=== PATIENT | female | born 1990 | race Caucasian/White ===

== ENCOUNTER 2018-05-12 14:13 | Emergency (ER) | payer SELFPAY ==
--- NOTE | 2018-05-12 17:12 | RAD REPORT ---
EXAM DESCRIPTION: RAD - Hip Right 2 View - 05/12/2018 5:04 pm CLINICAL HISTORY: Right hip pain FINDINGS: No fracture or dislocation is seen. No bone or joint abnormality is seen
[2018-05-12] MEDS ORDERED: HYDROCODONE/APAP 10/325 TAB ONE (17:50)
--- NOTE | 2018-05-12 17:57 | EDPHYS ---
Physician Documentation [facility] Name: Genesis Hu Age: 27 yrs Sex: Female : 1990 Arrival Date: 05/12/2018 Time: 14:17 Bed 9 Private MD: ED Physician Alverto Ferrer HPI: 05/12 16:45 This 27 yrs old Female presents to ER via Ambulatory with complaints of Hip kav Pain. 16:49 The patient or guardian reports decreased range of motion, pain. that occurred at an kav unknown site, sustained from unknown reason, There is no obvious deformity, The patient is able to self ambulate. The patient is able to bear their full body weight. There is no radiation of the patient's discomfort. The complaints affect the abdomen and right hip. Onset: The symptoms/episode began/occurred acutely, just prior to arrival. Modifying factors: The symptoms are alleviated by OTC meds, the symptoms are aggravated by external rotation. Associated signs and symptoms: Pertinent positives: weakness, of the right hip, Pertinent negatives: fever. Severity of symptoms: At their worst the symptoms were severe, a " 10" out of "10". The patient has experienced a previous episode, approximately 2 years ago. The patient has not recently seen a physician. 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 - Social history:: Smoking status: Patient/guardian denies using tobacco. - Ebola Screening: : Patient denies travel to an Ebola-affected area in the 21 days before illness onset. - Family history:: not pertinent. - Hospitalizations: : No recent hospitalization is reported. ROS: 16:54 Constitutional: Negative for fever, chills, and weight loss, Eyes: Negative for injury, kav pain, redness, and discharge, ENT: Negative for injury, pain, and discharge, Neck: Negative for injury, pain, and swelling, Cardiovascular: Negative for chest pain, palpitations, and edema, Respiratory: Negative for shortness of breath, cough, wheezing, and pleuritic chest pain, Abdomen/GI: Negative for abdominal pain, nausea, vomiting, diarrhea, and constipation, Back: Negative for injury and pain, : Negative for injury, bleeding, discharge, and swelling, Skin: Negative for injury, rash, and discoloration, Neuro: Negative for headache, weakness, numbness, tingling, and seizure, Psych: Negative for depression, anxiety, suicide ideation, homicidal ideation, and hallucinations, Allergy/Immunology: Negative for hives, rash, and allergies, Endocrine: Negative for neck swelling, polydipsia, polyuria, polyphagia, and marked weight changes, Hematologic/Lymphatic: Negative for swollen nodes, abnormal bleeding, and unusual bruising. 16:54 MS/extremity: Positive for pain, of the right hip. Exam: 16:54 Constitutional: This is a well developed, well nourished patient who is awake, alert, kav and in no acute distress. Head/Face: Normocephalic, atraumatic. Eyes: Pupils equal round and reactive to light, extra-ocular motions intact. Lids and lashes normal. Conjunctiva and sclera are non-icteric and not injected. Cornea within normal limits. Periorbital areas with no swelling, redness, or edema. ENT: Nares patent. No nasal discharge, no septal abnormalities noted. Tympanic membranes are normal and external auditory canals are clear. Oropharynx with no redness, swelling, or masses, exudates, or evidence of obstruction, uvula midline. Mucous membranes moist. Neck: Trachea midline, no thyromegaly or masses palpated, and no cervical lymphadenopathy. Supple, full range of motion without nuchal rigidity, or vertebral point tenderness. No Meningismus. Chest/axilla: Normal chest wall appearance and motion. Nontender with no deformity. No lesions are appreciated. Cardiovascular: Regular rate and rhythm with a normal S1 and S2. No gallops, murmurs, or rubs. Normal PMI, no JVD. No pulse deficits. Respiratory: Lungs have equal breath sounds bilaterally, clear to auscultation and percussion. No rales, rhonchi or wheezes noted. No increased work of breathing, no retractions or nasal flaring. Abdomen/GI: Soft, non-tender, with normal bowel sounds. No distension or tympany. No guarding or rebound. No evidence of tenderness throughout. Back: No spinal tenderness. No costovertebral tenderness. Full range of motion. Skin: Warm, dry with normal turgor. Normal color with no rashes, no lesions, and no evidence of cellulitis. Neuro: Awake and alert, GCS 15, oriented to person, place, time, and situation. Cranial nerves II-XII grossly intact. Motor strength 5/5 in all extremities. Sensory grossly intact. Cerebellar exam normal. Normal gait. Psych: Awake, alert, with orientation to person, place and time. Behavior, mood, and affect are within normal limits. 16:54 Musculoskeletal/extremity: Extremities: noted in the right hip: pain, ROM: limited passive range of motion, in the right hip, Circulation is intact in all extremities. Pulses: noted to be 2+ in the right femoral artery, right popliteal artery, right posterior tibial artery and right dorsalis pedis artery, Sensation intact. Joints: the right hip displays pain at rest, painful range of motion, Weight bearing: able to fully bear weight, without difficulty. Vital Signs: 15:10 BP 117 / 84; Pulse 101; Resp 18; Temp 98.2; Pulse Ox 99% on R/A; Weight 72.57 kg (R); aj1 Height 5 ft. 6 in. (167.64 cm) (R); Pain 10/10; 15:10 Body Mass Index 25.82 (72.57 kg, 167.64 cm) [facility] MDM: 16:45 Medical screening is not applicable. [facility] 17:18 Data reviewed: vital signs, nurses notes, radiologic studies, plain films. [facility] 05/12 17:52 Order name: Urine Dipstick--Ancillary (enter results) 05/12 17:52 Order name: Urine --Ancillary (enter results) 05/12 15:12 Order name: Hip Right 2 View XRAY; Complete Time: 17:17 [facility] Administered Medications: 17:50 Drug: [place] 10 mg-325 mg 1 tabs Route: PO; iw Disposition: 05/13 14:14 Co-signature as Attending Physician, Alverto Ferrer MD I agree with the assessment and kdr plan of care. Disposition: 05/12/18 17:21 Discharged to Home. Impression: Pain in right hip. - Condition is Stable. - Discharge Instructions: Musculoskeletal Pain, Hip Pain. - Prescriptions for Tylenol- Codeine #3 300-30 mg Oral Tablet - take 1 tablet by ORAL route every 6 hours As needed; 10 tablet. - Work release form, Medication Reconciliation Form, Thank You Letter, Prescription Opioid Use form. - Follow up: Gagan Blancas MD; When: 5 - 6 days; Reason: Recheck today's complaints, Continuance of care, Re-evaluation by your physician. - Problem is chronic. - Symptoms have improved. Signatures: Dispatcher [employer] EDJuliana Morejon, RN RN aj1 Alverto Ferrer MD MD kdr Vern, Katherine, RAILROAD CAR PAINTER RAILROAD CAR PAINTER Veronica Banks RN RN iw Corrections: (The following items were deleted from the chart) 05/12 17:57 17:21 05/12/2018 17:21 Discharged to Home. Impression: Pain in right hip. Condition is iw Stable. Forms are Medication Reconciliation Form, Thank You Letter, Antibiotic Education, Prescription Opioid Use. Follow up: Gagan Blancas; When: 5 - 6 days; Reason: Recheck today's complaints, Continuance of care, Re-evaluation by your physician. Problem is chronic. Symptoms have improved. kav
--- NOTE | 2018-05-12 17:57 | ER ---
Nurse's Notes [facility] Name: Genesis Hu Age: 27 yrs Sex: Female : 1990 Arrival Date: 05/12/2018 Time: 14:17 Bed 9 Private MD: Diagnosis: Pain in right hip Presentation: 05/12 15:06 Presenting complaint: Patient states: States that she is double jointed in her hips and aj1 very little cartilage in her hip joints. Last night she was laying down and suddenly she heard her hip pop, and she screamed out in pain. Reports pain to the right hip that radiates down her right leg. Reports numbness in right foot. Transition of care: patient was not received from another setting of care. Onset of symptoms was May 11, 2018. Risk Assessment: Do you want to hurt yourself or someone else? Patient reports no desire to harm self or others. Initial Sepsis Screen: Does the patient meet any 2 criteria? HR > 90 bpm. No. Patient's initial sepsis screen is negative. Does the patient have a suspected source of infection? No. Patient's initial sepsis screen is negative. Care prior to arrival: None. 15:06 Method Of Arrival: Ambulatory aj1 15:06 Acuity: KRISTIN 4 aj1 Triage Assessment: 15:10 General: Appears in no apparent distress. uncomfortable, Behavior is calm, cooperative, aj1 appropriate for age. Pain: Complains of pain in right hip Pain radiates to right leg Pain currently is 10 out of 10 on a pain scale. Neuro: Level of Consciousness is awake, alert, obeys commands. Cardiovascular: Patient's skin is warm and dry. Respiratory: Airway is patent Respiratory effort is even, unlabored, Respiratory pattern is regular, symmetrical. Musculoskeletal: Range of motion: limited in right hip. HOSPICE MUSIC THERAPY: 15:10 LMP 05/07/2018 aj1 Historical: - Allergies: 15:10 Latex, Natural Rubber; aj1 15:10 Bleach (Sodium Hypochlorite); aj1 - Home Meds: 15:10 None [Active]; aj1 - PMHx: 15:10 PCOS; aj1 - PSHx: 15:10 ; aj1 - Immunization history:: Flu vaccine is not up to date. - Social history:: Smoking status: Patient/guardian denies using tobacco. - Ebola Screening: : Patient denies travel to an Ebola-affected area in the 21 days before illness onset. - Family history:: not pertinent. - Hospitalizations: : No recent hospitalization is reported. Screenin:56 Abuse screen: Denies threats or abuse. Denies injuries from another. Nutritional iw screening: No deficits noted. Tuberculosis screening: No symptoms or risk factors identified. Fall Risk None identified. Assessment: 17:10 General: Appears in no apparent distress. Behavior is calm, cooperative. Pain: iw Complains of pain in right leg and pelvis and right hip. Neuro: Level of Consciousness is awake, alert, obeys commands, Oriented to person, place, time, situation, Moves all extremities. Cardiovascular: Patient's skin is warm and dry. Respiratory: Respiratory effort is even, unlabored. Derm: Skin is pink, warm \T\ dry. normal. Musculoskeletal: Range of motion: limited in right hip Reports pain in right hip. Vital Signs: 15:10 BP 117 / 84; Pulse 101; Resp 18; Temp 98.2; Pulse Ox 99% on R/A; Weight 72.57 kg (R); aj1 Height 5 ft. 6 in. (167.64 cm) (R); Pain 10/10; 15:10 Body Mass Index 25.82 (72.57 kg, 167.64 cm) aj1 ED Course: 14:17 Patient arrived in ED. mr 15:09 Triage completed. aj1 15:10 Arm band placed on Patient placed in an internal wait recliner, Patient notified of aj1 wait time. 15:38 Jerrica Hi FNP is PHCP. kav 16:15 Veronica Mcdermott, RN is Primary Nurse. iw 16:53 Patient moved to radiology via wheelchair. tm4 16:58 X-ray completed. Patient tolerated procedure well. tm4 16:59 Patient moved back from radiology. tm4 17:00 Hip Right 2 View XRAY In Process Unspecified. EDMS 17:20 Gagan Blancas MD is Referral Physician. kav 17:23 Jerrica Hi FNP is PHCP. kav 17:24 Alverto Ferrer MD is Attending Physician. kav 17:57 Patient has correct armband on for positive identification. iw 17:57 No provider procedures requiring assistance completed. Patient did not have IV access iw during this emergency room visit. Administered Medications: 17:50 Drug: [place] 10 mg-325 mg 1 tabs Route: PO; iw Outcome: 17:21 Discharge ordered by . river 17:56 Discharged to home via wheelchair, with family. iw 17:56 Condition: good 17:56 Discharge instructions given to patient, family, Instructed on discharge instructions, follow up and referral plans. medication usage, Demonstrated understanding of instructions, follow-up care, medications, Prescriptions given X 1. 17:57 Patient left the ED. iw Signatures: Dispatcher [employer] EDMS Juliana Cazares, IRENE RN aj1 Jerrica Hi, RUG UNDERLAY MACHINE OPERATOR RUG UNDERLAY MACHINE OPERATOR Sandra Cespedes mr Rosie Maloney tm4 Veronica Mcdermott, IRENE RN iw
[2018-05-12 18:00] VITALS: BP 117/84; TEMP 98.2; O2SAT 99
[2018-05-12 18:33] LABS: Urine Blood 2+ (NEG); Urine Glucose NEGATIVE (NEG); Urine Protein TRACE (NEG); Urine Specific Gravity >1.030 (1.005-1.030); Urine pH 5.5 (5.0-7.0)
== END 2018-05-12 17:57 | disposition home or self-care (01) ==
LOC: ER 14:13
DX: M25.551 Pain in right hip (principal); Z91.040 Latex allergy status; Z91.048 Other nonmedicinal substance allergy status
CPT/HCPCS: 81003; 81025; 99283

== ENCOUNTER 2018-06-24 16:22 | Emergency (ER) | payer SELFPAY ==
[2018-06-24 17:13] LABS: Urine Blood 3+ (NEG); Urine Glucose NEGATIVE (NEG); Urine Protein 2+ (NEG); Urine Specific Gravity 1.015 (1.005-1.030); Urine pH 6.5 (5.0-7.0)
[2018-06-24 17:15] LABS: Absolute Lymphocytes (CBC) 2.1 K/uL (0.7-4.9); Absolute Monocytes 0.5 K/uL (0.1-1.3); Absolute Neutrophil 5.2 K/uL (1.8-8.0); Basophils % 0.6 % (0-1.3); Eosinophils % 3.1 % (0-4.4); Lymphocytes % 25.6 % (15.3-44.8); MCH 29.1 pg (27.0-35.0); MCV 86.6 fL (80-100); Monocytes % 5.7 % (3.3-12.3)
[2018-06-24 17:28] LABS: Potassium 3.8 mmol/L (3.5-5.1)
--- NOTE | 2018-06-24 18:11 | RAD REPORT ---
EXAM DESCRIPTION: US - Transvaginal Study Probe - 06/24/2018 5:28 pm CLINICAL HISTORY: Vaginal bleeding;Abd pain Pelvic pain. COMPARISON: TRANSVAGINAL STUDY PROBE dated 04/21/2011 FINDINGS: The uterus is normal in size, shape and echotexture. The uterus measures 8.9 x 5.6 x 5.3 c m. The endometrial stripe measures 19 mm. Both ovaries are normal in size, shape and echotexture. The right ovary measures 4.4 x 3.4 x 3.3 cm. The left ovary measures 2.7 x 1.8 x 1.7 cm. No ovarian or parovarian lesions. No adnexal masses. Normal Doppler blood flow was demonstrated to both ovaries. No significant pelvic ascites. IMPRESSION: Unremarkable study.
--- NOTE | 2018-06-24 18:16 | ER ---
Nurse's Notes [facility] Name: Genesis Hu Age: 27 yrs Sex: Female : 1990 Arrival Date: 06/24/2018 Time: 16:25 Bed 25 Private MD: None, None Diagnosis: Abnormal uterine and vaginal bleeding, unspecified Presentation: 06/24 16:30 Presenting complaint: Patient states: vaginal bleeding with large clots that started sv yesterday. Pt reports using 2 super pad every hour. Pt reports dizziness. Transition of care: patient was not received from another setting of care. Onset of symptoms was June 23, 2018. Care prior to arrival: None. 16:30 Method Of Arrival: Ambulatory sv 16:30 Acuity: KRISTIN 3 sv 18:31 Risk Assessment: Do you want to hurt yourself or someone else? Patient reports no mg2 desire to harm self or others. Initial Sepsis Screen: Does the patient meet any 2 criteria? No. Patient's initial sepsis screen is negative. Does the patient have a suspected source of infection? No. Patient's initial sepsis screen is negative. 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 - Social history:: Smoking status: Patient/guardian denies using tobacco. - Ebola Screening: : No symptoms or risks identified at this time. Screenin:30 Abuse screen: Denies threats or abuse. Denies injuries from another. Nutritional mg2 screening: No deficits noted. Tuberculosis screening: No symptoms or risk factors identified. Fall Risk None identified. Assessment: 17:30 Musculoskeletal: Circulation, motion, and sensation intact. mg2 18:29 General: Appears in no apparent distress. comfortable, Behavior is calm, cooperative. mg2 Pain: Denies pain. Neuro: Level of Consciousness is awake, alert, obeys commands, Oriented to person, place, time, situation. Cardiovascular: No deficits noted. Respiratory: No deficits noted. GI: No deficits noted. : Urine is blood tinged, Reports vaginal bleeding that is with clots. EENT: No signs and/or symptoms were reported regarding the EENT system. Derm: Skin is intact, Skin is pink, warm \T\ dry. normal. Vital Signs: 16:31 BP 134 / 75; Pulse 77; Resp 18; Temp 98.6; Pulse Ox 98% ; Weight 72.57 kg; Height 5 ft. sv 6 in. (167.64 cm); Pain 3/10; 18:00 BP 127 / 82 RA Supine (auto/reg); Pulse 75 MON; Resp 18 S; Pulse Ox 100% on R/A; Pain jp3 5/10; 18:08 BP 130 / 81 RA Sitting (auto/reg); Pulse 66 MON; Resp 18 S; Pulse Ox 100% on R/A; Pain jp3 5/10; 18:12 BP 135 / 73 RA Standing (auto/reg); Pulse 85 MON; Resp 18 S; Pulse Ox 100% on R/A; Pain jp3 5/10; 16:31 Body Mass Index 25.82 (72.57 kg, 167.64 cm) sv ED Course: 16:25 Patient arrived in ED. sb2 16:25 None, None is Private Physician. sb2 16:31 Triage completed. sv 16:32 Arm band placed on right wrist. sv 16:38 Charity Bates [facility]C [facility]. kb 16:38 Guillermo Roca MD is Attending Physician. kb 16:50 Initial lab(s) drawn, by me, sent to lab. Urine collected: clean catch specimen, clear, jp3 blood tinged. 16:54 Radiology exam delayed due to ultrasound delay due to blood being drawn. cy 16:55 Inserted saline lock: 22 gauge in left antecubital area, using aseptic technique. Blood jp3 collected. 17:11 Placed in gown. Bed in low position. Call light in reach. Side rails up X 1. Warm jp3 blanket given. Pillow given. Pulse ox on. NIBP on. 17:12 Basic Metabolic Panel Sent. jp3 17:12 CBC with Diff Sent. jp3 17:28 US Transvaginal Study (Probe) In Process Unspecified. EDMS 18:21 Shiva Alva, RN is Primary Nurse. mg2 18:23 IV discontinued, intact, bleeding controlled, No redness/swelling at site. Pressure jp3 dressing applied. 18:31 No provider procedures requiring assistance completed. mg2 18:31 IV discontinued. mg2 Administered Medications: No medications were administered Outcome: 18:15 Discharge ordered by . jose 18:31 Discharged to home ambulatory, with family. mg2 18:31 Condition: good 18:31 Discharge instructions given to patient, family, Instructed on discharge instructions, follow up and referral plans. Demonstrated understanding of instructions, follow-up care. 18:32 Patient left the ED. mg2 Signatures: Dispatcher [employer] EDMS Charity Bates, SHAJI-C SENIOR INFORMATION SECURITY CONSULTANT-Elyssa Vaughn, RN RN sv Carolin Bruno Sheri sb2 Shiva Alva, IRENE RN mg2 Alfredito Fernández jp3
--- NOTE | 2018-06-24 18:16 | EDPHYS ---
Physician Documentation [facility] Name: Genesis Hu Age: 27 yrs Sex: Female : 1990 Arrival Date: 06/24/2018 Time: 16:25 Bed 25 Private MD: None, None ED Physician Guillermo Roca HPI: 06/24 16:43 This 27 yrs old Female presents to ER via Ambulatory with complaints of kb Vaginal Bleeding. 16:43 The patient presents with vaginal bleeding that is moderate, heavy, with clots. Onset: kb The symptoms/episode began/occurred at 12:00. Modifying factors: The symptoms are alleviated by nothing, the symptoms are aggravated by nothing. Associated signs and symptoms: Pertinent positives: vaginal bleeding, Pertinent negatives: constipation, cramping, diarrhea, dyspareunia, dysuria, fever, hematuria, nausea, urinary frequency, vaginal discharge, vomiting. Severity of symptoms: At their worst the symptoms were moderate, in the emergency department the symptoms are unchanged. The patient is sexually active. The patient's method of control includes tubal ligation. The patient has not experienced similar symptoms in the past. The patient has not recently seen a physician. 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 - Social history:: Smoking status: Patient/guardian denies using tobacco. - Ebola Screening: : No symptoms or risks identified at this time. ROS: 16:47 Constitutional: Negative for fever, chills, and weight loss, Cardiovascular: Negative kb for chest pain, palpitations, and edema, Respiratory: Negative for shortness of breath, cough, wheezing, and pleuritic chest pain, Back: Negative for injury and pain, MS/Extremity: Negative for injury and deformity, Skin: Negative for injury, rash, and discoloration, Neuro: Negative for headache, weakness, numbness, tingling, and seizure. 16:47 Abdomen/GI: Positive for abdominal pain. 16:47 : Positive for vaginal bleeding. Exam: 16:47 Constitutional: This is a well developed, well nourished patient who is awake, alert, kb and in no acute distress. Head/Face: Normocephalic, atraumatic. Neck: Trachea midline, no thyromegaly or masses palpated, and no cervical lymphadenopathy. Supple, full range of motion without nuchal rigidity, or vertebral point tenderness. No Meningismus. Chest/axilla: Normal chest wall appearance and motion. Nontender with no deformity. No lesions are appreciated. Cardiovascular: Regular rate and rhythm with a normal S1 and S2. No gallops, murmurs, or rubs. Normal PMI, no JVD. No pulse deficits. Respiratory: Lungs have equal breath sounds bilaterally, clear to auscultation and percussion. No rales, rhonchi or wheezes noted. No increased work of breathing, no retractions or nasal flaring. Skin: Warm, dry with normal turgor. Normal color with no rashes, no lesions, and no evidence of cellulitis. MS/ Extremity: Pulses equal, no cyanosis. Neurovascular intact. Full, normal range of motion. Neuro: Awake and alert, GCS 15, oriented to person, place, time, and situation. Cranial nerves II-XII grossly intact. Motor strength 5/5 in all extremities. Sensory grossly intact. Cerebellar exam normal. Normal gait. 16:47 Abdomen/GI: Inspection: abdomen appears normal, Bowel sounds: normal, Palpation: mild abdominal tenderness, in the suprapubic area, right lower quadrant and left lower quadrant. Vital Signs: 16:31 BP 134 / 75; Pulse 77; Resp 18; Temp 98.6; Pulse Ox 98% ; Weight 72.57 kg; Height 5 ft. sv 6 in. (167.64 cm); Pain 3/10; 18:00 BP 127 / 82 RA Supine (auto/reg); Pulse 75 MON; Resp 18 S; Pulse Ox 100% on R/A; Pain jp3 5/10; 18:08 BP 130 / 81 RA Sitting (auto/reg); Pulse 66 MON; Resp 18 S; Pulse Ox 100% on R/A; Pain jp3 5/10; 18:12 BP 135 / 73 RA Standing (auto/reg); Pulse 85 MON; Resp 18 S; Pulse Ox 100% on R/A; Pain jp3 5/10; 16:31 Body Mass Index 25.82 (72.57 kg, 167.64 cm) sv MDM: 16:38 Patient medically screened. kb 16:46 Data reviewed: vital signs, nurses notes. Data interpreted: Pulse oximetry: on room air kb is 98 %. Interpretation: normal. 18:00 Counseling: I had a detailed discussion with the patient and/or guardian regarding: the kb historical points, exam findings, and any diagnostic results supporting the discharge/admit diagnosis, lab results, radiology results, the need for outpatient follow up, an OB/Gyne specialist, to return to the emergency department if symptoms worsen or persist or if there are any questions or concerns that arise at home. 06/24 16:42 Order name: CBC with Diff; Complete Time: 17:28 kb 06/24 16:42 Order name: Basic Metabolic Panel; Complete Time: 17:28 kb 06/24 16:42 Order name: Urine Dipstick-Ancillary (obtain specimen); Complete Time: 17:12 kb 06/24 16:42 Order name: US Transvaginal Study (Probe); Complete Time: 18:11 kb 06/24 17:11 Order name: Urine Dipstick--Ancillary (enter results); Complete Time: 17:15 mb4 06/24 17:11 Order name: Urine --Ancillary (enter results); Complete Time: 17:15 mb4 06/24 16:42 Order name: Urine Test (obtain specimen); Complete Time: 17:12 kb 06/24 17:46 Order name: Orthostatics; Complete Time: 18:16 kb Administered Medications: No medications were administered Disposition: 06/25 08:28 Co-signature as Attending Physician, Guillermo Roca MD I agree with the assessment and wa plan of care. Disposition: 06/24/18 18:15 Discharged to Home. Impression: Abnormal uterine and vaginal bleeding, unspecified. - Condition is Stable. - Discharge Instructions: Abnormal Uterine Bleeding, [id number]. - Medication Reconciliation Form, Thank You Letter, Antibiotic Education, Prescription Opioid Use, Work release form form. - Follow up: Emergency Department; When: As needed; Reason: Worsening of condition. Follow up: Private Physician; When: 2 - 3 days; Reason: Recheck today's complaints, Continuance of care, Re-evaluation by your physician. Signatures: Dispatcher [employer] EDMS Charity Bates, LEGAL COUNSEL-C LEGAL COUNSEL-Ckb Elyssa Wright, RN RN sv Guillermo Roca MD MD wa Gardose, Michele, RN RN mg2 Corrections: (The following items were deleted from the chart) 06/24 18:32 18:15 06/24/2018 18:15 Discharged to Home. Impression: Abnormal uterine and vaginal mg2 bleeding, unspecified. Condition is Stable. Discharge Instructions: Abnormal Uterine Bleeding, [id number]. Forms are Medication Reconciliation Form, Thank You Letter, Antibiotic Education, Prescription Opioid Use. Follow up: Emergency Department; When: As needed; Reason: Worsening of condition. Follow up: Private Physician; When: 2 - 3 days; Reason: Recheck today's complaints, Continuance of care, Re-evaluation by your physician. kb
[2018-06-24 18:44] VITALS: TEMP 98.6
[2018-06-24 18:45] VITALS: O2SAT 100
[2018-06-24 18:47] VITALS: BP 135/73
== END 2018-06-24 18:32 | disposition home or self-care (01) ==
LOC: ER 16:22
DX: N93.9 Abnormal uterine and vaginal bleeding, unspecified (principal); Z91.040 Latex allergy status; Z91.048 Other nonmedicinal substance allergy status
CPT/HCPCS: 36415; 76830; 80048; 81003; 81025; 85025; 99284

== ENCOUNTER 2021-02-13 21:25 | Emergency (ER) | payer SELFPAY ==
--- OUTSIDE RECORDS SUMMARY | 2021-02-13 21:29 | XMS REPORT | Continuity of Care Document ---
:1990 Author Organization [facility] t Address [address] [place] [address] Care Team Providers Name Role Phone Nat Sweeney Attending Clinician Gaby Brower MD Attending Clinician Fuad BEAN Attending Clinician Doctor Unassigned, Name Attending Clinician Unavailable Daniela Valle MD Attending Clinician Problems This patient has no known problems. Allergies, Adverse Reactions, Alerts This patient has no known allergies or adverse reactions. Medications This patient has no known medications. Procedures This patient has no known procedures. Encounters Start End Encounter Admission Attending Care Care Encounter Source Date/Time Date/Time Type Type Clinicians Facility Department ID 2020-11-25 2020-11-25 Emergency Kyra Kraft [facility] [id number] 15:24:00 20:37:00 Nat Lyons [id number] [place] [id number] [place] [id number] 2020-10-31 2020-10-31 Emergency Farhat Brower [facility] [id number] 09:18:00 12:22:00 [address] [place] [id number] [place] [id number] [place] [id number] 2020-09-11 2020-09-11 Emergency Kyra Kraft [facility] [id number] 14:32:00 16:08:00 Nat Serena [id number] [place] [id number] [place] [id number] 2020-02-03 2020-02-03 [id number] 17:08:08 18:20:00 Anjali Serena [id number] [place] [id number] [place] [id number] 2020-02-03 2020-02-03 Orders Doctor DAVID [id number] 00:00:00 00:00:00 Only Unassigned, ANGIE [id number] [facility] [id number] 2020-01-10 2020-01-11 Emergency [facility] [id number] 23:46:02 01:01:00 [place] [id number] [place] [id number] [place] [id number] 2019-12-18 2019-12-18 Emergency Kyra Kraft [facility] [id number] 17:24:37 18:57:00 Nat Serena [id number] [place] [id number] [place] [id number] 2019-12-18 2019-12-18 Orders Doctor DAVID [id number] 00:00:00 00:00:00 Only Unassigned, ANGIE [id number] [facility] [id number] 2019-06-29 2019-06-29 Emergency [facility] [id number] 02:13:29 04:06:00 Jose David Lyons [id number] [place] [id number] [place] [address] [id number] [id number] Results This patient has no known results.
[2021-02-14] MEDS ORDERED: HYDROCODONE/APAP 5/325 MG TAB ONE (00:37)
--- NOTE | 2021-02-14 01:08 | EDPHYS ---
Physician Documentation [facility] Name: Genesis Hu Age: 30 yrs Sex: Female : 1990 Arrival Date: 02/13/2021 Time: 21:27 Bed 2 Private MD: ED Physician Timmy Barrera HPI: 02/13 23:19 This 30 yrs old Female presents to ER via Wheelchair with complaints of Fall rn Injury, Leg Swelling. 23:19 Details of fall: The patient fell from an upright position. Onset: The symptoms/episode rn began/occurred 3 day(s) ago. Associated injuries: The patient sustained right ankle and foot. Severity of symptoms: At their worst the symptoms were moderate, in the emergency department the symptoms have improved. The patient has not experienced similar symptoms in the past. The patient has not recently seen a physician. Report lightheaded, fell on step, 3 days ago, reports hurts to walk and move on right ankle and foot.. Historical: - Allergies: 21:30 Bleach (Sodium Hypochlorite); ll1 21:30 Latex, Natural Rubber; ll1 - PMHx: 21:30 Anemia; PCOS; ll1 - PSHx: 21:30 ; ll1 - Immunization history:: Flu vaccine is not up to date. - Social history:: Smoking status: Patient reports the use of cigarette tobacco products, smokes one-half pack cigarettes per day. - Family history:: not pertinent. - Hospitalizations: : No recent hospitalization is reported. ROS: 23:19 Constitutional: Negative for fever, chills, and weight loss, MS/Extremity: + right rn ankle and foot injury and pain Skin: Negative for injury, rash, and discoloration. Exam: 23:19 Constitutional: This is a well developed, well nourished patient who is awake, alert, rn and in no acute distress. Skin: Warm, dry with normal turgor. Normal color with no rashes, no lesions, and no evidence of cellulitis. MS/ Extremity: Pulses equal, no cyanosis. Neurovascular intact. No focal bony tenderness, no ecchymosis, minimal swelling Vital Signs: 21:30 BP 141 / 81; Pulse 86; Resp 17; Temp 97.7; Pulse Ox 100% ; Weight 86.18 kg; Height 5 ll1 ft. 6 in. (167.64 cm); Pain 10; 02/14 01:22 BP 120 / 75; Pulse 80; Resp 18; Temp 98; Pulse Ox 100% on R/A; mg2 02/13 21:30 Body Mass Index 30.67 (86.18 kg, 167.64 cm) ll1 MDM: 02/13 23:07 Patient medically screened. rn 02/14 01:07 Differential diagnosis: contusion, fracture, sprain, strain. Data reviewed: vital rn signs, nurses notes, radiologic studies, plain films, and as a result, I will discharge patient. Counseling: I had a detailed discussion with the patient and/or guardian regarding: the historical points, exam findings, and any diagnostic results supporting the discharge/admit diagnosis, radiology results, the need for outpatient follow up, to return to the emergency department if symptoms worsen or persist or if there are any questions or concerns that arise at home. Medical screen evaluation completed. [facility] emergency medical condition absent. Response to treatment: the patient's symptoms have mildly improved after treatment, and as a result, I will discharge patient. Special discussion: I discussed with the patient/guardian in detail that at this point there is no indication for admission to the hospital. It is understood, however, that if the symptoms persist or worsen the patient needs to return immediately for re-evaluation. 02/13 23:16 Order name: DENNISE Ankle RIGHT 3 view rn 02/13 23:16 Order name: DENNISE Foot RIGHT 3 View rn Administered Medications: 00:21 Drug: [place] (HYDROcodone-acetaminophen) 5 mg-325 mg 1 tabs Route: PO; jb4 Disposition: 02/14/21 01:08 Discharged to Home. Impression: Sprain of unspecified ligament of right ankle. - Condition is Stable. - Discharge Instructions: Ankle Sprain. - Medication Reconciliation Form, Thank You Letter, Antibiotic Education, Prescription Opioid Use form. - Follow up: Eulogio Jasso MD; When: As needed; Reason: Recheck today's complaints, Re-evaluation by your physician. - Problem is new. - Symptoms have improved. Signatures: Dispatcher [employer] EDMS Timmy Barrera MD MD rn Bryson, James, RN RN jb4 Shiva Alva RN RN mg2 Juan, Lynsay, RN RN ll1 Corrections: (The following items were deleted from the chart) 01:23 01:08 02/14/2021 01:08 Discharged to Home. Impression: Sprain of unspecified ligament mg2 of right ankle. Condition is Stable. Forms are Medication Reconciliation Form, Thank You Letter, Antibiotic Education, Prescription Opioid Use. Follow up: Eulogio Jasso; When: As needed; Reason: Recheck today's complaints, Re-evaluation by your physician. Problem is new. Symptoms have improved. rn
--- NOTE | 2021-02-14 01:08 | ER ---
Nurse's Notes [facility] Name: Genesis Hu Age: 30 yrs Sex: Female : 1990 Arrival Date: 02/13/2021 Time: 21:27 Bed 2 Private MD: Diagnosis: Sprain of unspecified ligament of right ankle Presentation: 02/13 21:30 Chief complaint: Patient states: Was moving Wednesday. States she got dizzy and passed out ll1 on the steps. R ankle and R foot pain and swelling since. About 10 weeks . G6, P4. Coronavirus screen: Client denies travel out of the [place] in the last 14 days. At this time, the client does not indicate any symptoms associated with coronavirus-19. Ebola Screen: Patient denies travel to an Ebola-affected area in the 21 days before illness onset. Initial Sepsis Screen: Does the patient meet any 2 criteria? No. Patient's initial sepsis screen is negative. Does the patient have a suspected source of infection? No. Patient's initial sepsis screen is negative. Risk Assessment: Do you want to hurt yourself or someone else? Patient reports no desire to harm self or others. Onset of symptoms was February 10, 2021. 21:30 Method Of Arrival: Wheelchair ll1 21:30 Acuity: KRISTIN 4 ll1 Historical: - Allergies: 21:30 Bleach (Sodium Hypochlorite); ll1 21:30 Latex, Natural Rubber; ll1 - PMHx: 21:30 Anemia; PCOS; ll1 - PSHx: 21:30 ; ll1 - Immunization history:: Flu vaccine is not up to date. - Social history:: Smoking status: Patient reports the use of cigarette tobacco products, smokes one-half pack cigarettes per day. - Family history:: not pertinent. - Hospitalizations: : No recent hospitalization is reported. Screenin:32 Abuse screen: Denies threats or abuse. Nutritional screening: No deficits noted. jb4 Tuberculosis screening: No symptoms or risk factors identified. Fall Risk Gait- Impaired (20 pts.). Assessment: 23:27 General: Appears in no apparent distress. uncomfortable, Behavior is calm, cooperative. jb4 Pain: Complains of pain in right foot,right ankle Pain does not radiate. Pain currently is 8 out of 10 on a pain scale. Quality of pain is described as throbbing, Pain began 4 days ago. Neuro: Level of Consciousness is awake, alert, obeys commands, Oriented to person, place, time, situation. Cardiovascular: Patient's skin is warm and dry. Respiratory: Airway is patent Respiratory effort is even, unlabored, Respiratory pattern is regular, symmetrical. GI: No signs and/or symptoms were reported involving the gastrointestinal system. : No signs and/or symptoms were reported regarding the genitourinary system. EENT: No signs and/or symptoms were reported regarding the EENT system. Derm: Skin is intact, Skin is pink, warm \T\ dry. Musculoskeletal: Circulation, motion, and sensation intact. Range of motion: limited in right ankle. 02/14 00:33 Reassessment: Patient appears in no apparent distress at this time. Patient and/or jb4 family updated on plan of care and expected duration. Pain level reassessed. Patient is alert, oriented x 3, equal unlabored respirations, skin warm/dry/pink. Vital Signs: 02/13 21:30 BP 141 / 81; Pulse 86; Resp 17; Temp 97.7; Pulse Ox 100% ; Weight 86.18 kg; Height 5 ll1 ft. 6 in. (167.64 cm); Pain 08/10; 02/14 01:22 BP 120 / 75; Pulse 80; Resp 18; Temp 98; Pulse Ox 100% on R/A; mg2 02/13 21:30 Body Mass Index 30.67 (86.18 kg, 167.64 cm) ll1 ED Course: 02/13 21:27 Patient arrived in ED. cl3 21:30 Arm band placed on. ll1 21:37 Triage completed. ll1 23:07 Timmy Barrera MD is Attending Physician. rn 23:08 Peter Charles, IRENE is Primary Nurse. jb4 23:32 Patient has correct armband on for positive identification. Bed in low position. Call jb4 light in reach. Side rails up X 1. Pulse ox on. NIBP on. 02/14 01:07 Eulogio Jasso MD is Referral Physician. rn 01:23 No provider procedures requiring assistance completed. Patient did not have IV access mg2 during this emergency room visit. 10:14 XRAY Ankle RIGHT 3 view In Process Unspecified. EDMS 10:14 XRAY Foot RIGHT 3 View In Process Unspecified. EDMS Administered Medications: 00:21 Drug: [place] (HYDROcodone-acetaminophen) 5 mg-325 mg 1 tabs Route: PO; jb4 Outcome: 01:08 Discharge ordered by . rn 01:23 Discharged to home via wheelchair. mg2 01:23 Condition: stable 01:23 Discharge instructions given to patient, Instructed on discharge instructions, follow up and referral plans. medication usage, Demonstrated understanding of instructions, follow-up care. 01:23 Patient left the ED. mg2 Signatures: Dispatcher [employer] EDMS Timmy Barrera MD MD rn Bryson, James RN RN jb4 Shiva Alva RN RN mg2 Derrick Martinez3 Marvin Martinez RN RN ll1
[2021-02-14 01:31] VITALS: O2SAT 100
[2021-02-14 01:33] VITALS: BP 120/75; TEMP 98
--- NOTE | 2021-02-14 11:12 | RAD REPORT ---
EXAM DESCRIPTION: Foot Right 3 View 02/14/2021 12:49 AM CDT CLINICAL HISTORY: 30 years, Female, PAIN COMPARISON: None. FINDINGS: 3 X-ray views of the Right foot (frontal lateral and oblique) were performed. No areas of acute bony injuries were demonstrated. No gross soft tissue abnormality is identified. There are no gross intraosseous lesions. No periosteal reaction were seen. There is hallux valg us deformity of approximately 29 degrees. Minimal early spur formation posterior aspect of the calcaneus. IMPRESSION: No acute osseous abnormality. Hallux valgus deformity. Electronically signed by: Clint Child MD 02/14/2021 12:50 AM CDT Due to temporary technical issues with the PACS/Fluency reporting system, reports are being signed by the in house radiologist without review as a courtesy to ensure prompt reporting. The interpreting r adiologist is fully responsible for the content of the report.
--- NOTE | 2021-02-14 11:16 | RAD REPORT ---
EXAM DESCRIPTION: XR Ankle Right 3 View CLINICAL HISTORY: 30 years Female PAIN TECHNIQUE: Three views of the right ankle are provided. COMPARISON: No prior exams provided for comparison. FINDINGS: There is no acute right ankle fracture or dislocation. The ankle mortise and talar dome ar e preserved. Visualized mid foot and hindfoot joint spaces are normal in appearance. There are no agg ressive osseous lesions. Small plantar calcaneal enthesophyte. IMPRESSION: No acute findings in the right ankle. Electronically signed by: Annabel Lugo MD 02/14/2021 12:51 AM CDT Due to temporary technical issues with the PACS/Fluency reporting system, reports are being signed by the in house radiologist without review as a courtesy to ensure prompt reporting. The interpreting r adiologist is fully responsible for the content of the report.
== END 2021-02-14 01:23 | disposition home or self-care (01) ==
LOC: ER 21:25
DX: S93.401A Sprain of unspecified ligament of right ankle, initial encounter (principal); W19.XXXA Unspecified fall, initial encounter; Y93.9 Activity, unspecified; Y92.9 Unspecified place or not applicable; F17.210 Nicotine dependence, cigarettes, uncomplicated; Z91.040 Latex allergy status; Z91.048 Other nonmedicinal substance allergy status
CPT/HCPCS: 99283

== ENCOUNTER 2021-03-17 10:49 | Emergency (ER) | payer SELFPAY ==
--- OUTSIDE RECORDS SUMMARY | 2021-03-17 10:51 | XMS REPORT | Continuity of Care Document ---
:1990 Author Organization [facility] t Address [address] [place] [address] Care Team Providers Name Role Phone Nat [...] Department ID 2020-11-25 2020-11-25 Emergency Kyra Kraft [facility] [id number] 15:24:00 20:37:00 Nat Lyons [id number] [place] [id number] [place] [id number] 2020-10-31 2020-10-31 Emergency Farhat Brower [facility] [id number] 09:18:00 12:22:00 [address] [place] [id number] [place] [id number] [place] [id number] 2020-09-11 2020-09-11 Emergency Kyra Kraft [facility] [id number] 14:32:00 16:08:00 Nat Serena [id number] [place] [id number] [place] [id number] 2020-02-03 2020-02-03 [facility] [id number] 17:08:08 18:20:00 Anjali Serena [id number] [place] [id number] [place] [id number] 2020-02-03 2020-02-03 Orders Doctor DAVID [id number] 00:00:00 00:00:00 Only Unassigned, ANGIE [id number] [facility] [id number] [id number] 2020-01-10 2020-01-11 Emergency [facility] [id number] 23:46:02 01:01:00 Serena [id number] [place] [id number] [place] [id number] 2019-12-18 2019-12-18 Emergency Kyra Kraft [facility] [id number] 17:24:37 18:57:00 Nat Serena [id number] [place] [id number] [place] [id number] 2019-12-18 2019-12-18 Orders Doctor DAVID [id number] 00:00:00 00:00:00 Only Unassigned, ANGIE [id number] [place] [facility] [id number] [id number] 2019-06-29 2019-06-29 Emergency [facility] [id number] 02:13:29 04:06:00 Jose David Lyons [id number] [place] [id number] [place] [id number] Results This patient has no known results.
[2021-03-17 13:51] LABS: SARS-COV-2 RT PCR NEGATIVE (NEGATIVE)
--- NOTE | 2021-03-17 13:55 | ER ---
Nurse's Notes [facility] Name: Genesis Hu Age: 30 yrs Sex: Female : 1990 Arrival Date: 03/17/2021 Time: 10:53 Bed IW2 Private MD: Diagnosis: Acute pharyngitis Presentation: 03/17 11:32 Chief complaint: Patient states: Work at [employer], had my Covid testing done ca1 yesterday, it was Negative. We get tested 1s a week. I woke up this morning with my throat hurting, having flu-like symptoms. 11 weeks. Coronavirus screen: Client denies travel out of the [place] in the last 14 days. At this time, the client does not indicate any symptoms associated with coronavirus-19. Ebola Screen: Patient negative for fever greater than or equal to 101.5 degrees Fahrenheit, and additional compatible Ebola Virus Disease symptoms Patient denies exposure to infectious person. Patient denies travel to an Ebola-affected area in the 21 days before illness onset. No symptoms or risks identified at this time. Initial Sepsis Screen: Does the patient meet any 2 criteria? No. Patient's initial sepsis screen is negative. Does the patient have a suspected source of infection? No. Patient's initial sepsis screen is negative. Risk Assessment: Do you want to hurt yourself or someone else? Patient reports no desire to harm self or others. Onset of symptoms was March 17, 2021. 11:32 Method Of Arrival: Ambulatory ca1 11:32 Acuity: KRISTIN 4 ca1 COTTON STOMPER: 11:34 [facility] 12/2020 ca1 Historical: - Allergies: 11:34 Bleach (Sodium Hypochlorite); ca1 11:34 Latex, Natural Rubber; ca1 11:34 PENICILLINS; ca1 11:34 Amoxicillin; ca1 - PMHx: 11:34 Anemia; PCOS; ca1 - PSHx: 11:34 ; ca1 - Immunization history:: Client reports having NOT received the Covid vaccine. Flu vaccine is not up to date. - Social history:: Smoking status: Patient denies any tobacco usage or history of. Screenin:19 Abuse screen: Denies threats or abuse. Denies injuries from another. Nutritional tr6 screening: No deficits noted. Tuberculosis screening: No symptoms or risk factors identified. Fall Risk None identified. Assessment: 12:18 General: Appears in no apparent distress. Behavior is calm, cooperative, appropriate tr6 for age. Pain: Complains of pain in pt c/o sore throat and cp. Neuro: No deficits noted. Cardiovascular: No deficits noted. Respiratory: Airway is patent Respiratory effort is even, unlabored, relaxed, Breath sounds are clear. GI: No deficits noted. : No deficits noted. Parent/caregiver report the patient having +. EENT: Throat is reddened. Derm: No deficits noted. Musculoskeletal: No deficits noted. Vital Signs: 11:32 BP 119 / 79; Pulse 52; Resp 16 S; Temp 97.3(TE); Pulse Ox 99% on R/A; Weight 86.18 kg ca1 (R); Height 5 ft. 6 in. (167.64 cm) (R); 14:09 BP 128 / 73; Pulse 64; Resp 20; Pulse Ox 99% on R/A; kg 11:32 Body Mass Index 30.67 (86.18 kg, 167.64 cm) ca1 ED Course: 10:53 Patient arrived in ED. mr 10:56 Charity Bates FNP-C [facility]. kb 10:56 Jessica Martines MD is Attending Physician. kb 11:33 Triage completed. ca1 11:34 Arm band placed on right wrist. ca1 12:15 Maddison Martinez, IRENE is Primary Nurse. tr6 12:19 Patient has correct armband on for positive identification. Bed in low position. Call tr6 light in reach. Side rails up X 1. 13:02 Awaiting lab results. sv 14:09 No provider procedures requiring assistance completed. Patient did not have IV access sv during this emergency room visit. 14:09 No provider procedures requiring assistance completed. kg Administered Medications: No medications were administered Outcome: 13:54 Discharge ordered by . kb 14:09 Discharged to home ambulatory. sv 14:09 Condition: stable 14:09 Discharge instructions given to patient, Instructed on discharge instructions, follow up and referral plans. Demonstrated understanding of instructions, follow-up care. 14:09 Patient left the ED. sv Signatures: Charity Bates FNP-C FNP-Ckb Verde, Stephanie, RN RN sv Rivera, Mary mr Nicky Umanzor RN RN ca1 Maddison Martinez RN RN tr6 [place] kg Corrections: (The following items were deleted from the chart) 11:35 11:32 Chief complaint: Patient states: Work at [employer], had my Covid testing done ca1 yesterday, it was Negative. We get tested 1s a week. I woke up this morning with my throat hurting. ca1 11:37 11:32 Chief complaint: Patient states: Work at [employer], had my Covid testing done ca1 yesterday, it was Negative. We get tested 1s a week. I woke up this morning with my throat hurting. 11 weeks. ca1
--- NOTE | 2021-03-17 13:55 | EDPHYS ---
Physician Documentation [facility] Name: Genesis Hu Age: 30 yrs Sex: Female : 1990 Arrival Date: 03/17/2021 Time: 10:53 Bed IW2 Private MD: ED Physician Jessica Martines HPI: 03/17 18:46 This 30 yrs old Female presents to ER via Ambulatory with complaints of Sore kb Throat. 18:46 The patient presents with sore throat. The patient describes throat pain as constant. kb Onset: The symptoms/episode began/occurred this morning. Severity of symptoms: At their worst the symptoms were moderate, in the emergency department the symptoms are unchanged. Modifying factors: The symptoms are alleviated by nothing, the symptoms are aggravated by swallowing, Patient's oral intake status: good. Associated signs and symptoms: Pertinent positives: chills, flu-like symptoms, Sore throat. The patient has not experienced similar symptoms in the past. The patient has not recently seen a physician. 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 Flu vaccine is not up to date. - Social history:: Smoking status: Patient denies any tobacco usage or history of. ROS: 18:45 Abdomen/GI: Negative for abdominal pain, nausea, vomiting, diarrhea, and constipation. kb 18:45 Constitutional: Positive for body aches, chills, malaise. 18:45 ENT: Positive for sore throat. 18:45 All other systems are negative. Exam: 18:44 Constitutional: This is a well developed, well nourished patient who is awake, alert, kb and in no acute distress. Cardiovascular: Regular rate and rhythm with a normal S1 and S2. No gallops, murmurs, or rubs. No pulse deficits. Respiratory: Respirations even and unlabored. No increased work of breathing, no retractions or nasal flaring. Abdomen/GI: Soft, non-tender. No distention Skin: Warm, dry with normal turgor. Normal color. MS/ Extremity: Pulses equal, no cyanosis. Neurovascular intact. Full, normal range of motion. Neuro: Awake and alert, GCS 15, oriented to person, place, time, and situation. Moves all extremities. Normal gait. Psych: Awake, alert, with orientation to person, place and time. Behavior, mood, and affect are within normal limits. 18:44 ENT: TM's: are normal, Nose: is normal, Mouth: is normal, Posterior pharynx: erythema, that is mild. Vital Signs: 11:32 BP 119 / 79; Pulse 52; Resp 16 S; Temp 97.3(TE); Pulse Ox 99% on R/A; Weight 86.18 kg ca1 (R); Height 5 ft. 6 in. (167.64 cm) (R); 14:09 BP 128 / 73; Pulse 64; Resp 20; Pulse Ox 99% on R/A; kg 11:32 Body Mass Index 30.67 (86.18 kg, 167.64 cm) ca1 MDM: 12:17 Patient medically screened. kb 13:54 Data reviewed: vital signs, nurses notes. Data interpreted: Pulse oximetry: on room air kb is 99 %. Interpretation: normal. Counseling: I had a detailed discussion with the patient and/or guardian regarding: the historical points, exam findings, and any diagnostic results supporting the discharge/admit diagnosis, lab results, the need for outpatient follow up, a family practitioner, to return to the emergency department if symptoms worsen or persist or if there are any questions or concerns that arise at home. 03/17 11:36 Order name: Strep; Complete Time: 13:24 ca1 03/17 13:17 Order name: Throat Culture EDMS 03/17 13:51 Order name: COVID-19/FLU A+B; Complete Time: 13:53 EDMS Administered Medications: No medications were administered Disposition: 18:24 Co-signature as Attending Physician, Jessica Martines MD. ma2 Disposition: 03/17/21 13:54 Discharged to Home. Impression: Acute pharyngitis. - Condition is Stable. - Discharge Instructions: Pharyngitis, [id number]. - Medication Reconciliation Form, Thank You Letter, Antibiotic Education, Prescription Opioid Use form. - Follow up: Emergency Department; When: As needed; Reason: Worsening of condition. Follow up: Private Physician; When: 2 - 3 days; Reason: Recheck today's complaints, Continuance of care, Re-evaluation by your physician. Signatures: Dispatcher [employer] EDKY Charity Bates, WOODWORKING MACHINE SETTER-Daniela LAMBERTP-Elyssa Vaughn RN RN Jessica Arzola MD MD ma2 Nicky Umanzor RN RN ca1 Corrections: (The following items were deleted from the chart) 13:12 11:37 Influenza Screen (A \T\ B)+BA.LAB.BRZ ordered. EDKY EDKY 13:12 11:37 CORONAVIRUS+MR.LAB.BRZ ordered. [facility] EDKY 14:09 13:54 03/17/2021 13:54 Discharged to Home. Impression: Acute pharyngitis. Condition is sv Stable. Forms are Medication Reconciliation Form, Thank You Letter, Antibiotic Education, Prescription Opioid Use. Follow up: Emergency Department; When: As needed; Reason: Worsening of condition. Follow up: Private Physician; When: 2 - 3 days; Reason: Recheck today's complaints, Continuance of care, Re-evaluation by your physician. kb
[2021-03-17 14:14] VITALS: TEMP 97.3; O2SAT 99
[2021-03-17 14:16] VITALS: BP 128/73
== END 2021-03-17 14:09 | disposition home or self-care (01) ==
LOC: ER 10:49
DX: J02.9 Acute pharyngitis, unspecified (principal); Z20.822 Contact with and (suspected) exposure to COVID-19; E28.2 Polycystic ovarian syndrome
CPT/HCPCS: 0240U; 87070; 87081; 99281

== ENCOUNTER 2021-03-22 20:23 | Emergency (ER) | payer SELFPAY ==
--- OUTSIDE RECORDS SUMMARY | 2021-03-22 20:26 | XMS REPORT | Continuity of Care Document ---
:1990 Author Organization [facility] t Address [address] [place] [address] Care Team Providers Name Role Phone Nat [...] Department ID 2020-11-25 2020-11-25 Emergency Kyra Kraft [facility] [id number] 15:24:00 20:37:00 Nat Lyons [id number] [place] [id number] [place] [id number] [id number] 2020-10-31 2020-10-31 Emergency Farhat Brower [facility] [id number] 09:18:00 12:22:[address] [id number] [place] [id number] [place] [id number] 2020-09-11 2020-09-11 Emergency Kyra Kraft [facility] [id number] 14:32:00 16:08:00 Nat Serena [id number] [place] [id number] [place] [id number] [id number] 2020-02-03 2020-02-03 [facility] [id number] 17:08:08 18:20:00 Anjali Serena [id number] [place] [id number] [place] [id number] [id number] 2020-02-03 2020-02-03 Orders Doctor DAVID [id number] 00:00:00 00:00:00 Only Unassigned, ANGIE [id number] [facility] [id number] 2020-01-10 2020-01-11 Emergency [facility] [id number] 23:46:02 01:01:[address] [place] [id number] [place] [id number] [place] [id number] 2019-12-18 2019-12-18 Emergency Kyra Kraft [facility] [id number] 17:24:37 18:57:00 Nat Serena [id number] [place] [id number] [place] [id number] [id number] 2019-12-18 2019-12-18 Orders Doctor DAVID [id number] 00:00:00 00:00:00 Only Unassigned, ANGIE [id number] [facility] [id number] 2019-06-29 2019-06-29 Emergency [facility] [id number] 02:13:29 04:06:00 Jose David Lyons [id number] [place] [id number] [place] [address] [phone] [id number] Results This patient has no known results.
--- NOTE | 2021-03-22 21:53 | ER ---
Nurse's Notes [facility] Name: Genesis Hu Age: 30 yrs Sex: Female : 1990 Arrival Date: 03/22/2021 Time: 20:26 Bed 24 Private MD: Diagnosis: Contusion of right ankle Presentation: 03/22 20:44 Chief complaint: Patient states: About a month ago I was here for Right ankle and was vg1 dx with a severe sprain and torn ligament; Pt stated Today a heavy metal door at work slammed into Right ankle. Swelling noted to Right ankle. Coronavirus screen: Client denies travel out of the [place] in the last 14 days. Ebola Screen: Patient negative for fever greater than or equal to 101.5 degrees Fahrenheit, and additional compatible Ebola Virus Disease symptoms. Initial Sepsis Screen: Does the patient meet any 2 criteria? No. Patient's initial sepsis screen is negative. Does the patient have a suspected source of infection? No. Patient's initial sepsis screen is negative. Risk Assessment: Do you want to hurt yourself or someone else? Patient reports no desire to harm self or others. Onset of symptoms was March 22, 2021. 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 - Social history:: Smoking status: Patient denies any tobacco usage or history of. Screenin:54 Abuse screen: Denies threats or abuse. Nutritional screening: No deficits noted. bb Tuberculosis screening: No symptoms or risk factors identified. Fall Risk None identified. Assessment: 21:54 General: Appears in no apparent distress. uncomfortable, Behavior is calm, cooperative. bb Pain: Complains of pain in lateral aspect of right ankle. Neuro: Level of Consciousness is awake, alert, obeys commands, Oriented to person, place, time, situation. Cardiovascular: Capillary refill < 3 seconds Patient's skin is warm and dry. Respiratory: Respiratory effort is even, unlabored, Respiratory pattern is regular. GI: No signs and/or symptoms were reported involving the gastrointestinal system. Derm: Skin is pink, warm \T\ dry. Musculoskeletal: Swelling present in right ankle Reports pain in right ankle. 22:30 Reassessment: Patient and/or family updated on plan of care and expected duration. Pain bb level reassessed. Patient is alert, oriented x 3, equal unlabored respirations, skin warm/dry/pink. walking boot to right ankle in place pt verbalized understanding of and agrees to plan of care discharge instructions given pt assisted to exit via wheelchair accompanied by family. Vital Signs: 20:44 BP 132 / 98; Pulse 75; Resp 16; Temp 98.2; Pulse Ox 99% ; Weight 86.18 kg; Height 5 ft. vg1 6 in. (167.64 cm); Pain 10/10; 22:32 BP 123 / 89; Pulse 64; Resp 16 S; Pulse Ox 98% on R/A; Pain 8/10; bb 20:44 Body Mass Index 30.67 (86.18 kg, 167.64 cm) vg1 ED Course: 20:26 Patient arrived in ED. am4 20:50 Triage completed. vg1 20:51 Arm band placed on. vg1 21:45 XRAY Ankle RIGHT 3 view In Process Unspecified. EDMS 21:46 Eddie Alonzo PA is PHCP. cp 21:46 Jesus Mcdermott MD is Attending Physician. cp 21:54 Hailey Gamboa, IRENE is Primary Nurse. bb 21:54 Patient has correct armband on for positive identification. Bed in low position. Call bb light in reach. Adult w/ patient. 21:54 No provider procedures requiring assistance completed. Patient did not have IV access bb during this emergency room visit. Administered Medications: 22:11 Drug: Ibuprofen 800 mg Route: PO; bb 22:32 Follow up: Response: No adverse reaction bb 22:11 Drug: Tylenol #3 (300 mg-30 mg) 2 tabs {Note: RASS 0.} Route: PO; bb 22:33 Follow up: Response: No adverse reaction; RASS: Alert and Calm (0) bb Outcome: 21:53 Discharge ordered by . cp 22:33 Discharged to home via wheelchair, with family. adolfo 22:33 Condition: stable 22:33 Discharge instructions given to patient, Instructed on discharge instructions, follow up and referral plans. medication usage, Demonstrated understanding of instructions, follow-up care, medications, Prescriptions given X 2. 22:33 Patient left the ED. adolfo Signatures: Dispatcher [employer] EDHailey Lane RN RN Eddie Xie PA PA cp Garcia, Victoria RN RN vg1 Sheyla Orantes am
--- NOTE | 2021-03-22 21:53 | EDPHYS ---
Physician Documentation [facility] Name: Genesis Hu Age: 30 yrs Sex: Female : 1990 Arrival Date: 03/22/2021 Time: 20:26 Bed 24 Private MD: ED Physician Jesus Mcdermott HPI: 03/22 21:50 This 30 yrs old Female presents to ER via Ambulatory with complaints of Ankle cp Injury. 21:50 The patient presents with a contusion, an injury. The complaints affect the right cp ankle. Onset: The symptoms/episode began/occurred today. Context: resulted from being struck by heavy door, direct blow The patient is unable to bear weight. must have assistance. Associated signs and symptoms: Pertinent negatives: numbness. Modifying factors: the symptoms are aggravated by movement. 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 - Social history:: Smoking status: Patient denies any tobacco usage or history of. ROS: 21:50 Constitutional: Negative for fever. cp 21:50 Cardiovascular: Negative for chest pain. 21:50 Respiratory: Negative for cough, shortness of breath, wheezing. 21:50 Abdomen/GI: Negative for abdominal pain, nausea, vomiting, and diarrhea. 21:50 MS/extremity: Positive for abrasion, pain, of the right ankle, injury, Negative for deformity, paresthesias. 21:50 Skin: Negative for rash. 21:50 Neuro: Negative for numbness, tingling. 21:50 All other systems are negative. Exam: 21:52 Constitutional: The patient appears in no acute distress, alert, awake, well developed, cp well nourished, uncomfortable. 21:52 Head/Face: Normocephalic, atraumatic. cp 21:52 Cardiovascular: Rate: normal. 21:52 Respiratory: the patient does not display signs of respiratory distress, Respirations: normal, no use of accessory muscles, no retractions, labored breathing, is not present. 21:52 Musculoskeletal/extremity: Extremities: grossly normal except: noted in the lateral right ankle and dorsum of right foot: abrasion, pain, tenderness, There is no evidence of decreased ROM, deformity, Pulses: noted to be 2+ in the right dorsalis pedis artery, Sensation intact. Achilles tendon palpated and intact. Vital Signs: 20:44 BP 132 / 98; Pulse 75; Resp 16; Temp 98.2; Pulse Ox 99% ; Weight 86.18 kg; Height 5 ft. vg1 6 in. (167.64 cm); Pain 10/10; 22:32 BP 123 / 89; Pulse 64; Resp 16 S; Pulse Ox 98% on R/A; Pain 8/10; bb 20:44 Body Mass Index 30.67 (86.18 kg, 167.64 cm) vg1 MDM: 21:46 Patient medically screened. cp 21:53 Differential diagnosis: fracture, contusion, laceration. cp 21:53 Data reviewed: vital signs, nurses notes, radiologic studies, plain films. Test cp interpretation: by ED physician or midlevel provider: xrays of right ankle negative for fracture. Counseling: I had a detailed discussion with the patient and/or guardian regarding: the historical points, exam findings, and any diagnostic results supporting the discharge/admit diagnosis, radiology results, to return to the emergency department if symptoms worsen or persist or if there are any questions or concerns that arise at home. 03/22 20:54 Order name: XRAY Ankle RIGHT 3 view 03/22 21:52 Order name: Walking boot; Complete Time: 22:12 cp Administered Medications: 22:11 Drug: Ibuprofen 800 mg Route: PO; bb 22:32 Follow up: Response: No adverse reaction bb 22:11 Drug: Tylenol #3 (300 mg-30 mg) 2 tabs {Note: RASS 0.} Route: PO; bb 22:33 Follow up: Response: No adverse reaction; RASS: Alert and Calm (0) bb Disposition: 22:00 Chart complete. 03/23 07:21 Co-signature as Attending Physician, Jesus Mcdermott MD. [email or web address] Disposition: 03/22/21 21:53 Discharged to Home. Impression: Contusion of right ankle. - Condition is Stable. - Discharge Instructions: Ankle Pain. - Prescriptions for Naprosyn 500 mg Oral Tablet - take 1 tablet by ORAL route 2 times per day take with food; 20 tablet. Tramadol 50 mg Oral Tablet - take 1 tablet by ORAL route every 8 hours as needed; 15 tablet. - Work release form, Medication Reconciliation Form, Thank You Letter, Antibiotic Education, Prescription Opioid Use form. - Follow up: Private Physician; When: 1 week; Reason: Recheck today's complaints. - Problem is new. - Symptoms have improved. Signatures: Dispatcher [employer] EDMS Hailey Gamboa RN RN bb Eddie Alonzo PA PA Rosalind Quinn RN RN vg1 Jesus Mcdermott MD MD [email or web address] Corrections: (The following items were deleted from the chart) 03/22 22:33 21:53 03/22/2021 21:53 Discharged to Home. Impression: Contusion of right ankle. bb Condition is Stable. Forms are Medication Reconciliation Form, Thank You Letter, Antibiotic Education, Prescription Opioid Use. Follow up: Private Physician; When: 1 week; Reason: Recheck today's complaints. Problem is new. Symptoms have improved. cp 03/23 00:50 03/22 19:50 MS/extremity: Positive for abrasion, pain, of the right ankle, injury, cp Negative for deformity, paresthesias, cp 03/23 00:50 03/22 19:50 Constitutional: Negative for fever, cp cp 03/23 00:50 03/22 19:50 Cardiovascular: Negative for chest pain, cp cp 03/23 00:50 03/22 19:50 Respiratory: Negative for cough, shortness of breath, wheezing, cp cp 03/23 00:50 03/22 19:50 Abdomen/GI: Negative for abdominal pain, nausea, vomiting, and diarrhea, cp cp 03/23 00:50 03/22 19:50 Skin: Negative for rash, cp cp 03/23 00:50 03/22 19:50 Neuro: Negative for numbness, tingling, cp cp 03/23 00:50 03/22 19:50 All other systems are negative, cp cp
--- NOTE | 2021-03-22 21:57 | RAD REPORT ---
EXAM DESCRIPTION: RAD - Ankle Right 3 View - 03/22/2021 9:45 pm CLINICAL HISTORY: Pain;Swelling COMPARISON: <Comparisons> FINDINGS: No evidence of acute fracture or dislocation. Small calcaneal spur.
[2021-03-22] MEDS ORDERED: IBUPROFEN 400 MG TAB ONE (22:23)
[2021-03-22] MEDS ORDERED: CODEINE 30MG/APAP 300MG TAB ONE (22:23)
[2021-03-22 22:39] VITALS: TEMP 98.2
[2021-03-22 22:40] VITALS: BP 123/89; O2SAT 98
== END 2021-03-22 22:33 | disposition home or self-care (01) ==
LOC: ER 20:23
DX: S90.01XA Contusion of right ankle, initial encounter (principal); W22.8XXA Striking against or struck by other objects, initial encounter
CPT/HCPCS: 99283

== ENCOUNTER 2021-06-11 10:05 | Emergency (ER) | payer SELFPAY ==
--- OUTSIDE RECORDS SUMMARY | 2021-06-11 10:07 | XMS REPORT | Continuity of Care Document ---
:1990 Author Organization [facility] t Address [address] [place] [address] Care Team Providers Name Role Phone Nat Sweeney Attending Clinician Gaby Borwer MD Attending Clinician Fuad BEAN Attending Clinician [...] Department ID 2020-11-25 2020-11-25 Emergency Kyra Kraft [facility] [id number] [id number] 15:24:00 20:37:00 aNt [place]ons [id number] [place] [id number] [place] [id number] [id number] 2020-10-31 2020-10-31 Emergency Farhat Brower [facility] [id number] 09:18:00 12:22:00 [place] [id number] [place] [id number] [place] [id number] [id number] 2020-09-11 2020-09-11 Emergency Kyra Kraft [facility] [id number] 14:32:00 16:08:00 Nat Serena [id number] [place] [id number] [place] [id number] 2020-02-03 2020-02-03 [facility] [id number] 17:08:08 18:20:00 Anjali Serena [id number] [place] [id number] [place] [id number] [id number] 2020-02-03 2020-02-03 Orders Doctor DAVID [id number] [id number] 00:00:00 00:00:00 Only Unassigned, ANGIE [id number] [place] [facility] [id number] [id number] 2020-01-10 2020-01-11 Emergency [facility] [id number] 23:46:02 01:01:00 [place]rena [id number] [place] [id number] [place] [id number] [id number] 2019-12-18 2019-12-18 Emergency Kyra Kraft [facility] 1.2.840.114 [id number] 17:24:37 18:57:00 Nat Serena [id number] [place] [id number] [place] [id number] 2019-12-18 2019-12-18 Orders Doctor DAVID [id number] [id number] 00:00:00 00:00:00 Only Unassigned, ANGIE 350.1.13.10 [place] [facility] [id number] [id number] 2019-06-29 2019-06-29 Emergency [facility] [id number] 02:13:29 04:06:00 Jose David Lyons [id number] [place] [id number] [place] [id number] [id number] Results This patient has no known results.
--- NOTE | 2021-06-11 11:44 | EDPHYS ---
Physician Documentation [facility] Name: Genesis Hu Age: 30 yrs Sex: Female : 1990 Arrival Date: 06/11/2021 Time: 10:09 Bed Waiting Private MD: ED Physician Alvetro Ferrer HPI: 06/11 11:50 This 30 yrs old Female presents to ER via Ambulatory with complaints of kb Swollen Lymph Nodes, fatigue. 11:50 The patient presents with sore throat. The patient describes throat pain as constant. kb Onset: The symptoms/episode began/occurred 4 day(s) ago. Severity of symptoms: At their worst the symptoms were moderate, in the emergency department the symptoms are unchanged. Modifying factors: The symptoms are alleviated by nothing, the symptoms are aggravated by swallowing. Associated signs and symptoms: Pertinent positives: fever, flu-like symptoms, malaise, Sore throat. The patient has not experienced similar symptoms in the past. The patient has not recently seen a physician. 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 - Social history:: Smoking status: Patient denies any tobacco usage or history of. ROS: 11:48 Constitutional: Positive for fatigue, fever, malaise. kb 11:48 ENT: Positive for sore throat. 11:48 All other systems are negative. 11:50 Respiratory: Negative for shortness of breath, cough, wheezing, and pleuritic chest kb pain. Exam: 11:48 Constitutional: This is a well developed, well nourished patient who is awake, alert, kb and in no acute distress. Head/Face: Normocephalic, atraumatic. Respiratory: Respirations even and unlabored. No increased work of breathing, no retractions or nasal flaring. Skin: Warm, dry with normal turgor. Normal color. MS/ Extremity: Pulses equal, no cyanosis. Neurovascular intact. Full, normal range of motion. Neuro: Awake and alert, GCS 15, oriented to person, place, time, and situation. Moves all extremities. Normal gait. Psych: Awake, alert, with orientation to person, place and time. Behavior, mood, and affect are within normal limits. 11:48 ENT: Posterior pharynx: Airway: normal, no evidence of obstruction, Tonsils: bilaterally enlarged, with erythema, with exudate, Uvula: normal, midline, swelling, that is moderate, erythema, that is moderate, exudate, that is moderate. Vital Signs: 11:41 BP 134 / 81; Pulse 102; Resp 15; Temp 98.5; Pulse Ox 100% ; jl7 MDM: 11:41 Patient medically screened. kb 11:47 Data reviewed: vital signs, nurses notes. Data interpreted: Pulse oximetry: on room air kb is 100 %. Interpretation: normal. Counseling: I had a detailed discussion with the patient and/or guardian regarding: the historical points, exam findings, and any diagnostic results supporting the discharge/admit diagnosis, the need for outpatient follow up, a family practitioner, to return to the emergency department if symptoms worsen or persist or if there are any questions or concerns that arise at home. 06/11 11:43 Order name: Strep jl7 Administered Medications: 11:53 Drug: GI Cocktail with - (Phenobarbital-Belladonna 10 ml, Maalox Suspension 30 jl7 ml, Lidocaine Liquid 2 % 20 ml) Route: PO; 11:53 Drug: Decadron (dexamethasone) 10 mg Route: IM; Site: right deltoid; jl7 Disposition: 06/12 07:17 Co-signature as Attending Physician, Alverto Ferrer MD I agree with the assessment and kdr plan of care. Disposition Summary: 06/11/21 11:44 Discharge Ordered Location: Home kb Condition: Stable kb Diagnosis - Acute tonsillitis, unspecified kb Followup: kb - With: Emergency Department - When: As needed - Reason: Worsening of condition Followup: kb - With: Private Physician - When: 2 - 3 days - Reason: Recheck today's complaints, Continuance of care, Re-evaluation by your physician Discharge Instructions: - Discharge Summary Sheet kb - Tonsillitis, [id number] kb - Strep Throat, Adult, [id number] kb Forms: - Medication Reconciliation Form kb - Thank You Letter kb - Antibiotic Education kb - Prescription Opioid Use kb Prescriptions: - Zithromax 500 mg Oral Tablet - take 1 tablet by ORAL route once daily for 5 days; 5 tablet; Refills: 0, kb Product Selection Permitted Signatures: Dispatcher [employer] Charity Frazier, SNACK BAR ATTENDANT-C SNACK BAR ATTENDANT-Alverto Raygoza MD MD kdr Leal, Jahala RN RN jl7
--- NOTE | 2021-06-11 11:44 | ER ---
Nurse's Notes [facility] Name: Genesis Hu Age: 30 yrs Sex: Female : 1990 Arrival Date: 06/11/2021 Time: 10:09 Bed Waiting Private MD: Diagnosis: Acute tonsillitis, unspecified Presentation: 06/11 11:39 Chief complaint: Patient states: Sore throat and white patches on tonsils x 4 days. jl7 Coronavirus screen: Client denies travel out of the [place] in the last 14 days. sore throat, Client presents with at least one sign or symptom that may indicate coronavirus-19. Standard/surgical mask placed on the client. Provider contacted for isolation considerations. Ebola Screen: No symptoms or risks identified at this time. Initial Sepsis Screen: Does the patient meet any 2 criteria? No. Patient's initial sepsis screen is negative. Does the patient have a suspected source of infection? No. Patient's initial sepsis screen is negative. Risk Assessment: Do you want to hurt yourself or someone else? Patient reports no desire to harm self or others. Onset of symptoms was June 08, 2021. 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 - Social history:: Smoking status: Patient denies any tobacco usage or history of. Vital Signs: 11:41 BP 134 / 81; Pulse 102; Resp 15; Temp 98.5; Pulse Ox 100% ; jl7 ED Course: 10:09 Patient arrived in ED. ds1 11:41 Charity Bates [facility]-C [facility]. kb 11:41 Alverto Ferrer MD is Attending Physician. kb 11:41 Triage completed. jl7 11:41 Arm band placed on right wrist. jl7 Administered Medications: 11:53 Drug: GI Cocktail with - (Phenobarbital-Belladonna 10 ml, Maalox Suspension 30 jl7 ml, Lidocaine Liquid 2 % 20 ml) Route: PO; 11:53 Drug: Decadron (dexamethasone) 10 mg Route: IM; Site: right deltoid; jl7 Outcome: 11:44 Discharge ordered by . jose 12:22 Patient left the ED. kb Signatures: Charity Bates FNP-C FNP-Ckb Sanford, Demi ds1 Hilario Umanzor RN RN jl7 Corrections: (The following items were deleted from the chart) 11:54 11:53 Decadron (dexamethasone) 10 mg IM in affected area jl7 jl7
[2021-06-11] MEDS ORDERED: LIDOCAINE VISCOUS 2% SOLN 15 ML UDC ONE (12:07)
[2021-06-11] MEDS ORDERED: MAGNES/ALUMIN/SIMET 30ML UCUP ONE (12:07)
[2021-06-11] MEDS ORDERED: dexAMETHasone 10 MG/ML VIAL ONE (12:08)
[2021-06-11] MEDS ORDERED: dexAMETHasone 4 MG/ML VIAL ONE (12:08)
[2021-06-11 12:37] VITALS: BP 134/81; TEMP 98.5; O2SAT 100
== END 2021-06-11 12:22 | disposition home or self-care (01) ==
LOC: ER 10:05
DX: J03.90 Acute tonsillitis, unspecified (principal); Z88.0 Allergy status to penicillin; Z88.1 Allergy status to other antibiotic agents; Z91.040 Latex allergy status; Z91.048 Other nonmedicinal substance allergy status
CPT/HCPCS: 87070; 87081; 96372; 99282; J1100

== ENCOUNTER 2021-08-23 11:54 | Emergency (ER) | payer SELFPAY ==
[2021-08-23] MEDS ORDERED: IBUPROFEN 400 MG TAB ONE (12:54)
[2021-08-23] MEDS ORDERED: ACETAMINOPHEN 500 MG TAB ONE (12:54)
--- NOTE | 2021-08-23 14:07 | RAD REPORT ---
EXAM DESCRIPTION: US - Extremity Venous Uni Ltd - 08/23/2021 1:53 pm CLINICAL HISTORY: Right knee pain COMPARISON: None. TECHNIQUE: Real-time sonographic evaluation of the right lower extremity deep venous system was perf ormed. FINDINGS: Normal compressibility, flow augmentation, phasic flow and spontaneous flow is identified in the right lower extremity deep venous system. No intraluminal filling defects seen. IMPRESSION: No DVT in the right lower extremity.
--- NOTE | 2021-08-23 14:09 | RAD REPORT ---
EXAM DESCRIPTION: RAD - Knee Right 3 View - 08/23/2021 1:21 pm CLINICAL HISTORY: PAIN COMPARISON: No comparisons FINDINGS: No acute fracture. No malalignment. No significant focal degenerative changes. IMPRESSION: No acute osseous abnormality involving the right knee.
--- NOTE | 2021-08-23 14:19 | ER ---
Nurse's Notes [facility] Name: Genesis Hu Age: 31 yrs Sex: Female : 1990 Arrival Date: 08/23/2021 Time: 11:56 Bed 23 Private MD: Diagnosis: Pain in right knee Presentation: 08/23 12:08 Chief complaint: Patient states: right knee pain x 4 days ago. Pt denies known injury. aa5 Coronavirus screen: At this time, the client does not indicate any symptoms associated with coronavirus-19. Ebola Screen: No symptoms or risks identified at this time. Initial Sepsis Screen: Does the patient meet any 2 criteria? HR > 90 bpm. Does the patient have a suspected source of infection? No. Patient's initial sepsis screen is negative. Risk Assessment: Do you want to hurt yourself or someone else? Patient reports no desire to harm self or others. Onset of symptoms was August 2021. 12:08 Method Of Arrival: Wheelchair aa5 12:08 Acuity: KRISTIN 4 aa5 Historical: - Allergies: 12:09 Amoxicillin; aa5 12:09 Bleach (Sodium Hypochlorite); aa5 12:09 Latex, Natural Rubber; aa5 12:09 PENICILLINS; aa5 - PMHx: 12:09 PCOS; aa5 - Immunization history:: Client reports having NOT received the Covid vaccine. - Social history:: Smoking status: Patient denies any tobacco usage or history of. Screenin:18 Abuse screen: Denies threats or abuse. Denies injuries from another. Nutritional jt3 screening: No deficits noted. Tuberculosis screening: No symptoms or risk factors identified. Fall Risk Gait- Impaired (20 pts.). Assessment: 12:18 General: Appears in no apparent distress. Pain: Complains of pain in right leg. jt3 Musculoskeletal: Reports numbness in right leg Pt. reports right knee pain that started 4 days ago. Endorses tingling in bottom of right foot. Denies trauma. Vital Signs: 12:08 BP 128 / 78; Pulse 96; Resp 18 S; Temp 98.0(TE); Pulse Ox 99% on R/A; Weight 81.65 kg aa5 (R); Height 5 ft. 6 in. (167.64 cm) (R); 12:08 Body Mass Index 29.05 (81.65 kg, 167.64 cm) aa5 ED Course: 11:56 Patient arrived in ED. as 12:08 Arm band placed on. aa5 12:09 Triage completed. aa5 12:10 Eddie Alonzo PA is PHCP. cp 12:10 Jessica Martines MD is Attending Physician. cp 12:11 Guero Suggs, RN is Primary Nurse. jt3 12:18 Patient has correct armband on for positive identification. Placed in gown. Bed in low jt3 position. Call light in reach. Side rails up X2. 12:18 No provider procedures requiring assistance completed. jt3 13:21 XRAY Knee RIGHT 3 view In Process Unspecified. EDMS 13:53 US Extremity Venous Unilateral Ltd In Process Unspecified. EDMS Administered Medications: 12:31 Drug: Ibuprofen 800 mg Route: PO; jt3 12:31 Drug: Tylenol 1000 mg Route: PO; jt3 Outcome: 14:18 Discharge ordered by MD. cp 14:34 Discharged to home ch5 14:34 Condition: good 14:34 Discharge instructions given to patient, Prescriptions given X 1. 14:34 Patient left the ED. 5 Signatures: Dispatcher [employer] EDSudha Gomes Audri, RN RN aa5 Eddie Alonoz PA PA Lew Ardon, IRENE RN 5 Guero Suggs, RN RN jt3
--- NOTE | 2021-08-23 14:20 | EDPHYS ---
Physician Documentation [facility] Name: Genesis Hu Age: 31 yrs Sex: Female : 1990 Arrival Date: 08/23/2021 Time: 11:56 Bed 23 Private MD: ED Physician Jessica Martines HPI: 08/23 12:30 This 31 yrs old Female presents to ER via Wheelchair with complaints of Knee cp Pain - swelling, Foot Pain. 12:30 The patient presents with pain, that is acute. cp 12:30 The complaints affect the right knee. Context: resulted from an unknown cause, the cp patient can fully bear weight, the patient is able to ambulate, with moderate difficulty, Problem is a result from a previous injury: No. Onset: The symptoms/episode began/occurred 4 day(s) ago. Modifying factors: the symptoms are aggravated by weight bearing, bending knee. Associated signs and symptoms: Pertinent positives: calf tenderness, Pertinent negatives fever, numbness, rash, warmth. Treatment prior to arrival includes: no previous treatment. Historical: - Allergies: 12:09 Amoxicillin; aa5 12:09 Bleach (Sodium Hypochlorite); aa5 12:09 Latex, Natural Rubber; aa5 12:09 PENICILLINS; aa5 - PMHx: 12:09 PCOS; aa5 - Immunization history:: Client reports having NOT received the Covid vaccine. - Social history:: Smoking status: Patient denies any tobacco usage or history of. ROS: 12:35 MS/extremity: Positive for decreased range of motion, pain, swelling, tenderness, of cp the right knee, Negative for injury or acute deformity, paresthesias. 12:35 Eyes: Negative for injury, pain, redness, and discharge. cp 12:35 Constitutional: Negative for body aches, chills, fever. 12:35 Cardiovascular: Negative for chest pain. 12:35 Respiratory: Negative for shortness of breath, wheezing. 12:35 Abdomen/GI: Negative for abdominal pain. 12:35 Skin: Negative for rash. 12:35 All other systems are negative. Exam: 12:40 Constitutional: The patient appears in no acute distress, alert, awake, well developed, cp well nourished, uncomfortable. 12:40 Head/Face: Normocephalic, atraumatic. cp 12:40 Chest/axilla: Inspection: normal. 12:40 Cardiovascular: Rate: normal. 12:40 Respiratory: the patient does not display signs of respiratory distress, Respirations: normal, no use of accessory muscles, no retractions. 12:40 Abdomen/GI: Exam negative for discomfort, distension, guarding, Inspection: abdomen appears normal. 12:40 Back: pain, is absent, ROM is normal. 12:40 Musculoskeletal/extremity: Extremities: grossly normal except: noted in the right knee: pain, swelling, tenderness, ROM: limited passive range of motion due to pain, in the right knee, overlying skin warm, dry, intact w/o signs of infection. Vital Signs: 12:08 BP 128 / 78; Pulse 96; Resp 18 S; Temp 98.0(TE); Pulse Ox 99% on R/A; Weight 81.65 kg aa5 (R); Height 5 ft. 6 in. (167.64 cm) (R); 12:08 Body Mass Index 29.05 (81.65 kg, 167.64 cm) aa5 MDM: 12:14 Patient medically screened. cp 13:00 Differential diagnosis: closed fracture, tendonitis, septic joint, cellulitis. cp 14:15 Data reviewed: vital signs, nurses notes, radiologic studies, plain films, ultrasound, cp and as a result, I will discharge patient. 14:15 Test interpretation: by ED physician or midlevel provider: plain radiologic studies. cp Counseling: I had a detailed discussion with the patient and/or guardian regarding: the historical points, exam findings, and any diagnostic results supporting the discharge/admit diagnosis, radiology results, to return to the emergency department if symptoms worsen or persist or if there are any questions or concerns that arise at home. 14:17 Response to treatment: the patient's symptoms have markedly improved after treatment, cp and as a result, I will discharge patient. 08/23 12:26 Order name: US Extremity Venous Unilateral Ltd; Complete Time: 14:10 cp 08/23 14:10 Interpretation: Report reviewed. cp 08/23 12:26 Order name: XRAY Knee RIGHT 3 view; Complete Time: 14:10 cp 08/23 14:11 Interpretation: Report reviewed. cp 08/23 14:09 Order name: Suman wrap-joint; Complete Time: 14:34 cp Administered Medications: 12:31 Drug: Ibuprofen 800 mg Route: PO; jt3 12:31 Drug: Tylenol 1000 mg Route: PO; jt3 Disposition Summary: 08/23/21 14:18 Discharge Ordered Location: Home cp Problem: new cp Symptoms: have improved cp Condition: Stable cp Diagnosis - Pain in right knee cp Followup: cp - With: Private Physician - When: 5 - 6 days - Reason: Recheck today's complaints Discharge Instructions: - Discharge Summary Sheet cp - Elastic Bandage and RICE Therapy cp - Acute Knee Pain, Adult cp Forms: - Medication Reconciliation Form cp - Thank You Letter cp - Antibiotic Education cp - Prescription Opioid Use cp - Work release form eb Prescriptions: - Naprosyn 500 mg Oral Tablet - take 1 tablet by ORAL route 2 times per day take with food; 20 tablet; Refills: cp 0, Product Selection Permitted Addendum: 09/01/2021 22:53 Co-signature as Attending Physician, Jessica Martines MD. m a2 Signatures: Dispatcher [employer] Karlee Loya RN RN aa5 Eddie Alonzo PA PA cp Jessica Martines MD MD ma2 Guero Suggs RN RN jt3 Corrections: (The following items were deleted from the chart) 08/23 14:34 14:09 Crutches ordered. cp ch5 08/24 07:41 08/23 12:40 Musculoskeletal/extremity: Extremities: grossly normal except: noted in the cp right knee: pain, swelling, tenderness, ROM: limited passive range of motion due to pain, in the right knee, cp
[2021-08-23 14:43] VITALS: BP 128/78; TEMP 98; O2SAT 99
== END 2021-08-23 14:34 | disposition home or self-care (01) ==
LOC: ER 11:54
DX: M25.561 Pain in right knee (principal); Z88.1 Allergy status to other antibiotic agents; Z88.0 Allergy status to penicillin; Z91.040 Latex allergy status
CPT/HCPCS: 93971; 99283

== ENCOUNTER 2021-09-08 17:24 | Emergency (ER) | payer SELFPAY ==
[2021-09-08] MEDS ORDERED: NA CHLORIDE 0.9% 1,000 ML ONE (17:35)
[2021-09-08] MEDS ORDERED: PANTOPRAZOLE 40 MG INJ ONE (17:35)
[2021-09-08 18:07] LABS: Absolute Lymphocytes (CBC) 2.2 K/uL (0.7-4.9); Basophils % 0.4 % (0-1.3); Lymphocytes % 24.7 % (15.3-44.8); MPV 7.8 fL (7.6-11.3); RBC Red Blood Cell Count 4.75 M/uL (3.86-4.86)
[2021-09-08 18:14] LABS: ALT/SGPT 34 U/L (12-78); AST/SGOT 18 U/L (15-37); Albumin 3.8 g/dL (3.4-5.0); Alkaline Phosphatase 53 U/L (45-117); BUN Blood Urea Nitrogen 18 mg/dL (7-18); Bicarbonate 27 mmol/L (21-32); Bilirubin Direct < 0.1 mg/dL (0-0.2); Bilirubin Total 0.2 mg/dL (0.2-1.0); Glucose Level 89 mg/dL (74-106); Lipase 70 U/L (73-393); Potassium 4.1 mmol/L (3.5-5.1); Protein, Total 7.8 g/dL (6.4-8.2); Sodium Level 139 mmol/L (136-145)
[2021-09-08] MEDS ORDERED: KETOROLAC 30 MG/ML INJ ONE (18:19)
[2021-09-08] MEDS ORDERED: LIDOCAINE VISCOUS 2% SOLN 15 ML UDC ONE (18:58)
[2021-09-08] MEDS ORDERED: MAGNES/ALUMIN/SIMET 30ML UCUP ONE (18:58)
[2021-09-08] MEDS ORDERED: ONDANSETRON 4 MG/2 ML VIAL ONE (19:18)
--- NOTE | 2021-09-08 20:24 | RAD REPORT ---
EXAM DESCRIPTION: CTAbdomen Pelvis W Contrast - 09/08/2021 8:01 pm CLINICAL HISTORY: Abdominal pain. ABD PAIN COMPARISON: No comparisons TECHNIQUE: Biphasic CT imaging of the abdomen and pelvis was performed with 100 ml non-ionic IV cont rast. All CT scans are performed using dose optimization technique as appropriate and may include automated exposure control or mA/KV adjustment according to patient size. FINDINGS: The lung bases are clear.Small hiatal hernia. The liver, spleen, pancreas, adrenal glands and kidneys are within normal limits. Punctate left nephr olithiasis without hydronephrosis. No bowel obstruction, free air, free fluid or abscess. The appendix is normal. No evidence of signi ficant lymphadenopathy. No suspicious bony findings. IMPRESSION: No acute intra-abdominal or pelvic finding. Small hiatal hernia. Punctate left nephrolithiasis without hydronephrosis.
--- NOTE | 2021-09-08 20:27 | EDPHYS ---
Physician Documentation [facility] Name: Genesis Hu Age: 31 yrs Sex: Female : 1990 Arrival Date: 09/08/2021 Time: 17:25 Bed 23 Private MD: ED Physician James Naqvi HPI: 09/08 19:47 This 31 yrs old Female presents to ER via Ambulatory with complaints of kb indigestion. 19:47 The patient presents with abdominal pain in the epigastric area. Onset: The kb symptoms/episode began/occurred 1 month(s) ago. The symptoms do not radiate. Associated signs and symptoms: Pertinent positives: nausea and vomiting. The symptoms are described as burning, constant. Modifying factors: The symptoms are alleviated by nothing, the symptoms are aggravated by drinking, food. Severity of pain: At its worst the pain was moderate in the emergency department the pain is unchanged. The patient has not experienced similar symptoms in the past. The patient has not recently seen a physician. Pt states she has had a burning pain in upper abd for a month. States the pain radiates up her throat after eating or drinking. . 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 - Social history:: Smoking status: Patient denies any tobacco usage or history of. ROS: 19:15 Constitutional: Negative for fever, chills, and weight loss. kb 19:15 Abdomen/GI: Positive for abdominal pain, nausea and vomiting, Negative for diarrhea, constipation. 19:15 All other systems are negative. Exam: 19:15 Constitutional: This is a well developed, well nourished patient who is awake, alert, kb and in no acute distress. Head/Face: Normocephalic, atraumatic. ENT: Moist Mucous membranes Cardiovascular: Regular rate and rhythm with a normal S1 and S2. No gallops, murmurs, or rubs. No pulse deficits. Respiratory: Respirations even and unlabored. No increased work of breathing, no retractions or nasal flaring. Abdomen/GI: Soft, non-tender. No distention Skin: Warm, dry with normal turgor. Normal color. MS/ Extremity: Pulses equal, no cyanosis. Neurovascular intact. Full, normal range of motion. Neuro: Awake and alert, GCS 15, oriented to person, place, time, and situation. Moves all extremities. Normal gait. Psych: Awake, alert, with orientation to person, place and time. Behavior, mood, and affect are within normal limits. Vital Signs: 17:28 BP 146 / 80; Pulse 89; Resp 17; Temp 97.8(TE); Pulse Ox 99% on R/A; tw2 17:44 BP 122 / 80; Pulse 78; Resp 18; Pulse Ox 100% on R/A; ld1 18:29 BP 117 / 76; Pulse 72; Resp 18; Pulse Ox 100% on R/A; Pain 6/10; ld1 19:38 BP 122 / 74; Pulse 69; Resp 18; Pulse Ox 100% on R/A; ld1 MDM: 17:29 Patient medically screened. kb 19:15 Data reviewed: vital signs, nurses notes. Data interpreted: Pulse oximetry: on room air kb is 100 %. Interpretation: normal. 20:26 Counseling: I had a detailed discussion with the patient and/or guardian regarding: the kb historical points, exam findings, and any diagnostic results supporting the discharge/admit diagnosis, lab results, radiology results, the need for outpatient follow up, a binding dyer, to return to the emergency department if symptoms worsen or persist or if there are any questions or concerns that arise at home. 09/08 17:33 Order name: Basic Metabolic Panel; Complete Time: 18:19 kb 09/08 17:33 Order name: CBC with Diff; Complete Time: 18:19 kb 09/08 17:33 Order name: Hepatic Function; Complete Time: 18:19 kb 09/08 17:33 Order name: Lipase; Complete Time: 18:19 kb 09/08 17:33 Order name: CT Abd/Pelvis - IV Contrast Only; Complete Time: 20:25 kb 09/08 17:33 Order name: IV Saline Lock; Complete Time: 17:44 kb 09/08 17:33 Order name: Labs collected and sent; Complete Time: 17:44 kb Administered Medications: 17:44 Drug: NS 0.9% 1000 ml Route: IV; Rate: 1000 ml; Site: right antecubital; ld1 18:30 Follow up: Response: No adverse reaction; IV Status: Completed infusion; IV Intake: ld1 1000ml 17:44 Drug: ProTONIX (pantoprazole) 40 mg Route: IVP; Site: right antecubital; ld1 18:30 Follow up: Response: No adverse reaction ld1 18:21 Drug: Ketorolac 15 mg Route: IVP; Site: right antecubital; ld1 18:30 Follow up: Response: No adverse reaction ld1 19:13 Drug: GI Cocktail without - (Maalox Suspension 30 ml, Lidocaine Liquid 2 % 15 ld1 ml) Route: PO; 19:20 Follow up: Response: No adverse reaction ld1 19:20 Drug: Zofran (Ondansetron) 4 mg Route: IVP; Site: right antecubital; ld1 19:20 Follow up: Response: No adverse reaction ld1 Disposition: 09/09 09:10 Co-signature as Attending Physician, James Naqvi MD I agree with the assessment and sp3 plan of care. Disposition Summary: 09/08/21 20:26 Discharge Ordered Location: Home kb Condition: Stable kb Diagnosis - Upper abdominal pain, unspecified kb Followup: kb - With: Emergency Department - When: As needed - Reason: Worsening of condition Followup: kb - With: Private Physician - When: 2 - 3 days - Reason: Recheck today's complaints, Continuance of care, Re-evaluation by your physician Discharge Instructions: - Discharge Summary Sheet kb - Gastroesophageal Reflux Disease, Adult kb Forms: - Medication Reconciliation Form kb - Thank You Letter kb - Antibiotic Education kb - Prescription Opioid Use kb Prescriptions: - Protonix 40 mg Oral Tablet - take 1 tablet by ORAL route once daily; 30 tablet; Refills: 0, Product kb Selection Permitted - Zofran 4 mg Oral Tablet - take 1 tablet by ORAL route every 6 hours As needed; 20 tablet; Refills: 0, kb Product Selection Permitted Signatures: Dispatcher [employer] Charity Frazier, SHAJI-C SHAJI-Harleen Garvin RN RN tw2 Tony Alcaraz mw2 Alia Chang RN RN ld1 James Naqvi MD MD sp3
--- NOTE | 2021-09-08 20:27 | ER ---
Nurse's Notes [facility] Name: Genesis Hu Age: 31 yrs Sex: Female : 1990 Arrival Date: 09/08/2021 Time: 17:25 Bed 23 Private MD: Diagnosis: Upper abdominal pain, unspecified Presentation: 09/08 17:28 Chief complaint: Patient states: i throw up nothing but stomach acid. 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 it hurts when i take a deep breath. i feel a burning in my stomach first and then it travels up and it gets hard to breathe. i havent been able to eat. it has been going on a month. Chief complaint:. Coronavirus screen: At this time, the client does not indicate any symptoms associated with coronavirus-19. Ebola Screen: Patient denies travel to an Ebola-affected area in the 21 days before illness onset. Initial Sepsis Screen: Does the patient meet any 2 criteria? No. Patient's initial sepsis screen is negative. Does the patient have a suspected source of infection? No. Patient's initial sepsis screen is negative. Risk Assessment: Do you want to hurt yourself or someone else? Patient reports no desire to harm self or others. Note provider in triage room performing assessment at this time. Onset of symptoms was September 08, 2021. 17:28 Method Of Arrival: Ambulatory tw2 17:28 Acuity: KRISTIN 3 tw2 Triage Assessment: 17:31 General: Appears in no apparent distress. Behavior is calm, cooperative, appropriate tw2 for age. Pain:. GI: Reports epigastric pain, indigestion. 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 - Social history:: Smoking status: Patient denies any tobacco usage or history of. Screenin:44 Abuse screen: Denies threats or abuse. Denies injuries from another. Nutritional ld1 screening: No deficits noted. Tuberculosis screening: No symptoms or risk factors identified. Fall Risk None identified. Assessment: 17:44 General: Appears in no apparent distress. comfortable. Pain: Denies pain. Neuro: Level ld1 of Consciousness is awake, alert, obeys commands, Oriented to person, place, time, situation, Appropriate for age. Cardiovascular: Capillary refill < 3 seconds Patient's skin is warm and dry. Respiratory: Airway is patent Respiratory effort is even, unlabored, Respiratory pattern is regular, symmetrical. GI: Abdomen is round non-distended, Reports nausea, vomiting. : No signs and/or symptoms were reported regarding the genitourinary system. EENT: No signs and/or symptoms were reported regarding the EENT system. Derm: No signs and/or symptoms reported regarding the dermatologic system. Musculoskeletal: No signs and/or symptoms reported regarding the musculoskeletal system. 18:29 Reassessment: Pt c/o lower stomach being sore, notified ERP. See MAR for orders. ld1 19:38 Reassessment: Patient appears in no apparent distress at this time. No changes from ld1 previously documented assessment. Patient and/or family updated on plan of care and expected duration. Pain level reassessed. Patient is alert, oriented x 3, equal unlabored respirations, skin warm/dry/pink. Vital Signs: 17:28 BP 146 / 80; Pulse 89; Resp 17; Temp 97.8(TE); Pulse Ox 99% on R/A; tw2 17:44 BP 122 / 80; Pulse 78; Resp 18; Pulse Ox 100% on R/A; ld1 18:29 BP 117 / 76; Pulse 72; Resp 18; Pulse Ox 100% on R/A; Pain 6/10; ld1 19:38 BP 122 / 74; Pulse 69; Resp 18; Pulse Ox 100% on R/A; ld1 ED Course: 17:25 Patient arrived in ED. as 17:29 [facility] kb 17:29 James Naqvi MD is Attending Physician. kb 17:31 Triage completed. tw2 17:31 Arm band placed on. tw2 17:33 Alia Chang, RN is Primary Nurse. ld1 17:44 Patient has correct armband on for positive identification. Bed in low position. Call ld1 light in reach. Side rails up X2. Pulse ox on. NIBP on. Door closed. Noise minimized. Warm blanket given. 17:44 No provider procedures requiring assistance completed. Inserted saline lock: 20 gauge ld1 in right antecubital area, using aseptic technique. Blood collected. 20:01 CT Abd/Pelvis - IV Contrast Only In Process Unspecified. EDMS 20:35 IV discontinued, intact, bleeding controlled, No redness/swelling at site. ld1 Administered Medications: 17:44 Drug: NS 0.9% 1000 ml Route: IV; Rate: 1000 ml; Site: right antecubital; ld1 18:30 Follow up: Response: No adverse reaction; IV Status: Completed infusion; IV Intake: ld1 1000ml 17:44 Drug: ProTONIX (pantoprazole) 40 mg Route: IVP; Site: right antecubital; ld1 18:30 Follow up: Response: No adverse reaction ld1 18:21 Drug: Ketorolac 15 mg Route: IVP; Site: right antecubital; ld1 18:30 Follow up: Response: No adverse reaction ld1 19:13 Drug: GI Cocktail without - (Maalox Suspension 30 ml, Lidocaine Liquid 2 % 15 ld1 ml) Route: PO; 19:20 Follow up: Response: No adverse reaction ld1 19:20 Drug: Zofran (Ondansetron) 4 mg Route: IVP; Site: right antecubital; ld1 19:20 Follow up: Response: No adverse reaction ld1 Intake: 18:30 IV: 1000ml; Total: 1000ml. ld1 Outcome: 20:26 Discharge ordered by MD. garcia 20:35 Discharged to home ambulatory. ld1 20:35 Condition: stable 20:35 Discharge instructions given to patient, Instructed on discharge instructions, follow up and referral plans. medication usage, Demonstrated understanding of instructions, follow-up care, medications, Prescriptions given X 2. 20:36 Patient left the ED. ld1 Signatures: Dispatcher [employer] EDMS Charity Bates, TRISTIN GIRARD-Sudha Lu Tara RN RN tw2 Alia Chang RN RN ld1
[2021-09-08 21:26] VITALS: TEMP 97.8
[2021-09-08 21:33] VITALS: O2SAT 100
[2021-09-08 21:39] VITALS: BP 122/74
--- OUTSIDE RECORDS SUMMARY | 2021-09-13 16:41 | XMS REPORT | Continuity of Care Document ---
:1990 Author Organization [facility] t Address [facility] [place] [address] Care Team Providers Name Role Phone Pooja Sweeney Attending Clinician Gaby Brower MD Attending Clinician Gaby BROWER Attending Clinician Unavailable POOJA MEDEIROS Attending Clinician Unavailable Fuad BEAN Attending Clinician FUAD Attending Clinician Unavailable Doctor Unassigned, Name Attending Clinician Unavailable Daniela Valle MD Attending Clinician Problems This patient has no known problems. Allergies, Adverse Reactions, Alerts Allergy Allergy Status Severity Reaction(s) Onset Inactive Treating Comm ents Source Name Type Date Date Clinician AMOXICIL DRUG Active Anaphylaxis Uni vers LAUREN INGREDI 3-11 ity of 00:00: [address] PENICILL DRUG Active Anaphylaxis 2015-11 Uni vers IN INGREDI 2-14 ity of 00:00: [address] BEE DRUG Active Unknown-Cmnt Univ ers POLLEN INGREDI 1-31 ity of 00:00: [address] Medications This patient has no known medications. Procedures This patient has no known procedures. Encounters Start End Encounter Admission Attending Care Care Encounter Source Date/Time Date/Time Type Type Clinicians Facility Department ID 2020-11-25 2020-11-25 Emergency Kyra Medeiros [facility] [id number] 15:24:00 20:37:00 Pooja Lyons [id number] [place] [id number] [place] [id number] 2020-11-25 2020-11-25 Emergency X [facility] ERT [id number] Univers 15:14:00 15:14:00 ity [facility] 2020-10-31 2020-10-31 Emergency Jack Brower [facility] [id number] 09:18:00 12:22:00 Gaby Lyons [id number] [place] [id number] [place] [id number] 2020-10-31 2020-10-31 Emergency X JACK BROWER [facility] ERT [id number] Univers 09:18:00 09:18:00 [facility] 2020-09-11 2020-09-11 Emergency Kyra Medeiros [facility] [id number] 14:32:00 16:08:00 Poojawill Lyons [id number] [place] [id number] [place] [id number] 2020-09-11 2020-09-11 Emergency X Kyra MEDEIROS [facility] ERT [id number] Univers 14:32:00 14:32:00 [facility] 2020-02-03 2020-02-03 Emergency Fuad [facility] [id number] 17:08:08 18:20:00 Anjali Serena [id number] [place] [id number] [place] [id number] 2020-02-03 2020-02-03 Emergency X FUAD [facility] ERT [id number] Univers 17:00:00 17:00:00 ANJALI [facility] 2020-02-03 2020-02-03 Orders Doctor DAVID [id number] 00:00:00 00:00:00 Only Unassigned, ANGIE [id number] [place] [id number] 2020-01-10 2020-01-11 Emergency [facility] [id number] 23:46:02 01:01:00 Serena [id number] [place] [id number] [place] [id number] 2020-01-10 2020-01-10 Emergency X [facility] ERT [id number] Univers 23:02:00 23:02:00 ity [facility] 2019-12-18 2019-12-18 Emergency X Kyra MEDEIROS [facility] ERT [id number] Univers 17:24:37 18:57:00 ity [facility] 2019-12-18 2019-12-18 Emergency Kyra Medeiros [facility] [id number] 17:24:37 18:57:00 Pooja Lyons [id number] [place] [id number] [place] [id number] 2019-12-18 2019-12-18 Orders Doctor DAVID [id number] 00:00:00 00:00:00 Only Unassigned, ANGIE [id number] Briar [place] [id number] 2019-06-29 2019-06-29 Emergency [facility] [id number] 02:13:29 04:06:00 Jose David [place] [id number] [place] [id number] [place] [id number] Results This patient has no known results.
== END 2021-09-08 20:36 | disposition home or self-care (01) ==
LOC: ER 17:24
DX: R10.13 Epigastric pain (principal); Z88.1 Allergy status to other antibiotic agents; Z91.040 Latex allergy status; Z91.048 Other nonmedicinal substance allergy status
CPT/HCPCS: 36415; 74177; 80048; 80076; 83690; 85025; 96361; 96374; 96375; 99284; C9113; J2405; J7030; Q9967

== ENCOUNTER 2021-10-27 14:36 | Emergency (ER) | payer SELFPAY ==
--- OUTSIDE RECORDS SUMMARY | 2021-10-27 14:38 | XMS REPORT | Continuity of Care Document ---
:1990 Author Organization [facility] t Address Formerly [facility], [facility] [address] [place] [address] Care Team Providers Name Role Phone PCP, DOES NOT HAVE A Primary Care Physician Unavailable Milton WINSTON Attending Clinician Unavailable Milton Winston DO Attending Clinician Attending Clinician Unavailable Singer ROJAS Attending Clinician Pooja Sweeney Attending Clinician Gaby Brower MD Attending Clinician Gaby BROWER Attending Clinician Unavailable POOJA MEDEIROS Attending Clinician Unavailable Fuad BEAN Attending Clinician FUAD Attending Clinician Unavailable Doctor Unassigned, Name Attending Clinician Unavailable Daniela Valle MD Attending Clinician Payers Payer Name Policy Type Policy Number Effective Date Expiration Date S hanane MEDICAID PENDING PENDING 2021 00:00:00 Problems Condition Condition Condition Status Onset Resolution Last Treating Co mments Source Name Details Category Date Date Treatment Clinician Date Abdominal Abdominal Disease Active Overview: Univers pain pain 9-27 Formattin ity of 00:00: g of this [place] note Medical might be Branch different from the original. 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 1 hr- 47 Immune to Immune to Disease Active Uni vers varicella varicella 07-05 ity of 00:00: [place] 00 Medical Branch High-risk High-risk Disease Active Overview: Univers 06-30 Formattin i ty of 00:00: g of this [place] note Medical might be Branch different from the original. Medical records received. [facility]. DOS- 0. CC: 30 weeks w/ twins, vomiting black liquid. No evidence of hepatitis , pancreati tis, or liver dysfuncti on. Physiolog ic anemia. No UTI or ketonuria . 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 Medical records- 0- IUP at 33 weeks. Dichorion ic, diamnioti c twin gestation . presentat ion Vertex and transvers e. PTL. Primary low transvers e via Pfannenst iel incision. Right dermoid cystectom y. Bipolar Bipolar Disease Active Univers disorder disorder 06-30 ity of 00:00: [place] 00 Medical Branch Family Family Disease Active Overview: Univer s history of history of 06-30 Formattin ity of congenital congenital 00:00: g of this [place] anomalies anomalies 00 note Medi denzel might be Branch different from the original. Detailed US and Genetics. Mother born with spinal bifida ocarta and hole in the heart and born with heart murmur History of History of Disease Active Overview : Univers 06-30 Formattin ity o f labor labor 00:00: g of this [place] note Medical might be Branch different from the original. Delivered at 28 week via for PTL -Twins. Send to [facility] at 16 weeks Pain Pain Disease Active Univers pelvic pelvic 8-30 ity of 00:00: [place] 00 Medical Branch Rubella Rubella Disease Active Univers immune immune 830 ity of 00:00: [place] 00 Medical Branch Allergies, Adverse Reactions, Alerts Allergy Allergy Status Severity Reaction(s) Onset Inactive Treating Comm ents Source Name Type Date Date Clinician AMOXICIL DRUG Active Anaphylaxis Uni vers DAVY INGREDI 3-11 ity of 00:00: [place] 00 Medical Branch Amoxicil Propensi Active Anaphylaxis 2017 U nivers davy ty to 3-11 ity of adverse 00:00: [place] reaction 00 Medical s Branch PENICILL DRUG Active Anaphylaxis 2015-11 Uni vers IN INGREDI 2-14 ity of 00:00: [place] 00 Medical Branch Penicill Propensi Active Anaphylaxis 2015-11 U nivers in ty to 2-14 ity of adverse 00:00: [place] reaction 00 Medical s Branch BEE DRUG Active Unknown-Cmnt Univ ers POLLEN INGREDI 12-01 ity of 00:00: [place] 00 Medical Branch Bee Propensi Active Unknown - Unive rs Pollen ty to See comments 12-01 ity of adverse 00:00: [place] reaction 00 Medical s Branch Social History Social Habit Start Date Stop Date Quantity Comments Source Exposure to Not sure [facility] SARS-CoV-2 [facility] (event) Branch Alcohol intake 2021-10-13 2021-10-13 Current University of 00:00:00 00:00:00 non-drinker of [facility] alcohol [place] (finding) Tobacco use and 2013-06-30 2013-06-30 Never used Universit y of exposure 00:00:00 00:00:00 [facility] Sex Ass[birth year] Universit y of 00:00:00 00:00:00 [facility] Smoking Status Start Date Stop Date Source Never smoker [facility] Branch Medications Ordered Filled Start Stop Current Ordering Indication Dosage Frequency Signature Comments Components Source Medication Medication Date Date Medication? Clinician (SIG) Name Name pantoprazol 2020-11 Yes [id number] 40mg Take 1 Univers e 2-13 tablet by ity of (PROTONIX) 00:00: mouth [place] 40 mg EC 00 daily. Medical tablet Branch sucralfate 2020-11- Yes [id number] 1g Take 1 Univers 1 gram 2-13 01-13 tablet by ity of tablet 00:00: 05:59 mouth [place] 00 :00 before Medical meals and Branch at bedtime for 30 days. dicyclomine 2020-11 Yes 10mg 10 mg, Univ ers (BENTYL) 1-23 Oral, QID, ity o f capsule 10 18:00: First dose [place] mg 00 on [facility] 09/23/21 Branch at 1200, Until Discontinu ed, Routine sucralfate 2020-11 Yes 1g 1 g, Oral, U nivers (CARAFATE) 11-23 AC+HS, ity of tablet 1 g 17:30: First dose [place] 00 on [facility] 09/23/21 Branch at 1130, Until Discontinu ed, Routine pantoprazol 2020-11 40mg 40 mg, Uni vers e 11-23 Slow IV ity of (PROTONIX) 15:45: 15:00 Push, [place] injection 00 :00 ONCE, 1 Medical 40 mg dose, On Branch [facility] 09/23/21 at 0945 dicyclomine 2020-11 Yes [id number] 10mg Take 1 Univers (BENTYL) 10 -23 capsule by it y of mg capsule 00:00: mouth [place] 00 every 8 Medical (eight) Branch hours as needed for Abdominal pain. ondansetron 2020-11 Yes [id number] 4mg Take 1 Univers 4 mg 1-23 tablet by ity of disintegrat 00:00: mouth [place] ing tablet 00 every 8 Medica l (eight) Branch hours as needed for Nausea and Vomiting (N/V). sucralfate 2020-11 Yes [id number] 1g Take 1 U nivers 1 gram -23 tablet by ity of tablet 00:00: mouth [place] 00 before Medical meals and Branch at bedtime. dicyclomine 2020-11 Yes [id number] 10mg Take 1 Univers (BENTYL) 10 1-23 capsule by it y of mg capsule 00:00: mouth [place] 00 every 8 Medical (eight) Branch hours as needed for Abdominal pain. ondansetron 2020-11 Yes [id number] 4mg Take 1 Univers 4 mg 1-23 tablet by ity of disintegrat 00:00: mouth [place] ing tablet 00 every 8 Medica l (eight) Branch hours as needed for Nausea and Vomiting (N/V). pantoprazol 2020-11 Yes [id number] 40mg Take 1 Univers e 1-23 tablet by ity of (PROTONIX) 00:00: mouth [place] 40 mg EC 00 daily. Medical tablet Branch sucralfate 2020-11- No [id number] 1g Take 1 Univers 1 gram - 12-13 tablet by ity of tablet 00:00: 00:00 mouth [place] 00 :00 before Medical meals and Branch at bedtime. pantoprazol 2020-11- No [id number] 40mg Take 1 Univers e 1-23 12-13 tablet by ity of (PROTONIX) 00:00: 00:00 mouth [place] 40 mg EC 00 :00 daily. Medical tablet Branch ciprofloxac Yes [id number] 500mg Take 1 Univers in HCl 500 1-25 tablet by ity of mg tablet 00:00: mouth 2 [place] 00 (two) Medical times Branch daily. ciprofloxac 2020- No [id number] 500mg Take 1 Univers in HCl 500 1-25 12-13 tablet by ity of mg tablet 00:00: 00:00 mouth 2 [place] 00 :00 (two) Medical times Branch daily. ondansetron 2020- No [id number] 4mg Take 1 Univers (ZOFRAN 1-25 -23 tablet by ity of ODT) 4 mg 00:00: 00:00 mouth [place] disintegrat 00 :00 every 8 Medic al ing tablet (eight) Branch hours as needed for Nausea and Vomiting (N/V). cyclobenzap 2019-11 Yes [id number] 10mg Take 1 Univers rine 10 mg 1-11 tablet by ity of tablet 00:00: mouth 3 [place] 00 (three) Medical times Branch daily. ibuprofen 2019-11 Yes [id number] 600mg Take 1 Univers 600 mg 1-11 tablet by ity of tablet 00:00: mouth [place] 00 every 6 Medical (six) Branch hours as needed for Pain (scale 4-6). cyclobenzap 2019-11 Yes [id number] 10mg Take 1 Univers rine 10 mg 1-11 tablet by ity of tablet 00:00: mouth 3 [place] 00 (three) Medical times Branch daily. ibuprofen 2019-11- No [id number] 600mg Take 1 Univers 600 mg 1-11 12-13 tablet by ity of tablet 00:00: 00:00 mouth [place] 00 :00 every 6 Medical (six) Branch hours as needed for Pain (scale 4-6). ferrous 2020-0 Yes 1{tbl} Take 1 Univer s sulfate/vit 4-04 tablet by ity of C/folic ac 17:08: mouth [place] (FERROUS 08 daily. Medical SULFATE-C-F Branch OLIC ACID ORAL) ferrous 2020-0 Yes 1{tbl} Take 1 Univer s sulfate/vit 4-04 tablet by ity of C/folic ac 17:08: mouth [place] (FERROUS 08 daily. Medical SULFATE-C-F Branch OLIC ACID ORAL) bromphenira 2020-0 Yes [id number] 5mL Take 5 mL Univers mine-pseudo 4-04 by mouth 4 it y of ephedrine-D 00:00: (four) [place] M (BROMFED 00 times Medical DM) 2-30-10 daily as Bran ch mg/5 mL needed for syrup Congestion /Allergies or Cough. methylPREDN 2020-0 Yes [id number] Take by Univers ISolone 4 4-04 mouth ity of mg tablets 00:00: SEE-INSTRU [place] 00 CTIONS. Medical follow Branch package directions levoFLOXaci 2020-0 Yes [id number] 500mg Take 1 Univers n 4-04 tablet by ity of (LEVAQUIN) 00:00: mouth [place] 500 mg 00 every 24 Medical tablet (twenty-fo Branch ur) hours. bromphenira 2020-0 Yes [id number] 5mL Take 5 mL Univers mine-pseudo 4-04 by mouth 4 it y of ephedrine-D 00:00: (four[place] M (BROMFED 00 times Medical DM) 2-30-10 daily as Bran ch mg/5 mL needed for syrup Congestion /Allergies or Cough. methylPREDN 2020-0 1- No [id number] Take by Univers ISolone 4 4-04 12-13 mouth ity of mg tablets 00:00: 00:00 SEE-INSTRU [place] 00 :00 CTIONS. Medical follow Branch package directions levoFLOXaci 2020-0 2021- No [id number] 500mg Take 1 Univers n 4-04 12-13 tablet by ity of (LEVAQUIN) 00:00: 00:00 mouth [place] 500 mg 00 :00 every 24 Medical tablet (twenty-fo Branch ur) hours. Immunizations Ordered Filled Immunization Date Status Comments Sourc e Immunization Name Name Td 2016-04-30 Completed University of 00:00:00 [facility] Branch Td 2016-04-30 Completed University of 00:00:00 [facility] Branch Rubella 2010-04-22 Completed University of 00:00:00 [facility] Branch Rubella 2010-04-22 Completed University of 00:00:00 [facility] Branch Td 2006-06-30 Completed University of 00:00:00 [facility] Td 2006-06-30 Completed University of 00:00:00 [facility] Vital Signs Vital Name Observation Time Observation Value Comments Source Systolic blood 2021-10-13 13:42:00 123 mm[Hg] Univer sity of pressure [facility] Diastolic blood 2021-10-13 13:42:00 78 mm[Hg] Unive rsity of [facility] Heart rate 2021-10-13 13:42:00 86 /min Universi ty [facility] Body temperature 2021-10-13 13:42:00 36.78 [place] [facility] Respiratory rate 2021-10-13 13:42:00 18 /min [facility] Body weight 2021-10-13 13:42:00 86.183 kg Univers ty [facility] BMI 2021-10-13 13:42:00 29.76 kg/m2 [facility] Oxygen saturation in 2021-10-13 13:42:00 98 /min University of Arterial blood by [facility] Pulse oximetry Branch Systolic blood 2021-09-23 16:00:00 128 mm[Hg] Univer sity of pressure [facility] Branch Diastolic blood 2021-09-23 16:00:00 79 mm[Hg] Unive rsity of pressure [facility] Heart rate 2021-09-23 16:00:00 79 /min Universi ty [facility] Body temperature 2021-09-23 16:00:00 36.72 [place] [facility] Oxygen saturation in 2021-09-23 16:00:00 100 /min University of Arterial blood by [facility] Pulse oximetry Branch Respiratory rate 2021-09-23 14:25:00 18 /min Univ ersity [facility] Body height 2021-09-23 14:25:00 170.2 cm [facility] Areai ty [facility] Body weight 2021-09-23 14:25:00 86.183 kg Universi ty [facility] BMI 2021-09-23 14:25:00 29.76 kg/m2 [facility] Procedures Procedure Date / Time Performed Performing Clinician Sour e ASSIGNMENT OF BENEFITS 2021-10-13 13:51:35 Doctor Unassigned, No [facility] CONSENT/REFUSAL FOR 2021-10-13 13:36:21 Doctor Unassigned, No [facility] TREATMENT COMP. METABOLIC PANEL 2021-09-23 15:35:00 [facility] ([id number] LIPASE 2021-09-23 14:59:00 [facility] CBC WITH DIFF 2021-09-23 14:59:00 Mata, [facility] CONSENT/REFUSAL FOR 2021-09-23 14:17:56 Doctor Unassigned, No Un [facility] DIAGNOSIS AND [facility] TREATMENT Encounters Start End Encounter Admission Attending Care Care Encounter Source Date/Time Date/Time Type Type Clinicians Facility Department ID 2021-10-13 2021-10-13 Emergency Boby WINSTON [facility] ERT [id number] Univers 07:44:00 07:58:00 LATHA busby [facility] 2021-10-13 2021-10-13 Sabrina Winston [facility] [id number] Univers 07:44:00 07:58:00 Latha OWENS [id number] qi [facility] [id number] [facility] [id number] [facility] 084 Branch 2021-09-23 2021-09-23 Emergency X SINGER [facility] ERT [id number] Univers 08:30:00 10:37:00 SRIDHAR busby [facility] 2021-09-23 2021-09-23 Sabrina Mata [facility] [id number] Univers 08:30:00 10:37:00 Sridhar OWENS [id number] i ty of [place] 4.2.7.2.686 [facility] [id number] [address] 2020-11-25 2020-11-25 Emergency Kyra Medeiros [facility] [id number] 15:24:00 20:37:00 Pooja Owens [id number] [place] [id number] [place] [id number] 2020-11-25 2020-11-25 Emergency X [facility] ERT [id number] Univers 15:14:00 15:14:00 ity [facility] 2020-10-31 2020-10-31 Emergency Jack Brower [facility] [id number] 09:18:00 12:22:00 Gaby Serena [id number] [place] [id number] [place] [id number] [facility] 2020-10-31 2020-10-31 Emergency X JACK BROWER [facility] ERT [id number] Univers 09:18:00 [facility]18[facility] 2020-[facility]11 2020-09-11 Emergency Kyra Medeiros [facility] [id number] 14:32:00 16:08:00 Pooja Owens [id number] [place] 4.2.7.2.686 [place] [id number] [facility] 2020-09-11 2020-09-11 Emergency X Kyra MEDEIROS [facility] ERT [id number] Univers 14:32:00 14:32:[facility] 2020-02-03 2020-02-03 Emergency Fuad [facility] [id number] 17:08:08 18:20:00 Anjali Serena [id number] [place] 4.2.7.2.686 [place] [id number] 2020-02-03 2020-02-03 Emergency X FUAD [facility] ERT [id number] Univers 17:00:00 17:00:00 ANJALI [facility] 2020-02-03 2020-02-03 Orders Doctor HERNANDEZ [id number] 00:00:00 00:00:00 Only Unassigned, ANGIE [id number] [address]686 [id number] 2020-01-10 2020-01-11 Emergency [facility] [id number] 23:46:02 01:01:00 Serena 350.1.13.10 [place] [id number] [place] [id number] 2020-01-10 2020-01-10 Emergency X [facility] ERT [id number] Univers 23:02:00 23:02:00 ity of [facility] 2019-12-18 2019-12-18 Emergency X Kyra MEDEIROS [facility] ERT [id number] Univers 17:24:37 18:57:00 ity [facility] 2019-12-18 2019-12-18 Emergency Kyra Medeiros [facility] [id number] 17:24:37 18:57:00 Pooja Owens [id number] [place] 4.2.7.2.686 [place] [id number] 2019-12-18 2019-12-18 Orders Doctor DAVID [id number] 00:00:00 00:00:00 Only Unassigned, ANGIE [id number] [address]686 [id number] 2019-06-29 2019-06-29 Emergency [facility] [id number] 02:13:29 04:06:00 Jose David Owens [id number] [place] [id number] [place] [id number] 084 Results Test Description Test Time Test Comments Results Result Comments Source COMP. METABOLIC PANEL (99047) 2021-09-23 16:10:10 Test Item Value Reference Range Interpretation Comme nts NA (test code = 3132895365) 135 mmol/L 135-145 K (test code = 2043535998) 4.5 mmol/L 3.5-5.0 CL (test code = 8064942482) 101 mmol/L 98-108 CO2 TOTAL (test code = 28 mmol/L - 3584362881) AGAP (test code = 9643539921) 2-16 BUN (test code = 5800689247) 19 mg/dL 7-23 GLUCOSE (test code = 4427504165) 94 mg/dL 70-110 CREATININE (test code = 0.83 mg/dL 0.50-1.04 5903145796) TOTAL BILI (test code = 0.5 mg/dL 0.1-1.2 6200931251) CALCIUM (test code = 8829282592) 9.9 mg/dL 8.6-10.6 T PROTEIN (test code = 7.6 g/dL 6.3-8.2 6821476531) ALBUMIN (test code = 9884999803) 4.5 g/dL 3.5-5.0 ALK PHOS (test code = 9516617156) 52 U/L 34-122 ALTv (test code = 1742-6) 15 U/L 5-35 AST(SGOT) (test code = 21 U/L 13-40 1778252566) eGFR (test code = 4124605126) mL/min/1.73m2 JASMYN (test code = JASMYN) Association of Glomerular Filtration Rate (GFR) and Staging of Kidney Disease* + +--------- + ----+| GFR (mL/min/1.73 m2) ?| With Kidney Damage ?| ?Without Kidney Damage+ +--- + +| ?>90 ?| ?Stage one ?| ? Normal ?+ +-------- + -----+| ?60-89 ?| ?Stage two ?| ? Decreased GFR ? + +--------- + ----+| ?30-59 ?| ?Stage three ?| ? Stage three ? + +--------- + ----+| ?15-29 ?| ?Stage four ? | ? Stage four ?+ +-------- + -----+| ?<15 (or dialysis) ? ?| ?Stage five ? | ? Stage five ?+ +-------- + -----+ *Each stage assumes the associated GFR level has been in effect for at least three months. ?Stages 1 to 5, with or without kidney disease, indicate chronic kidney disease. Notes: Determination of stages one and two (with eGFR >59mL/min/1.73 m2) requires estimation of kidney damage for at least three months as defined by structural or functional abnormalities of the kidney, manifested by either:Pathological abnormalities or Markers of kidney damage (including abnormalities in the composition of the blood or urine or abnormalities in imaging tests). [facility]52[facility]35 Test Item Value Reference Range Interpretation Comments LIPASE (test code = 6515733598) 72 U/L 0-220 Lab Interpretation (test code = Normal 73075-1) [facility] [id number] 15:37:27 Test Item Value Reference Range Interpretation Comments WBC (test code = See_Comment [Automated 4490-2) message] The sy stem which generated this result transmitted reference range : 4.30 - 11.10 10*3/?L. The reference range was not used to interpret this result as normal/abnormal . RBC (test code = See_Comment [Automated 789-8) message] The sy stem which generated this result transmitted reference range : 3.93 - 5.25 10*6/?L. The reference range was not used to interpret this result as normal/abnormal . HGB (test code = 13.2 g/dL 11.6-15.0 718-7) HCT (test code = 42.5 % 35.7-45.2 4544-3) MCV (test code = 85.3 fL 80.6-95.5 787-2) MCH (test code = 26.5 pg 25.9-32.8 785-6) MCHC (test code = 31.1 g/dL 31.6-35.1 L 786-4) RDW-SD (test code = 43.4 fL 39.0-49.9 64338-1) RDW-CV (test code = 14.0 % 12.0-15.5 788-0) PLT (test code = See_Comment H [Automated 777-3) message] The sy stem which generated this result transmitted reference range : 166 - 358 10*3/ ?L. The reference r juliano was not used to interpret this result as normal/abnormal . MPV (test code = 10.4 fL 9.5-12.9 63817-4) NRBC/100 WBC (test See_Comment [Automat ed code = 1929837744) message] The system which generated this result transmitted reference range : 0.0 - 10.0 /100 WBCs. The refer ence range was not u sed to interpret th is result as normal/abnormal . NRBC x10^3 (test code <0.01 See_Comment [Auto mated = 9008413277) message] The s ystem which generated this result transmitted reference range : 10*3/?L. The reference range was not used to interpret this result as normal/abnormal . GRAN MAT (NEUT) % 60.5 % (test code = 770-8) IMM GRAN % (test code 0.30 % = 7283205123) LYMPH % (test code = 28.4 % 736-9) MONO % (test code = 6.4 % 5905-5) EOS % (test code = 3.6 % 713-8) BASO % (test code = 0.8 % 706-2) GRAN MAT x10^3(ANC) 3.71 10*3/uL 1.88-7.09 (test code = 2658504175) IMM GRAN x10^3 (test <0.03 0.00-0.06 code = 7528188325) LYMPH x10^3 (test code 1.74 10*3/uL 1.32-3.29 = 731-0) MONO x10^3 (test code 0.39 10*3/uL 0.33-0.92 = 742-7) EOS x10^3 (test code = 0.22 10*3/uL 0.03-0.39 711-2) BASO x10^3 (test code 0.05 10*3/uL 0.01-0.07 = 704-7) Lab Interpretation Abnormal (test code = 88905-6) [facility]"
[2021-10-27 16:38] LABS: SARS-COV-2 RT PCR NEGATIVE (NEGATIVE)
--- NOTE | 2021-10-27 19:00 | EDPHYS ---
Physician Documentation [facility] Name: Genesis Hu Age: 31 yrs Sex: Female : 1990 Arrival Date: 10/27/2021 Time: 14:38 Bed DIS1 Private MD: ÁNGEL Physician Eddie Danielle HPI: 10/27 18:51 This 31 yrs old Female presents to ER via Ambulatory with complaints of sarah Wheezing-Cough. 18:51 The patient has shortness of breath with light activity. Onset: The symptoms/episode sarah began/occurred 2 day(s) ago. Duration: The symptoms are continuous, and are steadily getting worse. The patient's shortness of breath has no apparent modifying factors. The patient or guardian reports airway noise, cough, difficulty breathing, flu symptoms, arthralgias, low-grade fever. Modifying factors: The symptoms are alleviated by nothing. the symptoms are aggravated by nothing. Associated signs and symptoms: The patient has no apparent associated signs or symptoms. Severity of symptoms: At their worst the symptoms were moderate. 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 - Social history:: Smoking status: Patient denies any tobacco usage or history of. - Family history:: not pertinent. ROS: 18:51 Constitutional: Negative for fever, chills, and weight loss, Eyes: Negative for injury, sarah pain, redness, and discharge, ENT: Negative for injury, pain, and discharge, Neck: Negative for injury, pain, and swelling, Cardiovascular: Negative for chest pain, palpitations, and edema, Abdomen/GI: Negative for abdominal pain, nausea, vomiting, diarrhea, and constipation, Back: Negative for injury and pain, : Negative for injury, bleeding, discharge, and swelling, MS/Extremity: Negative for injury and deformity, Skin: Negative for injury, rash, and discoloration, Neuro: Negative for headache, weakness, numbness, tingling, and seizure, Psych: Negative for depression, anxiety, suicide ideation, homicidal ideation, and hallucinations, Allergy/Immunology: Negative for hives, rash, and allergies, Endocrine: Negative for neck swelling, polydipsia, polyuria, polyphagia, and marked weight changes, Hematologic/Lymphatic: Negative for swollen nodes, abnormal bleeding, and unusual bruising. 18:51 Respiratory: Positive for cough, with clear sputum. Exam: 18:51 Constitutional: This is a well developed, well nourished patient who is awake, alert, sarah and in no acute distress. Head/Face: Normocephalic, atraumatic. Eyes: Pupils equal round and reactive to light, extra-ocular motions intact. Lids and lashes normal. Conjunctiva and sclera are non-icteric and not injected. Cornea within normal limits. Periorbital areas with no swelling, redness, or edema. ENT: Nares patent. No nasal discharge, no septal abnormalities noted. Tympanic membranes are normal and external auditory canals are clear. Oropharynx with no redness, swelling, or masses, exudates, or evidence of obstruction, uvula midline. Mucous membranes moist. Neck: Trachea midline, no thyromegaly or masses palpated, and no cervical lymphadenopathy. Supple, full range of motion without nuchal rigidity, or vertebral point tenderness. No Meningismus. Chest/axilla: Normal chest wall appearance and motion. Nontender with no deformity. No lesions are appreciated. Cardiovascular: Regular rate and rhythm with a normal S1 and S2. No gallops, murmurs, or rubs. Normal PMI, no JVD. No pulse deficits. Respiratory: Lungs have equal breath sounds bilaterally, clear to auscultation and percussion. No rales, rhonchi or wheezes noted. No increased work of breathing, no retractions or nasal flaring. Abdomen/GI: Soft, non-tender, with normal bowel sounds. No distension or tympany. No guarding or rebound. No evidence of tenderness throughout. Back: No spinal tenderness. No costovertebral tenderness. Full range of motion. Skin: Warm, dry with normal turgor. Normal color with no rashes, no lesions, and no evidence of cellulitis. MS/ Extremity: Pulses equal, no cyanosis. Neurovascular intact. Full, normal range of motion. Neuro: Awake and alert, GCS 15, oriented to person, place, time, and situation. Cranial nerves II-XII grossly intact. Motor strength 5/5 in all extremities. Sensory grossly intact. Cerebellar exam normal. Normal gait. 18:51 Musculoskeletal/extremity: DVT Exam: No signs of deep vein thrombosis. no pain, no swelling, no tenderness, negative Homans' sign noted on exam, no appreciated bluish discoloration, no erythema, no increased warmth. Vital Signs: 15:04 BP 149 / 83; Pulse 112; Resp 18; Temp 98.6(O); Pulse Ox 100% on R/A; Weight 83.91 kg; ap3 Height 5 ft. 5 in. (165.10 cm); 15:04 Body Mass Index 30.79 (83.91 kg, 165.10 cm) ap3 MDM: 18:35 Patient medically screened. [facility] 18:56 Differential diagnosis: Anemia bronchitis, flu, URI. Antibiotic administration: The [facility] patient is discharged and will get outpatient antibiotics, Zithromax. The patient's Wells Deep Vein Thrombosis Score was calculated as follows: Total Score: 0-2 Pts- Low Risk. Differential Diagnosis: Bronchitis Influenza Upper Respiratory Infection Sinusitis Pharyngitis Asthma Exacerbation Viral Syndrome Pneumonia. The patient's pulmonary embolism risk score was calculated as follows: Total Score: 0-2 points. This patient was found to be at low risk for a pulmonary embolism by using the Well's assessment criteria. Immunization status:. Data reviewed: vital signs, nurses notes, lab test result(s), Flu:. Data interpreted: lunchroom monitor: rate is 112 beats/min, rhythm is regular, Pulse oximetry: on room air is 100 %. Counseling: I had a detailed discussion with the patient and/or guardian regarding: the historical points, exam findings, and any diagnostic results supporting the discharge/admit diagnosis, lab results, radiology results, the need for outpatient follow up, for definitive care, a family practitioner. 10/27 15:43 Order name: COVID-19/FLU A+B (Document "Date of Onset" if Symptomatic); Complete Time: ll1 16:39 Administered Medications: 19:17 Drug: predniSONE 60 mg Route: PO; jh5 19:17 Drug: Albuterol HFA Inhaler 4 puffs Route: Inhalation; 5 19:18 Drug: Zithromax (azithromycin) 500 mg Route: PO; [facility] Disposition Summary: 10/27/21 18:59 Discharge Ordered Location: Home [facility] Problem: new sarah Symptoms: have improved sarah Condition: Stable sarah Diagnosis - Bronchitis, not specified as acute or chronic sarah - Acute upper respiratory infection, unspecified sarah - Cough sarah Followup: sarah - With: Private Physician - When: 2 - 3 days - Reason: Recheck today's complaints, Continuance of care, Re-evaluation by your physician Followup: sarah - With: Rodríguez Naqvi, - When: 2 - 3 days - Reason: Recheck today's complaints, Continuance of care, Re-evaluation by your physician Discharge Instructions: - Discharge Summary Sheet sarah - Acute Bronchitis, Adult sarah - Upper Respiratory Infection, Adult sarah - Viral Respiratory Infection sarah - Cool Mist Vaporizer sarah - Acute Bronchitis, Adult, [id number]-[id number] sarah - Upper Respiratory Infection, Adult, Sltp-ll-Ales sarah - Cough, Adult, Kwet-oy-Mmij sarah - Cough, Adult [facility] Forms: - Medication Reconciliation Form [facility] - Thank You Letter [facility] - Antibiotic Education [facility] - Prescription Opioid Use [facility] Prescriptions: - albuterol sulfate 90 mcg/actuation Inhalation HFA aerosol inhaler - inhale 2 puff by INHALATION route every 4-6 hours; 1 Pump; Refills: 0, Product sarah Selection Permitted - Zithromax Z-Frederick 250 mg Oral Tablet - take 1 tablet by ORAL route as directed for 5 days Day 1 - take two (2) tablets [facility] one time. Day 2, 3, 4 , 5 take one (1) tablet once daily.; 6 tablet; Refills: 0, Product Selection Permitted - Medrol (Frederick) 4 mg Oral Tablets, Dose Pack - take 1 tablet by ORAL route as directed - follow package instructions; 1 sarah packet; Refills: 0, Product Selection Permitted Signatures: Dispatcher [employer] Charity Frazier, TRISTIN GIRARD-Eddie Larios MD MD cha Prokisch, Amanda RN RN ap3 Valentina Lomax RN RN jh5
--- NOTE | 2021-10-27 19:00 | ER ---
Nurse's Notes [facility] Name: Genesis Hu Age: 31 yrs Sex: Female : 1990 Arrival Date: 10/27/2021 Time: 14:38 Bed DIS1 Private MD: Diagnosis: Bronchitis, not specified as acute or chronic;Acute upper respiratory infection, unspecified;Cough Presentation: 10/27 15:04 Chief complaint: Patient states: she has had a cough, congestion, and body aches since ap3 10/26/2021. Coronavirus screen: chills, congestion, cough unrelated to allergies, fatigue, fever, headache, runny nose, Client presents with at least one sign or symptom that may indicate coronavirus-19. Standard/surgical mask placed on the client. Provider contacted for isolation considerations. Ebola Screen: No symptoms or risks identified at this time. Initial Sepsis Screen: Does the patient meet any 2 criteria? No. Patient's initial sepsis screen is negative. Does the patient have a suspected source of infection? No. Patient's initial sepsis screen is negative. Risk Assessment: Do you want to hurt yourself or someone else? Patient reports no desire to harm self or others. Onset of symptoms was October 26, 2021. 15:04 Method Of Arrival: Ambulatory ap3 15:04 Acuity: KRISTIN 4 ap3 Triage Assessment: 15:07 General: Appears in no apparent distress. Behavior is calm, cooperative. Pain: ap3 Complains of pain in generalzied aches and pains. Neuro: Level of Consciousness is awake, alert, obeys commands, Oriented to person, place, time, situation, Appropriate for age. Cardiovascular: Patient's skin is warm and dry. Respiratory: Airway is patent Parent/caregiver reports the patient having shortness of breath cough that is. 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 - Social history:: Smoking status: Patient denies any tobacco usage or history of. - Family history:: not pertinent. Screenin:07 Abuse screen: Denies threats or abuse. Nutritional screening: No deficits noted. ap3 Tuberculosis screening: No symptoms or risk factors identified. Vital Signs: 15:04 BP 149 / 83; Pulse 112; Resp 18; Temp 98.6(O); Pulse Ox 100% on R/A; Weight 83.91 kg; ap3 Height 5 ft. 5 in. (165.10 cm); 15:04 Body Mass Index 30.79 (83.91 kg, 165.10 cm) ap3 ED Course: 14:38 Patient arrived in ED. ds1 15:06 Triage completed. ap3 15:08 Arm band placed on right wrist. ap3 18:35 Eddie Danielle MD is Attending Physician. [facility] 18:58 Rodríguez Naqvi DO is Referral Physician. [facility] 19:17 Valentina Lomax, IRENE is Primary Nurse. [facility] Administered Medications: 19:17 Drug: predniSONE 60 mg Route: PO; [facility] 19:17 Drug: Albuterol HFA Inhaler 4 puffs Route: Inhalation; [facility] 19:18 Drug: Zithromax (azithromycin) 500 mg Route: PO; [facility] Outcome: 18:59 Discharge ordered by . [facility] 19:18 Patient left the ED. [facility] Signatures: Eddie Danielle MD MD cha Sanford, Demi ds1 Jill Aguila RN RN 3 Valentina Lomax, IRENE BONILLA [facility]
[2021-10-27] MEDS ORDERED: ALBUTEROL INHALER 60 PUFF/8 GM IH ONE (19:13)
[2021-10-27] MEDS ORDERED: AZITHROMYCIN 250 MG TAB ONE (19:13)
[2021-10-27] MEDS ORDERED: predniSONE 20 MG TAB ONE (19:13)
[2021-10-27 19:27] VITALS: BP 149/83; TEMP 98.6; O2SAT 100
== END 2021-10-27 19:18 | disposition home or self-care (01) ==
LOC: ER 14:36
DX: J40 Bronchitis, not specified as acute or chronic (principal); J06.9 Acute upper respiratory infection, unspecified; Z20.822 Contact with and (suspected) exposure to COVID-19; Z88.0 Allergy status to penicillin; Z88.1 Allergy status to other antibiotic agents; Z91.040 Latex allergy status; Z91.048 Other nonmedicinal substance allergy status
CPT/HCPCS: 0240U; 99284; J7512

== ENCOUNTER 2021-11-19 09:44 | Emergency (ER) | payer SELFPAY ==
--- OUTSIDE RECORDS SUMMARY | 2021-11-19 09:47 | XMS REPORT | Continuity of Care Document ---
:1990 Author Organization [facility] t Address [facility] access hospital [address] [place] [address] Care Team Providers Name Role Phone PCP, [...] Formattin ity of 00:00: g of this [place] note Medical might be Branch different from the original. 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 Medical records received. [facility]. DOS- 0. CC: 30 weeks w/ twins, vomiting black liquid. No evidence of hepatitis , pancreati tis, or liver dysfuncti on. Physiolog ic anemia. No UTI or ketonuria . 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 Detailed US and Genetics. Mother born with spinal bifida ocarta and hole in the heart and born with heart murmur History of History of Disease Active Overview : Univers 06-30 Formattin ity o f labor labor 00:00: g of this [place] note Medical might be Branch different from the original. Delivered at 28 week via for PTL -Twins. Send to [facility] at 16 weeks Pain Pain Disease [...] Quantity Comments Source Exposure to Not sure [facility] SARS-CoV-2 [facility] (event) Branch Alcohol intake 2021-10-13 2021-10-13 Current University of 00:00:00 00:00:00 non-drinker of [facility] alcohol [place] (finding) Tobacco use and 2013-06-30 2013-06-30 Never used Universit y of exposure 00:00:00 00:00:00 [facility] Sex Ass[birth year] At [birth year] Universit y of 00:00:00 00:00:00 [facility] Smoking Status Start Date Stop Date Source Never smoker [facility] Branch Medications Ordered Filled Start Stop Current Ordering Indication Dosage Frequency Signature Comments Components Source Medication Medication Date Date Medication? Clinician (SIG) Name Name pantoprazol 2020-11 Yes [id number] 40mg Take 1 Univers e 2-13 tablet by ity of (PROTONIX) 00:00: mouth [place] 40 mg EC 00 daily. Medical tablet Branch sucralfate 2020-11- Yes [id number] 1g Take 1 Univers 1 gram 2-13 01-13 tablet by ity of tablet 00:00: 05:59 mouth [place] 00 :00 before Medical meals and Branch at bedtime for 30 days. dicyclomine 2020-11 Yes 10mg 10 mg, Univ ers (BENTYL) 1-23 Oral, QID, ity o f capsule 10 18:00: First dose [place] 00 on [facility] 09/23/21 Branch at 1200, Until Discontinu ed, Routine sucralfate 2020-11 Yes 1g 1 g, Oral, U nivers (CARAFATE) 11-23 AC+HS, ity of tablet 1 g 17:30: First dose [place] 00 on [facility] 09/23/21 Branch at 1130, Until Discontinu ed, Routine pantoprazol 2020-11 40mg 40 mg, Uni vers e 11-23 Slow IV ity of (PROTONIX) 15:45: 15:00 Push, [place] injection 00 :00 ONCE, 1 Medical 40 mg dose, On Branch [facility] 09/23/21 at 0945 dicyclomine 2020-11 Yes [id number] 10mg Take 1 Univers (BENTYL) 10 -23 capsule by it y of mg capsule 00:00: mouth [place] 00 every 8 Medical (eight) Branch hours as needed for Abdominal pain. ondansetron 2020-11 Yes [id number] 4mg Take 1 Univers 4 mg 1-23 tablet by ity of disintegrat 00:00: mouth [place] ing tablet 00 every 8 Medica l (eight) Branch hours as needed for Nausea and Vomiting (N/V). sucralfate 2020-11 Yes [id number] 1g Take 1 U nivers 1 gram -23 tablet by ity of tablet 00:00: mouth [place] 00 before Medical meals and Branch at bedtime. dicyclomine 2020-11 Yes [id number] 10mg Take 1 Univers (BENTYL) 10 1-23 capsule by it y of mg capsule 00:00: mouth [place] 00 every 8 Medical (eight) Branch hours as needed for Abdominal pain. ondansetron 2020-11 Yes [id number] 4mg Take 1 Univers 4 mg 1-23 tablet by ity of disintegrat 00:00: mouth [place] ing tablet 00 every 8 Medica l (eight) Branch hours as needed for Nausea and Vomiting (N/V). pantoprazol 2020-11 Yes [id number] 40mg Take 1 Univers e 1-23 tablet by ity of (PROTONIX) 00:00: mouth [place] 40 mg EC 00 daily. Medical tablet Branch sucralfate 2020-11- No [id number] 1g Take 1 Univers 1 gram - 12-13 tablet by ity of tablet 00:00: 00:00 mouth [place] 00 :00 before Medical meals and Branch at bedtime. pantoprazol 2020-11- No [id number] 40mg Take 1 Univers e 1-23 12-13 tablet by ity of (PROTONIX) 00:00: 00:00 mouth [place] 40 mg EC 00 :00 daily. Medical tablet Branch ciprofloxac Yes [id number] 500mg Take 1 Univers in HCl 500 1-25 tablet by ity of mg tablet 00:00: mouth 2 [place] 00 (two) Medical times Branch daily. ciprofloxac 2020- No [id number] 500mg Take 1 Univers in HCl 500 1-25 12-13 tablet by ity of mg tablet 00:00: 00:00 [place] :[place] (two) Medical times Branch daily. ondansetron 2020- No [id number] 4mg Take 1 Univers (ZOFRAN 1-25 -23 tablet by ity of ODT) 4 mg 00:00: 00:00 mouth [place] disintegrat 00 :00 every 8 Medic al ing tablet (eight) Branch hours as needed for Nausea and Vomiting (N/V). cyclobenzap 2019-11 Yes [id number] 10mg Take 1 Univers rine 10 mg 1-11 tablet by ity of tablet 00:00: mouth 3 [place] 00 (three) Medical times Branch daily. ibuprofen 2019-11 Yes [id number] 600mg Take 1 Univers 600 mg 1-11 tablet by ity of tablet 00:00: mouth [place] 00 every 6 Medical (six) Branch hours as needed for Pain (scale 4-6). cyclobenzap 2019-11 Yes [id number] 10mg Take 1 Univers rine 10 mg 1-11 tablet by ity of tablet 00:00: mouth 3 [place] 00 (three) Medical times Branch daily. ibuprofen 2019-11- No [id number] 600mg Take 1 Univers 600 mg 1-11 [...] Branch OLIC ACID ORAL) bromphenira 2020-0 Yes [id number] 5mL Take 5 mL Univers mine-pseudo 4-04 by mouth 4 it y of ephedrine-D 00:00: (four[place] (BROMFED 00 times Medical DM) 2-30-10 daily as Bran ch mg/5 mL needed for syrup Congestion /Allergies or Cough. methylPREDN 2020-0 Yes [id number] Take by Univers ISolone 4 4-04 mouth ity of mg tablets 00:00: SEE-INSTRU [place] 00 CTIONS. Medical follow Branch package directions levoFLOXaci 2020-0 Yes [id number] 500mg Take 1 Univers n 4-04 tablet by ity of (LEVAQUIN) 00:00: mouth [place] 500 mg 00 every 24 Medical tablet (twenty-fo Branch ur) hours. bromphenira 2020-0 Yes [id number] 5mL Take 5 mL Univers mine-pseudo 4-04 by mouth 4 it y of ephedrine-D 00:00: (four[place] (BROMFED 00 times Medical DM) 2-30-10 daily as Bran ch mg/5 mL needed for syrup Congestion /Allergies or Cough. methylPREDN 2020-0 1- No [id number] Take by Univers ISolone 4 4-04 12-13 mouth ity of mg tablets 00:00: 00:00 SEE-INSTRU [place] 00 :00 CTIONS. Medical follow Branch package directions levoFLOXaci 2020-0 2021- No [id number] 500mg Take 1 Univers n 4-04 12-13 tablet by ity of (LEVAQUIN) 00:00: 00:00 mouth [place] 500 mg 00 :00 every 24 Medical tablet (twenty-fo Branch ur) hours. Immunizations Ordered Filled Immunization Date Status Comments Sourc e Immunization Name Name Td 2016-04-30 Completed University of 00:00:00 [facility] Branch Td 2016-04-30 Completed University of 00:00:00 [facility] Branch Rubella 2010-04-22 Completed University of 00:00:00 [facility] Branch Rubella 2010-04-22 Completed University of 00:00:00 [facility] Branch Td 2006-06-30 Completed University of 00:00:00 [facility] Td 2006-06-30 Completed University of 00:00:00 [facility] Vital Signs Vital Name Observation Time Observation Value Comments Source Systolic blood 2021-10-13 13:42:00 123 mm[Hg] Univer sity of pressure [facility] Diastolic blood 2021-10-13 13:42:00 78 mm[Hg] Unive rsity of [facility] Heart rate 2021-10-13 13:42:00 86 /min Universi ty [facility] Body temperature 2021-10-13 13:42:00 36.78 [place] [facility] Respiratory rate 2021-10-13 13:42:00 18 /min [facility] Body weight 2021-10-13 13:42:00 86.183 kg Univers ty [facility] BMI 2021-10-13 13:42:00 29.76 kg/m2 [facility] Oxygen saturation in 2021-10-13 13:42:00 98 /min University of Arterial blood by [facility] Pulse oximetry Branch Systolic blood 2021-09-23 16:00:00 128 mm[Hg] Univer sity of pressure [facility] Branch Diastolic blood 2021-09-23 16:00:00 79 mm[Hg] Unive rsity of pressure [facility] Heart rate 2021-09-23 16:00:00 79 /min Universi ty [facility] Body temperature 2021-09-23 16:00:00 36.72 [place] [facility] Oxygen saturation in 2021-09-23 16:00:00 100 /min University of Arterial blood by [facility] Pulse oximetry Branch Respiratory rate 2021-09-23 14:25:00 18 /min Univ ersity [facility] Body height 2021-09-23 14:25:00 170.2 cm [facility] Fallsi ty [facility] Body weight 2021-09-23 14:25:00 86.183 kg Universi ty [facility] BMI 2021-09-23 14:25:00 29.76 kg/m2 [facility] Procedures Procedure Date / Time Performed Performing Clinician Sour e ASSIGNMENT OF BENEFITS 2021-10-13 13:51:35 Doctor Unassigned, No [facility] CONSENT/REFUSAL FOR 2021-10-13 13:36:21 [facility], [facility] TREATMENT COMP. METABOLIC PANEL 2021-09-23 15:35:00 [facility] ([id number] LIPASE 2021-09-23 14:59:00 [facility] CBC WITH DIFF 2021-09-23 14:59:00 Mata, [facility] CONSENT/REFUSAL FOR 2021-09-23 14:17:56 Doctor Unassigned, No [facility] DIAGNOS[facility] AND [facility] TREATMENT Encounters Start End Encounter Admission Attending Care Care Encounter Source Date/Time Date/Time Type Type Clinicians Facility Department ID 2021-10-13 2021-10-13 Emergency Boby WINSTON [facility] ERT [id number] Univers 07:44:00 07:58:00 LATHA busby [facility] 2021-10-13 2021-10-13 Sabrina Winston [facility] [id number] Univers 07:44:00 07:58:00 Latha OWENS [id number] qi [facility] 4.2.7.2.686 [facility] [phone] [facility] 084 Branch 2021-09-23 2021-09-23 Emergency X SINGER [facility] ERT [id number] Univers 08:30:00 10:37:00 SRIDHAR busby [facility] 2021-09-23 2021-09-23 Sabrina Mata [facility] [id number] Univers 08:30:00 10:37:00 Sridhar OWENS [id number] i ty of [place] 4.2.7.2.686 [facility] [id number] [address] 2020-11-25 2020-11-25 Emergency Kyra Medeiros [facility] [id number] 15:24:00 20:37:00 Pooja Owens [id number] [place] 4.2.7.2.686 [place] [id number] 2020-11-25 2020-11-25 Emergency X [facility] ERT [id number] Univers 15:14:00 15:14:00 ity [facility] 2020-10-31 2020-10-31 Emergency Jack Brower [facility] [id number] 09:18:00 12:22:00 Gaby Serena [id number] [place] 4.2.7.2.686 [place] [id number] [facility] 2020-10-31 2020-10-31 Emergency X JACK BROWER [facility] ERT [id number] Univers 09:18:00 09:18[facility] 2020-09-11 2020-09-11 Emergency Kyra Medeiros [facility] [id number] 14:32:00 16:08:00 Pooja Owens [id number] [place] 4.2.7.2.686 [place] [id number] [facility] 2020-09-11 2020-09-11 Emergency X Kyra MEDEIROS [facility] ERT [id number] Univers 14:32:00 14:32:00 [facility] 2020-02-03 2020-02-03 Emergency Fuad [facility] [id number] 17:08:08 18:20:00 Anjali Serena [id number] [place] 4.2.7.2.686 [place] [id number] 2020-02-03 2020-02-03 Emergency X FUAD [facility] ERT [id number] Univers 17:00:00 17:00:00 ANJALI [facility] 2020-02-03 2020-02-03 Orders Doctor HERNANDEZ [id number] 00:00:00 00:00:00 Only Unassigned, ANGIE 350.1.13.10 [place] [address]686 [id number] 009 2020-01-10 2020-01-11 Emergency [facility] [id number] 23:46:02 01:01:00 Serena 350.1.13.10 [place] [id number] [place] [id number] 2020-01-10 2020-01-10 Emergency X [facility] ERT [id number] Univers 23:02:00 23:02:00 ity of [facility] 2019-12-18 2019-12-18 Emergency X Kyra MEDEIROS [facility] ERT [id number] Univers 17:24:37 18:57:00 ity [facility] 2019-12-18 2019-12-18 Emergency Kyra Medeiros [facility] [id number] 17:24:37 18:57:00 Pooja Owens [id number] [place] 4.2.7.2.686 [place] [id number] 084 2019-12-18 2019-12-18 Orders Doctor DAVID [id number] 00:00:00 00:00:00 Only Unassigned, ANGIE 350.1.13.10 [place] [address]686 [id number] 2019-06-29 2019-06-29 Emergency [facility] [id number] 02:13:29 04:06:00 Jose David Owens [id number] [place] [id number] [place] [id number] [id number] Results Test Description Test Time Test Comments Results Result Comments Source COMP. METABOLIC PANEL (31462) 2021-09-23 16:10:10 Test Item Value Reference Range Interpretation Comme nts NA (test code = 2726199100) 135 mmol/L 135-145 K (test code = 6581039772) 4.5 mmol/L 3.5-5.0 CL (test code = 6360024460) 101 mmol/L 98-108 CO2 TOTAL (test code = 28 mmol/L - 7762879359) AGAP (test code = 7578304245) 2-16 BUN (test code = 6423613435) 19 mg/dL 7-23 GLUCOSE (test code = 5687688629) 94 mg/dL 70-110 CREATININE (test code = 0.83 mg/dL 0.50-1.04 6958044411) TOTAL BILI (test code = 0.5 mg/dL 0.1-1.1 1698850217) CALCIUM (test code = 1096149142) 9.9 mg/dL 8.6-10.6 T PROTEIN (test code = 7.6 g/dL 6.3-8.2 7761095751) ALBUMIN (test code = 4934519941) 4.5 g/dL 3.5-5.0 ALK PHOS (test code = 4131702556) 52 U/L 34-122 ALTv (test code = 1742-6) 15 U/L 5-35 AST(SGOT) (test code = 21 U/L 13-40 1644166298) eGFR (test code = 3198244409) mL/min/1.73m2 JASMYN (test code = JASMYN) Association [...] or urine or abnormalities in imaging tests). [facility] 15:52:35 Test Item Value Reference Range Interpretation Comments LIPASE (test code = 7931440398) 72 U/L 0-220 Lab Interpretation (test code = Normal 99653-3) [facility] RUAW9831-10-34 15:37:27 Test Item Value Reference Range Interpretation Comments WBC (test code = See_Comment [Automated 7090-2) message] The sy stem which generated this [...] RDW-SD (test code = 43.4 fL 39.0-49.9 64252-3) RDW-CV (test code = 14.0 % 12.0-15.5 788-0) PLT (test code = See_Comment H [Automated 777-3) message] The sy stem which generated this result transmitted reference range : 166 - 358 10*3/ ?L. The reference r juliano was not used to interpret this result as normal/abnormal . MPV (test code = 10.4 fL 9.5-12.9 23631-5) NRBC/100 WBC (test See_Comment [Automat ed code = 5156604427) message] The system which generated this result transmitted reference range : 0.0 - 10.0 /100 WBCs. The refer ence range was not u sed to interpret th is result as normal/abnormal . NRBC x10^3 (test code <0.01 See_Comment [Auto mated = 5837326764) message] The s ystem which generated this result transmitted reference range : 10*3/?L. The reference range was not used to interpret this result as normal/abnormal . GRAN MAT (NEUT) % 60.5 % (test code = 770-8) IMM GRAN % (test code 0.30 % = 0142653509) LYMPH % (test code = 28.4 % 736-9) MONO % (test code = 6.4 % 5905-5) EOS % (test code = 3.6 % 713-8) BASO % (test code = 0.8 % 706-2) GRAN MAT x10^3(ANC) 3.71 10*3/uL 1.88-7.09 (test code = 5282063644) IMM GRAN x10^3 (test <0.03 0.00-0.06 code = 2644526868) LYMPH x10^3 (test code 1.74 10*3/uL 1.32-3.29 = 731-0) MONO x10^3 (test code 0.39 10*3/uL 0.33-0.92 = 742-7) EOS x10^3 (test code = 0.22 10*3/uL 0.03-0.39 711-2) BASO x10^3 (test code 0.05 10*3/uL 0.01-0.07 = 704-7) Lab Interpretation Abnormal (test code = 97190-2) [facility]"
[2021-11-19 10:34] LABS: Urine Blood Negative (Negative); Urine Glucose Negative (Negative); Urine Protein Negative (Negative); Urine Specific Gravity 1.015 (1.005-1.030)
[2021-11-19] MEDS ORDERED: PANTOPRAZOLE 40 MG INJ ONE (10:37)
[2021-11-19] MEDS ORDERED: MORPHINE 4 MG/ML SYR ONE (10:37)
[2021-11-19] MEDS ORDERED: ONDANSETRON 4 MG/2 ML VIAL ONE (10:37)
[2021-11-19 10:45] LABS: Absolute Lymphocytes (CBC) 1.9 K/uL (0.7-4.9); Lymphocytes % 30.2 % (15.3-44.8); MPV 7.9 fL (7.6-11.3); RBC Red Blood Cell Count 4.89 M/uL (3.86-4.86)
[2021-11-19 10:53] LABS: Urine Specific Gravity/Preg 1.015 (1.005-1.030)
[2021-11-19 11:05] LABS: ALT/SGPT 24 U/L (12-78); AST/SGOT 13 U/L (15-37); Albumin 3.8 g/dL (3.4-5.0); Alkaline Phosphatase 52 U/L (45-117); BUN Blood Urea Nitrogen 11 mg/dL (7-18); Bicarbonate 26 mmol/L (21-32); Bilirubin Direct < 0.1 mg/dL (0-0.2); Bilirubin Total 0.4 mg/dL (0.2-1.0); Glucose Level 90 mg/dL (74-106); Lipase 58 U/L (73-393); Magnesium 2.1 mg/dL (1.8-2.4); Potassium 3.7 mmol/L (3.5-5.1); Protein, Total 7.9 g/dL (6.4-8.2); Sodium Level 135 mmol/L (136-145)
--- NOTE | 2021-11-19 11:35 | RAD REPORT ---
EXAM DESCRIPTION: RAD - Chest Single View - 11/19/2021 11:25 am CLINICAL HISTORY: vomiting COMPARISON: ABDOMEN ACUTE SERIES dated 07/22/2011; CHEST SINGLE VIEW dated 11/11/2009 FINDINGS: Lines: None. Lungs: No evidence of edema or pneumonia. Pleural: No significant pleural effusions or pneumothorax. Cardiac: The heart size is within normal limits. Bones: No acute fractures. Other: IMPRESSION: No acute cardiopulmonary disease.
--- NOTE | 2021-11-19 11:52 | RAD REPORT ---
EXAM DESCRIPTION: US - Abdomen Exam Limited - 11/19/2021 11:45 am CLINICAL HISTORY: ABD PAIN COMPARISON: Abdomen Pelvis W Contrast dated 09/08/2021 FINDINGS: The gallbladder demonstrates no gallstones. Small volume of sludge noted. No pericholecyst ic fluid or gallbladder wall thickening. The common bile duct is normal measuring 2 mm. The liver demonstrates no findings of intrahepatic biliary dilatation. IMPRESSION: Negative for cholelithiasis, acute cholecystitis, or biliary ductal dilatation.
[2021-11-19 11:55] LABS: Urine Bacteria >50 /HPF (<20); Urine RBC NONE SEEN /HPF (NONE SEEN)
[2021-11-19] MEDS ORDERED: MAGNES/ALUMIN/SIMET 30ML UCUP ONE (12:28)
[2021-11-19] MEDS ORDERED: NA CHLORIDE 0.9% 1,000 ML ONE (12:29)
[2021-11-19] MEDS ORDERED: SMZ./TMP. 800/160 MG TABLET ONE (12:29)
[2021-11-19] MEDS ORDERED: LIDOCAINE VISCOUS 2% SOLN 15 ML UDC ONE (12:29)
--- NOTE | 2021-11-19 13:05 | EDPHYS ---
Physician Documentation [facility] Name: Genesis Hu Age: 31 yrs Sex: Female : 1990 Arrival Date: 11/19/2021 Time: 09:46 Bed 27 Private MD: ED Physician Alverto Ferrer HPI: 11/19 10:22 This 31 yrs old Female presents to ER via Ambulatory with complaints of Abdominal Pain, cp Nausea. 10:22 The patient presents with abdominal pain in the upper abdomen, mid abdomen. Onset: The cp symptoms/episode began/occurred 4 day(s) ago. The symptoms do not radiate. Associated signs and symptoms: Pertinent positives: nausea and vomiting, vomiting blood, Pertinent negatives: blood in stools, chest pain, constipation, diarrhea. The symptoms are described as burning. 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 - Social history:: Smoking status: unknown. ROS: 10:26 Eyes: Negative for injury, pain, redness, and discharge. cp 10:26 Constitutional: Negative for body aches, chills, fever, weight loss. 10:26 ENT: Positive for sore throat, Negative for drainage from ear(s), ear pain, difficulty swallowing, difficulty handling secretions. 10:26 Cardiovascular: Negative for chest pain, palpitations. 10:26 Respiratory: Negative for cough, shortness of breath, wheezing. 10:26 Abdomen/GI: Negative for diarrhea, constipation, black/tarry stool, rectal bleeding. 10:26 Back: Negative for radiated pain. 10:26 : Negative for urinary symptoms. 10:26 Neuro: Negative for altered mental status, dizziness, headache, weakness. 10:26 All other systems are negative. Exam: 10:28 Head/Face: Normocephalic, atraumatic. cp 10:28 Constitutional: The patient appears in no acute distress, alert, awake, non-toxic, well developed, well nourished, uncomfortable. 10:28 Eyes: Periorbital structures: appear normal, Conjunctiva: normal, no exudate, no injection, Sclera: no appreciated abnormality, Lids and lashes: appear normal, bilaterally. 10:28 ENT: External ear(s): are unremarkable, Nose: is normal, Mouth: Lips: moist, Oral mucosa: moist, Posterior pharynx: Airway: no evidence of obstruction, patent. 10:28 Chest/axilla: Inspection: normal. 10:28 Cardiovascular: Rate: normal. 10:28 Respiratory: the patient does not display signs of respiratory distress, Respirations: normal, no use of accessory muscles, no retractions. 10:28 Abdomen/GI: Inspection: abdomen appears normal, Bowel sounds: active, all quadrants, Palpation: soft, in all quadrants, mild abdominal tenderness, in the left upper quadrant and mid abdomen bilaterally, rebound tenderness, is not appreciated, voluntary guarding, is not appreciated, involuntary guarding, is not appreciated. 10:28 Back: pain, that is mild, of the lumbar area, ROM is normal. 10:28 Neuro: Orientation: to person, place \T\ time. Mentation: is normal, Motor: moves all fours, strength is normal, Gait: is steady. Vital Signs: 09:56 BP 124 / 96; Pulse 92; Resp 18 S; Temp 98.3(TE); Pulse Ox 98% on R/A; Weight 81.65 kg jd3 (R); Height 5 ft. 6 in. (167.64 cm) (R); Pain 6/10; 11:20 BP 136 / 103; Pulse 94; Resp 18; Pulse Ox 98% on R/A; mk 12:20 BP 125 / 84; Pulse 71; Resp 16; Pulse Ox 99% on R/A; mk 13:17 BP 131 / 79; Pulse 80; Resp 16; Pulse Ox 98% on R/A; ab2 09:56 Body Mass Index 29.05 (81.65 kg, 167.64 cm) jd3 MDM: 10:13 Patient medically screened. cp 12:25 Data reviewed: vital signs, nurses notes, lab test result(s), radiologic studies, cp ultrasound. 11/19 10:22 Order name: Basic Metabolic Panel; Complete Time: 11:07 cp 11/19 11:07 Interpretation: Normal except: NA 135; GFR 69. cp 11/19 10:22 Order name: CBC with Diff; Complete Time: 11:07 cp 11/19 11:07 Interpretation: Normal except: RBC 4.89; MCV 77.7; MCH 25.2; RDW 15.3. cp 11/19 10:22 Order name: Hepatic Function; Complete Time: 11:07 cp 11/19 11:11 Interpretation: Normal except: AST 13; GLOB 4.1; A/G 0.9. cp 11/19 10:22 Order name: Lipase; Complete Time: 11:07 cp 11/19 11:12 Interpretation: LIP 58; Reviewed. 11/19 10:22 Order name: Magnesium; Complete Time: 11:07 cp 11/19 10:34 Order name: Urine Dipstick-Ancillary; Complete Time: 11:07 EDMS 11/19 11:07 Interpretation: Normal except: U NIT Positive; UESTR 1+. 11/19 10:22 Order name: XRAY Chest (1 view); Complete Time: 12:18 cp 11/19 10:34 Order name: Urine --Ancillary (enter results); Complete Time: 11:07 bd 11/19 11:13 Order name: Urine Microscopic Only; Complete Time: 12:18 cp 11/19 12:18 Interpretation: Normal except: UWBC 10-20; UBACT >50. cp 11/19 11:13 Order name: Urine Culture 11/19 11:14 Order name: US Abdomen Limited: gallbladder; Complete Time: 12:18 cp 11/19 10:22 Order name: IV Saline Lock; Complete Time: 10:34 cp 11/19 10:22 Order name: Labs collected and sent; Complete Time: 10:34 cp 11/19 10:22 Order name: Urine Dipstick-Ancillary (obtain specimen); Complete Time: 10:34 cp 11/19 10:22 Order name: Urine Test (obtain specimen); Complete Time: 10:34 cp Administered Medications: 10:42 Drug: ProTONIX (pantoprazole) 40 mg Route: IVP; Site: right antecubital; mk 12:33 Follow up: Response: No adverse reaction mk 10:42 Drug: Zofran (Ondansetron) 4 mg Route: IVP; Site: right antecubital; mk 12:32 Follow up: Response: No adverse reaction mk 10:42 Drug: morphine 4 mg Route: IVP; Site: right antecubital; mk 12:32 Follow up: Response: No adverse reaction mk 12:32 Drug: Bactrim (trimethoprim-sulfamethoxazole) (160 mg-800 mg (DS) 1 tablet Route: PO; mk 12:32 Drug: NS 0.9% 1000 ml Route: IV; Rate: 1 bolus; Site: right antecubital; 12:32 Drug: GI Cocktail without - (Maalox Suspension 30 ml, Lidocaine Liquid 2 % 15 mk ml) Route: PO; Disposition: 17:28 Co-signature as Attending Physician, Alverto Ferrer MD I agree with the assessment and kdr plan of care. Disposition Summary: 11/19/21 13:04 Discharge Ordered Location: Home cp Problem: new cp Symptoms: have improved cp Condition: Stable cp Diagnosis - Upper abdominal pain, unspecified cp Followup: cp - With: Private Physician - When: 2 - 3 days - Reason: Worsening of condition Discharge Instructions: - Discharge Summary Sheet cp - Abdominal Pain, Adult cp - Upper Endoscopy, Adult cp Forms: - Medication Reconciliation Form cp - Thank You Letter cp - Antibiotic Education cp - Prescription Opioid Use cp Prescriptions: - Protonix 40 mg Oral Tablet - take 1 tablet by ORAL route once daily; 30 tablet; Refills: 0, Product cp Selection Permitted - Zofran 4 mg Oral Tablet - take 1 tablet by ORAL route every 12 hours As needed; 20 tablet; Refills: 0, cp Product Selection Permitted Signatures: Dispatcher [employer] Alverto Albert MD MD kdr Page, Corey, PA PA cp Ken Miranda RN RN Dafne Tee RN RN mk
--- NOTE | 2021-11-19 13:05 | ER ---
Nurse's Notes [facility] Name: Genesis Hu Age: 31 yrs Sex: Female : 1990 Arrival Date: 11/19/2021 Time: 09:46 Bed 27 Private MD: Diagnosis: Upper abdominal pain, unspecified Presentation: 11/19 09:53 Chief complaint: Patient states: "I have been throwing up stomach acid for 4 days now jd3 and now I am throwing up blood this morning. my doctor was told I have a sever amount of acid and esophagus stuff and I can't see a GI doctor until my insurance is working.". Coronavirus screen: At this time, the client does not indicate any symptoms associated with coronavirus-19. Ebola Screen: Patient negative for fever greater than or equal to 101.5 degrees Fahrenheit, and additional compatible Ebola Virus Disease symptoms. Initial Sepsis Screen: Does the patient meet any 2 criteria? No. Patient's initial sepsis screen is negative. Does the patient have a suspected source of infection? No. Patient's initial sepsis screen is negative. Risk Assessment: Do you want to hurt yourself or someone else? Patient reports no desire to harm self or others. Onset of symptoms was November 19, 2021. 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 - Social history:: Smoking status: unknown. Screenin:09 Abuse screen: Denies threats or abuse. Denies injuries from another. Nutritional mk screening: No deficits noted. Tuberculosis screening: No symptoms or risk factors identified. Fall Risk None identified. Assessment: 10:06 General: Appears in no apparent distress. comfortable, Behavior is calm, cooperative, mk appropriate for age. Pain: Complains of pain in abdomen Pain currently is 7 out of 10 on a pain scale. Neuro: Level of Consciousness is awake, alert, obeys commands, Oriented to person, place, time, situation, Appropriate for age [employer] are equal bilaterally Moves all extremities. Gait is steady, Speech is normal. Cardiovascular: No deficits noted. Denies chest pain, shortness of breath, Heart tones S1 S2 present Patient's skin is warm and dry. Chest pain is denied. Respiratory: Airway is patent Breath sounds are clear bilaterally. Denies cough, shortness of breath. GI: Abdomen is round non-distended, Bowel sounds present X 4 quads. Abdomen is tender to palpation X 4 quads. Reports intolerance of fluids, intolerance of food, nausea, vomiting. : No deficits noted. No signs and/or symptoms were reported regarding the genitourinary system. EENT: No deficits noted. No signs and/or symptoms were reported regarding the EENT system. Derm: No deficits noted. No signs and/or symptoms reported regarding the dermatologic system. Musculoskeletal: No deficits noted. No signs and/or symptoms reported regarding the musculoskeletal system. Vital Signs: 09:56 BP 124 / 96; Pulse 92; Resp 18 S; Temp 98.3(TE); Pulse Ox 98% on R/A; Weight 81.65 kg jd3 (R); Height 5 ft. 6 in. (167.64 cm) (R); Pain 6/10; 11:20 BP 136 / 103; Pulse 94; Resp 18; Pulse Ox 98% on R/A; mk 12:20 BP 125 / 84; Pulse 71; Resp 16; Pulse Ox 99% on R/A; mk 13:17 BP 131 / 79; Pulse 80; Resp 16; Pulse Ox 98% on R/A; ab2 09:56 Body Mass Index 29.05 (81.65 kg, 167.64 cm) jd3 ED Course: 09:46 Patient arrived in ED. ds1 09:55 Triage completed. jd3 09:57 Arm band placed on. jd3 09:58 Dafne Suarez, IRENE is Primary Nurse. mk 10:04 Eddie Alonzo PA is PHCP. cp 10:04 Alverto Ferrer MD is Attending Physician. cp 10:09 Patient has correct armband on for positive identification. Bed in low position. Side mk rails up X2. 10:09 No provider procedures requiring assistance completed. mk 11:20 Urine Culture Sent. mk 11:20 Urine Microscopic Only Sent. mk 11:26 XRAY Chest (1 view) In Process Unspecified. EDMS 11:47 US Abdomen Limited: gallbladder In Process Unspecified. EDMS 13:15 IV discontinued, intact, bleeding controlled, No redness/swelling at site. Pressure mk dressing applied. Administered Medications: 10:42 Drug: ProTONIX (pantoprazole) 40 mg Route: IVP; Site: right antecubital; mk 12:33 Follow up: Response: No adverse reaction mk 10:42 Drug: Zofran (Ondansetron) 4 mg Route: IVP; Site: right antecubital; mk 12:32 Follow up: Response: No adverse reaction mk 10:42 Drug: morphine 4 mg Route: IVP; Site: right antecubital; mk 12:32 Follow up: Response: No adverse reaction mk 12:32 Drug: Bactrim (trimethoprim-sulfamethoxazole) (160 mg-800 mg (DS) 1 tablet Route: PO; mk 12:32 Drug: NS 0.9% 1000 ml Route: IV; Rate: 1 bolus; Site: right antecubital; mk 12:32 Drug: GI Cocktail without - (Maalox Suspension 30 ml, Lidocaine Liquid 2 % 15 mk ml) Route: PO; Outcome: 13:04 Discharge ordered by . gregorio 13:17 Discharged to home ambulatory. ab2 13:17 Condition: good 13:17 Discharge instructions given to patient, Instructed on discharge instructions, follow up and referral plans. Demonstrated understanding of instructions, follow-up care, medications, Prescriptions given X 2. 13:19 Patient left the ED. ab2 Signatures: Dispatcher [employer] [facility] Rolanda Mcmanus ds1 Eddie Alonzo PA PA cp Davies, Jonathon, RN RN Dafne Tee RN RN Vitaly Asencio ab2
[2021-11-19 13:26] VITALS: TEMP 98.3
[2021-11-19 13:30] VITALS: BP 131/79; O2SAT 98
== END 2021-11-19 13:19 | disposition home or self-care (01) ==
LOC: ER 09:44
DX: R10.10 Upper abdominal pain, unspecified (principal); R11.2 Nausea with vomiting, unspecified; Z88.0 Allergy status to penicillin; Z88.1 Allergy status to other antibiotic agents; Z88.8 Allergy status to other drugs, medicaments and biological substances; Z91.040 Latex allergy status; Z91.048 Other nonmedicinal substance allergy status
CPT/HCPCS: 36415; 71045; 76705; 80048; 80076; 81003; 81015; 81025; 83690; 83735; 85025; 87086; 87088; 96374; 96375; 99284; C9113; J2405; J7030

== ENCOUNTER 2022-01-17 12:52 | Emergency (ER) | payer OTHER, SELFPAY ==
--- OUTSIDE RECORDS SUMMARY | 2022-01-17 12:56 | XMS REPORT | Continuity of Care Document ---
:1990 Author Organization [facility] t Address Formerly [facility] [address] [place] [address] Care Team Providers Name Role Phone PCP, DOES NOT HAVE A Primary Care Physician Unavailable Marcial AARON Attending Clinician Unavailable Blas SOTO S Attending Clinician Attending Clinician Unavailable Singer ROJAS Attending Clinician Milton WINSTON Attending Clinician Unavailable Milton Winston DO Attending Clinician Pooja Sweeney Attending Clinician Gaby Brower MD Attending Clinician Gaby BROWER Attending Clinician Unavailable POOJA MEDEIROS Attending Clinician Unavailable Fuad BEAN Attending Clinician FUAD Attending Clinician Unavailable Doctor Unassigned, Name Attending Clinician Unavailable Daniela Valle MD Attending Clinician Payers Payer Name Policy Type Policy Number Effective Date Expiration Date S [facility] [place] PENDING PENDING 2021 00:00:00 Problems Condition Condition Condition Status Onset Resolution Last Treating Co mments Source Name Details Category Date Date Treatment Clinician Date Abdominal Abdominal Disease Active Overview: Univers pain pain 07-28 Formattin ity of 00:00: g of this [place] note Medical might be Branch different from the original. ICD10 Diagnosis Term Machine Taper Utility Abnormal Abnormal Disease Active Overview: Un se glucose glucose 07-06 Formattin ity o f tolerance tolerance 00:00: g of this [place] test test note Medical might be Branch different from the original. 1 hr- 47 Immune to Immune to Disease Active Uni vers varicella varicella 07-05 ity of 00:00: [place] [facility] High-risk High-risk Disease Active Overview: Univers 06-30 Formattin i ty of 00:00: g of this [place] note Medical might be Branch different from the original. Medical records received. [facility]. DOS- 0. CC: 30 weeks w/ twins, vomiting black liquid. No evidence of hepatitis , pancreati tis, or liver dysfuncti on. Physiolog ic anemia. No UTI or ketonuria . ICD10 Diagnosis Term Machine Taper Utility History of History of Disease Active Overview : Univers 06-30 Formattin i ty of 00:00: g of this [place] note Medical might be Branch different from the original. Medical records- 0- IUP at 33 weeks. Dichorion ic, diamnioti c twin gestation . presentat ion Vertex and transvers e. PTL. Primary low transvers e via Pfannenst iel incision. Right dermoid cystectom y. Bipolar Bipolar Disease Active Univers disorder disorder 06-30 ity of 00:00: 00 Medical Branch Family Family Disease Active Overview: Univer s history of history of 06-30 Formattin ity of congenital congenital 00:00: g of this [place] anomalies anomalies 00 note Medi denzel might be Branch different from the original. Detailed US and Genetics. Mother born with spinal bifida ocarta and hole in the heart and born with heart murmur History of History of Disease Active Overview : Univers 06-30 Formattin ity o f labor labor 00:00: g of this [place] 00 note Medical might be Branch different from the original. Delivered at 28 week via for PTL -Twins. Send to [facility] at 16 weeks Pain Pain Disease Active Univers pelvic pelvic 8-30 ity of 00:00: [place] 00 Medical Branch Rubella Rubella Disease Active Univers immune immune 8-30 ity of 00:00: [place] 00 Medical Branch Allergies, Adverse Reactions, Alerts Allergy Allergy Status Severity Reaction(s) Onset Inactive Treating Comm ents Source Name Type Date Date Clinician AMOXICIL DRUG Active Anaphylaxis Uni vers DAVY INGREDI 3-11 ity of 00:00: [place] 00 Medical Branch Amoxicil Propensi Active Anaphylaxis U nivers davy ty to 3-11 ity of adverse 00:00: [place] reaction Medical s Branch PENICILL DRUG Active Anaphylaxis 2015-11 Uni vers IN INGREDI 2-14 ity of 00:00: [place] 00 Medical Branch Penicill Propensi Active Anaphylaxis 2015-11 U nivers in ty to 2-14 ity of adverse 00:00: [place] reaction 00 Medical s Branch BEE DRUG Active Unknown-Cmnt Univ ers POLLEN INGREDI - ity of 00:00: [place] 00 Medical Branch Bee Propensi Active Unknown - Unive rs Pollen ty to See comments 12-01 ity of adverse 00:00: [place] reaction 00 [facility] [place] Social History Social Habit Start Date Stop Date Quantity Comments Source Exposure to Not sure [facility] SARS-CoV-2 [place] Medical (event) Branch Alcohol intake 2021-10-13 2021-10-13 Current [facility] 00:00:00 00:00:00 non-drinker of [facility] alcohol Branch (finding) Tobacco use and 2013-06-30 2013-06-30 Never used Universit y of exposure 00:00:00 00:00:00 [facility] Sex Ass[birth year] At [birth year] Universit y of 00:00:00 00:00:00 [facility] Smoking Status Start Date Stop Date Source Never smoker [facility] Branch Medications Ordered Filled Start Stop Current Ordering Indication Dosage Frequency Signature Comments Components Source Medication Medication Date Date Medication? Clinician (SIG) Name Name rodrigo Yes [id number] 500mg Take 1 Univers dominique 500 mg 2-23 tablet by ity of tablet 00:00: mouth [place] 00 every 12 Medical (twelve) Branch hours. pantoprazol Yes [id number] 40mg Take 1 Univers e 40 mg EC 2-23 tablet by ity of tablet 00:00: mouth [place] 00 daily. Medical Branch sucralfate 2021- Yes [id number] 1g Take 1 Univers 1 gram 2-23 03-26 tablet by ity of tablet 00:00: 04:59 mouth [place] 00 :00 before Medical meals and Branch at bedtime for 30 days. metroNIDAZO 2021- Yes [id number] 500mg Take 1 Univers LE 500 mg 2-23 03-10 tablet by ity of tablet 00:00: 05:59 mouth [place] 00 :00 every 8 Medical (eight) Branch hours for 14 days. sucralfate 2021- No [id number] 1g Take 1 Univers 1 gram 2-23 - tablet by ity of tablet 00:00: 00:00 mouth [place] 00 :00 before Medical meals and Branch at bedtime. maalox:diph 2021- No 15mL 15 mL, Uni vers enhydrAMINE 2-07 02-07 Oral, ity of :lidocaine 21:30: 20:30 ONCE, 1 Jerrell as 2 % viscous 00 :00 dose, On Medi denzel 1:1:1 12/08/21 Branch (FIRST-MOUT at 1530, [facility]) Routine oral suspension 15 mL sucralfate Yes [id number] 1g Take 1 U nivers 1 gram 2-07 tablet by ity of tablet 00:00: mouth [place] 00 before Medical meals and Branch at bedtime. dicyclomine Yes [id number] 10mg Take 1 Univers (BENTYL) 10 2-07 capsule by it y of mg capsule 00:00: mouth [place] 00 every 8 Medical (eight) Branch hours as needed for Abdominal pain. ondansetron Yes [id number] 4mg Take 1 Univers 4 mg 2-07 tablet by ity of disintegrat 00:00: mouth [place] ing tablet 00 every 8 Medica l (eight) Branch hours as needed for Nausea and Vomiting (N/V). dicyclomine Yes [id number] 10mg Take 1 Univers (BENTYL) 10 2-07 capsule by it y of mg capsule 00:00: mouth [place] 00 every 8 Medical (eight) Branch hours as needed for Abdominal pain. ondansetron Yes [id number] 4mg Take 1 Univers 4 mg 2-07 tablet by ity of disintegrat 00:00: mouth [place] ing tablet 00 every 8 Medica l (eight) Branch hours as needed for Nausea and Vomiting (N/V). omeprazole 2021- Yes [id number] 20mg Take 1 Univers 20 mg 2-07 03-10 capsule by ity of capsule 00:00: 05:59 mouth [place] 00 :00 daily for Medical 30 days. Branch omeprazole 2021- Yes [id number] 20mg Take 1 Univers 20 mg 2-07 03-10 capsule by ity of capsule 00:00: 05:59 mouth [place] 00 :00 daily for Medical 30 days. Branch sucralfate 2021- No [id number] 1g Take 1 Univers 1 gram 2-07 -23 tablet by ity of tablet 00:00: 00:00 mouth [place] 00 :00 before Medical meals and Branch at bedtime. bismuth-met 2021- Yes [id number] 3{capsu Take 3 Univers ronidazole- 2-07 -22 le} capsules ity of tetracyclin 00:00: 05:59 by mouth [place] e 00 :00 before Medical 140-125-125 meals and Bra nch mg per at bedtime capsule for 14 days. pantoprazol 2020-11 Yes [id number] 40mg Take 1 Univers e 2-13 tablet by ity of (PROTONIX) 00:00: mouth [place] 40 mg EC 00 daily. Medical tablet Branch pantoprazol 2020-11 Yes [id number] 40mg Take 1 Univers e 2-13 tablet by ity of (PROTONIX) 00:00: mouth [place] 40 mg EC 00 daily. Medical tablet Branch pantoprazol 2020-11- No [id number] 40mg Take 1 Univers e 2-13 02-23 tablet by ity of (PROTONIX) 00:00: 00:00 mouth [place] 40 mg EC 00 :00 daily. Medical tablet Branch sucralfate 2020-11- No [id number] 1g Take 1 Univers 1 gram 2-13 01-13 tablet by ity of tablet 00:00: 05:59 mouth [place] 00 :00 before Medical meals and Branch at bedtime for 30 days. dicyclomine 2020-11 Yes 10mg 10 mg, Univ ers (BENTYL) - Oral, QID, ity o f capsule 10 18:00: First dose [place] mg 00 on [facility] 09/23/21 Branch at 1200, Until Discontinu ed, Routine sucralfate 2020-11 Yes 1g 1 g, Oral, U nivers (CARAFATE) 11-23 AC+HS, ity of tablet 1 g 17:30: First dose [place] 00 on [facility] 09/23/21 Branch at 1130, Until Discontinu ed, Routine pantoprazol 2020-11 40mg 40 mg, Uni vers e 11-23 Slow IV ity of (PROTONIX) 15:45: 15:00 Push, [place] injection 00 :00 ONCE, 1 Medical 40 mg dose, On Branch [facility] 09/23/21 at 0945 dicyclomine 2020-11 Yes [id number] 10mg Take 1 Univers (BENTYL) 10 -23 capsule by it y of mg capsule 00:00: mouth [place] 00 every 8 Medical (eight) Branch hours as needed for Abdominal pain. ondansetron 2020-11 Yes [id number] 4mg Take 1 Univers 4 mg 1-23 tablet by ity of disintegrat 00:00: mouth [place] ing tablet 00 every 8 Medica l (eight) Branch hours as needed for Nausea and Vomiting (N/V). sucralfate 2020-11 Yes [id number] 1g Take 1 U nivers 1 gram 1-23 tablet by ity of tablet 00:00: mouth [place] 00 before Medical meals and Branch at bedtime. dicyclomine 2020-11 Yes [id number] 10mg Take 1 Univers (BENTYL) 10 1-23 capsule by it y of mg capsule 00:00: mouth [place] 00 every 8 Medical (eight) Branch hours as needed for Abdominal pain. ondansetron 2020-11 Yes [id number] 4mg Take 1 Univers 4 mg 1-23 tablet by ity of disintegrat 00:00: mouth [place] ing tablet 00 every 8 Medica l (eight) Branch hours as needed for Nausea and Vomiting (N/V). pantoprazol 2020-11 Yes [id number] 40mg Take 1 Univers e -23 tablet by ity of (PROTONIX) 00:00: mouth [place] 40 mg EC 00 daily. Medical tablet Branch dicyclomine 2020-11- No [id number] 10mg Take 1 Univers (BENTYL) 10 11-23- capsule by i ty of mg capsule 00:00: 00:00 mouth [place] 00 :00 every 8 Medical (eight) Branch hours as needed for Abdominal pain. ondansetron 2020-11- No [id number] 4mg Take 1 Univers 4 mg 11-23- tablet by ity of disintegrat 00:00: 00:00 [place] ing tablet 00 :00 every 8 Medica l (eight) Branch hours as needed for Nausea and Vomiting (N/V). sucralfate 2020-11- No [id number] 1g Take 1 Univers 1 gram 11-23 12-13 tablet by ity of tablet 00:00: 00:00 mouth [place] 00 :00 before Medical meals and Branch at bedtime. pantoprazol 2020-11- No [id number] 40mg Take 1 Univers e - 12-13 tablet by ity of (PROTONIX) 00:00: 00:00 mouth [place] 40 mg EC 00 :00 daily. Medical tablet Branch ciprofloxac Yes [id number] 500mg Take 1 Univers in HCl 500 1-25 tablet by ity of mg tablet 00:00: mouth 2 [place] 00 (two) Medical times Branch daily. ciprofloxac 2020- No [id number] 500mg Take 1 Univers in HCl 500 1-25 12-13 tablet by ity of mg tablet 00:00: 00:00 mouth 2 [place] 00 :00 (two) Medical times Branch daily. ondansetron 2020- No [id number] 4mg Take 1 Univers (ZOFRAN 1-25 -23 tablet by ity of ODT) 4 mg 00:00: 00:00 mouth [place] disintegrat 00 :00 every 8 Medic al ing tablet (eight) Branch hours as needed for Nausea and Vomiting (N/V). cyclobenzap 2019-11 Yes [id number] 10mg Take 1 Univers rine 10 mg 1-11 tablet by ity of tablet 00:00: mouth 3 [place] 00 (three) Medical times Branch daily. cyclobenzap 2020- Yes [id number] 10mg Take 1 Univers rine 10 mg 1-11 tablet by ity of tablet 00:00: mouth 3 [place] 00 (three) Medical times Branch daily. cyclobenzap 2019- Yes [id number] 10mg Take 1 Univers rine 10 mg 1-11 tablet by ity of tablet 00:00: mouth 3 [place] 00 (three) Medical times Branch daily. ibuprofen 2019- Yes [id number] 600mg Take 1 Univers 600 mg 1-11 tablet by ity of tablet 00:00: mouth [place] 00 every 6 Medical (six) Branch hours as needed for Pain (scale 4-6). cyclobenzap 2019- Yes [id number] 10mg Take 1 Univers rine 10 mg 1-11 tablet by ity of tablet 00:00: mouth 3 [place] 00 (three) Medical times Branch daily. ibuprofen 2019-11- No [id number] 600mg Take 1 Univers 600 mg 1-11 [...] Branch OLIC ACID ORAL) bromphenira 2020-0 Yes [id number] 5mL Take 5 mL Univers mine-pseudo 4-04 by mouth 4 it y of ephedrine-D 00:00: (four) Jerrella s M (BROMFED 00 times Medical DM) 2-30-10 daily as Bran ch mg/5 mL needed for syrup Congestion /Allergies or Cough. bromphenira 2020-0 Yes [id number] 5mL Take 5 mL Univers mine-pseudo 4-04 by mouth 4 it y of ephedrine-D 00:00: (four) Jerrella s M (BROMFED 00 times Medical DM) 2-30-10 daily as Bran ch mg/5 mL needed for syrup Congestion /Allergies or Cough. bromphenira 2020-0 Yes [id number] 5mL Take 5 mL Univers mine-pseudo 4-04 by mouth 4 it y of ephedrine-D 00:00: (four) Jer[place] s M (BROMFED 00 times Medical DM) 2-30-10 daily as Bran ch mg/5 mL needed for syrup Congestion /Allergies or Cough. methylPREDN 2020-0 Yes [id number] Take by Univers ISolone 4 4-04 mouth ity of mg tablets 00:00: SEE-INSTRU [place] 00 CTIONS. Medical follow Branch package directions levoFLOXaci 2020-0 Yes [id number] 500mg Take 1 Univers n 4-04 tablet by ity of (LEVAQUIN) 00:00: mouth [place] 500 mg 00 every 24 Medical tablet (twenty-fo Branch ur) hours. bromphenira 2020-0 Yes [id number] 5mL Take 5 mL Univers mine-pseudo 4-04 by mouth 4 it y of ephedrine-D 00:00: (four) Jer[place] s M (BROMFED 00 times Medical DM) 2-30-10 daily as Bran ch mg/5 mL needed for syrup Congestion /Allergies or Cough. methylPREDN 2020-0 1- No [id number] Take by Univers ISolone 4 4-04 12-13 mouth ity of mg tablets 00:00: 00:00 SEE-INSTRU [place] 00 :00 CTIONS. Medical follow Branch package directions levoFLOXaci 2020-0 2021- No [id number] 500mg Take 1 Univers n 4-04 12-13 tablet by ity of (LEVAQUIN) 00:00: 00:00 mouth [place] 500 mg 00 :00 every 24 Medical tablet (twenty-fo Branch ur) hours. Immunizations Ordered Filled Immunization Date Status Comments Sourc e Immunization Name Name Td 2016-04-30 Completed University of 00:00:00 [place] [facility] Td 2016-04-30 Completed University of 00:00:00 [place] [facility] Td 2016-04-30 Completed University of 00:00:00 [place] [facility] Td 2016-04-30 Completed University of 00:00:00 [place] [facility] Rubella 2010-04-22 Completed University of 00:00:00 [place] [facility] Rubella 2010-04-22 Completed University of 00:00:00 [place] [facility] Rubella 2010-04-22 Completed University of 00:00:00 [place] [facility] Rubella 2010-04-22 Completed University of 00:00:00 [place] [facility] Td 2006-06-30 Completed University of 00:00:00 [place] [facility] Td 2006-06-30 Completed University of 00:00:00 [place] [facility] Td 2006-06-30 Completed University of 00:00:00 [place] [facility] Td 2006-06-30 Completed University of 00:00:00 [facility] Vital Signs Vital Name Observation Time Observation Value Comments Source Systolic blood 2021-12-24 17:26:00 147 mm[Hg] Univer sity of pressure [facility] Diastolic blood 2021-12-24 17:26:00 80 mm[Hg] Unive rsity of [facility] Heart rate 2021-12-24 17:26:00 71 /min [facility] Body temperature 2021-12-24 17:26:00 36.17 [facility] Respiratory rate 2021-12-24 17:26:00 18 /min [facility] Body weight 2021-12-24 17:26:00 86.183 kg [facility] BMI 2021-12-24 17:26:00 29.76 kg/m2 [facility] Oxygen saturation in 2021-12-24 17:26:00 99 /min [facility] Arterial blood by [facility] Pulse oximetry Branch Systolic blood 2021-12-08 18:45:00 131 mm[Hg] Univer sity of pressure [facility] Diastolic blood 2021-12-08 18:45:00 91 mm[Hg] Unive rsity of pressure [facility] Heart rate 2021-12-08 18:45:00 86 /min [facility] Body temperature 2021-12-08 18:45:00 36.72 [place] Univ ersity of [place] [facility] Respiratory rate 2021-12-08 18:45:00 18 /min Univ ersity of [place] [facility] Body weight 2021-12-08 18:45:00 86.183 kg Universi ty of [place] [facility] BMI 2021-12-08 18:45:00 29.76 kg/m2 Universi ty of [place] [facility] Oxygen saturation in 2021-12-08 18:45:00 98 /min University of Arterial blood by [place] [facility] Pulse oximetry Branch Systolic blood 2021-10-13 13:42:00 123 mm[Hg] Univer sity of pressure [place] [facility] Diastolic blood 2021-10-13 13:42:00 78 mm[Hg] Unive rsity of pressure [place] [facility] Heart rate 2021-10-13 13:42:00 86 /min Universi ty of [place] [facility] Body temperature 2021-10-13 13:42:00 36.78 [place] Univ ersity of [place] [facility] Respiratory rate 2021-10-13 13:42:00 18 /min Univ ersity of [place] [facility] Body weight 2021-10-13 13:42:00 86.183 kg Universi ty of [place] [facility] BMI 2021-10-13 13:42:00 29.76 kg/m2 Universi ty of [place] [facility] Oxygen saturation in 2021-10-13 13:42:00 98 /min University of Arterial blood by [place] [facility] Pulse oximetry Branch Systolic blood 2021-09-23 16:00:00 128 mm[Hg] Univer sity of pressure [place] [facility] Diastolic blood 2021-09-23 16:00:00 79 mm[Hg] Unive rsity of pressure [place] [facility] Heart rate 2021-09-23 16:00:00 79 /min Universi ty of [place] [facility] Body temperature 2021-09-23 16:00:00 36.72 [place] Univ ersity of [place] [facility] Oxygen saturation in 2021-09-23 16:00:00 100 /min University of Arterial blood by [place] Medi denzel Pulse oximetry Branch Respiratory rate 2021-09-23 14:25:00 18 /min Univ ersity of [place] [facility] Body height 2021-09-23 14:25:00 170.2 cm Universi ty of [place] [facility] Body weight 2021-09-23 14:25:00 86.183 kg [facility] BMI 2021-09-23 14:25:00 29.76 kg/m2 [facility] Procedures Procedure Date / Time Performed Performing Clinician Sour e CONSENT/REFUSAL FOR 2021-12-24 17:15:06 Doctor Unassigned, No Un [facility] [place] DIAGNOSIS AND Name Medical Branch TREATMENT NOTICE OF PRIVACY 2021-12-08 18:35:32 Doctor Unassigned, No [facility] PRACTICES Name Medical Branch CONSENT/REFUSAL FOR 2021-12-08 18:35:08 [facility]igned, No [facility] AND Name Medical Branch TREATMENT ASSIGNMENT OF BENEFITS 2021-10-13 13:51:35 Doctor Unassigned, No [facility] Branch CONSENT/REFUSAL FOR 2021-10-13 13:36:21 Doctor Unassigned, No [facility] AND Name Medical Branch TREATMENT COMP. METABOLIC PANEL 2021-09-23 15:35:00 Sridhar Mata [facility] ([id number] Medical Branch LIPASE 2021-09-23 14:59:00 [facility] CBC WITH DIFF 2021-09-23 14:59:00 [facility] CONSENT/REFUSAL FOR 2021-09-23 14:17:56 Doctor Unassigned, No Un iversity [facility] DIAGNOSIS AND Name Medical Branch TREATMENT Encounters Start End Encounter Admission Attending Care Care Encounter Source Date/Time Date/Time Type Type Clinicians Facility Department ID 2021-12-24 2021-12-24 Emergency X LINSEY AARON ERT [id number] Univers 11:28:00 13:33:00 JAYY busby of [facility] 2021-12-24 2021-12-24 Emergency LINSEY Aaron [id number] Univers 11:28:00 13:33:00 Jayy OWENS [id number] i ty [facility] [id number] [facility] [id number] [place] [id number] Branch 2021-12-08 2021-12-08 Emergency X LINSEY MATA ERT [id number] Univers 12:45:00 14:51:00 SRIDHAR busby [facility] 2021-12-08 2021-12-08 Emergency Singer [facility] [id number] Univers 12:45:00 14:51:00 Sridhar OWENS [id number] i ty of [place] [id number] [facility] [id number] [address] 2021-10-13 2021-10-13 Emergency X CATRACHITO [facility] ERT [id number] Univers 07:44:00 07:58:00 LATHA busby [facility] 2021-10-13 2021-10-13 [facility] [id number] Univers 07:44:00 07:58:00 Latha Rose ROMAN [id number] ity [facility] [id number] [facility] [id number] [address] 2021-09-23 2021-09-23 Emergency X SINGER [facility] ERT [id number] Univers 08:30:00 10:37:00 SRIDHAR busby [facility] 2021-09-23 2021-09-23 Emergency [facility] [id number] Univers 08:30:00 10:37:00 Sridhar ROMAN [id number] i ty of [place] [id number] [facility] [id number] [address] 2020-11-25 2020-11-25 Emergency Kyra Medeiros [facility] [id number] 15:24:00 20:37:00 Pooja Owens [id number] [place] [id number] [place] [address] [id number] [facility] 2020-11-25 2020-11-25 Emergency X [facility] ERT [id number] Univers 15:14:00 15:14:00 itkamari [facility] 2020-10-31 2020-10-31 Emergency Jack Brower [facility] [id number] 09:18:00 12:22:00 Gaby Owens [id number] [place] 4.2.7.2.686 [place] [id number] 2020-10-31 2020-10-31 Emergency X JACK BROWER [facility] ERT [id number] Univers 09:18:00 09:18:00 ity [facility] 2020-09-11 2020-09-11 Emergency Kyra Medeiros [facility] [id number] 14:32:00 16:08:00 Pooja Owens [id number] [place] 4.2.7.2.686 [facility] [id number] 2020-09-11 2020-09-11 Emergency X Kyra MEDEIROS [facility] ERT [id number] Univers 14:32:00 14:32:00 ity [facility] 2020-02-03 2020-02-03 [facility] [id number] 17:08:08 18:20:00 Anjali Roman [id number] [place] 4.2.7.2.686 [facility] [id number] 2020-02-03 2020-02-03 [facility] [id number] Univers 17:00:00 17:00:00 ANJALI ity [facility] 2020-02-03 2020-02-03 Orders Doctor DAVID [id number] 00:00:00 00:00:00 Only Unassigned, ANGIE [id number] [facility] .2.7.2.686 [id number] 2020-01-10 2020-01-11 Emergency [facility] [id number] 23:46:02 01:01:00 Roman [id number] [place] 4.2.7.2.686 [facility] [id number] 2020-01-10 2020-01-10 Emergency X [facility] ERT [id number] Univers 23:02:00 23:02:00 ity [facility] 2019-12-18 2019-12-18 Emergency X Kyra MEDEIROS [facility] ERT [id number] Univers 17:24:37 18:57:00 ity of [facility] 2019-12-18 2019-12-18 Emergency Kyra Medeiros [facility] [id number] 17:24:37 18:57:00 Pooja Owens [id number] [place] 4.2.7.2.686 [place] [id number] [id number] 2019-12-18 2019-12-18 Orders Doctor DAVID [id number] 00:00:00 00:00:00 Only Unassigned, ANGIE [id number] [place] [facility] 4.2.7.2.686 [id number] 2019-06-29 2019-06-29 Emergency Tori, [facility] [id number] 02:13:29 04:06:00 Jose David Owens [id number] [place] 4.2.7.2.686 [place] [id number] Results Test Description Test Time Test Comments Results Result Comments Source COMP. METABOLIC PANEL (40730) 2021-09-23 16:10:10 Test Item Value Reference Range Interpretation Comme nts NA (test code = 7618549420) 135 mmol/L 135-145 K (test code = 7312461982) 4.5 mmol/L 3.5-5.0 CL (test code = 6699909278) 101 mmol/L 98-108 CO2 TOTAL (test code = 28 mmol/L 23-31 [id number]) AGAP (test code = 7708299629) 2-16 BUN (test code = 1796224068) 19 mg/dL 7-23 GLUCOSE (test code = 4134395120) 94 mg/dL 70-110 CREATININE (test code = 0.83 mg/dL 0.50-1.04 9599306180) TOTAL BILI (test code = 0.5 mg/dL 0.1-1.2 5155940369) CALCIUM (test code = 9228557983) 9.9 mg/dL 8.6-10.6 T PROTEIN (test code = 7.6 g/dL 6.3-8.2 3179524332) ALBUMIN (test code = 0872767213) 4.5 g/dL 3.5-5.0 ALK PHOS (test code = 9881222287) 52 U/L 34-122 ALTv (test code = 1742-6) 15 U/L 5-35 AST(SGOT) (test code = 21 U/L 13-40 7166401378) eGFR (test code = 0780579166) mL/min/1.73m2 JASMYN (test code = JASMYN) Association [...] or urine or abnormalities in imaging tests). [facility] Test Item Value Reference Range Interpretation Comments LIPASE (test code = 7319647722) 72 U/L 0-220 Lab Interpretation (test code = Normal 85803-4) [id number] 15:37:27 Test Item Value Reference Range Interpretation Comments WBC (test code = See_Comment [Automated 5090-2) message] The sy stem which generated this [...] RDW-SD (test code = 43.4 fL 39.0-49.9 07779-5) RDW-CV (test code = 14.0 % 12.0-15.5 788-0) PLT (test code = See_Comment H [Automated 777-3) message] The sy stem which generated this result transmitted reference range : 166 - 358 10*3/ ?L. The reference r juliano was not used to interpret this result as normal/abnormal . MPV (test code = 10.4 fL 9.5-12.9 56161-6) NRBC/100 WBC (test See_Comment [Automat ed code = 9928868152) message] The system which generated this result transmitted reference range : 0.0 - 10.0 /100 WBCs. The refer ence range was not u sed to interpret th is result as normal/abnormal . NRBC x10^3 (test code <0.01 See_Comment [Auto mated = 6370208137) message] The s ystem which generated this result transmitted reference range : 10*3/?L. The reference range was not used to interpret this result as normal/abnormal . GRAN MAT (NEUT) % 60.5 % (test code = 770-8) IMM GRAN % (test code 0.30 % = 4075299781) LYMPH % (test code = 28.4 % 736-9) MONO % (test code = 6.4 % 5905-5) EOS % (test code = 3.6 % 713-8) BASO % (test code = 0.8 % 706-2) GRAN MAT x10^3(ANC) 3.71 10*3/uL 1.88-7.09 (test code = 2083519485) IMM GRAN x10^3 (test <0.03 0.00-0.06 code = 7971607820) LYMPH x10^3 (test code 1.74 10*3/uL 1.32-3.29 = 731-0) MONO x10^3 (test code 0.39 10*3/uL 0.33-0.92 = 742-7) EOS x10^3 (test code = 0.22 10*3/uL 0.03-0.39 711-2) BASO x10^3 (test code 0.05 10*3/uL 0.01-0.07 = 704-7) Lab Interpretation Abnormal (test code = 68804-9) [facility]"
--- NOTE | 2022-01-17 14:08 | RAD REPORT ---
EXAM DESCRIPTION: RAD - Chest Single View - 01/17/2022 1:44 pm CLINICAL HISTORY: COUGH COMPARISON: Chest Single View dated 11/19/2021; ABDOMEN ACUTE SERIES dated 07/22/2011; CHEST SINGLE EW dated 11/11/2009 FINDINGS: Lines: None. Lungs: No evidence of edema or pneumonia. Pleural: No significant pleural effusions or pneumothorax. Cardiac: The heart size is within normal limits. Bones: No acute fractures. Other: IMPRESSION: No acute cardiopulmonary disease.
[2022-01-17 15:18] LABS: SARS-COV-2 RT PCR NEGATIVE (NEGATIVE)
--- NOTE | 2022-01-17 15:20 | ER ---
Nurse's Notes [facility] Name: Genesis Hu Age: 31 yrs Sex: Female : 1990 Arrival Date: 01/17/2022 Time: 13:04 Bed 10 Private MD: Diagnosis: Acute upper respiratory infection, unspecified Presentation: 01/17 13:11 Chief complaint: Patient states: cough, shortness of breath, pain with deep inhalation, vg1 and sore throat x 2 days. Denies NVD. Coronavirus screen: Vaccine status: Patient reports being unvaccinated. Client denies travel out of the [place] in the last 14 days. cough unrelated to allergies, headache, shortness of breath, Client presents with at least one sign or symptom that may indicate coronavirus-19. Standard/surgical mask placed on the client. Ebola Screen: Patient negative for fever greater than or equal to 101.5 degrees Fahrenheit, and additional compatible Ebola Virus Disease symptoms. Initial Sepsis Screen: Does the patient meet any 2 criteria? HR > 90 bpm. Does the patient have a suspected source of infection? No. Patient's initial sepsis screen is negative. Risk Assessment: Do you want to hurt yourself or someone else? Patient reports no desire to harm self or others. Onset of symptoms was January 15, 2022. 13:11 Method Of Arrival: Ambulatory vg1 13:11 Acuity: KRISTIN 4 vg1 Triage Assessment: 13:13 General: Appears in no apparent distress. comfortable, Behavior is calm, cooperative. vg1 Pain: Complains of pain in throat. Respiratory: Reports cough that is dry, Onset: The symptoms/episode began/occurred x 2 days ago, the patient has mild shortness of breath. 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 - Social history:: Smoking status: Patient denies any tobacco usage or history of. Screenin:41 Abuse screen: Denies threats or abuse. Nutritional screening: No deficits noted. ss7 Tuberculosis screening: No symptoms or risk factors identified. Fall Risk None identified. Assessment: 14:40 General: Appears in no apparent distress. comfortable, Behavior is calm, cooperative, ss7 appropriate for age. Cardiovascular: Heart tones S1 S2. Cardiovascular: Rhythm is regular. Respiratory: Reports cough that is dry, Airway is patent Respiratory effort is even, unlabored, Breath sounds are clear. GI: No deficits noted. : No deficits noted. EENT: No deficits noted. Vital Signs: 13:11 BP 131 / 75; Pulse 101; Resp 18; Temp 98.8; Pulse Ox 99% ; Weight 83.91 kg; Height 5 vg1 ft. 5 in. (165.10 cm); Pain 4/10; 14:41 BP 121 / 79; Pulse 86; Resp 18; Pulse Ox 99% ; ss7 13:11 Body Mass Index 30.79 (83.91 kg, 165.10 cm) vg1 ED Course: 13:04 Patient arrived in ED. ja2 13:05 Charity Bates FNP-C is [facility]. kb 13:05 Jessica Martines MD is Attending Physician. kb 13:13 Triage completed. vg1 13:13 Arm band placed on. vg1 13:17 Fabiola Gonzáles, RN is Primary Nurse. ss7 13:22 COVID-19/FLU A+B (Document "Date of Onset" if Symptomatic) Sent. ss7 13:44 Chest Single View XRAY In Process Unspecified. EDMS 14:41 Patient has correct armband on for positive identification. Bed in low position. Call ss7 light in reach. Warm blanket given. 14:41 No provider procedures requiring assistance completed. Patient did not have IV access ss7 during this emergency room visit. Administered Medications: No medications were administered Outcome: 15:20 Discharge ordered by . kb 15:22 Discharged to home ambulatory. ss7 15:22 Condition: good 15:22 Discharge instructions given to patient, Instructed on discharge instructions, follow up and referral plans. Demonstrated understanding of instructions, follow-up care. 15:29 Patient left the ED. ss7 Signatures: Dispatcher [employer] EDMS Charity Bates, EDI COORDINATOR-C SHAJI-Rosalind Villar, RN RN vg1 Valentina Rodriguez Shana, RN RN ss7
--- NOTE | 2022-01-17 15:20 | EDPHYS ---
Physician Documentation [facility] Name: Genesis Hu Age: 31 yrs Sex: Female : 1990 Arrival Date: 01/17/2022 Time: 13:04 Bed 10 Private MD: ED Physician Jessica Martines HPI: 01/17 13:42 This 31 yrs old Female presents to ER via Ambulatory with complaints of Cough, kb Shortness Of Breath. 13:42 The patient or guardian reports cough, that is intermittent, described as mild, kb difficulty breathing. The patient has not experienced similar symptoms in the past. 13:43 Onset: The symptoms/episode began/occurred 2 day(s) ago. Severity of symptoms: At their kb worst the symptoms were mild, moderate, in the emergency department the symptoms are unchanged. Modifying factors: The symptoms are alleviated by nothing, the symptoms are aggravated by nothing. Associated signs and symptoms: The patient has no apparent associated signs or symptoms. The patient has not recently seen a physician. cough and shortness of breath for 2 dAYS. 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 - Social history:: Smoking status: Patient denies any tobacco usage or history of. ROS: 13:42 Constitutional: Negative for fever, chills, and weight loss. kb 13:42 Respiratory: Positive for cough, shortness of breath, Negative for dyspnea on exertion, hemoptysis, orthopnea, pleurisy, sputum production, wheezing. 13:42 All other systems are negative. Exam: 13:42 Constitutional: This is a well developed, well nourished patient who is awake, alert, kb and in no acute distress. Head/Face: Normocephalic, atraumatic. ENT: Moist Mucous membranes Cardiovascular: Regular rate and rhythm with a normal S1 and S2. No gallops, murmurs, or rubs. No pulse deficits. Respiratory: Respirations even and unlabored. No increased work of breathing. Talking in full sentences Skin: Warm, dry with normal turgor. Normal color. MS/ Extremity: Pulses equal, no cyanosis. Neurovascular intact. Full, normal range of motion. Neuro: Awake and alert, GCS 15, oriented to person, place, time, and situation. Moves all extremities. Normal gait. Psych: Awake, alert, with orientation to person, place and time. Behavior, mood, and affect are within normal limits. Vital Signs: 13:11 BP 131 / 75; Pulse 101; Resp 18; Temp 98.8; Pulse Ox 99% ; Weight 83.91 kg; Height 5 vg1 ft. 5 in. (165.10 cm); Pain 4/10; 14:41 BP 121 / 79; Pulse 86; Resp 18; Pulse Ox 99% ; ss7 13:11 Body Mass Index 30.79 (83.91 kg, 165.10 cm) vg1 MDM: 13:19 Patient medically screened. kb 13:42 Data reviewed: vital signs, nurses notes. Data interpreted: Pulse oximetry: on room air kb is 99 %. Interpretation: normal. 15:19 Counseling: I had a detailed discussion with the patient and/or guardian regarding: the kb historical points, exam findings, and any diagnostic results supporting the discharge/admit diagnosis, lab results, radiology results, the need for outpatient follow up, a family practitioner, to return to the emergency department if symptoms worsen or persist or if there are any questions or concerns that arise at home. 01/17 13:06 Order name: COVID-19/FLU A+B (Document "Date of Onset" if Symptomatic); Complete Time: kb 15:19 01/17 13:06 Order name: Chest Single View XRAY; Complete Time: 14:13 kb Administered Medications: No medications were administered Disposition Summary: 01/17/22 15:20 Discharge Ordered Location: Home kb Condition: Stable kb Diagnosis - Acute upper respiratory infection, unspecified kb Followup: kb - With: Emergency Department - When: As needed - Reason: Worsening of condition Followup: kb - With: Private Physician - When: 2 - 3 days - Reason: Recheck today's complaints, Continuance of care, Re-evaluation by your physician Discharge Instructions: - Discharge Summary Sheet kb - Upper Respiratory Infection, Adult, [id number] kb - Viral Respiratory Infection, [id number] kb Forms: - Medication Reconciliation Form kb - Thank You Letter kb - Antibiotic Education kb - Prescription Opioid Use kb Signatures: Dispatcher [employer] Charity Frazier, SHAJI-C Rosalind Claros, RN RN vg1
[2022-01-17 15:41] VITALS: TEMP 98.8; O2SAT 99
[2022-01-17 15:43] VITALS: BP 121/79
== END 2022-01-17 15:29 | disposition home or self-care (01) ==
LOC: ER 12:52
DX: J06.9 Acute upper respiratory infection, unspecified (principal); Z20.822 Contact with and (suspected) exposure to COVID-19; Z88.0 Allergy status to penicillin; Z88.1 Allergy status to other antibiotic agents; Z91.040 Latex allergy status; Z91.048 Other nonmedicinal substance allergy status
CPT/HCPCS: 0240U; 71045; 99283

== ENCOUNTER 2022-02-19 16:39 | Emergency (ER) | payer OTHER, SELFPAY ==
--- OUTSIDE RECORDS SUMMARY | 2022-02-19 16:43 | XMS REPORT | Continuity of Care Document ---
:1990 Author Organization [facility] t Address [address] [place] [address] Care Team Providers Name Role Phone PCP, [...] Policy Number Effective Date Expiration Date S [facility] MEDICAID PENDING PENDING 2021 00:00:00 Problems Condition Condition Condition Status Onset Resolution Last Treating Co mments Source Name Details Category Date Date Treatment Clinician Date Abdominal Abdominal Disease Active Overview: Univers pain pain 07-28 Formattin ity of 00:00: g of this [place] note Medical might be Branch different from the original. 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 1 hr- 47 Immune to Immune to Disease Active Uni vers varicella varicella 07-05 ity of 00:00: [place] 00 Medical Branch High-risk High-risk Disease Active Overview: Univers 06-30 Formattin i ty of 00:00: g of this [place] note Medical might be Branch different from the original. Medical records received. [facility]. DOS- 0. CC: 30 weeks w/ twins, vomiting black liquid. No evidence of hepatitis , pancreati tis, or liver dysfuncti on. Physiolog ic anemia. No UTI or ketonuria . 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 Medical records- 0- IUP at 33 weeks. Dichorion ic, diamnioti c twin gestation . presentat ion Vertex and transvers e. PTL. Primary low transvers e via Pfannenst iel incision. Right dermoid cystectom y. Bipolar Bipolar Disease Active Univers disorder disorder 06-30 ity of 00:00: [place] 00 Medical Branch Family Family Disease Active Overview: Univer s history of history of 06-30 Formattin ity of congenital congenital 00:00: g of this [place] anomalies anomalies 00 note Medi denzel might be Branch different from the original. Detailed US and Genetics. Mother born with spinal bifida ocarta and hole in the heart and born with heart murmur History of History of Disease Active Overview : Univers 06-30 Formattin ity o f labor labor 00:00: g of this [place] 00 note Medical might be Branch different from the original. Delivered at 28 week via for PTL -Twins. Send to [facility] at 16 weeks Pain Pain Disease Active Univers pelvic pelvic 8-30 ity of 00:00: [place] 00 Medical Branch Rubella Rubella Disease Active Univers immune immune 06-30 ity of 00:00: [place] 00 Medical [...] 2-14 ity of adverse 00:00: [place] reaction Medical s Branch BEE DRUG Active Unknown-Cmnt Univ ers POLLEN INGREDI 1-31 ity of 00:00: [place] 00 Medical Branch Bee Propensi Active Unknown - Unive rs Pollen ty to See comments 1-31 ity of adverse 00:00: [place] reaction Medical s Branch Social History Social Habit Start Date Stop Date Quantity Comments Source Exposure to Not sure [facility] SARS-CoV-2 [place] Medical (event) Branch Alcohol intake 2021-10-13 2021-10-13 Current [facility] 00:00:00 00:00:00 non-drinker of [facility] alcohol Branch (finding) Tobacco use and 2013-06-30 2013-06-30 Never used Universit y of exposure 00:00:00 00:00:00 [facility] Sex Ass[birth year] At [birth year] Universit y of 00:00:00 00:00:00 [facility] Smoking Status Start Date Stop Date Source Never smoker [facility] Branch Medications Ordered Filled Start Stop Current Ordering Indication Dosage Frequency Signature Comments Components Source Medication Medication Date Date Medication? Clinician (SIG) Name Name clarithromkamari Yes [id number] 500mg Take 1 Univers dominique 500 mg 2-23 tablet by ity of tablet 00:00: mouth [place] 00 every 12 Medical (twelve) Branch hours. pantoprazol Yes [id number] 40mg Take 1 Univers e 40 mg EC 2-23 tablet by ity of tablet 00:00: mouth [place] 00 daily. Medical Branch sucralfate 2021- Yes [id number] 1g Take 1 Univers 1 gram 2-21 01-26 tablet by ity of tablet 00:00: 04:59 mouth [place] 00 :00 before Medical meals and Branch at bedtime for 30 days. metroNIDAZO 2021- Yes [id number] 500mg Take 1 Univers LE 500 mg 2-23 03-10 tablet by ity of tablet 00:00: 05:59 mouth [place] 00 :00 every 8 Medical (eight) Branch hours for 14 days. sucralfate 2021- No [id number] 1g Take 1 Univers 1 gram 2-23 - tablet by ity of tablet 00:00: 00:00 mouth [place] 00 :00 before Medical meals and Branch at bedtime. maalox:diph 2021- No 15mL 15 mL, Uni vers enhydrAMINE 2-07 02-07 Oral, ity of :lidocaine 21:30: 20:30 ONCE, 1 [place] as 2 % viscous 00 :00 dose, On Medi denzel 1:1:1 12/08/21 Branch ([facility] at 1530, [facility]) Routine oral suspension 15 mL sucralfate Yes [id number] 1g Take 1 U nivers 1 gram 2-07 tablet by ity of tablet 00:00: mouth [place] 00 before Medical meals and Branch at bedtime. dicyclomine Yes [id number] 10mg Take 1 Univers (BENTYL) 10 2-07 capsule by it y of mg capsule 00:00: mouth [place] 00 every 8 Medical (eight) Branch hours as needed for Abdominal pain. ondansetron Yes [id number] 4mg Take 1 Univers 4 mg 2-07 tablet by ity of disintegrat 00:00: mouth [place] ing tablet 00 every 8 Medica l (eight) Branch hours as needed for Nausea and Vomiting (N/V). dicyclomine Yes [id number] 10mg Take 1 Univers (BENTYL) 10 2-07 capsule by it y of mg capsule 00:00: mouth [place] 00 every 8 Medical (eight) Branch hours as needed for Abdominal pain. ondansetron Yes [id number] 4mg Take 1 Univers 4 mg 2-07 tablet by ity of disintegrat 00:00: mouth [place] ing tablet 00 every 8 Medica l (eight) Branch hours as needed for Nausea and Vomiting (N/V). omeprazole 2021- Yes [id number] 20mg Take 1 Univers 20 mg 2-07 03-10 capsule by ity of capsule 00:00: 05:59 mouth [place] 00 :00 daily for Medical 30 days. Branch omeprazole 2021- Yes [id number] 20mg Take 1 Univers 20 mg 2-07 03-10 capsule by ity of capsule 00:00: 05:59 mouth [place] 00 :00 daily for Medical 30 days. Branch sucralfate 2021- No [id number] 1g Take 1 Univers 1 gram 2-07 -23 tablet by ity of tablet 00:00: 00:00 mouth [place] 00 :00 before Medical meals and Branch at bedtime. bismuth-met 2021- Yes [id number] 3{capsu Take 3 Univers ronidazole- 2-07 -22 le} capsules ity of tetracyclin 00:00: 05:59 by mouth [place] e 00 :00 before Medical 140-125-125 meals and Bra nch mg per at bedtime capsule for 14 days. pantoprazol 2020-11 Yes [id number] 40mg Take 1 Univers e 2-13 tablet by ity of (PROTONIX) 00:00: mouth [place] 40 mg EC 00 daily. Medical tablet Branch pantoprazol 2020-11 Yes [id number] 40mg Take 1 Univers e 2-13 tablet by ity of (PROTONIX) 00:00: mouth [place] 40 mg EC 00 daily. Medical tablet Branch pantoprazol 2020-11- No [id number] 40mg Take 1 Univers e 2-13 02-23 tablet by ity of (PROTONIX) 00:00: 00:00 mouth [place] 40 mg EC 00 :00 daily. Medical tablet Branch sucralfate 2020-11- No [id number] 1g Take 1 Univers 1 gram 2-13 01-13 tablet by ity of tablet 00:00: 05:59 mouth [place] 00 :00 before Medical meals and Branch at bedtime for 30 days. dicyclomine 2020-11 Yes 10mg 10 mg, Univ ers (BENTYL) 1-23 Oral, QID, ity o f capsule 10 18:00: First dose [place] mg 00 on [facility] 09/23/21 Branch at 1200, Until Discontinu ed, Routine sucralfate 2020-11 Yes 1g 1 g, Oral, U nivers (CARAFATE) 11-23 AC+HS, ity of tablet 1 g 17:30: First dose [place] 00 on [facility] 09/23/21 Branch at 1130, Until Discontinu ed, Routine pantoprazol 2020-11 40mg 40 mg, Uni vers e 11-23 Slow IV ity of (PROTONIX) 15:45: 15:00 Push, [place] injection 00 :00 ONCE, 1 Medical 40 mg dose, On Branch [facility] 09/23/21 at 0945 dicyclomine 2020-11 Yes [id number] 10mg Take 1 Univers (BENTYL) 10 1-23 capsule by it y of mg capsule 00:00: mouth [place] 00 every 8 Medical (eight) Branch hours as needed for Abdominal pain. ondansetron 2020-11 Yes [id number] 4mg Take 1 Univers 4 mg 1-23 tablet by ity of disintegrat 00:00: mouth [place] ing tablet 00 every 8 Medica l (eight) Branch hours as needed for Nausea and Vomiting (N/V). sucralfate 2020-11 Yes [id number] 1g Take 1 U nivers 1 gram 1-23 tablet by ity of tablet 00:00: mouth [place] 00 before Medical meals and Branch at bedtime. dicyclomine 2020-11 Yes [id number] 10mg Take 1 Univers (BENTYL) 10 1-23 capsule by it y of mg capsule 00:00: mouth [place] 00 every 8 Medical (eight) Branch hours as needed for Abdominal pain. ondansetron 2020-11 Yes [id number] 4mg Take 1 Univers 4 mg 1-23 tablet by ity of disintegrat 00:00: mouth [place] ing tablet 00 every 8 Medica l (eight) Branch hours as needed for Nausea and Vomiting (N/V). pantoprazol 2020-11 Yes [id number] 40mg Take 1 Univers e -23 tablet by ity of (PROTONIX) 00:00: mouth [place] 40 mg EC 00 daily. Medical tablet Branch dicyclomine 2020-11- No [id number] 10mg Take 1 Univers (BENTYL) 10 11-23- capsule by i ty of mg capsule 00:00: 00:00 mouth [place] 00 :00 every 8 Medical (eight) Branch hours as needed for Abdominal pain. ondansetron 2020-11- No [id number] 4mg Take 1 Univers 4 mg 11-23 tablet by ity of disintegrat 00:00: 00:00 [place] ing tablet 00 :00 every 8 Medica l (eight) Branch hours as needed for Nausea and Vomiting (N/V). sucralfate 2020-11- No [id number] 1g Take 1 Univers 1 gram 11-23 12-13 tablet by ity of tablet 00:00: 00:00 mouth [place] 00 :00 before Medical meals and Branch at bedtime. pantoprazol 2020-11- No [id number] 40mg Take 1 Univers e 11-23 12-13 tablet by ity of (PROTONIX) 00:00: 00:00 mouth [place] 40 mg EC 00 :00 daily. Medical tablet Branch ciprofloxac Yes [id number] 500mg Take 1 Univers in HCl 500 1-25 tablet by ity of mg tablet 00:00: mouth 2 [place] 00 (two) Medical times Branch daily. ciprofloxac 2020- No [id number] 500mg Take 1 Univers in HCl 500 1-25 12-13 tablet by ity of mg tablet 00:00: 00:00 mouth 2 [place] 00 :00 (two) Medical times Branch daily. ondansetron 2020- No [id number] 4mg Take 1 Univers (ZOFRAN 11-25-23 tablet by ity of ODT) 4 mg 00:00: 00:00 mouth [place] disintegrat 00 :00 every 8 Medic al ing tablet (eight) Branch hours as needed for Nausea and Vomiting (N/V). cyclobenzap 2019-11 Yes [id number] 10mg Take 1 Univers rine 10 mg 1-11 tablet by ity of tablet 00:00: mouth 3 [place] 00 (three) Medical times Branch daily. cyclobenzap 2020- Yes [id number] 10mg Take 1 Univers rine 10 mg 1-11 tablet by ity of tablet 00:00: mouth 3 [place] 00 (three) Medical times Branch daily. cyclobenzap 2020- Yes [id number] 10mg Take 1 Univers rine 10 mg 1-11 tablet by ity of tablet 00:00: mouth 3 [place] 00 (three) Medical times Branch daily. ibuprofen 2019- Yes [id number] 600mg Take 1 Univers 600 mg 1-11 tablet by ity of tablet 00:00: mouth [place] 00 every 6 Medical (six) Branch hours as needed for Pain (scale 4-6). cyclobenzap 2019- Yes [id number] 10mg Take 1 Univers rine 10 mg 1-11 tablet by ity of tablet 00:00: mouth 3 [place] 00 (three) Medical times Branch daily. ibuprofen 2019-11- No [id number] 600mg Take 1 Univers 600 mg 1-11 [...] Branch OLIC ACID ORAL) bromphenira 2020-0 Yes [id number] 5mL Take 5 mL Univers mine-pseudo 4-04 by mouth 4 it y of ephedrine-D 00:00: (four) [place] (BROMFED 00 times Medical DM) 2-30-10 daily as Bran ch mg/5 mL needed for syrup Congestion /Allergies or Cough. bromphenira 2020-0 Yes [id number] 5mL Take 5 mL Univers mine-pseudo 4-04 by mouth 4 it y of ephedrine-D 00:00: (four) [place] (BROMFED 00 times Medical DM) 2-30-10 daily as Bran ch mg/5 mL needed for syrup Congestion /Allergies or Cough. bromphenira 2020-0 Yes [id number] 5mL Take 5 mL Univers mine-pseudo 4-04 by mouth 4 it y of ephedrine-D 00:00: (four) [place] (BROMFED 00 times Medical DM) 2-30-10 daily as Bran ch mg/5 mL needed for syrup Congestion /Allergies or Cough. methylPREDN 2020-0 Yes [id number] Take by Univers ISolone 4 4-04 mouth ity of mg tablets 00:00: SEE-INSTRU [place] 00 CTIONS. Medical follow Branch package directions levoFLOXaci 2020-0 Yes [id number] 500mg Take 1 Univers n 4-04 tablet by ity of (LEVAQUIN) 00:00: mouth [place] 500 mg 00 every 24 Medical tablet ([facility]- Branch ur) hours. bromphenira 2020-0 Yes [id number] 5mL Take 5 mL Univers mine-pseudo 4-04 by mouth 4 it y of ephedrine-D 00:00: (four) [place] M (BROMFED 00 times Medical DM) 2-30-10 daily as Bran ch mg/5 mL needed for syrup Congestion /Allergies or Cough. methylPREDN 2020-0 1- No [id number] Take by Univers ISolone 4 4-04 12-13 mouth ity of mg tablets 00:00: 00:00 SEE-INSTRU [place] 00 :00 CTIONS. Medical follow Branch package directions levoFLOXaci 2020-0 2021- No [id number] 500mg Take 1 Univers n 4-04 12-13 tablet by ity of (LEVAQUIN) 00:00: 00:00 mouth [place] 500 mg 00 :00 every 24 Medical tablet (twenty-fo Branch ur) hours. Immunizations Ordered Filled Immunization Date Status Comments [facility] e Immunization Name Name Td 2016-04-30 Completed University of 00:00:00 [place] [facility] Td 2016-04-30 Completed University of 00:00:00 [place] [facility] Td 2016-04-30 Completed University of 00:00:00 [place] [facility] Td 2016-04-30 Completed University of 00:00:00 [place] [facility] Rubella 2010-04-22 Completed University of 00:00:00 [place] [facility] Rubella 2010-04-22 Completed University of 00:00:00 [place] [facility] Rubella 2010-04-22 Completed University of 00:00:00 [place] [facility] Rubella 2010-04-22 Completed University of 00:00:00 [place] [facility] Td 2006-06-30 Completed University of 00:00:00 [place] [facility] Td 2006-06-30 Completed University of 00:00:00 [place] [facility] Td 2006-06-30 Completed University of 00:00:00 [place] [facility] Td 2006-06-30 Completed University of 00:00:00 [facility] Vital Signs Vital Name Observation Time Observation Value Comments Source Systolic blood 2021-12-24 17:26:00 147 mm[Hg] Univer sity of pressure [facility] Diastolic blood 2021-12-24 17:26:00 80 mm[Hg] Unive rsity of [facility] Heart rate 2021-12-24 17:26:00 71 /min [facility] Body temperature 2021-12-24 17:26:00 36.17 [place] [facility] Respiratory rate 2021-12-24 17:26:00 18 /min [facility] Body weight 2021-12-24 17:26:00 86.183 kg [facility] BMI 2021-12-24 17:26:00 29.76 kg/m2 [facility] Oxygen saturation in 2021-12-24 17:26:00 99 /min University Arterial blood by [facility] Pulse oximetry Branch Systolic blood 2021-12-08 18:45:00 131 mm[Hg] Univer sity of pressure [facility] Diastolic blood 2021-12-08 18:45:00 91 mm[Hg] Unive rsity of pressure [facility] Heart rate 2021-12-08 18:45:00 86 /min [facility] Body temperature 2021-12-08 18:45:00 36.72 [place] [facility] ers[facility] [place] [facility] Respiratory rate 2021-12-08 18:45:00 18 /min Univ ersity [facility] [place] [facility] Body weight 2021-12-08 18:45:00 86.183 kg Universi ty of [place] [facility] BMI 2021-12-08 18:45:00 29.76 kg/m2 Universi ty of [place] [facility] Oxygen saturation in 2021-12-08 18:45:00 98 /min University of Arterial blood by [place] Medi denzel Pulse oximetry Branch Systolic blood 2021-10-13 13:42:00 123 mm[Hg] Univer sity of pressure [place] [facility] Diastolic blood 2021-10-13 13:42:00 78 mm[Hg] Unive rsity of pressure [place] [facility] Heart rate 2021-10-13 13:42:00 86 /min Universi ty of [place] [facility] Body temperature 2021-10-13 13:42:00 36.78 [place] Univ ersity of [place] [facility] Respiratory rate 2021-10-13 13:42:00 18 /min Univ ersity of [place] [facility] Body weight 2021-10-13 13:42:00 86.183 kg Universi ty of [place] [facility] BMI 2021-10-13 13:42:00 29.76 kg/m2 Universi ty of [place] [facility] Oxygen saturation in 2021-10-13 13:42:00 98 /min University of Arterial blood by [place] Medi denzel Pulse oximetry Branch Systolic blood 2021-09-23 16:00:00 128 mm[Hg] Univer sity of pressure [place] [facility] Diastolic blood 2021-09-23 16:00:00 79 mm[Hg] Unive rsity of pressure [place] [facility] Heart rate 2021-09-23 16:00:00 79 /min Universi ty of [place] [facility] Body temperature 2021-09-23 16:00:00 36.72 [place] Univ ersity of [place] [facility] Oxygen saturation in 2021-09-23 16:00:00 100 /min University of Arterial blood by [place] Medi denzel Pulse oximetry Branch Respiratory rate 2021-09-23 14:25:00 18 /min Univ ersity of [place] [facility] Body height 2021-09-23 14:25:00 170.2 cm Universi ty of [place] [facility] Body weight 2021-09-23 14:25:00 86.183 kg Universi ty [facility] BMI 2021-09-23 14:25:00 29.76 kg/m2 [facility] Procedures Procedure Date / Time Performed Performing Clinician [facility] e CONSENT/REFUSAL FOR 2021-12-24 17:15:06 Doctor Unassigned, No Un iversity of [place] DIAGNOSIS AND Name Medical Branch TREATMENT NOTICE OF PRIVACY 2021-12-08 18:35:32 [facility] Branch CONSENT/REFUSAL FOR 2021-12-08 18:35:08 Doctor Unassigned, No Un iversity [facility] DIAGNOSIS AND [facility] Medical Branch TREATMENT ASSIGNMENT OF BENEFITS 2021-10-13 13:51:35 Doctor Unassigned, No [facility] Branch CONSENT/REFUSAL FOR 2021-10-13 13:36:21 Doctor Unassigned, No Un iversity [facility] DIAGNOSIS AND Name Medical Branch TREATMENT COMP. METABOLIC PANEL 2021-09-23 15:35:00 MataSridhar trinh [facility] ([id number]) Medical Branch LIPASE 2021-09-23 14:59:00 [facility] CBC WITH DIFF 2021-09-23 14:59:00 [facility] CONSENT/REFUSAL FOR 2021-09-23 14:17:56 Doctor Unassigned, No Un iversity of [place] DIAGNOSIS AND [facility] Medical Branch TREATMENT Encounters Start End Encounter Admission Attending Care Care Encounter Source Date/Time Date/Time Type Type Clinicians Facility Department ID 2021-12-24 2021-12-24 Emergency X LINSEY AARON ERT [id number] Univers 11:28:00 13:33:00 JAYY busby [facility] 2021-12-24 2021-12-24 Emergency LINSEY Aaron [id number] Univers 11:28:00 13:33:00 Jayy OWENS [id number] i ty [facility] [id number] [facility] [id number] [place] [id number] Branch 2021-12-08 2021-12-08 Emergency X LINSEY MATA ERT [id number] Univers 12:45:00 14:51:00 SRIDHAR busby [facility] 2021-12-08 2021-12-08 Emergency [facility] [id number] Univers 12:45:00 14:51:00 Sridhar DENTONMIKKI [id number] i ty of [place] [id number] [facility] [id number] [address] 2021-10-13 2021-10-13 Emergency X CATRACHITO [facility] ERT [id number] Univers 07:44:00 07:58:00 LATHA busby [facility] 2021-10-13 2021-10-13 Emergency [facility] [id number] Univers 07:44:00 07:58:00 Latha J ROMAN [id number] ity [facility] [id number] [facility] [id number] [address] 2021-09-23 2021-09-23 Emergency X [facility] ERT [id number] Univers 08:30:00 10:37:00 SRIDHAR busby [facility] 2021-09-23 2021-09-23 Emergency [facility] [id number] Univers 08:30:00 10:37:00 Sridhar OWNES [id number] i ty of [place] [id number] [facility] [id number] [address] 2020-11-25 2020-11-25 Emergency Kyra Medeiros [facility] [id number] 15:24:00 20:37:00 Pooja Owens [id number] [place] [id number] [place] [address] [id number] [facility] 2020-11-25 2020-11-25 Emergency X [facility] ERT [id number] Univers 15:14:00 15:14:00 itkamari [facility] 2020-10-31 2020-10-31 Emergency Jack Brower [facility] [id number] 09:18:00 12:22:00 Gaby Owens [id number] [place] 4.2.7.2.686 [place] [id number] 2020-10-31 2020-10-31 Emergency X JACK BROWER [facility] ERT [id number] Univers 09:18:00 09:18:00 ity of [facility] 2020-09-11 2020-09-11 Emergency Kyra Medeiros [facility] [id number] 14:32:00 16:08:00 Pooja Roman [id number] [place] 4.2.7.2.686 [place] [id number] [id number] 2020-09-11 2020-09-11 Emergency X Kyra MEDEIROS [facility] ERT [id number] Univers 14:32:00 14:32:00 ity of [facility] 2020-02-03 2020-02-03 Emergency [facility] [id number] 17:08:08 18:20:00 Anjali Owens [id number] [place] 4.2.7.2.686 [place] [id number] 084 2020-02-03 2020-02-03 Emergency [facility]RT [id number] Univers 17:00:00 17:00:00 ANJALI ity of [facility] 2020-02-03 2020-02-03 Orders Doctor DAVID [id number] 00:00:00 00:00:00 Only Unassigned, ANGIE [id number] [facility] .2.7.2.686 [id number] 2020-01-10 2020-01-11 Emergency [facility] [id number] 23:46:02 01:01:00 Tebbetts [id number] [place] 4.2.7.2.686 [place] [id number] 084 2020-01-10 2020-01-10 Emergency X [facility] ERT [id number] Univers 23:02:00 23:02:00 ity of [facility] 2019-12-18 2019-12-18 Emergency X Kyra MEDEIROS [facility] ERT [id number] Univers 17:24:37 18:57:00 ity of [facility] 2019-12-18 2019-12-18 Emergency Kyra Medeiros [facility] [id number] 17:24:37 18:57:00 Pooja Owens [id number] [place] 4.2.7.2.686 [place] [id number] 084 2019-12-18 2019-12-18 Orders Doctor DAVID [id number] 00:00:00 00:00:00 Only Unassigned, ANGIE [id number] [place] [facility] 4.2.7.2.686 [id number] 2019-06-29 2019-06-29 Emergency Tori, [facility] [id number] 02:13:29 04:06:00 Jose David Owens [id number] [place] [id number] [place] [id number] Results Test Description Test Time Test Comments Results Result Comments Source COMP. METABOLIC PANEL (05658) 2021-09-23 16:10:10 Test Item Value Reference Range Interpretation Comme nts NA (test code = 2439860512) 135 mmol/L 135-145 K (test code = 0772226364) 4.5 mmol/L 3.5-5.0 CL (test code = 6218641777) 101 mmol/L 98-108 CO2 TOTAL (test code = 28 mmol/L 23-31 0709904023) AGAP (test code = 4524266902) 2-16 BUN (test code = 6160732426) 19 mg/dL 7-23 GLUCOSE (test code = 1423003800) 94 mg/dL 70-110 CREATININE (test code = 0.83 mg/dL 0.50-1.04 4751756371) TOTAL BILI (test code = 0.5 mg/dL 0.1-1.5 0772267345) CALCIUM (test code = 2046199332) 9.9 mg/dL 8.6-10.6 T PROTEIN (test code = 7.6 g/dL 6.3-8.2 0993002208) ALBUMIN (test code = 9300345031) 4.5 g/dL 3.5-5.0 ALK PHOS (test code = 5715161964) 52 U/L 34-122 ALTv (test code = 1742-6) 15 U/L 5-35 AST(SGOT) (test code = 21 U/L 13-40 6265375633) eGFR (test code = 0636583034) mL/min/1.73m2 JASMYN (test code = JASMYN) Association [...] or urine or abnormalities in imaging tests). [facility]35 Test Item Value Reference Range Interpretation Comments LIPASE (test code = 3145275701) 72 U/L 0-220 Lab Interpretation (test code = Normal 77240-7) [facility] [id number] 15:37:27 Test Item Value Reference Range Interpretation Comments WBC (test code = See_Comment [Automated 5590-2) message] The sy stem which generated this [...] RDW-SD (test code = 43.4 fL 39.0-49.9 27527-9) RDW-CV (test code = 14.0 % 12.0-15.5 788-0) PLT (test code = See_Comment H [Automated 777-3) message] The sy stem which generated this result transmitted reference range : 166 - 358 10*3/ ?L. The reference r juliano was not used to interpret this result as normal/abnormal . MPV (test code = 10.4 fL 9.5-12.9 13766-1) NRBC/100 WBC (test See_Comment [Automat ed code = 0404250441) message] The system which generated this result transmitted reference range : 0.0 - 10.0 /100 WBCs. The refer ence range was not u sed to interpret th is result as normal/abnormal . NRBC x10^3 (test code <0.01 See_Comment [Auto mated = [id number]) message] The s ystem which generated this result transmitted reference range : 10*3/?L. The reference range was not used to interpret this result as normal/abnormal . GRAN MAT (NEUT) % 60.5 % (test code = 770-8) IMM GRAN % (test code 0.30 % = 1194128797) LYMPH % (test code = 28.4 % 736-9) MONO % (test code = 6.4 % 5905-5) EOS % (test code = 3.6 % 713-8) BASO % (test code = 0.8 % 706-2) GRAN MAT x10^3(ANC) 3.71 10*3/uL 1.88-7.09 (test code = 3938807179) IMM GRAN x10^3 (test <0.03 0.00-0.06 code = 8021453841) LYMPH x10^3 (test code 1.74 10*3/uL 1.32-3.29 = 731-0) MONO x10^3 (test code 0.39 10*3/uL 0.33-0.92 = 742-7) EOS x10^3 (test code = 0.22 10*3/uL 0.03-0.39 711-2) BASO x10^3 (test code 0.05 10*3/uL 0.01-0.07 = 704-7) Lab Interpretation Abnormal (test code = 21119-2) [facility]"
[2022-02-19] MEDS ORDERED: MORPHINE 4 MG/ML SYR ONE (17:20)
[2022-02-19] MEDS ORDERED: ONDANSETRON 4 MG/2 ML VIAL ONE (17:20)
[2022-02-19] MEDS ORDERED: FAMOTIDINE 20 MG/2 ML VIAL IV ONE (17:20)
[2022-02-19 17:42] LABS: Urine Blood 3+ (Negative); Urine Glucose Negative (Negative); Urine Protein 2+ (Negative); Urine Specific Gravity >=1.030 (1.005-1.030); Urine pH 6.5 (5.0-7.0)
[2022-02-19 17:53] LABS: Absolute Lymphocytes (CBC) 2.3 K/uL (0.7-4.9); Hematocrit 36.9 % (36.0-45.0); Lymphocytes % 25.3 % (15.3-44.8); MPV 8.2 fL (7.6-11.3); RBC Red Blood Cell Count 4.81 M/uL (3.86-4.86)
[2022-02-19 18:04] LABS: Albumin 4.2 g/dL (3.4-5.0); Bilirubin Total 0.4 mg/dL (0.2-1.0); Protein, Total 8.1 g/dL (6.4-8.2)
[2022-02-19 18:45] LABS: Urine Bacteria <20 /HPF (<20); Urine Mucus 1+ /HPF (NONE SEEN); Urine RBC TNTC /HPF (NONE SEEN)
[2022-02-19] MEDS ORDERED: MORPHINE 2 MG/ML SYR ONE (18:52)
[2022-02-19] MEDS ORDERED: NA CHLORIDE 0.9% 500 ML ONE (18:52)
--- NOTE | 2022-02-19 19:27 | RAD REPORT ---
EXAM DESCRIPTION: CT - Abdomen Pelvis W Contrast - 02/19/2022 7:18 pm CLINICAL HISTORY: Abdominal pain COMPARISON: 2020 TECHNIQUE: Computed axial tomography of the abdomen pelvis was obtained. 100 cc Isovue-300 was admin istered intravenously. Oral contrast was not requested which limits evaluation of bowel. All CT scans are performed using dose optimization technique as appropriate and may include automated exposure control or mA/KV adjustment according to patient size. FINDINGS: The liver, spleen, pancreas, adrenal and kidneys appear unremarkable. There is no evidence of diverticulitis. Normal appendix. No adnexal mass. Small hiatal hernia IMPRESSION: No acute abnormality is displayed.
--- NOTE | 2022-02-19 19:46 | ER ---
Nurse's Notes [facility] Name: Genesis Hu Age: 31 yrs Sex: Female : 1990 Arrival Date: 02/19/2022 Time: 16:40 Bed 13 Private MD: Diagnosis: Abdominal pain, Generalized Presentation: 02/19 16:43 Chief complaint: Patient states: I am having severe abdominal pain and im also having ab2 vaginal bleeding and my period isn't for 3 weeks. Coronavirus screen: Vaccine status: Patient reports being unvaccinated. Client denies travel out of the [place] in the last 14 days. At this time, the client does not indicate any symptoms associated with coronavirus-19. Ebola Screen: Patient negative for fever greater than or equal to 101.5 degrees Fahrenheit, and additional compatible Ebola Virus Disease symptoms Patient denies exposure to infectious person. Patient denies travel to an Ebola-affected area in the 21 days before illness onset. No symptoms or risks identified at this time. Initial Sepsis Screen: Does the patient meet any 2 criteria? No. Patient's initial sepsis screen is negative. Does the patient have a suspected source of infection? No. Patient's initial sepsis screen is negative. Risk Assessment: Do you want to hurt yourself or someone else? Patient reports no desire to harm self or others. Onset of symptoms is unknown. 16:43 Method Of Arrival: Ambulatory ab2 16:43 Acuity: KRISTIN 3 ab2 Triage Assessment: 16:45 General: Appears in no apparent distress. uncomfortable, Behavior is calm, cooperative, ab2 appropriate for age. Pain: Complains of pain in abdomen. Neuro: Level of Consciousness is awake, alert, obeys commands, Oriented to person, place, time, situation, Appropriate for age. Respiratory: Airway is patent Respiratory effort is even, unlabored, Respiratory pattern is regular, symmetrical. GI: Reports lower abdominal pain, upper abdominal pain, nausea. : Reports vaginal bleeding that is. 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 - Social history:: Smoking status: Patient denies any tobacco usage or history of. Screenin:42 Abuse screen: Denies threats or abuse. Denies injuries from another. Nutritional jg9 screening: No deficits noted. Tuberculosis screening: No symptoms or risk factors identified. Fall Risk Fall in past 12 months (25 points). Assessment: 17:44 GI: Bowel sounds present X 4 quads. Abd is soft X 4 quads Abdomen is tender to jg9 palpation in epigastric area, umbilical area and suprapubic area. 18:33 Reassessment: Patient reports that she is still having pain-provider notified Patient jg9 states symptoms have not improved. 19:33 Reassessment: Patient appears in no apparent distress at this time. No changes from alix previously documented assessment. The pt was taken to CT, along with her young daughter at bedside, and has returned. They are watching TV in the stretcher and in NAD. Vital Signs: 16:43 BP 134 / 97; Pulse 99; Resp 18; Temp 98.1; Pulse Ox 100% on R/A; Weight 99.79 kg; ab2 Height 5 ft. 6 in. (167.64 cm); Pain 10/10; 17:30 BP 138 / 88; Pulse 80; Resp 16; Pulse Ox 97% on R/A; Pain 10/10; jg9 18:30 BP 127 / 75; Pulse 84; Resp 14 S; Pulse Ox 95% on R/A; Pain 5/10; jg9 18:45 BP 128 / 79; Pulse 90; Resp 16; Pulse Ox 95% on R/A; Pain 8/10; jg9 19:34 BP 125 / 90; Pulse 74; Resp 18; Pulse Ox 100% on R/A; Pain 7/10; alix 20:12 BP 130 / 87; Pulse 73; Resp 18; Temp 98.5; Pulse Ox 100% on R/A; Pain 3/10; alix 16:43 Body Mass Index 35.51 (99.79 kg, 167.64 cm) ab2 ED Course: 16:40 Patient arrived in ED. am2 16:42 Fidencio Collado [facility]C [facility] la1 16:42 Jessica Martines MD is Attending Physician. la1 16:45 Triage completed. ab2 16:46 Arm band placed on right wrist. ab2 17:14 Xin Henderson, RN is Primary Nurse. jg9 17:30 Inserted saline lock: 22 gauge in right antecubital area, using aseptic technique. jg9 Blood collected. 17:44 Patient has correct armband on for positive identification. Bed in low position. Call jg9 light in reach. Side rails up X 1. 18:34 Resting quietly. interacting with young child. jg9 19:20 CT Abd/Pelvis - IV Contrast Only In Process Unspecified. EDMS 19:30 Primary Nurse role handed off by Xin Henderson, RN alix 19:30 Hailey Dennis, RN is Primary Nurse. alix 19:35 No provider procedures requiring assistance completed. alix 19:43 Urine Culture Sent. alix 19:45 Jameson Vivar MD is Referral Physician. la1 20:14 intact, bleeding controlled, No redness/swelling at site. Pressure dressing applied. alix Administered Medications: 17:30 Drug: Zofran (Ondansetron) 4 mg Route: IVP; Site: right antecubital; jg9 17:43 Follow up: Response: No adverse reaction jg9 17:31 Drug: Pepcid (famotidine) 20 mg Route: IVP; Site: right antecubital; jg9 17:44 Follow up: Response: No adverse reaction jg9 17:33 Drug: morphine 4 mg Route: IVP; Site: right antecubital; jg9 17:43 Follow up: Response: No adverse reaction; Pain is decreased jg9 18:51 Drug: NS 0.9% 500 ml Route: IV; Rate: bolus; Site: right antecubital; jg9 20:12 Follow up: Response: No adverse reaction; IV Status: Completed infusion; IV Intake: alix 500ml 18:51 Drug: morphine 2 mg {Note: RASS-0.} Route: IVP; Site: right antecubital; jg9 20:12 Follow up: Response: No adverse reaction alix 20:02 Drug: GI Cocktail without - (Maalox Suspension 30 ml, Lidocaine Liquid 2 % 15 alix ml) Route: PO; 20:11 Follow up: Response: No adverse reaction alix Point of Care Testing: Urine : 17:42 hCG Reading: Negative; Control Reading: Positive; jg9 Intake: 20:12 IV: 500ml; Total: 500ml. alix Outcome: 19:35 Condition: stable alix 19:46 Discharge ordered by MD. jordan 20:13 Discharged to home ambulatory. alix 20:13 Discharge instructions given to patient, Instructed on discharge instructions, medication usage, Demonstrated understanding of instructions, follow-up care, medications, Prescriptions given X 2. 20:14 Patient left the ED. alix Signatures: Dispatcher [employer] EDMS Fidencio Collado, NETWORK PROGRAM MANAGER-C NETWORK PROGRAM MANAGER-Cla1 Jill Lombardi Jennifer, RN RN jg9 Hailey Dennis RN RN bo Bleininger, Alexis ab2
--- NOTE | 2022-02-19 19:46 | EDPHYS ---
Physician Documentation [facility] Name: Genesis Hu Age: 31 yrs Sex: Female : 1990 Arrival Date: 02/19/2022 Time: 16:40 Bed 13 Private MD: ED Physician Jessica Martines HPI: 02/19 17:18 This 31 yrs old Female presents to ER via Ambulatory with complaints of Abdominal Pain. la1 17:18 The patient presents with abdominal pain in the epigastric area, in the lower abdomen. la1 Onset: The symptoms/episode began/occurred 2 day(s) ago. The symptoms do not radiate. Associated signs and symptoms: Pertinent positives: vaginal bleeding. The symptoms are described as sharp. Modifying factors: The symptoms are alleviated by nothing, the symptoms are aggravated by movement, pressure. Severity of pain: At its worst the pain was moderate. The patient has not experienced similar symptoms in the past. Patient reports abdominal pain beginning 1 day, vaginal bleeding which began on Wednesday, last menstrual cycle was approximately 7 to 10 days ago reports has had a tubal impassive not believe she is does have history of PCOS. Has both upper and lower abdominal pain at this time.. 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 - Social history:: Smoking status: Patient denies any tobacco usage or history of. ROS: 17:20 Constitutional: Negative for fever, chills, and weight loss, Eyes: Negative for injury, la1 pain, redness, and discharge, ENT: Negative for injury, pain, and discharge, Neck: Negative for injury, pain, and swelling, Cardiovascular: Negative for chest pain, palpitations, and edema, Respiratory: Negative for shortness of breath, cough, wheezing, and pleuritic chest pain, Back: Negative for injury and pain, Neuro: Negative for headache, weakness, numbness, tingling, and seizure. 17:20 Abdomen/GI: Positive for abdominal pain, abdominal cramps. 17:20 : Positive for vaginal bleeding. Exam: 17:20 Constitutional: This is a well developed, well nourished patient who is awake, alert, la1 and in no acute distress. Head/Face: Normocephalic, atraumatic. Eyes: Pupils equal round and reactive to light, ENT: Mucous membranes moist. Neck: Supple, full range of motion without nuchal rigidity, or vertebral point tenderness. No Meningismus. Chest/axilla: Normal chest wall appearance and motion. Cardiovascular: Regular rate and rhythm with a normal S1 and S2. Respiratory: Lungs have equal breath sounds bilaterally, clear to auscultation and percussion. 17:20 Back: No spinal tenderness. No costovertebral tenderness. Full range of motion. Skin: Warm, dry with normal turgor. Normal color with no rashes, no lesions, and no evidence of cellulitis. MS/ Extremity: Pulses equal, no cyanosis. Neurovascular intact. Full, normal range of motion. 17:20 Abdomen/GI: Inspection: obese Bowel sounds: normal, Palpation: soft, in all quadrants, moderate abdominal tenderness, in the epigastric area, suprapubic area, right upper quadrant and left upper quadrant, Indicators: McBurney's point is not tender, Cortes's sign is negative, Rovsing's sign is negative, Obturator sign is negative, Psoas sign is negative. Vital Signs: 16:43 BP 134 / 97; Pulse 99; Resp 18; Temp 98.1; Pulse Ox 100% on R/A; Weight 99.79 kg; ab2 Height 5 ft. 6 in. (167.64 cm); Pain 10/10; 17:30 BP 138 / 88; Pulse 80; Resp 16; Pulse Ox 97% on R/A; Pain 10/10; jg9 18:30 BP 127 / 75; Pulse 84; Resp 14 S; Pulse Ox 95% on R/A; Pain 5/10; jg9 18:45 BP 128 / 79; Pulse 90; Resp 16; Pulse Ox 95% on R/A; Pain 8/10; jg9 19:34 BP 125 / 90; Pulse 74; Resp 18; Pulse Ox 100% on R/A; Pain 7/10; alix 20:12 BP 130 / 87; Pulse 73; Resp 18; Temp 98.5; Pulse Ox 100% on R/A; Pain 3/10; alix 16:43 Body Mass Index 35.51 (99.79 kg, 167.64 cm) ab2 MDM: 16:46 Patient medically screened. la1 19:42 Data reviewed: vital signs, nurses notes, radiologic studies, and as a result, I will la1 discharge patient. Data interpreted: Pulse oximetry: on room air is 100 %. Interpretation: normal. Counseling: I had a detailed discussion with the patient and/or guardian regarding: the historical points, exam findings, and any diagnostic results supporting the discharge/admit diagnosis, lab results, radiology results, the need for outpatient follow up, a lining cleaner, to return to the emergency department if symptoms worsen or persist or if there are any questions or concerns that arise at home. Response to treatment: the patient's symptoms have mildly improved after treatment. Special discussion: Based on the patient's Hx, exam, and Dx evaluation, there is no indication for emergent surgery or inpatient Tx. It is understood by the patient/guardian that if the Sx's persist or worsen they need to return immediately for re-evaluation. Based on the history and exam findings, there is no indication for further emergent testing or inpatient evaluation. I discussed with the patient/guardian the need to see the lining cleaner for further evaluation of the symptoms. Wound beneft with EGD outpatient. ED course: Patient reports still having some mild epigastric pain reports that she ate just prior to coming when the pain started she is on Carafate and omeprazole at home has severe GERD, pain is epigastric in nature lipase is normal CT without any acute findings recommend patient follow-up with GI outpatient patient is. She is never had endoscopy performed before does have history of peptic ulcer disease. Will recommend patient continue using Carafate and omeprazole will provide a GI cocktail before discharge. Return precautions given, GI information provided.. 02/19 16:47 Order name: CBC with Diff; Complete Time: 18:10 la1 02/19 16:47 Order name: CMP; Complete Time: 18:10 la1 02/19 16:47 Order name: Lipase; Complete Time: 18:10 la1 02/19 16:57 Order name: Test, Serum; Complete Time: 18:10 [facility] 02/19 17:43 Order name: Urine Dipstick-Ancillary; Complete Time: 18:10 [facility] 02/19 17:42 Order name: CT Abd/Pelvis - IV Contrast Only; Complete Time: 19:35 [facility] 02/19 18:11 Order name: Urine Microscopic Only; Complete Time: 18:46 [facility] 02/19 18:49 Order name: Urine Culture [facility] 02/19 16:47 Order name: IV Saline Lock; Complete Time: 17:33 [facility] 02/19 16:47 Order name: Labs collected and sent; Complete Time: 17:33 [facility] 02/19 16:47 Order name: Urine Dipstick-Ancillary (obtain specimen); Complete Time: 17:42 [facility] 02/19 16:47 Order name: Urine Test (obtain specimen); Complete Time: 17:42 la Administered Medications: 17:30 Drug: Zofran (Ondansetron) 4 mg Route: IVP; Site: right antecubital; jg9 17:43 Follow up: Response: No adverse reaction j9 17:31 Drug: Pepcid (famotidine) 20 mg Route: IVP; Site: right antecubital; jg9 17:44 Follow up: Response: No adverse reaction j9 17:33 Drug: morphine 4 mg Route: IVP; Site: right antecubital; jg9 17:43 Follow up: Response: No adverse reaction; Pain is decreased jg9 18:51 Drug: NS 0.9% 500 ml Route: IV; Rate: bolus; Site: right antecubital; jg9 20:12 Follow up: Response: No adverse reaction; IV Status: Completed infusion; IV Intake: alix 500ml 18:51 Drug: morphine 2 mg {Note: RASS-0.} Route: IVP; Site: right antecubital; jg9 20:12 Follow up: Response: No adverse reaction alix 20:02 Drug: GI Cocktail without - (Maalox Suspension 30 ml, Lidocaine Liquid 2 % 15 alix ml) Route: PO; 20:11 Follow up: Response: No adverse reaction alix Point of Care Testing: Urine : 17:42 hCG Reading: Negative; Control Reading: Positive; jg9 Disposition Summary: 02/19/22 19:46 Discharge Ordered Location: Home la1 Problem: new la1 Symptoms: have improved la1 Condition: Stable la1 Diagnosis - Abdominal pain, Generalized la1 Followup: la1 - With: Jameson Vivar MD - When: 1 week - Reason: Recheck today's complaints, Continuance of care, Re-evaluation by your physician Followup: la1 - With: Emergency Department - When: As needed - Reason: Worsening of condition Discharge Instructions: - Discharge Summary Sheet la1 - Food Choices for Gastroesophageal Reflux Disease, Adult la1 - Gastroesophageal Reflux Disease, Adult la1 Forms: - Medication Reconciliation Form la1 - Thank You Letter la1 Prescriptions: - Carafate 1 gram Oral Tablet - take 1 tablet by ORAL route 4 times per day take on an empty stomach, beginning la1 on waking and last dose at bedtime; 100 tablet; Refills: 0, Product Selection Permitted - dicyclomine 10 mg Oral Capsule - take 1 capsule by ORAL route 3 times per day; 15 capsule; Refills: 0, Product la1 Selection Permitted Signatures: Dispatcher [employer] EDNY Fidencio Collado, PIVOT MAKER-C PIVOT MAKER-Cla1 Xin Henderson RN RN jg9 Hailey Dennis RN Vitaly Fong
[2022-02-19] MEDS ORDERED: LIDOCAINE VISCOUS 2% SOLN 15 ML UDC ONE (20:04)
[2022-02-19] MEDS ORDERED: MAGNES/ALUMIN/SIMET 30ML UCUP ONE (20:04)
[2022-02-19 20:29] VITALS: O2SAT 100
[2022-02-19 20:31] VITALS: BP 130/87; TEMP 98.5
== END 2022-02-19 20:14 | disposition home or self-care (01) ==
LOC: ER 16:39
DX: R10.84 Generalized abdominal pain (principal); Z88.0 Allergy status to penicillin; Z88.1 Allergy status to other antibiotic agents; Z91.040 Latex allergy status
CPT/HCPCS: 36415; 74177; 80053; 81003; 81015; 83690; 84703; 85025; 87086; 87088; 96361; 96374; 96375; 99284; J2270; J2405; J3490; J7040; Q9967

== ENCOUNTER 2022-03-31 13:51 | Emergency (ER) | payer SELFPAY ==
--- OUTSIDE RECORDS SUMMARY | 2022-03-31 13:55 | XMS REPORT | Continuity of Care Document ---
:1990 Author Organization [facility] t Address [facility] [address] [place] [address] Care Team Providers Name Role Phone PCP, DOES NOT HAVE A Primary Care Physician Unavailable Marcial AARON Attending Clinician Unavailable Blas SOTO, S Attending Clinician Attending Clinician Unavailable Singer [...] different from the original. 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 1 hr- 47 Immune to Immune to Disease Active Uni vers varicella varicella 07-05 ity of 00:00: [place] [facility] High-risk High-risk Disease Active Overview: Univers 06-30 Formattin i ty of 00:00: g of this [place] note Medical might be Branch different from the original. Medical records received. [facility]. DOS- 0. CC: 30 weeks w/ twins, vomiting black liquid. No evidence of hepatitis , pancreati tis, or liver dysfuncti on. Physiolog ic anemia. No UTI or ketonuria . ICD10 Diagnosis Term Internal Controls Specialist Utility History of History of Disease Active [...] f labor labor 00:00: g of this note Medical might be Branch different from the original. Delivered at 28 week via for PTL -Twins. Send to [facility] at 16 weeks Pain Pain Disease Active [...] ity of adverse 00:00: [place] reaction 00 [facility] s Branch Social History Social Habit Start Date Stop Date Quantity Comments Source Exposure to Not sure [facility] SARS-CoV-2 [place] [facility] (event) Branch Alcohol intake 2021-10-13 2021-10-13 Current [facility] 00:00:00 00:00:00 non-drinker of [facility] alcohol Branch (finding) Tobacco use and 2013-06-30 2013-06-30 Never used Universit y of exposure 00:00:00 00:00:00 [facility] Sex Ass[birth year] At [birth year] Universit y of 00:00:00 00:00:00 [facility] Smoking Status Start Date Stop Date Source Never smoker [facility] Branch Medications Ordered Filled Start Stop Current Ordering Indication Dosage Frequency Signature Comments Components Source Medication Medication Date Date Medication? Clinician (SIG) Name Name rodrigo Yes [id number] 500mg Take 1 Univers dominique 500 mg 2-23 tablet by ity of tablet 00:00: mouth [place] 00 every 12 Medical (twelve) Branch hours. pantoprazol Yes [id number] 40mg Take 1 Univers e 40 mg EC 2-23 tablet by ity of tablet 00:00: mouth [place] 00 daily. Medical Branch sucralfate 2021- No [id number] 1g Take 1 Univers 1 gram 2-23 03-26 tablet by ity of tablet 00:00: 04:59 mouth [place] 00 :00 before Medical meals and Branch at bedtime for 30 days. metroNIDAZO 2021- No [id number] 500mg Take 1 Univers LE 500 mg 2-23 03-10 tablet by ity of tablet 00:00: 05:59 mouth [place] 00 :00 every 8 Medical (eight) Branch hours for 14 days. sucralfate 2021- No [id number] 1g Take 1 Univers 1 gram 2-23 - tablet by ity of tablet 00:00: 00:00 mouth [place] 00 :00 before Medical meals and Branch at bedtime. maalox:diph 2021- No 15mL 15 mL, Uni vers enhydrAMINE 2-07 02-07 Oral, ity of :lidocaine 21:30: 20:30 ONCE, 1 Jerrell as 2 % viscous 00 :00 dose, On Medi denzel 1:1:1 12/08/21 Branch ([facility] at 1530, [facility]) Routine oral suspension 15 mL sucralfate Yes [id number] 1g Take 1 U nivers 1 gram 2-07 tablet by ity of tablet 00:00: mouth [place] 00 before Medical meals and Branch at bedtime. dicyclomine 0 Yes [id number] 10mg Take 1 Univers (BENTYL) 10 2-07 capsule by it y of mg capsule 00:00: mouth [place] 00 every 8 Medical (eight) Branch hours as needed for Abdominal pain. ondansetron 0 Yes [id number] 4mg Take 1 Univers 4 mg 2-07 tablet by ity of disintegrat 00:00: mouth [place] ing tablet 00 every 8 Medica l (eight) Branch hours as needed for Nausea and Vomiting (N/V). dicyclomine 0 Yes [id number] 10mg Take 1 Univers (BENTYL) 10 2-07 capsule by it y of mg capsule 00:00: mouth [place] 00 every 8 Medical (eight) Branch hours as needed for Abdominal pain. ondansetron Yes [id number] 4mg Take 1 Univers 4 mg 2-07 tablet by ity of disintegrat 00:00: mouth [place] ing tablet 00 every 8 Medica l (eight) Branch hours as needed for Nausea and Vomiting (N/V). omeprazole 2021- No [id number] 20mg Take 1 Univers 20 mg 2-07 03-10 capsule by ity of capsule 00:00: 05:59 mouth [place] 00 :00 daily for Medical 30 days. Branch omeprazole 2021- No [id number] 20mg Take 1 Univers 20 mg 2-07 03-10 capsule by ity of capsule 00:00: 05:59 mouth [place] 00 :00 daily for Medical 30 days. Branch sucralfate 2021- No [id number] 1g Take 1 Univers 1 gram 2-07 -23 tablet by ity of tablet 00:00: 00:00 mouth [place] 00 :00 before Medical meals and Branch at bedtime. bismuth-met 2021- No [id number] 3{capsu Take 3 Univers ronidazole- 2-07 -22 le} capsules ity of tetracyclin 00:00: 05:59 by mouth [place] e 00 :00 before Medical 140-125-125 meals and Bra nch mg per at bedtime capsule for 14 days. pantoprazol 2020-11 Yes [id number] 40mg Take 1 Univers e 2-13 tablet by ity of (PROTONIX) 00:00: mouth [place] 40 mg EC 00 daily. Medical tablet Branch pantoprazol 2020-11 Yes [id number] 40mg Take 1 Univers e 2-13 tablet by ity of (PROTONIX) 00:00: mouth [place] 40 mg EC 00 daily. Medical tablet Branch pantoprazol 2020-11- No [id number] 40mg Take 1 Univers e 2-13 02-23 tablet by ity of (PROTONIX) 00:00: 00:00 mouth [place] 40 mg EC 00 :00 daily. Medical tablet Branch sucralfate 2020-11- No [id number] 1g Take 1 Univers 1 gram 2-13 -13 tablet by ity of tablet 00:00: 05:59 mouth [place] 00 :00 before Medical meals and Branch at bedtime for 30 days. dicyclomine 2020-11 Yes 10mg 10 mg, Univ ers (BENTYL) - Oral, QID, ity o f capsule 10 18:00: First dose [place] mg 00 on [facility] 09/23/21 Branch at 1200, Until Discontinu ed, Routine sucralfate 2020-11 Yes 1g 1 g, Oral, U nivers (CARAFATE) 11-23 AC+HS, ity of tablet 1 g 17:30: First dose [place] 00 on [facility] 09/23/21 Branch at 1130, Until Discontinu ed, Routine pantoprazol 2020-11 40mg 40 mg, Uni vers e 11-23 Slow IV ity of (PROTONIX) 15:45: 15:00 Push, [place] injection 00 :00 ONCE, 1 Medical 40 mg dose, On Branch [facility] 09/23/21 at 0945 dicyclomine 2020-11 Yes [id number] 10mg Take 1 Univers (BENTYL) 10 -23 capsule by it y of mg capsule 00:00: mouth [place] 00 every 8 Medical (eight) Branch hours as needed for Abdominal pain. ondansetron 2020-11 Yes [id number] 4mg Take 1 Univers 4 mg 1-23 tablet by ity of disintegrat 00:00: mouth [place] ing tablet 00 every 8 Medica l (eight) Branch hours as needed for Nausea and Vomiting (N/V). sucralfate 2020-11 Yes [id number] 1g Take 1 U nivers 1 gram -23 tablet by ity of tablet 00:00: mouth [place] 00 before Medical meals and Branch at bedtime. dicyclomine 2020-11 Yes [id number] 10mg Take 1 Univers (BENTYL) 10 1-23 capsule by it y of mg capsule 00:00: mouth [place] 00 every 8 Medical (eight) Branch hours as needed for Abdominal pain. ondansetron 2020-11 Yes [id number] 4mg Take 1 Univers 4 mg 1-23 tablet by ity of disintegrat 00:00: mouth [place] ing tablet 00 every 8 Medica l (eight) Branch hours as needed for Nausea and Vomiting (N/V). pantoprazol 2020-11 Yes [id number] 40mg Take 1 Univers e -23 tablet by ity of (PROTONIX) 00:00: mouth [place] 40 mg EC 00 daily. Medical tablet Branch dicyclomine 2020-11- No [id number] 10mg Take 1 Univers (BENTYL) 10 11-23- capsule by i ty of mg capsule 00:00: 00:00 mouth [place] 00 :00 every 8 Medical (eight) Branch hours as needed for Abdominal pain. ondansetron 2020-11- No [id number] 4mg Take 1 Univers 4 mg 11-23- tablet by ity of disintegrat 00:00: 00:00 [place] ing tablet 00 :00 every 8 Medica l (eight) Branch hours as needed for Nausea and Vomiting (N/V). sucralfate 2020-11- No [id number] 1g Take 1 Univers 1 gram 11-23 12-13 tablet by ity of tablet 00:00: 00:00 mouth [place] 00 :00 before Medical meals and Branch at bedtime. pantoprazol 2020-11- No [id number] 40mg Take 1 Univers e 11-23 12-13 tablet by ity of (PROTONIX) 00:00: 00:00 mouth [place] 40 mg EC 00 :00 daily. Medical tablet Branch ciprofloxac Yes [id number] 500mg Take 1 Univers in HCl 500 1-25 tablet by ity of mg tablet 00:00: mouth 2 [place] 00 (two) Medical times Branch daily. ciprofloxac 2020- No [id number] 500mg Take 1 Univers in HCl 500 1-25 12-13 tablet by ity of mg tablet 00:00: 00:00 mouth 2 [place] 00 :00 (two) Medical times Branch daily. ondansetron 2020- No [id number] 4mg Take 1 Univers (ZOFRAN 1-25 -23 tablet by ity of ODT) 4 mg 00:00: 00:00 mouth [place] disintegrat 00 :00 every 8 Medic al ing tablet (eight) Branch hours as needed for Nausea and Vomiting (N/V). cyclobenzap 2019-11 Yes [id number] 10mg Take 1 Univers rine 10 mg 1-11 tablet by ity of tablet 00:00: mouth 3 [place] 00 (three) Medical times Branch daily. cyclobenzap 2020- Yes [id number] 10mg Take 1 Univers rine 10 mg 1-11 tablet by ity of tablet 00:00: mouth 3 [place] 00 (three) Medical times Branch daily. cyclobenzap 2020- Yes [id number] 10mg Take 1 Univers rine 10 mg 1-11 tablet by ity of tablet 00:00: mouth 3 [place] 00 (three) Medical times Branch daily. ibuprofen 2019- Yes [id number] 600mg Take 1 Univers 600 mg 1-11 tablet by ity of tablet 00:00: mouth [place] 00 every 6 Medical (six) Branch hours as needed for Pain (scale 4-6). cyclobenzap 2019- Yes [id number] 10mg Take 1 Univers rine 10 mg 1-11 tablet by ity of tablet 00:00: mouth 3 [place] 00 (three) Medical times Branch daily. ibuprofen 2019-11- No [id number] 600mg Take 1 Univers 600 mg 1-11 [...] Branch OLIC ACID ORAL) bromphenira 2020-0 Yes [id number] 5mL Take 5 mL Univers mine-pseudo 4-04 by mouth 4 it y of ephedrine-D 00:00: (four) [place] s M (BROMFED 00 times Medical DM) 2-30-10 daily as Bran ch mg/5 mL needed for syrup Congestion /Allergies or Cough. bromphenira 2020-0 Yes [id number] 5mL Take 5 mL Univers mine-pseudo 4-04 by mouth 4 it y of ephedrine-D 00:00: (four) [place] s M (BROMFED 00 times Medical DM) 2-30-10 daily as Bran ch mg/5 mL needed for syrup Congestion /Allergies or Cough. bromphenira 2020-0 Yes [id number] 5mL Take 5 mL Univers mine-pseudo 4-04 by mouth 4 it y of ephedrine-D 00:00: (four) [place] s M (BROMFED 00 times Medical DM) 2-30-10 daily as Bran ch mg/5 mL needed for syrup Congestion /Allergies or Cough. methylPREDN 2020-0 Yes [id number] Take by Univers ISolone 4 4-04 mouth ity of mg tablets 00:00: SEE-INSTRU [place] 00 CTIONS. Medical follow Branch package directions levoFLOXaci 2020-0 Yes [id number] 500mg Take 1 Univers n 4-04 tablet by ity of (LEVAQUIN) 00:00: mouth [place] 500 mg 00 every 24 Medical tablet (twenty-fo Branch ur) hours. bromphenira 2020-0 Yes [id number] 5mL Take 5 mL Univers mine-pseudo 4-04 by mouth 4 it y of ephedrine-D 00:00: (four) [place] s M (BROMFED 00 times Medical DM) 2-30-10 daily as Bran ch mg/5 mL needed for syrup Congestion /Allergies or Cough. methylPREDN 2020-0 2020- No [id number] Take by Univers ISolone 4 4-04 12-13 mouth ity of mg tablets 00:00: 00:00 SEE-INSTRU [place] 00 :00 CTIONS. Medical follow Branch package directions levoFLOXaci 2020-0 2021- No [id number] 500mg Take 1 Univers n 4-04 12-13 tablet by ity of (LEVAQUIN) 00:00: 00:00 mouth [place] 500 mg 00 :00 every 24 Medical tablet (twenty-fo Branch ur) hours. Immunizations Ordered Filled Immunization Date Status Comments [facility] e Immunization Name Name Td 2016-04-30 Completed University of 00:00:00 [place] [facility] Td 2016-04-30 Completed University of 00:00:00 [place] [facility] Td 2016-04-30 Completed University of 00:00:00 [place] [facility] Td 2016-04-30 Completed University of 00:00:00 [place] [facility] Rubella 2010-04-22 Completed University of 00:00:00 [place] [facility] Rubella 2010-04-22 Completed University of 00:00:00 [place] [facility] Rubella 2010-04-22 Completed University of 00:00:00 [place] [facility] Rubella 2010-04-22 Completed University of 00:00:00 [place] [facility] Td 2006-06-30 Completed University of 00:00:00 [place] [facility] Td 2006-06-30 Completed University of 00:00:00 [place] [facility] Td 2006-06-30 Completed University of 00:00:00 [place] [facility] Td 2006-06-30 Completed University of 00:00:00 [facility] Vital Signs Vital Name Observation Time Observation Value Comments Source Systolic blood 2021-12-24 17:26:00 147 mm[Hg] Univer sity of pressure [facility] Diastolic blood 2021-12-24 17:26:00 80 mm[Hg] Unive rsity of [facility] Heart rate 2021-12-24 17:26:00 71 /min [facility] Body temperature 2021-12-24 17:26:00 36.17 Chelsea [facility] Respiratory rate 2021-12-24 17:26:00 18 /min [facility] weight 2021-12-24 17:26:00 86.183 kg [facility] BMI 2021-12-24 17:26:00 29.76 kg/m2 [facility] Oxygen saturation in 2021-12-24 17:26:00 99 /min [facility] Arterial blood by [facility] Pulse oximetry Branch Systolic blood 2021-12-08 18:45:00 131 mm[Hg] Univer sity of pressure [facility] Diastolic blood 2021-12-08 18:45:00 91 mm[Hg] Unive rsity of pressure [facility] Heart rate 2021-12-08 18:45:00 86 /min [facility] Body temperature 2021-12-08 18:45:00 36.72 Chelsea Univ ersity of [place] [facility] Respiratory rate 2021-12-08 18:45:00 18 /min Univ ersity of [place] [facility] Body weight 2021-12-08 18:45:00 86.183 kg Universi ty of [place] [facility] BMI 2021-12-08 18:45:00 29.76 kg/m2 Universi ty of [place] [facility] Oxygen saturation in 2021-12-08 18:45:00 98 /min University of Arterial blood by [place] [facility] denzel Pulse oximetry Branch Systolic blood 2021-10-13 13:42:00 123 mm[Hg] Univer sity of pressure [place] [facility] Diastolic blood 2021-10-13 13:42:00 78 mm[Hg] Unive rsity of pressure [place] [facility] Heart rate 2021-10-13 13:42:00 86 /min Universi ty of [place] [facility] Body temperature 2021-10-13 13:42:00 36.78 Chelsea Univ ersity of [place] [facility] Respiratory rate 2021-10-13 13:42:00 18 /min Univ ersity of [place] [facility] Body weight 2021-10-13 13:42:00 86.183 kg Universi ty of [place] [facility] BMI 2021-10-13 13:42:00 29.76 kg/m2 Universi ty of [place] [facility] Oxygen saturation in 2021-10-13 13:42:00 98 /min University of Arterial blood by [place] frents denzel Pulse oximetry Branch Systolic blood 2021-09-23 16:00:00 128 mm[Hg] Univer sity of pressure [place] [facility] Diastolic blood 2021-09-23 16:00:00 79 mm[Hg] Unive rsity of pressure [place] [facility] Heart rate 2021-09-23 16:00:00 79 /min Universi ty of [place] [facility] Body temperature 2021-09-23 16:00:00 36.72 Chelsea Univ ersity of [place] [facility] Oxygen saturation in 2021-09-23 16:00:00 100 /min University of Arterial blood by [place] Medi denzel Pulse oximetry Branch Respiratory rate 2021-09-23 14:25:00 18 /min Univ ersity of [place] [facility] Body height 2021-09-23 14:25:00 170.2 cm [facility] Body weight 2021-09-23 14:25:00 86.183 kg [facility] Branch BMI 2021-09-23 14:25:00 29.76 kg/m2 [facility] Procedures Procedure Date / Time Performed Performing Clinician Sour e CONSENT/REFUSAL FOR 2021-12-24 17:15:06 Doctor Unassigned, No Un i[facility]ity of [place] DIAGNOSIS AND Name Medical Branch TREATMENT NOTICE OF PRIVACY 2021-12-08 18:35:32 Doctor Unassigned, No Univ [facility] PRACTICES Name Medical Branch CONSENT/REFUSAL FOR 2021-12-08 18:35:08 Doctor Unassigned, No Un iversity [facility] DIAGNOSIS AND [facility] Medical Branch TREATMENT ASSIGNMENT OF BENEFITS 2021-10-13 13:51:35 Doctor Unassigned, No General acute hospital Branch CONSENT/REFUSAL FOR 2021-10-13 13:36:21 [facility], [facility] Branch TREATMENT COMP. METABOLIC PANEL 2021-09-23 15:35:00 [facility]ridhar Mata [facility] ([id number] Medical Branch LIPASE 2021-09-23 14:59:00 [facility] CBC WITH DIFF 2021-09-23 14:59:[address] [place] CONSENT/REFUSAL FOR 2021-09-23 14:17:56 Doctor Unassigned, No Un [facility] [place] DIAGNOSIS AND [facility] Medical Branch TREATMENT Encounters Start End Encounter Admission Attending Care Care Encounter Source Date/Time Date/Time Type Type Clinicians Facility Department ID 2021-12-24 2021-12-24 Emergency X LINSEY AARON ERT [id number] Univers 11:28:00 13:33:00 JAYY busby of [facility] 2021-12-24 2021-12-24 Emergency LINSEY Aaron [id number] Univers 11:28:00 13:33:00 Jayy OWENS [id number] i ty [facility] [id number] [facility] [id number] [facility] 084 Branch 2021-12-08 2021-12-08 Emergency X LINSEY MATA ERT [id number] Univers 12:45:00 14:51:[address] [facility] 2021-12-08 2021-12-08 Emergency Singer [facility] [id number] Univers 12:45:00 14:51:00 Sridhar OWENS [id number] i ty of [place] [id number] [facility] [id number] [address] 2021-10-13 2021-10-13 Emergency X CATRACHITO [facility] ERT [id number] Univers 07:44:00 07:58:[address] [facility] 2021-10-13 2021-10-13 [facility] [id number] Univers 07:44:00 07:58:00 Latha Rose ROMAN [id number] ity [facility] [id number] [facility] [id number] [address] 2021-09-23 2021-09-23 Emergency X SINGER [facility] ERT [id number] Univers 08:30:00 10:37:[address] [facility] 2021-09-23 2021-09-23 Emergency [facility] [id number] Univers 08:30:00 10:37:00 Sridhar DENTONMIKKI [id number] i ty of [place] [id number] [facility] [id number] [address] 2020-11-25 2020-11-25 Emergency Kyra Medeiros [facility] [id number] 15:24:00 20:37:00 Pooja Owens [id number] [place] [address] [place] [address] [id number] [facility] 2020-11-25 2020-11-25 Emergency X [facility] ERT [id number] Univers 15:14:00 15:14:[address] [facility] 2020-10-31 2020-10-31 Emergency Jack Brower [facility] [id number] 09:18:00 12:22:00 Gaby Owens [id number] [place] 4.2.7.2.686 [place] [id number] 2020-10-31 2020-10-31 Emergency X JACK BROWER [facility] ERT [id number] Univers 09:18:00 09:18:[address] [facility] 2020-09-11 2020-09-11 Emergency Kyra Medeiros [facility] [id number] 14:32:00 16:08:00 Pooja Owens [id number] [place] 4.2.7.2.686 [place] [id number] 2020-09-11 2020-09-11 Emergency X Kyra MEDEIROS [facility] ERT [id number] Univers 14:32:00 14:32:00 ity of [facility] 2020-02-03 2020-02-03 Emergency [facility] [id number] 17:08:08 18:20:00 Anjali [place] [id number] [place] 4.2.7.2.686 [place] [id number] 084 2020-02-03 2020-02-03 Emergency [facility]RT [id number] Univers 17:00:00 17:00:[address] [facility] 2020-02-03 2020-02-03 Orders Doctor DAVID [id number] 00:00:00 00:00:00 Only Unassigned, ANGIE [id number] [facility] .2.7.2.686 [id number] 2020-01-10 2020-01-11 Emergency [facility] [id number] 23:46:02 01:01:00 Roman [id number] [place] 4.2.7.2.686 [place] [id number] 2020-01-10 2020-01-10 Emergency X [facility] ERT [id number] Univers 23:02:00 23:02:[address] [facility] 2019-12-18 2019-12-18 Emergency X Kyra MEDEIROS [facility] ERT [id number] Univers 17:24:37 18:57:00 ity of [facility] 2019-12-18 2019-12-18 Emergency Kyra Medeiros [facility] [id number] 17:24:37 18:57:00 Pooja Owens [id number] [place] 4.2.7.2.686 [place] [id number] 2019-12-18 2019-12-18 Orders Doctor DAVID [id number] 00:00:00 00:00:00 Only Unassigned, ANGIE [id number] [place] [facility] 4.2.7.2.686 [id number] 2019-06-29 2019-06-29 Emergency Tori, [facility] [id number] 02:13:29 04:06:00 Jose David Owens [id number] [place] [id number] [place] [id number] Results Test Description Test Time Test Comments Results Result Comments Source COMP. METABOLIC PANEL (04816) 2021-09-23 16:10:10 Test Item Value Reference Range Interpretation Comme nts NA (test code = 8026447351) 135 mmol/L 135-145 K (test code = 6127865357) 4.5 mmol/L 3.5-5.0 CL (test code = 3630990865) 101 mmol/L 98-108 CO2 TOTAL (test code = 28 mmol/L 23-31 2626407180) AGAP (test code = 2347019308) 2-16 BUN (test code = 9717937747) 19 mg/dL 7-23 GLUCOSE (test code = 2734359767) 94 mg/dL 70-110 CREATININE (test code = 0.83 mg/dL 0.50-1.04 1053511073) TOTAL BILI (test code = 0.5 mg/dL 0.1-1.0 8229327507) CALCIUM (test code = 5981681911) 9.9 mg/dL 8.6-10.6 T PROTEIN (test code = 7.6 g/dL 6.3-8.2 9133555979) ALBUMIN (test code = 0516113381) 4.5 g/dL 3.5-5.0 ALK PHOS (test code = 4672954671) 52 U/L 34-122 ALTv (test code = 1742-6) 15 U/L 5-35 AST(SGOT) (test code = 21 U/L 13-40 1754355476) eGFR (test code = 2323678144) mL/min/1.73m2 JASMYN (test code = JASMYN) Association [...] or urine or abnormalities in imaging tests). [facility] 15:52:35 Test Item Value Reference Range Interpretation Comments LIPASE (test code = 7316320186) 72 U/L 0-220 Lab Interpretation (test code = Normal 70400-2) [facility] WITH [id number] 15:37:27 Test Item Value Reference Range Interpretation Comments WBC (test code = See_Comment [Automated 4990-2) message] The sy stem which generated this [...] RDW-SD (test code = 43.4 fL 39.0-49.9 94530-2) RDW-CV (test code = 14.0 % 12.0-15.5 788-0) PLT (test code = See_Comment H [Automated 777-3) message] The sy stem which generated this result transmitted reference range : 166 - 358 10*3/ ?L. The reference r juliano was not used to interpret this result as normal/abnormal . MPV (test code = 10.4 fL 9.5-12.9 33667-3) NRBC/100 WBC (test See_Comment [Automat ed code = 0478837203) message] The system which generated this result transmitted reference range : 0.0 - 10.0 /100 WBCs. The refer ence range was not u sed to interpret th is result as normal/abnormal . NRBC x10^3 (test code <0.01 See_Comment [Auto mated = 3065969849) message] The s ystem which generated this result transmitted reference range : 10*3/?L. The reference range was not used to interpret this result as normal/abnormal . GRAN MAT (NEUT) % 60.5 % (test code = 770-8) IMM GRAN % (test code 0.30 % = 7329328057) LYMPH % (test code = 28.4 % 736-9) MONO % (test code = 6.4 % 5905-5) EOS % (test code = 3.6 % 713-8) BASO % (test code = 0.8 % 706-2) GRAN MAT x10^3(ANC) 3.71 10*3/uL 1.88-7.09 (test code = 2620702717) IMM GRAN x10^3 (test <0.03 0.00-0.06 code = 9756224929) LYMPH x10^3 (test code 1.74 10*3/uL 1.32-3.29 = 731-0) MONO x10^3 (test code 0.39 10*3/uL 0.33-0.92 = 742-7) EOS x10^3 (test code = 0.22 10*3/uL 0.03-0.39 711-2) BASO x10^3 (test code 0.05 10*3/uL 0.01-0.07 = 704-7) Lab Interpretation Abnormal (test code = 81951-2) [facility]"
[2022-03-31] MEDS ORDERED: DIAZEPAM 5 MG TABLET ONE (14:22)
[2022-03-31] MEDS ORDERED: HYDROCODONE/APAP 5/325 MG TAB ONE (14:22)
--- NOTE | 2022-03-31 14:44 | RAD REPORT ---
EXAM DESCRIPTION: RAD - Lumbar Spine 3 Views - 03/31/2022 2:39 pm CLINICAL HISTORY: PAIN Radiculopathy COMPARISON: No comparisons FINDINGS: Vertebral body heights appear maintained. No compression fracture noted. Disc spaces are m aintained. No spondylolysis or spondylolisthesis. IMPRESSION: Negative study.
--- NOTE | 2022-03-31 14:44 | RAD REPORT ---
EXAM DESCRIPTION: RAD - Knee Right 3 View - 03/31/2022 2:39 pm CLINICAL HISTORY: PAIN COMPARISON: Knee Right 3 View dated 08/23/2021 FINDINGS: No acute fracture or dislocation. No joint effusion.
--- NOTE | 2022-03-31 15:57 | ER ---
Nurse's Notes [facility] Name: Genesis Hu Age: 31 yrs Sex: Female : 1990 Arrival Date: 03/31/2022 Time: 13:52 Bed Treatment Private MD: Diagnosis: Pain in right knee;Low back pain Presentation: 03/31 14:14 Chief complaint: Patient states: Right hip pain radiates down my right leg. Coronavirus ld1 screen: At this time, the client does not indicate any symptoms associated with coronavirus-19. Ebola Screen: No symptoms or risks identified at this time. Initial Sepsis Screen: Does the patient meet any 2 criteria? No. Patient's initial sepsis screen is negative. Does the patient have a suspected source of infection? No. Patient's initial sepsis screen is negative. Risk Assessment: Do you want to hurt yourself or someone else? Patient reports no desire to harm self or others. Onset of symptoms was March 31, 2022 at 14:15. 14:14 Method Of Arrival: Ambulatory ld1 14:14 Acuity: KRISTIN 4 ld1 Triage Assessment: 14:15 General: Appears in no apparent distress. comfortable, Behavior is calm, cooperative, ld1 appropriate for age. Pain: Complains of pain in right leg Pain does not radiate. Pain currently is 8 out of 10 on a pain scale. EENT: No signs and/or symptoms were reported regarding the EENT system. Neuro: Level of Consciousness is awake, alert, obeys commands, Oriented to person, place, time, situation. Cardiovascular: Capillary refill < 3 seconds Patient's skin is warm and dry. Respiratory: Airway is patent Respiratory effort is even, unlabored. GI: Abdomen is round non-distended. : No signs and/or symptoms were reported regarding the genitourinary system. Derm: No signs and/or symptoms reported regarding the dermatologic system. Musculoskeletal: Reports pain in right leg. 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 - Social history:: Smoking status: Patient denies any tobacco usage or history of. Patient/guardian denies using alcohol. Screenin:15 Abuse screen: Denies threats or abuse. Nutritional screening: No deficits noted. jb4 Tuberculosis screening: No symptoms or risk factors identified. Fall Risk None identified. Assessment: 16:15 Reassessment: Patient appears in no apparent distress at this time. Patient and/or jb4 family updated on plan of care and expected duration. Pain level reassessed. Patient is alert, oriented x 3, equal unlabored respirations, skin warm/dry/pink. Vital Signs: 14:17 BP 134 / 82; Pulse 89; Resp 16; Temp 98.0; Pulse Ox 97% on R/A; iw ED Course: 13:52 Patient arrived in ED. am2 13:56 Roland Us DO is Attending Physician. ms3 14:15 Triage completed. ld1 14:15 Arm band placed on right wrist. ld1 14:41 Knee Right 3 View XRAY In Process Unspecified. EDMS 14:41 Lumbar Spine (3 Views) XRAY In Process Unspecified. EDMS 15:56 Gagan Blancas MD is Referral Physician. ms3 16:15 Patient has correct armband on for positive identification. jb4 16:15 No provider procedures requiring assistance completed. Patient did not have IV access jb4 during this emergency room visit. Administered Medications: 14:18 Drug: HYDROcodone-acetaminophen 5 mg-325 mg 1 tabs Route: PO; iw 16:14 Follow up: Response: No adverse reaction; Marked relief of symptoms jb4 14:18 Drug: Valium (diazepam) 5 mg Route: PO; iw 16:14 Follow up: Response: No adverse reaction; Marked relief of symptoms jb4 Medication: 16:15 VIS not applicable for this client. jb4 Outcome: 15:57 Discharge ordered by . ms3 16:15 Discharged to home via wheelchair, with family. jb4 16:15 Condition: stable 16:15 Discharge instructions given to patient, Instructed on discharge instructions, follow up and referral plans. no drinking with medication, no driving heavy equipment, medication usage, Demonstrated understanding of instructions, follow-up care, medications, Prescriptions given X 1. 16:16 Patient left the ED. jb4 Signatures: Dispatcher [employer] EDMS Veronica Mcdermott, RN Peter Paul RN RN jb4 Jill Lombardi am2 Roland Us DO DO ms3 Alia Chang RN RN ld1
[2022-03-31 16:28] VITALS: BP 134/82; TEMP 98; O2SAT 97
--- NOTE | 2022-04-01 16:16 | EDPHYS ---
Physician Documentation [facility] Name: Genesis Hu Age: 31 yrs Sex: Female : 1990 Arrival Date: 03/31/2022 Time: 13:52 Bed Treatment Private MD: ED Physician Roland Us HPI: 03/31 15:57 This 31 yrs old Female presents to ER via Ambulatory with complaints of Leg Pain, Knee ms3 Pain. 15:57 The patient presents with an injury, pain. The complaints affect the right knee and ms3 right leg. Context:. Onset: The symptoms/episode began/occurred 2 day(s) ago. Modifying factors: The symptoms are alleviated by nothing. the symptoms are aggravated by movement, weight bearing. Associated signs and symptoms: Pertinent negatives calf tenderness, fever, nausea, swelling. 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 - Social history:: Smoking status: Patient denies any tobacco usage or history of. Patient/guardian denies using alcohol. ROS: 15:57 Constitutional: Negative for fever, and chills. Neck: Negative for injury, pain, and ms3 swelling, Cardiovascular: Negative for chest pain, and palpitations. Respiratory: Negative for shortness of breath, cough, wheezing, and pleuritic chest pain, Abdomen/GI: Negative for abdominal pain, nausea, vomiting, diarrhea, and constipation, Skin: Negative for injury, rash, and discoloration. 15:57 MS/extremity: Positive for pain, tenderness. 15:57 All other systems are negative. Exam: 15:57 Constitutional: This is a well developed, well nourished patient who is awake, alert, ms3 and in no acute distress. Head/Face: Normocephalic, atraumatic. Eyes: Pupils equal round and reactive to light, extra-ocular motions intact. Lids and lashes normal. Conjunctiva and sclera are non-icteric and not injected. Periorbital areas with no swelling, redness, or edema. Chest/axilla: Normal chest wall appearance and motion. Nontender with no deformity. Cardiovascular: Regular rate and rhythm with a normal S1 and S2. No gallops, murmurs, or rubs. Normal PMI, no JVD. No pulse deficits. Respiratory: Lungs have equal breath sounds bilaterally, clear to auscultation and percussion. No rales, rhonchi or wheezes noted. No increased work of breathing, no retractions or nasal flaring. Abdomen/GI: Soft, non-tender, with normal bowel sounds. No distension or tympany. No guarding or rebound. No evidence of tenderness throughout. Psych: Awake, alert, with orientation to person, place and time. Behavior, mood, and affect are within normal limits. 15:57 Back: pain, that is mild, ROM is normal, normal spinal alignment noted. 15:57 Musculoskeletal/extremity: Extremities: noted in the right knee: pain, tenderness. Vital Signs: 14:17 BP 134 / 82; Pulse 89; Resp 16; Temp 98.0; Pulse Ox 97% on R/A; iw MDM: 15:56 Patient medically screened. ms3 15:57 Differential diagnosis: closed fracture, contusion, tendonitis. Data reviewed: vital ms3 signs, nurses notes, radiologic studies. Data interpreted: Pulse oximetry: on room air is 97 %. Interpretation: normal. Counseling: I had a detailed discussion with the patient and/or guardian regarding: the historical points, exam findings, and any diagnostic results supporting the discharge/admit diagnosis, radiology results, the need for outpatient follow up, to return to the emergency department if symptoms worsen or persist or if there are any questions or concerns that arise at home. ED course: Discussed X-rays , PE findings with patient. Patient to follow up with Dr Blancas in 2-3 days. Patient understands/ agrees with plan. All questions answered. Return precautions given to include worsening symptoms, or any other concerns. Patient is improved, in NAD, non-toxic appearing, ambulatory in ED, speaking full sentences.. 03/31 14:14 Order name: Knee Right 3 View XRAY; Complete Time: 15:37 ms3 03/31 14:14 Order name: Lumbar Spine (3 Views) XRAY; Complete Time: 15:37 ms3 Administered Medications: 14:18 Drug: HYDROcodone-acetaminophen 5 mg-325 mg 1 tabs Route: PO; iw 16:14 Follow up: Response: No adverse reaction; Marked relief of symptoms jb4 14:18 Drug: Valium (diazepam) 5 mg Route: PO; iw 16:14 Follow up: Response: No adverse reaction; Marked relief of symptoms jb4 Disposition Summary: 03/31/22 15:57 Discharge Ordered Location: Home ms3 Condition: Stable ms3 Diagnosis - Pain in right knee ms3 - Low back pain ms3 Followup: ms3 - With: Gagan Blancas MD - When: 2 - 3 days - Reason: Recheck today's complaints Discharge Instructions: - Discharge Summary Sheet ms3 - Acute Back Pain, Adult ms3 Forms: - Medication Reconciliation Form ms3 - Thank You Letter ms3 - Work release form jb4 - Antibiotic Education ms3 - Prescription Opioid Use ms3 Prescriptions: - Cyclobenzaprine 5 mg Oral Tablet - take 1 tablet by ORAL route 3 times per day As needed; 15 tablet; Refills: 0, ms3 Product Selection Permitted Signatures: Dispatcher [employer] EDMS Veronica Mcdermott RN RN iw Roland Us DO DO ms3 Alia Chang RN RN ld1 Peter Charles RN jb4 Corrections: (The following items were deleted from the chart) 16:14 14:14 Urine Test ordered. ms3 iw 22:20 15:57 Counseling: I had a detailed discussion with the patient and/or guardian ms3 regarding: the historical points, exam findings, and any diagnostic results supporting the discharge/admit diagnosis, radiology results, the need for outpatient follow up, to return to the emergency department if symptoms worsen or persist or if there are any questions or concerns that arise at home, ms3 22:20 15:57 ED course: Discussed xrays , PE findings with patient. Patient to follow up with ms3 PMD in 2-3 days. Patient understands/ agrees with plan. All questions answered. Return precautions given to include worsening symptoms, or any other concerns. Patient is improved, in NAD, non-toxic appearing, ambulatory in ED, speaking full sentences.. ms3
== END 2022-03-31 16:16 | disposition home or self-care (01) ==
LOC: ER 13:51
DX: M25.561 Pain in right knee (principal); M54.50 Low back pain, unspecified; Z88.0 Allergy status to penicillin; Z88.1 Allergy status to other antibiotic agents; Z91.040 Latex allergy status; Z91.048 Other nonmedicinal substance allergy status
CPT/HCPCS: 72100; 99283

== ENCOUNTER 2022-05-07 16:28 | Emergency (ER) | payer SELFPAY ==
[2022-05-07 17:07] LABS: Urine Blood Negative (Negative); Urine Glucose Negative (Negative); Urine Protein Negative (Negative); Urine Specific Gravity >=1.030 (1.005-1.030); Urine pH 5.5 (5.0-7.0)
[2022-05-07] MEDS ORDERED: METOCLOPRAMIDE 10 MG/2mL INJ ONE (17:09)
[2022-05-07] MEDS ORDERED: FAMOTIDINE 20 MG/2 ML VIAL IV ONE (17:09)
[2022-05-07] MEDS ORDERED: NA CHLORIDE 0.9% 1,000 ML ONE (17:10)
[2022-05-07 17:26] LABS: Absolute Lymphocytes (CBC) 1.9 K/uL (0.7-4.9); Hematocrit 36.1 % (36.0-45.0); Lymphocytes % 26.8 % (15.3-44.8); MCV 76.8 fL (80-100)
[2022-05-07 17:41] LABS: Bilirubin Total 0.3 mg/dL (0.2-1.0); Potassium 3.6 mmol/L (3.5-5.1); Protein, Total 7.7 g/dL (6.4-8.2)
--- NOTE | 2022-05-07 19:06 | RAD REPORT ---
EXAM DESCRIPTION: CT - Abdomen Pelvis W Contrast - 05/07/2022 6:55 pm CLINICAL HISTORY: Abdominal pain COMPARISON: January 2022 TECHNIQUE: Computed axial tomography of the abdomen pelvis was obtained. 100 cc Isovue-300 was admin istered intravenously. Oral contrast was not requested which limits evaluation of bowel and appendix All CT scans are performed using dose optimization technique as appropriate and may include automated exposure control or mA/KV adjustment according to patient size. FINDINGS: The liver, spleen, pancreas, adrenal and kidneys appear unremarkable. There is no evidence of diverticulitis. Normal appendix. Small umbilical hernia. Small hiatal hernia No adnexal mass IMPRESSION: No acute abnormality is displayed.
--- NOTE | 2022-05-07 19:06 | RAD REPORT ---
EXAM DESCRIPTION: US - Abdomen Exam Limited - 05/07/2022 6:03 pm CLINICAL HISTORY: Abdominal pain. COMPARISON: November 2021 FINDINGS: Contracted gallbladder. This does limit evaluation for gallstones. A gallstone is not seen . Gallbladder wall is not thickened. The biliary tree is normal caliber. IMPRESSION: Contracted gallbladder.
--- NOTE | 2022-05-07 19:40 | ER ---
Nurse's Notes [facility] Name: Genesis Hu Age: 31 yrs Sex: Female : 1990 Arrival Date: 05/07/2022 Time: 16:31 Bed 14 Private MD: Diagnosis: Abdominal pain, unspecified Presentation: 05/07 16:39 Chief complaint: Patient states: RUQ pain that has been ongoing for 2 years, is getting ss worse. Pt reports she is gaining wait and her breasts are growing. She is unsure if it is her peptic ulcers she has a history of or perhaps an ectopic . Coronavirus screen: Client denies travel out of the [place] in the last 14 days. Ebola Screen: Patient denies exposure to infectious person. Patient denies travel to an Ebola-affected area in the 21 days before illness onset. Initial Sepsis Screen: Does the patient meet any 2 criteria? No. Patient's initial sepsis screen is negative. Does the patient have a suspected source of infection? No. Patient's initial sepsis screen is negative. Risk Assessment: Do you want to hurt yourself or someone else? Patient reports no desire to harm self or others. Onset of symptoms is unknown. 16:39 Method Of Arrival: Ambulatory ss 16:39 Acuity: KRISTIN 3 ss Triage Assessment: 19:00 General: Appears in no apparent distress. Behavior is appropriate for age. GI: Reports. ke1 Historical: - Allergies: 16:48 Amoxicillin; ss 16:48 Bleach (Sodium Hypochlorite); ss 16:48 Latex, Natural Rubber; ss 16:48 PENICILLINS; ss - PMHx: 16:48 hiatal hernia; PCOS; peptic ulcer; ss - PSHx: 16:48 section; tubal ligation; ss - Immunization history:: Client reports having NOT received the Covid vaccine. - Social history:: Smoking status: Patient denies any tobacco usage or history of. Screenin:56 Abuse screen: Denies threats or abuse. Denies injuries from another. Nutritional ld1 screening: No deficits noted. Tuberculosis screening: No symptoms or risk factors identified. Fall Risk None identified. Assessment: 18:56 Reassessment: See triage assessment. ld1 19:30 Pain: Complains of pain in right lower quadrant and right upper quadrant Pain currently ke1 is 8 out of 10 on a pain scale. GI: Abdomen is round Bowel sounds present X 4 quads. Vital Signs: 16:39 BP 130 / 89; Pulse 108; Resp 16; Temp 98.4(O); Pulse Ox 100% on R/A; Weight 99.79 kg; ss Height 5 ft. 6 in. (167.64 cm); Pain 10/10; 17:41 BP 123 / 85; Pulse 81; Resp 18; Pulse Ox 99% on R/A; ld1 18:56 BP 129 / 86; Pulse 84; Resp 18; Pulse Ox 100% on R/A; ld1 16:39 Body Mass Index 35.51 (99.79 kg, 167.64 cm) ED Course: 16:31 Patient arrived in ED. rg4 16:33 Roge Mario PA is PHCP. jmm 16:33 Roland Us DO is Attending Physician. jmm 16:48 Triage completed. 17:00 Alia Chang, RN is Primary Nurse. ld1 17:02 SARS-COV-2 RT PCR (Document "Date of Onset" if Symptomatic) Sent. bh1 18:05 US Abdomen Limited In Process Unspecified. EDMS 18:56 No provider procedures requiring assistance completed. Inserted saline lock: 20 gauge ld1 in right antecubital area, using aseptic technique. Blood collected. 18:56 Patient has correct armband on for positive identification. Placed in gown. Bed in low ld1 position. Call light in reach. Side rails up X2. ekg monitor on. Pulse ox on. NIBP on. Door closed. Noise minimized. Warm blanket given. 18:57 CT Abd/Pelvis - IV Contrast Only In Process Unspecified. EDMS 20:11 IV discontinued. ke1 Administered Medications: 17:14 Drug: NS 0.9% 1000 ml Route: IV; Rate: 1 bolus; Site: right antecubital; ld1 17:14 Drug: Reglan (metoCLOPramide) 20 mg Route: IVP; Site: right antecubital; ld1 17:14 Drug: Pepcid (famotidine) 20 mg Route: IVP; Site: right antecubital; ld1 19:42 Drug: Ketorolac 30 mg Route: IVP; Site: right antecubital; ke1 19:43 Follow up: Response: Medication administered at discharge. ke1 20:11 Follow up: Response: Marked relief of symptoms ke1 19:42 Drug: morphine 4 mg Route: IVP; Infused Over: 4 mins; Site: right antecubital; ke1 19:43 Follow up: Response: Medication administered at discharge. ke1 20:11 Follow up: Response: Marked relief of symptoms ke1 Medication: 18:56 VIS not applicable for this client. ld1 Outcome: 19:39 Discharge ordered by MD. madden 20:11 Discharged to home ambulatory. ke1 20:11 Condition: good 20:11 Discharge instructions given to patient. 20:12 Patient left the ED. ke1 Signatures: Dispatcher [employer] EDMS Roge Mario PA PA jmm Smirch, Shelby RN RN Bridget Cuevas4 Alia Chang RN RN ld1 Bunny Easley RN RN ke1 Vashti Collier RN RN 1
--- NOTE | 2022-05-07 19:40 | EDPHYS ---
Physician Documentation [facility] Name: Genesis Hu Age: 31 yrs Sex: Female : 1990 Arrival Date: 05/07/2022 Time: 16:31 Bed 14 Private MD: ED Physician Roland Us HPI: 05/07 16:53 This 31 yrs old Female presents to ER via Ambulatory with complaints of Vomiting. jmm 16:53 The patient presents to the emergency department with nausea, vomiting, abdominal pain. jmm Onset: The symptoms/episode began/occurred gradually, 2 year(s) ago. Possible causes: unknown. The symptoms are aggravated by nothing. The symptoms are alleviated by nothing. This is a 31 year old female with a history of pcos, that presents to the ED with complaints of right sided abdominal pain, vomiting which has been chronic but progressively worsening. Patient has visited the ER multiple times. Patient is currently taking sucralfate and imeprazole without relief. Historical: - Allergies: 16:48 Amoxicillin; ss 16:48 Bleach (Sodium Hypochlorite); ss 16:48 Latex, Natural Rubber; ss 16:48 PENICILLINS; ss - PMHx: 16:48 hiatal hernia; PCOS; peptic ulcer; ss - PSHx: 16:48 section; tubal ligation; ss - Immunization history:: Client reports having NOT received the Covid vaccine. - Social history:: Smoking status: Patient denies any tobacco usage or history of. ROS: 19:36 Constitutional: Negative for fever, chills, and weight loss, Cardiovascular: Negative jmm for chest pain, palpitations, and edema, Respiratory: Negative for shortness of breath, cough, wheezing, and pleuritic chest pain. 19:36 Abdomen/GI: Positive for abdominal pain, nausea and vomiting. 19:36 All other systems are negative. Exam: 19:36 Constitutional: This is a well developed, well nourished patient who is awake, alert, jmm and in no acute distress. Head/Face: atraumatic. Eyes: EOMI, no conjunctival erythema appreciated ENT: Moist Mucus Membranes Neck: Trachea midline, Supple Chest/axilla: Normal chest wall appearance and motion. Cardiovascular: Regular rate and rhythm. No edema appreciated Respiratory: Normal respirations, no respiratory distress appreciated 19:36 Back: Normal ROM Skin: General appearance color normal MS/ Extremity: Moves all extremities, no obvious deformities appreciated, no edema noted to the lower extremities Neuro: Awake and alert Psych: Behavior is normal, Mood is normal, Patient is cooperative and pleasant 19:36 Abdomen/GI: Inspection: abdomen appears normal, Bowel sounds: normal, Palpation: soft, moderate abdominal tenderness, in the right upper quadrant and right lower quadrant. Vital Signs: 16:39 BP 130 / 89; Pulse 108; Resp 16; Temp 98.4(O); Pulse Ox 100% on R/A; Weight 99.79 kg; ss Height 5 ft. 6 in. (167.64 cm); Pain 10/10; 17:41 BP 123 / 85; Pulse 81; Resp 18; Pulse Ox 99% on R/A; ld1 18:56 BP 129 / 86; Pulse 84; Resp 18; Pulse Ox 100% on R/A; ld1 16:39 Body Mass Index 35.51 (99.79 kg, 167.64 cm) ss MDM: 16:58 Patient medically screened. [facility] 19:38 Data reviewed: vital signs, nurses notes. Counseling: I had a detailed discussion with chano the patient and/or guardian regarding: the historical points, exam findings, and any diagnostic results supporting the discharge/admit diagnosis, lab results, radiology results, the need for outpatient follow up, to return to the emergency department if symptoms worsen or persist or if there are any questions or concerns that arise at home. ED course: Patient is alert and non toxic in appearance in the ED. CT studies negative. Patient advised to follow up with pcp and otherwise given strict return precautions. patient understood and agrees with the plan of care. . 05/07 16:52 Order name: SARS-COV-2 RT PCR (Document "Date of Onset" if Symptomatic); Complete Time: [facility] 18:17 05/07 16:58 Order name: CBC with Diff; Complete Time: 17:28 [facility] 05/07 16:58 Order name: CMP; Complete Time: 17:41 [facility] 05/07 16:58 Order name: Lipase; Complete Time: 17:41 [facility] 05/07 17:07 Order name: Urine Dipstick-Ancillary; Complete Time: 17:07 [facility] 05/07 17:19 Order name: US Abdomen Limited; Complete Time: 19:25 [facility] 05/07 17:42 Order name: CT Abd/Pelvis - IV Contrast Only; Complete Time: 19:25 [facility] 05/07 16:58 Order name: IV Saline Lock; Complete Time: 17:14 [facility] 05/07 16:58 Order name: Labs collected and sent; Complete Time: 17:14 [facility] 05/07 16:59 Order name: Urine Dipstick-Ancillary (obtain specimen); Complete Time: 17:14 [facility] 05/07 16:59 Order name: Urine Test (obtain specimen); Complete Time: 17:14 [facility] Administered Medications: 17:14 Drug: NS 0.9% 1000 ml Route: IV; Rate: 1 bolus; Site: right antecubital; ld1 17:14 Drug: Reglan (metoCLOPramide) 20 mg Route: IVP; Site: right antecubital; ld1 17:14 Drug: Pepcid (famotidine) 20 mg Route: IVP; Site: right antecubital; ld1 19:42 Drug: Ketorolac 30 mg Route: IVP; Site: right antecubital; ke1 19:43 Follow up: Response: Medication administered at discharge. ke1 20:11 Follow up: Response: Marked relief of symptoms ke1 19:42 Drug: morphine 4 mg Route: IVP; Infused Over: 4 mins; Site: right antecubital; ke1 19:43 Follow up: Response: Medication administered at discharge. ke1 20:11 Follow up: Response: Marked relief of symptoms ke1 Disposition: 05/08 13:55 Co-signature as Attending Physician, Roland MADSEN was immediately available on-site ms3 in the Emergency Department for consultation in the care of the patient.. Disposition Summary: 05/07/22 19:39 Discharge Ordered Location: Home [facility] Condition: Stable [facility] Diagnosis - Abdominal pain, unspecified m Followup: [facility] - With: Private Physician - When: 2 - 3 days - Reason: Recheck today's complaints, Continuance of care, Re-evaluation by your physician Discharge Instructions: - Discharge Summary Sheet [facility] - Abdominal Pain, Adult [facility] Forms: - Medication Reconciliation Form [facility] - Thank You Letter [facility] - Antibiotic Education [facility] - Prescription Opioid Use [facility] Prescriptions: - Carafate 1 gram Oral Tablet - take 1 tablet by ORAL route 4 times per day take on an empty stomach, beginning jmm on waking and last dose at bedtime; 100 tablet; Refills: 0, Product Selection Permitted - omeprazole 40 mg Oral capsule,delayed release(DR/EC) - take 1 capsule by ORAL route once daily before a meal; 30 capsule; Refills: 0, jmm Product Selection Permitted - ondansetron 4 mg Oral tablet,disintegrating - take 1 tablet by ORAL route every 4-6 hours; 20 tablet; Refills: 0, Product [facility] Selection Permitted Signatures: Dispatcher [employer] Roge Alfonso PA PA jmm Smirch, Shelby, RN RN ss Roland Us DO DO ms3 Alia Chang RN RN ld1 Bunny Easley RN RN ke1
[2022-05-07] MEDS ORDERED: MORPHINE 4 MG/ML SYR ONE (19:41)
[2022-05-07] MEDS ORDERED: KETOROLAC 30 MG/ML INJ ONE (19:41)
[2022-05-07 21:04] VITALS: TEMP 98.4
[2022-05-07 21:07] VITALS: BP 129/86; O2SAT 100
== END 2022-05-07 20:12 | disposition home or self-care (01) ==
LOC: ER 16:28
DX: R10.9 Unspecified abdominal pain (principal); R11.2 Nausea with vomiting, unspecified; Z88.0 Allergy status to penicillin; Z88.1 Allergy status to other antibiotic agents; Z91.040 Latex allergy status; Z91.048 Other nonmedicinal substance allergy status
CPT/HCPCS: 36415; 74177; 76705; 80053; 81003; 83690; 85025; J2765; J3490; J7030; Q9967; U0003

== ENCOUNTER 2022-05-18 14:34 | Emergency (ER) | payer SELFPAY ==
--- NOTE | 2022-05-18 17:25 | ER ---
Nurse's Notes [facility] Name: Genesis Hu Age: 31 yrs Sex: Female : 1990 Arrival Date: 05/18/2022 Time: 14:34 Bed Waiting Private MD: Diagnosis: Acute upper respiratory infection, unspecified Presentation: 05/18 15:37 Chief complaint: Patient states: fatigue, cough, and NV x 2 days. Coronavirus screen: vg1 Vaccine status: Patient reports being unvaccinated. Client denies travel out of the [place] in the last 14 days. Ebola Screen: Patient denies exposure to infectious person. Patient denies travel to an Ebola-affected area in the 21 days before illness onset. Initial Sepsis Screen: Does the patient meet any 2 criteria? No. Patient's initial sepsis screen is negative. Does the patient have a suspected source of infection? No. Patient's initial sepsis screen is negative. Risk Assessment: Do you want to hurt yourself or someone else? Patient reports no desire to harm self or others. Onset of symptoms was April 16, 2022. 15:37 Method Of Arrival: Ambulatory [facility] 15:37 Acuity: KRISTIN 4 vg1 Triage Assessment: 15:40 General: Appears uncomfortable, Behavior is cooperative. Pain: Complains of pain in vg1 back Pain currently is 7 out of 10 on a pain scale. Respiratory: Airway is patent Respiratory effort is even, unlabored. 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 - Social history:: Smoking status: Patient denies any tobacco usage or history of. Screenin:40 Abuse screen: Denies threats or abuse. Nutritional screening: No deficits noted. vg1 Tuberculosis screening: No symptoms or risk factors identified. Fall Risk None identified. Assessment: 17:39 Reassessment: Patient appears in no apparent distress at this time. No changes from vg1 previously documented assessment. Patient and/or family updated on plan of care and expected duration. Pain level reassessed. Patient is alert, oriented x 3, equal unlabored respirations, skin warm/dry/pink. Vital Signs: 15:37 BP 120 / 83; Pulse 99; Resp 18; Temp 98.3(O); Pulse Ox 100% ; Weight 99.79 kg; Height 5 vg1 ft. 6 in. (167.64 cm); Pain 7/10; 15:37 Body Mass Index 35.51 (99.79 kg, 167.64 cm) vg1 ED Course: 14:34 Patient arrived in ED. as 15:01 Charity Bates [facility]-C [facility]. kb 15:01 Roland Us DO is Attending Physician. kb 15:40 Triage completed. vg1 15:40 Arm band placed on. vg1 15:41 COVID swab sent to lab. Flu and/or RSV swab sent to lab. vg1 17:40 Patient has correct armband on for positive identification. vg1 17:40 No provider procedures requiring assistance completed. Patient did not have IV access vg1 during this emergency room visit. Administered Medications: No medications were administered Medication: 17:40 VIS not applicable for this client. vg1 Outcome: 17:24 Discharge ordered by . kb 17:40 Discharged to home ambulatory, with family. vg1 17:40 Condition: good 17:40 Discharge instructions given to patient, Instructed on discharge instructions, follow up and referral plans. Demonstrated understanding of instructions, follow-up care. 17:40 Patient left the ED. vg1 Signatures: Charity Bates FNP-C FNP-Ckb Martinez, Amelia as Garcia, Victoria, RN RN vg1
--- NOTE | 2022-05-18 17:25 | EDPHYS ---
Physician Documentation [facility] Name: Genesis Hu Age: 31 yrs Sex: Female : 1990 Arrival Date: 05/18/2022 Time: 14:34 Bed Waiting Private MD: ED Physician Roland Us HPI: 05/18 15:59 This 31 yrs old Female presents to ER via Ambulatory with complaints of r/o covid. kb 15:37 Pt reports fatigue, headache, chills, malaise, cough, vomiting, shortness of breath for kb 2 days. . 15:59 The patient or guardian reports cough, that is intermittent, described as moderate, flu kb symptoms, low-grade fever, myalgias, no appetite. Onset: The symptoms/episode began/occurred 2 day(s) ago. Severity of symptoms: At their worst the symptoms were moderate, in the emergency department the symptoms are unchanged. Modifying factors: The symptoms are alleviated by nothing, the symptoms are aggravated by nothing. Associated signs and symptoms: Pertinent positives: vomiting. The patient has not experienced similar symptoms in the past. The patient has not recently seen a physician. 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 - Social history:: Smoking status: Patient denies any tobacco usage or history of. ROS: 16:00 Cardiovascular: Negative for chest pain, palpitations, and edema. kb 16:00 Constitutional: Positive for body aches, chills, fatigue, malaise. 16:00 Respiratory: Positive for cough, shortness of breath, Negative for dyspnea on exertion, hemoptysis, orthopnea, pleurisy, sputum production, wheezing. 16:00 Abdomen/GI: Positive for nausea and vomiting, Negative for abdominal pain. 16:00 Neuro: Positive for headache. 16:00 All other systems are negative. Exam: 16:00 Constitutional: This is a well developed, well nourished patient who is awake, alert, kb and in no acute distress. Head/Face: Normocephalic, atraumatic. ENT: Moist Mucous membranes Cardiovascular: Regular rate and rhythm with a normal S1 and S2. No gallops, murmurs, or rubs. No pulse deficits. Respiratory: Respirations even and unlabored. No increased work of breathing. Talking in full sentences Abdomen/GI: Soft, non-tender. No distention Skin: Warm, dry with normal turgor. Normal color. MS/ Extremity: Pulses equal, no cyanosis. Neurovascular intact. Full, normal range of motion. Neuro: Awake and alert, GCS 15, oriented to person, place, time, and situation. Moves all extremities. Normal gait. Psych: Awake, alert, with orientation to person, place and time. Behavior, mood, and affect are within normal limits. Vital Signs: 15:37 BP 120 / 83; Pulse 99; Resp 18; Temp 98.3(O); Pulse Ox 100% ; Weight 99.79 kg; Height 5 vg1 ft. 6 in. (167.64 cm); Pain 7/10; 15:37 Body Mass Index 35.51 (99.79 kg, 167.64 cm) vg1 MDM: 15:37 Patient medically screened. kb 15:59 Data reviewed: vital signs, nurses notes. Data interpreted: Pulse oximetry: on room air kb is 100 %. Interpretation: normal. 17:24 Counseling: I had a detailed discussion with the patient and/or guardian regarding: the kb historical points, exam findings, and any diagnostic results supporting the discharge/admit diagnosis, lab results, the need for outpatient follow up, a family practitioner, to return to the emergency department if symptoms worsen or persist or if there are any questions or concerns that arise at home. 05/18 15:39 Order name: Flu; Complete Time: 16:33 kb 05/18 15:39 Order name: COVID-19 SARS RT PCR (Document "Date of Onset" if Symptomatic); Complete kb Time: 17:24 Administered Medications: No medications were administered Disposition: 22:09 Co-signature as Attending Physician, Roland MADSEN was immediately available on-site ms3 in the Emergency Department for consultation in the care of the patient. . Disposition Summary: 05/18/22 17:24 Discharge Ordered Location: Home kb Condition: Stable kb Diagnosis - Acute upper respiratory infection, unspecified kb Followup: kb - With: Emergency Department - When: As needed - Reason: Worsening of condition Followup: kb - With: Private Physician - When: 2 - 3 days - Reason: Recheck today's complaints, Continuance of care, Re-evaluation by your physician Discharge Instructions: - Discharge Summary Sheet kb - Upper Respiratory Infection, Adult, [id number] kb - Viral Respiratory Infection, [id number] kb Forms: - Medication Reconciliation Form kb - Thank You Letter kb - Antibiotic Education kb - Prescription Opioid Use kb Signatures: Dispatcher [employer] EDCharity Mckinney, MEDICAL TRANSCRIPTION SUPERVISOR-C MEDICAL TRANSCRIPTION SUPERVISOR-Rosalind Villar, RN RN vg1 Roland Us DO DO ms3
[2022-05-18 17:58] VITALS: BP 120/83; TEMP 98.3; O2SAT 100
== END 2022-05-18 17:40 | disposition home or self-care (01) ==
LOC: ER 14:34
DX: J06.9 Acute upper respiratory infection, unspecified (principal); Z20.822 Contact with and (suspected) exposure to COVID-19; Z88.0 Allergy status to penicillin; Z91.040 Latex allergy status; Z91.048 Other nonmedicinal substance allergy status
CPT/HCPCS: 87804; 99283; U0003

== ENCOUNTER 2022-06-07 15:27 | Emergency (ER) | payer SELFPAY ==
--- OUTSIDE RECORDS SUMMARY | 2022-06-07 15:32 | XMS REPORT | Continuity of Care Document ---
:1990 Author Organization [facility] t Address [address] [place] [address] Care Team Providers Name Role Phone Pcp, Patient Does Not Have A Primary Care Physician [id number] FARZANEH BO Attending Clinician Unavailable Farzaneh Bo NP Attending Clinician JAYY AARON Attending Clinician Unavailable Jayy Brandt Attending Clinician SRIDHAR MATA Attending Clinician Unavailable Sridhar Mata DO Attending Clinician LATHA WINSTON Attending Clinician Unavailable Latha Winston DO Attending Clinician Kyra Sweeney Attending Clinician Jack Brower MD Attending Clinician JACK BROWER Attending Clinician Unavailable Kyra MEDEIROS Attending Clinician Unavailable Anjali Merida PA-C Attending Clinician ANJALI MERIDA Attending Clinician Unavailable Doctor Unassigned, [place] Attending Clinician Unavailable Jose David Valle MD Attending Clinician Payers Payer Name Policy Type Policy Number Effective Date Expiration Date S hanane MEDICAID PENDING PENDING 2021 00:00:00 Problems Condition Condition Condition Status Onset Resolution Last Treating Co mments Source Name Details Category Date Date Treatment Clinician Date Abdominal Abdominal Disease Active Overview: Univers pain pain 07-28 Formattin ity of 00:00: g of this [place] note Medical might be Branch different from the original. 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 1 hr- 47 Immune to Immune to Disease Active Uni vers varicella varicella 07-05 ity of 00:00: [place] 00 Medical Branch High-risk High-risk Disease Active Overview: Univers 06-30 Formattin i ty of 00:00: g of this [place] 00 note Medical might be Branch different from the original. Medical records received. [facility]. DOS- 0. CC: 30 weeks w/ twins, vomiting black liquid. No evidence of hepatitis , pancreati tis, or liver dysfuncti on. Physiolog ic anemia. No UTI or ketonuria . 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 Medical records- 0- IUP at 33 weeks. Dichorion ic, diamnioti c twin gestation . presentat ion Vertex and transvers e. PTL. Primary low transvers e via Pfannenst iel incision. Right dermoid cystectom y. Bipolar Bipolar Disease Active Univers disorder disorder 830 ity of 00:00: [place] 00 Medical Branch Family Family Disease Active Overview: Univer s history of history of 830 Formattin ity of congenital congenital 00:00: g of this [place] anomalies anomalies 00 note Medi denzel might be Branch different from the original. Detailed US and Genetics. Mother born with spinal bifida ocarta and hole in the heart and born with heart murmur History of History of Disease Active Overview : Univers 8-30 Formattin ity o f labor labor 00:00: g of this [place] 00 note Medical might be Branch different from the original. Delivered at 28 week via for PTL -Twins. Send to [facility] at 16 weeks Pain Pain Disease Active Univers pelvic pelvic 06-30 ity of 00:00: [place] 00 Medical Branch Rubella Rubella Disease Active Univers immune immune 830 ity of 00:00: Medical Branch Allergies, Adverse Reactions, Alerts Allergy Allergy Status Severity Reaction(s) Onset Inactive Treating Comm ents Source Name Type Date Date Clinician LATEX DRUG Active ITCHING Univers INGREDI 7-09 ity of 00:00: [place] 00 Medical Branch NUDIT DRUG Active Swelling Univers BLEACH 7-09 ity of 00:00: [place] 00 Medical Branch Latex Propensi Active Itching Univers ty to 7-09 ity of adverse 00:00: [place] reaction Medical s Branch Nudit Propensi Active Swelling Univer s Bleach ty to 7-09 ity of adverse 00:00: [place] reaction Medical s Branch AMOXICIL DRUG Active Anaphylaxis 2016- Uni vers DAVY INGREDI 3-11 ity of 00:00: [place] 00 Medical Branch Amoxicil Propensi Active Anaphylaxis 2017-0 U nivers davy ty to 3-11 ity of adverse 00:00: [place] reaction 00 Medical s Branch PENICILL DRUG Active Anaphylaxis 2015-11 Uni vers IN INGREDI 2-14 ity of 00:00: [place] 00 Medical Branch Penicill Propensi Active Anaphylaxis 2016- U nivers in ty to 2-14 ity of adverse 00:00: [place] reaction 00 Medical s Branch BEE DRUG Active Unknown-Cmnt Univ ers POLLEN INGREDI 1-31 ity of 00:00: [place] [id number] Medical Branch Bee Propensi Active Unknown - Unive rs Pollen ty to See comments 12-01 ity of adverse 00:00: [place] reaction 00 Medical s Branch Social History Social Habit Start Date Stop Date Quantity Comments Source Alcohol intake 2022-05-10 2022-05-10 Current University 00:00:00 00:00:00 non-drinker of [facility] alcohol [place] (finding) Exposure to 2022-04-29 2022-05-09 Not sure [facility] SARS-CoV-2 00:00:00 21:36:00 [facility] (event) Branch Tobacco use and 2013-06-30 2013-06-30 Never used Universit y of exposure 00:00:00 00:00:[address] [facility] Sex Ass[birth year] At [birth year] Universit y of 00:00:00 00:00:[address] [facility] Smoking Status Start Date Stop Date Source Never smoker [facility] Medications Ordered Filled Start Stop Current Ordering Indication Dosage Frequency Signature Comments Components Source Medication Medication Date Date Medication? Clinician (SIG) Name Name dicyclomine No 20mg 20 mg, Uni vers (BENTYL) 05-10 Intramuscu ity of injection 04:15: 03:38 lar, ONCE, [place] 20 mg 00 :00 1 dose, On Medical 05/09/22 Branch at 2315, Routine dicyclomine Yes [id number] 20mg Take 1 Univers 20 mg -10 tablet by ity of tablet 00:00: mouth 4 [place] 00 (four) Medical times Branch daily as needed for Abdominal pain. ferrous 2021- No 1{tbl} Take 1 Unive rs sulfate/vit 05-09 tablet by it y of C/folic ac 23:56: 00:00 mouth [place] (FERROUS 54 :00 daily. Medical SULFATE-C-F Branch OLIC ACID ORAL) dicyclomine 2021- No [id number] 20mg Take 1 Univers 20 mg 05-09 tablet by ity of tablet 00:00: 00:00 mouth 4 [place] 00 :00 (four) Medical times [place] daily as needed for Abdominal pain. clarithromy Yes [id number] 500mg Take 1 Univers dominique 500 mg 2-23 tablet by ity of tablet 00:00: mouth [place] 00 every 12 Medical (twelve) Branch hours. pantoprazol Yes [id number] 40mg Take 1 Univers e 40 mg EC 2-23 tablet by ity of tablet 00:00: mouth [place] 00 daily. Medical Branch pantoprazol Yes [id number] 40mg Take 1 Univers e 40 mg EC 2-23 tablet by ity of tablet 00:00: mouth [place] 00 daily. Medical Branch clarithromy 2021- No [id number] 500mg Take 1 Univers dominique 500 mg 2-23 -09 tablet by ity of tablet 00:00: 00:00 mouth [place] 00 :00 every 12 Medical (twelve) Branch hours. sucralfate 2021- No [id number] 1g Take 1 Univers 1 gram 2-23 - tablet by ity of tablet 00:00: 04:59 mouth [place] 00 :00 before Medical meals and Branch at bedtime for 30 days. metroNIDAZO 2021- No [id number] 500mg Take 1 Univers LE 500 mg 2-23 -10 tablet by ity of tablet 00:00: 05:59 mouth [place] 00 :00 every 8 Medical (eight) Branch hours for 14 days. sucralfate 2021- No [id number] 1g Take 1 Univers 1 gram 2-23 - tablet by ity of tablet 00:00: 00:00 mouth [place] 00 :00 before Medical meals and Branch at bedtime. maalox:diph 2021- No 15mL 15 mL, Uni vers enhydrAMINE 2 02- Oral, ity of :lidocaine 21:30: 20:30 ONCE, 1 [place] as 2 % viscous 00 :00 dose, On Medi denzel 1:1:1 12/08/21 Branch (FIRST-MOUT at 1530, [facility]) Routine oral suspension 15 mL sucralfate Yes [id number] 1g Take 1 U nivers 1 gram 2-07 tablet by ity of tablet 00:00: mouth [place] 00 before Medical meals and Branch at bedtime. dicyclomine Yes [id number] 10mg Take 1 Univers (BENTYL) 10 2-07 capsule by it y of mg capsule 00:00: mouth [place] 00 every 8 Medical (eight) Branch hours as needed for Abdominal pain. ondansetron Yes [id number] 4mg Take 1 Univers 4 mg 2-07 tablet by ity of disintegrat 00:00: mouth [place] ing tablet 00 every 8 Medica l (eight) Branch hours as needed for Nausea and Vomiting (N/V). dicyclomine Yes [id number] 10mg Take 1 Univers (BENTYL) 10 2-07 capsule by it y of mg capsule 00:00: mouth [place] 00 every 8 Medical (eight) Branch hours as needed for Abdominal pain. ondansetron Yes [id number] 4mg Take 1 Univers 4 mg 2-07 tablet by ity of disintegrat 00:00: mouth [place] ing tablet 00 every 8 Medica l (eight) Branch hours as needed for Nausea and Vomiting (N/V). ondansetron Yes [id number] 4mg Take 1 Univers 4 mg 2-07 tablet by ity of disintegrat 00:00: mouth [place] ing tablet 00 every 8 Medica l (eight) Branch hours as needed for Nausea and Vomiting (N/V). dicyclomine 2021- No [id number] 10mg Take 1 Univers (BENTYL) 10 2-05 07-09 capsule by i ty of mg capsule 00:00: 00:00 mouth [place] 00 :00 every 8 Medical (eight) Branch hours as needed for Abdominal pain. omeprazole 2021- No [id number] 20mg Take 1 Univers 20 mg 2-10 capsule by ity of capsule 00:00: 05:59 mouth [place] 00 :00 daily for Medical 30 days. Branch omeprazole 2021- No [id number] 20mg Take 1 Univers 20 mg 2- 03-10 capsule by ity of capsule 00:00: 05:59 mouth [place] 00 :00 daily for Medical 30 days. Branch sucralfate 2021- No [id number] 1g Take 1 Univers 1 gram 2-05 02- tablet by ity of tablet 00:00: 00:00 mouth [place] 00 :00 before Medical meals and Branch at bedtime. bismuth-met 2021- No [id number] 3{capsu Take 3 Univers ronidazole- 2-07 - le} capsules ity of tetracyclin 00:00: 05:59 by mouth [place] e 00 :00 before Medical 140-125-125 meals and Bra nch mg per at bedtime capsule for 14 days. pantoprazol 2020-11 Yes [id number] 40mg Take 1 Univers e 2-13 tablet by ity of (PROTONIX) 00:00: mouth [place] 40 mg EC 00 daily. Medical tablet Branch pantoprazol 2020-11 Yes [id number] 40mg Take 1 Univers e 2-13 tablet by ity of (PROTONIX) 00:00: mouth [place] 40 mg EC 00 daily. Medical tablet Branch pantoprazol 2020-11- No [id number] 40mg Take 1 Univers e 2-13 - tablet by ity of (PROTONIX) 00:00: 00:00 mouth [place] 40 mg EC 00 :00 daily. Medical tablet Branch sucralfate 2020-11- No [id number] 1g Take 1 Univers 1 gram 2-13 -13 tablet by ity of tablet 00:00: 05:59 mouth [place] 00 :00 before Medical meals and Branch at bedtime for 30 days. dicyclomine 2020-11 Yes 10mg 10 mg, Univ ers (BENTYL) 11-23 Oral, QID, ity o f capsule 10 18:00: First dose [place] mg 00 on [facility] 09/23/21 Branch at 1200, Until Discontinu ed, Routine sucralfate 2020-11 Yes 1g 1 g, Oral, U nivers (CARAFATE) 11-23 AC+HS, ity of tablet 1 g 17:30: First dose [place] 00 on [facility] 09/23/21 Branch at 1130, Until Discontinu ed, Routine pantoprazol 2020-11- No 40mg 40 mg, Uni vers e 11-23 Slow IV ity of (PROTONIX) 15:45: 15:00 Push, [place] injection 00 :00 ONCE, 1 Medical 40 mg dose, On Branch [facility] 09/23/21 at 0945 dicyclomine 2020-11 Yes [id number] 10mg Take 1 Univers (BENTYL) 10 11-23 capsule by it y of mg capsule 00:00: mouth [place] 00 every 8 Medical (eight) Branch hours as needed for Abdominal pain. ondansetron 2020-11 Yes [id number] 4mg Take 1 Univers 4 mg 1-23 tablet by ity of disintegrat 00:00: mouth [place] ing tablet 00 every 8 Medica l (eight) Branch hours as needed for Nausea and Vomiting (N/V). sucralfate 2020-11 Yes [id number] 1g Take 1 U nivers 1 gram 1-23 tablet by ity of tablet 00:00: mouth [place] 00 before Medical meals and Branch at bedtime. dicyclomine 2020-11 Yes [id number] 10mg Take 1 Univers (BENTYL) 10 -23 capsule by it y of mg capsule 00:00: mouth [place] 00 every 8 Medical (eight) Branch hours as needed for Abdominal pain. ondansetron 2020-11 Yes [id number] 4mg Take 1 Univers 4 mg 1-23 tablet by ity of disintegrat 00:00: mouth [place] ing tablet 00 every 8 Medica l (eight) Branch hours as needed for Nausea and Vomiting (N/V). pantoprazol 2020-11 Yes [id number] 40mg Take 1 Univers e 1-23 tablet by ity of (PROTONIX) 00:00: mouth [place] 40 mg EC 00 daily. Medical tablet Branch dicyclomine 2020-11- No [id number] 10mg Take 1 Univers (BENTYL) 10 1-23 02-07 capsule by i ty of mg capsule 00:00: 00:00 mouth [place] 00 :00 every 8 Medical (eight) Branch hours as needed for Abdominal pain. ondansetron 2020-11- No [id number] 4mg Take 1 Univers 4 mg 1-23 02-07 tablet by ity of disintegrat 00:00: 00:00 mouth [place] ing tablet 00 :00 every 8 Medica l (eight) Branch hours as needed for Nausea and Vomiting (N/V). sucralfate 2020-11- No [id number] 1g Take 1 Univers 1 gram 1-23 12-13 tablet by ity of tablet 00:00: 00:00 mouth [place] 00 :00 before Medical meals and Branch at bedtime. pantoprazol 2020-11- No [id number] 40mg Take 1 Univers e 1-23 12-13 tablet by ity of (PROTONIX) 00:00: 00:00 mouth [place] 40 mg EC 00 :00 daily. Medical tablet Branch ciprofloxac Yes [id number] 500mg Take 1 Univers in HCl 500 1-25 tablet by ity of mg tablet 00:00: mouth 2 [place] 00 (two) Medical times Branch daily. ciprofloxac 2020- No [id number] 500mg Take 1 Univers in HCl 500 1-25 12-13 tablet by ity of mg tablet 00:00: 00:00 mouth 2 [place] 00 :00 (two) Medical times Branch daily. ondansetron 2020- No [id number] 4mg Take 1 Univers (ZOFRAN 1-25 -23 tablet by ity of ODT) 4 mg 00:00: 00:00 mouth [place] disintegrat 00 :00 every 8 Medic al ing tablet (eight) Branch hours as needed for Nausea and Vomiting (N/V). cyclobenzap 2019-11 Yes [id number] 10mg Take 1 Univers rine 10 mg 1-11 tablet by ity of tablet 00:00: mouth 3 00 (three) Medical times Branch daily. cyclobenzap 2019-11 Yes [id number] 10mg Take 1 Univers rine 10 mg 1-11 tablet by ity of tablet 00:00: mouth 3 (three) Medical times Branch daily. cyclobenzap 2019-11 Yes [id number] 10mg Take 1 Univers rine 10 mg 1-11 tablet by ity of tablet 00:00: mouth 3 00 (three) Medical times Branch daily. cyclobenzap 2019-11 Yes [id number] 10mg Take 1 Univers rine 10 mg 1-11 tablet by ity of tablet 00:00: mouth 3 00 (three) Medical times Branch daily. ibuprofen 2019-11 Yes [id number] 600mg Take 1 Univers 600 mg 1-11 tablet by ity of tablet 00:00: mouth [place] 00 every 6 Medical (six) Branch hours as needed for Pain (scale 4-6). cyclobenzap 2019-11 Yes [id number] 10mg Take 1 Univers rine 10 mg 1-11 tablet by ity of tablet 00:00: mouth 3 00 (three) Medical times Branch daily. ibuprofen 2019-11- No [id number] 600mg Take 1 Univers 600 mg 1-11 [...] Branch OLIC ACID ORAL) bromphenira 2020-0 Yes [id number] 5mL Take 5 mL Univers mine-pseudo 4-04 by mouth 4 it y of ephedrine-D 00:00: (four) [place] M (BROMFED 00 times Medical DM) 2-30-10 daily as Bran ch mg/5 mL needed for syrup Congestion /Allergies or Cough. bromphenira 2020-0 Yes [id number] 5mL Take 5 mL Univers mine-pseudo 4-04 by mouth 4 it y of ephedrine-D 00:00: (four) [place] M (BROMFED 00 times Medical DM) 2-30-10 daily as Bran ch mg/5 mL needed for syrup Congestion /Allergies or Cough. bromphenira 2020-0 Yes [id number] 5mL Take 5 mL Univers mine-pseudo 4-04 by mouth 4 it y of ephedrine-D 00:00: (four) [place] M (BROMFED 00 times Medical DM) 2-30-10 daily as Bran ch mg/5 mL needed for syrup Congestion /Allergies or Cough. methylPREDN 2020-0 Yes [id number] Take by Univers ISolone 4 4-04 mouth ity of mg tablets 00:00: SEE-INSTRU [place] 00 CTIONS. Medical follow Branch package directions levoFLOXaci 2020-0 Yes [id number] 500mg Take 1 Univers n 4-04 tablet by ity of (LEVAQUIN) 00:00: mouth [place] 500 mg 00 every 24 Medical tablet (twenty-fo Branch ur) hours. bromphenira 2020-0 Yes [id number] 5mL Take 5 mL Univers mine-pseudo 4-04 by mouth 4 it y of ephedrine-D 00:00: (four) [place] M (BROMFED 00 times Medical DM) 2-30-10 daily as Bran ch mg/5 mL needed for syrup Congestion /Allergies or Cough. bromphenira 2020-0 2021- No [id number] 5mL Take 5 mL Univers mine-pseudo 4-04 07-09 by mouth 4 i ty of ephedrine-D 00:00: 00:00 (four) [place] as M (BROMFED 00 :00 times Medical DM) 2-30-10 daily as Bran ch mg/5 mL needed for syrup Congestion /Allergies or Cough. methylPREDN 2019-0 2020- No [id number] Take by Univers ISolone 4 4-04 12-13 mouth ity of mg tablets 00:00: 00:00 SEE-INSTRU [place] 00 :00 CTIONS. Medical follow Branch package directions levoFLOXaci 2020-0 2020- No [id number] 500mg Take 1 Univers n 4-04 12-13 tablet by ity of (LEVAQUIN) 00:00: 00:00 mouth [place] 500 mg 00 :00 every 24 Medical tablet (twenty-fo Branch ur) hours. Immunizations Ordered Filled Immunization Date Status Comments [facility] e Immunization Name Name Td 2016-04-30 Completed University of 00:00:[address] [facility] Td 2016-04-30 Completed University of 00:00:[address] [facility] Td 2016-04-30 Completed University of 00:00:[address] [facility] Td 2016-04-30 Completed University of 00:00:[address] [facility] Td 2016-04-30 Completed University of 00:00:[address] [facility] Rubella 2010-04-22 Completed University of 00:00:[address] [facility] Rubella 2010-04-22 Completed University of 00:00:[address] [facility] Rubella 2010-04-22 Completed University of 00:00:00 [facility] Branch Rubella 2010-04-22 Completed University of 00:00:00 [place] [facility] Rubella 2010-04-22 Completed University of 00:00:00 [place] [facility] Td 2006-06-30 Completed University of 00:00:00 [place] [facility] Td 2006-06-30 Completed University of 00:00:00 [place] [facility] Td 2006-06-30 Completed University of 00:00:00 [place] [facility] Td 2006-06-30 Completed University of 00:00:00 [place] [facility] Td 2006-06-30 Completed University of 00:00:00 [facility] Branch Vital Signs Vital Name Observation Time Observation Value Comments Source Systolic blood 2022-05-10 05:14:00 125 mm[Hg] Univer sity of pressure [facility] Diastolic blood 2022-05-10 05:14:00 81 mm[Hg] Unive rsity of [email or web address] Heart rate 2022-05-10 05:14:00 62 /min [facility] Respiratory rate 2022-05-10 05:14:00 17 /min [facility] Oxygen saturation in 2022-05-10 05:14:00 99 /min [facility] Arterial blood by [facility] Pulse oximetry [place] Body temperature 2022-05-10 02:44:00 36.44 Chelsea [facility] Body height 2022-05-10 02:44:00 167.6 cm [facility] Body weight 2022-05-10 02:44:00 103.828 kg [facility] BMI 2022-05-10 02:44:00 36.95 kg/m2 [facility] Systolic blood 2021-12-24 17:26:00 147 mm[Hg] Univer sity of pressure [facility] Diastolic blood 2021-12-24 17:26:00 80 mm[Hg] Unive rsity of pressure [facility] Heart rate 2021-12-24 17:26:00 71 /min [facility] Body temperature 2021-12-24 17:26:00 36.17 Chelsea [facility] 2021-12-24 17:26:00 18 /min [facility] Body weight 2021-12-24 17:26:00 86.183 kg Universi ty of [place] [facility] BMI 2021-12-24 17:26:00 29.76 kg/m2 Universi ty of [place] [facility] Oxygen saturation in 2021-12-24 17:26:00 99 /min University of Arterial blood by [place] Medi denzel Pulse oximetry Branch Systolic blood 2021-12-08 18:45:00 131 mm[Hg] Univer sity of pressure [place] [facility] Diastolic blood 2021-12-08 18:45:00 91 mm[Hg] Unive rsity of pressure [place] [facility] Heart rate 2021-12-08 18:45:00 86 /min Universi ty of [place] [facility] Body temperature 2021-12-08 18:45:00 36.72 Chelsea Univ ersity of [place] [facility] Respiratory rate 2021-12-08 18:45:00 18 /min Univ ersity of [place] [facility] Body weight 2021-12-08 18:45:00 86.183 kg Universi ty of [place] [facility] BMI 2021-12-08 18:45:00 29.76 kg/m2 Universi ty of [place] [facility] Oxygen saturation in 2021-12-08 18:45:00 98 /min University of Arterial blood by [facility] Pulse oximetry Branch Systolic blood 2021-10-13 13:42:00 123 mm[Hg] Univer sity of pressure [place] [facility] Diastolic blood 2021-10-13 13:42:00 78 mm[Hg] Unive rsity of pressure [place] [facility] Heart rate 2021-10-13 13:42:00 86 /min Universi ty of [place] [facility] Body temperature 2021-10-13 13:42:00 36.78 [place] Univ ersity of [place] [facility] Respiratory rate 2021-10-13 13:42:00 18 /min Univ ersity of [place] [facility] Body weight 2021-10-13 13:42:00 86.183 kg Universi ty of [place] [facility] BMI 2021-10-13 13:42:00 29.76 kg/m2 Universi ty of [place] [facility] Oxygen saturation in 2021-10-13 13:42:00 98 /min University of Arterial blood by [facility] [place] denzel Pulse oximetry Branch Systolic blood 2021-09-23 16:00:00 128 mm[Hg] Univer sity of pressure [place] [facility] Diastolic blood 2021-09-23 16:00:00 79 mm[Hg] [facility] of pressure [facility] Heart rate 2021-09-23 16:00:00 79 /min [facility] Body temperature 2021-09-23 16:00:00 36.72 Chelsea [facility] Oxygen saturation in 2021-09-23 16:00:00 100 /min [facility] Arterial blood by [facility] Pulse oximetry Branch Respiratory rate 2021-09-23 14:25:00 18 /min [facility] Body height 2021-09-23 14:25:00 170.2 cm [facility] Body weight 2021-09-23 14:25:00 86.183 kg [facility] BMI 2021-09-23 14:25:00 29.76 kg/m2 [facility] Procedures Procedure Date / Time Performed Performing Clinician Sourc e LIPASE 2022-05-10 03:37:00 Farzaneh Bo [facility] COMP. METABOLIC PANEL 2022-05-10 03:37:00 Farzaneh Bo [facility] ([id number]) [facility] CBC WITH DIFF 2022-05-10 03:37:00 Farzaneh Bo [facility] POCT TEST 2022-05-10 02:49:[address] [facility] URINALYSIS 2022-05-10 02:48:00 Farzanhe Bo [facility] NOTICE OF PRIVACY 2022-05-10 02:33:25 Doctor Unassigned, No [facility] CONSENT/REFUSAL FOR 2022-05-10 02:31:34 Doctor Unassigned, No Un iversity of [place] DIAGNOSIS AND Name Medical Branch TREATMENT CONSENT/REFUSAL FOR 2021-12-24 17:15:06 Doctor Unassigned, No Un [facility] [place] DIAGNOSIS AND Name Medical Branch TREATMENT NOTICE OF PRIVACY 2021-12-08 18:35:32 [facility] CONSENT/REFUSAL FOR 2021-12-08 18:35:08 Doctor Unassigned, No [facility] [place] DIAGNOSIS AND Name Medical Branch TREATMENT ASSIGNMENT OF BENEFITS 2021-10-13 13:51:35 [facility] Medical Branch CONSENT/REFUSAL FOR 2021-10-13 13:36:21 Doctor [facility]assigned, No [facility] Name Medical Branch TREATMENT COMP. METABOLIC PANEL 2021-09-23 15:35:00 [facility]har [facility] [place] [facility] ([id number]) Medical Branch LIPASE 2021-09-23 14:59:00 Singer [facility] CBC WITH DIFF 2021-09-23 14:59:00 Mata, [facility] CONSENT/REFUSAL FOR 2021-09-23 14:17:56 Doctor Unassigned, No [facility] Name Medical Branch TREATMENT Encounters Start End Encounter Admission Attending Care Care Encounter Source Date/Time Date/Time Type Type Clinicians Facility Department ID 2022-05-09 2022-05-10 Emergency [facility] [id number] Univers 21:49:00 00:20:00 FARZANEH busby [facility] 2022-05-09 2022-05-10 Emergency [facility] [id number] Univers 21:49:00 00:20:00 Farzaneh OWENS [id number] itkamari [facility] [id number] [facility] [id number] [address] 2021-12-24 2021-12-24 Emergency [facility] [id number] Univers 11:28:00 13:33:00 JAYY busby [facility] 2021-12-24 2021-12-[address] [facility] [facility] [id number] Univers 11:28:00 13:33:00 Jayy OWENS 350.1.13.10 i asael [facility] 4.2.7.2.686 [facility] [id number] [address] 2021-12-08 2021-12-08 Emergency [facility] [id number] Univers 12:45:00 14:51:00 SRIDHAR kamari [facility] 2021-12-08 2021-12-08 Emergency [facility] [id number] Univers 12:45:00 14:51:00 Sridhar OWENS 350.1.13.10 i [place] 4.2.7.2.686 [facility] [id number] [address] 2021-10-13 2021-10-13 Emergency [facility] [id number] Univers 07:44:00 07:58:00 LATHA itkamari [facility] 2021-10-13 2021-10-13 Emergency [facility] [id number] Univers 07:44:00 07:58:00 Latha OWENS 350.1.13.10 ity [facility] 4.2.7[address] [place] [id number] 2021-09-23 2021-09-23 Emergency X [facility] ERT [id number] Univers 08:30:00 10:37:00 [facility] 2021-09-23 2021-09-23 [facility] [id number] Univers 08:30:00 10:37:00 Sridhar OWENS 350.1.13.10 i ty [place] 4.2.7.2.[address] [place] [id number] 2020-11-25 2020-11-25 Emergency Kyra Medeiros [facility] 1.2.840.114 [id number] 15:24:00 20:37:00 Nat Owens 350.1.13.10 [place] [address] [place] [address] [id number] [facility] 2020-11-25 2020-11-25 Emergency X [facility] ERT [id number] Univers 15:14:00 15:14:00 ity [facility] 2020-10-31 2020-10-31 Emergency Jack Brower [facility] 1.2.840.114 [id number] 09:18:00 12:22:00 Gaby Owens 350.1.13.10 [place] [address] [place] [address] [id number] 082020-10-31 2020-10-31 Emergency X JACK BROWER [facility] ERT [id number] Univers 09:18:00 09:18:[address] [facility] 2020-09-11 2020-09-11 Emergency Kyra Medeiros [facility] 1.2.840.114 [id number] 14:32:00 16:08:00 Nat [place] 350.1.13.10 [place] 4.2.7.2.686 [place] [id number] 2020-09-11 2020-09-11 Emergency X Kyra MEDEIROS [facility] ERT [id number] Univers 14:32:00 14:32:[address] [facility] 2020-02-03 2020-02-03 Emergency Fuad [facility] 1.2.074.441 [id number] 17:08:08 18:20:00 Anjali [place] 350.1.13.10 [place] 4.2.7.2.686 [place] [id number] 2020-02-03 2020-02-03 Emergency X FUAD [facility] ERT [id number] Univers 17:00:00 17:00:00 ANJALI ity [facility] 2020-02-03 2020-02-03 Orders Doctor DAVID 1.2.840.114 [id number] 00:00:00 00:00:00 Only Unassigned, ANGIE 350.1.13.10 [place] [facility] 4.2.7.2.686 [id number] 2020-01-10 2020-01-11 Emergency [facility] 1.2.038.391 [id number] 23:46:02 01:01:00 Serena 350.1.13.10 [place] 4.2.7.2.686 [place] [id number] 2020-01-10 2020-01-10 Emergency X [facility] ERT [id number] Univers 23:02:00 23:02:[address] [facility] 2019-12-18 2019-12-18 Emergency X Kyra MEDEIROS [facility] ERT [id number] Univers 17:24:37 18:57:[address] [facility] 2019-12-18 2019-12-18 Emergency Kyra Medeiros [facility] 1.2.840.114 [id number] 17:24:37 18:57:00 Nat Owens 350.1.13.10 [place] 4.2.7.2.686 [place] [id number] 2019-12-18 2019-12-18 Orders Doctor DAVID 1.2.840.114 [id number] 00:00:00 00:00:00 Only Unassigned, ANGIE 350.1.13.10 [place] [facility] 4.2.7.2.686 [id number] [id number] 2019-06-29 2019-06-29 Emergency Jayes, [facility] [id number] 02:13:29 04:06:00 Jose David Owens 350.1.13.10 [place] 4.2.7.2.686 [place] [id number] [id number] Results Test Description Test Time Test Comments Results Result Comments Source COMP. METABOLIC PANEL (37991) 2022-05-10 04:28:49 Test Item Value Reference Range Interpretation Comme nts NA (test code = 7612939059) 138 mmol/L 135-145 K (test code = 5758073120) 4.2 mmol/L 3.5-5.0 CL (test code = 2842039904) 104 mmol/L 98-108 CO2 TOTAL (test code = 25 mmol/L 23-31 8516357896) AGAP (test code = 0593347914) 2-16 BUN (test code = 3197589637) 9 mg/dL 7-23 GLUCOSE (test code = 5885515393) 103 mg/dL 70-110 CREATININE (test code = 0.78 mg/dL 0.50-1.04 7282462066) TOTAL BILI (test code = 0.3 mg/dL 0.1-1.1 8554915730) CALCIUM (test code = 0038192865) 9.4 mg/dL 8.6-10.6 T PROTEIN (test code = 7.1 g/dL 6.3-8.2 5933121308) ALBUMIN (test code = 2591738567) 4.4 g/dL 3.5-5.0 ALK PHOS (test code = 0728920603) 55 U/L 34-122 ALTv (test code = 1742-6) 25 U/L 5-35 AST(SGOT) (test code = 23 U/L 13-40 4330648111) eGFR (test code = 9731057435) mL/min/1.73m2 JASMYN (test code = JASMYN) Association [...] or urine or abnormalities in imaging tests). [facility] 04:28:29 Test Item Value Reference Range Interpretation Comments LIPASE (test code = 9795739625) 58 U/L 0-220 Lab Interpretation (test code = Normal 15214-4) [facility] WITH [id number] 03:54:04 Test Item Value Reference Range Interpretation Comments WBC (test code = See_Comment [Automated 9988-2) message] The sy stem which generated this [...] as normal/abnormal . HGB (test code = 11.8 g/dL 11.6-15.0 718-7) HCT (test code = 37.4 % 35.7-45.2 4544-3) MCV (test code = 76.6 fL 80.6-95.5 L 787-2) MCH (test code = 24.2 pg 25.9-32.8 L 785-6) MCHC (test code = 31.6 g/dL 31.6-35.1 786-4) RDW-SD (test code = 46.1 fL 39.0-49.9 70030-2) RDW-CV (test code = 16.5 % 12.0-15.5 H 788-0) PLT (test code = See_Comment H [Automated 777-3) message] The sy stem which generated this result transmitted reference range : 166 - 358 10*3/ ?L. The reference r juliano was not used to interpret this result as normal/abnormal . MPV (test code = 10.0 fL 9.5-12.9 41813-1) NRBC/100 WBC (test See_Comment [Automat ed code = 9450818972) message] The system which generated this result transmitted reference range : 0.0 - 10.0 /100 WBCs. The refer ence range was not u sed to interpret th is result as normal/abnormal . NRBC x10^3 (test code <0.01 See_Comment [Auto mated = 2507023774) message] The s ystem which generated this result transmitted reference range : 10*3/?L. The reference range was not used to interpret this result as normal/abnormal . GRAN MAT (NEUT) % 57.9 % (test code = 770-8) IMM GRAN % (test code 0.10 % = 0704463557) LYMPH % (test code = 31.1 % 736-9) MONO % (test code = 7.2 % 5905-5) EOS % (test code = 3.4 % 713-8) BASO % (test code = 0.3 % 706-2) GRAN MAT x10^3(ANC) 4.08 10*3/uL 1.88-7.09 (test code = 2615793364) IMM GRAN x10^3 (test <0.03 0.00-0.06 code = 1412243024) LYMPH x10^3 (test code 2.19 10*3/uL 1.32-3.29 = 731-0) MONO x10^3 (test code 0.51 10*3/uL 0.33-0.92 = 742-7) EOS x10^3 (test code = 0.24 10*3/uL 0.03-0.39 711-2) BASO x10^3 (test code <0.03 0.01-0.07 = 704-7) Lab Interpretation Abnormal (test code = 79433-6) [facility] [id number] 02:49:00 Test Item Value Reference Range Interpretation Comments POCT PREG (test code = 1605) Negative On board controls acceptable with Positive C Line (test code = 3574) POCT PREG LOT # (test code = HCG [id number] [id number]) POCT PREG TEST DATE (test 08/31/2023 code = 3576) Lab Interpretation (test code = Normal 22992-0) [facility]. METABOLIC PANEL (82580)2021-09-23 16:10:10 Test Item Value Reference Range Interpretation Comments NA (test code = 135 mmol/L 135-145 4989982998) K (test code = 4.5 mmol/L 3.5-5.0 4296047748) CL (test code = 101 mmol/L 98-108 8615518045) CO2 TOTAL (test code 28 mmol/L 23-31 = 1315336322) AGAP (test code = 2-16 6093145669) BUN (test code = 19 mg/dL 7-23 3346615771) GLUCOSE (test code = 94 mg/dL 70-110 9151667560) CREATININE (test code 0.83 mg/dL 0.50-1.04 = 0673881397) TOTAL BILI (test code 0.5 mg/dL 0.1-1.1 = 0493167354) CALCIUM (test code = 9.9 mg/dL 8.6-10.6 0618134079) T PROTEIN (test code 7.6 g/dL 6.3-8.2 = 2127380067) ALBUMIN (test code = 4.5 g/dL 3.5-5.0 5608545449) ALK PHOS (test code = 52 U/L 34-122 6111463659) ALTv (test code = 15 U/L 5-35 1742-6) AST(SGOT) (test code 21 U/L 13-40 = 9707189234) eGFR (test code = mL/min/1.73m2 8380188406) JASMYN (test code = JASMYN) Association of Glomerular Filtration Rate (GFR) and Staging of Kidney Disease* + + +- +| GFR (mL/min/1.73 m2) ?| With Kidney Damage ?| ?Without Kidney Damage+ ------+ ----+ ------+| ?>90 ?| ?Stage one ?| ? Normal ?+ -+ + -+| ?60-89 ?| ?Stage two ?| ? Decreased GFR ? + + +- +| ?30-59 ?| ?Stage three ?| ? Stage three ? + + +- +| ?15-29 ?| ?Stage four ? | ? Stage four ?+ -+ + -+| ?<15 (or dialysis) ? ?| ?Stage five ? | ? Stage five ?+ -+ + -+ *Each stage assumes the associated GFR level [...] or urine or abnormalities in imaging tests). [facility] 15:52:35 Test Item Value Reference Range Interpretation Comments LIPASE (test code = 8586419133) 72 U/L 0-220 Lab Interpretation (test code = Normal 04129-5) [facility] WITH [id number] 15:37:27 Test Item Value Reference Range Interpretation Comments WBC (test code = See_Comment [Automated 6690-2) message] The sy stem which generated this [...] RDW-SD (test code = 43.4 fL 39.0-49.9 89118-5) RDW-CV (test code = 14.0 % 12.0-15.5 788-0) PLT (test code = See_Comment H [Automated 777-3) message] The sy stem which generated this result transmitted reference range : 166 - 358 10*3/ ?L. The reference r juliano was not used to interpret this result as normal/abnormal . MPV (test code = 10.4 fL 9.5-12.9 27804-8) NRBC/100 WBC (test See_Comment [Automat ed code = 1090235546) message] The system which generated this result transmitted reference range : 0.0 - 10.0 /100 WBCs. The refer ence range was not u sed to interpret th is result as normal/abnormal . NRBC x10^3 (test code <0.01 See_Comment [Auto mated = 7601600662) message] The s ystem which generated this result transmitted reference range : 10*3/?L. The reference range was not used to interpret this result as normal/abnormal . GRAN MAT (NEUT) % 60.5 % (test code = 770-8) IMM GRAN % (test code 0.30 % = 2613841760) LYMPH % (test code = 28.4 % 736-9) MONO % (test code = 6.4 % 5905-5) EOS % (test code = 3.6 % 713-8) BASO % (test code = 0.8 % 706-2) GRAN MAT x10^3(ANC) 3.71 10*3/uL 1.88-7.09 (test code = 6257980008) IMM GRAN x10^3 (test <0.03 0.00-0.06 code = 6408081581) LYMPH x10^3 (test code 1.74 10*3/uL 1.32-3.29 = 731-0) MONO x10^3 (test code 0.39 10*3/uL 0.33-0.92 = 742-7) EOS x10^3 (test code = 0.22 10*3/uL 0.03-0.39 711-2) BASO x10^3 (test code 0.05 10*3/uL 0.01-0.07 = 704-7) Lab Interpretation Abnormal (test code = 41067-8) [facility]"
[2022-06-07] MEDS ORDERED: NA CHLORIDE 0.9% 1,000 ML ONE (16:13)
[2022-06-07 16:45] LABS: Urine RBC >50 /HPF (None Seen)
[2022-06-07 16:46] LABS: Urine Bacteria <20 /HPF (<20)
[2022-06-07 16:59] LABS: Absolute Lymphocytes (CBC) 1.8 K/uL (0.7-4.9); Hematocrit 35.2 % (36.0-45.0); Lymphocytes % 24.1 % (15.3-44.8); MCV 75.7 fL (80-100); RBC Red Blood Cell Count 4.65 M/uL (3.86-4.86)
[2022-06-07 17:21] LABS: BUN Blood Urea Nitrogen 14 mg/dL (7-18); Bicarbonate 26 mmol/L (21-32); Glomerular Filtration Rate 86 ml/min (=/>90); Glucose Level 99 mg/dL (74-106); Potassium 3.7 mmol/L (3.5-5.1); Sodium Level 138 mmol/L (136-145)
[2022-06-07 17:33] LABS: HCG, Quantitative < 1 mIU/mL (1-3)
--- NOTE | 2022-06-07 17:43 | ER ---
Nurse's Notes [facility] Name: Genesis Hu Age: 31 yrs Sex: Female : 1990 Arrival Date: 06/07/2022 Time: 15:28 Bed 6 Private MD: Diagnosis: Anemia, unspecified;Abnormal uterine and vaginal bleeding, unspecified;Other specified abnormal uterine and vaginal bleeding Presentation: 06/07 15:47 Chief complaint: Patient states: vaginal bleeding since last night, I had two periods iw in May, I normally start on last day of month, I have PCOS and I have clots but now they are so big they aren't passing ,Edwige had a tubal but this feels like a miscarriage, i also have ulcers. Coronavirus screen: At this time, the client does not indicate any symptoms associated with coronavirus-19. Ebola Screen: Patient negative for fever greater than or equal to 101.5 degrees Fahrenheit, and additional compatible Ebola Virus Disease symptoms Patient denies exposure to infectious person. Patient denies travel to an Ebola-affected area in the 21 days before illness onset. No symptoms or risks identified at this time. Initial Sepsis Screen: Does the patient meet any 2 criteria? No. Patient's initial sepsis screen is negative. Does the patient have a suspected source of infection? No. Patient's initial sepsis screen is negative. Risk Assessment: Do you want to hurt yourself or someone else? Patient reports no desire to harm self or others. Onset of symptoms was June 06, 2022. 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 - Family history:: not pertinent. - Social history:: Smoking status: Patient/guardian denies using tobacco products. Screenin:10 Abuse screen: Denies threats or abuse. Nutritional screening: No deficits noted. bm7 Tuberculosis screening: No symptoms or risk factors identified. Fall Risk None identified. Assessment: 17:10 Reassessment: Patient and/or family updated on plan of care and expected duration. Pain bm7 level reassessed. Patient is alert, oriented x 3, equal unlabored respirations, skin warm/dry/pink. 17:29 General: Appears in no apparent distress. uncomfortable, well groomed, well developed, bm7 Behavior is calm, cooperative, appropriate for age. Pain: Complains of pain in right lower quadrant and left lower quadrant Pain does not radiate. Neuro: Level of Consciousness is awake, alert, obeys commands. Cardiovascular: No deficits noted. Respiratory: No deficits noted. GI: Abdomen is round Patient currently denies nausea, vomiting. : Urine is blood tinged, pt states she is having claudia bright red blood clots Reports vaginal bleeding that is bright red. EENT: No deficits noted. No signs and/or symptoms were reported regarding the EENT system. Derm: No deficits noted. No signs and/or symptoms reported regarding the dermatologic system. Musculoskeletal: No deficits noted. No signs and/or symptoms reported regarding the musculoskeletal system. Vital Signs: 15:47 BP 127 / 86; Pulse 90; Resp 16; Temp 98.5; Pulse Ox 98% on R/A; Weight 99.79 kg; Height iw 5 ft. 6 in. (167.64 cm); Pain 10/10; 17:29 BP 129 / 78; Pulse 80; Resp 16; Pulse Ox 100% on R/A; bm7 18:15 BP 122 / 76; Pulse 74; Resp 16; Pulse Ox 100% on R/A; bm7 15:47 Body Mass Index 35.51 (99.79 kg, 167.64 cm) ED Course: 15:28 Patient arrived in ED. am2 15:49 Triage completed. iw 15:49 Arm band placed on. iw 15:58 Eddie Danielle MD is Attending Physician. [facility] 16:03 Rhina Gan, IRENE is Primary Nurse. bm7 17:10 Patient has correct armband on for positive identification. Placed in gown. Bed in low bm7 position. Call light in reach. Client placed on continuous cardiac and pulse oximetry monitoring. NIBP monitoring applied. Warm blanket given. Assisted to bathroom. 17:10 Initial lab(s) drawn, by nm, sent to lab. Inserted saline lock: 20 gauge in right bm7 antecubital area, using aseptic technique. 17:24 US Transvaginal Study (Probe) In Process Unspecified. EDWI 17:43 Shirley Mullen MD is Referral Physician. [facility] 17:47 Assisted to bathroom. bm7 18:15 No provider procedures requiring assistance completed. IV discontinued, intact, bm7 bleeding controlled, No redness/swelling at site. Pressure dressing applied. Administered Medications: 16:38 Drug: NS 0.9% 1000 ml Route: IV; Rate: 1 bolus; Site: right antecubital; bm7 18:16 Follow up: IV Status: Completed infusion; IV Intake: 1000ml bm7 Medication: 17:10 VIS not applicable for this client. bm7 Point of Care Testing: Urine : 16:38 hCG Reading: Negative; bm7 Intake: 18:16 IV: 1000ml; Total: 1000ml. bm7 Outcome: 17:43 Discharge ordered by . [facility] 18:15 Discharged to home ambulatory. bm7 18:15 Condition: good 18:15 Discharge instructions given to patient, Instructed on discharge instructions, follow up and referral plans. medication usage, Demonstrated understanding of instructions, follow-up care, medications, Prescriptions given X 2. 18:17 Patient left the ED. bm7 Signatures: Dispatcher [employer] EDWI Eddie Danielle MD MD cha Williams, Irene, RN Jill Hernandez Brittany, RN RN bm7
--- NOTE | 2022-06-07 17:43 | EDPHYS ---
Physician Documentation [facility] Name: Genesis Hu Age: 31 yrs Sex: Female : 1990 Arrival Date: 06/07/2022 Time: 15:28 Bed 6 Private MD: ED Physician Eddie Danielle HPI: 06/07 16:30 This 31 yrs old Female presents to ER via Ambulatory with complaints of sarah Vaginal Bleeding. 16:30 The patient presents with vaginal bleeding that is light, moderate. Onset: The sarah symptoms/episode began/occurred 5 day(s) ago. Modifying factors: The symptoms are alleviated by nothing, the symptoms are aggravated by nothing. Associated signs and symptoms: The patient has no apparent associated signs or symptoms. Severity of symptoms: At their worst the symptoms were moderate, in the emergency department the symptoms have improved, mildly. The patient has experienced similar episodes in the past, multiple times. 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 - Family history:: not pertinent. - Social history:: Smoking status: Patient/guardian denies using tobacco products. ROS: 16:30 Constitutional: Negative for fever, chills, and weight loss, Eyes: Negative for injury, sarah pain, redness, and discharge, ENT: Negative for injury, pain, and discharge, Neck: Negative for injury, pain, and swelling, Cardiovascular: Negative for chest pain, palpitations, and edema, Respiratory: Negative for shortness of breath, cough, wheezing, and pleuritic chest pain, Abdomen/GI: Negative for abdominal pain, nausea, vomiting, diarrhea, and constipation, Back: Negative for injury and pain. Exam: 16:34 Constitutional: This is a well developed, well nourished patient who is awake, alert, sarah and in no acute distress. Head/Face: Normocephalic, atraumatic. ENT: Nares patent. No nasal discharge, no septal abnormalities noted. Tympanic membranes are normal and external auditory canals are clear. Oropharynx with no redness, swelling, or masses, exudates, or evidence of obstruction, uvula midline. Mucous membranes moist. Neck: Trachea midline, no thyromegaly or masses palpated, and no cervical lymphadenopathy. Supple, full range of motion without nuchal rigidity, or vertebral point tenderness. No Meningismus. Chest/axilla: Normal chest wall appearance and motion. Nontender with no deformity. No lesions are appreciated. Cardiovascular: Regular rate and rhythm with a normal S1 and S2. No gallops, murmurs, or rubs. Normal PMI, no JVD. No pulse deficits. Respiratory: Lungs have equal breath sounds bilaterally, clear to auscultation and percussion. No rales, rhonchi or wheezes noted. No increased work of breathing, no retractions or nasal flaring. Abdomen/GI: Soft, non-tender, with normal bowel sounds. No distension or tympany. No guarding or rebound. No evidence of tenderness throughout. Back: No spinal tenderness. No costovertebral tenderness. Full range of motion. Skin: Warm, dry with normal turgor. Normal color with no rashes, no lesions, and no evidence of cellulitis. MS/ Extremity: Pulses equal, no cyanosis. Neurovascular intact. Full, normal range of motion. Neuro: Awake and alert, GCS 15, oriented to person, place, time, and situation. Cranial nerves II-XII grossly intact. Motor strength 5/5 in all extremities. Sensory grossly intact. Cerebellar exam normal. Normal gait. Psych: Awake, alert, with orientation to person, place and time. Behavior, mood, and affect are within normal limits. 16:34 Eyes: Conjunctiva: pale, bilaterally. 16:34 Skin: Appearance: Color: pale. Vital Signs: 15:47 BP 127 / 86; Pulse 90; Resp 16; Temp 98.5; Pulse Ox 98% on R/A; Weight 99.79 kg; Height iw 5 ft. 6 in. (167.64 cm); Pain 10/10; 17:29 BP 129 / 78; Pulse 80; Resp 16; Pulse Ox 100% on R/A; bm7 18:15 BP 122 / 76; Pulse 74; Resp 16; Pulse Ox 100% on R/A; bm7 15:47 Body Mass Index 35.51 (99.79 kg, 167.64 cm) iw MDM: 15:58 Patient medically screened. [facility] 16:37 Differential diagnosis: dysmenorrhea, menometrorrhagia, menorrhea, nonspecific sarah abdominal pain, uterine fibroids, urinary tract infection. Data reviewed: vital signs, nurses notes, lab test result(s), radiologic studies, ultrasound. 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 Counseling: I had a detailed discussion with the patient and/or guardian regarding: the historical points, exam findings, and any diagnostic results supporting the discharge/admit diagnosis, lab results, radiology results, the need for further work-up and treatment in the hospital. 06/07 16:01 Order name: Type And Screen [facility] 06/07 16:08 Order name: Urine Microscopic Only; Complete Time: 17:29 em 06/07 16:01 Order name: IV Saline Lock; Complete Time: 16:38 [facility] 06/07 16:01 Order name: US Transvaginal Study (Probe) [facility] 06/07 16:42 Order name: Type and Screen; Complete Time: 17:42 [facility] 06/07 16:42 Order name: Basic Metabolic Panel; Complete Time: 17:42 [facility] 06/07 16:42 Order name: CBC with Automated Diff; Complete Time: 17:29 [facility] 06/07 16:42 Order name: HCG, Quantitative; Complete Time: 17:42 [facility] 06/07 16:48 Order name: Urine Culture [facility] 06/07 16:01 Order name: Labs collected and sent; Complete Time: 16:38 [facility] 06/07 16:01 Order name: NPO; Complete Time: 16:38 [facility] 06/07 16:01 Order name: Urine Dipstick-Ancillary (obtain specimen); Complete Time: 16:08 [facility] 06/07 16:01 Order name: Urine Test (obtain specimen); Complete Time: 16:38 [facility] Administered Medications: 16:38 Drug: NS 0.9% 1000 ml Route: IV; Rate: 1 bolus; Site: right antecubital; bm7 18:16 Follow up: IV Status: Completed infusion; IV Intake: 1000ml bm7 Point of Care Testing: Urine : 16:38 hCG Reading: Negative; bm7 Disposition Summary: 06/07/22 17:43 Discharge Ordered Location: Home sarah Problem: new sarah Symptoms: have improved sarah Condition: Stable sarah Diagnosis - Anemia, unspecified sarah - Abnormal uterine and vaginal bleeding, unspecified sarah - Other specified abnormal uterine and vaginal bleeding sarah Followup: sarah - With: Private Physician - When: 2 - 3 days - Reason: Recheck today's complaints, Continuance of care, Re-evaluation by your physician Followup: sarah - With: - When: 2 - 3 days - Reason: Recheck today's complaints, Continuance of care, Re-evaluation by your physician Discharge Instructions: - Discharge Summary Sheet sarah - Abnormal Uterine Bleeding sarah - Iron Deficiency Anemia, Adult sarah - Anemia sarah - Iron-Rich Diet sarah - Menorrhagia sarah - Metrorrhagia sarah - Dysfunctional Uterine Bleeding sarah - Menorrhagia, [id number] sarah - Abnormal Uterine Bleeding, [id number] sarah - Iron Deficiency Anemia, Adult, [id number] sarah - Metrorrhagia, [id number] sarah Forms: - Medication Reconciliation Form sarha - Thank You Letter sarah - Antibiotic Education sarah - Prescription Opioid Use sarah Prescriptions: - Ferrous Sulfate 325 mg (65 mg Iron) Oral Tablet - take 1 tablet by ORAL route every 8 hours; 90 tablet; Refills: 0, Product sarah Selection Permitted Signatures: Dispatcher [employer] EDEddie Avendaño MD MD cha Williams, Irene, RN RN iw Rhina Gan, RN RN bm7 Corrections: (The following items were deleted from the chart) 17:25 16:48 BASIC METABOLIC PANEL+C.LAB.BRZ ordered. EDMS EDMS 17:25 16:48 QUANTITATIVE HCG+C.LAB.BRZ ordered. EDMS EDMS
--- NOTE | 2022-06-07 18:02 | RAD REPORT ---
EXAM DESCRIPTION: US - Transvaginal Study Probe - 06/07/2022 5:22 pm CLINICAL HISTORY: Pelvic pain COMPARISON: none FINDINGS: The uterus measures 10 x 5 x 5 cm. A fibroid is not seen. The endometrial stripe measures 5 millimeters The right ovary is normal in size and echotexture. Left ovary not seen secondary to overlying bowel g as The right and left adnexa unremarkable No significant free fluid is seen. IMPRESSION: Unremarkable pelvic ultrasound
[2022-06-07 19:25] VITALS: TEMP 98.5
[2022-06-07 19:32] VITALS: O2SAT 100
[2022-06-07 19:45] VITALS: BP 122/76
== END 2022-06-07 18:17 | disposition home or self-care (01) ==
LOC: ER 15:27
DX: D64.9 Anemia, unspecified (principal); Z88.0 Allergy status to penicillin; Z88.1 Allergy status to other antibiotic agents; Z91.040 Latex allergy status; Z91.048 Other nonmedicinal substance allergy status
CPT/HCPCS: 36415; 76830; 80048; 81015; 84702; 85025; 86850; 86900; 86901; 87086; 87088; 96360; 96361; 99284; J7030

== ENCOUNTER 2022-06-25 08:29 | Emergency (ER) | payer OTHER ==
--- OUTSIDE RECORDS SUMMARY | 2022-06-25 08:35 | XMS REPORT | Continuity of Care Document ---
:1990 Author Organization [facility] t Address [address] [place] [address] Care Team Providers Name Role Phone Pcp, [...] ANJALI MERIDA Attending Clinician Unavailable Doctor Unassigned, [place] Attending Clinician Unavailable Jose David Valle MD Attending Clinician Payers Payer Name Policy Type Policy Number Effective Date Expiration Date S hanane MEDICAID PENDING PENDING 2021 00:00:00 Problems Condition Condition Condition Status Onset Resolution Last Treating Co mments Source Name Details Category Date Date Treatment Clinician Date Abdominal Abdominal Disease Active Overview: Univers pain pain 07-28 Formattin ity of 00:00: g of this [place] note Medical might be Branch different from the original. 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 1 hr- 47 Immune to Immune to Disease Active Uni vers varicella varicella 07-05 ity of 00:00: [place] 00 Medical Branch High-risk High-risk Disease Active Overview: Univers 06-30 Formattin i ty of 00:00: g of this [place] 00 note Medical might be Branch different from the original. Medical records received. [facility]. DOS- 0. CC: 30 weeks w/ twins, vomiting black liquid. No evidence of hepatitis , pancreati tis, or liver dysfuncti on. Physiolog ic anemia. No UTI or ketonuria . 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 Send to [facility] at 16 weeks Pain Pain Disease [...] ers POLLEN INGREDI 1-31 ity of 00:00: [place] [address] Medical Branch Bee Propensi Active Unknown - Unive rs Pollen ty to See comments 12-01 ity of adverse 00:00: [place] reaction 00 Medical s Branch Social History Social Habit Start Date Stop Date Quantity Comments Source Alcohol intake 2022-05-10 2022-05-10 Current University 00:00:00 00:00:00 non-drinker of [facility] alcohol [place] (finding) Exposure to 2022-04-29 2022-05-09 Not sure [facility] SARS-CoV-2 00:00:00 21:36:00 [facility] (event) Branch Tobacco use and 2013-06-30 2013-06-30 Never used Universit y of exposure 00:00:00 00:00:00 [facility] Sex Ass[birth year] At [birth year] Universit y of 00:00:00 00:00:00 [facility] Smoking Status Start Date Stop Date Source Never smoker [facility] Medications Ordered Filled Start Stop Current Ordering Indication Dosage Frequency Signature Comments Components Source Medication Medication Date Date Medication? Clinician (SIG) Name Name dicyclomine No 20mg 20 mg, Uni vers (BENTYL) 05-10 Intramuscu ity of injection 04:15: 03:38 lar, ONCE, [place] 20 mg 00 :00 1 dose, On Medical 05/09/22 Branch at 2315, Routine dicyclomine Yes [id number] 20mg Take 1 Univers 20 mg -10 tablet by ity of tablet 00:00: mouth 4 [place] 00 (four) Medical times Branch daily as needed for Abdominal pain. ferrous 2021- No 1{tbl} Take 1 Unive rs sulfate/vit 05-09 tablet by it y of C/folic ac 23:56: 00:00 mouth [place] (FERROUS 54 :00 daily. Medical SULFATE-C-F Branch OLIC ACID ORAL) dicyclomine 2021- No [id number] 20mg Take 1 Univers 20 mg 05-09 tablet by ity of tablet 00:00: 00:00 mouth 4 [place] 00 :00 (four) Medical times [place] daily as needed for Abdominal pain. clarithromy Yes [id number] 500mg Take 1 Univers dominique 500 mg 2-23 tablet by ity of tablet 00:00: mouth [place] 00 every 12 Medical (twelve) Branch hours. pantoprazol Yes [id number] 40mg Take 1 Univers e 40 mg EC 2-23 tablet by ity of tablet 00:00: mouth [place] 00 daily. Medical Branch pantoprazol Yes [id number] 40mg Take 1 Univers e 40 mg EC 2-23 tablet by ity of tablet 00:00: mouth [place] 00 daily. Medical Branch clarithromy 2021- No [id number] 500mg Take 1 Univers dominique 500 mg 2-23 -09 tablet by ity of tablet 00:00: 00:00 mouth [place] 00 :00 every 12 Medical (twelve) Branch hours. sucralfate 2021- No [id number] 1g Take 1 Univers 1 gram 2-23 - tablet by ity of tablet 00:00: 04:59 mouth [place] 00 :00 before Medical meals and Branch at bedtime for 30 days. metroNIDAZO 2021- No [id number] 500mg Take 1 Univers LE 500 mg 2-23 -10 tablet by ity of tablet 00:00: 05:59 mouth [place] 00 :00 every 8 Medical (eight) Branch hours for 14 days. sucralfate 2021- No [id number] 1g Take 1 Univers 1 gram 2-23 - tablet by ity of tablet 00:00: 00:00 mouth [place] 00 :00 before Medical meals and Branch at bedtime. maalox:diph 2021- No 15mL 15 mL, Uni vers enhydrAMINE 2 02- Oral, ity of :lidocaine 21:30: 20:30 ONCE, 1 [place] as 2 % viscous 00 :00 dose, On Medi denzel 1:1:1 12/08/21 Branch ([facility] at 1530, [facility]) Routine oral suspension 15 mL sucralfate Yes [id number] 1g Take 1 U nivers 1 gram 2-07 tablet by ity of tablet 00:00: mouth [place] 00 before Medical meals and Branch at bedtime. dicyclomine Yes [id number] 10mg Take 1 Univers (BENTYL) 10 2-07 capsule by it y of mg capsule 00:00: mouth [place] 00 every 8 Medical (eight) Branch hours as needed for Abdominal pain. ondansetron Yes [id number] 4mg Take 1 Univers 4 mg 2-07 tablet by ity of disintegrat 00:00: mouth [place] ing tablet 00 every 8 Medica l (eight) Branch hours as needed for Nausea and Vomiting (N/V). dicyclomine Yes [id number] 10mg Take 1 Univers (BENTYL) 10 2-07 capsule by it y of mg capsule 00:00: mouth [place] 00 every 8 Medical (eight) Branch hours as needed for Abdominal pain. ondansetron Yes [id number] 4mg Take 1 Univers 4 mg 2-07 tablet by ity of disintegrat 00:00: mouth [place] ing tablet 00 every 8 Medica l (eight) Branch hours as needed for Nausea and Vomiting (N/V). ondansetron Yes [id number] 4mg Take 1 Univers 4 mg 2-07 tablet by ity of disintegrat 00:00: mouth [place] ing tablet 00 every 8 Medica l (eight) Branch hours as needed for Nausea and Vomiting (N/V). dicyclomine 2021- No [id number] 10mg Take 1 Univers (BENTYL) 10 2-05 07-09 capsule by i ty of mg capsule 00:00: 00:00 mouth [place] 00 :00 every 8 Medical (eight) Branch hours as needed for Abdominal pain. omeprazole 2021- No [id number] 20mg Take 1 Univers 20 mg 2-10 capsule by ity of capsule 00:00: 05:59 mouth [place] 00 :00 daily for Medical 30 days. Branch omeprazole 2021- No [id number] 20mg Take 1 Univers 20 mg 2- 03-10 capsule by ity of capsule 00:00: 05:59 mouth [place] 00 :00 daily for Medical 30 days. Branch sucralfate 2021- No [id number] 1g Take 1 Univers 1 gram 2-05 02- tablet by ity of tablet 00:00: 00:00 mouth [place] 00 :00 before Medical meals and Branch at bedtime. bismuth-met 2021- No [id number] 3{capsu Take 3 Univers ronidazole- 2-07 - le} capsules ity of tetracyclin 00:00: 05:59 by mouth [place] e 00 :00 before Medical 140-125-125 meals and Bra nch mg per at bedtime capsule for 14 days. pantoprazol 2020-11 Yes [id number] 40mg Take 1 Univers e 2-13 tablet by ity of (PROTONIX) 00:00: mouth [place] 40 mg EC 00 daily. Medical tablet Branch pantoprazol 2020-11 Yes [id number] 40mg Take 1 Univers e 2-13 tablet by ity of (PROTONIX) 00:00: mouth [place] 40 mg EC 00 daily. Medical tablet Branch pantoprazol 2020-11- No [id number] 40mg Take 1 Univers e 2-13 - tablet by ity of (PROTONIX) 00:00: 00:00 mouth [place] 40 mg EC 00 :00 daily. Medical tablet Branch sucralfate 2020-11- No [id number] 1g Take 1 Univers 1 gram 2-13 -13 tablet by ity of tablet 00:00: 05:59 mouth [place] 00 :00 before Medical meals and Branch at bedtime for 30 days. dicyclomine 2020-11 Yes 10mg 10 mg, Univ ers (BENTYL) 11-23 Oral, QID, ity o f capsule 10 18:00: First dose [place] mg 00 on [facility] 09/23/21 Branch at 1200, Until Discontinu ed, Routine sucralfate 2020-11 Yes 1g 1 g, Oral, U nivers (CARAFATE) 11-23 AC+HS, ity of tablet 1 g 17:30: First dose [place] 00 on [facility] 09/23/21 Branch at 1130, Until Discontinu ed, Routine pantoprazol 2020-11- No 40mg 40 mg, Uni vers e 11-23 Slow IV ity of (PROTONIX) 15:45: 15:00 Push, [place] injection 00 :00 ONCE, 1 Medical 40 mg dose, On Branch [facility] 09/23/21 at 0945 dicyclomine 2020-11 Yes [id number] 10mg Take 1 Univers (BENTYL) 10 11-23 capsule by it y of mg capsule 00:00: mouth [place] 00 every 8 Medical (eight) Branch hours as needed for Abdominal pain. ondansetron 2020-11 Yes [id number] 4mg Take 1 Univers 4 mg 1-23 tablet by ity of disintegrat 00:00: mouth [place] ing tablet 00 every 8 Medica l (eight) Branch hours as needed for Nausea and Vomiting (N/V). sucralfate 2020-11 Yes [id number] 1g Take 1 U nivers 1 gram 1-23 tablet by ity of tablet 00:00: mouth [place] 00 before Medical meals and Branch at bedtime. dicyclomine 2020-11 Yes [id number] 10mg Take 1 Univers (BENTYL) 10 -23 capsule by it y of mg capsule 00:00: mouth [place] 00 every 8 Medical (eight) Branch hours as needed for Abdominal pain. ondansetron 2020-11 Yes [id number] 4mg Take 1 Univers 4 mg 1-23 tablet by ity of disintegrat 00:00: mouth [place] ing tablet 00 every 8 Medica l (eight) Branch hours as needed for Nausea and Vomiting (N/V). pantoprazol 2020-11 Yes [id number] 40mg Take 1 Univers e 1-23 tablet by ity of (PROTONIX) 00:00: mouth [place] 40 mg EC 00 daily. Medical tablet Branch dicyclomine 2020-11- No [id number] 10mg Take 1 Univers (BENTYL) 10 1-23 02-07 capsule by i ty of mg capsule 00:00: 00:00 mouth [place] 00 :00 every 8 Medical (eight) Branch hours as needed for Abdominal pain. ondansetron 2020-11- No [id number] 4mg Take 1 Univers 4 mg 1-23 02-07 tablet by ity of disintegrat 00:00: 00:00 [place] ing tablet 00 :00 every 8 Medica l (eight) Branch hours as needed for Nausea and Vomiting (N/V). sucralfate 2020-11- No [id number] 1g Take 1 Univers 1 gram 1-23 12-13 tablet by ity of tablet 00:00: 00:00 mouth [place] 00 :00 before Medical meals and Branch at bedtime. pantoprazol 2020-11- No [id number] 40mg Take 1 Univers e 1-23 12-13 tablet by ity of (PROTONIX) 00:00: 00:00 mouth [place] 40 mg EC 00 :00 daily. Medical tablet Branch ciprofloxac Yes [id number] 500mg Take 1 Univers in HCl 500 1-25 tablet by ity of mg tablet 00:00: mouth 2 [place] 00 (two) Medical times Branch daily. ciprofloxac 2020- No [id number] 500mg Take 1 Univers in HCl 500 1-25 12-13 tablet by ity of mg tablet 00:00: 00:00 mouth 2 [place] 00 :00 (two) Medical times Branch daily. ondansetron 2020- No [id number] 4mg Take 1 Univers (ZOFRAN 1-25 -23 tablet by ity of ODT) 4 mg 00:00: 00:00 mouth [place] disintegrat 00 :00 every 8 Medic al ing tablet (eight) Branch hours as needed for Nausea and Vomiting (N/V). cyclobenzap 2019-11 Yes [id number] 10mg Take 1 Univers rine 10 mg 1-11 tablet by ity of tablet 00:00: mouth 3 00 (three) Medical times Branch daily. cyclobenzap 2019-11 Yes [id number] 10mg Take 1 Univers rine 10 mg 1-11 tablet by ity of tablet 00:00: mouth 3 (three) Medical times Branch daily. cyclobenzap 2019-11 Yes [id number] 10mg Take 1 Univers rine 10 mg 1-11 tablet by ity of tablet 00:00: mouth 3 00 (three) Medical times Branch daily. cyclobenzap 2019-11 Yes [id number] 10mg Take 1 Univers rine 10 mg 1-11 tablet by ity of tablet 00:00: mouth 3 00 (three) Medical times Branch daily. ibuprofen 2019-11 Yes [id number] 600mg Take 1 Univers 600 mg 1-11 tablet by ity of tablet 00:00: mouth [place] 00 every 6 Medical (six) Branch hours as needed for Pain (scale 4-6). cyclobenzap 2019-11 Yes [id number] 10mg Take 1 Univers rine 10 mg 1-11 tablet by ity of tablet 00:00: mouth 3 00 (three) Medical times Branch daily. ibuprofen 2019-11- No [id number] 600mg Take 1 Univers 600 mg 1-11 [...] Branch OLIC ACID ORAL) bromphenira 2020-0 Yes [id number] 5mL Take 5 mL Univers mine-pseudo 4-04 by mouth 4 it y of ephedrine-D 00:00: (four) [place] M (BROMFED 00 times Medical DM) 2-30-10 daily as Bran ch mg/5 mL needed for syrup Congestion /Allergies or Cough. bromphenira 2020-0 Yes [id number] 5mL Take 5 mL Univers mine-pseudo 4-04 by mouth 4 it y of ephedrine-D 00:00: (four[place] (BROMFED 00 times Medical DM) 2-30-10 daily as Bran ch mg/5 mL needed for syrup Congestion /Allergies or Cough. bromphenira 2020-0 Yes [id number] 5mL Take 5 mL Univers mine-pseudo 4-04 by mouth 4 it y of ephedrine-D 00:00: (four) [place] M (BROMFED 00 times Medical DM) 2-30-10 daily as Bran ch mg/5 mL needed for syrup Congestion /Allergies or Cough. methylPREDN 2020-0 Yes [id number] Take by Univers ISolone 4 4-04 mouth ity of mg tablets 00:00: SEE-INSTRU [place] 00 CTIONS. Medical follow Branch package directions levoFLOXaci 2020-0 Yes [id number] 500mg Take 1 Univers n 4-04 tablet by ity of (LEVAQUIN) 00:00: mouth [place] 500 mg 00 every 24 Medical tablet (twenty-fo Branch ur) hours. bromphenira 2020-0 Yes [id number] 5mL Take 5 mL Univers mine-pseudo 4-04 by mouth 4 it y of ephedrine-D 00:00: (four) [place] M (BROMFED 00 times Medical DM) 2-30-10 daily as Bran ch mg/5 mL needed for syrup Congestion /Allergies or Cough. bromphenira 2020-0 2021- No [id number] 5mL Take 5 mL Univers mine-pseudo 4-04 07-09 by mouth 4 i ty of ephedrine-D 00:00: 00:00 (four) [place] as M (BROMFED 00 :00 times Medical DM) 2-30-10 daily as Bran ch mg/5 mL needed for syrup Congestion /Allergies or Cough. methylPREDN 2019-0 2020- No [id number] Take by Univers ISolone 4 4-04 12-13 mouth ity of mg tablets 00:00: 00:00 SEE-INSTRU [place] 00 :00 CTIONS. Medical follow Branch package directions levoFLOXaci 2020-0 2020- No [id number] 500mg Take 1 Univers n 4-04 12-13 tablet by ity of (LEVAQUIN) 00:00: 00:00 mouth [place] 500 mg 00 :00 every 24 Medical tablet (twenty-fo Branch ur) hours. Immunizations Ordered Filled Immunization Date Status Comments [facility] e Immunization Name Name Td 2016-04-30 Completed University of 00:00:00 [facility] Td 2016-04-30 Completed University of 00:00:00 [facility] Td 2016-04-30 Completed University of 00:00:00 [facility] Td 2016-04-30 Completed University of 00:00:00 [facility] Td 2016-04-30 Completed University of 00:00:00 [facility] Rubella 2010-04-22 Completed University of 00:00:00 [facility] Rubella 2010-04-22 Completed University of 00:00:00 [facility] Rubella 2010-04-22 Completed University of 00:00:00 [facility] Branch Rubella 2010-04-22 Completed University of 00:00:00 [place] [facility] Rubella 2010-04-22 Completed University of 00:00:00 [place] [facility] Td 2006-06-30 Completed University of 00:00:00 [place] [facility] Td 2006-06-30 Completed University of 00:00:00 [place] [facility] Td 2006-06-30 Completed University of 00:00:00 [place] [facility] Td 2006-06-30 Completed University of 00:00:00 [place] [facility] Td 2006-06-30 Completed University of 00:00:00 [facility] Branch Vital Signs Vital Name Observation Time Observation Value Comments Source Systolic blood 2022-05-10 05:14:00 125 mm[Hg] Univer sity of pressure [facility] Diastolic blood 2022-05-10 05:14:00 81 mm[Hg] Unive rsity of [facility] Heart rate 2022-05-10 05:14:00 62 /min [facility] Respiratory rate 2022-05-10 05:14:00 17 /min [facility] Oxygen saturation in 2022-05-10 05:14:00 99 /min [facility] Arterial blood by [facility] Pulse oximetry [place] Body temperature 2022-05-10 02:44:00 36.44 [place] [facility] Body height 2022-05-10 02:44:00 167.6 cm [facility] Body weight 2022-05-10 02:44:00 103.828 kg [facility] BMI 2022-05-10 02:44:00 36.95 kg/m2 [facility] Systolic blood 2021-12-24 17:26:00 147 mm[Hg] Univer sity of pressure [facility] Diastolic blood 2021-12-24 17:26:00 80 mm[Hg] Unive rsity of pressure [facility] Heart rate 2021-12-24 17:26:00 71 /min [facility] Body temperature 2021-12-24 17:26:00 36.17 Chelsea [facility] Res[facility] rate 2021-12-24 17:26:00 18 /min [facility] Body weight 2021-12-24 17:26:00 86.183 kg Universi ty of [place] [facility] BMI 2021-12-24 17:26:00 29.76 kg/m2 Universi ty of [place] [facility] Oxygen saturation in 2021-12-24 17:26:00 99 /min University of Arterial blood by [place] Medi denzel Pulse oximetry Branch Systolic blood 2021-12-08 18:45:00 131 mm[Hg] Univer sity of pressure [place] [facility] Diastolic blood 2021-12-08 18:45:00 91 mm[Hg] Unive rsity of pressure [place] [facility] Heart rate 2021-12-08 18:45:00 86 /min Universi ty of [place] [facility] Body temperature 2021-12-08 18:45:00 36.72 [place] Univ ersity of [place] [facility] Respiratory rate 2021-12-08 18:45:00 18 /min Univ ersity of [place] [facility] Body weight 2021-12-08 18:45:00 86.183 kg Universi ty of [place] [facility] BMI 2021-12-08 18:45:00 29.76 kg/m2 Universi ty of [place] [facility] Oxygen saturation in 2021-12-08 18:45:00 98 /min University of Arterial blood by [facility] Pulse oximetry Branch Systolic blood 2021-10-13 13:42:00 123 mm[Hg] Univer sity of pressure [place] [facility] Diastolic blood 2021-10-13 13:42:00 78 mm[Hg] Unive rsity of pressure [place] [facility] Heart rate 2021-10-13 13:42:00 86 /min Universi ty of [place] [facility] Body temperature 2021-10-13 13:42:00 36.78 [place] Univ ersity of [place] [facility] Respiratory rate 2021-10-13 13:42:00 18 /min Univ ersity of [place] [facility] Body weight 2021-10-13 13:42:00 86.183 kg Universi ty of [place] [facility] BMI 2021-10-13 13:42:00 29.76 kg/m2 Universi ty of [place] [facility] Oxygen saturation in 2021-10-13 13:42:00 98 /min University of Arterial blood by [facility] denzel Pulse oximetry Branch Systolic blood 2021-09-23 16:00:00 128 mm[Hg] Univer sity of pressure [place] [facility] Diastolic blood 2021-09-23 16:00:00 79 mm[Hg] [facility] of pressure [facility] Heart rate 2021-09-23 16:00:00 79 /min [facility] Body temperature 2021-09-23 16:00:00 36.72 [place] [facility] Oxygen saturation in 2021-09-23 16:00:00 100 /min [facility] Arterial blood by [facility] Pulse oximetry Branch Respiratory rate 2021-09-23 14:25:00 18 /min [facility] Body height 2021-09-23 14:25:00 170.2 cm [facility] Body weight 2021-09-23 14:25:00 86.183 kg [facility] BMI 2021-09-23 14:25:00 29.76 kg/m2 [facility] Procedures Procedure Date / Time Performed Performing Clinician Sourc e LIPASE 2022-05-10 03:37:00 Farzaneh Bo [facility] [place] COMP. METABOLIC PANEL 2022-05-10 03:37:00 Farzaneh Bo [facility] ([id number]) [facility] CBC WITH DIFF 2022-05-10 03:37:00 Farzaneh Bo [facility] [place] POCT TEST 2022-05-10 02:49:00 Farzaneh [facility] URINALYSIS 2022-05-10 02:48:00 Farzaneh oB [facility] [place] NOTICE OF PRIVACY 2022-05-10 02:33:25 Doctor Unassigned, No [facility] CONSENT/REFUSAL FOR 2022-05-10 02:31:34 Doctor Unassigned, No Un iversity of [place] DIAGNOSIS AND Name Medical Branch TREATMENT CONSENT/REFUSAL FOR 2021-12-24 17:15:06 Doctor Unassigned, No Un iversity of [place] DIAGNOSIS AND Name Medical Branch TREATMENT NOTICE OF PRIVACY 2021-12-08 18:35:32 [facility] Branch CONSENT/REFUSAL FOR 2021-12-08 18:35:08 Doctor Unassigned, No Un iversity of [place] DIAGNOSIS AND Name Medical Branch TREATMENT ASSIGNMENT OF BENEFITS 2021-10-13 13:51:35 Doctor Unassigned, No [facility] Name Medical Branch CONSENT/REFUSAL FOR 2021-10-13 13:36:21 Doctor Unassigned, No [facility] Name Medical Branch TREATMENT COMP. METABOLIC PANEL 2021-09-23 15:35:00 Sridhar Mata [facility] ([id number]) Medical Branch LIPASE 2021-09-23 14:59:00 Singer [facility] CBC WITH DIFF 2021-09-23 14:59:00 Mata, [facility] CONSENT/REFUSAL FOR 2021-09-23 14:17:56 Doctor Unassigned, No [facility] AND Name Medical Branch TREATMENT Encounters Start End Encounter Admission Attending Care Care Encounter Source Date/Time Date/Time Type Type Clinicians Facility Department ID 2022-05-09 2022-05-10 [facility] [id number] Univers 21:49:00 00:20:00 FARZANEH busby [facility] 2022-05-09 2022-05-10 Emergency [facility] [place] [id number] Univers 21:49:00 00:20:00 Farzaneh OWENS [id number] itkamari [facility] [id number] [facility] [id number] [address] 2021-12-24 2021-12-24 Emergency [facility] E[facility] [id number] Univers 11:28:00 13:33:00 JAYY busby [facility] 2021-12-24 2021-12-24 Emergency [facility] [id number] Univers 11:28:00 13:33:00 Jayy OWENS [id number] i asael [facility] [id number] [facility] [id number] [address] 2021-12-08 2021-12-08 Emergency [facility] [id number] Univers 12:45:00 14:51:00 SRIDHAR kamari [facility] 2021-12-08 2021-12-08 Emergency [facility] [id number] Univers 12:45:00 14:51:00 Sridhar OW[place] [id number] i ty of [place] [id number] [facility] [id number] [address] 2021-10-13 2021-10-13 Emergency [facility] ERT [id number] Univers 07:44:00 07:58:00 LATHA itkamari [facility] 2021-10-13 2021-10-13 Emergency [facility] [id number] Univers 07:44:00 07:58:00 Latha OWENS [id number] ity [facility] [id number] [place] [id number] 2021-09-23 2021-09-23 Emergency X [facility] ERT [id number] Univers 08:30:00 10:37:00 [facility] 2021-09-23 2021-09-23 [facility] [id number] Univers 08:30:00 10:37:00 Sridhar OWENS [id number] i ty of [place] 4.2[address]7.[address] [place] [id number] 2020-11-25 2020-11-25 Emergency Kyra Medeiros [facility] [id number] 15:24:00 20:37:00 Nat Owens [id number] [place] [id number] [place] [address] [id number] [facility] 2020-11-25 2020-11-25 Emergency X [facility] ERT [id number] Univers 15:14:00 15:14:00 ity [facility] 2020-10-31 2020-10-31 Emergency Jack Brower [facility] [id number] 09:18:00 12:22:00 Gaby Owens [id number] [place] [id number] [place] [address] [id number] 082020-10-31 2020-10-31 Emergency X JACK BROWER [facility] ERT [id number] Univers 09:18:00 09:18:00 ity of [facility] 2020-09-11 2020-09-11 Emergency Kyra Medeiros [facility] [id number] 14:32:00 16:08:00 Nat [place] [id number] [place] 4.2.7.2.686 [place] [id number] 2020-09-11 2020-09-11 Emergency X Kyra MEDEIROS [facility] ERT [id number] Univers 14:32:00 14:32:00 ity of [facility] 2020-02-03 2020-02-03 Emergency Fuad [facility] [id number] 17:08:08 18:20:00 Anjali [place] 350.1.13.10 [place] 4.2.7.2.686 [place] [id number] [id number] 2020-02-03 2020-02-03 Emergency X FUAD [facility] ERT [id number] Univers 17:00:00 17:00:00 ANJALI ity [facility] 2020-02-03 2020-02-03 Orders Doctor DAVID [id number] 00:00:00 00:00:00 Only Unassigned, ANGIE 350.1.13.[address] [facility] 4.2.7.2.686 [id number] 2020-01-10 2020-01-11 Emergency [facility] [id number] 23:46:02 01:01:00 Serena 350.1.13.10 [place] 4.2.7.2.686 [place] [id number] 2020-01-10 2020-01-10 Emergency X [facility] ERT [id number] Univers 23:02:00 23:02:00 ity of [facility] 2019-12-18 2019-12-18 Emergency X Kyra MEDEIROS [facility] ERT [id number] Univers 17:24:37 18:57:00 ity of [facility] 2019-12-18 2019-12-18 Emergency Kyra Medeiros [facility] [id number] 17:24:37 18:57:00 Nat Owens 350.1.13.10 [place] 4.2.7.2.686 [place] [id number] 2019-12-18 2019-12-18 Orders Doctor DAVID [id number] 00:00:00 00:00:00 Only Unassigned, ANGIE 350.1.13.10 [place] [facility] 4.2.7.2.686 [id number] 2019-06-29 2019-06-29 Emergency Jayes, [facility] [id number] 02:13:29 04:06:00 Jose David Owens 350.1.13.10 [place] 4.2.7.2.686 [place] [id number] Results Test Description Test Time Test Comments Results Result Comments Source COMP. METABOLIC PANEL (52056) 2022-05-10 04:28:49 Test Item Value Reference Range Interpretation Comme nts NA (test code = 6933017623) 138 mmol/L 135-145 K (test code = 6892106799) 4.2 mmol/L 3.5-5.0 CL (test code = 7035341946) 104 mmol/L 98-108 CO2 TOTAL (test code = 25 mmol/L 23-31 7486044999) AGAP (test code = 1489826234) 2-16 BUN (test code = 4978310385) 9 mg/dL 7-23 GLUCOSE (test code = 8610351200) 103 mg/dL 70-110 CREATININE (test code = 0.78 mg/dL 0.50-1.04 3156294917) TOTAL BILI (test code = 0.3 mg/dL 0.1-1.0 0021698668) CALCIUM (test code = 7843739034) 9.4 mg/dL 8.6-10.6 T PROTEIN (test code = 7.1 g/dL 6.3-8.2 3215002073) ALBUMIN (test code = 4330279838) 4.4 g/dL 3.5-5.0 ALK PHOS (test code = 6679670509) 55 U/L 34-122 ALTv (test code = 1742-6) 25 U/L 5-35 AST(SGOT) (test code = 23 U/L 13-40 4561147952) eGFR (test code = 1022451101) mL/min/1.73m2 JASMYN (test code = JASMYN) Association [...] or urine or abnormalities in imaging tests). [facility] 04:28:29 Test Item Value Reference Range Interpretation Comments LIPASE (test code = 4467563627) 58 U/L 0-220 Lab Interpretation (test code = Normal 62759-9) [facility] WITH [id number] 03:54:04 Test Item Value Reference Range Interpretation Comments WBC (test code = See_Comment [Automated 1430-2) message] The sy stem which generated this [...] RDW-SD (test code = 46.1 fL 39.0-49.9 98384-6) RDW-CV (test code = 16.5 % 12.0-15.5 H 788-0) PLT (test code = See_Comment H [Automated 777-3) message] The sy stem which generated this result transmitted reference range : 166 - 358 10*3/ ?L. The reference r juliano was not used to interpret this result as normal/abnormal . MPV (test code = 10.0 fL 9.5-12.9 74157-7) NRBC/100 WBC (test See_Comment [Automat ed code = 6935434964) message] The system which generated this result transmitted reference range : 0.0 - 10.0 /100 WBCs. The refer ence range was not u sed to interpret th is result as normal/abnormal . NRBC x10^3 (test code <0.01 See_Comment [Auto mated = 6795921898) message] The s ystem which generated this result transmitted reference range : 10*3/?L. The reference range was not used to interpret this result as normal/abnormal . GRAN MAT (NEUT) % 57.9 % (test code = 770-8) IMM GRAN % (test code 0.10 % = 9689879102) LYMPH % (test code = 31.1 % 736-9) MONO % (test code = 7.2 % 5905-5) EOS % (test code = 3.4 % 713-8) BASO % (test code = 0.3 % 706-2) GRAN MAT x10^3(ANC) 4.08 10*3/uL 1.88-7.09 (test code = 4202353338) IMM GRAN x10^3 (test <0.03 0.00-0.06 code = 5280109120) LYMPH x10^3 (test code 2.19 10*3/uL 1.32-3.29 = 731-0) MONO x10^3 (test code 0.51 10*3/uL 0.33-0.92 = 742-7) EOS x10^3 (test code = 0.24 10*3/uL 0.03-0.39 711-2) BASO x10^3 (test code <0.03 0.01-0.07 = 704-7) Lab Interpretation Abnormal (test code = 90445-7) [facility] [id number] 02:49:00 Test Item Value Reference Range Interpretation Comments POCT PREG (test code = 1605) Negative On board controls acceptable with Positive C Line (test code = 3574) POCT PREG LOT # (test code = HCG 0662445 1308) POCT PREG TEST DATE (test 08/31/2023 code = 3576) Lab Interpretation (test code = Normal 00796-9) [facility]. METABOLIC PANEL (26088)2021-09-23 16:10:10 Test Item Value Reference Range Interpretation Comments NA (test code = 135 mmol/L 135-145 1986275381) K (test code = 4.5 mmol/L 3.5-5.0 8719854055) CL (test code = 101 mmol/L 98-108 7376039946) CO2 TOTAL (test code 28 mmol/L 23-31 = 2838696068) AGAP (test code = 2-16 5333547261) BUN (test code = 19 mg/dL 7-23 1487903211) GLUCOSE (test code = 94 mg/dL 70-110 5494009504) CREATININE (test code 0.83 mg/dL 0.50-1.04 = 8052496606) TOTAL BILI (test code 0.5 mg/dL 0.1-1.1 = 2574227624) CALCIUM (test code = 9.9 mg/dL 8.6-10.6 3226852745) T PROTEIN (test code 7.6 g/dL 6.3-8.2 = 4393904617) ALBUMIN (test code = 4.5 g/dL 3.5-5.0 8564077300) ALK PHOS (test code = 52 U/L 34-122 5093779306) ALTv (test code = 15 U/L 5-35 1742-6) AST(SGOT) (test code 21 U/L 13-40 = 4730841923) eGFR (test code = mL/min/1.73m2 1989316830) JASMYN (test code = JASMYN) Association of [...] or urine or abnormalities in imaging tests). [facility] 15:52:35 Test Item Value Reference Range Interpretation Comments LIPASE (test code = 3894548533) 72 U/L 0-220 Lab Interpretation (test code = Normal 62021-2) [facility] WITH [id number] 15:37:27 Test Item Value Reference Range Interpretation [...] RDW-SD (test code = 43.4 fL 39.0-49.9 76096-2) RDW-CV (test code = 14.0 % 12.0-15.5 788-0) PLT (test code = See_Comment H [Automated 777-3) message] The sy stem which generated this result transmitted reference range : 166 - 358 10*3/ ?L. The reference r juliano was not used to interpret this result as normal/abnormal . MPV (test code = 10.4 fL 9.5-12.9 87154-4) NRBC/100 WBC (test See_Comment [Automat ed code = 0408610339) message] The system which generated this result transmitted reference range : 0.0 - 10.0 /100 WBCs. The refer ence range was not u sed to interpret th is result as normal/abnormal . NRBC x10^3 (test code <0.01 See_Comment [Auto mated = 9105690691) message] The s ystem which generated this result transmitted reference range : 10*3/?L. The reference range was not used to interpret this result as normal/abnormal . GRAN MAT (NEUT) % 60.5 % (test code = 770-8) IMM GRAN % (test code 0.30 % = 6419828404) LYMPH % (test code = 28.4 % 736-9) MONO % (test code = 6.4 % 5905-5) EOS % (test code = 3.6 % 713-8) BASO % (test code = 0.8 % 706-2) GRAN MAT x10^3(ANC) 3.71 10*3/uL 1.88-7.09 (test code = 5976311689) IMM GRAN x10^3 (test <0.03 0.00-0.06 code = 2775110131) LYMPH x10^3 (test code 1.74 10*3/uL 1.32-3.29 = 731-0) MONO x10^3 (test code 0.39 10*3/uL 0.33-0.92 = 742-7) EOS x10^3 (test code = 0.22 10*3/uL 0.03-0.39 711-2) BASO x10^3 (test code 0.05 10*3/uL 0.01-0.07 = 704-7) Lab Interpretation Abnormal (test code = 73905-9) [facility]"
[2022-06-25 09:31] LABS: Urine Blood Negative (Negative); Urine Glucose Negative (Negative); Urine Protein Negative (Negative)
[2022-06-25 09:33] LABS: Absolute Lymphocytes (CBC) 1.4 K/uL (0.7-4.9); Hematocrit 35.9 % (36.0-45.0); Lymphocytes % 23.5 % (15.3-44.8); MCV 76.2 fL (80-100); MPV 8.1 fL (7.6-11.3); RBC Red Blood Cell Count 4.71 M/uL (3.86-4.86)
[2022-06-25 09:49] LABS: Albumin 3.9 g/dL (3.4-5.0); Bilirubin Total 0.3 mg/dL (0.2-1.0); Protein, Total 7.6 g/dL (6.4-8.2)
[2022-06-25 10:01] LABS: Urine Bacteria 20-50 /HPF (<20); Urine RBC <5 /HPF (None Seen)
--- NOTE | 2022-06-25 10:03 | RAD REPORT ---
EXAM DESCRIPTION: US - Abdomen Exam Limited - 06/25/2022 9:41 am CLINICAL HISTORY: RUQ pain COMPARISON: Abdomen Pelvis W Contrast dated 05/07/2022 FINDINGS: No gallstones, sludge or other abnormalities within the gallbladder lumen. There is no wal l thickening or pericholecystic fluid. No common duct stone or biliary tree dilatation identified. IMPRESSION: Normal gallbladder and biliary tree ultrasound.
[2022-06-25] MEDS ORDERED: ONDANSETRON 4 MG/2 ML VIAL ONE (10:22)
[2022-06-25] MEDS ORDERED: MORPHINE 4 MG/ML SYR ONE (10:22)
[2022-06-25] MEDS ORDERED: NA CHLORIDE 0.9% 1,000 ML ONE (10:23)
[2022-06-25] MEDS ORDERED: FAMOTIDINE 20 MG/2 ML VIAL IV ONE (10:23)
--- NOTE | 2022-06-25 10:47 | RAD REPORT ---
EXAM DESCRIPTION: CT - Abdomen Pelvis W Contrast - 06/25/2022 10:32 am CLINICAL HISTORY: Epigastric pain COMPARISON: Abdomen Pelvis W Contrast dated 05/07/2022; Abdomen Exam Limited dated 06/25/2022 TECHNIQUE: Biphasic, helical CT imaging of the abdomen and pelvis was performed following 100 ml non -ionic IV contrast. No oral contrast administered. All CT scans are performed using dose optimization technique as appropriate and may include automated exposure control or mA/KV adjustment according to patient size. FINDINGS: No suspicious findings in the lung bases. The liver, spleen, and pancreas show no suspicious findings. No gallbladder or biliary tree abnormali ty identifiable on this study. Symmetric renal function is seen with no hydronephrosis or suspicious renal mass. Small benign cortic al cysts are present in each kidney. No pyelonephritis or acute parenchymal process. No bladder abnor malities. No adrenal abnormalities. Uterus and ovaries show no suspicious findings. There is an invol uting 17 millimeter left ovarian cyst. No dilated bowel loops or bowel wall thickening. Appendix is normal. No free air or pneumatosis. No i nflammatory stranding. Physiologic quantity of free fluid present in the cul de sac. No hernia, mass or bulky lymphadenopathy. No suspicious bony findings. IMPRESSION: Contrast enhanced CT abdomen and pelvis showing no acute or emergent finding.
--- NOTE | 2022-06-25 11:03 | ER ---
Nurse's Notes [facility] Name: Genesis Hu Age: 31 yrs Sex: Female : 1990 Arrival Date: 06/25/2022 Time: 08:50 Bed DIS1 Private MD: Diagnosis: Abdominal pain, unspecified;UTI/ Urinary tract infection, site not specified Presentation: 06/25 08:57 Chief complaint: Patient states: has gallbladder issues and is having a lot of pain X 3 iw days RUQ. Coronavirus screen: At this time, the client does not indicate any symptoms associated with coronavirus-19. Ebola Screen: Patient negative for fever greater than or equal to 101.5 degrees Fahrenheit, and additional compatible Ebola Virus Disease symptoms Patient denies exposure to infectious person. Patient denies travel to an Ebola-affected area in the 21 days before illness onset. No symptoms or risks identified at this time. Initial Sepsis Screen: Does the patient meet any 2 criteria? No. Patient's initial sepsis screen is negative. Does the patient have a suspected source of infection? No. Patient's initial sepsis screen is negative. Risk Assessment: Do you want to hurt yourself or someone else? Patient reports no desire to harm self or others. Onset of symptoms was June 22, 2022. 08:57 Method Of Arrival: Ambulatory iw 08:57 Acuity: KRISTIN 3 iw Triage Assessment: 10:15 General: Appears in no apparent distress. Behavior is calm, cooperative. iw Historical: - Allergies: 08:59 Amoxicillin; iw 08:59 Bleach (Sodium Hypochlorite); iw 08:59 Latex, Natural Rubber; iw 08:59 PENICILLINS; iw - PMHx: 08:59 hiatal hernia; PCOS; peptic ulcer; iw - PSHx: 08:59 section; tubal ligation; iw - Immunization history:: Adult Immunizations unknown. - Social history:: Smoking status: Patient denies any tobacco usage or history of. Screenin:27 Abuse screen: Denies threats or abuse. Denies injuries from another. Nutritional iw screening: No deficits noted. Tuberculosis screening: No symptoms or risk factors identified. Fall Risk None identified. Assessment: 10:25 Reassessment: Patient is alert, oriented x 3, equal unlabored respirations, skin aa5 warm/dry/pink. Pt to CT via wheelchair at this time . Vital Signs: 08:57 BP 133 / 77; Pulse 77; Resp 16; Temp 97.3; Pulse Ox 100% on R/A; iw ED Course: 08:50 Patient arrived in ED. am2 08:59 Triage completed. iw 08:59 [address], RESOURCING CONSULTANT is PHCP. pm1 08:59 Roland Us DO is Attending Physician. pm1 08:59 Arm band placed on. iw 09:43 Abdomen Limited US In Process Unspecified. EDMS 10:10 Veronica Mcdermott, RN is Primary Nurse. iw 10:13 Inserted saline lock: 20 gauge in right antecubital area, using aseptic technique. kc6 Blood collected. 10:25 Patient has correct armband on for positive identification. iw 10:34 CT Abd/Pelvis - IV Contrast Only In Process Unspecified. EDMS 10:50 IV discontinued, intact, bleeding controlled, Pressure dressing applied, IV aa5 infiltrated, swelling noted and pt c/o pain to site, RESOURCING CONSULTANT was notified. 11:27 No provider procedures requiring assistance completed. iw Administered Medications: 10:58 Discontinued: NS 0.9% 1000 ml IV at 1 bolus Per protocol; 1000 mL bolus aa5 10:15 Drug: NS 0.9% 1000 ml Route: IV; Rate: 1 bolus; Site: right antecubital; aa5 10:25 Follow up: IV Pause: 06/25/2022 10:25; IV Pause Reason: Patient to CT aa5 10:45 Follow up: IV Resume: 06/25/2022 10:45; IV Resume Reason: Patient returned from CT aa5 11:50 Follow up: IV Status: IV converted to saline lock iw 10:15 Drug: Pepcid (famotidine) 20 mg Route: IVP; Site: right antecubital; aa5 10:25 Follow up: Response: No adverse reaction aa5 10:15 Drug: Zofran (Ondansetron) 4 mg Route: IVP; Site: right antecubital; aa5 10:25 Follow up: Response: No adverse reaction aa5 10:17 Drug: morphine 4 mg Route: IVP; Infused Over: 4 mins; Site: right antecubital; aa5 10:25 Follow up: Response: No adverse reaction aa5 Medication: 10:25 VIS not applicable for this client. iw Outcome: 11:02 Discharge ordered by . pm1 11:27 Discharged to home ambulatory. iw 11:27 Condition: good 11:27 Discharge instructions given to patient, Instructed on discharge instructions, follow up and referral plans. Demonstrated understanding of instructions, follow-up care, medications, Prescriptions given X 2. 11:28 Patient left the ED. iw Addendum: 06/28/2022 07:34 Addendum: Culture Results: Positive urine culture. No further action required. Bacteria e b sensitive to prescribed antibiotic. Signatures: Dispatcher [employer] EDVeronica Vanegas RN RN iw Karlee Marion RN RN aa5 Aniceto Plaza, SALLY RESOURCING CONSULTANT pm1 Jill Lombardi am2 Miriam Ann Kaitlyn kc6 Corrections: (The following items were deleted from the chart) 06/25 18:44 11:27 Discharge instructions given to patient, Instructed on discharge instructions, iw follow up and referral plans. Demonstrated understanding of instructions, follow-up care, medications, Prescriptions given X 1, iw
--- NOTE | 2022-06-25 11:03 | EDPHYS ---
Physician Documentation [facility] Name: Genesis Hu Age: 31 yrs Sex: Female : 1990 Arrival Date: 06/25/2022 Time: 08:50 Bed DIS1 Private MD: ED Physician Roland Us HPI: 06/25 09:12 This 31 yrs old Female presents to ER via Ambulatory with complaints of Abdominal Pain. pm1 09:12 The patient presents with abdominal pain in the right upper quadrant. Onset: The pm1 symptoms/episode began/occurred 3 day(s) ago. The symptoms do not radiate. Associated signs and symptoms: Pertinent positives: nausea, Pertinent negatives: chest pain, diarrhea, dysuria, fever, shortness of breath, vomiting. The symptoms are described as crampy, sharp. Modifying factors: The symptoms are alleviated by nothing, the symptoms are aggravated by food, Drinking water. Severity of pain: in the emergency department the pain is unchanged. The patient has experienced a previous episode, approximately 1 months ago, gallbladder issues. The patient has not recently seen a physician. Historical: - Allergies: 08:59 Amoxicillin; iw 08:59 Bleach (Sodium Hypochlorite); iw 08:59 Latex, Natural Rubber; iw 08:59 PENICILLINS; iw - PMHx: 08:59 hiatal hernia; PCOS; peptic ulcer; iw - PSHx: 08:59 section; tubal ligation; iw - Immunization history:: Adult Immunizations unknown. - Social history:: Smoking status: Patient denies any tobacco usage or history of. ROS: 09:12 Constitutional: Negative for fever, chills, and weight loss, Cardiovascular: Negative pm1 for chest pain, palpitations, and edema, Respiratory: Negative for shortness of breath, cough, wheezing, and pleuritic chest pain. 09:12 Back: Negative for injury and pain, : Negative for injury, bleeding, discharge, and swelling, MS/Extremity: Negative for injury and deformity, Skin: Negative for injury, rash, and discoloration, Neuro: Negative for headache, weakness, numbness, tingling, and seizure. 09:12 Abdomen/GI: Positive for abdominal pain, nausea, of the right upper quadrant, Negative for vomiting, diarrhea, constipation. 09:12 All other systems are negative. Exam: 09:12 Constitutional: This is a well developed, well nourished patient who is awake, alert, pm1 and in no acute distress. Head/Face: Normocephalic, atraumatic. 09:12 Back: No spinal tenderness. No costovertebral tenderness. Full range of motion. Skin: Warm, dry with normal turgor. Normal color with no rashes, no lesions, and no evidence of cellulitis. MS/ Extremity: Pulses equal, no cyanosis. Neurovascular intact. Full, normal range of motion. 09:12 Eyes: Exam is negative for acute changes, Periorbital structures: appear normal, no acute changes, Pupils: no acute changes, Extraocular movements: no acute changes, Conjunctiva: no acute changes, no injection. 09:12 ENT: Exam is negative for acute changes, Mouth: no acute changes, Lips: normal, moist, Oral mucosa: normal, pink and intact, moist. 09:12 Cardiovascular: Exam negative for acute changes, Rate: normal, Rhythm: regular, Pulses: no pulse deficits are appreciated. 09:12 Respiratory: Exam negative for acute changes, respiratory distress, shortness of breath. 09:12 Abdomen/GI: Inspection: abdomen appears normal, Palpation: soft, in all quadrants, mild abdominal tenderness, in the right upper quadrant. 09:12 Neuro: Exam negative for acute changes, Orientation: is normal, Mentation: is normal, Motor: is normal, moves all fours, Gait: is steady, at a normal pace, without difficulty. Vital Signs: 08:57 BP 133 / 77; Pulse 77; Resp 16; Temp 97.3; Pulse Ox 100% on R/A; iw MDM: 09:00 Patient medically screened. pm1 10:11 Data reviewed: vital signs. Data interpreted: Pulse oximetry: on room air is 100 %. pm1 Interpretation: normal. Counseling: I had a detailed discussion with the patient and/or guardian regarding: lab results, radiology results, pending CT scan and results. 11:20 ED course: Patient with throat swelling from penicillin, therefore patient not given pm1 Rocephin for UTI. Will discharge patient home with sulfa for her UTI. 06/25 09:11 Order name: CBC with Diff; Complete Time: 09:36 pm1 06/25 09:11 Order name: CMP; Complete Time: 10:00 pm1 06/25 09:11 Order name: Lipase; Complete Time: 10:00 pm1 06/25 09:31 Order name: Urine Dipstick-Ancillary; Complete Time: 09:33 EDMS 06/25 09:34 Order name: Urine --Ancillary (enter results); Complete Time: 10:05 em1 06/25 09:36 Order name: Urine Microscopic Only; Complete Time: 10:05 pm1 06/25 09:11 Order name: Abdomen Limited US; Complete Time: 10:05 pm1 06/25 09:11 Order name: CT Abd/Pelvis - IV Contrast Only; Complete Time: 10:48 pm1 06/25 09:11 Order name: IV Saline Lock; Complete Time: 10:12 pm1 06/25 10:04 Order name: Urine Culture EDMD 06/25 09:11 Order name: Labs collected and sent; Complete Time: 10:12 pm1 06/25 09:11 Order name: Urine Dipstick-Ancillary (obtain specimen); Complete Time: 09:33 pm1 06/25 09:11 Order name: Urine Test (obtain specimen); Complete Time: 09:33 pm1 Administered Medications: 10:58 Discontinued: NS 0.9% 1000 ml IV at 1 bolus Per protocol; 1000 mL bolus aa5 10:15 Drug: NS 0.9% 1000 ml Route: IV; Rate: 1 bolus; Site: right antecubital; aa5 10:25 Follow up: IV Pause: 06/25/2022 10:25; IV Pause Reason: Patient to CT aa5 10:45 Follow up: IV Resume: 06/25/2022 10:45; IV Resume Reason: Patient returned from CT aa5 11:50 Follow up: IV Status: IV converted to saline lock iw 10:15 Drug: Pepcid (famotidine) 20 mg Route: IVP; Site: right antecubital; aa5 10:25 Follow up: Response: No adverse reaction aa5 10:15 Drug: Zofran (Ondansetron) 4 mg Route: IVP; Site: right antecubital; aa5 10:25 Follow up: Response: No adverse reaction aa5 10:17 Drug: morphine 4 mg Route: IVP; Infused Over: 4 mins; Site: right antecubital; aa5 10:25 Follow up: Response: No adverse reaction aa5 Disposition: 06/26 10:51 Co-signature as Attending Physician, Roland Us DO I agree with the assessment and ms3 plan of care. Disposition Summary: 06/25/22 11:02 Discharge Ordered Location: Home pm1 Problem: new pm1 Symptoms: have improved pm1 Condition: Stable pm1 Diagnosis - Abdominal pain, unspecified pm1 - UTI/ Urinary tract infection, site not specified pm1 Followup: pm1 - With: Emergency Department - When: As needed - Reason: Worsening of condition Followup: pm1 - With: Private Physician - When: 2 - 3 days - Reason: Recheck today's complaints, Continuance of care, Re-evaluation by your physician Discharge Instructions: - Discharge Summary Sheet pm1 - Abdominal Pain, Adult pm1 - Urinary Tract Infection, Adult pm1 Forms: - Medication Reconciliation Form pm1 - Thank You Letter pm1 - Antibiotic Education pm1 - Prescription Opioid Use pm1 - Work release form pm1 Prescriptions: - Bactrim DS 800-160 mg Oral Tablet - take 1 tablet by ORAL route every 12 hours for 10 days; 20 tablet; Refills: 0, pm1 Product Selection Permitted - Tylenol-Codeine #3 300 mg-30 mg Oral - take 2 tablet by ORAL route every 6 hours As needed; 20 tablet; Refills: 0, pm1 Product Selection Permitted Signatures: Dispatcher [employer] Veronica Melgar, RN Karlee Lei RN RN aa5 An[place]eto Plaza, SALLY MANAGER BOOK pm1 Roland Us DO DO ms3
[2022-06-25 11:38] VITALS: BP 133/77; TEMP 97.3; O2SAT 100
== END 2022-06-25 11:28 | disposition home or self-care (01) ==
LOC: ER 08:29
DX: N39.0 Urinary tract infection, site not specified (principal); Z88.0 Allergy status to penicillin; Z88.1 Allergy status to other antibiotic agents; Z91.040 Latex allergy status; Z91.048 Other nonmedicinal substance allergy status
CPT/HCPCS: 96361; 87088; 85025; 87086; 36415; 81025; 87077; 87186; 83690; 80053; 74177; 76705; 96375; 96374; 99284; Q9967; J7030; J2405; 81003; 81015

== ENCOUNTER 2022-07-20 10:58 | Emergency (ER) | payer OTHER ==
--- OUTSIDE RECORDS SUMMARY | 2022-07-20 11:04 | XMS REPORT | Continuity of Care Document ---
:1990 Author Organization [facility] t Address [address] [place] [address] Care Team Providers Name Role Phone Pcp, [...] ANJALI MERIDA Attending Clinician Unavailable Doctor Unassigned, [place] Attending Clinician Unavailable Jose David Valle MD [...] ity of 00:00: g of this [place] note Medical might be Branch different from the original. 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 1 hr- 47 Immune to Immune to Disease Active Uni vers varicella varicella 07-05 ity of 00:00: [place] 00 Medical Branch High-risk High-risk Disease Active Overview: Univers 06-30 Formattin i ty of 00:00: g of this [place] 00 note Medical might be Branch different from the original. Medical records received. [facility]. DOS- 0. CC: 30 weeks w/ twins, vomiting black liquid. No evidence of hepatitis , pancreati tis, or liver dysfuncti on. Physiolog ic anemia. No UTI or ketonuria . 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 Send to [facility] at 16 weeks Pain Pain Disease [...] ers POLLEN INGREDI 1-31 ity of 00:00: [place] [address] Medical Branch Bee Propensi Active Unknown - Unive rs Pollen ty to See comments 12-01 ity of adverse 00:00: [place] reaction 00 Medical s Branch Social History Social Habit Start Date Stop Date Quantity Comments Source Alcohol intake 2022-05-10 2022-05-10 Current University 00:00:00 00:00:00 non-drinker of [facility] alcohol [place] (finding) Exposure to 2022-04-29 2022-05-09 Not sure [facility] SARS-CoV-2 00:00:00 21:36:00 [facility] (event) Branch Tobacco use and 2013-06-30 2013-06-30 Never used Universit y of exposure 00:00:00 00:00:00 [facility] Sex [birth year] At [birth year] Universit y of 00:00:00 00:00:00 [facility] Smoking Status Start Date Stop Date Source Never smoker [facility] Medications Ordered Filled Start Stop Current Ordering Indication Dosage Frequency Signature Comments Components Source Medication Medication Date Date Medication? Clinician (SIG) Name Name dicyclomine No 20mg 20 mg, Uni vers (BENTYL) 05-10 Intramuscu ity of injection 04:15: 03:38 lar, ONCE, [place] 20 mg 00 :00 1 dose, On Medical 05/09/22 Branch at 2315, Routine dicyclomine Yes [id number] 20mg Take 1 Univers 20 mg -10 tablet by ity of tablet 00:00: mouth 4 [place] 00 (four) Medical times Branch daily as needed for Abdominal pain. ferrous 2021- No 1{tbl} Take 1 Unive rs sulfate/vit 05-09 tablet by it y of C/folic ac 23:56: 00:00 mouth [place] (FERROUS 54 :00 daily. Medical SULFATE-C-F Branch OLIC ACID ORAL) dicyclomine 2021- No [id number] 20mg Take 1 Univers 20 mg 05-09 tablet by ity of tablet 00:00: 00:00 mouth 4 [place] 00 :00 (four) Medical times [place] daily as needed for Abdominal pain. clarithromy Yes [id number] 500mg Take 1 Univers dominique 500 mg 2-23 tablet by ity of tablet 00:00: mouth [place] 00 every 12 Medical (twelve) Branch hours. pantoprazol Yes [id number] 40mg Take 1 Univers e 40 mg EC 2-23 tablet by ity of tablet 00:00: mouth [place] 00 daily. Medical Branch pantoprazol Yes [id number] 40mg Take 1 Univers e 40 mg EC 2-23 tablet by ity of tablet 00:00: mouth [place] 00 daily. Medical Branch clarithromy 2021- No [id number] 500mg Take 1 Univers dominique 500 mg 2-23 -09 tablet by ity of tablet 00:00: 00:00 mouth [place] 00 :00 every 12 Medical (twelve) Branch hours. sucralfate 2021- No [id number] 1g Take 1 Univers 1 gram 2-23 - tablet by ity of tablet 00:00: 04:59 mouth [place] 00 :00 before Medical meals and Branch at bedtime for 30 days. metroNIDAZO 2021- No [id number] 500mg Take 1 Univers LE 500 mg 2-23 -10 tablet by ity of tablet 00:00: 05:59 mouth [place] 00 :00 every 8 Medical (eight) Branch hours for 14 days. sucralfate 2021- No [id number] 1g Take 1 Univers 1 gram 2-23 - tablet by ity of tablet 00:00: 00:00 mouth [place] 00 :00 before Medical meals and Branch at bedtime. maalox:diph 2021- No 15mL 15 mL, Uni vers enhydrAMINE 2 02- Oral, ity of :lidocaine 21:30: 20:30 ONCE, 1 [place] as 2 % viscous 00 :00 dose, On Medi denzel 1:1:1 12/08/21 Branch ([facility] at 1530, [facility]) Routine oral suspension 15 mL sucralfate Yes [id number] 1g Take 1 U nivers 1 gram 2-07 tablet by ity of tablet 00:00: mouth [place] 00 before Medical meals and Branch at bedtime. dicyclomine Yes [id number] 10mg Take 1 Univers (BENTYL) 10 2-07 capsule by it y of mg capsule 00:00: mouth [place] 00 every 8 Medical (eight) Branch hours as needed for Abdominal pain. ondansetron Yes [id number] 4mg Take 1 Univers 4 mg 2-07 tablet by ity of disintegrat 00:00: mouth [place] ing tablet 00 every 8 Medica l (eight) Branch hours as needed for Nausea and Vomiting (N/V). dicyclomine Yes [id number] 10mg Take 1 Univers (BENTYL) 10 2-07 capsule by it y of mg capsule 00:00: mouth [place] 00 every 8 Medical (eight) Branch hours as needed for Abdominal pain. ondansetron Yes [id number] 4mg Take 1 Univers 4 mg 2-07 tablet by ity of disintegrat 00:00: mouth [place] ing tablet 00 every 8 Medica l (eight) Branch hours as needed for Nausea and Vomiting (N/V). ondansetron Yes [id number] 4mg Take 1 Univers 4 mg 2-07 tablet by ity of disintegrat 00:00: mouth [place] ing tablet 00 every 8 Medica l (eight) Branch hours as needed for Nausea and Vomiting (N/V). dicyclomine 2021- No [id number] 10mg Take 1 Univers (BENTYL) 10 2-05 07-09 capsule by i ty of mg capsule 00:00: 00:00 mouth [place] 00 :00 every 8 Medical (eight) Branch hours as needed for Abdominal pain. omeprazole 2021- No [id number] 20mg Take 1 Univers 20 mg 2-10 capsule by ity of capsule 00:00: 05:59 mouth [place] 00 :00 daily for Medical 30 days. Branch omeprazole 2021- No [id number] 20mg Take 1 Univers 20 mg 2- 03-10 capsule by ity of capsule 00:00: 05:59 mouth [place] 00 :00 daily for Medical 30 days. Branch sucralfate 2021- No [id number] 1g Take 1 Univers 1 gram 2-05 02- tablet by ity of tablet 00:00: 00:00 mouth [place] 00 :00 before Medical meals and Branch at bedtime. bismuth-met 2021- No [id number] 3{capsu Take 3 Univers ronidazole- 2-07 - le} capsules ity of tetracyclin 00:00: 05:59 by mouth [place] e 00 :00 before Medical 140-125-125 meals and Bra nch mg per at bedtime capsule for 14 days. pantoprazol 2020-11 Yes [id number] 40mg Take 1 Univers e 2-13 tablet by ity of (PROTONIX) 00:00: mouth [place] 40 mg EC 00 daily. Medical tablet Branch pantoprazol 2020-11 Yes [id number] 40mg Take 1 Univers e 2-13 tablet by ity of (PROTONIX) 00:00: mouth [place] 40 mg EC 00 daily. Medical tablet Branch pantoprazol 2020-11- No [id number] 40mg Take 1 Univers e 2-13 - tablet by ity of (PROTONIX) 00:00: 00:00 mouth [place] 40 mg EC 00 :00 daily. Medical tablet Branch sucralfate 2020-11- No [id number] 1g Take 1 Univers 1 gram 2-13 -13 tablet by ity of tablet 00:00: 05:59 mouth [place] 00 :00 before Medical meals and Branch at bedtime for 30 days. dicyclomine 2020-11 Yes 10mg 10 mg, Univ ers (BENTYL) 11-23 Oral, QID, ity o f capsule 10 18:00: First dose [place] mg 00 on [facility] 09/23/21 Branch at 1200, Until Discontinu ed, Routine sucralfate 2020-11 Yes 1g 1 g, Oral, U nivers (CARAFATE) 11-23 AC+HS, ity of tablet 1 g 17:30: First dose [place] 00 on [facility] 09/23/21 Branch at 1130, Until Discontinu ed, Routine pantoprazol 2020-11- No 40mg 40 mg, Uni vers e 11-23 Slow IV ity of (PROTONIX) 15:45: 15:00 Push, [place] injection 00 :00 ONCE, 1 Medical 40 mg dose, On Branch [facility] 09/23/21 at 0945 dicyclomine 2020-11 Yes [id number] 10mg Take 1 Univers (BENTYL) 10 11-23 capsule by it y of mg capsule 00:00: mouth [place] 00 every 8 Medical (eight) Branch hours as needed for Abdominal pain. ondansetron 2020-11 Yes [id number] 4mg Take 1 Univers 4 mg 1-23 tablet by ity of disintegrat 00:00: mouth [place] ing tablet 00 every 8 Medica l (eight) Branch hours as needed for Nausea and Vomiting (N/V). sucralfate 2020-11 Yes [id number] 1g Take 1 U nivers 1 gram 1-23 tablet by ity of tablet 00:00: mouth [place] 00 before Medical meals and Branch at bedtime. dicyclomine 2020-11 Yes [id number] 10mg Take 1 Univers (BENTYL) 10 -23 capsule by it y of mg capsule 00:00: mouth [place] 00 every 8 Medical (eight) Branch hours as needed for Abdominal pain. ondansetron 2020-11 Yes [id number] 4mg Take 1 Univers 4 mg 1-23 tablet by ity of disintegrat 00:00: mouth [place] ing tablet 00 every 8 Medica l (eight) Branch hours as needed for Nausea and Vomiting (N/V). pantoprazol 2020-11 Yes [id number] 40mg Take 1 Univers e 1-23 tablet by ity of (PROTONIX) 00:00: mouth [place] 40 mg EC 00 daily. Medical tablet Branch dicyclomine 2020-11- No [id number] 10mg Take 1 Univers (BENTYL) 10 1-23 02-07 capsule by i ty of mg capsule 00:00: 00:00 mouth [place] 00 :00 every 8 Medical (eight) Branch hours as needed for Abdominal pain. ondansetron 2020-11- No [id number] 4mg Take 1 Univers 4 mg 1-23 02-07 tablet by ity of disintegrat 00:00: 00:00 [place] ing tablet 00 :00 every 8 Medica l (eight) Branch hours as needed for Nausea and Vomiting (N/V). sucralfate 2020-11- No [id number] 1g Take 1 Univers 1 gram 1-23 12-13 tablet by ity of tablet 00:00: 00:00 mouth [place] 00 :00 before Medical meals and Branch at bedtime. pantoprazol 2020-11- No [id number] 40mg Take 1 Univers e 1-23 12-13 tablet by ity of (PROTONIX) 00:00: 00:00 mouth [place] 40 mg EC 00 :00 daily. Medical tablet Branch ciprofloxac Yes [id number] 500mg Take 1 Univers in HCl 500 1-25 tablet by ity of mg tablet 00:00: mouth 2 [place] 00 (two) Medical times Branch daily. ciprofloxac 2020- No [id number] 500mg Take 1 Univers in HCl 500 1-25 12-13 tablet by ity of mg tablet 00:00: 00:00 mouth 2 [place] 00 :00 (two) Medical times Branch daily. ondansetron 2020- No [id number] 4mg Take 1 Univers (ZOFRAN 1-25 -23 tablet by ity of ODT) 4 mg 00:00: 00:00 mouth [place] disintegrat 00 :00 every 8 Medic al ing tablet (eight) Branch hours as needed for Nausea and Vomiting (N/V). cyclobenzap 2019-11 Yes [id number] 10mg Take 1 Univers rine 10 mg 1-11 tablet by ity of tablet 00:00: mouth 3 00 (three) Medical times Branch daily. cyclobenzap 2019-11 Yes [id number] 10mg Take 1 Univers rine 10 mg 1-11 tablet by ity of tablet 00:00: mouth 3 (three) Medical times Branch daily. cyclobenzap 2019-11 Yes [id number] 10mg Take 1 Univers rine 10 mg 1-11 tablet by ity of tablet 00:00: mouth 3 00 (three) Medical times Branch daily. cyclobenzap 2019-11 Yes [id number] 10mg Take 1 Univers rine 10 mg 1-11 tablet by ity of tablet 00:00: mouth 3 00 (three) Medical times Branch daily. ibuprofen 2019-11 Yes [id number] 600mg Take 1 Univers 600 mg 1-11 tablet by ity of tablet 00:00: mouth [place] 00 every 6 Medical (six) Branch hours as needed for Pain (scale 4-6). cyclobenzap 2019-11 Yes [id number] 10mg Take 1 Univers rine 10 mg 1-11 tablet by ity of tablet 00:00: mouth 3 00 (three) Medical times Branch daily. ibuprofen 2019-11- No [id number] 600mg Take 1 Univers 600 mg 1-11 [...] Branch OLIC ACID ORAL) bromphenira 2020-0 Yes [id number] 5mL Take 5 mL Univers mine-pseudo 4-04 by mouth 4 it y of ephedrine-D 00:00: (four) [place] M (BROMFED 00 times Medical DM) 2-30-10 daily as Bran ch mg/5 mL needed for syrup Congestion /Allergies or Cough. bromphenira 2020-0 Yes [id number] 5mL Take 5 mL Univers mine-pseudo 4-04 by mouth 4 it y of ephedrine-D 00:00: (four) [place] M (BROMFED 00 times Medical DM) 2-30-10 daily as Bran ch mg/5 mL needed for syrup Congestion /Allergies or Cough. bromphenira 2020-0 Yes [id number] 5mL Take 5 mL Univers mine-pseudo 4-04 by mouth 4 it y of ephedrine-D 00:00: (four) [place] M (BROMFED 00 times Medical DM) 2-30-10 daily as Bran ch mg/5 mL needed for syrup Congestion /Allergies or Cough. methylPREDN 2020-0 Yes [id number] Take by Univers ISolone 4 4-04 mouth ity of mg tablets 00:00: SEE-INSTRU [place] 00 CTIONS. Medical follow Branch package directions levoFLOXaci 2020-0 Yes [id number] 500mg Take 1 Univers n 4-04 tablet by ity of (LEVAQUIN) 00:00: mouth [place] 500 mg 00 every 24 Medical tablet (twenty-fo Branch ur) hours. bromphenira 2020-0 Yes [id number] 5mL Take 5 mL Univers mine-pseudo 4-04 by mouth 4 it y of ephedrine-D 00:00: (four) [place] M (BROMFED 00 times Medical DM) 2-30-10 daily as Bran ch mg/5 mL needed for syrup Congestion /Allergies or Cough. bromphenira 2020-0 2021- No [id number] 5mL Take 5 mL Univers mine-pseudo 4-04 07-09 by mouth 4 i ty of ephedrine-D 00:00: 00:00 (four) [place] as M (BROMFED 00 :00 times Medical DM) 2-30-10 daily as Bran ch mg/5 mL needed for syrup Congestion /Allergies or Cough. methylPREDN 2019-0 2020- No [id number] Take by Univers ISolone 4 4-04 12-13 mouth ity of mg tablets 00:00: 00:00 SEE-INSTRU [place] 00 :00 CTIONS. Medical follow Branch package directions levoFLOXaci 2020-0 2020- No [id number] 500mg Take 1 Univers n 4-04 12-13 tablet by ity of (LEVAQUIN) 00:00: 00:00 mouth [place] 500 mg 00 :00 every 24 Medical tablet (twenty-fo Branch ur) hours. Immunizations Ordered Filled Immunization Date Status Comments [facility] e Immunization Name Name Td 2016-04-30 Completed University of 00:00:00 [facility] Td 2016-04-30 Completed University of 00:00:00 [facility] Td 2016-04-30 Completed University of 00:00:00 [facility] Td 2016-04-30 Completed University of 00:00:00 [facility] Td 2016-04-30 Completed University of 00:00:00 [facility] Rubella 2010-04-22 Completed University of 00:00:00 [facility] Rubella 2010-04-22 Completed University of 00:00:00 [facility] Rubella 2010-04-22 Completed University of 00:00:00 [facility] Branch Rubella 2010-04-22 Completed University of 00:00:00 [place] [facility] Rubella 2010-04-22 Completed University of 00:00:00 [place] [facility] Td 2006-06-30 Completed University of 00:00:00 [place] [facility] Td 2006-06-30 Completed University of 00:00:00 [place] [facility] Td 2006-06-30 Completed University of 00:00:00 [place] [facility] Td 2006-06-30 Completed University of 00:00:00 [place] [facility] Td 2006-06-30 Completed University of 00:00:00 [facility] Branch Vital Signs Vital Name Observation Time Observation Value Comments Source Systolic blood 2022-05-10 05:14:00 125 mm[Hg] Univer sity of pressure [facility] Diastolic blood 2022-05-10 05:14:00 81 mm[Hg] Unive rsity of [facility] Heart rate 2022-05-10 05:14:00 62 /min [facility] Respiratory rate 2022-05-10 05:14:00 17 /min [facility] Oxygen saturation in 2022-05-10 05:14:00 99 /min [facility] Arterial blood by [facility] Pulse oximetry [place] Body temperature 2022-05-10 02:44:00 36.44 [place] [facility] Body height 2022-05-10 02:44:00 167.6 cm [facility] Body weight 2022-05-10 02:44:00 103.828 kg [facility] BMI 2022-05-10 02:44:00 36.95 kg/m2 [facility] Systolic blood 2021-12-24 17:26:00 147 mm[Hg] Univer sity of pressure [facility] Diastolic blood 2021-12-24 17:26:00 80 mm[Hg] Unive rsity of pressure [facility] Heart rate 2021-12-24 17:26:00 71 /min [facility] Body temperature 2021-12-24 17:26:00 36.17 [place] [facility] rate 2021-12-24 17:26:00 18 /min [facility] Body weight 2021-12-24 17:26:00 86.183 kg Universi ty of [place] [facility] BMI 2021-12-24 17:26:00 29.76 kg/m2 Universi ty of [place] [facility] Oxygen saturation in 2021-12-24 17:26:00 99 /min University of Arterial blood by [place] Medi denzel Pulse oximetry Branch Systolic blood 2021-12-08 18:45:00 131 mm[Hg] Univer sity of pressure [place] [facility] Diastolic blood 2021-12-08 18:45:00 91 mm[Hg] Unive rsity of pressure [place] [facility] Heart rate 2021-12-08 18:45:00 86 /min Universi ty of [place] [facility] Body temperature 2021-12-08 18:45:00 36.72 [place] Univ ersity of [place] [facility] Respiratory rate 2021-12-08 18:45:00 18 /min Univ ersity of [place] [facility] Body weight 2021-12-08 18:45:00 86.183 kg Universi ty of [place] [facility] BMI 2021-12-08 18:45:00 29.76 kg/m2 Universi ty of [place] [facility] Oxygen saturation in 2021-12-08 18:45:00 98 /min University of Arterial blood by [facility] Pulse oximetry Branch Systolic blood 2021-10-13 13:42:00 123 mm[Hg] Univer sity of pressure [place] [facility] Diastolic blood 2021-10-13 13:42:00 78 mm[Hg] Unive rsity of pressure [place] [facility] Heart rate 2021-10-13 13:42:00 86 /min Universi ty of [place] [facility] Body temperature 2021-10-13 13:42:00 36.78 [place] Univ ersity of [place] [facility] Respiratory rate 2021-10-13 13:42:00 18 /min Univ ersity of [place] [facility] Body weight 2021-10-13 13:42:00 86.183 kg Universi ty of [place] [facility] BMI 2021-10-13 13:42:00 29.76 kg/m2 Universi ty of [place] [facility] Oxygen saturation in 2021-10-13 13:42:00 98 /min University of Arterial blood by [facility] denzel Pulse oximetry Branch Systolic blood 2021-09-23 16:00:00 128 mm[Hg] Univer sity of pressure [place] [facility] Diastolic blood 2021-09-23 16:00:00 79 mm[Hg] [facility] of pressure [facility] Heart rate 2021-09-23 16:00:00 79 /min [facility] Body temperature 2021-09-23 16:00:00 36.72 [place] [facility] Oxygen saturation in 2021-09-23 16:00:00 100 /min [facility] Arterial blood by [facility] Pulse oximetry Branch Respiratory rate 2021-09-23 14:25:00 18 /min [facility] Body height 2021-09-23 14:25:00 170.2 cm [facility] Body weight 2021-09-23 14:25:00 86.183 kg [facility] BMI 2021-09-23 14:25:00 29.76 kg/m2 [facility] Procedures Procedure Date / Time Performed Performing Clinician Sourc e LIPASE 2022-05-10 03:37:00 Farzaneh Bo [facility] COMP. METABOLIC PANEL 2022-05-10 03:37:00 Farzaneh Bo [facility] ([id number]) [facility] CBC WITH DIFF 2022-05-10 03:37:00 Farzaneh Bo [facility] POCT TEST 2022-05-10 02:49:00 Farzaneh Bo [facility] URINALYSIS 2022-05-10 02:48:00 Farzaneh oB [facility] NOTICE OF PRIVACY 2022-05-10 02:33:25 Doctor Unassigned, No [facility] CONSENT/REFUSAL FOR 2022-05-10 02:31:34 Doctor Unassigned, No Un iversity of [place] DIAGNOSIS AND Name Medical Branch TREATMENT CONSENT/REFUSAL FOR 2021-12-24 17:15:06 Doctor Unassigned, No Un iversity of [place] DIAGNOSIS AND Name Medical Branch TREATMENT NOTICE OF PRIVACY 2021-12-08 18:35:32 [facility], [facility] CONSENT/REFUSAL FOR 2021-12-08 18:35:08 Doctor Unassigned, No Un iversity of [place] DIAGNOSIS AND Name Medical Branch TREATMENT ASSIGNMENT OF BENEFITS 2021-10-13 13:51:35 Doctor Unassigned, No [facility] Name Medical Branch CONSENT/REFUSAL FOR 2021-10-13 13:36:21 Doctor Unassigned, No [facility] AND Name Medical Branch TREATMENT COMP. METABOLIC PANEL 2021-09-23 15:35:00 [facility]ridhar [facility] ([id number]) Medical Branch LIPASE 2021-09-23 14:59:00 [facility] CBC WITH DIFF 2021-09-23 14:59:00 [facility] CONSENT/REFUSAL FOR 2021-09-23 14:17:56 Doctor Unassigned, No [facility] DI[facility]NOSIS AND Name Medical Branch TREATMENT Encounters Start End Encounter Admission Attending Care Care Encounter Source Date/Time Date/Time Type Type Clinicians Facility Department ID 2022-05-09 2022-05-10 [facility] [id number] Univers 21:49:00 00:20:00 FARZANEH busby [facility] 2022-05-09 2022-05-10 Emergency [facility] [id number] Univers 21:49:00 00:20:00 Farzaneh OWENS [id number] itkamari [facility] [id number] [facility] [id number] [address] 2021-12-24 2021-12-24 Emergency [facility] [id number] Univers 11:28:00 13:33:00 JAYY busby [facility] 2021-12-24 2021-12-24 Emergency [facility] [id number] Univers 11:28:00 13:33:00 Jayy [place] [id number] i asael [facility] [id number] [facility] [id number] [address] 2021-12-08 2021-12-08 Emergency [facility] [id number] Univers 12:45:00 14:51:00 SRIDHAR kamari [facility] 2021-12-08 2021-12-08 Emergency [facility] [id number] Univers 12:45:00 14:51:00 Sridhar [place] [id number] i ty of [place] 4.2.7.2.686 [facility] [id number] [address] 2021-10-13 2021-10-13 Emergency [facility] ERT [id number] Univers 07:44:00 07:58:00 LATHA itkamari [facility] 2021-10-13 2021-10-13 Emergency [facility] [id number] Univers 07:44:00 07:58:00 Latha [place] [id number] ity [facility] [id number] [place] [id number] 2021-09-23 2021-09-23 Emergency X [facility] ERT [id number] Univers 08:30:00 10:37:00 [facility] 2021-09-23 2021-09-23 [facility] [id number] Univers 08:30:00 10:37:00 Sridhar OWENS [id number] i ty of [place] 4.2.7.[address] [place] [id number] 2020-11-25 2020-11-25 Emergency Kyra Medeiros [facility] [id number] 15:24:00 20:37:00 Nat Owens [id number] [place] [id number] [place] [address] [id number] [facility] 2020-11-25 2020-11-25 Emergency X [facility] ERT [id number] Univers 15:14:00 15:14:00 ity [facility] 2020-10-31 2020-10-31 Emergency Jack Brower [facility] [id number] 09:18:00 12:22:00 Gaby Owens [id number] [place] [id number] [place] [address] [id number] 082020-10-31 2020-10-31 Emergency X JACK BROWER [facility] ERT [id number] Univers 09:18:00 09:18:00 ity of [facility] 2020-09-11 2020-09-11 Emergency Kyra Medeiros [facility] [id number] 14:32:00 16:08:00 Nat [place] [id number] [place] 4.2.7.2.686 [place] [id number] 2020-09-11 2020-09-11 Emergency X Kyra MEDEIROS [facility] ERT [id number] Univers 14:32:00 14:32:00 ity of [facility] 2020-02-03 2020-02-03 Emergency Fuad [facility] [id number] 17:08:08 18:20:00 Anjali [place] [id number] [place] 4.2.7.2.686 [place] [id number] 2020-02-03 2020-02-03 Emergency X FUAD [facility] ERT [id number] Univers 17:00:00 17:00:00 ANJALI ity [facility] 2020-02-03 2020-02-03 Orders Doctor DAVID [id number] 00:00:00 00:00:00 Only Unassigned, ANGIE [id number] [place] [facility] [id number] [id number] 2020-01-10 2020-01-11 Emergency [facility] [id number] 23:46:02 01:01:00 Serena 350.1.13.10 [place] 4.2.7.2.686 [place] [id number] 2020-01-10 2020-01-10 Emergency X [facility] ERT [id number] Univers 23:02:00 23:02:00 ity of [facility] 2019-12-18 2019-12-18 Emergency X Kyra MEDEIROS [facility] ERT [id number] Univers 17:24:37 18:57:00 ity of [facility] 2019-12-18 2019-12-18 Emergency Kyra Medeiros [facility] [id number] 17:24:37 18:57:00 Nat Owens 350.1.13.10 [place] 4.2.7.2.686 [place] [id number] 2019-12-18 2019-12-18 Orders Doctor DAVID [id number] 00:00:00 00:00:00 Only Unassigned, ANGIE 350.1.13.10 [facility] 4.2.7.2.686 [id number] 2019-06-29 2019-06-29 Emergency Jayes, [facility] [id number] 02:13:29 04:06:00 Jose David Owens 350.1.13.10 [place] 4.2.7.2.686 [place] [id number] Results Test Description Test Time Test Comments Results Result Comments Source COMP. METABOLIC PANEL (49157) 2022-05-10 04:28:49 Test Item Value Reference Range Interpretation Comme nts NA (test code = 7091378958) 138 mmol/L 135-145 K (test code = 4251271822) 4.2 mmol/L 3.5-5.0 CL (test code = 0267508559) 104 mmol/L 98-108 CO2 TOTAL (test code = 25 mmol/L 23-31 3178659830) AGAP (test code = 6592384285) 2-16 BUN (test code = 2647881038) 9 mg/dL 7-23 GLUCOSE (test code = 8357100811) 103 mg/dL 70-110 CREATININE (test code = 0.78 mg/dL 0.50-1.04 1776825971) TOTAL BILI (test code = 0.3 mg/dL 0.1-1.6 1653976043) CALCIUM (test code = 9076802845) 9.4 mg/dL 8.6-10.6 T PROTEIN (test code = 7.1 g/dL 6.3-8.2 6437353831) ALBUMIN (test code = 4167918122) 4.4 g/dL 3.5-5.0 ALK PHOS (test code = 2455074931) 55 U/L 34-122 ALTv (test code = 1742-6) 25 U/L 5-35 AST(SGOT) (test code = 23 U/L 13-40 5677610888) eGFR (test code = 7883051631) mL/min/1.73m2 JASMYN (test code = JASMYN) Association [...] or abnormalities in imaging tests). [facility] Test Item Value Reference Range Interpretation Comments LIPASE (test code = 9428190046) 58 U/L 0-220 Lab Interpretation (test code = Normal 16338-5) [facility] [id number] 03:54:04 Test Item Value Reference Range Interpretation Comments WBC (test code = See_Comment [Automated 9943-2) message] The sy stem which generated this [...] RDW-SD (test code = 46.1 fL 39.0-49.9 36809-6) RDW-CV (test code = 16.5 % 12.0-15.5 H 788-0) PLT (test code = See_Comment H [Automated 777-3) message] The sy stem which generated this result transmitted reference range : 166 - 358 10*3/ ?L. The reference r juliano was not used to interpret this result as normal/abnormal . MPV (test code = 10.0 fL 9.5-12.9 00249-2) NRBC/100 WBC (test See_Comment [Automat ed code = 9124583023) message] The system which generated this result transmitted reference range : 0.0 - 10.0 /100 WBCs. The refer ence range was not u sed to interpret th is result as normal/abnormal . NRBC x10^3 (test code <0.01 See_Comment [Auto mated = 5676715468) message] The s ystem which generated this result transmitted reference range : 10*3/?L. The reference range was not used to interpret this result as normal/abnormal . GRAN MAT (NEUT) % 57.9 % (test code = 770-8) IMM GRAN % (test code 0.10 % = 9517272546) LYMPH % (test code = 31.1 % 736-9) MONO % (test code = 7.2 % 5905-5) EOS % (test code = 3.4 % 713-8) BASO % (test code = 0.3 % 706-2) GRAN MAT x10^3(ANC) 4.08 10*3/uL 1.88-7.09 (test code = 1927916796) IMM GRAN x10^3 (test <0.03 0.00-0.06 code = 5064565396) LYMPH x10^3 (test code 2.19 10*3/uL 1.32-3.29 = 731-0) MONO x10^3 (test code 0.51 10*3/uL 0.33-0.92 = 742-7) EOS x10^3 (test code = 0.24 10*3/uL 0.03-0.39 711-2) BASO x10^3 (test code <0.03 0.01-0.07 = 704-7) Lab Interpretation Abnormal (test code = 08629-9) [facility] [id number] 02:49:00 Test Item Value Reference Range Interpretation Comments POCT PREG (test code = 1605) Negative On board controls acceptable with Positive C Line (test code = 3574) POCT PREG LOT # (test code = HCG [id number] 4728) POCT PREG TEST DATE (test 08/31/2023 code = 3576) Lab Interpretation (test code = Normal 29899-8) [facility]. METABOLIC PANEL (12335)2021-09-23 16:10:10 Test Item Value Reference Range Interpretation Comments NA (test code = 135 mmol/L 135-145 3217880530) K (test code = 4.5 mmol/L 3.5-5.0 0286978591) CL (test code = 101 mmol/L 98-108 1934249522) CO2 TOTAL (test code 28 mmol/L 23-31 = 9780512212) AGAP (test code = 2-16 1955626532) BUN (test code = 19 mg/dL 7-23 8043971885) GLUCOSE (test code = 94 mg/dL 70-110 1860264552) CREATININE (test code 0.83 mg/dL 0.50-1.04 = 6375530486) TOTAL BILI (test code 0.5 mg/dL 0.1-1.1 = 5238059675) CALCIUM (test code = 9.9 mg/dL 8.6-10.6 5037753596) T PROTEIN (test code 7.6 g/dL 6.3-8.2 = 6907794096) ALBUMIN (test code = 4.5 g/dL 3.5-5.0 6434267966) ALK PHOS (test code = 52 U/L 34-122 4245700494) ALTv (test code = 15 U/L 5-35 1742-6) AST(SGOT) (test code 21 U/L 13-40 = 2379063720) eGFR (test code = mL/min/1.73m2 9450320488) JASMYN (test code = JASMYN) Association of [...] or abnormalities in imaging tests). [facility] 15:52:35 Test Item Value Reference Range Interpretation Comments LIPASE (test code = 0861655605) 72 U/L 0-220 Lab Interpretation (test code = Normal 58663-5) [facility] WITH [id number] 15:37:27 Test Item Value Reference Range Interpretation [...] RDW-SD (test code = 43.4 fL 39.0-49.9 31822-4) RDW-CV (test code = 14.0 % 12.0-15.5 788-0) PLT (test code = See_Comment H [Automated 777-3) message] The sy stem which generated this result transmitted reference range : 166 - 358 10*3/ ?L. The reference r juliano was not used to interpret this result as normal/abnormal . MPV (test code = 10.4 fL 9.5-12.9 92012-2) NRBC/100 WBC (test See_Comment [Automat ed code = 0246554553) message] The system which generated this result transmitted reference range : 0.0 - 10.0 /100 WBCs. The refer ence range was not u sed to interpret th is result as normal/abnormal . NRBC x10^3 (test code <0.01 See_Comment [Auto mated = 2197545571) message] The s ystem which generated this result transmitted reference range : 10*3/?L. The reference range was not used to interpret this result as normal/abnormal . GRAN MAT (NEUT) % 60.5 % (test code = 770-8) IMM GRAN % (test code 0.30 % = 6908428185) LYMPH % (test code = 28.4 % 736-9) MONO % (test code = 6.4 % 5905-5) EOS % (test code = 3.6 % 713-8) BASO % (test code = 0.8 % 706-2) GRAN MAT x10^3(ANC) 3.71 10*3/uL 1.88-7.09 (test code = 7105504997) IMM GRAN x10^3 (test <0.03 0.00-0.06 code = 5270751721) LYMPH x10^3 (test code 1.74 10*3/uL 1.32-3.29 = 731-0) MONO x10^3 (test code 0.39 10*3/uL 0.33-0.92 = 742-7) EOS x10^3 (test code = 0.22 10*3/uL 0.03-0.39 711-2) BASO x10^3 (test code 0.05 10*3/uL 0.01-0.07 = 704-7) Lab Interpretation Abnormal (test code = 25535-7) [facility]"
--- NOTE | 2022-07-20 12:30 | ER ---
Nurse's Notes [facility] Name: Genesis Hu Age: 32 yrs Sex: Female : 1990 Arrival Date: 07/20/2022 Time: 11:00 Bed 9 Private MD: Diagnosis: Acute pharyngitis, unspecified Presentation: 07/20 11:17 Chief complaint: Patient states: Sore throat x 3 days, also reports neck pain and ph chills, denies N/V. Coronavirus screen: Vaccine status: Patient reports being unvaccinated. Ebola Screen: No symptoms or risks identified at this time. Initial Sepsis Screen: Does the patient meet any 2 criteria? No. Patient's initial sepsis screen is negative. Does the patient have a suspected source of infection? No. Patient's initial sepsis screen is negative. Risk Assessment: Do you want to hurt yourself or someone else? Patient reports no desire to harm self or others. Onset of symptoms was July 20, 2022. 11:17 Method Of Arrival: Ambulatory ph 11:17 Acuity: KRISTIN 4 ph Historical: - Allergies: 11:18 Amoxicillin; ph 11:18 Bleach (Sodium Hypochlorite); ph 11:18 Latex, Natural Rubber; ph 11:18 PENICILLINS; ph - PMHx: 11:18 hiatal hernia; peptic ulcer; PCOS; ph - PSHx: 11:18 section; tubal ligation; ph - Immunization history:: Adult Immunizations unknown. - Social history:: Smoking status: Patient denies any tobacco usage or history of. Vital Signs: 11:17 BP 145 / 74; Pulse 92; Resp 18; Temp 97.7; Pulse Ox 100% on R/A; Weight 99.79 kg; ph Height 5 ft. 5 in. (165.10 cm); 11:17 Body Mass Index 36.61 (99.79 kg, 165.10 cm) ph ED Course: 11:00 Patient arrived in ED. mr 11:02 [facility] 11:02 Elyssa Rosenbaum MD is Attending Physician. jh7 11:18 Triage completed. ph 11:19 Arm band placed on Patient placed in waiting room. ph 12:44 David, Jodi, RN is Primary Nurse. ph Administered Medications: 12: Drug: Decadron (dexamethasone) 10 mg Route: IM; Site: left deltoid; ph Outcome: 12:30 Discharge ordered by MD. torres :44 Patient left the ED. ph Signatures: Maria Isabel Rojas Patricia, RN RN ph Xin Green, DIRECTOR OF DIGITAL TECHNOLOGY SHAJI jh7
--- NOTE | 2022-07-20 12:30 | EDPHYS ---
Physician Documentation [facility] Name: Genesis Hu Age: 32 yrs Sex: Female : 1990 Arrival Date: 07/20/2022 Time: 11:00 Bed 9 Private MD: ED Physician Elyssa Rosenbaum HPI: 07/20 11:20 This 32 yrs old Female presents to ER via Ambulatory with complaints of Sore Throat. [facility] 11:20 The patient presents with sore throat. Onset: The symptoms/episode began/occurred 3 jh7 day(s) ago. Associated signs and symptoms: Pertinent positives: dysphagia, Pertinent negatives chest pain, chills, cough, diarrhea, fever. Patient reports history of tonsil stones and tonsillitis.. Historical: - Allergies: 11:18 Amoxicillin; ph 11:18 Bleach (Sodium Hypochlorite); ph 11:18 Latex, Natural Rubber; ph 11:18 PENICILLINS; ph - PMHx: 11:18 hiatal hernia; peptic ulcer; PCOS; ph - PSHx: 11:18 section; tubal ligation; ph - Immunization history:: Adult Immunizations unknown. - Social history:: Smoking status: Patient denies any tobacco usage or history of. ROS: 11:20 Constitutional: Negative for fever, chills, and weight loss, Eyes: Negative for injury, jh7 pain, redness, and discharge, Neck: Negative for injury, pain, and swelling, Cardiovascular: Negative for chest pain, palpitations, and edema, Respiratory: Negative for shortness of breath, cough, wheezing, and pleuritic chest pain, Abdomen/GI: Negative for abdominal pain, nausea, vomiting, diarrhea, and constipation, Back: Negative for injury and pain, Skin: Negative for injury, rash, and discoloration, Neuro: Negative for headache, weakness, numbness, tingling, and seizure. 11:20 ENT: Positive for sore throat, Negative for ear pain, nasal discharge, sinus congestion. 11:20 All other systems are negative. Exam: 11:20 Constitutional: This is a well developed, well nourished patient who is awake, alert, jh7 and in no acute distress. Head/Face: Normocephalic, atraumatic. Eyes: Pupils equal round and reactive to light, extra-ocular motions intact. Lids and lashes normal. Conjunctiva and sclera are non-icteric and not injected. Cornea within normal limits. Periorbital areas with no swelling, redness, or edema. Cardiovascular: Regular rate and rhythm with a normal S1 and S2. No gallops, murmurs, or rubs. Normal PMI, no JVD. No pulse deficits. Respiratory: Lungs have equal breath sounds bilaterally, clear to auscultation and percussion. No rales, rhonchi or wheezes noted. No increased work of breathing, no retractions or nasal flaring. Abdomen/GI: Soft, non-tender, with normal bowel sounds. No distension or tympany. No guarding or rebound. No evidence of tenderness throughout. Back: No spinal tenderness. No costovertebral tenderness. Full range of motion. Skin: Warm, dry with normal turgor. Normal color with no rashes, no lesions, and no evidence of cellulitis. MS/ Extremity: Pulses equal, no cyanosis. Neurovascular intact. Full, normal range of motion. Neuro: Awake and alert, GCS 15, oriented to person, place, time, and situation. Motor strength 5/5 in all extremities. Sensory grossly intact. Normal gait. 11:20 ENT: Posterior pharynx: Tonsils: with erythema, no enlargement, Uvula: normal, midline, erythema, that is mild. Vital Signs: 11:17 BP 145 / 74; Pulse 92; Resp 18; Temp 97.7; Pulse Ox 100% on R/A; Weight 99.79 kg; ph Height 5 ft. 5 in. (165.10 cm); 11:17 Body Mass Index 36.61 (99.79 kg, 165.10 cm) ph MDM: 11:18 Patient medically screened. [facility] 15:10 Data reviewed: vital signs, nurses notes, lab test result(s). Data interpreted: Pulse [facility] oximetry: is 100 %. Interpretation: normal. Counseling: I had a detailed discussion with the patient and/or guardian regarding: the historical points, exam findings, and any diagnostic results supporting the discharge/admit diagnosis, to return to the emergency department if symptoms worsen or persist or if there are any questions or concerns that arise at home. 07/20 11:13 Order name: Strep; Complete Time: 12:24 [facility] 07/20 11:13 Order name: COVID-19 SARS RT PCR (Document "Date of Onset" if Symptomatic); Complete [facility] Time: 15:07 07/20 12:20 Order name: Throat Culture EDWY Administered Medications: 12:44 Drug: Decadron (dexamethasone) 10 mg Route: IM; Site: left deltoid; ph Disposition: 18:40 STAFF ATTESTATION STATEMENT: I was immediately available onsite in the emergency sd2 department for consultation in the care of this patient. I did not see or examine this patient. Elyssa Rosenbaum MD. Disposition Summary: 07/20/22 12:30 Discharge Ordered Location: Home [facility] Problem: new [facility] Symptoms: are unchanged [facility] Condition: Stable [facility] Diagnosis - Acute pharyngitis, unspecified [facility] Followup: [facility] - With: Private Physician - When: 2 - 3 days - Reason: Recheck today's complaints Discharge Instructions: - Discharge Summary Sheet [facility] - Pharyngitis [facility] - Sore Throat [facility] Forms: - Medication Reconciliation Form [facility] - Thank You Letter [facility] - Antibiotic Education [facility] Prescriptions: - Clindamycin HCl 300 mg Oral Capsule - take 1 capsule by ORAL route 3 times per day for 7 days; 21 capsule; Refills: [facility] 0, Product Selection Permitted Signatures: Dispatcher [employer] Jodi Roche RN RN Xin Foley, SHREDDER OPERATOR SHREDDER OPERATOR [facility] Elyssa Rosenbaum MD MD ar2
[2022-07-20] MEDS ORDERED: dexAMETHasone 10 MG/ML VIAL ONE (12:46)
[2022-07-20] MEDS ORDERED: NA CHLORIDE 0.9% 1,000 ML ONE (12:55)
[2022-07-20] MEDS ORDERED: ONDANSETRON 4 MG/2 ML VIAL ONE (12:55)
[2022-07-21 16:50] VITALS: BP 145/74; TEMP 97.7; O2SAT 100
== END 2022-07-20 12:44 | disposition home or self-care (01) ==
LOC: ER 10:58
DX: J02.9 Acute pharyngitis, unspecified (principal); Z20.822 Contact with and (suspected) exposure to COVID-19; Z88.0 Allergy status to penicillin; Z88.1 Allergy status to other antibiotic agents; Z91.040 Latex allergy status; Z91.048 Other nonmedicinal substance allergy status
CPT/HCPCS: 87070; 87081; 96372; 99282; U0003; J1100; J7030; J2405

== ENCOUNTER 2022-07-31 08:41 | Emergency (ER) | payer OTHER ==
--- OUTSIDE RECORDS SUMMARY | 2022-07-31 08:47 | XMS REPORT | Continuity of Care Document ---
:1990 Author Organization [facility] t Address [address] [place] [address] Care Team Providers Name Role Phone Pcp, [...] ANJALI MERIDA Attending Clinician Unavailable Doctor Unassigned, [place] Attending Clinician Unavailable Jose David Valle MD [...] ity of 00:00: g of this [place] note Medical might be Branch different from the original. 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 1 hr- 47 Immune to Immune to Disease Active Uni vers varicella varicella 07-05 ity of 00:00: [place] 00 Medical Branch High-risk High-risk Disease Active Overview: Univers 06-30 Formattin i ty of 00:00: g of this [place] 00 note Medical might be Branch different from the original. Medical records received. [facility] [place]. DOS- 0. CC: 30 weeks w/ twins, vomiting black liquid. No evidence of hepatitis , pancreati tis, or liver dysfuncti on. Physiolog ic anemia. No UTI or ketonuria . 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 Send to [facility] at 16 weeks Pain Pain Disease [...] ers POLLEN INGREDI 1-31 ity of 00:00: [place] [address] Medical Branch Bee Propensi Active Unknown - Unive rs Pollen ty to See comments 12-01 ity of adverse 00:00: [place] reaction 00 Medical s Branch Social History Social Habit Start Date Stop Date Quantity Comments Source Alcohol intake 2022-05-10 2022-05-10 Current University 00:00:00 00:00:00 non-drinker of [facility] alcohol [place] (finding) Exposure to 2022-04-29 2022-05-09 Not sure [facility] SARS-CoV-2 00:00:00 21:36:00 [facility] (event) Branch Tobacco use and 2013-06-30 2013-06-30 Never used Universit y of exposure 00:00:00 00:00:00 [facility] Sex Ass[birth year] At [birth year] Universit y of 00:00:00 00:00:00 [facility] Smoking Status Start Date Stop Date Source Never smoker [facility] Medications Ordered Filled Start Stop Current Ordering Indication Dosage Frequency Signature Comments Components Source Medication Medication Date Date Medication? Clinician (SIG) Name Name dicyclomine No 20mg 20 mg, Uni vers (BENTYL) 05-10 Intramuscu ity of injection 04:15: 03:38 lar, ONCE, [place] 20 mg 00 :00 1 dose, On Medical 05/09/22 Branch at 2315, Routine dicyclomine Yes [id number] 20mg Take 1 Univers 20 mg -10 tablet by ity of tablet 00:00: mouth 4 [place] 00 (four) Medical times Branch daily as needed for Abdominal pain. ferrous 2021- No 1{tbl} Take 1 Unive rs sulfate/vit 05-09 tablet by it y of C/folic ac 23:56: 00:00 mouth [place] (FERROUS 54 :00 daily. Medical SULFATE-C-F Branch OLIC ACID ORAL) dicyclomine 2021- No [id number] 20mg Take 1 Univers 20 mg 05-09 tablet by ity of tablet 00:00: 00:00 mouth 4 [place] 00 :00 (four) Medical times [place] daily as needed for Abdominal pain. clarithromy Yes [id number] 500mg Take 1 Univers dominique 500 mg 2-23 tablet by ity of tablet 00:00: mouth [place] 00 every 12 Medical (twelve) Branch hours. pantoprazol Yes [id number] 40mg Take 1 Univers e 40 mg EC 2-23 tablet by ity of tablet 00:00: mouth [place] 00 daily. Medical Branch pantoprazol Yes [id number] 40mg Take 1 Univers e 40 mg EC 2-23 tablet by ity of tablet 00:00: mouth [place] 00 daily. Medical Branch clarithromy 2021- No [id number] 500mg Take 1 Univers dominique 500 mg 2-23 -09 tablet by ity of tablet 00:00: 00:00 mouth [place] 00 :00 every 12 Medical (twelve) Branch hours. sucralfate 2021- No [id number] 1g Take 1 Univers 1 gram 2-23 - tablet by ity of tablet 00:00: 04:59 mouth [place] 00 :00 before Medical meals and Branch at bedtime for 30 days. metroNIDAZO 2021- No [id number] 500mg Take 1 Univers LE 500 mg 2-23 -10 tablet by ity of tablet 00:00: 05:59 mouth [place] 00 :00 every 8 Medical (eight) Branch hours for 14 days. sucralfate 2021- No [id number] 1g Take 1 Univers 1 gram 2-23 - tablet by ity of tablet 00:00: 00:00 mouth [place] 00 :00 before Medical meals and Branch at bedtime. maalox:diph 2021- No 15mL 15 mL, Uni vers enhydrAMINE 2 02- Oral, ity of :lidocaine 21:30: 20:30 ONCE, 1 [place] as 2 % viscous 00 :00 dose, On Medi denzel 1:1:1 12/08/21 Branch ([facility] at 1530, [facility]) Routine oral suspension 15 mL sucralfate Yes [id number] 1g Take 1 U nivers 1 gram 2-07 tablet by ity of tablet 00:00: mouth [place] 00 before Medical meals and Branch at bedtime. dicyclomine Yes [id number] 10mg Take 1 Univers (BENTYL) 10 2-07 capsule by it y of mg capsule 00:00: mouth [place] 00 every 8 Medical (eight) Branch hours as needed for Abdominal pain. ondansetron Yes [id number] 4mg Take 1 Univers 4 mg 2-07 tablet by ity of disintegrat 00:00: mouth [place] ing tablet 00 every 8 Medica l (eight) Branch hours as needed for Nausea and Vomiting (N/V). dicyclomine Yes [id number] 10mg Take 1 Univers (BENTYL) 10 2-07 capsule by it y of mg capsule 00:00: mouth [place] 00 every 8 Medical (eight) Branch hours as needed for Abdominal pain. ondansetron Yes [id number] 4mg Take 1 Univers 4 mg 2-07 tablet by ity of disintegrat 00:00: mouth [place] ing tablet 00 every 8 Medica l (eight) Branch hours as needed for Nausea and Vomiting (N/V). ondansetron Yes [id number] 4mg Take 1 Univers 4 mg 2-07 tablet by ity of disintegrat 00:00: mouth [place] ing tablet 00 every 8 Medica l (eight) Branch hours as needed for Nausea and Vomiting (N/V). dicyclomine 2021- No [id number] 10mg Take 1 Univers (BENTYL) 10 2-05 07-09 capsule by i ty of mg capsule 00:00: 00:00 mouth [place] 00 :00 every 8 Medical (eight) Branch hours as needed for Abdominal pain. omeprazole 2021- No [id number] 20mg Take 1 Univers 20 mg 2-10 capsule by ity of capsule 00:00: 05:59 mouth [place] 00 :00 daily for Medical 30 days. Branch omeprazole 2021- No [id number] 20mg Take 1 Univers 20 mg 2- 03-10 capsule by ity of capsule 00:00: 05:59 mouth [place] 00 :00 daily for Medical 30 days. Branch sucralfate 2021- No [id number] 1g Take 1 Univers 1 gram 2-05 02- tablet by ity of tablet 00:00: 00:00 mouth [place] 00 :00 before Medical meals and Branch at bedtime. bismuth-met 2021- No [id number] 3{capsu Take 3 Univers ronidazole- 2-07 - le} capsules ity of tetracyclin 00:00: 05:59 by mouth [place] e 00 :00 before Medical 140-125-125 meals and Bra nch mg per at bedtime capsule for 14 days. pantoprazol 2020-11 Yes [id number] 40mg Take 1 Univers e 2-13 tablet by ity of (PROTONIX) 00:00: mouth [place] 40 mg EC 00 daily. Medical tablet Branch pantoprazol 2020-11 Yes [id number] 40mg Take 1 Univers e 2-13 tablet by ity of (PROTONIX) 00:00: mouth [place] 40 mg EC 00 daily. Medical tablet Branch pantoprazol 2020-11- No [id number] 40mg Take 1 Univers e 2-13 - tablet by ity of (PROTONIX) 00:00: 00:00 mouth [place] 40 mg EC 00 :00 daily. Medical tablet Branch sucralfate 2020-11- No [id number] 1g Take 1 Univers 1 gram 2-13 -13 tablet by ity of tablet 00:00: 05:59 mouth [place] 00 :00 before Medical meals and Branch at bedtime for 30 days. dicyclomine 2020-11 Yes 10mg 10 mg, Univ ers (BENTYL) 11-23 Oral, QID, ity o f capsule 10 18:00: First dose [place] mg 00 on [facility] 09/23/21 Branch at 1200, Until Discontinu ed, Routine sucralfate 2020-11 Yes 1g 1 g, Oral, U nivers (CARAFATE) 11-23 AC+HS, ity of tablet 1 g 17:30: First dose [place] 00 on [facility] 09/23/21 Branch at 1130, Until Discontinu ed, Routine pantoprazol 2020-11- No 40mg 40 mg, Uni vers e 11-23 Slow IV ity of (PROTONIX) 15:45: 15:00 Push, [place] injection 00 :00 ONCE, 1 Medical 40 mg dose, On Branch [facility] 09/23/21 at 0945 dicyclomine 2020-11 Yes [id number] 10mg Take 1 Univers (BENTYL) 10 11-23 capsule by it y of mg capsule 00:00: mouth [place] 00 every 8 Medical (eight) Branch hours as needed for Abdominal pain. ondansetron 2020-11 Yes [id number] 4mg Take 1 Univers 4 mg 1-23 tablet by ity of disintegrat 00:00: mouth [place] ing tablet 00 every 8 Medica l (eight) Branch hours as needed for Nausea and Vomiting (N/V). sucralfate 2020-11 Yes [id number] 1g Take 1 U nivers 1 gram 1-23 tablet by ity of tablet 00:00: mouth [place] 00 before Medical meals and Branch at bedtime. dicyclomine 2020-11 Yes [id number] 10mg Take 1 Univers (BENTYL) 10 -23 capsule by it y of mg capsule 00:00: mouth [place] 00 every 8 Medical (eight) Branch hours as needed for Abdominal pain. ondansetron 2020-11 Yes [id number] 4mg Take 1 Univers 4 mg 1-23 tablet by ity of disintegrat 00:00: mouth [place] ing tablet 00 every 8 Medica l (eight) Branch hours as needed for Nausea and Vomiting (N/V). pantoprazol 2020-11 Yes [id number] 40mg Take 1 Univers e 1-23 tablet by ity of (PROTONIX) 00:00: mouth [place] 40 mg EC 00 daily. Medical tablet Branch dicyclomine 2020-11- No [id number] 10mg Take 1 Univers (BENTYL) 10 1-23 02-07 capsule by i ty of mg capsule 00:00: 00:00 mouth [place] 00 :00 every 8 Medical (eight) Branch hours as needed for Abdominal pain. ondansetron 2020-11- No [id number] 4mg Take 1 Univers 4 mg 1-23 02-07 tablet by ity of disintegrat 00:00: 00:00 [place] ing tablet 00 :00 every 8 Medica l (eight) Branch hours as needed for Nausea and Vomiting (N/V). sucralfate 2020-11- No [id number] 1g Take 1 Univers 1 gram 1-23 12-13 tablet by ity of tablet 00:00: 00:00 mouth [place] 00 :00 before Medical meals and Branch at bedtime. pantoprazol 2020-11- No [id number] 40mg Take 1 Univers e 1-23 12-13 tablet by ity of (PROTONIX) 00:00: 00:00 mouth [place] 40 mg EC 00 :00 daily. Medical tablet Branch ciprofloxac Yes [id number] 500mg Take 1 Univers in HCl 500 1-25 tablet by ity of mg tablet 00:00: mouth 2 [place] 00 (two) Medical times Branch daily. ciprofloxac 2020- No [id number] 500mg Take 1 Univers in HCl 500 1-25 12-13 tablet by ity of mg tablet 00:00: 00:00 mouth 2 [place] 00 :00 (two) Medical times Branch daily. ondansetron 2020- No [id number] 4mg Take 1 Univers (ZOFRAN 1-25 -23 tablet by ity of ODT) 4 mg 00:00: 00:00 mouth [place] disintegrat 00 :00 every 8 Medic al ing tablet (eight) Branch hours as needed for Nausea and Vomiting (N/V). cyclobenzap 2019-11 Yes [id number] 10mg Take 1 Univers rine 10 mg 1-11 tablet by ity of tablet 00:00: mouth 3 00 (three) Medical times Branch daily. cyclobenzap 2019-11 Yes [id number] 10mg Take 1 Univers rine 10 mg 1-11 tablet by ity of tablet 00:00: mouth 3 (three) Medical times Branch daily. cyclobenzap 2019-11 Yes [id number] 10mg Take 1 Univers rine 10 mg 1-11 tablet by ity of tablet 00:00: mouth 3 00 (three) Medical times Branch daily. cyclobenzap 2019-11 Yes [id number] 10mg Take 1 Univers rine 10 mg 1-11 tablet by ity of tablet 00:00: mouth 3 00 (three) Medical times Branch daily. ibuprofen 2019-11 Yes [id number] 600mg Take 1 Univers 600 mg 1-11 tablet by ity of tablet 00:00: mouth [place] 00 every 6 Medical (six) Branch hours as needed for Pain (scale 4-6). cyclobenzap 2019-11 Yes [id number] 10mg Take 1 Univers rine 10 mg 1-11 tablet by ity of tablet 00:00: mouth 3 00 (three) Medical times Branch daily. ibuprofen 2019-11- No [id number] 600mg Take 1 Univers 600 mg 1-11 [...] Branch OLIC ACID ORAL) bromphenira 2020-0 Yes [id number] 5mL Take 5 mL Univers mine-pseudo 4-04 by mouth 4 it y of ephedrine-D 00:00: (four) [place] M (BROMFED 00 times Medical DM) 2-30-10 daily as Bran ch mg/5 mL needed for syrup Congestion /Allergies or Cough. bromphenira 2020-0 Yes [id number] 5mL Take 5 mL Univers mine-pseudo 4-04 by mouth 4 it y of ephedrine-D 00:00: (four[place] M (BROMFED 00 times Medical DM) 2-30-10 daily as Bran ch mg/5 mL needed for syrup Congestion /Allergies or Cough. bromphenira 2020-0 Yes [id number] 5mL Take 5 mL Univers mine-pseudo 4-04 by mouth 4 it y of ephedrine-D 00:00: (four) [place] M (BROMFED 00 times Medical DM) 2-30-10 daily as Bran ch mg/5 mL needed for syrup Congestion /Allergies or Cough. methylPREDN 2020-0 Yes [id number] Take by Univers ISolone 4 4-04 mouth ity of mg tablets 00:00: SEE-INSTRU [place] 00 CTIONS. Medical follow Branch package directions levoFLOXaci 2020-0 Yes [id number] 500mg Take 1 Univers n 4-04 tablet by ity of (LEVAQUIN) 00:00: mouth [place] 500 mg 00 every 24 Medical tablet (twenty-fo Branch ur) hours. bromphenira 2020-0 Yes [id number] 5mL Take 5 mL Univers mine-pseudo 4-04 by mouth 4 it y of ephedrine-D 00:00: (four) [place] M (BROMFED 00 times Medical DM) 2-30-10 daily as Bran ch mg/5 mL needed for syrup Congestion /Allergies or Cough. bromphenira 2020-0 2021- No [id number] 5mL Take 5 mL Univers mine-pseudo 4-04 07-09 by mouth 4 i ty of ephedrine-D 00:00: 00:00 (four) [place] as M (BROMFED 00 :00 times Medical DM) 2-30-10 daily as Bran ch mg/5 mL needed for syrup Congestion /Allergies or Cough. methylPREDN 2019-0 2020- No [id number] Take by Univers ISolone 4 4-04 12-13 mouth ity of mg tablets 00:00: 00:00 SEE-INSTRU [place] 00 :00 CTIONS. Medical follow Branch package directions levoFLOXaci 2020-0 2020- No [id number] 500mg Take 1 Univers n 4-04 12-13 tablet by ity of (LEVAQUIN) 00:00: 00:00 mouth [place] 500 mg 00 :00 every 24 Medical tablet (twenty-fo Branch ur) hours. Immunizations Ordered Filled Immunization Date Status Comments [facility] e Immunization Name Name Td 2016-04-30 Completed University of 00:00:00 [facility] Td 2016-04-30 Completed University of 00:00:00 [facility] Td 2016-04-30 Completed University of 00:00:00 [facility] Td 2016-04-30 Completed University of 00:00:00 [facility] Td 2016-04-30 Completed University of 00:00:00 [facility] Rubella 2010-04-22 Completed University of 00:00:00 [facility] Rubella 2010-04-22 Completed University of 00:00:00 [facility] Rubella 2010-04-22 Completed University of 00:00:00 [facility] Branch Rubella 2010-04-22 Completed University of 00:00:00 [place] [facility] Rubella 2010-04-22 Completed University of 00:00:00 [place] [facility] Td 2006-06-30 Completed University of 00:00:00 [place] [facility] Td 2006-06-30 Completed University of 00:00:00 [place] [facility] Td 2006-06-30 Completed University of 00:00:00 [place] [facility] Td 2006-06-30 Completed University of 00:00:00 [place] [facility] Td 2006-06-30 Completed University of 00:00:00 [facility] Branch Vital Signs Vital Name Observation Time Observation Value Comments Source Systolic blood 2022-05-10 05:14:00 125 mm[Hg] Univer sity of pressure [facility] Diastolic blood 2022-05-10 05:14:00 81 mm[Hg] Unive rsity of [facility] Heart rate 2022-05-10 05:14:00 62 /min [facility] Respiratory rate 2022-05-10 05:14:00 17 /min [facility] Oxygen saturation in 2022-05-10 05:14:00 99 /min [facility] Arterial blood by [facility] Pulse oximetry [place] Body temperature 2022-05-10 02:44:00 36.44 [place] [facility] Body height 2022-05-10 02:44:00 167.6 cm [facility] Body weight 2022-05-10 02:44:00 103.828 kg [facility] BMI 2022-05-10 02:44:00 36.95 kg/m2 [facility] Systolic blood 2021-12-24 17:26:00 147 mm[Hg] Univer sity of pressure [facility] Diastolic blood 2021-12-24 17:26:00 80 mm[Hg] Unive rsity of pressure [facility] Heart rate 2021-12-24 17:26:00 71 /min [facility] Body temperature 2021-12-24 17:26:00 36.17 [place] [facility] 2021-12-24 17:26:00 18 /min [facility] Body weight 2021-12-24 17:26:00 86.183 kg Universi ty of [place] [facility] BMI 2021-12-24 17:26:00 29.76 kg/m2 Universi ty of [place] [facility] Oxygen saturation in 2021-12-24 17:26:00 99 /min University of Arterial blood by [place] Medi denzel Pulse oximetry Branch Systolic blood 2021-12-08 18:45:00 131 mm[Hg] Univer sity of pressure [place] [facility] Diastolic blood 2021-12-08 18:45:00 91 mm[Hg] Unive rsity of pressure [place] [facility] Heart rate 2021-12-08 18:45:00 86 /min Universi ty of [place] [facility] Body temperature 2021-12-08 18:45:00 36.72 [place] Univ ersity of [place] [facility] Respiratory rate 2021-12-08 18:45:00 18 /min Univ ersity of [place] [facility] Body weight 2021-12-08 18:45:00 86.183 kg Universi ty of [place] [facility] BMI 2021-12-08 18:45:00 29.76 kg/m2 Universi ty of [place] [facility] Oxygen saturation in 2021-12-08 18:45:00 98 /min University of Arterial blood by [facility] Pulse oximetry Branch Systolic blood 2021-10-13 13:42:00 123 mm[Hg] Univer sity of pressure [place] [facility] Diastolic blood 2021-10-13 13:42:00 78 mm[Hg] Unive rsity of pressure [place] [facility] Heart rate 2021-10-13 13:42:00 86 /min Universi ty of [place] [facility] Body temperature 2021-10-13 13:42:00 36.78 [place] Univ ersity of [place] [facility] Respiratory rate 2021-10-13 13:42:00 18 /min Univ ersity of [place] [facility] Body weight 2021-10-13 13:42:00 86.183 kg Universi ty of [place] [facility] BMI 2021-10-13 13:42:00 29.76 kg/m2 Universi ty of [place] [facility] Oxygen saturation in 2021-10-13 13:42:00 98 /min University of Arterial blood by [facility] denzel Pulse oximetry Branch Systolic blood 2021-09-23 16:00:00 128 mm[Hg] Univer sity of pressure [place] [facility] Diastolic blood 2021-09-23 16:00:00 79 mm[Hg] [facility] of pressure [facility] Heart rate 2021-09-23 16:00:00 79 /min [facility] Body temperature 2021-09-23 16:00:00 36.72 [place] [facility] Oxygen saturation in 2021-09-23 16:00:00 100 /min [facility] Arterial blood by [facility] Pulse oximetry Branch Respiratory rate 2021-09-23 14:25:00 18 /min [facility] Body height 2021-09-23 14:25:00 170.2 cm [facility] Body weight 2021-09-23 14:25:00 86.183 kg [facility] BMI 2021-09-23 14:25:00 29.76 kg/m2 [facility] Procedures Procedure Date / Time Performed Performing Clinician Sourc e LIPASE 2022-05-10 03:37:00 Farzaneh Bo [facility] COMP. METABOLIC PANEL 2022-05-10 03:37:00 Farzaneh Bo [facility] ([id number]) [facility] CBC WITH DIFF 2022-05-10 03:37:00 Farzaneh Bo [facility] POCT TEST 2022-05-10 02:49:00 Farzaneh Bo [facility] URINALYSIS 2022-05-10 02:48:00 Farzaneh Bo [facility] NOTICE OF PRIVACY 2022-05-10 02:33:25 Doctor Unassigned, No [facility] CONSENT/REFUSAL FOR 2022-05-10 02:31:34 Doctor Unassigned, No Un iversity of [place] DIAGNOSIS AND Name Medical Branch TREATMENT CONSENT/REFUSAL FOR 2021-12-24 17:15:06 Doctor Unassigned, No Un iversity of [place] DIAGNOSIS AND Name Medical Branch TREATMENT NOTICE OF PRIVACY 2021-12-08 18:35:32 Doctor [facility]assigned, No [facility] Branch CONSENT/REFUSAL FOR 2021-12-08 18:35:08 Doctor Unassigned, No Un iversity of [place] DIAGNOSIS AND Name Medical Branch TREATMENT ASSIGNMENT OF BENEFITS 2021-10-13 13:51:35 Doctor Unassigned, No [facility] Name Medical Branch CONSENT/REFUSAL FOR 2021-10-13 13:36:21 [facility]assigned, No [facility] Name Medical Branch TREATMENT COMP. METABOLIC PANEL 2021-09-23 15:35:00 [facility]ridhar [facility] ([id number]) Medical Branch LIPASE 2021-09-23 14:59:00 Singer [facility] CBC WITH DIFF 2021-09-23 14:59:00 Mata, [facility] CONSENT/REFUSAL FOR 2021-09-23 14:17:56 Doctor Unassigned, No [facility] AND Name Medical Branch TREATMENT Encounters Start End Encounter Admission Attending Care Care Encounter Source Date/Time Date/Time Type Type Clinicians Facility Department ID 2022-05-09 2022-05-10 [facility] [id number] Univers 21:49:00 00:20:00 FARZANEH busby [facility] 2022-05-09 2022-05-10 Emergency [facility] [id number] Univers 21:49:00 00:20:00 Farzaneh OWENS [id number] itkamari [facility] [id number] [facility] [id number] [address] 2021-12-24 2021-12-24 Emergency [facility] [id number] Univers 11:28:00 13:33:00 JAYY busby [facility] 2021-12-24 2021-12-24 Emergency [facility] [id number] Univers 11:28:00 13:33:00 Jayy [place] [id number] i asael [facility] [id number] [facility] [id number] [address] 2021-12-08 2021-12-[address] [facility] ERT [id number] Univers 12:45:00 14:51:00 SRIDHAR kamari [facility] 2021-12-08 2021-12-08 Emergency [facility] [id number] Univers 12:45:00 14:51:00 Sridhar OWENS [id number] i ty of [place] [id number] [facility] [id number] [address] 2021-10-13 2021-10-13 Emergency [facility] [id number] Univers 07:44:00 07:58:00 LATHA itkamari [facility] 2021-10-13 2021-10-13 Emergency [facility] [id number] Univers 07:44:00 07:58:00 Latha [place] [id number] ity [facility] [id number] [place] [id number] 2021-09-23 2021-09-23 Emergency X [facility] ERT [id number] Univers 08:30:00 10:37:00 [facility] 2021-09-23 2021-09-23 [facility] [id number] Univers 08:30:00 10:37:00 Sridhar OWENS [id number] i ty of [place] 4.2.7.[address] [place] [address] [id number] 2020-11-25 2020-11-25 Emergency Kyra Medeiros [facility] [id number] 15:24:00 20:37:00 Nat Owens [id number] [place] [id number] [place] [address] [id number] [facility] 2020-11-25 2020-11-25 Emergency X [facility] ERT [id number] Univers 15:14:00 15:14:00 ity [facility] 2020-10-31 2020-10-31 Emergency Jack Brower [facility] [id number] 09:18:00 12:22:00 Gaby Owens [id number] [place] [id number] [place] [address] [id number] 082020-10-31 2020-10-31 Emergency X JACK BROWER [facility] ERT [id number] Univers 09:18:00 09:18:00 ity of [facility] 2020-09-11 2020-09-11 Emergency Kyra Medeiros [facility] [id number] 14:32:00 16:08:00 Nat [place] [id number] [place] [id number] [place] [id number] 2020-09-11 2020-09-11 Emergency X Kyra MEDEIROS [facility] ERT [id number] Univers 14:32:00 14:32:00 ity of [facility] 2020-02-03 2020-02-03 Emergency Fuad [facility] [id number] 17:08:08 18:20:00 Anjali [place] [id number] [place] [id number] [place] [id number] 2020-02-03 2020-02-03 Emergency X FUAD [facility] ERT [id number] Univers 17:00:00 17:00:00 ANJALI ity [facility] [facility] 2020-02-03 2020-02-03 Orders Doctor DAVID [id number] 00:00:00 00:00:00 Only Unassigned, ANGIE 350.1.13.10 [place] [facility] 4.2.7.2.686 [id number] [id number] 2020-01-10 2020-01-11 Emergency [facility] [id number] 23:46:02 01:01:00 [place] 350.1.13.10 [place] 4.2.7.2.686 [place] [id number] 2020-01-10 2020-01-10 Emergency X [facility] ERT [id number] Univers 23:02:00 23:02:00 [facility] 2019-12-18 2019-12-18 Emergency X Kyra MEDEIROS [facility] ERT [id number] [facility] 17:24:37 18:57:00 [facility] 2019-12-18 2019-12-18 Emergency Kyra Medeiros [facility] [id number] 17:24:37 18:57:00 Nat Owens 350.1.13.10 [place] 4.2.7.2.686 [place] [id number] 2019-12-18 2019-12-18 Orders Doctor DAVID [id number] 00:00:00 00:00:00 Only Unassigned, ANGIE 350.1.13.10 [place] 4.2.7.2.686 [id number] 2019-06-29 2019-06-29 Emergency Jayes, [facility] [id number] 02:13:29 04:06:00 Jose David Owens 350.1.13.10 [place] 4.2.7.2.686 [place] [id number] Results Test Description Test Time Test Comments Results Result Comments Source COMP. METABOLIC PANEL ([id number]) 2022-05-10 04:28:49 Test Item Value Reference Range Interpretation Comme nts NA (test code = 5198282961) 138 mmol/L 135-145 K (test code = 0574151899) 4.2 mmol/L 3.5-5.0 CL (test code = 7212430216) 104 mmol/L 98-108 CO2 TOTAL (test code = 25 mmol/L 23-31 1100818113) AGAP (test code = 0876406385) 2-16 BUN (test code = 8766829851) 9 mg/dL 7-23 GLUCOSE (test code = 6287029973) 103 mg/dL 70-110 CREATININE (test code = 0.78 mg/dL 0.50-1.04 3172492217) TOTAL BILI (test code = 0.3 mg/dL 0.1-1.6 4800621455) CALCIUM (test code = 9498284286) 9.4 mg/dL 8.6-10.6 T PROTEIN (test code = 7.1 g/dL 6.3-8.2 8608322345) ALBUMIN (test code = 2575589307) 4.4 g/dL 3.5-5.0 ALK PHOS (test code = 5339794481) 55 U/L 34-122 ALTv (test code = 1742-6) 25 U/L 5-35 AST(SGOT) (test code = 23 U/L 13-40 9150121005) eGFR (test code = 1069941787) mL/min/1.73m2 JASMYN (test code = JASMYN) Association [...] abnormalities in imaging tests). [facility] Test Item Value Reference Range Interpretation Comments LIPASE (test code = 8452964591) 58 U/L 0-220 Lab Interpretation (test code = Normal 56947-2) [facility] [id number] 03:54:04 Test Item Value Reference Range Interpretation Comments WBC (test code = See_Comment [Automated 8794-2) message] The sy stem which generated this [...] RDW-SD (test code = 46.1 fL 39.0-49.9 27119-8) RDW-CV (test code = 16.5 % 12.0-15.5 H 788-0) PLT (test code = See_Comment H [Automated 777-3) message] The sy stem which generated this result transmitted reference range : 166 - 358 10*3/ ?L. The reference r juliano was not used to interpret this result as normal/abnormal . MPV (test code = 10.0 fL 9.5-12.9 64855-6) NRBC/100 WBC (test See_Comment [Automat ed code = 2968886144) message] The system which generated this result transmitted reference range : 0.0 - 10.0 /100 WBCs. The refer ence range was not u sed to interpret th is result as normal/abnormal . NRBC x10^3 (test code <0.01 See_Comment [Auto mated = 2866449659) message] The s ystem which generated this result transmitted reference range : 10*3/?L. The reference range was not used to interpret this result as normal/abnormal . GRAN MAT (NEUT) % 57.9 % (test code = 770-8) IMM GRAN % (test code 0.10 % = 5777226420) LYMPH % (test code = 31.1 % 736-9) MONO % (test code = 7.2 % 5905-5) EOS % (test code = 3.4 % 713-8) BASO % (test code = 0.3 % 706-2) GRAN MAT x10^3(ANC) 4.08 10*3/uL 1.88-7.09 (test code = 9902494930) IMM GRAN x10^3 (test <0.03 0.00-0.06 code = 1376425713) LYMPH x10^3 (test code 2.19 10*3/uL 1.32-3.29 = 731-0) MONO x10^3 (test code 0.51 10*3/uL 0.33-0.92 = 742-7) EOS x10^3 (test code = 0.24 10*3/uL 0.03-0.39 711-2) BASO x10^3 (test code <0.03 0.01-0.07 = 704-7) Lab Interpretation Abnormal (test code = 10633-2) [facility] [id number] 02:49:00 Test Item Value Reference Range Interpretation Comments POCT PREG (test code = 1605) Negative On board controls acceptable with Positive C Line (test code = 3574) POCT PREG LOT # (test code = HCG [id number] [id number]) POCT PREG TEST DATE (test 08/31/2023 code = 3576) Lab Interpretation (test code = Normal 21870-9) [facility] METABOLIC PANEL ([id number])2021-09-23 16:10:10 Test Item Value Reference Range Interpretation Comments NA (test code = 135 mmol/L 135-145 7240736884) K (test code = 4.5 mmol/L 3.5-5.0 6787066585) CL (test code = 101 mmol/L 98-108 4908056709) CO2 TOTAL (test code 28 mmol/L 23-31 = 3982490569) AGAP (test code = 2-16 0166013208) BUN (test code = 19 mg/dL 7-23 3109862491) GLUCOSE (test code = 94 mg/dL 70-110 3729644820) CREATININE (test code 0.83 mg/dL 0.50-1.04 = 3848427573) TOTAL BILI (test code 0.5 mg/dL 0.1-1.1 = 0782462716) CALCIUM (test code = 9.9 mg/dL 8.6-10.6 1464509995) T PROTEIN (test code 7.6 g/dL 6.3-8.2 = 9888663721) ALBUMIN (test code = 4.5 g/dL 3.5-5.0 9187931842) ALK PHOS (test code = 52 U/L 34-122 6000206339) ALTv (test code = 15 U/L 5-35 1742-6) AST(SGOT) (test code 21 U/L 13-40 = 8985672012) eGFR (test code = mL/min/1.73m2 5557949578) JASMYN (test code = JASMYN) Association of [...] abnormalities in imaging tests). [facility] 15:52:35 Test Item Value Reference Range Interpretation Comments LIPASE (test code = 6279271053) 72 U/L 0-220 Lab Interpretation (test code = Normal 58255-6) [facility] WITH [id number] 15:37:27 Test Item Value Reference Range Interpretation [...] RDW-SD (test code = 43.4 fL 39.0-49.9 10548-6) RDW-CV (test code = 14.0 % 12.0-15.5 788-0) PLT (test code = See_Comment H [Automated 777-3) message] The sy stem which generated this result transmitted reference range : 166 - 358 10*3/ ?L. The reference r juliano was not used to interpret this result as normal/abnormal . MPV (test code = 10.4 fL 9.5-12.9 60346-4) NRBC/100 WBC (test See_Comment [Automat ed code = 7130666489) message] The system which generated this result transmitted reference range : 0.0 - 10.0 /100 WBCs. The refer ence range was not u sed to interpret th is result as normal/abnormal . NRBC x10^3 (test code <0.01 See_Comment [Auto mated = 8450902808) message] The s ystem which generated this result transmitted reference range : 10*3/?L. The reference range was not used to interpret this result as normal/abnormal . GRAN MAT (NEUT) % 60.5 % (test code = 770-8) IMM GRAN % (test code 0.30 % = 8102154040) LYMPH % (test code = 28.4 % 736-9) MONO % (test code = 6.4 % 5905-5) EOS % (test code = 3.6 % 713-8) BASO % (test code = 0.8 % 706-2) GRAN MAT x10^3(ANC) 3.71 10*3/uL 1.88-7.09 (test code = 9520290459) IMM GRAN x10^3 (test <0.03 0.00-0.06 code = 5453914896) LYMPH x10^3 (test code 1.74 10*3/uL 1.32-3.29 = 731-0) MONO x10^3 (test code 0.39 10*3/uL 0.33-0.92 = 742-7) EOS x10^3 (test code = 0.22 10*3/uL 0.03-0.39 711-2) BASO x10^3 (test code 0.05 10*3/uL 0.01-0.07 = 704-7) Lab Interpretation Abnormal (test code = 20884-5) [facility]"
--- NOTE | 2022-07-31 09:30 | EDPHYS ---
Physician Documentation [facility] Name: Genesis Hu Age: 32 yrs Sex: Female : 1990 Arrival Date: 07/31/2022 Time: 08:43 Bed 16 Private MD: ED Physician Alverto Ferrer HPI: 07/31 08:58 This 32 yrs old Female presents to ER via Ambulatory with complaints of a jl9 persistent sore throat. Patient seen here last week for similar issue and given abx without relief, negative culture. . 08:58 The patient presents with sore throat. The patient describes throat pain as scratchy. jl9 Onset: The symptoms/episode began/occurred 1 week(s) ago. Severity of symptoms: in the emergency department the symptoms a " 4" out of "10". Modifying factors: The symptoms are alleviated by the symptoms are aggravated by fluids, foods, swallowing. Associated signs and symptoms: The patient has no apparent associated signs or symptoms. The patient has experienced a previous episode. 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 - Social history:: Smoking status: Patient denies any tobacco usage or history of. ROS: 08:57 Constitutional: Negative for fever, chills, and weight loss, Eyes: Negative for injury, jl9 pain, redness, and discharge. 08:57 Neck: Negative for injury, pain, and swelling, Cardiovascular: Negative for chest pain, palpitations, and edema, Respiratory: Negative for shortness of breath, cough, wheezing, and pleuritic chest pain, Abdomen/GI: Negative for abdominal pain, nausea, vomiting, diarrhea, and constipation, Back: Negative for injury and pain, : Negative for injury, bleeding, discharge, and swelling, MS/Extremity: Negative for injury and deformity, Skin: Negative for injury, rash, and discoloration, Neuro: Negative for headache, weakness, numbness, tingling, and seizure, Psych: Negative for depression, anxiety, suicide ideation, homicidal ideation, and hallucinations, Allergy/Immunology: Negative for hives, rash, and allergies, Endocrine: Negative for neck swelling, polydipsia, polyuria, polyphagia, and marked weight changes, Hematologic/Lymphatic: Negative for swollen nodes, abnormal bleeding, and unusual bruising. 08:57 ENT: Positive for sore throat. Exam: 09:26 Constitutional: This is a well developed, well nourished patient who is awake, alert, jl9 and in no acute distress. Head/Face: Normocephalic, atraumatic. Eyes: Pupils equal round and reactive to light, extra-ocular motions intact. Lids and lashes normal. Conjunctiva and sclera are non-icteric and not injected. Cornea within normal limits. Periorbital areas with no swelling, redness, or edema. 09:26 ENT: External ear(s): are unremarkable, Ear canal(s): are normal, TM's: are normal, Nose: is normal, Mouth: is normal, Posterior pharynx: Airway: normal, Tonsils: enlarged on the right, enlarged on the left, with erythema, 1 tiny approx 2mm cyst to left tonsil. No obvious exudates. . Vital Signs: 08:49 BP 118 / 87; Pulse 87; Resp 16; Temp 98.0(O); Pulse Ox 100% on R/A; Weight 98.43 kg; ss Height 5 ft. 5 in. (165.10 cm); Pain 6/10; 10:00 BP 118 / 69; Pulse 75; Resp 16; Pulse Ox 100% on R/A; kr3 08:49 Body Mass Index 36.11 (98.43 kg, 165.10 cm) ss MDM: 08:53 Patient medically screened. jl9 08:59 Data reviewed: vital signs, nurses notes. jl9 09:28 Counseling: I had a detailed discussion with the patient and/or guardian regarding: the jl9 historical points, exam findings, and any diagnostic results supporting the discharge/admit diagnosis, the need for outpatient follow up, an ENT specialist, to return to the emergency department if symptoms worsen or persist or if there are any questions or concerns that arise at home. Administered Medications: 10:00 Not Given (Patient Refused; has stomach ulcerss): Ibuprofen 600 mg PO once kr3 10:00 Drug: Tylenol 1000 mg Route: PO; kr3 10:19 Follow up: Response: No adverse reaction kr3 Disposition: 11:25 Co-signature as Attending Physician, Alverto Ferrer MD I agree with the assessment and kdr plan of care. Disposition Summary: 07/31/22 09:29 Discharge Ordered Location: Home jl9 Condition: Stable jl9 Diagnosis - Acute pharyngitis, unspecified jl9 Followup: jl9 - With: Clara Combs MD - When: 1 - 2 days - Reason: Recheck today's complaints, Continuance of care, Re-evaluation by your physician Discharge Instructions: - Discharge Summary Sheet jl9 - Pharyngitis jl9 Forms: - Medication Reconciliation Form jl9 - Thank You Letter jl9 - Work release form eb - Antibiotic Education jl9 - Prescription Opioid Use jl9 Prescriptions: - Prednisone 20 mg Oral Tablet - take 2 tablets by ORAL route once daily for 5 days; 10 tablet; Refills: 0, jl9 Product Selection Permitted Signatures: Alverto Ferrer MD MD kdr Teresa Flowers RN RN Clint Barrera jl9 Crystal Mariscal RN RN kr3 Corrections: (The following items were deleted from the chart) 09:26 08:58 This 32 yrs old Female presents to ER via Ambulatory with complaints of jl9 Sore Throat x1 week. Patient see here last week for same issue. . jl9
--- NOTE | 2022-07-31 09:30 | ER ---
Nurse's Notes [facility] Name: Genesis Hu Age: 32 yrs Sex: Female : 1990 Arrival Date: 07/31/2022 Time: 08:43 Bed 16 Private MD: Diagnosis: Acute pharyngitis, unspecified Presentation: 07/31 08:49 Chief complaint: Patient states: Sore throat that has been ongoing x 1 week. Pt was ss seen in ER and given RX for antibiotics, but reports no improvement and sees a possible cyst on her tonsil. Coronavirus screen: Client denies travel out of the [place] in the last 14 days. Ebola Screen: Patient denies exposure to infectious person. Patient denies travel to an Ebola-affected area in the 21 days before illness onset. Initial Sepsis Screen: Does the patient meet any 2 criteria? No. Patient's initial sepsis screen is negative. Does the patient have a suspected source of infection? No. Patient's initial sepsis screen is negative. Risk Assessment: Do you want to hurt yourself or someone else? Patient reports no desire to harm self or others. Onset of symptoms was July 24, 2022. 08:49 Method Of Arrival: Ambulatory ss 08:49 Acuity: KRISTIN 3 ss Triage Assessment: 10:16 General: Appears Behavior is calm, cooperative, appropriate for age. 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 - Social history:: Smoking status: Patient denies any tobacco usage or history of. Screenin:16 Abuse screen: Denies threats or abuse. Nutritional screening: No deficits noted. kr3 Tuberculosis screening: No symptoms or risk factors identified. Fall Risk None identified. Total Oliver Fall Scale indicates No Risk (0-24 pts). Assessment: 10:15 Reassessment: Patient states symptoms have improved. Pain: Denies pain. Respiratory: kr3 Airway is patent Respiratory effort is even, unlabored. EENT:. 10:17 Respiratory: Breath sounds are clear bilaterally. kr3 10:18 EENT: Throat is pink. kr3 Vital Signs: 08:49 BP 118 / 87; Pulse 87; Resp 16; Temp 98.0(O); Pulse Ox 100% on R/A; Weight 98.43 kg; Height 5 ft. 5 in. (165.10 cm); Pain 6/10; 10:00 BP 118 / 69; Pulse 75; Resp 16; Pulse Ox 100% on R/A; kr3 08:49 Body Mass Index 36.11 (98.43 kg, 165.10 cm) ED Course: 08:43 Patient arrived in ED. am2 08:44 Clint Canseco is PHCP. jl9 08:44 Alverto Ferrer MD is Attending Physician. jl9 08:50 Triage completed. ss 08:50 Arm band placed on right wrist. ss 09:29 Clara Combs MD is Referral Physician. jl9 09:36 Crystal Mariscal, IRENE is Primary Nurse. kr3 09:45 Bed in low position. Call light in reach. Side rails up X 1. kr3 10:17 No provider procedures requiring assistance completed. Patient did not have IV access kr3 during this emergency room visit. Administered Medications: 10:00 Not Given (Patient Refused; has stomach ulcerss): Ibuprofen 600 mg PO once kr3 10:00 Drug: Tylenol 1000 mg Route: PO; kr3 10:19 Follow up: Response: No adverse reaction kr3 Medication: 10:19 VIS not applicable for this client. kr3 Outcome: 09:29 Discharge ordered by . jl9 10:17 Discharged to home ambulatory. kr3 10:17 Condition: stable 10:17 Discharge instructions given to patient, Instructed on discharge instructions, follow up and referral plans. medication usage, Demonstrated understanding of instructions, follow-up care, medications, Prescriptions given X 1. 10:20 Patient left the ED. kr3 Signatures: Teresa Flowers RN RN Jill Lombardi am2 Clint Canseco jl9 Crystal Mariscal, IRENE RN kr3
[2022-07-31] MEDS ORDERED: IBUPROFEN 200 MG TAB PO ONE (09:38)
[2022-07-31] MEDS ORDERED: IBUPROFEN 400 MG TAB ONE (09:38)
[2022-07-31] MEDS ORDERED: ACETAMINOPHEN 500 MG TAB ONE (09:50)
[2022-08-01 01:56] VITALS: TEMP 98; O2SAT 100
[2022-08-01 01:57] VITALS: BP 118/69
== END 2022-07-31 10:20 | disposition home or self-care (01) ==
LOC: ER 08:41
DX: J02.9 Acute pharyngitis, unspecified (principal); Z88.0 Allergy status to penicillin; Z88.1 Allergy status to other antibiotic agents; Z91.040 Latex allergy status; Z91.048 Other nonmedicinal substance allergy status
CPT/HCPCS: 99283

== ENCOUNTER 2022-08-13 16:34 | Emergency (ER) | payer OTHER ==
--- OUTSIDE RECORDS SUMMARY | 2022-08-13 16:38 | XMS REPORT | Continuity of Care Document ---
:1990 Author Organization [facility] t Address Formerly [facility] [place] [address] Care Team Providers Name Role Phone Pcp, Patient Does Not Have A Primary Care Physician [id number] FARZANEH BO Attending Clinician Unavailable Farzaneh Bo NP Attending Clinician JAYY AARON Attending Clinician Unavailable Jayy Brandt Attending Clinician SRIDHAR MATA Attending Clinician Unavailable Sridhar Mata DO Attending Clinician LATHA WINSTON Attending Clinician Unavailable Latha Winston DO Attending Clinician Kyra Sweeney Attending Clinician aJck Brower MD Attending Clinician JACK BROWER Attending Clinician Unavailable Kyra MEDEIROS Attending Clinician Unavailable Anjali Merida PA-C Attending Clinician ANJALI MERIDA Attending Clinician Unavailable Doctor Unassigned, Veyo Attending Clinician Unavailable Jose David Valle MD Attending Clinician Payers Payer Name Policy Type Policy Number Effective Date Expiration Date S hanane MEDICAID PENDING PENDING 2021 00:00:00 Problems Condition Condition Condition Status Onset Resolution Last Treating Co mments Source Name Details Category Date Date Treatment Clinician Date Abdominal Abdominal Disease Active Overview: Univers pain pain 07-28 Formattin ity of 00:00: g of this [place] note Medical might be Branch different from the original. ICD10 Diagnosis Term Materials Assistant Utility Abnormal Abnormal Disease Active Overview: Un se glucose glucose 07-06 Formattin ity o f tolerance tolerance 00:00: g of this [place] test test 00 note Medical might be Branch different from the original. 1 hr- 47 Immune to Immune to Disease Active Uni vers varicella varicella 07-05 ity of 00:00: [place] 00 Medical Branch High-risk High-risk Disease Active Overview: Univers 06-30 Formattin i ty of 00:00: g of this [place] 00 note Medical might be Branch different from the original. Medical records received. [facility]. DOS- 0. CC: 30 weeks w/ twins, vomiting black liquid. No evidence of hepatitis , pancreati tis, or liver dysfuncti on. Physiolog ic anemia. No UTI or ketonuria . ICD10 Diagnosis Term Materials Assistant Utility History of History of Disease Active Overview : Univers 06-30 Formattin i ty of 00:00: g of this [place] note Medical might be Branch different from [...] of congenital congenital 00:00: g of this [place] anomalies anomalies 00 note Medi denzel might [...] via for PTL -Twins. Send to [facility] at 16 weeks Pain Pain Disease [...] ers POLLEN INGREDI 1-31 ity of 00:00: [place] [address] Medical Branch Bee Propensi Active Unknown - Unive rs Pollen ty to See comments 12-01 ity of adverse 00:00: [place] reaction 00 Medical s Branch Social History Social Habit Start Date Stop Date Quantity Comments Source Alcohol intake 2022-05-10 2022-05-10 Current University 00:00:00 00:00:00 non-drinker of [facility] alcohol [place] (finding) Exposure to 2022-04-29 2022-05-09 Not sure [facility] SARS-CoV-2 00:00:00 21:36:00 [facility] (event) Branch Tobacco use and 2013-06-30 2013-06-30 Never used Universit y of exposure 00:00:00 00:00:00 [facility] Sex Ass[birth year] At [birth year] Universit y of 00:00:00 00:00:00 [facility] Smoking Status Start Date Stop Date Source Never smoker [facility] Medications Ordered Filled Start Stop Current Ordering Indication Dosage Frequency Signature Comments Components Source Medication Medication Date Date Medication? Clinician (SIG) Name Name dicyclomine No 20mg 20 mg, Uni vers (BENTYL) 05-10 Intramuscu ity of injection 04:15: 03:38 lar, ONCE, [place] 20 mg 00 :00 1 dose, On Medical 05/09/22 Branch at 2315, Routine dicyclomine Yes [id number] 20mg Take 1 Univers 20 mg -10 tablet by ity of tablet 00:00: mouth 4 [place] 00 (four) Medical times Branch daily as needed for Abdominal pain. ferrous 2021- No 1{tbl} Take 1 Unive rs sulfate/vit 05-09 tablet by it y of C/folic ac 23:56: 00:00 mouth [place] (FERROUS 54 :00 daily. Medical SULFATE-C-F Branch OLIC ACID ORAL) dicyclomine 2021- No [id number] 20mg Take 1 Univers 20 mg 05-09 tablet by ity of tablet 00:00: 00:00 mouth 4 [place] 00 :00 (four) Medical times [place] daily as needed for Abdominal pain. clarithromy Yes [id number] 500mg Take 1 Univers dominique 500 mg 2-23 tablet by ity of tablet 00:00: mouth [place] 00 every 12 Medical (twelve) Branch hours. pantoprazol Yes [id number] 40mg Take 1 Univers e 40 mg EC 2-23 tablet by ity of tablet 00:00: mouth [place] 00 daily. Medical Branch pantoprazol Yes [id number] 40mg Take 1 Univers e 40 mg EC 2-23 tablet by ity of tablet 00:00: mouth [place] 00 daily. Medical Branch clarithromy 2021- No [id number] 500mg Take 1 Univers dominique 500 mg 2-23 -09 tablet by ity of tablet 00:00: 00:00 mouth [place] 00 :00 every 12 Medical (twelve) Branch hours. sucralfate 2021- No [id number] 1g Take 1 Univers 1 gram 2-23 - tablet by ity of tablet 00:00: 04:59 mouth [place] 00 :00 before Medical meals and Branch at bedtime for 30 days. metroNIDAZO 2021- No [id number] 500mg Take 1 Univers LE 500 mg 2-23 -10 tablet by ity of tablet 00:00: 05:59 mouth [place] 00 :00 every 8 Medical (eight) Branch hours for 14 days. sucralfate 2021- No [id number] 1g Take 1 Univers 1 gram 2-23 - tablet by ity of tablet 00:00: 00:00 mouth [place] 00 :00 before Medical meals and Branch at bedtime. maalox:diph 2021- No 15mL 15 mL, Uni vers enhydrAMINE 2 02- Oral, ity of :lidocaine 21:30: 20:30 ONCE, 1 [place] as 2 % viscous 00 :00 dose, On Medi denzel 1:1:1 12/08/21 Branch (FIRST-MOUT at 1530, [facility]) Routine oral suspension 15 mL sucralfate Yes [id number] 1g Take 1 U nivers 1 gram 2-07 tablet by ity of tablet 00:00: mouth [place] 00 before Medical meals and Branch at bedtime. dicyclomine Yes [id number] 10mg Take 1 Univers (BENTYL) 10 2-07 capsule by it y of mg capsule 00:00: mouth [place] 00 every 8 Medical (eight) Branch hours as needed for Abdominal pain. ondansetron Yes [id number] 4mg Take 1 Univers 4 mg 2-07 tablet by ity of disintegrat 00:00: mouth [place] ing tablet 00 every 8 Medica l (eight) Branch hours as needed for Nausea and Vomiting (N/V). dicyclomine Yes [id number] 10mg Take 1 Univers (BENTYL) 10 2-07 capsule by it y of mg capsule 00:00: mouth [place] 00 every 8 Medical (eight) Branch hours as needed for Abdominal pain. ondansetron Yes [id number] 4mg Take 1 Univers 4 mg 2-07 tablet by ity of disintegrat 00:00: mouth [place] ing tablet 00 every 8 Medica l (eight) Branch hours as needed for Nausea and Vomiting (N/V). ondansetron Yes [id number] 4mg Take 1 Univers 4 mg 2-07 tablet by ity of disintegrat 00:00: mouth [place] ing tablet 00 every 8 Medica l (eight) Branch hours as needed for Nausea and Vomiting (N/V). dicyclomine 2021- No [id number] 10mg Take 1 Univers (BENTYL) 10 2-05 07-09 capsule by i ty of mg capsule 00:00: 00:00 mouth [place] 00 :00 every 8 Medical (eight) Branch hours as needed for Abdominal pain. omeprazole 2021- No [id number] 20mg Take 1 Univers 20 mg 2-10 capsule by ity of capsule 00:00: 05:59 mouth [place] 00 :00 daily for Medical 30 days. Branch omeprazole 2021- No [id number] 20mg Take 1 Univers 20 mg 2- 03-10 capsule by ity of capsule 00:00: 05:59 mouth [place] 00 :00 daily for Medical 30 days. Branch sucralfate 2021- No [id number] 1g Take 1 Univers 1 gram 2-05 02- tablet by ity of tablet 00:00: 00:00 mouth [place] 00 :00 before Medical meals and Branch at bedtime. bismuth-met 2021- No [id number] 3{capsu Take 3 Univers ronidazole- 2-07 - le} capsules ity of tetracyclin 00:00: 05:59 by mouth [place] e 00 :00 before Medical 140-125-125 meals and Bra nch mg per at bedtime capsule for 14 days. pantoprazol 2020-11 Yes [id number] 40mg Take 1 Univers e 2-13 tablet by ity of (PROTONIX) 00:00: mouth [place] 40 mg EC 00 daily. Medical tablet Branch pantoprazol 2020-11 Yes [id number] 40mg Take 1 Univers e 2-13 tablet by ity of (PROTONIX) 00:00: mouth [place] 40 mg EC 00 daily. Medical tablet Branch pantoprazol 2020-11- No [id number] 40mg Take 1 Univers e 2-13 - tablet by ity of (PROTONIX) 00:00: 00:00 mouth [place] 40 mg EC 00 :00 daily. Medical tablet Branch sucralfate 2020-11- No [id number] 1g Take 1 Univers 1 gram 2-13 -13 tablet by ity of tablet 00:00: 05:59 mouth [place] 00 :00 before Medical meals and Branch at bedtime for 30 days. dicyclomine 2020-11 Yes 10mg 10 mg, Univ ers (BENTYL) 11-23 Oral, QID, ity o f capsule 10 18:00: First dose [place] mg 00 on [facility] 09/23/21 Branch at 1200, Until Discontinu ed, Routine sucralfate 2020-11 Yes 1g 1 g, Oral, U nivers (CARAFATE) 11-23 AC+HS, ity of tablet 1 g 17:30: First dose [place] 00 on [facility] 09/23/21 Branch at 1130, Until Discontinu ed, Routine pantoprazol 2020-11- No 40mg 40 mg, Uni vers e 11-23 Slow IV ity of (PROTONIX) 15:45: 15:00 Push, [place] injection 00 :00 ONCE, 1 Medical 40 mg dose, On Branch [facility] 09/23/21 at 0945 dicyclomine 2020-11 Yes [id number] 10mg Take 1 Univers (BENTYL) 10 11-23 capsule by it y of mg capsule 00:00: mouth [place] 00 every 8 Medical (eight) Branch hours as needed for Abdominal pain. ondansetron 2020-11 Yes [id number] 4mg Take 1 Univers 4 mg 1-23 tablet by ity of disintegrat 00:00: mouth [place] ing tablet 00 every 8 Medica l (eight) Branch hours as needed for Nausea and Vomiting (N/V). sucralfate 2020-11 Yes [id number] 1g Take 1 U nivers 1 gram 1-23 tablet by ity of tablet 00:00: mouth [place] 00 before Medical meals and Branch at bedtime. dicyclomine 2020-11 Yes [id number] 10mg Take 1 Univers (BENTYL) 10 -23 capsule by it y of mg capsule 00:00: mouth [place] 00 every 8 Medical (eight) Branch hours as needed for Abdominal pain. ondansetron 2020-11 Yes [id number] 4mg Take 1 Univers 4 mg 1-23 tablet by ity of disintegrat 00:00: mouth [place] ing tablet 00 every 8 Medica l (eight) Branch hours as needed for Nausea and Vomiting (N/V). pantoprazol 2020-11 Yes [id number] 40mg Take 1 Univers e 1-23 tablet by ity of (PROTONIX) 00:00: mouth [place] 40 mg EC 00 daily. Medical tablet Branch dicyclomine 2020-11- No [id number] 10mg Take 1 Univers (BENTYL) 10 1-23 02-07 capsule by i ty of mg capsule 00:00: 00:00 mouth [place] 00 :00 every 8 Medical (eight) Branch hours as needed for Abdominal pain. ondansetron 2020-11- No [id number] 4mg Take 1 Univers 4 mg 1-23 02-07 tablet by ity of disintegrat 00:00: 00:00 [place] ing tablet 00 :00 every 8 Medica l (eight) Branch hours as needed for Nausea and Vomiting (N/V). sucralfate 2020-11- No [id number] 1g Take 1 Univers 1 gram 1-23 12-13 tablet by ity of tablet 00:00: 00:00 mouth [place] 00 :00 before Medical meals and Branch at bedtime. pantoprazol 2020-11- No [id number] 40mg Take 1 Univers e 1-23 12-13 tablet by ity of (PROTONIX) 00:00: 00:00 mouth [place] 40 mg EC 00 :00 daily. Medical tablet Branch ciprofloxac Yes [id number] 500mg Take 1 Univers in HCl 500 1-25 tablet by ity of mg tablet 00:00: mouth 2 [place] 00 (two) Medical times Branch daily. ciprofloxac 2020- No [id number] 500mg Take 1 Univers in HCl 500 1-25 12-13 tablet by ity of mg tablet 00:00: 00:00 mouth 2 [place] 00 :00 (two) Medical times Branch daily. ondansetron 2020- No [id number] 4mg Take 1 Univers (ZOFRAN 1-25 -23 tablet by ity of ODT) 4 mg 00:00: 00:00 mouth [place] disintegrat 00 :00 every 8 Medic al ing tablet (eight) Branch hours as needed for Nausea and Vomiting (N/V). cyclobenzap 2019-11 Yes [id number] 10mg Take 1 Univers rine 10 mg 1-11 tablet by ity of tablet 00:00: mouth 3 00 (three) Medical times Branch daily. cyclobenzap 2019-11 Yes [id number] 10mg Take 1 Univers rine 10 mg 1-11 tablet by ity of tablet 00:00: mouth 3 (three) Medical times Branch daily. cyclobenzap 2019-11 Yes [id number] 10mg Take 1 Univers rine 10 mg 1-11 tablet by ity of tablet 00:00: mouth 3 00 (three) Medical times Branch daily. cyclobenzap 2019-11 Yes [id number] 10mg Take 1 Univers rine 10 mg 1-11 tablet by ity of tablet 00:00: mouth 3 00 (three) Medical times Branch daily. ibuprofen 2019-11 Yes [id number] 600mg Take 1 Univers 600 mg 1-11 tablet by ity of tablet 00:00: mouth [place] 00 every 6 Medical (six) Branch hours as needed for Pain (scale 4-6). cyclobenzap 2019-11 Yes [id number] 10mg Take 1 Univers rine 10 mg 1-11 tablet by ity of tablet 00:00: mouth 3 00 (three) Medical times Branch daily. ibuprofen 2019-11- No [id number] 600mg Take 1 Univers 600 mg 1-11 [...] Branch OLIC ACID ORAL) bromphenira 2020-0 Yes [id number] 5mL Take 5 mL Univers mine-pseudo 4-04 by mouth 4 it y of ephedrine-D 00:00: (four) [place] M (BROMFED 00 times Medical DM) 2-30-10 daily as Bran ch mg/5 mL needed for syrup Congestion /Allergies or Cough. bromphenira 2020-0 Yes [id number] 5mL Take 5 mL Univers mine-pseudo 4-04 by mouth 4 it y of ephedrine-D 00:00: (four) [place] (BROMFED 00 times Medical DM) 2-30-10 daily as Bran ch mg/5 mL needed for syrup Congestion /Allergies or Cough. bromphenira 2020-0 Yes [id number] 5mL Take 5 mL Univers mine-pseudo 4-04 by mouth 4 it y of ephedrine-D 00:00: (four) [place] (BROMFED 00 times Medical DM) 2-30-10 daily as Bran ch mg/5 mL needed for syrup Congestion /Allergies or Cough. methylPREDN 2020-0 Yes [id number] Take by Univers ISolone 4 4-04 mouth ity of mg tablets 00:00: SEE-INSTRU [place] 00 CTIONS. Medical follow Branch package directions levoFLOXaci 2020-0 Yes [id number] 500mg Take 1 Univers n 4-04 tablet by ity of (LEVAQUIN) 00:00: mouth [place] 500 mg 00 every 24 Medical tablet (twenty-fo Branch ur) hours. bromphenira 2020-0 Yes [id number] 5mL Take 5 mL Univers mine-pseudo 4-04 by mouth 4 it y of ephedrine-D 00:00: (four) [place] M (BROMFED 00 times Medical DM) 2-30-10 daily as Bran ch mg/5 mL needed for syrup Congestion /Allergies or Cough. bromphenira 2020-0 2021- No [id number] 5mL Take 5 mL Univers mine-pseudo 4-04 07-09 by mouth 4 i ty of ephedrine-D 00:00: 00:00 (four) [place] as M (BROMFED 00 :00 times Medical DM) 2-30-10 daily as Bran ch mg/5 mL needed for syrup Congestion /Allergies or Cough. methylPREDN 2019-0 2020- No [id number] Take by Univers ISolone 4 4-04 12-13 mouth ity of mg tablets 00:00: 00:00 SEE-INSTRU [place] 00 :00 CTIONS. Medical follow Branch package directions levoFLOXaci 2020-0 2020- No [id number] 500mg Take 1 Univers n 4-04 12-13 tablet by ity of (LEVAQUIN) 00:00: 00:00 mouth [place] 500 mg 00 :00 every 24 Medical tablet (twenty-fo Branch ur) hours. Immunizations Ordered Filled Immunization Date Status Comments [facility] e Immunization Name Name Td 2016-04-30 Completed University of 00:00:00 [facility] Td 2016-04-30 Completed University of 00:00:00 [facility] Td 2016-04-30 Completed University of 00:00:00 [facility] Td 2016-04-30 Completed University of 00:00:00 [facility] Td 2016-04-30 Completed University of 00:00:00 [facility] Rubella 2010-04-22 Completed University of 00:00:00 [facility] Rubella 2010-04-22 Completed University of 00:00:00 [facility] Rubella 2010-04-22 Completed University of 00:00:00 [facility] Branch Rubella 2010-04-22 Completed University of 00:00:00 [place] [facility] Rubella 2010-04-22 Completed University of 00:00:00 [place] [facility] Td 2006-06-30 Completed University of 00:00:00 [place] [facility] Td 2006-06-30 Completed University of 00:00:00 [place] [facility] Td 2006-06-30 Completed University of 00:00:00 [place] [facility] Td 2006-06-30 Completed University of 00:00:00 [place] [facility] Td 2006-06-30 Completed University of 00:00:00 [facility] Branch Vital Signs Vital Name Observation Time Observation Value Comments Source Systolic blood 2022-05-10 05:14:00 125 mm[Hg] Univer sity of pressure [facility] Diastolic blood 2022-05-10 05:14:00 81 mm[Hg] Unive rsity of [facility] Heart rate 2022-05-10 05:14:00 62 /min [facility] Respiratory rate 2022-05-10 05:14:00 17 /min [facility] Oxygen saturation in 2022-05-10 05:14:00 99 /min [facility] Arterial blood by [facility] Pulse oximetry [place] Body temperature 2022-05-10 02:44:00 36.44 [place] [facility] Body height 2022-05-10 02:44:00 167.6 cm [facility] Body weight 2022-05-10 02:44:00 103.828 kg [facility] BMI 2022-05-10 02:44:00 36.95 kg/m2 [facility] Systolic blood 2021-12-24 17:26:00 147 mm[Hg] Univer sity of pressure [facility] Diastolic blood 2021-12-24 17:26:00 80 mm[Hg] Unive rsity of pressure [facility] Heart rate 2021-12-24 17:26:00 71 /min [facility] Body temperature 2021-12-24 17:26:00 36.17 [facility] 2021-12-24 17:26:00 18 /[facility] [place] [facility] Body weight 2021-12-24 17:26:00 86.183 kg Universi ty of [place] [facility] BMI 2021-12-24 17:26:00 29.76 kg/m2 Universi ty of [place] [facility] Oxygen saturation in 2021-12-24 17:26:00 99 /min University of Arterial blood by [place] Medi denzel Pulse oximetry Branch Systolic blood 2021-12-08 18:45:00 131 mm[Hg] Univer sity of pressure [place] [facility] Diastolic blood 2021-12-08 18:45:00 91 mm[Hg] Unive rsity of pressure [place] [facility] Heart rate 2021-12-08 18:45:00 86 /min Universi ty of [place] [facility] Body temperature 2021-12-08 18:45:00 36.72 [place] Univ ersity of [place] [facility] Respiratory rate 2021-12-08 18:45:00 18 /min Univ ersity of [place] [facility] Body weight 2021-12-08 18:45:00 86.183 kg Universi ty of [place] [facility] BMI 2021-12-08 18:45:00 29.76 kg/m2 Universi ty of [place] [facility] Oxygen saturation in 2021-12-08 18:45:00 98 /min University of Arterial blood by [facility] Pulse oximetry Branch Systolic blood 2021-10-13 13:42:00 123 mm[Hg] Univer sity of pressure [place] [facility] Diastolic blood 2021-10-13 13:42:00 78 mm[Hg] Unive rsity of pressure [place] [facility] Heart rate 2021-10-13 13:42:00 86 /min Universi ty of [place] [facility] Body temperature 2021-10-13 13:42:00 36.78 [place] Univ ersity of [place] [facility] Respiratory rate 2021-10-13 13:42:00 18 /min Univ ersity of [place] [facility] Body weight 2021-10-13 13:42:00 86.183 kg Universi ty of [place] [facility] BMI 2021-10-13 13:42:00 29.76 kg/m2 Universi ty of [place] [facility] Oxygen saturation in 2021-10-13 13:42:00 98 /min University of Arterial blood by [facility] denzel Pulse oximetry Branch Systolic blood 2021-09-23 16:00:00 128 mm[Hg] Univer sity of pressure [place] [facility] Diastolic blood 2021-09-23 16:00:00 79 mm[Hg] [facility] of pressure [facility] Heart rate 2021-09-23 16:00:00 79 /min [facility] Body temperature 2021-09-23 16:00:00 36.72 Chelsea [facility] Oxygen saturation in 2021-09-23 16:00:00 100 /min [facility] Arterial blood by [facility] Pulse oximetry Branch Respiratory rate 2021-09-23 14:25:00 18 /min [facility] Body height 2021-09-23 14:25:00 170.2 cm [facility] Body weight 2021-09-23 14:25:00 86.183 kg [facility] BMI 2021-09-23 14:25:00 29.76 kg/m2 [facility] Procedures Procedure Date / Time Performed Performing Clinician Sourc e LIPASE 2022-05-10 03:37:00 Farzaneh Bo [facility] COMP. METABOLIC PANEL 2022-05-10 03:37:00 Farzaneh Bo [facility] ([id number]) [facility] CBC WITH DIFF 2022-05-10 03:37:00 Farzaneh Bo [facility] POCT TEST 2022-05-10 02:49:00 Farzaneh Bo [facility] URINALYSIS 2022-05-10 02:48:00 Farzaneh Bo [facility] NOTICE OF PRIVACY 2022-05-10 02:33:25 Doctor Unassigned, No [facility] CONSENT/REFUSAL FOR 2022-05-10 02:31:34 Doctor Unassigned, No Un iversity of [place] DIAGNOSIS AND Name Medical Branch TREATMENT CONSENT/REFUSAL FOR 2021-12-24 17:15:06 Doctor Unassigned, No Un [facility]ity of [place] DIAGNOSIS AND Name Medical Branch TREATMENT NOTICE OF PRIVACY 2021-12-08 18:35:32 [facility] CONSENT/REFUSAL FOR 2021-12-08 18:35:08 Doctor Unassigned, No Un [facility] [place] DIAGNOSIS AND Name Medical Branch TREATMENT ASSIGNMENT OF BENEFITS 2021-10-13 13:51:35 Doctor Unassigned, No [facility] Name Medical Branch CONSENT/REFUSAL FOR 2021-10-13 13:36:21 [facility]igned, No [facility] Name Medical Branch TREATMENT COMP. METABOLIC PANEL 2021-09-23 15:35:00 [facility] ([id number]) Medical Branch LIPASE 2021-09-23 14:59:00 Singer [facility] CBC WITH DIFF 2021-09-23 14:59:00 Mata, [facility] CONSENT/REFUSAL FOR 2021-09-23 14:17:56 Doctor Unassigned, No [facility] AND Name Medical Branch TREATMENT Encounters Start End Encounter Admission Attending Care Care Encounter Source Date/Time Date/Time Type Type Clinicians Facility Department ID 2022-05-09 2022-05-10 [facility] [id number] Univers 21:49:00 00:20:00 FARZANEH busby [facility] 2022-05-09 2022-05-10 Emergency [facility] [id number] Univers 21:49:00 00:20:00 Farzaneh OWENS [id number] itkamari [facility] [id number] [facility] [id number] [address] 2021-12-24 2021-12-24 Emergency [facility] [id number] Univers 11:28:00 13:33:00 JAYY busby [facility] 2021-12-24 2021-12-24 Emergency [facility] [id number] Univers 11:28:00 13:33:00 Jayy OW[place] [id number] i asael [facility] [id number] [facility] [id number] [address] 2021-12-08 2021-12-08 Emergency X MATARUST ERT [id number] Univers 12:45:00 14:51:00 SRIDHAR kamari [facility] 2021-12-08 2021-12-08 Emergency [facility] [id number] Univers 12:45:00 14:51:00 Sridhar OWENS [id number] i ty of [place] [id number] [facility] [id number] [address] 2021-10-13 2021-10-13 Emergency [facility] E[facility] [id number] Univers 07:44:00 07:58:00 LATHA itkamari [facility] 2021-10-13 2021-10-13 Emergency [facility] [id number] Univers 07:44:00 07:58:00 Latha OW[place] [id number] ity [facility] [id number] [place] [address] [id number] 2021-09-23 2021-09-23 Emergency X [facility] ERT [id number] Univers 08:30:00 10:37:00 [facility] 2021-09-23 2021-09-23 [facility] [id number] Univers 08:30:00 10:37:00 Sridhar OWENS [id number] i ty of [place] 4.2.7.[address] [place] [id number] 2020-11-25 2020-11-25 Emergency Kyra Medeiros [email or web address] [id number] 15:24:00 20:37:00 Nat Owens [id number] [place] [id number] [place] [address] [id number] [facility] 2020-11-25 2020-11-25 Emergency X [facility] [[email or web address]] ERT [id number] Univers 15:14:00 15:14:00 ity [facility] 2020-10-31 2020-10-31 Emergency Jack Brower [facility] [[email or web address]] [id number] 09:18:00 12:22:00 Gaby Owens [id number] [place] [id number] [place] [address] [id number] 082020-10-31 2020-10-31 Emergency X JACK BROWER [facility] [[email or web address]] ERT [id number] Univers 09:18:00 09:18:00 ity of [facility] 2020-09-11 2020-09-11 Emergency Kyra Medeiros [facility] [[email or web address]] 1.2.840.114 [id number] 14:32:00 16:08:00 Nat [place] [id number] [place] 4.2.7.2.686 [place] [id number] 084 2020-09-11 2020-09-11 Emergency X Kyra MEDEIROS [facility] [[email or web address]] ERT [id number] Univers 14:32:00 14:32:00 ity of [facility] 2020-02-03 2020-02-03 Emergency Fuad [facility] [[email or web address]] [id number] 17:08:08 18:20:00 Anjali [place] 350.1.13.10 [place] 4.2.7.2.686 [place] [id number] 084 2020-02-03 2020-02-03 Emergency X FUAD [facility] [[email or web address]] ERT [id number] Univers 17:00:00 17:00:00 ANJALI ity [facility] 2020-02-03 2020-02-03 Orders Doctor DAVID 1.2.840.114 [id number] 00:00:00 00:00:00 Only Unassigned, ANGIE 350.1.13.10 Veyo [facility] 4.2.7.2.686 [id number] [id number] 2020-01-10 2020-01-11 Emergency [facility] [[email or web address]] [id number] 23:46:02 01:01:00 Serena 350.1.13.10 [place] 4.2.7.2.686 [place] [id number] [id number] 2020-01-10 2020-01-10 Emergency X [facility] [[email or web address]] ERT [id number] Univers 23:02:00 23:02:00 ity of [facility] 2019-12-18 2019-12-18 Emergency X Kyra MEDEIROS [facility] [[email or web address]] ERT [id number] Univers 17:24:37 18:57:00 ity of [facility] 2019-12-18 2019-12-18 Emergency Kyra Medeiros [facility] [[email or web address]] 1.2.840.114 [id number] 17:24:37 18:57:00 Nat Owens 350.1.13.10 [place] 4.2.7.2.686 [place] [id number] [id number] 2019-12-18 2019-12-18 Orders Doctor DAVID 1.2.840.114 [id number] 00:00:00 00:00:00 Only Unassigned, ANGIE 350.1.13.10 [facility] 4.2.7.2.686 [id number] [id number] 2019-06-29 2019-06-29 Emergency Jayes, [facility] [[email or web address]] [id number] [id number] 02:13:29 04:06:00 Jose David Owens [id number] [place] 4.2.7.2.686 [place] [id number] [id number] Results Test Description Test Time Test Comments Results Result Comments Source COMP. METABOLIC PANEL (87372) 2022-05-10 04:28:49 Test Item Value Reference Range Interpretation Comme nts NA (test code = 0265201583) 138 mmol/L 135-145 K (test code = 1845281216) 4.2 mmol/L 3.5-5.0 CL (test code = 4144311578) 104 mmol/L 98-108 CO2 TOTAL (test code = 25 mmol/L 23-31 5256793207) AGAP (test code = 3787706087) 2-16 BUN (test code = 5574283174) 9 mg/dL 7-23 GLUCOSE (test code = 8768181767) 103 mg/dL 70-110 CREATININE (test code = 0.78 mg/dL 0.50-1.04 9548252511) TOTAL BILI (test code = 0.3 mg/dL 0.1-1.0 0091067426) CALCIUM (test code = 8787119910) 9.4 mg/dL 8.6-10.6 T PROTEIN (test code = 7.1 g/dL 6.3-8.2 1330443972) ALBUMIN (test code = 0150924939) 4.4 g/dL 3.5-5.0 ALK PHOS (test code = 8271467689) 55 U/L 34-122 ALTv (test code = 1742-6) 25 U/L 5-35 AST(SGOT) (test code = 23 U/L 13-40 3590935823) eGFR (test code = 5133034222) mL/min/1.73m2 JASMYN (test code = JASMYN) Association [...] or urine or abnormalities in imaging tests). [facility] Test Item Value Reference Range Interpretation Comments LIPASE (test code = 0774056140) 58 U/L 0-220 Lab Interpretation (test code = Normal 54511-8) [facility] [id number] 03:54:04 Test Item Value Reference Range Interpretation Comments WBC (test code = See_Comment [Automated 5275-2) message] The sy stem which generated this [...] RDW-SD (test code = 46.1 fL 39.0-49.9 03493-7) RDW-CV (test code = 16.5 % 12.0-15.5 H 788-0) PLT (test code = See_Comment H [Automated 777-3) message] The sy stem which generated this result transmitted reference range : 166 - 358 10*3/ ?L. The reference r juliano was not used to interpret this result as normal/abnormal . MPV (test code = 10.0 fL 9.5-12.9 91617-5) NRBC/100 WBC (test See_Comment [Automat ed code = 7655813909) message] The system which generated this result transmitted reference range : 0.0 - 10.0 /100 WBCs. The refer ence range was not u sed to interpret th is result as normal/abnormal . NRBC x10^3 (test code <0.01 See_Comment [Auto mated = 4803778122) message] The s ystem which generated this result transmitted reference range : 10*3/?L. The reference range was not used to interpret this result as normal/abnormal . GRAN MAT (NEUT) % 57.9 % (test code = 770-8) IMM GRAN % (test code 0.10 % = 4569975070) LYMPH % (test code = 31.1 % 736-9) MONO % (test code = 7.2 % 5905-5) EOS % (test code = 3.4 % 713-8) BASO % (test code = 0.3 % 706-2) GRAN MAT x10^3(ANC) 4.08 10*3/uL 1.88-7.09 (test code = 3966348620) IMM GRAN x10^3 (test <0.03 0.00-0.06 code = 6207015548) LYMPH x10^3 (test code 2.19 10*3/uL 1.32-3.29 = 731-0) MONO x10^3 (test code 0.51 10*3/uL 0.33-0.92 = 742-7) EOS x10^3 (test code = 0.24 10*3/uL 0.03-0.39 711-2) BASO x10^3 (test code <0.03 0.01-0.07 = 704-7) Lab Interpretation Abnormal (test code = 98838-4) [id number] 02:49:00 Test Item Value Reference Range Interpretation Comments POCT PREG (test code = 1605) Negative On board controls acceptable with Positive C Line (test code = 3574) POCT PREG LOT # (test code = HCG 1693700 5839) POCT PREG TEST DATE (test 08/31/2023 code = 3576) Lab Interpretation (test code = Normal 07007-7) [facility]. METABOLIC PANEL (62575)2021-09-23 16:10:10 Test Item Value Reference Range Interpretation Comments NA (test code = 135 mmol/L 135-145 0213953956) K (test code = 4.5 mmol/L 3.5-5.0 1150691485) CL (test code = 101 mmol/L 98-108 0101808573) CO2 TOTAL (test code 28 mmol/L 23-31 = 6401123789) AGAP (test code = 2-16 5381865940) BUN (test code = 19 mg/dL 7-23 1253836053) GLUCOSE (test code = 94 mg/dL 70-110 5040986673) CREATININE (test code 0.83 mg/dL 0.50-1.04 = 5374728496) TOTAL BILI (test code 0.5 mg/dL 0.1-1.1 = 5019972528) CALCIUM (test code = 9.9 mg/dL 8.6-10.6 4906730500) T PROTEIN (test code 7.6 g/dL 6.3-8.2 = 5316783875) ALBUMIN (test code = 4.5 g/dL 3.5-5.0 7010933886) ALK PHOS (test code = 52 U/L 34-122 4243138769) ALTv (test code = 15 U/L 5-35 1742-6) AST(SGOT) (test code 21 U/L 13-40 = 2200902820) eGFR (test code = mL/min/1.73m2 9590712052) JASMYN (test code = JASMYN) Association of [...] or urine or abnormalities in imaging tests). [facility] 15:52:35 Test Item Value Reference Range Interpretation Comments LIPASE (test code = 2292199753) 72 U/L 0-220 Lab Interpretation (test code = Normal 83207-7) [facility] WITH [id number] 15:37:27 Test Item Value Reference Range Interpretation [...] RDW-SD (test code = 43.4 fL 39.0-49.9 61763-7) RDW-CV (test code = 14.0 % 12.0-15.5 788-0) PLT (test code = See_Comment H [Automated 777-3) message] The sy stem which generated this result transmitted reference range : 166 - 358 10*3/ ?L. The reference r juliano was not used to interpret this result as normal/abnormal . MPV (test code = 10.4 fL 9.5-12.9 61696-7) NRBC/100 WBC (test See_Comment [Automat ed code = 2819956230) message] The system which generated this result transmitted reference range : 0.0 - 10.0 /100 WBCs. The refer ence range was not u sed to interpret th is result as normal/abnormal . NRBC x10^3 (test code <0.01 See_Comment [Auto mated = 4871712136) message] The s ystem which generated this result transmitted reference range : 10*3/?L. The reference range was not used to interpret this result as normal/abnormal . GRAN MAT (NEUT) % 60.5 % (test code = 770-8) IMM GRAN % (test code 0.30 % = 8316814989) LYMPH % (test code = 28.4 % 736-9) MONO % (test code = 6.4 % 5905-5) EOS % (test code = 3.6 % 713-8) BASO % (test code = 0.8 % 706-2) GRAN MAT x10^3(ANC) 3.71 10*3/uL 1.88-7.09 (test code = 4157674695) IMM GRAN x10^3 (test <0.03 0.00-0.06 code = 7075911516) LYMPH x10^3 (test code 1.74 10*3/uL 1.32-3.29 = 731-0) MONO x10^3 (test code 0.39 10*3/uL 0.33-0.92 = 742-7) EOS x10^3 (test code = 0.22 10*3/uL 0.03-0.39 711-2) BASO x10^3 (test code 0.05 10*3/uL 0.01-0.07 = 704-7) Lab Interpretation Abnormal (test code = 45831-6) [facility]"
--- NOTE | 2022-08-13 16:52 | EDPHYS ---
Physician Documentation [facility] Name: Genesis Hu Age: 32 yrs Sex: Female : 1990 Arrival Date: 08/13/2022 Time: 16:36 Bed IW1 Private MD: ED Physician Timmy Barrera HPI: 08/13 16:47 This 32 yrs old Female presents to ER via Unassigned with complaints of Cyst on tonsils.rn 16:47 The patient presents with sore throat. The patient describes throat pain as raw. Onset: rn The symptoms/episode began/occurred 2 week(s) ago. Severity of symptoms: At their worst the symptoms were moderate, in the emergency department the symptoms are unchanged. Modifying factors: The symptoms are alleviated by nothing, the symptoms are aggravated by swallowing. Associated signs and symptoms: Pertinent negatives fever, rhinorrhea, shortness of breath. The patient has experienced similar episodes in the past. The patient has been recently seen by a physician:. Pt reports sore throat for 2 weeks, didn't fill abx last given in this ER, improved with steroids. Returns with persistent sore throat and tonsil pain. Hurts to swallow. NO fever. NO trauma. . 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 - Social history:: Smoking status: Patient denies any tobacco usage or history of. - Family history:: not pertinent. - Hospitalizations: : No recent hospitalization is reported. ROS: 16:47 Constitutional: Negative for fever, chills, and weight loss, Eyes: Negative for injury, rn pain, redness, and discharge, ENT: + sore throat Neck: Negative for injury Cardiovascular: Negative for chest pain, palpitations, and edema, Respiratory: Negative for shortness of breath, cough, wheezing, and pleuritic chest pain, Abdomen/GI: Negative for abdominal pain, nausea, vomiting, diarrhea, and constipation, MS/Extremity: Negative for injury and deformity, Skin: Negative for injury, rash, and discoloration, Neuro: Negative for headache, weakness, numbness, tingling, and seizure. Exam: 16:47 Constitutional: This is a well developed, well nourished patient who is awake, alert, rn and in no acute distress. Head/Face: Normocephalic, atraumatic. ENT: + pharyngeal erythema, no STOCK ASSOCIATE, no swelling or exudate Cardiovascular: Regular rate and rhythm. No pulse deficits. Respiratory: No increased work of breathing, no retractions or nasal flaring. Skin: Warm, dry with normal turgor. Normal color with no rashes, no lesions, and no evidence of cellulitis. Vital Signs: 16:47 BP 133 / 87; Pulse 88; Resp 18; Temp 98.8; Pulse Ox 100% ; Weight 98.43 kg; Height 5 jh5 ft. 5 in. (165.10 cm); Pain 8/10; 16:47 Body Mass Index 36.11 (98.43 kg, 165.10 cm) jh5 MDM: 16:37 Patient medically screened. rn 16:47 Differential diagnosis: pharyngitis, tonsillitis, upper respiratory infection, viral rn syndrome. Data reviewed: vital signs, nurses notes, and as a result, I will discharge patient. Counseling: I had a detailed discussion with the patient and/or guardian regarding: the historical points, exam findings, and any diagnostic results supporting the discharge/admit diagnosis, the need for outpatient follow up, to return to the emergency department if symptoms worsen or persist or if there are any questions or concerns that arise at home. Special discussion: I discussed with the patient/guardian in detail that at this point there is no indication for admission to the hospital. It is understood, however, that if the symptoms persist or worsen the patient needs to return immediately for re-evaluation. Based on the history and exam findings, there is no indication for further emergent testing or inpatient evaluation. I discussed with the patient/guardian the need to see the ENT specialist for further evaluation of the symptoms. ED course: Really urged patient to f/u with ENT as has been multiple visits for this, no f/u, and not taking prescriptions given to her. . 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 Day 2, 3, 4 , 5 take one (1) tablet once daily.; 6 tablet; Refills: 0, Product Selection Permitted - Medrol (Frederick) 4 mg Oral Tablets, Dose Pack - take 1 tablet by ORAL route as directed - follow package instructions; 1 rn packet; Refills: 0, Product Selection Permitted Signatures: Timmy Barrera MD MD rn Rees, Jessica, RN RN jh5
--- NOTE | 2022-08-13 16:52 | ER ---
Nurse's Notes [facility] Name: Genesis Hu Age: 32 yrs Sex: Female : 1990 Arrival Date: 08/13/2022 Time: 16:36 Bed IW1 Private MD: Diagnosis: Acute recurrent tonsillitis, unspecified Presentation: 08/13 16:47 Chief complaint: Patient states: cyst on tonsils; out of home meds. Coronavirus screen: [facility] Vaccine status: Patient reports being unvaccinated. Client denies travel out of the [place] in the last 14 days. Ebola Screen: Patient negative for fever greater than or equal to 101.5 degrees Fahrenheit, and additional compatible Ebola Virus Disease symptoms Patient denies exposure to infectious person. Patient denies travel to an Ebola-affected area in the 21 days before illness onset. Initial Sepsis Screen: Does the patient meet any 2 criteria? No. Patient's initial sepsis screen is negative. Does the patient have a suspected source of infection? No. Patient's initial sepsis screen is negative. Risk Assessment: Do you want to hurt yourself or someone else? Patient reports no desire to harm self or others. Onset of symptoms was August 2022. 16:47 Method Of Arrival: Ambulatory [facility] 16:47 Acuity: KRISTIN 3 [facility] Triage Assessment: 16:48 General: Appears in no apparent distress. uncomfortable, well groomed, well developed, [facility] Behavior is calm, cooperative, appropriate for age. Pain: Complains of pain in tonsils. 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 - Social history:: Smoking status: Patient denies any tobacco usage or history of. - Family history:: not pertinent. - Hospitalizations: : No recent hospitalization is reported. Vital Signs: 16:47 BP 133 / 87; Pulse 88; Resp 18; Temp 98.8; Pulse Ox 100% ; Weight 98.43 kg; Height 5 [facility] ft. 5 in. (165.10 cm); Pain 8/10; 16:47 Body Mass Index 36.11 (98.43 kg, 165.10 cm) [facility] ED Course: 16:36 Patient arrived in ED. mr 16:37 Timmy Barrera MD is Attending Physician. rn 16:48 Triage completed. [facility] 16:48 Arm band placed on right wrist. [facility] 16:50 Elyssa Thornton MD is Referral Physician. rn Administered Medications: No medications were administered Outcome: 16:50 Discharge ordered by . rn 16:54 Patient left the ED. [facility] Signatures: Maria Isabel Rojas mr Timmy Barrera MD MD rn Rees, Jessica, RN RN [facility]
[2022-08-13 16:59] VITALS: BP 133/87; TEMP 98.8; O2SAT 100
== END 2022-08-13 16:54 | disposition home or self-care (01) ==
LOC: ER 16:34
DX: J03.91 Acute recurrent tonsillitis, unspecified (principal); E28.2 Polycystic ovarian syndrome; Z88.0 Allergy status to penicillin; Z91.040 Latex allergy status; Z91.048 Other nonmedicinal substance allergy status; Z87.11 Personal history of peptic ulcer disease
CPT/HCPCS: 99281

== ENCOUNTER 2022-09-04 12:06 | Emergency (ER) | payer OTHER ==
--- OUTSIDE RECORDS SUMMARY | 2022-09-04 12:13 | XMS REPORT | Continuity of Care Document ---
:1990 Author Organization [facility] t Address [facility]3 [address] [place] [address] Care Team Providers Name Role Phone Pcp, [...] ANJALI MERIDA Attending Clinician Unavailable Doctor Unassigned, [place] Attending Clinician Unavailable Jose David Valle MD [...] different from the original. ICD10 Diagnosis Term Card Writer Hand Utility Abnormal Abnormal Disease Active Overview: Un se glucose glucose 07-06 Formattin ity o f tolerance tolerance 00:00: g of this [place] test test 00 note Medical might be Branch different from the original. 1 hr- 47 Immune to Immune to Disease Active Uni vers varicella varicella 07-05 ity of 00:00: [place] 00 Medical Branch High-risk High-risk Disease Active Overview: Univers 06-30 Formattin i ty of 00:00: g of this [place] 00 note Medical might be Branch different from the original. Medical records received. [facility] [place]. DOS- 0. CC: 30 weeks w/ twins, vomiting black liquid. No evidence of hepatitis , pancreati tis, or liver dysfuncti on. Physiolog ic anemia. No UTI or ketonuria . ICD10 Diagnosis Term Card Writer Hand Utility History of History of Disease Active [...] week via for PTL -Twins. Send to [facility] at 16 weeks Pain Pain Disease Active [...] ers POLLEN INGREDI 1-31 ity of 00:00: [place] [id number] Medical Branch Bee Propensi Active Unknown - Unive rs Pollen ty to See comments 12-01 ity of adverse 00:00: [place] reaction 00 Medical s Branch Social History Social Habit Start Date Stop Date Quantity Comments Source Alcohol intake 2022-05-10 2022-05-10 Current University 00:00:00 00:00:00 non-drinker of [facility] alcohol [place] (finding) Exposure to 2022-04-29 2022-05-09 Not sure [facility] SARS-CoV-2 00:00:00 21:36:00 [facility] (event) Branch Tobacco use and 2013-06-30 2013-06-30 Never used Universit y of exposure 00:00:00 00:00:00 [facility] Sex Ass[birth year] At [birth year] Universit y of 00:00:00 00:00:00 [facility] Smoking Status Start Date Stop Date Source Never smoker [facility] Medications Ordered Filled Start Stop Current Ordering Indication Dosage Frequency Signature Comments Components Source Medication Medication Date Date Medication? Clinician (SIG) Name Name dicyclomine No 20mg 20 mg, Uni vers (BENTYL) 05-10 Intramuscu ity of injection 04:15: 03:38 lar, ONCE, [place] 20 mg 00 :00 1 dose, On Medical 05/09/22 Branch at 2315, Routine dicyclomine Yes [id number] 20mg Take 1 Univers 20 mg -10 tablet by ity of tablet 00:00: mouth 4 [place] 00 (four) Medical times Branch daily as needed for Abdominal pain. ferrous 2021- No 1{tbl} Take 1 Unive rs sulfate/vit 05-09 tablet by it y of C/folic ac 23:56: 00:00 mouth [place] (FERROUS 54 :00 daily. Medical SULFATE-C-F Branch OLIC ACID ORAL) dicyclomine 2021- No [id number] 20mg Take 1 Univers 20 mg 05-09 tablet by ity of tablet 00:00: 00:00 mouth 4 [place] 00 :00 (four) Medical times [place] daily as needed for Abdominal pain. clarithromy Yes [id number] 500mg Take 1 Univers dominique 500 mg 2-23 tablet by ity of tablet 00:00: mouth [place] 00 every 12 Medical (twelve) Branch hours. pantoprazol Yes [id number] 40mg Take 1 Univers e 40 mg EC 2-23 tablet by ity of tablet 00:00: mouth [place] 00 daily. Medical Branch pantoprazol Yes [id number] 40mg Take 1 Univers e 40 mg EC 2-23 tablet by ity of tablet 00:00: mouth [place] 00 daily. Medical Branch clarithromy 2021- No [id number] 500mg Take 1 Univers dominique 500 mg 2-23 -09 tablet by ity of tablet 00:00: 00:00 mouth [place] 00 :00 every 12 Medical (twelve) Branch hours. sucralfate 2021- No [id number] 1g Take 1 Univers 1 gram 2-23 - tablet by ity of tablet 00:00: 04:59 mouth [place] 00 :00 before Medical meals and Branch at bedtime for 30 days. metroNIDAZO 2021- No [id number] 500mg Take 1 Univers LE 500 mg 2-23 -10 tablet by ity of tablet 00:00: 05:59 mouth [place] 00 :00 every 8 Medical (eight) Branch hours for 14 days. sucralfate 2021- No [id number] 1g Take 1 Univers 1 gram 2-23 - tablet by ity of tablet 00:00: 00:00 mouth [place] 00 :00 before Medical meals and Branch at bedtime. maalox:diph 2021- No 15mL 15 mL, Uni vers enhydrAMINE 2 02- Oral, ity of :lidocaine 21:30: 20:30 ONCE, 1 [place] as 2 % viscous 00 :00 dose, On Medi denzel 1:1:1 12/08/21 Branch (FIRST-MOUT at 1530, [facility]) Routine oral suspension 15 mL sucralfate Yes [id number] 1g Take 1 U nivers 1 gram 2-07 tablet by ity of tablet 00:00: mouth [place] 00 before Medical meals and Branch at bedtime. dicyclomine Yes [id number] 10mg Take 1 Univers (BENTYL) 10 2-07 capsule by it y of mg capsule 00:00: mouth [place] 00 every 8 Medical (eight) Branch hours as needed for Abdominal pain. ondansetron Yes [id number] 4mg Take 1 Univers 4 mg 2-07 tablet by ity of disintegrat 00:00: mouth [place] ing tablet 00 every 8 Medica l (eight) Branch hours as needed for Nausea and Vomiting (N/V). dicyclomine Yes [id number] 10mg Take 1 Univers (BENTYL) 10 2-07 capsule by it y of mg capsule 00:00: mouth [place] 00 every 8 Medical (eight) Branch hours as needed for Abdominal pain. ondansetron Yes [id number] 4mg Take 1 Univers 4 mg 2-07 tablet by ity of disintegrat 00:00: mouth [place] ing tablet 00 every 8 Medica l (eight) Branch hours as needed for Nausea and Vomiting (N/V). ondansetron Yes [id number] 4mg Take 1 Univers 4 mg 2-07 tablet by ity of disintegrat 00:00: mouth [place] ing tablet 00 every 8 Medica l (eight) Branch hours as needed for Nausea and Vomiting (N/V). dicyclomine 2021- No [id number] 10mg Take 1 Univers (BENTYL) 10 2-05 07-09 capsule by i ty of mg capsule 00:00: 00:00 mouth [place] 00 :00 every 8 Medical (eight) Branch hours as needed for Abdominal pain. omeprazole 2021- No [id number] 20mg Take 1 Univers 20 mg 2-10 capsule by ity of capsule 00:00: 05:59 mouth [place] 00 :00 daily for Medical 30 days. Branch omeprazole 2021- No [id number] 20mg Take 1 Univers 20 mg 2- 03-10 capsule by ity of capsule 00:00: 05:59 mouth [place] 00 :00 daily for Medical 30 days. Branch sucralfate 2021- No [id number] 1g Take 1 Univers 1 gram 2-05 02- tablet by ity of tablet 00:00: 00:00 mouth [place] 00 :00 before Medical meals and Branch at bedtime. bismuth-met 2021- No [id number] 3{capsu Take 3 Univers ronidazole- 2-07 - le} capsules ity of tetracyclin 00:00: 05:59 by mouth [place] e 00 :00 before Medical 140-125-125 meals and Bra nch mg per at bedtime capsule for 14 days. pantoprazol 2020-11 Yes [id number] 40mg Take 1 Univers e 2-13 tablet by ity of (PROTONIX) 00:00: mouth [place] 40 mg EC 00 daily. Medical tablet Branch pantoprazol 2020-11 Yes [id number] 40mg Take 1 Univers e 2-13 tablet by ity of (PROTONIX) 00:00: mouth [place] 40 mg EC 00 daily. Medical tablet Branch pantoprazol 2020-11- No [id number] 40mg Take 1 Univers e 2-13 - tablet by ity of (PROTONIX) 00:00: 00:00 mouth [place] 40 mg EC 00 :00 daily. Medical tablet Branch sucralfate 2020-11- No [id number] 1g Take 1 Univers 1 gram 2-13 -13 tablet by ity of tablet 00:00: 05:59 mouth [place] 00 :00 before Medical meals and Branch at bedtime for 30 days. dicyclomine 2020-11 Yes 10mg 10 mg, Univ ers (BENTYL) 11-23 Oral, QID, ity o f capsule 10 18:00: First dose [place] mg 00 on [facility] 09/23/21 Branch at 1200, Until Discontinu ed, Routine sucralfate 2020-11 Yes 1g 1 g, Oral, U nivers (CARAFATE) 11-23 AC+HS, ity of tablet 1 g 17:30: First dose [place] 00 on [facility] 09/23/21 Branch at 1130, Until Discontinu ed, Routine pantoprazol 2020-11- No 40mg 40 mg, Uni vers e 11-23 Slow IV ity of (PROTONIX) 15:45: 15:00 Push, [place] injection 00 :00 ONCE, 1 Medical 40 mg dose, On Branch [facility] 09/23/21 at 0945 dicyclomine 2020-11 Yes [id number] 10mg Take 1 Univers (BENTYL) 10 11-23 capsule by it y of mg capsule 00:00: mouth [place] 00 every 8 Medical (eight) Branch hours as needed for Abdominal pain. ondansetron 2020-11 Yes [id number] 4mg Take 1 Univers 4 mg 1-23 tablet by ity of disintegrat 00:00: mouth [place] ing tablet 00 every 8 Medica l (eight) Branch hours as needed for Nausea and Vomiting (N/V). sucralfate 2020-11 Yes [id number] 1g Take 1 U nivers 1 gram 1-23 tablet by ity of tablet 00:00: mouth [place] 00 before Medical meals and Branch at bedtime. dicyclomine 2020-11 Yes [id number] 10mg Take 1 Univers (BENTYL) 10 -23 capsule by it y of mg capsule 00:00: mouth [place] 00 every 8 Medical (eight) Branch hours as needed for Abdominal pain. ondansetron 2020-11 Yes [id number] 4mg Take 1 Univers 4 mg 1-23 tablet by ity of disintegrat 00:00: mouth [place] ing tablet 00 every 8 Medica l (eight) Branch hours as needed for Nausea and Vomiting (N/V). pantoprazol 2020-11 Yes [id number] 40mg Take 1 Univers e 1-23 tablet by ity of (PROTONIX) 00:00: mouth [place] 40 mg EC 00 daily. Medical tablet Branch dicyclomine 2020-11- No [id number] 10mg Take 1 Univers (BENTYL) 10 1-23 02-07 capsule by i ty of mg capsule 00:00: 00:00 mouth [place] 00 :00 every 8 Medical (eight) Branch hours as needed for Abdominal pain. ondansetron 2020-11- No [id number] 4mg Take 1 Univers 4 mg 1-23 02-07 tablet by ity of disintegrat 00:00: 00:00 [place] ing tablet 00 :00 every 8 Medica l (eight) Branch hours as needed for Nausea and Vomiting (N/V). sucralfate 2020-11- No [id number] 1g Take 1 Univers 1 gram 1-23 12-13 tablet by ity of tablet 00:00: 00:00 mouth [place] 00 :00 before Medical meals and Branch at bedtime. pantoprazol 2020-11- No [id number] 40mg Take 1 Univers e 1-23 12-13 tablet by ity of (PROTONIX) 00:00: 00:00 mouth [place] 40 mg EC 00 :00 daily. Medical tablet Branch ciprofloxac Yes [id number] 500mg Take 1 Univers in HCl 500 1-25 tablet by ity of mg tablet 00:00: mouth 2 [place] 00 (two) Medical times Branch daily. ciprofloxac 2020- No [id number] 500mg Take 1 Univers in HCl 500 1-25 12-13 tablet by ity of mg tablet 00:00: 00:00 mouth 2 [place] 00 :00 (two) Medical times Branch daily. ondansetron 2020- No [id number] 4mg Take 1 Univers (ZOFRAN 1-25 -23 tablet by ity of ODT) 4 mg 00:00: 00:00 mouth [place] disintegrat 00 :00 every 8 Medic al ing tablet (eight) Branch hours as needed for Nausea and Vomiting (N/V). cyclobenzap 2019-11 Yes [id number] 10mg Take 1 Univers rine 10 mg 1-11 tablet by ity of tablet 00:00: mouth 3 00 (three) Medical times Branch daily. cyclobenzap 2019-11 Yes [id number] 10mg Take 1 Univers rine 10 mg 1-11 tablet by ity of tablet 00:00: mouth 3 (three) Medical times Branch daily. cyclobenzap 2019-11 Yes [id number] 10mg Take 1 Univers rine 10 mg 1-11 tablet by ity of tablet 00:00: mouth 3 00 (three) Medical times Branch daily. cyclobenzap 2019-11 Yes [id number] 10mg Take 1 Univers rine 10 mg 1-11 tablet by ity of tablet 00:00: mouth 3 00 (three) Medical times Branch daily. ibuprofen 2019-11 Yes [id number] 600mg Take 1 Univers 600 mg 1-11 tablet by ity of tablet 00:00: mouth [place] 00 every 6 Medical (six) Branch hours as needed for Pain (scale 4-6). cyclobenzap 2019-11 Yes [id number] 10mg Take 1 Univers rine 10 mg 1-11 tablet by ity of tablet 00:00: mouth 3 00 (three) Medical times Branch daily. ibuprofen 2019-11- No [id number] 600mg Take 1 Univers 600 mg 1-11 [...] Branch OLIC ACID ORAL) bromphenira 2020-0 Yes [id number] 5mL Take 5 mL Univers mine-pseudo 4-04 by mouth 4 it y of ephedrine-D 00:00: (four) [place] M (BROMFED 00 times Medical DM) 2-30-10 daily as Bran ch mg/5 mL needed for syrup Congestion /Allergies or Cough. bromphenira 2020-0 Yes [id number] 5mL Take 5 mL Univers mine-pseudo 4-04 by mouth 4 it y of ephedrine-D 00:00: (four) [place] M (BROMFED 00 times Medical DM) 2-30-10 daily as Bran ch mg/5 mL needed for syrup Congestion /Allergies or Cough. bromphenira 2020-0 Yes [id number] 5mL Take 5 mL Univers mine-pseudo 4-04 by mouth 4 it y of ephedrine-D 00:00: (four) [place] M (BROMFED 00 times Medical DM) 2-30-10 daily as Bran ch mg/5 mL needed for syrup Congestion /Allergies or Cough. methylPREDN 2020-0 Yes [id number] Take by Univers ISolone 4 4-04 mouth ity of mg tablets 00:00: SEE-INSTRU [place] 00 CTIONS. Medical follow Branch package directions levoFLOXaci 2020-0 Yes [id number] 500mg Take 1 Univers n 4-04 tablet by ity of (LEVAQUIN) 00:00: mouth [place] 500 mg 00 every 24 Medical tablet (twenty-fo Branch ur) hours. bromphenira 2020-0 Yes [id number] 5mL Take 5 mL Univers mine-pseudo 4-04 by mouth 4 it y of ephedrine-D 00:00: (four) [place] M (BROMFED 00 times Medical DM) 2-30-10 daily as Bran ch mg/5 mL needed for syrup Congestion /Allergies or Cough. bromphenira 2020-0 2021- No [id number] 5mL Take 5 mL Univers mine-pseudo 4-04 07-09 by mouth 4 i ty of ephedrine-D 00:00: 00:00 (four) [place] as M (BROMFED 00 :00 times Medical DM) 2-30-10 daily as Bran ch mg/5 mL needed for syrup Congestion /Allergies or Cough. methylPREDN 2019-0 2020- No [id number] Take by Univers ISolone 4 4-04 12-13 mouth ity of mg tablets 00:00: 00:00 SEE-INSTRU [place] 00 :00 CTIONS. Medical follow Branch package directions levoFLOXaci 2020-0 2020- No [id number] 500mg Take 1 Univers n 4-04 12-13 tablet by ity of (LEVAQUIN) 00:00: 00:00 mouth [place] 500 mg 00 :00 every 24 Medical tablet (twenty-fo Branch ur) hours. Immunizations Ordered Filled Immunization Date Status Comments [facility] e Immunization Name Name Td 2016-04-30 Completed University of 00:00:00 [facility] Td 2016-04-30 Completed University of 00:00:00 [facility] Td 2016-04-30 Completed University of 00:00:00 [facility] Td 2016-04-30 Completed University of 00:00:00 [facility] Td 2016-04-30 Completed University of 00:00:00 [facility] Rubella 2010-04-22 Completed University of 00:00:00 [facility] Rubella 2010-04-22 Completed University of 00:00:00 [facility] Rubella 2010-04-22 Completed University of 00:00:00 [facility] Branch Rubella 2010-04-22 Completed University of 00:00:00 [place] [facility] Rubella 2010-04-22 Completed University of 00:00:00 [place] [facility] Td 2006-06-30 Completed University of 00:00:00 [place] [facility] Td 2006-06-30 Completed University of 00:00:00 [place] [facility] Td 2006-06-30 Completed University of 00:00:00 [place] [facility] Td 2006-06-30 Completed University of 00:00:00 [place] [facility] Td 2006-06-30 Completed University of 00:00:00 [facility] Branch Vital Signs Vital Name Observation Time Observation Value Comments Source Systolic blood 2022-05-10 05:14:00 125 mm[Hg] Univer sity of pressure [facility] Diastolic blood 2022-05-10 05:14:00 81 mm[Hg] Unive rsity of [facility] Heart rate 2022-05-10 05:14:00 62 /min [facility] Respiratory rate 2022-05-10 05:14:00 17 /min [facility] Oxygen saturation in 2022-05-10 05:14:00 99 /min [facility] Arterial blood by [facility] Pulse oximetry [place] Body temperature 2022-05-10 02:44:00 36.44 Chelsea [facility] Body height 2022-05-10 02:44:00 167.6 cm [facility] Body weight 2022-05-10 02:44:00 103.828 kg [facility] BMI 2022-05-10 02:44:00 36.95 kg/m2 [facility] Systolic blood 2021-12-24 17:26:00 147 mm[Hg] Univer sity of pressure [facility] Diastolic blood 2021-12-24 17:26:00 80 mm[Hg] Unive rsity of pressure [facility] Heart rate 2021-12-24 17:26:00 71 /min [facility] Body temperature 2021-12-24 17:26:00 36.17 Chelsea [facility] [place] [facility] 2021-12-24 17:26:00 18 /min [facility] [place] [facility] Body weight 2021-12-24 17:26:00 86.183 kg Universi ty of [place] [facility] BMI 2021-12-24 17:26:00 29.76 kg/m2 Universi ty of [place] [facility] Oxygen saturation in 2021-12-24 17:26:00 99 /min University of Arterial blood by [place] Medi denzel Pulse oximetry Branch Systolic blood 2021-12-08 18:45:00 131 mm[Hg] Univer sity of pressure [place] [facility] Diastolic blood 2021-12-08 18:45:00 91 mm[Hg] Unive rsity of pressure [place] [facility] Heart rate 2021-12-08 18:45:00 86 /min Universi ty of [place] [facility] Body temperature 2021-12-08 18:45:00 36.72 [place] Univ ersity of [place] [facility] Respiratory rate 2021-12-08 18:45:00 18 /min Univ ersity of [place] [facility] Body weight 2021-12-08 18:45:00 86.183 kg Universi ty of [place] [facility] BMI 2021-12-08 18:45:00 29.76 kg/m2 Universi ty of [place] [facility] Oxygen saturation in 2021-12-08 18:45:00 98 /min University of Arterial blood by [facility] Pulse oximetry Branch Systolic blood 2021-10-13 [...] 98 /min University of Arterial blood by [facility] denzel Pulse oximetry Branch Systolic blood 2021-09-23 16:00:00 128 mm[Hg] Univer sity of pressure [place] [facility] Diastolic blood 2021-09-23 16:00:00 79 mm[Hg] [facility] of pressure [facility] Heart rate 2021-09-23 16:00:00 79 /min [facility] Body temperature 2021-09-23 16:00:00 36.72 Chelsea [facility] Oxygen saturation in 2021-09-23 16:00:00 100 /min [facility] Arterial blood by [facility] Pulse oximetry Branch Respiratory rate 2021-09-23 14:25:00 18 /min [facility] Body height 2021-09-23 14:25:00 170.2 cm [facility] Body weight 2021-09-23 14:25:00 86.183 kg [facility] BMI 2021-09-23 14:25:00 29.76 kg/m2 [facility] Procedures Procedure Date / Time Performed Performing Clinician Sourc e LIPASE 2022-05-10 03:37:00 Farzaneh Bo [facility] COMP. METABOLIC PANEL 2022-05-10 03:37:00 Farzaneh Bo [facility] ([id number]) [facility] CBC WITH DIFF 2022-05-10 03:37:00 Fazraneh Bo [facility] POCT TEST 2022-05-10 02:49:00 Farzaneh Bo [facility] URINALYSIS 2022-05-10 02:48:00 Farzaneh Bo [facility] NOTICE OF PRIVACY 2022-05-10 02:33:25 Doctor Unassigned, No [facility] [place] [facility] CONSENT/REFUSAL FOR 2022-05-10 02:31:34 Doctor Unassigned, No Un [facility] [place] DIAGNOSIS AND Name Medical Branch TREATMENT CONSENT/REFUSAL FOR 2021-12-24 17:15:06 Doctor Unassigned, No Un [facility] [place] DIAGNOSIS AND Name Medical Branch TREATMENT NOTICE OF PRIVACY 2021-12-08 18:35:32 [facility], [facility] CONSENT/REFUSAL FOR 2021-12-08 18:35:08 Doctor Unassigned, No Un [facility] [place] DIAGNOSIS AND Name Medical Branch TREATMENT ASSIGNMENT OF BENEFITS 2021-10-13 13:51:35 Doctor Unassigned, No [facility] Name Medical Branch CONSENT/REFUSAL FOR 2021-10-13 13:36:21 Doctor Unassigned, No [facility] Name Medical Branch TREATMENT COMP. METABOLIC PANEL 2021-09-23 15:35:00 [facility]ridhar [facility] [place] [facility] ([id number] Medical Branch LIPASE 2021-09-23 14:59:00 Singer [facility] CBC WITH DIFF 2021-09-23 14:59:00 Mata, [facility] CONSENT/REFUSAL FOR 2021-09-23 14:17:56 Doctor Unassigned, No [facility] AND Name Medical Branch TREATMENT Encounters Start End Encounter Admission Attending Care Care Encounter Source Date/Time Date/Time Type Type Clinicians Facility Department ID 2022-05-09 2022-05-10 [facility] [id number] Univers 21:49:00 00:20:00 FARZANEH busby [facility] 2022-05-09 2022-05-10 [facility] [id number] Univers 21:49:00 00:20:00 Farzaneh OWENS [id number] itkamari [facility] [id number] [facility] [id number] [address] 2021-12-24 2021-12-24 Emergency [facility] [id number] Univers 11:28:00 13:33:00 JAYY busby [facility] 2021-12-24 2021-12-24 Emergency [facility] [id number] Univers 11:28:00 13:33:00 Jayy [place] [id number] i asael [facility] [id number] [facility] [id number] [address] 2021-12-08 2021-12-08 Emergency X [facility] ERT [id number] Univers 12:45:00 14:51:00 SRIDHAR kamari [facility] 2021-12-08 2021-12-08 Emergency [facility] [id number] Univers 12:45:00 14:51:00 Sridhar OW[place] [id number] i ty of [place] [id number] [facility] [id number] [address] 2021-10-13 2021-10-13 Emergency [facility] [id number] Univers 07:44:00 07:58:00 LATHA itkamari [facility] 2021-10-13 2021-10-13 Emergency [facility] [id number] Univers 07:44:00 07:58:00 Latha OWENS [id number] ity [facility] [id number] [place] [id number] 2021-09-23 2021-09-23 Emergency X [facility] ERT [id number] Univers 08:30:00 10:37:00 [facility] 2021-09-23 2021-09-23 [facility] [id number] Univers 08:30:00 10:37:00 Sridhar OWENS [id number] i ty of [place] 4.2.7.[address] [place] [id number] 2020-11-25 2020-11-25 Emergency Kyra Medeiros [facility] [id number] 15:24:00 20:37:00 Nat Owens [id number] [place] [id number] [place] [address] [id number] [facility] 2020-11-25 2020-11-25 Emergency X [facility] ERT [id number] Univers 15:14:00 15:14:00 ity [facility] 2020-10-31 2020-10-31 Emergency Jack Brower [facility] [id number] 09:18:00 12:22:00 Gaby [place] [id number] [place] [id number] [place] [address] [id number] 082020-10-31 2020-10-31 Emergency X JACK BROWER [facility] ERT [id number] Univers 09:18:00 09:18:00 ity of [facility] 2020-09-11 2020-09-11 Emergency Kyra Medeiros [facility] [id number] 14:32:00 16:08:00 Nat [place] [id number] [place] [id number] [place] [id number] 2020-09-11 2020-09-11 Emergency X Kyra MEDEIROS [facility] ERT [id number] Univers 14:32:00 14:32:00 ity of [facility] 2020-02-03 2020-02-03 Emergency Fuad [facility] [id number] 17:08:08 18:20:00 Anjali [place] [id number] [place] [id number] [place] [id number] 2020-02-03 2020-02-03 Emergency X FUAD [facility] ERT [id number] Univers 17:00:00 17:00:00 ANJALI ity [facility] 2020-02-03 2020-02-03 Orders Doctor DAVID [id number] 00:00:00 00:00:00 Only Unassigned, ANGIE [id number] [place] [facility] [id number] [id number] 2020-01-10 2020-01-11 Emergency [facility] [id number] 23:46:02 01:01:00 Serena [id number] [place] [id number] [place] [id number] 2020-01-10 2020-01-10 Emergency X [facility] ERT [id number] Univers 23:02:00 23:02:00 ity of [facility] 2019-12-18 2019-12-18 Emergency X Kyra MEDEIROS [facility] ERT [id number] Univers 17:24:37 18:57:00 ity of [facility] 2019-12-18 2019-12-18 Emergency Kyra Medeiros [facility] [id number] 17:24:37 18:57:00 Nat Owens [id number] [place] [id number] [place] [id number] 2019-12-18 2019-12-18 Orders Doctor DAVID [id number] 00:00:00 00:00:00 Only Unassigned, ANGIE [id number] [facility] [id number] 2019-06-29 2019-06-29 Emergency Jayes, [facility] [id number] 02:13:29 04:06:00 Jose David Owens [id number] [place] [id number] [place] [id number] Results Test Description Test Time Test Comments Results Result Comments Source COMP. METABOLIC PANEL (83993) 2022-05-10 04:28:49 Test Item Value Reference Range Interpretation Comme nts NA (test code = 1933616407) 138 mmol/L 135-145 K (test code = 5129680265) 4.2 mmol/L 3.5-5.0 CL (test code = 9631981554) 104 mmol/L 98-108 CO2 TOTAL (test code = 25 mmol/L 23-31 3820337099) AGAP (test code = 9076119434) 2-16 BUN (test code = 6078132852) 9 mg/dL 7-23 GLUCOSE (test code = 7754851451) 103 mg/dL 70-110 CREATININE (test code = 0.78 mg/dL 0.50-1.04 7733979119) TOTAL BILI (test code = 0.3 mg/dL 0.1-1.6 5628657438) CALCIUM (test code = 4102333784) 9.4 mg/dL 8.6-10.6 T PROTEIN (test code = 7.1 g/dL 6.3-8.2 2866212272) ALBUMIN (test code = 9101516881) 4.4 g/dL 3.5-5.0 ALK PHOS (test code = 5449049112) 55 U/L 34-122 ALTv (test code = 1742-6) 25 U/L 5-35 AST(SGOT) (test code = 23 U/L 13-40 5280418922) eGFR (test code = 2016714512) mL/min/1.73m2 JASMYN (test code = JASMYN) Association [...] or urine or abnormalities in imaging tests). [facility] Test Item Value Reference Range Interpretation Comments LIPASE (test code = 9877749779) 58 U/L 0-220 Lab Interpretation (test code = Normal 63129-9) [facility] [id number] 03:54:04 Test Item Value Reference Range Interpretation Comments WBC (test code = See_Comment [Automated 1221-2) message] The sy stem which generated this [...] RDW-SD (test code = 46.1 fL 39.0-49.9 20874-6) RDW-CV (test code = 16.5 % 12.0-15.5 H 788-0) PLT (test code = See_Comment H [Automated 777-3) message] The sy stem which generated this result transmitted reference range : 166 - 358 10*3/ ?L. The reference r juliano was not used to interpret this result as normal/abnormal . MPV (test code = 10.0 fL 9.5-12.9 23600-8) NRBC/100 WBC (test See_Comment [Automat ed code = 8302552794) message] The system which generated this result transmitted reference range : 0.0 - 10.0 /100 WBCs. The refer ence range was not u sed to interpret th is result as normal/abnormal . NRBC x10^3 (test code <0.01 See_Comment [Auto mated = 3305319552) message] The s ystem which generated this result transmitted reference range : 10*3/?L. The reference range was not used to interpret this result as normal/abnormal . GRAN MAT (NEUT) % 57.9 % (test code = 770-8) IMM GRAN % (test code 0.10 % = 8833234013) LYMPH % (test code = 31.1 % 736-9) MONO % (test code = 7.2 % 5905-5) EOS % (test code = 3.4 % 713-8) BASO % (test code = 0.3 % 706-2) GRAN MAT x10^3(ANC) 4.08 10*3/uL 1.88-7.09 (test code = 9943371182) IMM GRAN x10^3 (test <0.03 0.00-0.06 code = 0378751611) LYMPH x10^3 (test code 2.19 10*3/uL 1.32-3.29 = 731-0) MONO x10^3 (test code 0.51 10*3/uL 0.33-0.92 = 742-7) EOS x10^3 (test code = 0.24 10*3/uL 0.03-0.39 711-2) BASO x10^3 (test code <0.03 0.01-0.07 = 704-7) Lab Interpretation Abnormal (test code = 88093-5) [id number] 02:49:00 Test Item Value Reference Range Interpretation Comments POCT PREG (test code = 1605) Negative On board controls acceptable with Positive C Line (test code = 3574) POCT PREG LOT # (test code = HCG [id number] [id number]) POCT PREG TEST DATE (test 08/31/2023 code = 3576) Lab Interpretation (test code = Normal 72527-5) [facility]. METABOLIC PANEL (07036)2021-09-23 16:10:10 Test Item Value Reference Range Interpretation Comments NA (test code = 135 mmol/L 135-145 8651267434) K (test code = 4.5 mmol/L 3.5-5.0 9645235331) CL (test code = 101 mmol/L 98-108 6688044752) CO2 TOTAL (test code 28 mmol/L 23-31 = 6147913516) AGAP (test code = 2-16 9587995217) BUN (test code = 19 mg/dL 7-23 1702449942) GLUCOSE (test code = 94 mg/dL 70-110 2527159488) CREATININE (test code 0.83 mg/dL 0.50-1.04 = 0024160245) TOTAL BILI (test code 0.5 mg/dL 0.1-1.1 = 5791294207) CALCIUM (test code = 9.9 mg/dL 8.6-10.6 0457722958) T PROTEIN (test code 7.6 g/dL 6.3-8.2 = 6153663764) ALBUMIN (test code = 4.5 g/dL 3.5-5.0 4320692029) ALK PHOS (test code = 52 U/L 34-122 5182928735) ALTv (test code = 15 U/L 5-35 1742-6) AST(SGOT) (test code 21 U/L 13-40 = 6686465206) eGFR (test code = mL/min/1.73m2 8119666051) JASMYN (test code = JASMYN) Association of [...] or urine or abnormalities in imaging tests). [facility] 15[facility]52[facility]35 Test Item Value Reference Range Interpretation Comments LIPASE (test code = 1466668140) 72 U/L 0-220 Lab Interpretation (test code = Normal 64024-0) [facility] WITH [id number] 15:37:27 Test Item Value Reference Range Interpretation [...] RDW-SD (test code = 43.4 fL 39.0-49.9 94806-4) RDW-CV (test code = 14.0 % 12.0-15.5 788-0) PLT (test code = See_Comment H [Automated 777-3) message] The sy stem which generated this result transmitted reference range : 166 - 358 10*3/ ?L. The reference r juliano was not used to interpret this result as normal/abnormal . MPV (test code = 10.4 fL 9.5-12.9 62023-4) NRBC/100 WBC (test See_Comment [Automat ed code = 3462314579) message] The system which generated this result transmitted reference range : 0.0 - 10.0 /100 WBCs. The refer ence range was not u sed to interpret th is result as normal/abnormal . NRBC x10^3 (test code <0.01 See_Comment [Auto mated = 9649203777) message] The s ystem which generated this result transmitted reference range : 10*3/?L. The reference range was not used to interpret this result as normal/abnormal . GRAN MAT (NEUT) % 60.5 % (test code = 770-8) IMM GRAN % (test code 0.30 % = 6512641501) LYMPH % (test code = 28.4 % 736-9) MONO % (test code = 6.4 % 5905-5) EOS % (test code = 3.6 % 713-8) BASO % (test code = 0.8 % 706-2) GRAN MAT x10^3(ANC) 3.71 10*3/uL 1.88-7.09 (test code = 9797130965) IMM GRAN x10^3 (test <0.03 0.00-0.06 code = 9470936638) LYMPH x10^3 (test code 1.74 10*3/uL 1.32-3.29 = 731-0) MONO x10^3 (test code 0.39 10*3/uL 0.33-0.92 = 742-7) EOS x10^3 (test code = 0.22 10*3/uL 0.03-0.39 711-2) BASO x10^3 (test code 0.05 10*3/uL 0.01-0.07 = 704-7) Lab Interpretation Abnormal (test code = 64087-4) [facility]"
[2022-09-04] MEDS ORDERED: dexAMETHasone 10 MG/ML VIAL ONE (12:58)
--- NOTE | 2022-09-04 14:02 | ER ---
Nurse's Notes [facility] Name: Genesis Hu Age: 32 yrs Sex: Female : 1990 Arrival Date: 09/04/2022 Time: 12:09 Bed 9 Private MD: Diagnosis: Acute pharyngitis, unspecified Presentation: 09/04 12:30 Chief complaint: Patient states: has been dealing with a "cyst" on her tonsils for over iw a month, she was on antibiotics but not gotten better, she could not f/u with ENT because she doesn't have insurance. Coronavirus screen: At this time, the client does not indicate any symptoms associated with coronavirus-19. Ebola Screen: Patient negative for fever greater than or equal to 101.5 degrees Fahrenheit, and additional compatible Ebola Virus Disease symptoms Patient denies exposure to infectious person. Patient denies travel to an Ebola-affected area in the 21 days before illness onset. No symptoms or risks identified at this time. Initial Sepsis Screen: Does the patient meet any 2 criteria? No. Patient's initial sepsis screen is negative. Does the patient have a suspected source of infection? No. Patient's initial sepsis screen is negative. Risk Assessment: Do you want to hurt yourself or someone else? Patient reports no desire to harm self or others. Onset of symptoms was September 04, 2022. 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 - Social history:: Smoking status: Patient denies any tobacco usage or history of. Screenin:18 Abuse screen: Denies threats or abuse. Denies injuries from another. Nutritional tp1 screening: No deficits noted. Tuberculosis screening: No symptoms or risk factors identified. Fall Risk None identified. Assessment: 13:04 General: Appears in no apparent distress. comfortable, Behavior is calm, cooperative. tp1 Pain: Complains of pain in throat Pain does not radiate. Pain currently is 6 out of 10 on a pain scale. Is continuous. Neuro: Level of Consciousness is awake, alert, obeys commands, Oriented to person, place, time, situation. Cardiovascular: Patient's skin is warm and dry. Respiratory: Airway is patent Respiratory effort is even, unlabored, Denies shortness of breath. GI: Abdomen is flat, non-distended, Reports anorexia, Patient currently denies diarrhea, nausea, vomiting. : No signs and/or symptoms were reported regarding the genitourinary system. Derm: Skin is pink, warm \\T\\ dry. Musculoskeletal: Circulation, motion, and sensation intact. 13:40 Reassessment: Patient appears in no apparent distress at this time. No changes from tp1 previously documented assessment. Patient and/or family updated on plan of care and expected duration. Pain level reassessed. Patient is alert, oriented x 3, equal unlabored respirations, skin warm/dry/pink. 14:12 EENT: Throat is clear. tp1 Vital Signs: 12:37 BP 123 / 75; Pulse 75; Resp 16; Temp 99.0; Pulse Ox 100% on R/A; iw 14:11 BP 125 / 67; Pulse 75; Resp 16; Pulse Ox 100% on R/A; tp1 ED Course: 12:09 Patient arrived in ED. rg4 12:11 Ying Clifford F[facility]-C [facility] snw 12:11 Timmy Barrera MD is Attending Physician. snw 12:31 Triage completed. iw 12:32 Arm band placed on. iw 12:50 Maddison Sharp, IRENE is Primary Nurse. tp1 13:04 Patient has correct armband on for positive identification. Bed in low position. Call tp1 light in reach. 13:04 Warm blanket given. tp1 13:11 [place] Screen Profile Sent. tp1 13:18 No provider procedures requiring assistance completed. Patient did not have IV access tp1 during this emergency room visit. Administered Medications: 13:11 Drug: Decadron - Dexamethasone 10 mg {Note: administered orally .} Route: IVP; Site: tp1 Other; 14:07 Follow up: Response: No adverse reaction tp1 Medication: 13:18 VIS not applicable for this client. tp1 Outcome: 14:02 Discharge ordered by . anh 14:12 Discharged to home ambulatory. tp1 14:12 Condition: good 14:12 Discharge instructions given to patient, Instructed on discharge instructions, follow up and referral plans. medication usage, Demonstrated understanding of instructions, follow-up care, medications, Prescriptions given X 3. 14:12 Patient left the ED. tp1 Signatures: Ying Clifford, INDUSTRIAL ACCOUNTANT-C INDUSTRIAL ACCOUNTANT-Csnw Veronica Mcdermott RN RN Bridget Dumont rg4 Maddison Sharp RN RN tp1
--- NOTE | 2022-09-04 14:03 | EDPHYS ---
Physician Documentation [facility] Name: Genesis Hu Age: 32 yrs Sex: Female : 1990 Arrival Date: 09/04/2022 Time: 12:09 Bed 9 Private MD: ED Physician Timmy Barrera HPI: 09/04 14:46 This 32 yrs old Female presents to ER via Ambulatory with complaints of Sore Throat, snw Congestion. 14:46 The patient presents with sore throat. The patient describes throat pain as scratchy. snw Onset: The symptoms/episode began/occurred 2 week(s) ago, and became persistent. Severity of symptoms: At their worst the symptoms were moderate. Associated signs and symptoms: Pertinent positives: congestion. The patient has experienced similar episodes in the past, several times. The patient has been recently seen by a physician: with similar presenting complaints, and was referred to a specialist, pt has been on two antibiotics, takes carafate and omeprazole for ulcer. 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 - Social history:: Smoking status: Patient denies any tobacco usage or history of. ROS: 14:48 Constitutional: Negative for fever, chills, and weight loss, Eyes: Negative for injury, snw pain, redness, and discharge, Neck: Negative for injury, pain, and swelling, Cardiovascular: Negative for chest pain, palpitations, and edema, Respiratory: Negative for shortness of breath, cough, wheezing, and pleuritic chest pain, Abdomen/GI: Negative for abdominal pain, nausea, vomiting, diarrhea, and constipation, Back: Negative for injury and pain, : Negative for injury, bleeding, discharge, and swelling, MS/Extremity: Negative for injury and deformity, Skin: Negative for injury, rash, and discoloration, Neuro: Negative for headache, weakness, numbness, tingling, and seizure. 14:48 ENT: Positive for sinus congestion, sore throat. Exam: 14:48 Constitutional: This is a well developed, well nourished patient who is awake, alert, snw and in no acute distress. Head/Face: Normocephalic, atraumatic. Eyes: Pupils equal round and reactive to light, extra-ocular motions intact. Lids and lashes normal. Conjunctiva and sclera are non-icteric and not injected. Cornea within normal limits. Periorbital areas with no swelling, redness, or edema. Neck: Trachea midline, no thyromegaly or masses palpated, and no cervical lymphadenopathy. Supple, full range of motion without nuchal rigidity, or vertebral point tenderness. No Meningismus. Chest/axilla: Normal chest wall appearance and motion. Nontender with no deformity. No lesions are appreciated. Cardiovascular: Regular rate and rhythm with a normal S1 and S2. No gallops, murmurs, or rubs. Normal PMI, no JVD. No pulse deficits. Respiratory: Lungs have equal breath sounds bilaterally, clear to auscultation and percussion. No rales, rhonchi or wheezes noted. No increased work of breathing, no retractions or nasal flaring. Abdomen/GI: Soft, non-tender, with normal bowel sounds. No distension or tympany. No guarding or rebound. No evidence of tenderness throughout. Back: No spinal tenderness. No costovertebral tenderness. Full range of motion. Skin: Warm, dry with normal turgor. Normal color with no rashes, no lesions, and no evidence of cellulitis. MS/ Extremity: Pulses equal, no cyanosis. Neurovascular intact. Full, normal range of motion. Neuro: Awake and alert, GCS 15, oriented to person, place, time, and situation. Cranial nerves II-XII grossly intact. Motor strength 5/5 in all extremities. Sensory grossly intact. Cerebellar exam normal. Normal gait. Psych: Awake, alert, with orientation to person, place and time. Behavior, mood, and affect are within normal limits. 14:48 ENT: Posterior pharynx: Tonsils: opaque papules to posterior pharynx x 2 to left and 1 to right, minimal petechial area to uvula. Vital Signs: 12:37 BP 123 / 75; Pulse 75; Resp 16; Temp 99.0; Pulse Ox 100% on R/A; iw 14:11 BP 125 / 67; Pulse 75; Resp 16; Pulse Ox 100% on R/A; tp1 MDM: 12:34 Patient medically screened. snw 14:05 Data reviewed: vital signs, nurses notes. Data interpreted: Pulse oximetry: on room air snw is 100 %. Interpretation: normal. Counseling: I had a detailed discussion with the patient and/or guardian regarding: the historical points, exam findings, and any diagnostic results supporting the discharge/admit diagnosis, lab results, the need for outpatient follow up, for definitive care, to return to the emergency department if symptoms worsen or persist or if there are any questions or concerns that arise at home. Special discussion: Based on the history and exam findings, there is no indication for further emergent testing or inpatient evaluation. I discussed with the patient/guardian the need to see the primary care provider for further evaluation of the symptoms. 09/04 12:55 Order name: [place] Screen Profile; Complete Time: 13:39 snw Administered Medications: 13:11 Drug: Decadron - Dexamethasone 10 mg {Note: administered orally .} Route: IVP; Site: [facility] Other; 14:07 Follow up: Response: No adverse reaction tp1 Disposition: 16:34 Co-signature as Attending Physician, Timmy Barrera MD. rn Disposition Summary: 09/04/22 14:02 Discharge Ordered Location: Home snw Condition: Stable snw Diagnosis - Acute pharyngitis, unspecified snw Followup: snw - With: Emergency Department - When: As needed - Reason: Worsening of condition Followup: snw - With: Private Physician - When: 2 - 3 days - Reason: Recheck today's complaints, Continuance of care, Re-evaluation by your physician Discharge Instructions: - Discharge Summary Sheet snw - Pharyngitis snw Forms: - Medication Reconciliation Form snw - Thank You Letter snw - Antibiotic Education snw - Prescription Opioid Use snw Prescriptions: - Zyrtec 10 mg Oral Tablet - take 1 tablet by ORAL route once daily As needed; 20 tablet; Refills: 0, snw Product Selection Permitted - Prednisone 20 mg Oral Tablet - take 2 tablets by ORAL route once daily for 5 days; 10 tablet; Refills: 0, snw Product Selection Permitted - Pepcid 20 mg Oral Tablet - take 1 tablet by ORAL route once daily; 20 tablet; Refills: 0, Product snw Selection Permitted Signatures: Dispatcher [employer] Ying [place], SHAJI-C PIANO BENCH ASSEMBLER-Csnw Veronica Mcdermott, Timmy Ayala RN, MD MD rn Parker, Tiffany, RN RN tp1
[2022-09-04 15:09] VITALS: BP 123/75; TEMP 99; O2SAT 100
== END 2022-09-04 14:12 | disposition home or self-care (01) ==
LOC: ER 12:06
DX: J02.9 Acute pharyngitis, unspecified (principal); R09.81 Nasal congestion
CPT/HCPCS: 36415; 86308; 96374; 99283; J1100

== ENCOUNTER 2022-10-05 14:18 | Emergency (ER) | payer OTHER ==
--- OUTSIDE RECORDS SUMMARY | 2022-10-05 14:23 | XMS REPORT | Continuity of Care Document ---
:1990 Author Organization [facility] t Address [facility] [place] [address] Care Team Providers Name Role Phone Pcp, [...] ANJALI MERIDA Attending Clinician Unavailable Doctor Unassigned, [place] Attending Clinician Unavailable Jose David Valle MD [...] different from the original. 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 Medical records received. [facility]. DOS- 0. CC: 30 weeks w/ twins, vomiting black liquid. No evidence of hepatitis , pancreati tis, or liver dysfuncti on. Physiolog ic anemia. No UTI or ketonuria . 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 Send to [facility] at 16 weeks Pain Pain Disease [...] ers POLLEN INGREDI 1-31 ity of 00:00: [place] [address] Medical Branch Bee Propensi Active Unknown - Unive rs Pollen ty to See comments 12-01 ity of adverse 00:00: [place] reaction 00 Medical s Branch Social History Social Habit Start Date Stop Date Quantity Comments Source Alcohol intake 2022-05-10 2022-05-10 Current University 00:00:00 00:00:00 non-drinker of [facility] alcohol [place] (finding) Exposure to 2022-04-29 2022-05-09 Not sure [facility] SARS-CoV-2 00:00:00 21:36:00 [facility] (event) Branch Tobacco use and 2013-06-30 2013-06-30 Never used Universit y of exposure 00:00:00 00:00:00 [facility] Sex Ass[birth year] At [birth year] Universit y of 00:00:00 00:00:00 [facility] Smoking Status Start Date Stop Date Source Never smoker [facility] Medications Ordered Filled Start Stop Current Ordering Indication Dosage Frequency Signature Comments Components Source Medication Medication Date Date Medication? Clinician (SIG) Name Name dicyclomine No 20mg 20 mg, Uni vers (BENTYL) 05-10 Intramuscu ity of injection 04:15: 03:38 lar, ONCE, [place] 20 mg 00 :00 1 dose, On Medical 05/09/22 Branch at 2315, Routine dicyclomine Yes [id number] 20mg Take 1 Univers 20 mg -10 tablet by ity of tablet 00:00: mouth 4 [place] 00 (four) Medical times Branch daily as needed for Abdominal pain. ferrous 2021- No 1{tbl} Take 1 Unive rs sulfate/vit 05-09 tablet by it y of C/folic ac 23:56: 00:00 mouth [place] (FERROUS 54 :00 daily. Medical SULFATE-C-F Branch OLIC ACID ORAL) dicyclomine 2021- No [id number] 20mg Take 1 Univers 20 mg 05-09 tablet by ity of tablet 00:00: 00:00 mouth 4 [place] 00 :00 (four) Medical times [place] daily as needed for Abdominal pain. clarithromy Yes [id number] 500mg Take 1 Univers dominique 500 mg 2-23 tablet by ity of tablet 00:00: mouth [place] 00 every 12 Medical (twelve) Branch hours. pantoprazol Yes [id number] 40mg Take 1 Univers e 40 mg EC 2-23 tablet by ity of tablet 00:00: mouth [place] 00 daily. Medical Branch pantoprazol Yes [id number] 40mg Take 1 Univers e 40 mg EC 2-23 tablet by ity of tablet 00:00: mouth [place] 00 daily. Medical Branch clarithromy 2021- No [id number] 500mg Take 1 Univers dominique 500 mg 2-23 -09 tablet by ity of tablet 00:00: 00:00 mouth [place] 00 :00 every 12 Medical (twelve) Branch hours. sucralfate 2021- No [id number] 1g Take 1 Univers 1 gram 2-23 - tablet by ity of tablet 00:00: 04:59 mouth [place] 00 :00 before Medical meals and Branch at bedtime for 30 days. metroNIDAZO 2021- No [id number] 500mg Take 1 Univers LE 500 mg 2-23 -10 tablet by ity of tablet 00:00: 05:59 mouth [place] 00 :00 every 8 Medical (eight) Branch hours for 14 days. sucralfate 2021- No [id number] 1g Take 1 Univers 1 gram 2-23 - tablet by ity of tablet 00:00: 00:00 mouth [place] 00 :00 before Medical meals and Branch at bedtime. maalox:diph 2021- No 15mL 15 mL, Uni vers enhydrAMINE 2 02- Oral, ity of :lidocaine 21:30: 20:30 ONCE, 1 [place] as 2 % viscous 00 :00 dose, On Medi denzel 1:1:1 12/08/21 Branch ([facility]-MOUT at 1530, [facility]) Routine oral suspension 15 mL sucralfate Yes [id number] 1g Take 1 U nivers 1 gram 2-07 tablet by ity of tablet 00:00: mouth [place] 00 before Medical meals and Branch at bedtime. dicyclomine Yes [id number] 10mg Take 1 Univers (BENTYL) 10 2-07 capsule by it y of mg capsule 00:00: mouth [place] 00 every 8 Medical (eight) Branch hours as needed for Abdominal pain. ondansetron Yes [id number] 4mg Take 1 Univers 4 mg 2-07 tablet by ity of disintegrat 00:00: mouth [place] ing tablet 00 every 8 Medica l (eight) Branch hours as needed for Nausea and Vomiting (N/V). dicyclomine Yes [id number] 10mg Take 1 Univers (BENTYL) 10 2-07 capsule by it y of mg capsule 00:00: mouth [place] 00 every 8 Medical (eight) Branch hours as needed for Abdominal pain. ondansetron Yes [id number] 4mg Take 1 Univers 4 mg 2-07 tablet by ity of disintegrat 00:00: mouth [place] ing tablet 00 every 8 Medica l (eight) Branch hours as needed for Nausea and Vomiting (N/V). ondansetron Yes [id number] 4mg Take 1 Univers 4 mg 2-07 tablet by ity of disintegrat 00:00: mouth [place] ing tablet 00 every 8 Medica l (eight) Branch hours as needed for Nausea and Vomiting (N/V). dicyclomine 2021- No [id number] 10mg Take 1 Univers (BENTYL) 10 2-05 07-09 capsule by i ty of mg capsule 00:00: 00:00 mouth [place] 00 :00 every 8 Medical (eight) Branch hours as needed for Abdominal pain. omeprazole 2021- No [id number] 20mg Take 1 Univers 20 mg 2-10 capsule by ity of capsule 00:00: 05:59 mouth [place] 00 :00 daily for Medical 30 days. Branch omeprazole 2021- No [id number] 20mg Take 1 Univers 20 mg 2- 03-10 capsule by ity of capsule 00:00: 05:59 mouth [place] 00 :00 daily for Medical 30 days. Branch sucralfate 2021- No [id number] 1g Take 1 Univers 1 gram 2-05 02- tablet by ity of tablet 00:00: 00:00 mouth [place] 00 :00 before Medical meals and Branch at bedtime. bismuth-met 2021- No [id number] 3{capsu Take 3 Univers ronidazole- 2-07 - le} capsules ity of tetracyclin 00:00: 05:59 by mouth [place] e 00 :00 before Medical 140-125-125 meals and Bra nch mg per at bedtime capsule for 14 days. pantoprazol 2020-11 Yes [id number] 40mg Take 1 Univers e 2-13 tablet by ity of (PROTONIX) 00:00: mouth [place] 40 mg EC 00 daily. Medical tablet Branch pantoprazol 2020-11 Yes [id number] 40mg Take 1 Univers e 2-13 tablet by ity of (PROTONIX) 00:00: mouth [place] 40 mg EC 00 daily. Medical tablet Branch pantoprazol 2020-11- No [id number] 40mg Take 1 Univers e 2-13 - tablet by ity of (PROTONIX) 00:00: 00:00 mouth [place] 40 mg EC 00 :00 daily. Medical tablet Branch sucralfate 2020-11- No [id number] 1g Take 1 Univers 1 gram 2-13 -13 tablet by ity of tablet 00:00: 05:59 mouth [place] 00 :00 before Medical meals and Branch at bedtime for 30 days. dicyclomine 2020-11 Yes 10mg 10 mg, Univ ers (BENTYL) 11-23 Oral, QID, ity o f capsule 10 18:00: First dose [place] mg 00 on [facility] 09/23/21 Branch at 1200, Until Discontinu ed, Routine sucralfate 2020-11 Yes 1g 1 g, Oral, U nivers (CARAFATE) 11-23 AC+HS, ity of tablet 1 g 17:30: First dose [place] 00 on [facility] 09/23/21 Branch at 1130, Until Discontinu ed, Routine pantoprazol 2020-11- No 40mg 40 mg, Uni vers e 11-23 Slow IV ity of (PROTONIX) 15:45: 15:00 Push, [place] injection 00 :00 ONCE, 1 Medical 40 mg dose, On Branch [facility] 09/23/21 at 0945 dicyclomine 2020-11 Yes [id number] 10mg Take 1 Univers (BENTYL) 10 11-23 capsule by it y of mg capsule 00:00: mouth [place] 00 every 8 Medical (eight) Branch hours as needed for Abdominal pain. ondansetron 2020-11 Yes [id number] 4mg Take 1 Univers 4 mg 1-23 tablet by ity of disintegrat 00:00: mouth [place] ing tablet 00 every 8 Medica l (eight) Branch hours as needed for Nausea and Vomiting (N/V). sucralfate 2020-11 Yes [id number] 1g Take 1 U nivers 1 gram 1-23 tablet by ity of tablet 00:00: mouth [place] 00 before Medical meals and Branch at bedtime. dicyclomine 2020-11 Yes [id number] 10mg Take 1 Univers (BENTYL) 10 -23 capsule by it y of mg capsule 00:00: mouth [place] 00 every 8 Medical (eight) Branch hours as needed for Abdominal pain. ondansetron 2020-11 Yes [id number] 4mg Take 1 Univers 4 mg 1-23 tablet by ity of disintegrat 00:00: mouth [place] ing tablet 00 every 8 Medica l (eight) Branch hours as needed for Nausea and Vomiting (N/V). pantoprazol 2020-11 Yes [id number] 40mg Take 1 Univers e 1-23 tablet by ity of (PROTONIX) 00:00: mouth [place] 40 mg EC 00 daily. Medical tablet Branch dicyclomine 2020-11- No [id number] 10mg Take 1 Univers (BENTYL) 10 1-23 02-07 capsule by i ty of mg capsule 00:00: 00:00 mouth [place] 00 :00 every 8 Medical (eight) Branch hours as needed for Abdominal pain. ondansetron 2020-11- No [id number] 4mg Take 1 Univers 4 mg 1-23 02-07 tablet by ity of disintegrat 00:00: 00:00 [place] ing tablet 00 :00 every 8 Medica l (eight) Branch hours as needed for Nausea and Vomiting (N/V). sucralfate 2020-11- No [id number] 1g Take 1 Univers 1 gram 1-23 12-13 tablet by ity of tablet 00:00: 00:00 mouth [place] 00 :00 before Medical meals and Branch at bedtime. pantoprazol 2020-11- No [id number] 40mg Take 1 Univers e 1-23 12-13 tablet by ity of (PROTONIX) 00:00: 00:00 mouth [place] 40 mg EC 00 :00 daily. Medical tablet Branch ciprofloxac Yes [id number] 500mg Take 1 Univers in HCl 500 1-25 tablet by ity of mg tablet 00:00: mouth 2 [place] 00 (two) Medical times Branch daily. ciprofloxac 2020- No [id number] 500mg Take 1 Univers in HCl 500 1-25 12-13 tablet by ity of mg tablet 00:00: 00:00 mouth 2 [place] 00 :00 (two) Medical times Branch daily. ondansetron 2020- No [id number] 4mg Take 1 Univers (ZOFRAN 1-25 -23 tablet by ity of ODT) 4 mg 00:00: 00:00 mouth [place] disintegrat 00 :00 every 8 Medic al ing tablet (eight) Branch hours as needed for Nausea and Vomiting (N/V). cyclobenzap 2019-11 Yes [id number] 10mg Take 1 Univers rine 10 mg 1-11 tablet by ity of tablet 00:00: mouth 3 00 (three) Medical times Branch daily. cyclobenzap 2019-11 Yes [id number] 10mg Take 1 Univers rine 10 mg 1-11 tablet by ity of tablet 00:00: mouth 3 (three) Medical times Branch daily. cyclobenzap 2019-11 Yes [id number] 10mg Take 1 Univers rine 10 mg 1-11 tablet by ity of tablet 00:00: mouth 3 00 (three) Medical times Branch daily. cyclobenzap 2019-11 Yes [id number] 10mg Take 1 Univers rine 10 mg 1-11 tablet by ity of tablet 00:00: mouth 3 00 (three) Medical times Branch daily. ibuprofen 2019-11 Yes [id number] 600mg Take 1 Univers 600 mg 1-11 tablet by ity of tablet 00:00: mouth [place] 00 every 6 Medical (six) Branch hours as needed for Pain (scale 4-6). cyclobenzap 2019-11 Yes [id number] 10mg Take 1 Univers rine 10 mg 1-11 tablet by ity of tablet 00:00: mouth 3 00 (three) Medical times Branch daily. ibuprofen 2019-11- No [id number] 600mg Take 1 Univers 600 mg 1-11 [...] Branch OLIC ACID ORAL) bromphenira 2020-0 Yes [id number] 5mL Take 5 mL Univers mine-pseudo 4-04 by mouth 4 it y of ephedrine-D 00:00: (four) [place] M (BROMFED 00 times Medical DM) 2-30-10 daily as Bran ch mg/5 mL needed for syrup Congestion /Allergies or Cough. bromphenira 2020-0 Yes [id number] 5mL Take 5 mL Univers mine-pseudo 4-04 by mouth 4 it y of ephedrine-D 00:00: (four) [place] M (BROMFED 00 times Medical DM) 2-30-10 daily as Bran ch mg/5 mL needed for syrup Congestion /Allergies or Cough. bromphenira 2020-0 Yes [id number] 5mL Take 5 mL Univers mine-pseudo 4-04 by mouth 4 it y of ephedrine-D 00:00: (four) [place] M (BROMFED 00 times Medical DM) 2-30-10 daily as Bran ch mg/5 mL needed for syrup Congestion /Allergies or Cough. methylPREDN 2020-0 Yes [id number] Take by Univers ISolone 4 4-04 mouth ity of mg tablets 00:00: SEE-INSTRU [place] 00 CTIONS. Medical follow Branch package directions levoFLOXaci 2020-0 Yes [id number] 500mg Take 1 Univers n 4-04 tablet by ity of (LEVAQUIN) 00:00: mouth [place] 500 mg 00 every 24 Medical tablet (twenty-fo Branch ur) hours. bromphenira 2020-0 Yes [id number] 5mL Take 5 mL Univers mine-pseudo 4-04 by mouth 4 it y of ephedrine-D 00:00: (four) [place] M (BROMFED 00 times Medical DM) 2-30-10 daily as Bran ch mg/5 mL needed for syrup Congestion /Allergies or Cough. bromphenira 2020-0 2021- No [id number] 5mL Take 5 mL Univers mine-pseudo 4-04 07-09 by mouth 4 i ty of ephedrine-D 00:00: 00:00 (four) [place] as M (BROMFED 00 :00 times Medical DM) 2-30-10 daily as Bran ch mg/5 mL needed for syrup Congestion /Allergies or Cough. methylPREDN 2019-0 2020- No [id number] Take by Univers ISolone 4 4-04 12-13 mouth ity of mg tablets 00:00: 00:00 SEE-INSTRU [place] 00 :00 CTIONS. Medical follow Branch package directions levoFLOXaci 2020-0 2020- No [id number] 500mg Take 1 Univers n 4-04 12-13 tablet by ity of (LEVAQUIN) 00:00: 00:00 mouth [place] 500 mg 00 :00 every 24 Medical tablet (twenty-fo Branch ur) hours. Immunizations Ordered Filled Immunization Date Status Comments [facility] e Immunization Name Name Td 2016-04-30 Completed University of 00:00:00 [facility] Td 2016-04-30 Completed University of 00:00:00 [facility] Td 2016-04-30 Completed University of 00:00:00 [facility] Td 2016-04-30 Completed University of 00:00:00 [facility] Td 2016-04-30 Completed University of 00:00:00 [facility] Rubella 2010-04-22 Completed University of 00:00:00 [facility] Rubella 2010-04-22 Completed University of 00:00:00 [facility] Rubella 2010-04-22 Completed University of 00:00:00 [facility] Branch Rubella 2010-04-22 Completed University of 00:00:00 [place] [facility] Rubella 2010-04-22 Completed University of 00:00:00 [place] [facility] Td 2006-06-30 Completed University of 00:00:00 [place] [facility] Td 2006-06-30 Completed University of 00:00:00 [place] [facility] Td 2006-06-30 Completed University of 00:00:00 [place] [facility] Td 2006-06-30 Completed University of 00:00:00 [place] [facility] Td 2006-06-30 Completed University of 00:00:00 [facility] Branch Vital Signs Vital Name Observation Time Observation Value Comments Source Systolic blood 2022-05-10 05:14:00 125 mm[Hg] Univer sity of pressure [facility] Diastolic blood 2022-05-10 05:14:00 81 mm[Hg] Unive rsity of [facility] Heart rate 2022-05-10 05:14:00 62 /min [facility] acute hospital Respiratory rate 2022-05-10 05:14:00 17 /min [facility] Oxygen saturation in 2022-05-10 05:14:00 99 /min [facility] Arterial blood by [facility] Pulse oximetry [place] Body temperature 2022-05-10 02:44:00 36.44 [place] [facility] Body height 2022-05-10 02:44:00 167.6 cm [facility] acute hospital Body weight 2022-05-10 02:44:00 103.828 kg General acute hospital BMI 2022-05-10 02:44:00 36.95 kg/m2 General acute hospital Systolic blood 2021-12-24 17:26:00 147 mm[Hg] Univer sity of pressure [facility] Diastolic blood 2021-12-24 17:26:00 80 mm[Hg] Unive rsity of pressure [facility] Heart rate 2021-12-24 17:26:00 71 /min [facility] acute hospital Body temperature 2021-12-24 17:26:00 36.17 [place] [facility] Res[facility] rate 2021-12-24 17:26:00 18 /min [facility] Body weight 2021-12-24 17:26:00 86.183 [...] 98 /min University of Arterial blood by [facility] Pulse oximetry Branch Systolic blood 2021-10-13 [...] 98 /min University of Arterial blood by [facility] denzel Pulse oximetry Branch Systolic blood 2021-09-23 16:00:00 128 mm[Hg] Univer sity of pressure [place] [facility] Diastolic blood 2021-09-23 16:00:00 79 mm[Hg] [facility] of pressure [facility] Heart rate 2021-09-23 16:00:00 79 /min General acute hospital Body temperature 2021-09-23 16:00:00 36.72 [place] [facility] Oxygen saturation in 2021-09-23 16:00:00 100 /min [facility] Arterial blood by [facility] Pulse oximetry Branch Respiratory rate 2021-09-23 14:25:00 18 /min [facility] Body height 2021-09-23 14:25:00 170.2 cm General acute hospital Body weight 2021-09-23 14:25:00 86.183 kg General acute hospital BMI 2021-09-23 14:25:00 29.76 kg/m2 General acute hospital Procedures Procedure Date / Time Performed Performing Clinician Sourc e LIPASE 2022-05-10 03:37:00 Farzaneh Bo [facility] COMP. METABOLIC PANEL 2022-05-10 03:37:00 Farzaneh Bo [facility] ([id number]) [facility] CBC WITH DIFF 2022-05-10 03:37:00 Farzaneh Bo [facility] POCT TEST 2022-05-10 02:49:00 Farzaneh Bo [facility] URINALYSIS 2022-05-10 02:48:00 Farzaneh Bo [facility] NOTICE OF PRIVACY 2022-05-10 02:33:25 Doctor Unassigned, No [facility] CONSENT/REFUSAL FOR 2022-05-10 02:31:34 Doctor Unassigned, No Un [facility] [place] DIAGNOSIS AND Name Medical Branch TREATMENT CONSENT/REFUSAL FOR 2021-12-24 17:15:06 Doctor Unassigned, No [facility] [place] DIAGNOSIS AND Name Medical Branch TREATMENT NOTICE OF PRIVACY 2021-12-08 18:35:32 [facility], [facility] CONSENT/REFUSAL FOR 2021-12-08 18:35:08 Doctor Unassigned, No [facility] [place] DIAGNOSIS AND Name Medical Branch TREATMENT ASSIGNMENT OF BENEFITS 2021-10-13 13:51:35 Doctor Unassigned, No [facility] Name Medical Branch CONSENT/REFUSAL FOR 2021-10-13 13:36:21 Doctor Unassigned, No [facility] Medical Branch TREATMENT COMP. METABOLIC PANEL 2021-09-23 15:35:00 [facility]ridhar [facility] ([id number] Medical Branch LIPASE 2021-09-23 14:59:00 Singer [facility] CBC WITH DIFF 2021-09-23 14:59:00 Mata, [facility] CONSENT/REFUSAL FOR 2021-09-23 14:17:56 Doctor Unassigned, No [facility] Name Medical Branch TREATMENT Encounters Start End Encounter Admission Attending Care Care Encounter Source Date/Time Date/Time Type Type Clinicians Facility Department ID 2022-05-09 2022-05-10 Emergency [facility] [id number] Univers 21:49:00 00:20:00 FARZANEH busby [facility] 2022-05-09 2022-05-10 Emergency [facility] [id number] Univers 21:49:00 00:20:00 Farzaenh [place] [id number] [facility] [id number] [facility] [id number] [address] 2021-12-24 2021-12-24 Emergency [facility] [id number] Univers 11:28:00 13:33:00 JAYY busby [facility] 2021-12-24 2021-12-24 Emergency [facility] [id number] Univers 11:28:00 13:33:00 Jayy [place] [id number] [facility] [id number] [facility] [id number] [address] 2021-12-08 2021-12-08 Emergency [facility] [id number] Univers 12:45:00 14:51:00 SRIDHAR kamari [facility] 2021-12-08 2021-12-08 Emergency [facility] [id number] Univers 12:45:00 14:51:00 Sridhar [place] [id number] i ty of [place] [id number] [facility] [id number] [address] 2021-10-13 2021-10-13 Emergency X [facility] ERT [id number] Univers 07:44:00 07:58:00 LATHA itkamari [facility] 2021-10-13 2021-10-13 Emergency [facility] [id number] Univers 07:44:00 07:58:00 Latha [place] [id number] [facility] 4.[address] [place] [id number] 2021-09-23 2021-09-23 Emergency X [facility] ERT [id number] Univers 08:30:00 10:37:00 [facility] 2021-09-23 2021-09-23 [facility] [id number] Univers 08:30:00 10:37:00 Sridhar [place] [id number] i ty of [place] [address]7.[address] [place] [id number] 2020-11-25 2020-11-25 Emergency Kyra Medeiros [facility] [id number] 15:24:00 20:37:00 Nat Owens [id number] [place] [address] [place] [address] [id number] [facility] 2020-11-25 2020-11-25 Emergency X [facility] ERT [id number] Univers 15:14:00 15:14:00 ity [facility] 2020-10-31 2020-10-31 Emergency Jack Brower [facility] [id number] 09:18:00 12:22:00 Gaby [place] [id number] [place] [address] [place] [address] [id number] 082020-10-31 2020-10-31 Emergency X JACK BROWER [facility] ERT [id number] Univers 09:18:00 09:18:00 ity of [facility] 2020-09-11 2020-09-11 Emergency Kyra Medeiros [facility] [id number] 14:32:00 16:08:00 Nat [place] [id number] [place] 4.2.7.2.686 [place] [id number] 2020-09-11 2020-09-11 Emergency X Kyra MEDEIROS [facility] ERT [id number] Univers 14:32:00 14:32:00 ity of [facility] 2020-02-03 2020-02-03 Emergency Fuad [facility] [id number] 17:08:08 18:20:00 Anjali [place] [id number] [place] 4.2.7.2.686 [place] [id number] 2020-02-03 2020-02-03 Emergency X FUAD [facility] ERT [id number] Univers 17:00:00 17:00:00 ANJALI ity [facility] 2020-02-03 2020-02-03 Orders Doctor DAVID [id number] 00:00:00 00:00:00 Only Unassigned, ANGIE [id number] [place] [facility] 4.2.7.2.686 [id number] 2020-01-10 2020-01-11 Emergency [facility] [id number] 23:46:02 01:01:00 Serena [id number] [place] 4.2.7.2.686 [place] [id number] 2020-01-10 2020-01-10 Emergency X [facility] ERT [id number] Univers 23:02:00 23:02:00 ity of [facility] 2019-12-18 2019-12-18 Emergency X Kyra MEDEIROS [facility] ERT [id number] Univers 17:24:37 18:57:00 ity of [facility] 2019-12-18 2019-12-18 Emergency Kyra Medeiros [facility] [id number] 17:24:37 18:57:00 Nat Owens [id number] [place] 4.2.7.2.686 [place] [id number] 2019-12-18 2019-12-18 Orders Doctor DAVID [id number] 00:00:00 00:00:00 Only Unassigned, ANGIE [id number] [place] [facility] 4.2.7.2.686 [id number] 2019-06-29 2019-06-29 Emergency Jayes, [facility] [id number] 02:13:29 04:06:00 Jose David Owens [id number] [place] 4.2.7.2.686 [place] [id number] [id number] Results Test Description Test Time Test Comments Results Result Comments Source COMP. METABOLIC PANEL (90106) 2022-05-10 04:28:49 Test Item Value Reference Range Interpretation Comme nts NA (test code = 1497256849) 138 mmol/L 135-145 K (test code = 5692070567) 4.2 mmol/L 3.5-5.0 CL (test code = 3718225932) 104 mmol/L 98-108 CO2 TOTAL (test code = 25 mmol/L 23-31 1969252803) AGAP (test code = 5683362775) 2-16 BUN (test code = 2742439561) 9 mg/dL 7-23 GLUCOSE (test code = 9991512936) 103 mg/dL 70-110 CREATININE (test code = 0.78 mg/dL 0.50-1.04 1075512914) TOTAL BILI (test code = 0.3 mg/dL 0.1-1.9 2640438326) CALCIUM (test code = 5658321895) 9.4 mg/dL 8.6-10.6 T PROTEIN (test code = 7.1 g/dL 6.3-8.2 1409810940) ALBUMIN (test code = 6947088776) 4.4 g/dL 3.5-5.0 ALK PHOS (test code = 4665562039) 55 U/L 34-122 ALTv (test code = 1742-6) 25 U/L 5-35 AST(SGOT) (test code = 23 U/L 13-40 [id number]) eGFR (test code = 7408138903) mL/min/1.73m2 JASMYN (test code = JASMYN) Association [...] or urine or abnormalities in imaging tests). [facility]29 Test Item Value Reference Range Interpretation Comments LIPASE (test code = 5810302385) 58 U/L 0-220 Lab Interpretation (test code = Normal 44426-6) [facility] WITH [id number] 03:54:04 Test Item Value Reference Range Interpretation Comments WBC (test code = See_Comment [Automated 5944-2) message] The sy stem which generated this [...] RDW-SD (test code = 46.1 fL 39.0-49.9 98605-9) RDW-CV (test code = 16.5 % 12.0-15.5 H 788-0) PLT (test code = See_Comment H [Automated 777-3) message] The sy stem which generated this result transmitted reference range : 166 - 358 10*3/ ?L. The reference r juliano was not used to interpret this result as normal/abnormal . MPV (test code = 10.0 fL 9.5-12.9 45222-2) NRBC/100 WBC (test See_Comment [Automat ed code = 8754862141) message] The system which generated this result transmitted reference range : 0.0 - 10.0 /100 WBCs. The refer ence range was not u sed to interpret th is result as normal/abnormal . NRBC x10^3 (test code <0.01 See_Comment [Auto mated = 7269445547) message] The s ystem which generated this result transmitted reference range : 10*3/?L. The reference range was not used to interpret this result as normal/abnormal . GRAN MAT (NEUT) % 57.9 % (test code = 770-8) IMM GRAN % (test code 0.10 % = 1001956419) LYMPH % (test code = 31.1 % 736-9) MONO % (test code = 7.2 % 5905-5) EOS % (test code = 3.4 % 713-8) BASO % (test code = 0.3 % 706-2) GRAN MAT x10^3(ANC) 4.08 10*3/uL 1.88-7.09 (test code = 4389429237) IMM GRAN x10^3 (test <0.03 0.00-0.06 code = 8364661513) LYMPH x10^3 (test code 2.19 10*3/uL 1.32-3.29 = 731-0) MONO x10^3 (test code 0.51 10*3/uL 0.33-0.92 = 742-7) EOS x10^3 (test code = 0.24 10*3/uL 0.03-0.39 711-2) BASO x10^3 (test code <0.03 0.01-0.07 = 704-7) Lab Interpretation Abnormal (test code = 18395-5) [id number] 02:49:00 Test Item Value Reference Range Interpretation Comments POCT PREG (test code = 1605) Negative On board controls acceptable with Positive C Line (test code = 3574) POCT PREG LOT # (test code = HCG [id number] [id number]) POCT PREG TEST DATE (test 08/31/2023 code = 3576) Lab Interpretation (test code = Normal 56586-4) [facility]. METABOLIC PANEL (00055)2021-09-23 16:10:10 Test Item Value Reference Range Interpretation Comments NA (test code = 135 mmol/L 135-145 2984407941) K (test code = 4.5 mmol/L 3.5-5.0 1705153700) CL (test code = 101 mmol/L 98-108 9419201816) CO2 TOTAL (test code 28 mmol/L 23-31 = 3018953389) AGAP (test code = 2-16 2138489483) BUN (test code = 19 mg/dL 7-23 0636129873) GLUCOSE (test code = 94 mg/dL 70-110 7309208513) CREATININE (test code 0.83 mg/dL 0.50-1.04 = 4673260343) TOTAL BILI (test code 0.5 mg/dL 0.1-1.1 = 5451715627) CALCIUM (test code = 9.9 mg/dL 8.6-10.6 1744162766) T PROTEIN (test code 7.6 g/dL 6.3-8.2 = 3921589272) ALBUMIN (test code = 4.5 g/dL 3.5-5.0 7847293268) ALK PHOS (test code = 52 U/L 34-122 9434642882) ALTv (test code = 15 U/L 5-35 1742-6) AST(SGOT) (test code 21 U/L 13-40 = 5900143747) eGFR (test code = mL/min/1.73m2 7358836330) JASMYN (test code = JASMYN) Association of [...] or urine or abnormalities in imaging tests). [facility] 15:52:35 Test Item Value Reference Range Interpretation Comments LIPASE (test code = 2659524562) 72 U/L 0-220 Lab Interpretation (test code = Normal 17736-3) [facility] WITH [id number] 15:37:27 Test Item Value Reference Range Interpretation [...] RDW-SD (test code = 43.4 fL 39.0-49.9 04583-5) RDW-CV (test code = 14.0 % 12.0-15.5 788-0) PLT (test code = See_Comment H [Automated 777-3) message] The sy stem which generated this result transmitted reference range : 166 - 358 10*3/ ?L. The reference r juliano was not used to interpret this result as normal/abnormal . MPV (test code = 10.4 fL 9.5-12.9 40104-1) NRBC/100 WBC (test See_Comment [Automat ed code = 3096890171) message] The system which generated this result transmitted reference range : 0.0 - 10.0 /100 WBCs. The refer ence range was not u sed to interpret th is result as normal/abnormal . NRBC x10^3 (test code <0.01 See_Comment [Auto mated = 9149213671) message] The s ystem which generated this result transmitted reference range : 10*3/?L. The reference range was not used to interpret this result as normal/abnormal . GRAN MAT (NEUT) % 60.5 % (test code = 770-8) IMM GRAN % (test code 0.30 % = 4711700561) LYMPH % (test code = 28.4 % 736-9) MONO % (test code = 6.4 % 5905-5) EOS % (test code = 3.6 % 713-8) BASO % (test code = 0.8 % 706-2) GRAN MAT x10^3(ANC) 3.71 10*3/uL 1.88-7.09 (test code = 5579268324) IMM GRAN x10^3 (test <0.03 0.00-0.06 code = 1847682104) LYMPH x10^3 (test code 1.74 10*3/uL 1.32-3.29 = 731-0) MONO x10^3 (test code 0.39 10*3/uL 0.33-0.92 = 742-7) EOS x10^3 (test code = 0.22 10*3/uL 0.03-0.39 711-2) BASO x10^3 (test code 0.05 10*3/uL 0.01-0.07 = 704-7) Lab Interpretation Abnormal (test code = 38293-2) [facility]"
[2022-10-05] MEDS ORDERED: MAGNES/ALUMIN/SIMET 30ML UCUP ONE (15:19)
[2022-10-05] MEDS ORDERED: LIDOCAINE VISCOUS 2% SOLN 15 ML UDC ONE (15:19)
--- NOTE | 2022-10-05 16:46 | ER ---
Nurse's Notes [facility] Name: Genesis Hu Age: 32 yrs Sex: Female : 1990 Arrival Date: 10/05/2022 Time: 14:23 Bed IW1 Private MD: Diagnosis: Acute pharyngitis, unspecified Presentation: 10/05 15:13 Chief complaint: Patient states: Sore throat x 1 week, hx of recurrent infections, jl7 haven't been able to follow up with ENT. Coronavirus screen: At this time, the client does not indicate any symptoms associated with coronavirus-19. Ebola Screen: No symptoms or risks identified at this time. Initial Sepsis Screen: Does the patient meet any 2 criteria? No. Patient's initial sepsis screen is negative. Does the patient have a suspected source of infection? No. Patient's initial sepsis screen is negative. Risk Assessment: Do you want to hurt yourself or someone else? Patient reports no desire to harm self or others. Onset of symptoms was September 28, 2022. 15:13 Method Of Arrival: [facility] 15:13 Acuity: KRISTIN 4 jl7 Triage Assessment: 15:23 General: Appears in no apparent distress. uncomfortable, Behavior is calm, cooperative, jl7 appropriate for age. Pain: Complains of pain in sore throat. EENT: Throat has patchy exudate. Historical: - Allergies: 15:23 Amoxicillin; jl7 15:23 Bleach (Sodium Hypochlorite); jl7 15:23 Latex, Natural Rubber; jl7 15:23 PENICILLINS; jl7 - PMHx: 15:23 hiatal hernia; PCOS; peptic ulcer; jl7 - PSHx: 15:23 section; tubal ligation; jl7 - Immunization history:: Adult Immunizations unknown. - Social history:: Smoking status: unknown. Screenin:03 Abuse screen: Denies threats or abuse. Denies injuries from another. Nutritional ss screening: No deficits noted. Tuberculosis screening: Never had TB. Fall Risk None identified. Assessment: 17:03 General: Appears in no apparent distress. comfortable, Behavior is calm, cooperative. ss Neuro: Level of Consciousness is awake, alert, obeys commands, Oriented to person, place, time, situation. Respiratory: Airway is patent Respiratory effort is even, unlabored, Respiratory pattern is regular, symmetrical. Derm: Skin is intact, is healthy with good turgor, Skin is pink, warm \T\ dry. normal. Vital Signs: 15:13 BP 123 / 86; Pulse 86; Resp 17; Temp 97.8; Pulse Ox 100% ; Weight 99.79 kg; Height 5 jl7 ft. 5 in. (165.10 cm); Pain 10/10; 15:13 Body Mass Index 36.61 (99.79 kg, 165.10 cm) jl7 ED Course: 14:23 Patient arrived in ED. am2 14:31 [facility] Bates [facility]C [facility] kb 14:31 Alverto Ferrer MD is Attending Physician. kb 15:15 Triage completed. jl7 15:22 Hilario Umanzor, RN is Primary Nurse. jl7 15:23 Arm band placed on right wrist. jl7 17:03 Patient has correct armband on for positive identification. Bed in low position. ss 17:03 No provider procedures requiring assistance completed. Patient did not have IV access ss during this emergency room visit. Administered Medications: 15:23 Drug: GI Cocktail without - (Maalox Suspension 30 ml, Lidocaine Liquid 2 % 15 jl7 ml) Route: PO; 17:06 Follow up: Response: No adverse reaction ss Medication: 17:03 VIS not applicable for this client. ss Outcome: 16:46 Discharge ordered by MD. kb 17:03 Discharged to home ambulatory. ss 17:03 Condition: good 17:03 Discharge instructions given to patient, Instructed on discharge instructions, follow up and referral plans. Demonstrated understanding of instructions, follow-up care. 17:06 Patient left the ED. ss Signatures: Charity Bates FNP-C FNP-Teresa Bryan RN RN Hilario Umanzor, IRENE RN jl7 Jill Lombardi am2
--- NOTE | 2022-10-05 16:46 | EDPHYS ---
Physician Documentation [facility] Name: Genesis Hu Age: 32 yrs Sex: Female : 1990 Arrival Date: 10/05/2022 Time: 14:23 Bed IW1 Private MD: ED Physician Alverto Ferrer HPI: 10/05 20:11 This 32 yrs old Female presents to ER via Ambulatory with complaints of Fever, Sore kb Throat. 20:11 The patient has not recently seen a physician. kb 20:12 The patient presents with sore throat. The patient describes throat pain as constant. kb Onset: The symptoms/episode began/occurred 1 week(s) ago. Severity of symptoms: At their worst the symptoms were moderate, in the emergency department the symptoms are unchanged. Modifying factors: The symptoms are alleviated by nothing, the symptoms are aggravated by swallowing. Associated signs and symptoms: Pertinent positives: fever, Sore throat. The patient has experienced similar episodes in the past. Pt reports she was diagnosed with strep 3 weeks ago, prescribed a course of zithromax that resolved the symptoms for one week, then the pain started again. reports sore throat and fever for one week. Historical: - Allergies: 15:23 Amoxicillin; jl7 15:23 Bleach (Sodium Hypochlorite); jl7 15:23 Latex, Natural Rubber; jl7 15:23 PENICILLINS; jl7 - PMHx: 15:23 hiatal hernia; PCOS; peptic ulcer; jl7 - PSHx: 15:23 section; tubal ligation; jl7 - Immunization history:: Adult Immunizations unknown. - Social history:: Smoking status: unknown. ROS: 20:11 Respiratory: Negative for shortness of breath, cough, wheezing, and pleuritic chest kb pain. 20:11 Constitutional: Positive for fever. 20:11 ENT: Positive for sore throat. 20:11 All other systems are negative. Exam: 20:10 Constitutional: This is a well developed, well nourished patient who is awake, alert, kb and in no acute distress. Head/Face: Normocephalic, atraumatic. Cardiovascular: Regular rate and rhythm with a normal S1 and S2. No gallops, murmurs, or rubs. No pulse deficits. Respiratory: Respirations even and unlabored. No increased work of breathing. Talking in full sentences Skin: Warm, dry with normal turgor. Normal color. MS/ Extremity: Pulses equal, no cyanosis. Neurovascular intact. Full, normal range of motion. Neuro: Awake and alert, GCS 15, oriented to person, place, time, and situation. Moves all extremities. Normal gait. Psych: Awake, alert, with orientation to person, place and time. Behavior, mood, and affect are within normal limits. 20:10 ENT: Posterior pharynx: Airway: normal, no evidence of obstruction, Tonsils: are normal in appearance, Uvula: normal, midline, swelling, is not appreciated, erythema, that is mild. Vital Signs: 15:13 BP 123 / 86; Pulse 86; Resp 17; Temp 97.8; Pulse Ox 100% ; Weight 99.79 kg; Height 5 jl7 ft. 5 in. (165.10 cm); Pain 10/10; 15:13 Body Mass Index 36.61 (99.79 kg, 165.10 cm) jl7 MDM: 15:14 Patient medically screened. kb 20:02 Data reviewed: vital signs, nurses notes. Data interpreted: Pulse oximetry: on room air kb is 100 %. Interpretation: normal. 20:10 Counseling: I had a detailed discussion with the patient and/or guardian regarding: the kb historical points, exam findings, and any diagnostic results supporting the discharge/admit diagnosis, lab results, the need for outpatient follow up, an ENT specialist, to return to the emergency department if symptoms worsen or persist or if there are any questions or concerns that arise at home. 20:13 ED course: No swelling to tonsils noted. No abscess appreciated. kb 10/05 15:14 Order name: Strep; Complete Time: 16:04 kb 10/05 16:04 Order name: Throat Culture EDMS Administered Medications: 15:23 Drug: GI Cocktail without - (Maalox Suspension 30 ml, Lidocaine Liquid 2 % 15 jl7 ml) Route: PO; 17:06 Follow up: Response: No adverse reaction ss Disposition: 10/06 10:49 Co-signature as Attending Physician, Alverto Ferrer MD I agree with the assessment and kdr plan of care. Disposition Summary: 10/05/22 16:46 Discharge Ordered Location: Home kb Condition: Stable kb Diagnosis - Acute pharyngitis, unspecified kb Followup: kb - With: Emergency Department - When: As needed - Reason: Worsening of condition Followup: kb - With: Private Physician - When: 2 - 3 days - Reason: Recheck today's complaints, Continuance of care, Re-evaluation by your physician Discharge Instructions: - Discharge Summary Sheet kb - Sore Throat kb - Pharyngitis, [id number] kb Forms: - Medication Reconciliation Form kb - Work release form kb - Thank You Letter kb - Antibiotic Education kb - Prescription Opioid Use kb Signatures: Dispatcher [employer] EDMS Charity Bates, SENIOR DENTIST-C SENIOR DENTIST-Samib Alverto Ferrer MD MD kdr Leal, Jahala, RN RN jl7 Teresa Flowers RN ss
[2022-10-05 18:25] VITALS: BP 123/86; TEMP 97.8; O2SAT 100
== END 2022-10-05 17:06 | disposition home or self-care (01) ==
LOC: ER 14:18
DX: J02.9 Acute pharyngitis, unspecified (principal); R50.9 Fever, unspecified; Z88.0 Allergy status to penicillin; Z88.1 Allergy status to other antibiotic agents; Z91.040 Latex allergy status; Z91.048 Other nonmedicinal substance allergy status
CPT/HCPCS: 87070; 87081; 99283

== ENCOUNTER 2022-11-23 11:31 | Emergency (ER) | payer OTHER ==
--- OUTSIDE RECORDS SUMMARY | 2022-11-23 11:44 | XMS REPORT | Continuity of Care Document ---
:1990 Author Organization [facility] t Address [address] [place] [address] Care Team Providers Name Role Phone Pcp, [...] ANJALI MERIDA Attending Clinician Unavailable Doctor Unassigned, [place] Attending Clinician Unavailable Jose David Valle MD Attending Clinician Payers Payer Name Policy Type Policy Number Effective Date Expiration Date S hanane MEDICAID PENDING PENDING 2021 00:00:00 Problems Condition Condition Condition Status Onset Resolution Last Treating Co mments Source Name Details Category Date Date Treatment Clinician Date Abdominal Abdominal Disease Active Overview: Univers pain pain 07-28 Formattin ity of 00:00: g of this [place] note Medical might be Branch different from the original. 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 1 hr- 47 Immune to Immune to Disease Active Uni vers varicella varicella 07-05 ity of 00:00: [place] 00 Medical Branch High-risk High-risk Disease Active Overview: Univers 06-30 Formattin i ty of 00:00: g of this [place] 00 note Medical might be Branch different from the original. Medical records received. [facility]. DOS- 0. CC: 30 weeks w/ twins, vomiting black liquid. No evidence of hepatitis , pancreati tis, or liver dysfuncti on. Physiolog ic anemia. No UTI or ketonuria . 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 Send to [facility] at 16 weeks Pain Pain Disease [...] ers POLLEN INGREDI 1-31 ity of 00:00: [place] [address] Medical Branch Bee Propensi Active Unknown - Unive rs Pollen ty to See comments 12-01 ity of adverse 00:00: [place] reaction 00 Medical s Branch Social History Social Habit Start Date Stop Date Quantity Comments Source Alcohol intake 2022-05-10 2022-05-10 Current University 00:00:00 00:00:00 non-drinker of [facility] alcohol [place] (finding) Exposure to 2022-04-29 2022-05-09 Not sure [facility] SARS-CoV-2 00:00:00 21:36:00 [facility] (event) Branch Tobacco use and 2013-06-30 2013-06-30 Never used Universit y of exposure 00:00:00 00:00:00 [facility] Sex Ass[birth year] At [birth year] Universit y of 00:00:00 00:00:00 [facility] Smoking Status Start Date Stop Date Source Never smoker [facility] Medications Ordered Filled Start Stop Current Ordering Indication Dosage Frequency Signature Comments Components Source Medication Medication Date Date Medication? Clinician (SIG) Name Name dicyclomine No 20mg 20 mg, Uni vers (BENTYL) 05-10 Intramuscu ity of injection 04:15: 03:38 lar, ONCE, [place] 20 mg 00 :00 1 dose, On Medical 05/09/22 Branch at 2315, Routine dicyclomine Yes [id number] 20mg Take 1 Univers 20 mg -10 tablet by ity of tablet 00:00: mouth 4 [place] 00 (four) Medical times Branch daily as needed for Abdominal pain. ferrous 2021- No 1{tbl} Take 1 Unive rs sulfate/vit 05-09 tablet by it y of C/folic ac 23:56: 00:00 mouth [place] (FERROUS 54 :00 daily. Medical SULFATE-C-F Branch OLIC ACID ORAL) dicyclomine 2021- No [id number] 20mg Take 1 Univers 20 mg 05-09 tablet by ity of tablet 00:00: 00:00 mouth 4 [place] 00 :00 (four) Medical times [place] daily as needed for Abdominal pain. clarithromy Yes [id number] 500mg Take 1 Univers dominique 500 mg 2-23 tablet by ity of tablet 00:00: mouth [place] 00 every 12 Medical (twelve) Branch hours. pantoprazol Yes [id number] 40mg Take 1 Univers e 40 mg EC 2-23 tablet by ity of tablet 00:00: mouth [place] 00 daily. Medical Branch pantoprazol Yes [id number] 40mg Take 1 Univers e 40 mg EC 2-23 tablet by ity of tablet 00:00: mouth [place] 00 daily. Medical Branch clarithromy 2021- No [id number] 500mg Take 1 Univers dominique 500 mg 2-23 -09 tablet by ity of tablet 00:00: 00:00 mouth [place] 00 :00 every 12 Medical (twelve) Branch hours. sucralfate 2021- No [id number] 1g Take 1 Univers 1 gram 2-23 - tablet by ity of tablet 00:00: 04:59 mouth [place] 00 :00 before Medical meals and Branch at bedtime for 30 days. metroNIDAZO 2021- No [id number] 500mg Take 1 Univers LE 500 mg 2-23 -10 tablet by ity of tablet 00:00: 05:59 mouth [place] 00 :00 every 8 Medical (eight) Branch hours for 14 days. sucralfate 2021- No [id number] 1g Take 1 Univers 1 gram 2-23 - tablet by ity of tablet 00:00: 00:00 mouth [place] 00 :00 before Medical meals and Branch at bedtime. maalox:diph 2021- No 15mL 15 mL, Uni vers enhydrAMINE 2 02- Oral, ity of :lidocaine 21:30: 20:30 ONCE, 1 [place] as 2 % viscous 00 :00 dose, On Medi denzel 1:1:1 12/08/21 Branch ([facility]MOUT at 1530, [facility]) Routine oral suspension 15 mL sucralfate Yes [id number] 1g Take 1 U nivers 1 gram 2-07 tablet by ity of tablet 00:00: mouth [place] 00 before Medical meals and Branch at bedtime. dicyclomine Yes [id number] 10mg Take 1 Univers (BENTYL) 10 2-07 capsule by it y of mg capsule 00:00: mouth [place] 00 every 8 Medical (eight) Branch hours as needed for Abdominal pain. ondansetron Yes [id number] 4mg Take 1 Univers 4 mg 2-07 tablet by ity of disintegrat 00:00: mouth [place] ing tablet 00 every 8 Medica l (eight) Branch hours as needed for Nausea and Vomiting (N/V). dicyclomine Yes [id number] 10mg Take 1 Univers (BENTYL) 10 2-07 capsule by it y of mg capsule 00:00: mouth [place] 00 every 8 Medical (eight) Branch hours as needed for Abdominal pain. ondansetron Yes [id number] 4mg Take 1 Univers 4 mg 2-07 tablet by ity of disintegrat 00:00: mouth [place] ing tablet 00 every 8 Medica l (eight) Branch hours as needed for Nausea and Vomiting (N/V). ondansetron Yes [id number] 4mg Take 1 Univers 4 mg 2-07 tablet by ity of disintegrat 00:00: mouth [place] ing tablet 00 every 8 Medica l (eight) Branch hours as needed for Nausea and Vomiting (N/V). dicyclomine 2021- No [id number] 10mg Take 1 Univers (BENTYL) 10 2-05 07-09 capsule by i ty of mg capsule 00:00: 00:00 mouth [place] 00 :00 every 8 Medical (eight) Branch hours as needed for Abdominal pain. omeprazole 2021- No [id number] 20mg Take 1 Univers 20 mg 2-10 capsule by ity of capsule 00:00: 05:59 mouth [place] 00 :00 daily for Medical 30 days. Branch omeprazole 2021- No [id number] 20mg Take 1 Univers 20 mg 2- 03-10 capsule by ity of capsule 00:00: 05:59 mouth [place] 00 :00 daily for Medical 30 days. Branch sucralfate 2021- No [id number] 1g Take 1 Univers 1 gram 2-05 02- tablet by ity of tablet 00:00: 00:00 mouth [place] 00 :00 before Medical meals and Branch at bedtime. bismuth-met 2021- No [id number] 3{capsu Take 3 Univers ronidazole- 2-07 - le} capsules ity of tetracyclin 00:00: 05:59 by mouth [place] e 00 :00 before Medical 140-125-125 meals and Bra nch mg per at bedtime capsule for 14 days. pantoprazol 2020-11 Yes [id number] 40mg Take 1 Univers e 2-13 tablet by ity of (PROTONIX) 00:00: mouth [place] 40 mg EC 00 daily. Medical tablet Branch pantoprazol 2020-11 Yes [id number] 40mg Take 1 Univers e 2-13 tablet by ity of (PROTONIX) 00:00: mouth [place] 40 mg EC 00 daily. Medical tablet Branch pantoprazol 2020-11- No [id number] 40mg Take 1 Univers e 2-13 - tablet by ity of (PROTONIX) 00:00: 00:00 mouth [place] 40 mg EC 00 :00 daily. Medical tablet Branch sucralfate 2020-11- No [id number] 1g Take 1 Univers 1 gram 2-13 -13 tablet by ity of tablet 00:00: 05:59 mouth [place] 00 :00 before Medical meals and Branch at bedtime for 30 days. dicyclomine 2020-11 Yes 10mg 10 mg, Univ ers (BENTYL) 11-23 Oral, QID, ity o f capsule 10 18:00: First dose [place] mg 00 on [facility] 09/23/21 Branch at 1200, Until Discontinu ed, Routine sucralfate 2020-11 Yes 1g 1 g, Oral, U nivers (CARAFATE) 11-23 AC+HS, ity of tablet 1 g 17:30: First dose [place] 00 on [facility] 09/23/21 Branch at 1130, Until Discontinu ed, Routine pantoprazol 2020-11- No 40mg 40 mg, Uni vers e 11-23 Slow IV ity of (PROTONIX) 15:45: 15:00 Push, [place] injection 00 :00 ONCE, 1 Medical 40 mg dose, On Branch [facility] 09/23/21 at 0945 dicyclomine 2020-11 Yes [id number] 10mg Take 1 Univers (BENTYL) 10 11-23 capsule by it y of mg capsule 00:00: mouth [place] 00 every 8 Medical (eight) Branch hours as needed for Abdominal pain. ondansetron 2020-11 Yes [id number] 4mg Take 1 Univers 4 mg 1-23 tablet by ity of disintegrat 00:00: mouth [place] ing tablet 00 every 8 Medica l (eight) Branch hours as needed for Nausea and Vomiting (N/V). sucralfate 2020-11 Yes [id number] 1g Take 1 U nivers 1 gram 1-23 tablet by ity of tablet 00:00: mouth [place] 00 before Medical meals and Branch at bedtime. dicyclomine 2020-11 Yes [id number] 10mg Take 1 Univers (BENTYL) 10 -23 capsule by it y of mg capsule 00:00: mouth [place] 00 every 8 Medical (eight) Branch hours as needed for Abdominal pain. ondansetron 2020-11 Yes [id number] 4mg Take 1 Univers 4 mg 1-23 tablet by ity of disintegrat 00:00: mouth [place] ing tablet 00 every 8 Medica l (eight) Branch hours as needed for Nausea and Vomiting (N/V). pantoprazol 2020-11 Yes [id number] 40mg Take 1 Univers e 1-23 tablet by ity of (PROTONIX) 00:00: mouth [place] 40 mg EC 00 daily. Medical tablet Branch dicyclomine 2020-11- No [id number] 10mg Take 1 Univers (BENTYL) 10 1-23 02-07 capsule by i ty of mg capsule 00:00: 00:00 mouth [place] 00 :00 every 8 Medical (eight) Branch hours as needed for Abdominal pain. ondansetron 2020-11- No [id number] 4mg Take 1 Univers 4 mg 1-23 02-07 tablet by ity of disintegrat 00:00: 00:00 [place] ing tablet 00 :00 every 8 Medica l (eight) Branch hours as needed for Nausea and Vomiting (N/V). sucralfate 2020-11- No [id number] 1g Take 1 Univers 1 gram 1-23 12-13 tablet by ity of tablet 00:00: 00:00 mouth [place] 00 :00 before Medical meals and Branch at bedtime. pantoprazol 2020-11- No [id number] 40mg Take 1 Univers e 1-23 12-13 tablet by ity of (PROTONIX) 00:00: 00:00 mouth [place] 40 mg EC 00 :00 daily. Medical tablet Branch ciprofloxac Yes [id number] 500mg Take 1 Univers in HCl 500 1-25 tablet by ity of mg tablet 00:00: mouth 2 [place] 00 (two) Medical times Branch daily. ciprofloxac 2020- No [id number] 500mg Take 1 Univers in HCl 500 1-25 12-13 tablet by ity of mg tablet 00:00: 00:00 mouth 2 [place] 00 :00 (two) Medical times Branch daily. ondansetron 2020- No [id number] 4mg Take 1 Univers (ZOFRAN 1-25 -23 tablet by ity of ODT) 4 mg 00:00: 00:00 mouth [place] disintegrat 00 :00 every 8 Medic al ing tablet (eight) Branch hours as needed for Nausea and Vomiting (N/V). cyclobenzap 2019-11 Yes [id number] 10mg Take 1 Univers rine 10 mg 1-11 tablet by ity of tablet 00:00: mouth 3 00 (three) Medical times Branch daily. cyclobenzap 2019-11 Yes [id number] 10mg Take 1 Univers rine 10 mg 1-11 tablet by ity of tablet 00:00: mouth 3 (three) Medical times Branch daily. cyclobenzap 2019-11 Yes [id number] 10mg Take 1 Univers rine 10 mg 1-11 tablet by ity of tablet 00:00: mouth 3 00 (three) Medical times Branch daily. cyclobenzap 2019-11 Yes [id number] 10mg Take 1 Univers rine 10 mg 1-11 tablet by ity of tablet 00:00: mouth 3 00 (three) Medical times Branch daily. ibuprofen 2019-11 Yes [id number] 600mg Take 1 Univers 600 mg 1-11 tablet by ity of tablet 00:00: mouth [place] 00 every 6 Medical (six) Branch hours as needed for Pain (scale 4-6). cyclobenzap 2019-11 Yes [id number] 10mg Take 1 Univers rine 10 mg 1-11 tablet by ity of tablet 00:00: mouth 3 00 (three) Medical times Branch daily. ibuprofen 2019-11- No [id number] 600mg Take 1 Univers 600 mg 1-11 [...] Branch OLIC ACID ORAL) bromphenira 2020-0 Yes [id number] 5mL Take 5 mL Univers mine-pseudo 4-04 by mouth 4 it y of ephedrine-D 00:00: (four) [place] M (BROMFED 00 times Medical DM) 2-30-10 daily as Bran ch mg/5 mL needed for syrup Congestion /Allergies or Cough. bromphenira 2020-0 Yes [id number] 5mL Take 5 mL Univers mine-pseudo 4-04 by mouth 4 it y of ephedrine-D 00:00: (four) [place] (BROMFED 00 times Medical DM) 2-30-10 daily as Bran ch mg/5 mL needed for syrup Congestion /Allergies or Cough. bromphenira 2020-0 Yes [id number] 5mL Take 5 mL Univers mine-pseudo 4-04 by mouth 4 it y of ephedrine-D 00:00: (four[place] M (BROMFED 00 times Medical DM) 2-30-10 daily as Bran ch mg/5 mL needed for syrup Congestion /Allergies or Cough. methylPREDN 2020-0 Yes [id number] Take by Univers ISolone 4 4-04 mouth ity of mg tablets 00:00: SEE-INSTRU [place] 00 CTIONS. Medical follow Branch package directions levoFLOXaci 2020-0 Yes [id number] 500mg Take 1 Univers n 4-04 tablet by ity of (LEVAQUIN) 00:00: mouth [place] 500 mg 00 every 24 Medical tablet (twenty-fo Branch ur) hours. bromphenira 2020-0 Yes [id number] 5mL Take 5 mL Univers mine-pseudo 4-04 by mouth 4 it y of ephedrine-D 00:00: (four) [place] M (BROMFED 00 times Medical DM) 2-30-10 daily as Bran ch mg/5 mL needed for syrup Congestion /Allergies or Cough. bromphenira 2020-0 2021- No [id number] 5mL Take 5 mL Univers mine-pseudo 4-04 07-09 by mouth 4 i ty of ephedrine-D 00:00: 00:00 (four) [place] as M (BROMFED 00 :00 times Medical DM) 2-30-10 daily as Bran ch mg/5 mL needed for syrup Congestion /Allergies or Cough. methylPREDN 2019-0 2020- No [id number] Take by Univers ISolone 4 4-04 12-13 mouth ity of mg tablets 00:00: 00:00 SEE-INSTRU [place] 00 :00 CTIONS. Medical follow Branch package directions levoFLOXaci 2020-0 2020- No [id number] 500mg Take 1 Univers n 4-04 12-13 tablet by ity of (LEVAQUIN) 00:00: 00:00 mouth [place] 500 mg 00 :00 every 24 Medical tablet (twenty-fo Branch ur) hours. Immunizations Ordered Filled Immunization Date Status Comments [facility] e Immunization Name Name Td 2016-04-30 Completed University of 00:00:00 [facility] Td 2016-04-30 Completed University of 00:00:00 [facility] Td 2016-04-30 Completed University of 00:00:00 [facility] Td 2016-04-30 Completed University of 00:00:00 [facility] Td 2016-04-30 Completed University of 00:00:00 [facility] Rubella 2010-04-22 Completed University of 00:00:00 [facility] Rubella 2010-04-22 Completed University of 00:00:00 [facility] Rubella 2010-04-22 Completed University of 00:00:00 [facility] Branch Rubella 2010-04-22 Completed University of 00:00:00 [place] [facility] Rubella 2010-04-22 Completed University of 00:00:00 [place] [facility] Td 2006-06-30 Completed University of 00:00:00 [place] [facility] Td 2006-06-30 Completed University of 00:00:00 [place] [facility] Td 2006-06-30 Completed University of 00:00:00 [place] [facility] Td 2006-06-30 Completed University of 00:00:00 [place] [facility] Td 2006-06-30 Completed University of 00:00:00 [facility] Branch Vital Signs Vital Name Observation Time Observation Value Comments Source Systolic blood 2022-05-10 05:14:00 125 mm[Hg] Univer sity of pressure [facility] Diastolic blood 2022-05-10 05:14:00 81 mm[Hg] Unive rsity of [facility] Heart rate 2022-05-10 05:14:00 62 /min [facility] Respiratory rate 2022-05-10 05:14:00 17 /min [facility] Oxygen saturation in 2022-05-10 05:14:00 99 /min [facility] Arterial blood by [facility] Pulse oximetry [place] Body temperature 2022-05-10 02:44:00 36.44 Chelsea [facility] Body height 2022-05-10 02:44:00 167.6 cm [facility] Body weight 2022-05-10 02:44:00 103.828 kg [facility] BMI 2022-05-10 02:44:00 36.95 kg/m2 [facility] Systolic blood 2021-12-24 17:26:00 147 mm[Hg] Univer sity of pressure [facility] Diastolic blood 2021-12-24 17:26:00 80 mm[Hg] Unive rsity of pressure [facility] Heart rate 2021-12-24 17:26:00 71 /min [facility] Body temperature 2021-12-24 17:26:00 36.17 Chelsea [facility] 2021-12-24 17:26:00 18 /min [facility] Body weight 2021-12-24 17:26:00 86.183 kg Universi ty [facility] [place] [facility] BMI 2021-12-24 17:26:00 29.76 kg/m2 Universi ty of [place] [facility] Oxygen saturation in 2021-12-24 17:26:00 99 /min University of Arterial blood by [place] Medi denzel Pulse oximetry Branch Systolic blood 2021-12-08 18:45:00 131 mm[Hg] Univer sity of pressure [place] [facility] Diastolic blood 2021-12-08 18:45:00 91 mm[Hg] Unive rsity of pressure [place] [facility] Heart rate 2021-12-08 18:45:00 86 /min Universi ty of [place] [facility] Body temperature 2021-12-08 18:45:00 36.72 [place] Univ ersity of [place] [facility] Respiratory rate 2021-12-08 18:45:00 18 /min Univ ersity of [place] [facility] Body weight 2021-12-08 18:45:00 86.183 kg [facility]i ty [facility] [place] [facility] BMI 2021-12-08 18:45:00 29.76 kg/m2 [facility] [place] [facility] Oxygen saturation in 2021-12-08 18:45:00 98 /min University of Arterial blood by [facility] Pulse oximetry Branch Systolic blood 2021-10-13 13:42:00 123 mm[Hg] Univer sity of pressure [place] [facility] Diastolic blood 2021-10-13 13:42:00 78 mm[Hg] Unive rsity of pressure [place] [facility] Heart rate 2021-10-13 13:42:00 86 /min Universi ty of [place] [facility] Body temperature 2021-10-13 13:42:00 36.78 [place] Univ ersity [facility] [place] [facility] Respiratory rate 2021-10-13 13:42:00 18 /min Univ ersity of [place] [facility] Body weight 2021-10-13 13:42:00 86.183 kg [facility]i [facility] [place] [facility] BMI 2021-10-13 13:42:00 29.76 kg/m2 [facility] [place] [facility] Oxygen saturation in 2021-10-13 13:42:00 98 /min University of Arterial blood by [facility] denzel Pulse oximetry Branch Systolic blood 2021-09-23 16:00:00 128 mm[Hg] Univer sity of pressure [place] [facility] Diastolic blood 2021-09-23 16:00:00 79 mm[Hg] [facility] of pressure [facility] Heart rate 2021-09-23 16:00:00 79 /min [facility] Body temperature 2021-09-23 16:00:00 36.72 Chelsea [facility] Oxygen saturation in 2021-09-23 16:00:00 100 /min [facility] Arterial blood by [facility] Pulse oximetry Branch Respiratory rate 2021-09-23 14:25:00 18 /min [facility] Body height 2021-09-23 14:25:00 170.2 cm [facility] Body weight 2021-09-23 14:25:00 86.183 kg [facility] BMI 2021-09-23 14:25:00 29.76 kg/m2 [facility] Procedures Procedure Date / Time Performed Performing Clinician Sourc e LIPASE 2022-05-10 03:37:00 Farzaneh Bo [facility] COMP. METABOLIC PANEL 2022-05-10 03:37:00 Farzaneh Bo [facility] ([id number]) [facility] CBC WITH DIFF 2022-05-10 03:37:00 Farzaneh Bo [facility] POCT TEST 2022-05-10 02:49:00 Farzaneh Bo [facility] URINALYSIS 2022-05-10 02:48:00 Farzaneh Bo [facility] NOTICE OF PRIVACY 2022-05-10 02:33:25 [facility], [facility] CONS[facility]/REFUSAL FOR 2022-05-10 02:31:34 Doctor Unassigned, No Un iversity of [place] DIAGNOSIS AND Name Medical Branch TREATMENT CONSENT/REFUSAL FOR 2021-12-24 17:15:06 Doctor Unassigned, No Un iversity of [place] DIAGNOSIS AND Name Medical Branch TREATMENT NOTICE OF PRIVACY 2021-12-08 18:35:32 [facility]assigned, No [facility] CONSENT/REFUSAL FOR 2021-12-08 18:35:08 Doctor Unassigned, No Un iversity of [place] DIAGNOSIS AND Name Medical Branch TREATMENT ASSIGNMENT OF BENEFITS 2021-10-13 13:51:35 Doctor Unassigned, No [facility] Name Medical Branch CONSENT/REFUSAL FOR 2021-10-13 13:36:21 [facility] Branch TREATMENT COMP. METABOLIC PANEL 2021-09-23 15:35:00 [facility]ridhar [facility]ata [facility] ([id number] Medical Branch LIPASE 2021-09-23 14:59:00 Singer [facility] CBC WITH DIFF 2021-09-23 14:59:00 Mata, [facility] CONSENT/REFUSAL FOR 2021-09-23 14:17:56 Doctor [facility]igned, No [facility] AND Name Medical Branch TREATMENT Encounters Start End Encounter Admission Attending Care Care Encounter Source Date/Time Date/Time Type Type Clinicians Facility Department ID 2022-05-09 2022-05-10 [id number] Univers 21:49:00 00:20:00 FARZANEH busby [facility] 2022-05-09 2022-05-10 Emergency [facility] [id number] Univers 21:49:00 00:20:00 Farzaneh OWENS [id number] itkamari [facility] [id number] [facility] [id number] [address] 2021-12-24 2021-12-24 Emergency [facility] E[facility] [id number] Univers 11:28:00 13:33:00 JAYY busby [facility] 2021-12-24 2021-12-24 Emergency [facility] [id number] Univers 11:28:00 13:33:00 Jayy [place] [id number] i asael [facility] [id number] [facility] [id number] [address] 2021-12-08 2021-12-08 [facility] [id number] Univers 12:45:00 14:51:00 SRIDHAR kamari [facility] 2021-12-08 2021-12-08 Emergency [facility] [id number] Univers 12:45:00 14:51:00 Sridhar OW[place] [id number] i ty of [place] 4.2.7.2.686 [facility] [id number] [address] 2021-10-13 2021-10-13 Emergency [facility] ERT [id number] Univers 07:44:00 07:58:00 LATHA itkamari [facility] 2021-10-13 2021-10-13 Emergency [facility] [id number] Univers 07:44:00 07:58:00 Latha OWENS [id number] ity [facility] [id number] [place] [id number] 2021-09-23 2021-09-23 Emergency X [facility] ERT [id number] Univers 08:30:00 10:37:00 [facility] 2021-09-23 2021-09-23 [email or web address] [id number] Univers 08:30:00 10:37:00 Sridhar OW[place] [id number] i ty of [place] 4.2.7.[address] [place] [id number] 2020-11-25 2020-11-25 Emergency Kyra Medeiros [facility] [id number] 15:24:00 20:37:00 Nat [place] [id number] [place] [id number] [place] [address] [id number] [facility] 2020-11-25 2020-11-25 Emergency X [facility] ERT [id number] Univers 15:14:00 15:14:00 ity [facility] 2020-10-31 2020-10-31 Emergency Jack Brower [facility] [id number] 09:18:00 12:22:00 Gaby Owens [id number] [place] [id number] [place] [address] [id number] 082020-10-31 2020-10-31 Emergency X JACK BROWER [facility] ERT [id number] Univers 09:18:00 09:18:00 ity of [facility] 2020-09-11 2020-09-11 Emergency Kyra Medeiros [facility] [id number] 14:32:00 16:08:00 Nat [place] [id number] [place] [id number] [place] [id number] 2020-09-11 2020-09-11 Emergency X Kyra MEDEIROS [facility] ERT [id number] Univers 14:32:00 14:32:00 ity of [facility] 2020-02-03 2020-02-03 Emergency Fuad [facility] [id number] 17:08:08 18:20:00 Anjali [place] 350.1.13.10 [place] 4.2.7.2.686 [place] [id number] 2020-02-03 2020-02-03 Emergency X FUAD [facility] ERT [id number] Univers 17:00:00 17:00:00 ANJALI ity [facility] 2020-02-03 2020-02-03 Orders Doctor DAVID [id number] 00:00:00 00:00:00 Only Unassigned, ANGIE 350.1.13.10 [place] [facility] 4.2.7.2.686 [id number] 2020-01-10 2020-01-11 Emergency [facility] [id number] 23:46:02 01:01:00 Serena 350.1.13.10 [place] 4.2.7.2.686 [place] [id number] 2020-01-10 2020-01-10 Emergency X [facility] ERT [id number] Univers 23:02:00 23:02:00 ity of [facility] 2019-12-18 2019-12-18 Emergency X Kyra [facility] ERT [id number] Univers 17:24:37 18:57:00 ity of [facility] 2019-12-18 2019-12-18 Emergency Kyra Medeiros [facility] [id number] 17:24:37 18:57:00 Nat Owens 350.1.13.10 [place] 4.2.7.2.686 [place] [id number] 2019-12-18 2019-12-18 Orders Doctor DAVID [id number] 00:00:00 00:00:00 Only Unassigned, ANGIE 350.1.13.10 [place] [facility] 4.2.7.2.686 [id number] 2019-06-29 2019-06-29 Emergency Jayes, [facility] [id number] 02:13:29 04:06:00 Jose David Owens 350.1.13.10 [place] 4.2.7.2.686 [place] [id number] Results Test Description Test Time Test Comments Results Result Comments Source COMP. METABOLIC PANEL (71456) 2022-05-10 04:28:49 Test Item Value Reference Range Interpretation Comme nts NA (test code = 3215295343) 138 mmol/L 135-145 K (test code = 0599809411) 4.2 mmol/L 3.5-5.0 CL (test code = 7428001567) 104 mmol/L 98-108 CO2 TOTAL (test code = 25 mmol/L 23-31 8217252849) AGAP (test code = 2313658939) 2-16 BUN (test code = 3840854508) 9 mg/dL 7-23 GLUCOSE (test code = 9536137782) 103 mg/dL 70-110 CREATININE (test code = 0.78 mg/dL 0.50-1.04 5037770502) TOTAL BILI (test code = 0.3 mg/dL 0.1-1.9 5737633958) CALCIUM (test code = 1374703312) 9.4 mg/dL 8.6-10.6 T PROTEIN (test code = 7.1 g/dL 6.3-8.2 9496126602) ALBUMIN (test code = 7471991359) 4.4 g/dL 3.5-5.0 ALK PHOS (test code = 5765272220) 55 U/L 34-122 ALTv (test code = 1742-6) 25 U/L 5-35 AST(SGOT) (test code = 23 U/L 13-40 8286805344) eGFR (test code = 7392688144) mL/min/1.73m2 JASMYN (test code = JASMYN) Association [...] or urine or abnormalities in imaging tests). [facility] Test Item Value Reference Range Interpretation Comments LIPASE (test code = 7727953237) 58 U/L 0-220 Lab Interpretation (test code = Normal 01394-6) [facility] [id number] 03:54:04 Test Item Value Reference Range Interpretation Comments WBC (test code = See_Comment [Automated 5343-2) message] The sy stem which generated this [...] RDW-SD (test code = 46.1 fL 39.0-49.9 82206-2) RDW-CV (test code = 16.5 % 12.0-15.5 H 788-0) PLT (test code = See_Comment H [Automated 777-3) message] The sy stem which generated this result transmitted reference range : 166 - 358 10*3/ ?L. The reference r juliano was not used to interpret this result as normal/abnormal . MPV (test code = 10.0 fL 9.5-12.9 77206-4) NRBC/100 WBC (test See_Comment [Automat ed code = 1378977196) message] The system which generated this result transmitted reference range : 0.0 - 10.0 /100 WBCs. The refer ence range was not u sed to interpret th is result as normal/abnormal . NRBC x10^3 (test code <0.01 See_Comment [Auto mated = 6099925560) message] The s ystem which generated this result transmitted reference range : 10*3/?L. The reference range was not used to interpret this result as normal/abnormal . GRAN MAT (NEUT) % 57.9 % (test code = 770-8) IMM GRAN % (test code 0.10 % = 2819246123) LYMPH % (test code = 31.1 % 736-9) MONO % (test code = 7.2 % 5905-5) EOS % (test code = 3.4 % 713-8) BASO % (test code = 0.3 % 706-2) GRAN MAT x10^3(ANC) 4.08 10*3/uL 1.88-7.09 (test code = 6442319841) IMM GRAN x10^3 (test <0.03 0.00-0.06 code = 9362440831) LYMPH x10^3 (test code 2.19 10*3/uL 1.32-3.29 = 731-0) MONO x10^3 (test code 0.51 10*3/uL 0.33-0.92 = 742-7) EOS x10^3 (test code = 0.24 10*3/uL 0.03-0.39 711-2) BASO x10^3 (test code <0.03 0.01-0.07 = 704-7) Lab Interpretation Abnormal (test code = 33506-4) [facility] [id number] 02:49:00 Test Item Value Reference Range Interpretation Comments POCT PREG (test code = 1605) Negative On board controls acceptable with Positive C Line (test code = 3574) POCT PREG LOT # (test code = HCG [id number] [id number]) POCT PREG TEST DATE (test 08/31/2023 code = 3576) Lab Interpretation (test code = Normal 29697-3) [facility]. METABOLIC PANEL (08690)2021-09-23 16:10:10 Test Item Value Reference Range Interpretation Comments NA (test code = 135 mmol/L 135-145 4659251942) K (test code = 4.5 mmol/L 3.5-5.0 4937991278) CL (test code = 101 mmol/L 98-108 6728626029) CO2 TOTAL (test code 28 mmol/L 23-31 = 0373079440) AGAP (test code = 2-16 9286516424) BUN (test code = 19 mg/dL 7-23 7445445039) GLUCOSE (test code = 94 mg/dL 70-110 1024058443) CREATININE (test code 0.83 mg/dL 0.50-1.04 = 6313279747) TOTAL BILI (test code 0.5 mg/dL 0.1-1.1 = 5346192402) CALCIUM (test code = 9.9 mg/dL 8.6-10.6 3420224268) T PROTEIN (test code 7.6 g/dL 6.3-8.2 = 1544614755) ALBUMIN (test code = 4.5 g/dL 3.5-5.0 3568517753) ALK PHOS (test code = 52 U/L 34-122 0223037911) ALTv (test code = 15 U/L 5-35 1742-6) AST(SGOT) (test code 21 U/L 13-40 = 6924411411) eGFR (test code = mL/min/1.73m2 4464583265) JASMYN (test code = JASMYN) Association of [...] or urine or abnormalities in imaging tests). [facility] 15:52:35 Test Item Value Reference Range Interpretation Comments LIPASE (test code = 1846888643) 72 U/L 0-220 Lab Interpretation (test code = Normal 00767-4) [facility] WITH [id number] 15:37:27 Test Item Value Reference Range Interpretation [...] RDW-SD (test code = 43.4 fL 39.0-49.9 35740-5) RDW-CV (test code = 14.0 % 12.0-15.5 788-0) PLT (test code = See_Comment H [Automated 777-3) message] The sy stem which generated this result transmitted reference range : 166 - 358 10*3/ ?L. The reference r juliano was not used to interpret this result as normal/abnormal . MPV (test code = 10.4 fL 9.5-12.9 28209-0) NRBC/100 WBC (test See_Comment [Automat ed code = 4649878501) message] The system which generated this result transmitted reference range : 0.0 - 10.0 /100 WBCs. The refer ence range was not u sed to interpret th is result as normal/abnormal . NRBC x10^3 (test code <0.01 See_Comment [Auto mated = 2873384829) message] The s ystem which generated this result transmitted reference range : 10*3/?L. The reference range was not used to interpret this result as normal/abnormal . GRAN MAT (NEUT) % 60.5 % (test code = 770-8) IMM GRAN % (test code 0.30 % = 5974437478) LYMPH % (test code = 28.4 % 736-9) MONO % (test code = 6.4 % 5905-5) EOS % (test code = 3.6 % 713-8) BASO % (test code = 0.8 % 706-2) GRAN MAT x10^3(ANC) 3.71 10*3/uL 1.88-7.09 (test code = 0112664555) IMM GRAN x10^3 (test <0.03 0.00-0.06 code = 8238239416) LYMPH x10^3 (test code 1.74 10*3/uL 1.32-3.29 = 731-0) MONO x10^3 (test code 0.39 10*3/uL 0.33-0.92 = 742-7) EOS x10^3 (test code = 0.22 10*3/uL 0.03-0.39 711-2) BASO x10^3 (test code 0.05 10*3/uL 0.01-0.07 = 704-7) Lab Interpretation Abnormal (test code = 06139-7) [facility]"
[2022-11-23] MEDS ORDERED: HYDROCODONE/APAP 7.5/325 MG TAB ONE (12:28)
--- NOTE | 2022-11-23 12:33 | EDPHYS ---
Physician Documentation [facility] Name: Genesis Hu Age: 32 yrs Sex: Female : 1990 Arrival Date: 11/23/2022 Time: 11:35 Bed 25 Private MD: ED Physician Roland Us HPI: 11/23 12:22 This 32 yrs old Female presents to ER via Unassigned with complaints of Leg Pain. jr8 12:22 Onset: The symptoms/episode began/occurred gradually. Modifying factors: The symptoms jr8 are alleviated by nothing. the symptoms are aggravated by movement, weight bearing. Associated signs and symptoms: The patient has no apparent associated signs or symptoms. The patient has experienced similar episodes in the past, chronically. The patient has not recently seen a physician. This is a 32-year-old female patient that presented emergency room with right hip pain. Has been seen by orthopedics Dr. 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 Stated that she always has pain in the hip but that is much worse lately. Has been trying hxoh-dou-nllnwag medication without relief. Denies back pain or trauma.. 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 - Social history:: Smoking status: Patient denies any tobacco usage or history of. Patient/guardian denies using alcohol. ROS: 12:29 Eyes: Negative for injury, pain, redness, and discharge, ENT: Negative for injury, jr8 pain, and discharge, Neck: Negative for injury, pain, and swelling, Cardiovascular: Negative for chest pain, palpitations, and edema, Respiratory: Negative for shortness of breath, cough, wheezing, and pleuritic chest pain, Abdomen/GI: Negative for abdominal pain, nausea, vomiting, diarrhea, and constipation, Back: Negative for injury and pain, Skin: Negative for injury, rash, and discoloration, Neuro: Negative for headache, weakness, numbness, tingling, and seizure. 12:29 MS/extremity: Positive for pain. Exam: 12:29 Constitutional: This is a well developed, well nourished patient who is awake, alert, jr8 and in no acute distress. Cardiovascular: Regular rate and rhythm with a normal S1 and S2. No gallops, murmurs, or rubs. Normal PMI, no JVD. No pulse deficits. Respiratory: Lungs have equal breath sounds bilaterally, clear to auscultation and percussion. No rales, rhonchi or wheezes noted. No increased work of breathing, no retractions or nasal flaring. Abdomen/GI: Soft, non-tender, with normal bowel sounds. No distension or tympany. No guarding or rebound. No evidence of tenderness throughout. Back: No spinal tenderness. No costovertebral tenderness. Full range of motion. Skin: Warm, dry with normal turgor. Normal color with no rashes, no lesions, and no evidence of cellulitis. Neuro: Awake and alert, GCS 15, oriented to person, place, time, and situation. Motor strength 5/5 in all extremities. Sensory grossly intact. 12:29 Musculoskeletal/extremity: Extremities: grossly normal except: noted in the right hip: decreased ROM, pain, tenderness, Circulation is intact in all extremities. Sensation intact. Vital Signs: 12:27 BP 113 / 62; Pulse 86; Resp 18; Temp 97.9(O); Pulse Ox 97% on R/A; Weight 88.45 kg; ld1 Height 5 ft. 8 in. (172.72 cm); Pain 9/10; 12:27 Body Mass Index 29.65 (88.45 kg, 172.72 cm) ld1 MDM: 12:12 Patient medically screened. jr8 12:29 Data reviewed: vital signs, nurses notes, and as a result, I will discharge patient. I jr8 considered the following discharge prescriptions or medication management in the emergency department Medications were administered in the Emergency Department. See MAR. Test considered but Not performed: X-ray: right hip. Has previously been done and no new trauma . Care significantly affected by the following Social Determinants of Health: Poor access to healthcare and/or lack of insurance. Counseling: I had a detailed discussion with the patient and/or guardian regarding: the historical points, exam findings, and any diagnostic results supporting the discharge/admit diagnosis, the need for outpatient follow up, a orthopedic surgeon, to return to the emergency department if symptoms worsen or persist or if there are any questions or concerns that arise at home. ED course: Discussed with patient that we will treat her acute pain. Given her hydrocodone at the hospital or send her home on steroids, pain medicine, muscle relaxant. Needs to follow back up with Dr. Roberto for further consultation of her right hip pain. If worse in the meantime or has a change in symptoms come back for further evaluation. Otherwise hemodynamically stable and safe to go home at this time.. 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 Ok to have pain meds . jr8 Administered Medications: 12:33 Drug: [place] (HYDROcodone-acetaminophen) (7.5 mg-325 mg) 1 tabs Route: PO; ld1 Disposition: 19:17 Co-signature as Attending Physician, Roland Us DO I was immediately available on-site ms3 in the Emergency Department for consultation in the care of the patient. Disposition Summary: 11/23/22 12:32 Discharge Ordered Location: Home jr8 Problem: new jr8 Symptoms: have improved jr8 Condition: Stable jr8 Diagnosis - Pain in right hip jr8 Followup: jr8 - With: Eulogio Roberto MD - When: 2 - 3 days - Reason: Recheck today's complaints, Continuance of care, Re-evaluation by your physician Discharge Instructions: - Discharge Summary Sheet jr8 - Joint Pain jr8 - Arthritis jr8 - Hip Pain jr8 Forms: - Medication Reconciliation Form jr8 - Thank You Letter jr8 - Antibiotic Education jr8 - Prescription Opioid Use jr8 - Work release form ld1 Prescriptions: - Medrol ([place]) 4 mg Oral Tablets, Dose Pack - take 1 tablet by ORAL route as directed - follow package instructions; 1 jr8 packet; Refills: 0, Product Selection Permitted - methocarbamol 500 mg Oral Tablet - take 2 tablets by ORAL route 4 times per day As needed; 56 tablet; Refills: 0, jr8 Product Selection Permitted - Tylenol-Codeine #3 300 mg-30 mg Oral - take 2 tablet by ORAL route every 8 hours As needed; 18 tablet; Refills: 0, jr8 Product Selection Permitted Signatures: Yan Lyn PA PA jr8 Roland Us DO DO ms3 Alia Chang, RN RN ld1
--- NOTE | 2022-11-23 12:33 | ER ---
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 Coronavirus screen: At this time, the client does not indicate any symptoms associated with coronavirus-19. Ebola Screen: No symptoms or risks identified at this time. Initial Sepsis Screen: Does the patient meet any 2 criteria? No. Patient's initial sepsis screen is negative. Does the patient have a suspected source of infection? No. Patient's initial sepsis screen is negative. Risk Assessment: Do you want to hurt yourself or someone else? Patient reports no desire to harm self or others. Onset of symptoms was November 23, 2022 at 12:29. 12:27 Method Of Arrival: Ambulatory ld1 12:27 Acuity: KRISTIN 4 ld1 Triage Assessment: 12:29 General: Appears in no apparent distress. comfortable, Behavior is calm, cooperative, ld1 appropriate for age. Pain: Complains of pain in right hip Pain does not radiate. Pain currently is 9 out of 10 on a pain scale. Quality of pain is described as sharp, shooting, throbbing, Pain began suddenly. EENT: No signs and/or symptoms were reported regarding the EENT system. Neuro: Level of Consciousness is awake, alert, obeys commands, Oriented to person, place, time, situation. Cardiovascular: Capillary refill < 3 seconds Patient's skin is warm and dry. Rhythm is sinus rhythm. Respiratory: Airway is patent Respiratory effort is even, unlabored. GI: Abdomen is flat, non-distended. : No signs and/or symptoms were reported regarding the genitourinary system. Derm: No signs and/or symptoms reported regarding the dermatologic system. Musculoskeletal: No signs and/or symptoms reported regarding the musculoskeletal system. 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 - Social history:: Smoking status: Patient denies any tobacco usage or history of. Patient/guardian denies using alcohol. Screenin:30 [facility] ED Fall Risk Assessment (Adult) History of falling in the last 3 months, ld1 including since admission No falls in past 3 months (0 pts). Abuse screen: Denies threats or abuse. Denies injuries from another. Nutritional screening: No deficits noted. Tuberculosis screening: No symptoms or risk factors identified. Assessment: 12:30 Reassessment: See triage assessment. ld1 13:16 Reassessment: No changes from previously documented assessment. Patient and/or family ld1 updated on plan of care and expected duration. Pain level reassessed. Patient states feeling better. Vital Signs: 12:27 BP 113 / 62; Pulse 86; Resp 18; Temp 97.9(O); Pulse Ox 97% on R/A; Weight 88.45 kg; ld1 Height 5 ft. 8 in. (172.72 cm); Pain 9/10; 12:27 Body Mass Index 29.65 (88.45 kg, 172.72 cm) ld1 ED Course: 11:35 Patient arrived in ED. rg4 11:55 Yan Lyn PA [facility] jr8 11:55 Roland Us DO is Attending Physician. jr8 12:03 Alia Chang, IRENE is Primary Nurse. ld1 12:29 Triage completed. ld1 12:29 Arm band placed on right wrist. ld1 12:30 Patient has correct armband on for positive identification. Placed in gown. Bed in low ld1 position. Call light in reach. Side rails up X2. site monitor on. Pulse ox on. NIBP on. Door closed. Noise minimized. Warm blanket given. 12:30 No provider procedures requiring assistance completed. ld1 12:32 Eulogio Jasso MD is Referral Physician. jr8 13:17 Patient did not have IV access during this emergency room visit. ld1 Administered Medications: 12:33 Drug: [place] (HYDROcodone-acetaminophen) (7.5 mg-325 mg) 1 tabs Route: PO; ld1 Medication: 12:30 VIS not applicable for this client. ld1 Outcome: 12:32 Discharge ordered by . smith 13:16 Discharged to home ambulatory, with family. ld1 13:16 Condition: stable 13:16 Discharge instructions given to patient, Instructed on discharge instructions, follow up and referral plans. medication usage, Demonstrated understanding of instructions, follow-up care, medications, Prescriptions given X 3. 13:17 Patient left the ED. ld1 Signatures: Yan Lyn PA PA jr8 Garcia, Rubi 4 Alia Chang, RN RN ld1
[2022-11-23 14:12] VITALS: BP 113/62; TEMP 97.9; O2SAT 97
== END 2022-11-23 13:17 | disposition home or self-care (01) ==
LOC: ER 11:31
DX: M25.551 Pain in right hip (principal)
CPT/HCPCS: 99284

== ENCOUNTER 2022-12-30 08:53 | Emergency (ER) | payer OTHER ==
--- OUTSIDE RECORDS SUMMARY | 2022-12-30 08:58 | XMS REPORT | Continuity of Care Document ---
:1990 Author Organization [facility] t Address [address] [place] [address] Care Team Providers Name Role Phone Pcp, [...] ANJALI MERIDA Attending Clinician Unavailable Doctor Unassigned, [place] Attending Clinician Unavailable Jose David Valle MD [...] different from the original. 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 Medical records received. [facility]. DOS- 0. CC: 30 weeks w/ twins, vomiting black liquid. No evidence of hepatitis , pancreati tis, or liver dysfuncti on. Physiolog ic anemia. No UTI or ketonuria . 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 Send to [facility] at 16 weeks Pain Pain Disease Active Univers pelvic pelvic 06-30 ity of 00:00: [place] 00 Medical Branch Rubella Rubella Disease Active Univers immune immune 8 ity of 00:00: Medical Branch Allergies, Adverse [...] ers POLLEN INGREDI 1-31 ity of 00:00: [place] 00 Medical Branch Bee Propensi Active Unknown - Unive rs Pollen ty to See comments 12-01 ity of adverse 00:00: [place] reaction 00 Medical s Branch Social History Social Habit Start Date Stop Date Quantity Comments Source Alcohol intake 2022-05-10 2022-05-10 Current University 00:00:00 00:00:00 non-drinker of [facility] alcohol Branch (finding) Exposure to 2022-04-29 2022-05-09 Not sure [facility] SARS-CoV-2 00:00:00 21:36:00 [facility] (event) Branch Tobacco use and 2013-06-30 2013-06-30 Never used Universit y of exposure 00:00:00 00:00:00 [facility] Sex [birth year] At [birth year] Universit y of 00:00:00 00:00:00 [facility] Smoking Status Start Date Stop Date [...] 05/09/22 Branch at 2315, Routine dicyclomine Yes [id number] 20mg Take 1 Univers 20 mg -10 tablet by ity of tablet 00:00: mouth 4 [place] 00 (four) Medical times Branch daily as needed for Abdominal pain. ferrous 2021- No 1{tbl} Take 1 Unive rs sulfate/vit 05-09 tablet by it y of C/folic ac 23:56: 00:00 mouth [place] (FERROUS 54 :00 daily. Medical SULFATE-C-F Branch OLIC ACID ORAL) dicyclomine 2021- No [id number] 20mg Take 1 Univers 20 mg 05-09 tablet by ity of tablet 00:00: 00:00 mouth 4 [place] 00 :00 (four) Medical times [place] daily as needed for Abdominal pain. clarithromy 2022-0 Yes [id number] 500mg Take 1 Univers dominique 500 mg 2-23 tablet by ity of tablet 00:00: mouth [place] 00 every 12 Medical (twelve) Branch hours. pantoprazol Yes [id number] 40mg Take 1 Univers e 40 mg EC 2-23 tablet by ity of tablet 00:00: mouth [place] 00 daily. Medical Branch pantoprazol Yes [id number] 40mg Take 1 Univers e 40 mg EC 2-23 tablet by ity of tablet 00:00: mouth [place] 00 daily. Medical Branch clarithromy 2021- No [id number] 500mg Take 1 Univers dominique 500 mg 2-23 07-09 tablet by ity of tablet 00:00: 00:00 mouth [place] 00 :00 every 12 Medical (twelve) Branch hours. sucralfate 2021- No [id number] 1g Take 1 Univers 1 gram 2-23 - tablet by ity of tablet 00:00: 04:59 mouth [place] 00 :00 before Medical meals and Branch at bedtime for 30 days. metroNIDAZO 2021- No [id number] 500mg Take 1 Univers LE 500 mg 2-23 03-10 tablet by ity of tablet 00:00: 05:59 mouth [place] 00 :00 every 8 Medical (eight) Branch hours for 14 days. sucralfate 2021- No [id number] 1g Take 1 Univers 1 gram 2-23 - tablet by ity of tablet 00:00: 00:00 mouth [place] 00 :00 before Medical meals and Branch at bedtime. maalox:diph 2021- No 15mL 15 mL, Uni vers enhydrAMINE 2- 02- Oral, ity of :lidocaine 21:30: 20:30 ONCE, 1 [place] as 2 % viscous 00 :00 dose, On Medi denzel 1:1:1 12/08/21 Branch (FIRST-MOUT at 1530, [facility]) Routine oral suspension 15 mL sucralfate Yes [id number] 1g Take 1 U nivers 1 gram 2-07 tablet by ity of tablet 00:00: mouth [place] 00 before Medical meals and Branch at bedtime. dicyclomine Yes [id number] 10mg Take 1 Univers (BENTYL) 10 2-07 capsule by it y of mg capsule 00:00: mouth [place] 00 every 8 Medical (eight) Branch hours as needed for Abdominal pain. ondansetron Yes [id number] 4mg Take 1 Univers 4 mg 2-07 tablet by ity of disintegrat 00:00: mouth [place] ing tablet 00 every 8 Medica l (eight) Branch hours as needed for Nausea and Vomiting (N/V). dicyclomine Yes [id number] 10mg Take 1 Univers (BENTYL) 10 2-07 capsule by it y of mg capsule 00:00: mouth [place] 00 every 8 Medical (eight) Branch hours as needed for Abdominal pain. ondansetron Yes [id number] 4mg Take 1 Univers 4 mg 2-07 tablet by ity of disintegrat 00:00: mouth [place] ing tablet 00 every 8 Medica l (eight) Branch hours as needed for Nausea and Vomiting (N/V). ondansetron Yes [id number] 4mg Take 1 Univers 4 mg 2-07 tablet by ity of disintegrat 00:00: mouth [place] ing tablet 00 every 8 Medica l (eight) Branch hours as needed for Nausea and Vomiting (N/V). dicyclomine 2021- No [id number] 10mg Take 1 Univers (BENTYL) 10 2-05 07-09 capsule by i ty of mg capsule 00:00: 00:00 mouth [place] 00 :00 every 8 Medical (eight) Branch hours as needed for Abdominal pain. omeprazole 2021- No [id number] 20mg Take 1 Univers 20 mg 2-05 03-10 capsule by ity of capsule 00:00: 05:59 mouth [place] 00 :00 daily for Medical 30 days. Branch omeprazole 2021- No [id number] 20mg Take 1 Univers 20 mg 2- 03-10 capsule by ity of capsule 00:00: 05:59 mouth [place] 00 :00 daily for Medical 30 days. Branch sucralfate 2021- No [id number] 1g Take 1 Univers 1 gram 2-05 02- tablet by ity of tablet 00:00: 00:00 mouth [place] 00 :00 before Medical meals and Branch at bedtime. bismuth-met 2021- No [id number] 3{capsu Take 3 Univers ronidazole- 2-07 - le} capsules ity of tetracyclin 00:00: 05:59 by mouth [place] 00 :00 before Medical 140-125-125 meals and Bra nch mg per at bedtime capsule for 14 days. pantoprazol 2020-11 Yes [id number] 40mg Take 1 Univers e 2-13 tablet by ity of (PROTONIX) 00:00: mouth [place] 40 mg EC 00 daily. Medical tablet Branch pantoprazol 2020-11 Yes [id number] 40mg Take 1 Univers e 2-13 tablet by ity of (PROTONIX) 00:00: mouth [place] 40 mg EC 00 daily. Medical tablet Branch pantoprazol 2020-11- No [id number] 40mg Take 1 Univers e 2-13 -23 tablet by ity of (PROTONIX) 00:00: 00:00 mouth [place] 40 mg EC 00 :00 daily. Medical tablet Branch sucralfate 2020-11- No [id number] 1g Take 1 Univers 1 gram 2-13 -13 tablet by ity of tablet 00:00: 05:59 mouth [place] 00 :00 before Medical meals and Branch at bedtime for 30 days. dicyclomine 2020-11 Yes 10mg 10 mg, Univ ers (BENTYL) 11-23 Oral, QID, ity o f capsule 10 18:00: First dose [place] mg 00 on [facility] 09/23/21 Branch at 1200, Until Discontinu ed, Routine sucralfate 2020-11 Yes 1g 1 g, Oral, U nivers (CARAFATE) 11-23 AC+HS, ity of tablet 1 g 17:30: First dose [place] 00 on [facility] 09/23/21 Branch at 1130, Until Discontinu ed, Routine pantoprazol 2020-11- No 40mg 40 mg, Uni vers e 11-23 Slow IV ity of (PROTONIX) 15:45: 15:00 Push, [place] injection 00 :00 ONCE, 1 Medical 40 mg dose, On Branch [facility] 09/23/21 at 0945 dicyclomine 2020-11 Yes [id number] 10mg Take 1 Univers (BENTYL) 10 - capsule by it y of mg capsule 00:00: mouth [place] 00 every 8 Medical (eight) Branch hours as needed for Abdominal pain. ondansetron 2020-11 Yes [id number] 4mg Take 1 Univers 4 mg 1-23 tablet by ity of disintegrat 00:00: mouth [place] ing tablet 00 every 8 Medica l (eight) Branch hours as needed for Nausea and Vomiting (N/V). sucralfate 2020-11 Yes [id number] 1g Take 1 U nivers 1 gram 1-23 tablet by ity of tablet 00:00: mouth [place] 00 before Medical meals and Branch at bedtime. dicyclomine 2020-11 Yes [id number] 10mg Take 1 Univers (BENTYL) 10 -23 capsule by it y of mg capsule 00:00: mouth [place] 00 every 8 Medical (eight) Branch hours as needed for Abdominal pain. ondansetron 2020-11 Yes [id number] 4mg Take 1 Univers 4 mg 1-23 tablet by ity of disintegrat 00:00: mouth [place] ing tablet 00 every 8 Medica l (eight) Branch hours as needed for Nausea and Vomiting (N/V). pantoprazol 2020-11 Yes [id number] 40mg Take 1 Univers e 1-23 tablet by ity of (PROTONIX) 00:00: mouth [place] 40 mg EC 00 daily. Medical tablet Branch dicyclomine 2020-11- No [id number] 10mg Take 1 Univers (BENTYL) 10 1-23 02-07 capsule by i ty of mg capsule 00:00: 00:00 mouth [place] 00 :00 every 8 Medical (eight) Branch hours as needed for Abdominal pain. ondansetron 2020-11- No [id number] 4mg Take 1 Univers 4 mg 1-23 02-07 tablet by ity of disintegrat 00:00: 00:00 mouth [place] ing tablet 00 :00 every 8 Medica l (eight) Branch hours as needed for Nausea and Vomiting (N/V). sucralfate 2020-11- No [id number] 1g Take 1 Univers 1 gram 1-23 12-13 tablet by ity of tablet 00:00: 00:00 mouth [place] 00 :00 before Medical meals and Branch at bedtime. pantoprazol 2020-11- No [id number] 40mg Take 1 Univers e 1-23 12-13 tablet by ity of (PROTONIX) 00:00: 00:00 mouth [place] 40 mg EC 00 :00 daily. Medical tablet Branch ciprofloxac Yes [id number] 500mg Take 1 Univers in HCl 500 1-25 tablet by ity of mg tablet 00:00: mouth 2 [place] 00 (two) Medical times Branch daily. ciprofloxac 2020- No [id number] 500mg Take 1 Univers in HCl 500 1-25 12-13 tablet by ity of mg tablet 00:00: 00:00 mouth 2 [place] 00 :00 (two) Medical times Branch daily. ondansetron 2020- No [id number] 4mg Take 1 Univers (ZOFRAN 1-25 -23 tablet by ity of ODT) 4 mg 00:00: 00:00 mouth [place] disintegrat 00 :00 every 8 Medic al ing tablet (eight) Branch hours as needed for Nausea and Vomiting (N/V). cyclobenzap 2019-11 Yes [id number] 10mg Take 1 Univers rine 10 mg 1-11 tablet by ity of tablet 00:00: mouth 3 00 (three) Medical times Branch daily. cyclobenzap 2019-11 Yes [id number] 10mg Take 1 Univers rine 10 mg 1-11 tablet by ity of tablet 00:00: mouth 3 (three) Medical times Branch daily. cyclobenzap 2019-11 Yes [id number] 10mg Take 1 Univers rine 10 mg 1-11 tablet by ity of tablet 00:00: mouth 3 00 (three) Medical times Branch daily. cyclobenzap 2019-11 Yes [id number] 10mg Take 1 Univers rine 10 mg 1-11 tablet by ity of tablet 00:00: mouth 3 00 (three) Medical times Branch daily. ibuprofen 2019-11 Yes [id number] 600mg Take 1 Univers 600 mg 1-11 tablet by ity of tablet 00:00: mouth [place] 00 every 6 Medical (six) Branch hours as needed for Pain (scale 4-6). cyclobenzap 2019-11 Yes [id number] 10mg Take 1 Univers rine 10 mg 1-11 tablet by ity of tablet 00:00: mouth 3 00 (three) Medical times Branch daily. ibuprofen 2019-11- No [id number] 600mg Take 1 Univers 600 mg 1-11 [...] Branch OLIC ACID ORAL) bromphenira 2020-0 Yes [id number] 5mL Take 5 mL Univers mine-pseudo 4-04 by mouth 4 it y of ephedrine-D 00:00: (four) [place] M (BROMFED 00 times Medical DM) 2-30-10 daily as Bran ch mg/5 mL needed for syrup Congestion /Allergies or Cough. bromphenira 2020-0 Yes [id number] 5mL Take 5 mL Univers mine-pseudo 4-04 by mouth 4 it y of ephedrine-D 00:00: (four) [place] M (BROMFED 00 times Medical DM) 2-30-10 daily as Bran ch mg/5 mL needed for syrup Congestion /Allergies or Cough. bromphenira 2020-0 Yes [id number] 5mL Take 5 mL Univers mine-pseudo 4-04 by mouth 4 it y of ephedrine-D 00:00: (four) [place] M (BROMFED 00 times Medical DM) 2-30-10 daily as Bran ch mg/5 mL needed for syrup Congestion /Allergies or Cough. methylPREDN 2020-0 Yes [id number] Take by Univers ISolone 4 4-04 mouth ity of mg tablets 00:00: SEE-INSTRU [place] 00 CTIONS. Medical follow Branch package directions levoFLOXaci 2020-0 Yes [id number] 500mg Take 1 Univers n 4-04 tablet by ity of (LEVAQUIN) 00:00: mouth [place] 500 mg 00 every 24 Medical tablet (twenty- Branch ur) hours. bromphenira 2020-0 Yes [id number] 5mL Take 5 mL Univers mine-pseudo 4-04 by mouth 4 it y of ephedrine-D 00:00: (four) [place] M (BROMFED 00 times Medical DM) 2-30-10 daily as Bran ch mg/5 mL needed for syrup Congestion /Allergies or Cough. bromphenira 2020-0 2021- No [id number] 5mL Take 5 mL Univers mine-pseudo 4-04 07-09 by mouth 4 i ty of ephedrine-D 00:00: 00:00 (four) [place] as M (BROMFED 00 :00 times Medical DM) 2-30-10 daily as Bran ch mg/5 mL needed for syrup Congestion /Allergies or Cough. methylPREDN 2019-2020- No [id number] Take by Univers ISolone 4 4-04 12-13 mouth ity of mg tablets 00:00: 00:00 SEE-INSTRU [place] 00 :00 CTIONS. Medical follow Branch package directions levoFLOXaci 2020-0 2020- No [id number] 500mg Take 1 Univers n 4-04 12-13 tablet by ity of (LEVAQUIN) 00:00: 00:00 mouth [place] 500 mg 00 :00 every 24 Medical tablet ([facility] Branch ur) hours. Immunizations Ordered Filled Immunization Date Status Comments [facility] e Immunization Name Name Td 2016-04-30 Completed University of 00:00:00 [facility] Td 2016-04-30 Completed University of 00:00:00 [facility] Td 2016-04-30 Completed University of 00:00:00 [facility] Td 2016-04-30 Completed University of 00:00:00 [facility] Td 2016-04-30 Completed University of 00:00:00 [facility] Rubella 2010-04-22 Completed University of 00:00:00 [facility] Rubella 2010-04-22 Completed of 00:00:00 [facility] Rubella 2010-04-22 Completed University of 00:00:00 [facility] Branch Rubella 2010-04-22 Completed [...] Branch Td 2006-06-30 Completed University of 00:00:00 [facility] Branch Vital Signs Vital Name Observation Time Observation Value Comments Source Systolic blood 2022-05-10 05:14:00 125 mm[Hg] Univer sity of pressure [facility] Diastolic blood 2022-05-10 05:14:00 81 mm[Hg] Unive rsity of [facility] Heart rate 2022-05-10 05:14:00 62 /min [facility] Respiratory rate 2022-05-10 05:14:00 17 /min [facility] Oxygen saturation in 2022-05-10 05:14:00 99 /min [facility] Arterial blood by [facility] Pulse oximetry [place] Body temperature 2022-05-10 02:44:00 36.44 Chelsea [facility] Body height 2022-05-10 02:44:00 167.6 cm [facility] Body weight 2022-05-10 02:44:00 103.828 kg [facility] BMI 2022-05-10 02:44:00 36.95 kg/m2 [facility] Systolic blood 2021-12-24 17:26:00 147 mm[Hg] Univer sity of pressure [facility] Diastolic blood 2021-12-24 17:26:00 80 mm[Hg] Unive rsity of pressure [facility] Heart rate 2021-12-24 17:26:00 71 /min [facility] Body temperature 2021-12-24 17:26:00 36.17 Chelsea [facility] 2021-12-24 17:26:00 18 /min [facility] Body weight 2021-12-24 17:26:00 86.183 kg Universi ty of [place] [facility] BMI 2021-12-24 17:26:00 29.76 kg/m2 Universi ty of [place] [facility] Oxygen saturation in 2021-12-24 17:26:00 99 /min University of Arterial blood by [place] [facility] [place] Pulse oximetry Branch Systolic blood 2021-12-08 18:45:00 131 mm[Hg] Univer sity of pressure [place] [facility] Diastolic blood 2021-12-08 18:45:00 91 mm[Hg] Unive rsity of pressure [place] [facility] Heart rate 2021-12-08 18:45:00 86 /min Universi ty of [place] [facility] Body temperature 2021-12-08 18:45:00 36.72 [place] Univ ersity of [place] [facility] Respiratory rate 2021-12-08 18:45:00 18 /min Univ ersity of [place] [facility] Body weight 2021-12-08 18:45:00 86.183 kg Universi ty of [place] [facility] BMI 2021-12-08 18:45:00 29.76 kg/m2 Universi ty of [place] [facility] Oxygen saturation in 2021-12-08 18:45:00 98 /min University of Arterial blood by [facility] Pulse oximetry Branch Systolic blood 2021-10-13 13:42:00 123 mm[Hg] Univer sity of pressure [place] [facility] Diastolic blood 2021-10-13 13:42:00 78 mm[Hg] Unive rsity of pressure [place] [facility] Heart rate 2021-10-13 13:42:00 86 /min Universi ty of [place] [facility] Body temperature 2021-10-13 13:42:00 36.78 [place] Univ ersity of [place] [facility] Respiratory rate 2021-10-13 13:42:00 18 /min Univ ersity of [place] [facility] Body weight 2021-10-13 13:42:00 86.183 kg Universi ty of [place] [facility] BMI 2021-10-13 13:42:00 29.76 kg/m2 Universi ty of [place] [facility] Oxygen saturation in 2021-10-13 13:42:00 98 /min University of Arterial blood by [place] Medi denzel Pulse oximetry Branch Systolic blood 2021-09-23 16:00:00 128 mm[Hg] Univer sity of pressure [place] [facility] Diastolic blood 2021-09-23 16:00:00 79 mm[Hg] Unive rsity of pressure [facility] Heart rate 2021-09-23 16:00:00 79 /min [facility] Body temperature 2021-09-23 16:00:00 36.72 Chelsea [facility] Oxygen saturation in 2021-09-23 16:00:00 100 /min [facility] Arterial blood by [facility] Pulse oximetry Branch Respiratory rate 2021-09-23 14:25:00 18 /min [facility] Body height 2021-09-23 14:25:00 170.2 cm [facility] Body weight 2021-09-23 14:25:00 86.183 kg [facility] BMI 2021-09-23 14:25:00 29.76 kg/m2 [facility] Procedures Procedure Date / Time Performed Performing Clinician Sourc e LIPASE 2022-05-10 03:37:00 Farzaneh Bo [facility] COMP. METABOLIC PANEL 2022-05-10 03:37:00 Farzaneh Bo [facility] ([id number]) [facility] CBC WITH DIFF 2022-05-10 03:37:00 Farzaneh Bo [facility] POCT TEST 2022-05-10 02:49:00 Farzaneh Bo [facility] URINALYSIS 2022-05-10 02:48:00 Farzaneh Bo [facility] NOTICE OF PRIVACY 2022-05-10 02:33:25 [facility]igned, [facility]/REFUSAL FOR 2022-05-10 02:31:34 Doctor Unassigned, No Un iversity of [place] DIAGNOSIS AND Name Medical Branch TREATMENT CONSENT/REFUSAL FOR 2021-12-24 17:15:06 Doctor Unassigned, No Un iversity of [place] DIAGNOSIS AND Name Medical Branch TREATMENT NOTICE OF PRIVACY 2021-12-08 18:35:32 [facility] Branch CONSENT/REFUSAL FOR 2021-12-08 18:35:08 Doctor Unassigned, No Un i[facility]ity of [place] DIAGNOSIS AND Name Medical Branch TREATMENT ASSIGNMENT OF BENEFITS 2021-10-13 13:51:35 Doctor Unassigned, No [facility] Name Medical Branch CONSENT/REFUSAL FOR 2021-10-13 13:36:21 [facility] Medical Branch TREATMENT COMP. METABOLIC PANEL 2021-09-23 15:35:00 Sridhar [facility] [place] [facility] ([id number]) Medical Branch LIPASE 2021-09-23 14:59:00 Singer [facility] CBC WITH DIFF 2021-09-23 14:59:00 Mata, [facility] CONSENT/REFUSAL FOR 2021-09-23 14:17:56 Doctor Unassigned, No [facility] AND Name Medical Branch TREATMENT Encounters Start End Encounter Admission Attending Care Care Encounter Source Date/Time Date/Time Type Type Clinicians Facility Department ID 2022-05-09 2022-05-10 Emergency [facility] [id number] Univers 21:49:00 00:20:00 FARZANEH busby [facility] 2022-05-09 2022-05-10 [facility] [id number] Univers 21:49:00 00:20:00 Farzaneh OWENS [id number] itkamari [facility] [id number] [facility] [id number] [address] 2021-12-24 2021-12-24 Emergency [facility] ERT [id number] Univers 11:28:00 13:33:00 JAYY busby [facility] 2021-12-24 2021-12-24 Emergency [facility] [id number] Univers 11:28:00 13:33:00 Jayy [place] [id number] i asael [facility] [id number] [facility] [id number] [address] 2021-12-08 2021-12-08 Emergency X [facility] ERT [id number] Univers 12:45:00 14:51:00 SRIDHAR busby [facility] 2021-12-08 2021-12-08 Emergency [facility] [id number] Univers 12:45:00 14:51:00 Sridhar OW[place] [id number] i ty of [place] [id number] [place] [id number] 2021-10-13 2021-10-13 Emergency X [facility] ERT [id number] Univers 07:44:00 07:58:00 LATHA martinkamari [facility] 2021-10-13 2021-10-13 Emergency [facility] [id number] Univers 07:44:00 07:58:00 Latha OW[place] [id number] ity [facility] [id number] [place] [id number] 2021-09-23 2021-09-23 Emergency X [facility] ERT [id number] Univers 08:30:00 10:37:00 [facility] 2021-09-23 2021-09-23 Emergency [facility] [id number] Univers 08:30:00 10:37:00 Sridhar OW[place] [id number] i ty of [place] 4.[address].7.[address] [place] [id number] 2020-11-25 2020-11-25 Emergency Kyra Medeiros [facility] [id number] 15:24:00 20:37:00 Nat Owens [id number] [place] [id number] [place] [address] [id number] [facility] 2020-11-25 2020-11-25 Emergency X [facility] ERT [id number] Univers 15:14:00 15:14:00 ity [facility] 2020-10-31 2020-10-31 Emergency Jack Brower [facility] [id number] 09:18:00 12:22:00 Gaby [place] [id number] [place] [id number] [place] [address] [id number] [facility] 2020-10-31 2020-10-31 Emergency X JACK BROWER [facility] ERT [id number] Univers 09:18:00 09:18:00 ity of [facility] 2020-09-11 2020-09-11 Emergency Kyra Medeiros [facility] [id number] 14:32:00 16:08:00 Nat [place] [id number] [place] [id number] [place] [id number] 2020-09-11 2020-09-11 Emergency X Kyra MEDEIROS [facility] ERT [id number] Univers 14:32:00 14:32:00 ity of [facility] 2020-02-03 2020-02-03 Emergency Fuad [facility] [id number] 17:08:08 18:20:00 Anjali [place] [id number] [place] [id number] [place] [id number] 2020-02-03 2020-02-03 Emergency X FUAD [facility] ERT [id number] Univers 17:00:00 17:00:00 ANJALI ity [facility] 2020-02-03 2020-02-03 Orders Doctor DAVID [id number] 00:00:00 00:00:00 Only Unassigned, ANGIE [id number] [place] [facility] 4.2.7.2.686 [id number] 2020-01-10 2020-01-11 Emergency [facility] [id number] 23:46:02 01:01:00 Serena [id number] [place] [id number] [place] [id number] 2020-01-10 2020-01-10 Emergency X [facility] ERT [id number] Univers 23:02:00 23:02:00 ity of [facility] 2019-12-18 2019-12-18 Emergency X Kyra MEDEIROS [facility] ERT [id number] Univers 17:24:37 18:57:00 ity of [facility] 2019-12-18 2019-12-18 Emergency Kyra Medeiros [facility] [id number] 17:24:37 18:57:00 Nat [place] [id number] [place] [id number] [place] [id number] 2019-12-18 2019-12-18 Orders Doctor DAVID [id number] 00:00:00 00:00:00 Only Unassigned, ANGIE [id number] [place] [id number] [id number] 2019-06-29 2019-06-29 Emergency Jayes, [facility] [id number] 02:13:29 04:06:00 Jose David Owens [id number] [place] [id number] [place] [id number] Results Test Description Test Time Test Comments Results Result Comments Source COMP. METABOLIC PANEL (72307) 2022-05-10 04:28:49 Test Item Value Reference Range Interpretation Comme nts NA (test code = 8235547595) 138 mmol/L 135-145 K (test code = 1583903047) 4.2 mmol/L 3.5-5.0 CL (test code = 5576916852) 104 mmol/L 98-108 CO2 TOTAL (test code = 25 mmol/L 23-31 9774046396) AGAP (test code = 2957845188) 2-16 BUN (test code = 2815629953) 9 mg/dL 7-23 GLUCOSE (test code = 3779068123) 103 mg/dL 70-110 CREATININE (test code = 0.78 mg/dL 0.50-1.04 8996345699) TOTAL BILI (test code = 0.3 mg/dL 0.1-1.9 6186962312) CALCIUM (test code = 2976843242) 9.4 mg/dL 8.6-10.6 T PROTEIN (test code = 7.1 g/dL 6.3-8.2 5789097677) ALBUMIN (test code = 2843001413) 4.4 g/dL 3.5-5.0 ALK PHOS (test code = 3036358343) 55 U/L 34-122 ALTv (test code = 1742-6) 25 U/L 5-35 AST(SGOT) (test code = 23 U/L 13-40 2701455121) eGFR (test code = 2241659357) mL/min/1.73m2 JASMYN (test code = JASMYN) Association [...] imaging tests). [facility] Test Item Value Reference Range Interpretation Comments LIPASE (test code = 5641236976) 58 U/L 0-220 Lab Interpretation (test code = Normal 30556-2) [facility] [id number] 03:54:04 Test Item Value Reference Range Interpretation Comments WBC (test code = See_Comment [Automated 4157-2) message] The sy stem which generated this [...] RDW-SD (test code = 46.1 fL 39.0-49.9 38433-9) RDW-CV (test code = 16.5 % 12.0-15.5 H 788-0) PLT (test code = See_Comment H [Automated 777-3) message] The sy stem which generated this result transmitted reference range : 166 - 358 10*3/ ?L. The reference r juliano was not used to interpret this result as normal/abnormal . MPV (test code = 10.0 fL 9.5-12.9 94431-5) NRBC/100 WBC (test See_Comment [Automat ed code = 1329148456) message] The system which generated this result transmitted reference range : 0.0 - 10.0 /100 WBCs. The refer ence range was not u sed to interpret th is result as normal/abnormal . NRBC x10^3 (test code <0.01 See_Comment [Auto mated = 2214815167) message] The s ystem which generated this result transmitted reference range : 10*3/?L. The reference range was not used to interpret this result as normal/abnormal . GRAN MAT (NEUT) % 57.9 % (test code = 770-8) IMM GRAN % (test code 0.10 % = 4405356297) LYMPH % (test code = 31.1 % 736-9) MONO % (test code = 7.2 % 5905-5) EOS % (test code = 3.4 % 713-8) BASO % (test code = 0.3 % 706-2) GRAN MAT x10^3(ANC) 4.08 10*3/uL 1.88-7.09 (test code = 2967258617) IMM GRAN x10^3 (test <0.03 0.00-0.06 code = 4876402092) LYMPH x10^3 (test code 2.19 10*3/uL 1.32-3.29 = 731-0) MONO x10^3 (test code 0.51 10*3/uL 0.33-0.92 = 742-7) EOS x10^3 (test code = 0.24 10*3/uL 0.03-0.39 711-2) BASO x10^3 (test code <0.03 0.01-0.07 = 704-7) Lab Interpretation Abnormal (test code = 09486-9) [id number] 02:49:00 Test Item Value Reference Range Interpretation Comments POCT PREG (test code = 1605) Negative On board controls acceptable with Positive C Line (test code = 3574) POCT PREG LOT # (test code = HCG [id number] [id number]) POCT PREG TEST DATE (test 08/31/2023 code = 3576) Lab Interpretation (test code = Normal 56552-0) [facility]. METABOLIC PANEL (27423)2021-09-23 16:10:10 Test Item Value Reference Range Interpretation Comments NA (test code = 135 mmol/L 135-145 7402503201) K (test code = 4.5 mmol/L 3.5-5.0 8565442193) CL (test code = 101 mmol/L 98-108 4979634973) CO2 TOTAL (test code 28 mmol/L 23-31 = 0171201480) AGAP (test code = 2-16 0047331022) BUN (test code = 19 mg/dL 7-23 3356329150) GLUCOSE (test code = 94 mg/dL 70-110 6807454154) CREATININE (test code 0.83 mg/dL 0.50-1.04 = 4098200291) TOTAL BILI (test code 0.5 mg/dL 0.1-1.1 = 4932410684) CALCIUM (test code = 9.9 mg/dL 8.6-10.6 1231559524) T PROTEIN (test code 7.6 g/dL 6.3-8.2 = 2784163957) ALBUMIN (test code = 4.5 g/dL 3.5-5.0 5081440855) ALK PHOS (test code = 52 U/L 34-122 7308785853) ALTv (test code = 15 U/L 5-35 1742-6) AST(SGOT) (test code 21 U/L 13-40 = 1433263912) eGFR (test code = mL/min/1.73m2 8394715828) JASMYN (test code = JASMYN) Association of [...] imaging tests). [facility] 15:52:35 Test Item Value Reference Range Interpretation Comments LIPASE (test code = 8993867129) 72 U/L 0-220 Lab Interpretation (test code = Normal 60497-5) [facility] WITH [id number] 15:37:27 Test Item Value Reference Range Interpretation [...] RDW-SD (test code = 43.4 fL 39.0-49.9 66267-4) RDW-CV (test code = 14.0 % 12.0-15.5 788-0) PLT (test code = See_Comment H [Automated 777-3) message] The sy stem which generated this result transmitted reference range : 166 - 358 10*3/ ?L. The reference r juliano was not used to interpret this result as normal/abnormal . MPV (test code = 10.4 fL 9.5-12.9 39265-7) NRBC/100 WBC (test See_Comment [Automat ed code = 3144886362) message] The system which generated this result transmitted reference range : 0.0 - 10.0 /100 WBCs. The refer ence range was not u sed to interpret th is result as normal/abnormal . NRBC x10^3 (test code <0.01 See_Comment [Auto mated = 6254703631) message] The s ystem which generated this result transmitted reference range : 10*3/?L. The reference range was not used to interpret this result as normal/abnormal . GRAN MAT (NEUT) % 60.5 % (test code = 770-8) IMM GRAN % (test code 0.30 % = 9725246251) LYMPH % (test code = 28.4 % 736-9) MONO % (test code = 6.4 % 5905-5) EOS % (test code = 3.6 % 713-8) BASO % (test code = 0.8 % 706-2) GRAN MAT x10^3(ANC) 3.71 10*3/uL 1.88-7.09 (test code = 6910052512) IMM GRAN x10^3 (test <0.03 0.00-0.06 code = 3449699192) LYMPH x10^3 (test code 1.74 10*3/uL 1.32-3.29 = 731-0) MONO x10^3 (test code 0.39 10*3/uL 0.33-0.92 = 742-7) EOS x10^3 (test code = 0.22 10*3/uL 0.03-0.39 711-2) BASO x10^3 (test code 0.05 10*3/uL 0.01-0.07 = 704-7) Lab Interpretation Abnormal (test code = 47927-4) [facility]"
[2022-12-30 10:15] LABS: Urine Blood 3+ (Negative); Urine Glucose Negative (Negative); Urine Protein 2+ (Negative)
--- NOTE | 2022-12-30 10:48 | RAD REPORT ---
EXAM DESCRIPTION: US - Transvaginal Study Probe - 12/30/2022 9:47 am CLINICAL HISTORY: Vaginal bleeding COMPARISON: 2021 FINDINGS: The uterus measures 10 x 4 x 4 cm. A fibroid is not seen. The endometrial stripe measures 6 millimeters. A fibroid is not seen The ovaries are normal in size and echotexture. The right and left adnexa unremarkable No significant free fluid is seen. IMPRESSION: Unremarkable pelvic ultrasound
[2022-12-30] MEDS ORDERED: NA CHLORIDE 0.9% 1,000 ML ONE (10:51)
[2022-12-30] MEDS ORDERED: KETOROLAC 30 MG/ML INJ ONE (10:51)
[2022-12-30 10:58] LABS: Absolute Lymphocytes (CBC) 1.5 K/uL (0.7-4.9); Hematocrit 36.8 % (36.0-45.0); Lymphocytes % 27.1 % (15.3-44.8); MCV 74.9 fL (80-100); RBC Red Blood Cell Count 4.91 M/uL (3.86-4.86)
[2022-12-30 11:01] LABS: Protime INR 0.98
[2022-12-30 11:20] LABS: BUN Blood Urea Nitrogen 17 mg/dL (7-18); Bicarbonate 27 mmol/L (21-32); Glomerular Filtration Rate 91 ml/min (=/>90); Glucose Level 93 mg/dL (74-106); Potassium 3.8 mmol/L (3.5-5.1); Sodium Level 137 mmol/L (136-145)
[2022-12-30 11:22] LABS: Urine Bacteria <20 /HPF (<20); Urine WBC Clump Few /HPF (None Seen)
[2022-12-30 11:25] LABS: HCG, Quantitative < 1 mIU/mL (1-3)
--- NOTE | 2022-12-30 11:38 | EDPHYS ---
Physician Documentation [facility] Name: Genesis Hu Age: 32 yrs Sex: Female : 1990 Arrival Date: 12/30/2022 Time: 08:56 Bed 16 Private MD: ÁNGEL Physician Eddie Danielle HPI: 12/30 09:00 This 32 yrs old Female presents to ER via Unassigned with complaints of Vaginal jh7 Bleeding. 09:00 The patient presents with vaginal bleeding that is heavy, with no clots. Onset: The jh7 symptoms/episode began/occurred this morning. Associated signs and symptoms: Pertinent positives: cramping, Abdominal cramping, Pertinent negatives: constipation, fever, hematuria, vaginal discharge. The patient is not sexually active. The patient's method of control includes nothing. 32-year-old female presents for vaginal bleeding and cramping. Reports that she started her. On Wednesday and that this morning she woke up with her bed covered in blood. Reports heavy vaginal bleeding with abdominal cramping. Reports that she has used 3 pads in the past 3 hours. History of a tubal ligation. G6, P4, L4. Denies having an HISTOLOGY TECH.. HISTOLOGY TECH: 09:00 6, Full Term 4, 2, Living 4, LMP 12/28/2022 jh7 10:55 LMP N/A - tubes tied ap3 Historical: - Allergies: 09:48 Amoxicillin; ss 09:48 Bleach (Sodium Hypochlorite); ss 09:48 Latex, Natural Rubber; ss 09:48 PENICILLINS; ss - PMHx: 09:48 hiatal hernia; PCOS; peptic ulcer; ss - PSHx: 09:48 section; tubal ligation; ss - Immunization history:: Client reports having NOT received the Covid vaccine. - Social history:: Smoking status: unknown. ROS: 09:00 Constitutional: Negative for fever, chills, and weight loss, Eyes: Negative for injury, jh7 pain, redness, and discharge, ENT: Negative for injury, pain, and discharge, Neck: Negative for injury, pain, and swelling, Cardiovascular: Negative for chest pain, palpitations, and edema, Respiratory: Negative for shortness of breath, cough, wheezing, and pleuritic chest pain, Back: Negative for injury and pain, MS/Extremity: Negative for injury and deformity, Skin: Negative for injury, rash, and discoloration, Neuro: Negative for headache, weakness, numbness, tingling, and seizure. 09:00 Abdomen/GI: Positive for abdominal cramps, Negative for nausea, vomiting, and diarrhea, constipation. 09:00 : Positive for vaginal bleeding, Negative for vaginal discharge, vaginal itching, missed period. 09:00 All other systems are negative. Exam: 09:00 Constitutional: This is a well developed, well nourished patient who is awake, alert, jh7 and in no acute distress. Head/Face: Normocephalic, atraumatic. Eyes: Pupils equal round and reactive to light, extra-ocular motions intact. Lids and lashes normal. Conjunctiva and sclera are non-icteric and not injected. Cornea within normal limits. Periorbital areas with no swelling, redness, or edema. Neck: Trachea midline, no thyromegaly or masses palpated, and no cervical lymphadenopathy. Supple, full range of motion without nuchal rigidity, or vertebral point tenderness. No Meningismus. Cardiovascular: Regular rate and rhythm with a normal S1 and S2. No gallops, murmurs, or rubs. Normal PMI, no JVD. No pulse deficits. Respiratory: Lungs have equal breath sounds bilaterally, clear to auscultation and percussion. No rales, rhonchi or wheezes noted. No increased work of breathing, no retractions or nasal flaring. Back: No spinal tenderness. No costovertebral tenderness. Full range of motion. Skin: Warm, dry with normal turgor. Normal color with no rashes, no lesions, and no evidence of cellulitis. MS/ Extremity: Pulses equal, no cyanosis. Neurovascular intact. Full, normal range of motion. Neuro: Awake and alert, GCS 15, oriented to person, place, time, and situation. Motor strength 5/5 in all extremities. Sensory grossly intact. Normal gait. Vital Signs: 10:52 BP 135 / 79; Pulse 55; Resp 18; Temp 98.2(O); Pulse Ox 100% ; ap3 11:26 BP 130 / 75; Pulse 60; Pulse Ox 100% ; ap3 12:25 BP 128 / 80; Pulse 57; Pulse Ox 98% on R/A; ap3 MDM: 08:57 Patient medically screened. [facility] 11:40 Differential diagnosis: ectopic , ovarian cyst, uterine fibroids, urinary jh7 tract infection. Data reviewed: vital signs, nurses notes, lab test result(s), radiologic studies, ultrasound. I considered the following discharge prescriptions or medication management in the emergency department Medications were administered in the Emergency Department. See MAR. Care significantly affected by the following chronic conditions: PCOS. Care significantly affected by the following Social Determinants of Health: Poor access to healthcare and/or lack of insurance. Counseling: I had a detailed discussion with the patient and/or guardian regarding: the historical points, exam findings, and any diagnostic results supporting the discharge/admit diagnosis, to return to the emergency department if symptoms worsen or persist or if there are any questions or concerns that arise at home. Response to treatment: the patient's symptoms have markedly improved after treatment. ED course: The patient symptoms significantly improved. Informed her that she was likely having a heavy menstrual cycle. She just started her period 3 days ago. Informed her that her ultrasound and labs were unremarkable. Advised her to to follow-up with her HISTOLOGY TECH. If she develops any new concerning symptoms, or current symptoms worsen, she may return to the ER for further eval. The patient understood the plan of care.. 12/30 09:08 Order name: Basic Metabolic Panel; Complete Time: 11:32 [facility] 12/30 09:08 Order name: CBC with Diff; Complete Time: 11:18 [facility] 12/30 09:08 Order name: Quantitative Hcg; Complete Time: 11:32 [facility] 12/30 09:08 Order name: IV Saline Lock; Complete Time: 10:41 [facility] 12/30 09:08 Order name: Labs collected and sent; Complete Time: 10:42 [facility] 12/30 09:08 Order name: NPO; Complete Time: 10:02 [facility] 12/30 09:08 Order name: Urine Dipstick-Ancillary (obtain specimen); Complete Time: 10:26 [facility] 12/30 09:08 Order name: Urine Test (obtain specimen); Complete Time: 10:26 [facility] 12/30 09:08 Order name: Type And Screen; Complete Time: 11:38 [facility] 12/30 09:08 Order name: PT-INR; Complete Time: 11:18 [facility] 12/30 09:08 Order name: Urine Microscopic Only; Complete Time: 12:31 jh7 12/30 09:20 Order name: Transvaginal Study Probe; Complete Time: 10:49 EDMS 12/30 10:16 Order name: Urine Dipstick-Ancillary; Complete Time: 10:17 EDMS 12/30 10:16 Order name: Urine --Ancillary (enter results); Complete Time: 10:34 bd 12/30 11:53 Order name: Urine Culture EDMS Administered Medications: 10:56 Drug: NS 0.9% 1000 ml Route: IV; Rate: 1 bolus; Site: left antecubital; ap3 13:35 Follow up: IV Status: Completed infusion ap3 10:56 Drug: Ketorolac 15 mg Route: IVP; Site: left antecubital; ap3 12:25 Follow up: Response: No adverse reaction; Pain is decreased ap3 13:34 Follow up: Response: No adverse reaction; Pain is decreased ap3 Disposition Summary: 12/30/22 11:38 Discharge Ordered Location: Home [facility] Problem: new [facility] Symptoms: have improved [facility] Condition: Stable [facility] Diagnosis - Abnormal uterine and vaginal bleeding, unspecified [facility] Followup: [facility] - With: Private Physician - When: 2 - 3 days - Reason: Recheck today's complaints Discharge Instructions: - Discharge Summary Sheet [facility] - Abnormal Uterine Bleeding [facility] Forms: - Work release form ap3 - Medication Reconciliation Form [facility] - Thank You Letter [facility] Signatures: Dispatcher [employer] Teresa Allison RN Jill Diehl RN RN ap3 Xin Green FNP FNP [facility] Corrections: (The following items were deleted from the chart) 09:20 09:08 Transvaginal Ob+US.RAD.BRZ ordered. EDMS EDMS
--- NOTE | 2022-12-30 11:38 | ER ---
Nurse's Notes [facility] Name: Genesis Hu Age: 32 yrs Sex: Female : 1990 Arrival Date: 12/30/2022 Time: 08:56 Bed 16 Private MD: Diagnosis: Abnormal uterine and vaginal bleeding, unspecified Presentation: 12/30 10:43 Method Of Arrival: Ambulatory ap3 10:43 Coronavirus screen: At this time, the client does not indicate any symptoms associated ap3 with coronavirus-19. Ebola Screen: No symptoms or risks identified at this time. Initial Sepsis Screen: Does the patient meet any 2 criteria? No. Patient's initial sepsis screen is negative. Does the patient have a suspected source of infection? No. Patient's initial sepsis screen is negative. Risk Assessment: Do you want to hurt yourself or someone else? Patient reports no desire to harm self or others. Onset of symptoms was December 30, 2022. 10:43 Acuity: KIRSTIN 3 ap3 10:54 Chief complaint: Patient states: she woke up this morning with blood in her bed around ap3 her vaginal area and was experiencing moderate vaginal bleeding. patient reports that on her way to work this morning she started to get dizzy, and that is when she decided to come get evaluated at the ED. Triage Assessment: 10:53 General: Appears in no apparent distress. Behavior is calm, cooperative, appropriate ap3 for age. Pain: Complains of pain in abdomen Pain radiates to back. Neuro: Level of Consciousness is awake, alert, obeys commands, Oriented to person, place, time, situation. Cardiovascular: Patient's skin is warm and dry. Respiratory: Airway is patent Respiratory effort is even, unlabored, Respiratory pattern is regular, symmetrical. : Reports discharge, bloody, vaginal bleeding that is moderate flow. 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 - Social history:: Smoking status: unknown. Screenin:42 [facility] ED Fall Risk Assessment (Adult) History of falling in the last 3 months, ap3 including since admission No falls in past 3 months (0 pts). Abuse screen: Denies threats or abuse. Nutritional screening: No deficits noted. Tuberculosis screening: No symptoms or risk factors identified. Assessment: 09:30 Reassessment: Pt called to triage, no answer. Pt in US at this time. 12:24 Reassessment: awaiting fluid completion prior to patients departure. ap3 Vital Signs: 10:52 BP 135 / 79; Pulse 55; Resp 18; Temp 98.2(O); Pulse Ox 100% ; ap3 11:26 BP 130 / 75; Pulse 60; Pulse Ox 100% ; ap3 12:25 BP 128 / 80; Pulse 57; Pulse Ox 98% on R/A; ap3 ED Course: 08:56 Patient arrived in ED. mr 08:57 Xin Green, [facility] jh 08:57 Eddie Danielle MD is Attending Physician. 7 09:29 Transvaginal Study Probe In Process Unspecified. EDMS 10:01 Jill Aguila, IRENE is Primary Nurse. ap3 10:42 Inserted saline lock: 22 gauge in left antecubital area, using aseptic technique. Blood ap3 collected. 10:42 Arm band placed on right wrist. ap3 10:43 Triage completed. ap3 10:54 Patient has correct armband on for positive identification. Bed in low position. Call ap3 light in reach. Side rails up X2. Pulse ox on. NIBP on. Door closed. Noise minimized. Warm blanket given. 13:42 No provider procedures requiring assistance completed. IV discontinued, intact, ap3 bleeding controlled, No redness/swelling at site. Pressure dressing applied. Administered Medications: 10:56 Drug: NS 0.9% 1000 ml Route: IV; Rate: 1 bolus; Site: left antecubital; ap3 13:35 Follow up: IV Status: Completed infusion ap3 10:56 Drug: Ketorolac 15 mg Route: IVP; Site: left antecubital; ap3 12:25 Follow up: Response: No adverse reaction; Pain is decreased ap3 13:34 Follow up: Response: No adverse reaction; Pain is decreased ap3 Medication: 13:42 VIS not applicable for this client. ap3 Outcome: 11:38 Discharge ordered by . melissa 13:42 Discharged to home ambulatory, with family. ap3 13:42 Condition: good 13:42 Discharge instructions given to patient, Instructed on discharge instructions, follow up and referral plans. Demonstrated understanding of instructions, follow-up care. 13:42 Patient left the ED. ap3 Signatures: Dispatcher [employer] ÁNGELWA Maria Isabel RojasTeresa dumas, RN RN Jill Diehl RN RN ap3 Xin Green FNP FNP jh7
[2022-12-30 13:57] VITALS: TEMP 98.2
[2022-12-30 14:00] VITALS: BP 128/80; O2SAT 98
== END 2022-12-30 13:42 | disposition home or self-care (01) ==
LOC: ER 08:53
DX: N93.9 Abnormal uterine and vaginal bleeding, unspecified (principal); Z88.0 Allergy status to penicillin; Z88.1 Allergy status to other antibiotic agents; Z91.040 Latex allergy status; Z91.048 Other nonmedicinal substance allergy status
CPT/HCPCS: 87088; 85025; 87086; 80048; 36415; 86900; 86850; 81025; 85610; 86901; 84702; 76830; J7030; 81003; 81015

== ENCOUNTER 2023-04-26 18:34 | Emergency (ER) | payer SELFPAY ==
--- OUTSIDE RECORDS SUMMARY | 2023-04-26 18:38 | XMS REPORT | Continuity of Care Document ---
:1990 Author Organization [facility] t Address [address] [place] [address] Care Team Providers Name Role Phone PCP, PATIENT DOES NOT HAVE A Primary Care Physician Unavaila FARZANEH Obrien Attending Clinician Unavailable Farzaneh Ma NP Attending Clinician JESSICA BALLARD Attending Clinician Unavailable Jessica Ballard MD Attending Clinician JAYY AARON Attending Clinician Unavailable Jayy Brandt Attending Clinician SRIDHAR MATA Attending Clinician Unavailable Sridhar Mata DO Attending Clinician LATHA WINSTON Attending Clinician Unavailable Latha Winston DO Attending Clinician Kyra Sweeney Attending Clinician Jack Brower MD Attending Clinician JACK BROWER Attending Clinician Unavailable Kyra MEDEIROS Attending Clinician Unavailable Anjali Merida PA-C Attending Clinician ANJALI MERIDA Attending Clinician Unavailable Doctor Unassigned, [place] Attending Clinician Unavailable Jose David Valle MD Attending Clinician JESSICA BALLARD Admitting Clinician Unavailable Payers Payer Name Policy Type Policy Number Effective Date Expiration Date Marcial koo [employer] [id number] 2022 OUT OF NETWORK 00:00:00 MEDICAID PENDING PENDING 2021 00:00:00 Problems Condition Condition Condition Status Onset Resolution Last Treating Co mments Source Name Details Category Date Date Treatment Clinician Date Abdominal Abdominal Disease Active Overview: Univers pain pain 07-28 Formattin ity of 00:00: g of this [place] 00 note Medical might be Branch different from the original. 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 1 hr- 47 Immune to Immune to Disease Active Uni vers varicella varicella 07-05 ity of 00:00: [place] 00 Medical Branch High-risk High-risk Disease Active Overview: Univers 8 Formattin i ty of 00:00: g of this [place] 00 note Medical might be Branch different from the original. Medical records received. [facility]. DOS- 0. CC: 30 weeks w/ twins, vomiting black liquid. No evidence of hepatitis , pancreati tis, or liver dysfuncti on. Physiolog ic anemia. No UTI or ketonuria . 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 Medical records- 11/23/201 0- IUP at 33 weeks. Dichorion ic, diamnioti c twin gestation . presentat ion Vertex and transvers e. PTL. Primary low transvers e via Pfannenst iel incision. Right dermoid cystectom y. Bipolar Bipolar Disease Active Univers disorder disorder 30 ity of 00:00: [place] 00 Medical Branch [...] week via for PTL -Twins. Send to [facility] at 16 weeks Pain Pain Disease Active Univers pelvic pelvic 06-30 ity of 00:00: [place] [facility] Rubella Rubella Disease Active Univers immune immune 06-30 ity of 00:00: Medical Branch Allergies, Adverse Reactions, Alerts Allergy Allergy Status Severity Reaction(s) Onset Inactive Treating Comm ents Source Name Type Date Date Clinician LATEX DRUG Active ITCHING Univers INGREDI 7- ity of 00:00: [place] 00 Medical Branch NUDIT DRUG Active Swelling Univers BLEACH 7- ity of 00:00: [place] [facility] Latex Propensi Active Itching Univers ty to 7- ity of adverse 00:00: [place] reaction 00 Medical s Branch Nudit Propensi Active Swelling 0 Univer s Bleach ty to 7-09 ity of adverse 00:00: [place] reaction 00 Medical s Branch AMOXICIL DRUG Active Anaphylaxis Uni vers DAVY INGREDI 3-11 ity of 00:00: [place] 00 Medical Branch Amoxicil Propensi Active Anaphylaxis 2016-0 U nivers davy ty to 3-11 ity of adverse 00:00: [place] reaction 00 Medical s Branch PENICILL DRUG Active Anaphylaxis 2015- Uni vers IN INGREDI 2-14 ity of [...] Stop Date Quantity Comments Source Exposure to 2023-02-17 2023-02-27 Not sure [facility] SARS-CoV-2 00:00:00 09:35:00 [facility] (event) [place] Alcohol intake 2023-02-27 2023-02-27 Current University 00:00:00 00:00:00 non-drinker of [facility] alcohol (finding) [place] Tobacco use and 2013-06-30 2013-06-30 Smokeless tobacco Un iversity of exposure 00:00:00 00:00:00 non-user [facility] Sex Assigned At [birth year] Universit y of 00:00:00 00:00:00 [facility] Smoking Status Start Date Stop Date Source Never smoked tobacco [facility] Medications Ordered Filled Start Stop Current Ordering Indication Dosage Frequency Signature Comments Components Source Medication Medication Date Date Medication? Clinician (SIG) Name Name levETIRAcet 2022- No 1000mg 1,000 mg, Univers am (KEPPRA) 01-26 IV ity of in NACL 00:30: 23:56 Piggyback, [place] as (ISO-OS) 00 :00 ONCE, 1 Medical 1,000 dose, On Branch mg/100 mL Mon RTU 01/25/23 at 1930, Administer over 15 Minutes, 100 mL acetaminoph 2022- No 975mg 975 mg, U nivers en 01-26 Oral, ity of (TYLENOL) 00:30: 23:42 ONCE, 1 [place] tablet 975 00 :00 dose, On Medic al mg Mon Branch 01/25/23 at 1930, MARIELA levETIRAcet Yes [id number] 500mg Take 1 Univers am (KEPPRA) 01-25 tablet by ity of 500 mg 00:00: mouth in [place] tablet 00 the Medical morning Branch and 1 tablet in the evening. levETIRAcet Yes [id number] 500mg Take 1 Univers am (KEPPRA) 3-27 tablet by ity of 500 mg 00:00: mouth in [place] tablet 00 the Medical morning Branch and 1 tablet in the evening. dicyclomine 2021- No 20mg 20 mg, Uni vers (BENTYL) 05-10- Intramuscu ity of injection 04:15: 03:38 lar, ONCE, [place] 20 mg 00 :00 1 dose, On Medical 05/09/22 Branch at 2315, Routine dicyclomine 0 Yes [id number] 20mg Take 1 Univers 20 mg 7-10 tablet by ity of tablet 00:00: mouth 4 [place] (four) Medical times Branch daily as needed for Abdominal pain. dicyclomine 0 Yes [id number] 20mg Take 1 Univers 20 mg 7-10 tablet by ity of tablet 00:00: mouth 4 [place] (four) Medical times Branch daily as needed for Abdominal pain. dicyclomine 0 Yes [id number] 20mg Take 1 Univers 20 mg 7-10 tablet by ity of tablet 00:00: mouth 4 [place] 00 (four) Medical times Branch daily as needed for Abdominal pain. ferrous 2021- No 1{tbl} Take 1 Unive rs sulfate/vit 05-09 tablet by it y of C/folic ac 23:56: 00:00 mouth [place] (FERROUS 54 :00 daily. Medical SULFATE-C-F Branch OLIC ACID ORAL) dicyclomine 0 2021- No [id number] 20mg Take 1 Univers 20 mg 05-09 tablet by ity of tablet 00:00: 00:00 mouth 4 [place] 00 :00 (four) Medical times Branch daily as needed for Abdominal pain. clarithromy 2021-0 Yes [id number] 500mg Take 1 Univers dominique 500 mg 2-23 tablet by ity of tablet 00:00: mouth [place] 00 every 12 Medical (twelve) Branch hours. pantoprazol 2021-0 Yes [id number] 40mg Take 1 Univers e 40 mg EC 2-23 tablet by ity of tablet 00:00: mouth [place] 00 daily. Medical Branch pantoprazol Yes [id number] 40mg Take 1 Univers e 40 mg EC 2-23 tablet by ity of tablet 00:00: mouth [place] 00 daily. Medical Branch pantoprazol Yes [id number] 40mg Take 1 Univers e 40 mg EC 2-23 tablet by ity of tablet 00:00: mouth [place] 00 daily. Medical Branch pantoprazol Yes [id number] 40mg Take 1 Univers e 40 mg EC 2-23 tablet by ity of tablet 00:00: mouth [place] 00 daily. Medical Branch clarithromy 2021- No [id number] 500mg Take 1 Univers dominique 500 mg 2-23 - tablet by ity of tablet 00:00: 00:00 mouth [place] 00 :00 every 12 Medical (twelve) Branch hours. sucralfate 2021- No [id number] 1g Take 1 Univers 1 gram -21 01- tablet by ity of tablet 00:00: 04:59 mouth [place] 00 :00 before Medical meals and Branch at bedtime for 30 days. metroNIDAZO 2021- No [id number] 500mg Take 1 Univers LE 500 mg 2- 03-10 tablet by ity of tablet 00:00: 05:59 mouth [place] 00 :00 every 8 Medical (eight) Branch hours for 14 days. sucralfate 2021- No [id number] 1g Take 1 Univers 1 gram -24 12- tablet by ity of tablet 00:00: 00:00 mouth [place] 00 :00 before Medical meals and Branch at bedtime. maalox:diph 2021- No 15mL 15 mL, Uni vers enhydrAMINE 2- Oral, ity of :lidocaine 21:30: 20:30 ONCE, 1 [place] 2 % viscous 00 :00 dose, On Medi denzel 1:1:1 12/08/21 Branch ([facility] at 1530, [facility]) Routine oral suspension 15 mL sucralfate Yes [id number] 1g Take 1 U nivers 1 gram 2- tablet by ity of tablet 00:00: mouth [place] 00 before Medical meals and Branch at bedtime. dicyclomine Yes [id number] 10mg Take 1 Univers (BENTYL) 10 2-07 capsule by it y of mg capsule 00:00: mouth [place] 00 every 8 Medical (eight) Branch hours as needed for Abdominal pain. ondansetron 0 Yes [id number] 4mg Take 1 Univers 4 mg 2-07 tablet by ity of disintegrat 00:00: mouth [place] ing tablet 00 every 8 Medica l (eight) Branch hours as needed for Nausea and Vomiting (N/V). dicyclomine 0 Yes [id number] 10mg Take 1 Univers (BENTYL) 10 2-07 capsule by it y of mg capsule 00:00: mouth [place] 00 every 8 Medical (eight) Branch hours as needed for Abdominal pain. ondansetron 0 Yes [id number] 4mg Take 1 Univers 4 mg 2-07 tablet by ity of disintegrat 00:00: mouth [place] ing tablet 00 every 8 Medica l (eight) Branch hours as needed for Nausea and Vomiting (N/V). ondansetron Yes [id number] 4mg Take 1 Univers 4 mg 2-07 tablet by ity of disintegrat 00:00: mouth [place] ing tablet 00 every 8 Medica l (eight) Branch hours as needed for Nausea and Vomiting (N/V). ondansetron Yes [id number] 4mg Take 1 Univers 4 mg 2-07 tablet by ity of disintegrat 00:00: mouth [place] ing tablet 00 every 8 Medica l (eight) Branch hours as needed for Nausea and Vomiting (N/V). ondansetron Yes [id number] 4mg Take 1 Univers 4 mg 2-07 tablet by ity of disintegrat 00:00: mouth [place] ing tablet 00 every 8 Medica l (eight) Branch hours as needed for Nausea and Vomiting (N/V). dicyclomine 2021- No [id number] 10mg Take 1 Univers (BENTYL) 10 2-07 07-09 capsule by i ty of mg capsule 00:00: 00:00 mouth [place] 00 :00 every 8 Medical (eight) Branch hours as needed for Abdominal pain. omeprazole 0 2021- No [id number] 20mg Take 1 Univers 20 mg 2-07 03-10 capsule by ity of capsule 00:00: 05:59 mouth [place] 00 :00 daily for Medical 30 days. Branch omeprazole 2021- No [id number] 20mg Take 1 Univers 20 mg 12-08-10 capsule by ity of capsule 00:00: 05:59 mouth [place] 00 :00 daily for Medical 30 days. Branch sucralfate 2021- No [id number] 1g Take 1 Univers 1 gram 12-08- tablet by ity of tablet 00:00: 00:00 mouth [place] 00 :00 before Medical meals and Branch at bedtime. bismuth-met 2021- No [id number] 3{capsu Take 3 Univers ronidazole- 2-05 02- le} capsules ity of tetracyclin 00:00: 05:59 by mouth [place] e 00 :00 before Medical 140-125-125 meals and Bra nch mg per at bedtime capsule for 14 days. pantoprazol 2020-11 Yes [id number] 40mg Take 1 Univers e 2-13 tablet by ity of (PROTONIX) 00:00: mouth [place] 40 mg EC 00 daily. Medical tablet Branch pantoprazol 2020-11 Yes [id number] 40mg Take 1 Univers e 2-13 tablet by ity of (PROTONIX) 00:00: mouth [place] 40 mg EC 00 daily. Medical tablet Branch pantoprazol 2020-11- No [id number] 40mg Take 1 Univers e 2-13 -23 tablet by ity of (PROTONIX) 00:00: 00:00 mouth [place] 40 mg EC 00 :00 daily. Medical tablet Branch sucralfate 2020-11- No [id number] 1g Take 1 Univers 1 gram 2-13 11- tablet by ity of tablet 00:00: 05:59 mouth [place] 00 :00 before Medical meals and Branch at bedtime for 30 days. dicyclomine 2020-11 Yes 10mg 10 mg, Univ ers (BENTYL) 1-23 Oral, QID, ity o f capsule 10 18:00: First dose [place] mg 00 on [facility] 09/23/21 Branch at 1200, Until Discontinu ed, Routine sucralfate 2020-11 Yes 1g 1 g, Oral, U nivers (CARAFATE) 1-23 AC+HS, ity of tablet 1 g 17:30: First dose [place] 00 on [facility] 09/23/21 Branch at 1130, Until Discontinu ed, Routine pantoprazol 2020-11- No 40mg 40 mg, Uni vers e 11-23 Slow IV ity of (PROTONIX) 15:45: 15:00 Push, [place] injection 00 :00 ONCE, 1 Medical 40 mg dose, On Branch [facility] 09/23/21 at 0945 dicyclomine 2020-11 Yes [id number] 10mg Take 1 Univers (BENTYL) 10 11-23 capsule by it y of mg capsule 00:00: mouth [place] 00 every 8 Medical (eight) Branch hours as needed for Abdominal pain. ondansetron 2020-11 Yes [id number] 4mg Take 1 Univers 4 mg -23 tablet by ity of disintegrat 00:00: mouth [place] ing tablet 00 every 8 Medica l (eight) Branch hours as needed for Nausea and Vomiting (N/V). sucralfate 2020-11 Yes [id number] 1g Take 1 U nivers 1 gram -23 tablet by ity of tablet 00:00: mouth [place] 00 before Medical meals and Branch at bedtime. dicyclomine 2020-11 Yes [id number] 10mg Take 1 Univers (BENTYL) 10 - capsule by it y of mg capsule 00:00: mouth [place] 00 every 8 Medical (eight) Branch hours as needed for Abdominal pain. ondansetron 2020-11 Yes [id number] 4mg Take 1 Univers 4 mg -23 tablet by ity of disintegrat 00:00: mouth [place] ing tablet 00 every 8 Medica l (eight) Branch hours as needed for Nausea and Vomiting (N/V). pantoprazol 2020-11 Yes [id number] 40mg Take 1 Univers e 11-23 tablet by ity of (PROTONIX) 00:00: mouth [place] 40 mg EC 00 daily. Medical tablet Branch dicyclomine 2020-11- No [id number] 10mg Take 1 Univers (BENTYL) 10 - 02-07 capsule by i ty of mg capsule 00:00: 00:00 mouth [place] 00 :00 every 8 Medical (eight) Branch hours as needed for Abdominal pain. ondansetron 2020-11- No [id number] 4mg Take 1 Univers 4 mg 1-23 02-07 tablet by ity of disintegrat 00:00: 00:00 mouth [place] ing tablet 00 :00 every 8 Medica l (eight) Branch hours as needed for Nausea and Vomiting (N/V). sucralfate 2020-11- No [id number] 1g Take 1 Univers 1 gram 11-23 12-13 tablet by ity of tablet 00:00: 00:00 mouth [place] 00 :00 before Medical meals and Branch at bedtime. pantoprazol 2020-11- No [id number] 40mg Take 1 Univers e 11-23 12-13 tablet by ity of (PROTONIX) 00:00: 00:00 mouth [place] 40 mg EC 00 :00 daily. Medical tablet Branch ciprofloxac Yes [id number] 500mg Take 1 Univers in HCl 500 1-25 tablet by ity of mg tablet 00:00: mouth 2 [place] 00 (two) Medical times Branch daily. ciprofloxac 2020- No [id number] 500mg Take 1 Univers in HCl 500 - 12-13 tablet by ity of mg tablet 00:00: 00:00 mouth 2 [place] 00 :00 (two) Medical times Branch daily. ondansetron 2020- No [id number] 4mg Take 1 Univers (ZOFRAN 11-25 tablet by ity of ODT) 4 mg 00:00: 00:00 mouth [place] disintegrat 00 :00 every 8 Medic al ing tablet (eight) Branch hours as needed for Nausea and Vomiting (N/V). cyclobenzap 2019-11 Yes [id number] 10mg Take 1 Univers rine 10 mg 1-11 tablet by ity of tablet 00:00: mouth 3 [place] 00 (three) Medical times Branch daily. cyclobenzap 2019-11 Yes [id number] 10mg Take 1 Univers rine 10 mg 1-11 tablet by ity of tablet 00:00: mouth 3 [place] 00 (three) Medical times Branch daily. cyclobenzap 2019-11 Yes [id number] 10mg Take 1 Univers rine 10 mg 1-11 tablet by ity of tablet 00:00: mouth 3 [place] 00 (three) Medical times Branch daily. cyclobenzap 2019-11 Yes [id number] 10mg Take 1 Univers rine 10 mg 1-11 tablet by ity of tablet 00:00: mouth 3 [place] 00 (three) Medical times Branch daily. cyclobenzap 2020- Yes [id number] 10mg Take 1 Univers rine 10 mg 1-11 tablet by ity of tablet 00:00: mouth 3 [place] 00 (three) Medical times Branch daily. cyclobenzap 2020- Yes [id number] 10mg Take 1 Univers rine 10 mg 1-11 tablet by ity of tablet 00:00: mouth 3 [place] 00 (three) Medical times Branch daily. ibuprofen 2019- Yes [id number] 600mg Take 1 Univers 600 mg 1-11 tablet by ity of tablet 00:00: mouth [place] 00 every 6 Medical (six) Branch hours as needed for Pain (scale 4-6). cyclobenzap 2019- Yes [id number] 10mg Take 1 Univers rine 10 mg 1-11 tablet by ity of tablet 00:00: mouth 3 [place] 00 (three) Medical times Branch daily. ibuprofen 2019-11- No [id number] 600mg Take 1 Univers 600 mg 1-11 [...] Branch OLIC ACID ORAL) bromphenira 2020-0 Yes [id number] 5mL Take 5 mL Univers mine-pseudo 4-04 by mouth 4 it y of ephedrine-D 00:00: (four) [place] M (BROMFED 00 times Medical DM) 2-30-10 daily as Bran ch mg/5 mL needed for syrup Congestion /Allergies or Cough. bromphenira 2020-0 Yes [id number] 5mL Take 5 mL Univers mine-pseudo 4-04 by mouth 4 it y of ephedrine-D 00:00: (four) [place] M (BROMFED 00 times Medical DM) 2-30-10 daily as Bran ch mg/5 mL needed for syrup Congestion /Allergies or Cough. bromphenira 2020-0 Yes [id number] 5mL Take 5 mL Univers mine-pseudo 4-04 by mouth 4 it y of ephedrine-D 00:00: (four) [place] M (BROMFED 00 times Medical DM) 2-30-10 daily as Bran ch mg/5 mL needed for syrup Congestion /Allergies or Cough. methylPREDN 2020-0 Yes [id number] Take by Univers ISolone 4 4-04 mouth ity of mg tablets 00:00: SEE-INSTRU [place] 00 CTIONS. Medical follow Branch package directions levoFLOXaci 2020-0 Yes [id number] 500mg Take 1 Univers n 4-04 tablet by ity of (LEVAQUIN) 00:00: mouth [place] 500 mg 00 every 24 Medical tablet (twenty-fo Branch ur) hours. bromphenira 2020-0 Yes [id number] 5mL Take 5 mL Univers mine-pseudo 4-04 by mouth 4 it y of ephedrine-D 00:00: (four) [place] M (BROMFED 00 times Medical DM) 2-30-10 daily as Bran ch mg/5 mL needed for syrup Congestion /Allergies or Cough. bromphenira 2020-0 2021- No [id number] 5mL Take 5 mL Univers mine-pseudo 4-04 07-09 by mouth 4 i ty of ephedrine-D 00:00: 00:00 (four) [place] M (BROMFED 00 :00 times Medical DM) 2-30-10 daily as Bran ch mg/5 mL needed for syrup Congestion /Allergies or Cough. methylPREDN 2020-0 2020- No [id number] Take by Univers ISolone 4 4-04 12-13 mouth ity of mg tablets 00:00: 00:00 SEE-INSTRU [place] 00 :00 CTIONS. Medical follow Branch package directions levoFLOXaci 2021- No [id number] 500mg Take 1 Univers n 02-02 12-13 tablet by itkamari of (LEVAQUIN) 00:00: 00:00 mouth [place] 500 mg 00 :00 every 24 Medical tablet (twenty-fo Branch ur) hours. Immunizations Ordered Filled Immunization Date Status Comments Sourc e Immunization Name Name Td 2016-04-30 Completed University of 00:00:00 [facility] Branch Td 2016-04-30 Completed University of 00:00:00 [facility] Td 2016-04-30 Completed University of 00:00:00 [facility] Td 2016-04-30 Completed University of 00:00:00 [facility] TD, NOS 2016-04-30 Completed University of 00:00:00 [facility] TD, NOS 2016-04-30 Completed University of 00:00:00 [facility] Td 2016-04-30 Completed University of 00:00:00 [facility] Rubella 2010-04-22 Completed University of 00:00:00 [facility] Rubella 2010-04-22 Completed University of 00:00:00 [facility] Rubella 2010-04-22 Completed University of 00:00:00 [facility] Rubella 2010-04-22 Completed University of 00:00:00 [facility] Rubella 2010-04-22 Completed University of 00:00:00 [facility] Rubella 2010-04-22 Completed University of 00:00:00 [facility] Rubella 2010-04-22 Completed University of 00:00:00 [facility] Td 2006-06-30 Completed University of 00:00:00 [facility] Branch Td 2006-06-30 Completed University of 00:00:00 [facility] Td 2006-06-30 Completed University of 00:00:00 [facility] Td 2006-06-30 Completed University of 00:00:00 [facility] TD, NOS 2006-06-30 Completed University of 00:00:00 [facility] Branch TD, NOS 2006-06-30 Completed University of 00:00:00 [facility] Td 2006-06-30 Completed University of 00:00:00 [facility] Vital Signs Vital Name Observation Time Observation Value Comments Source Systolic blood 2023-02-27 15:24:59 144 mm[Hg] Univer sity of pressure [facility] Diastolic blood 2023-02-27 15:24:59 92 mm[Hg] Unive rsity of pressure [place] [facility] Heart rate 2023-02-27 15:24:59 87 /min Universi ty of [place] [facility] Body temperature 2023-02-27 15:24:59 36.61 [place] Univ ersity of [place] [facility] Respiratory rate 2023-02-27 15:24:59 16 /min Univ ersity of [place] [facility] Body height 2023-02-27 14:40:00 165.1 cm Universi ty of [place] [facility] Body weight 2023-02-27 14:40:00 99.565 kg Universi ty of [place] [facility] BMI 2023-02-27 14:40:00 36.53 kg/m2 Universi ty of [place] [facility] Oxygen saturation in 2023-02-27 14:40:00 98 /min University of Arterial blood by [place] [employer] denzel Pulse oximetry Branch Systolic blood 2023-01-26 00:30:00 130 mm[Hg] Univer sity of pressure [place] [facility] Diastolic blood 2023-01-26 00:30:00 78 mm[Hg] Unive rsity of pressure [place] [facility] Heart rate 2023-01-26 00:30:00 73 /min Universi ty of [place] [facility] Respiratory rate 2023-01-26 00:30:00 16 /min Univ ersity of [place] [facility] Oxygen saturation in 2023-01-26 00:30:00 99 /min University of Arterial blood by [place] [employer] denzel Pulse oximetry Branch Body temperature 2023-01-25 21:24:00 37 [place] Univ ersity of [place] [facility] Body weight 2023-01-25 21:24:00 99.791 kg Universi ty of [place] [facility] BMI 2023-01-25 21:24:00 35.51 kg/m2 Universi ty of [place] [facility] Systolic blood 2022-05-10 05:14:00 125 mm[Hg] Univer sity of pressure [place] [facility] Diastolic blood 2022-05-10 05:14:00 81 mm[Hg] Unive rsity of pressure [place] [facility] Heart rate 2022-05-10 05:14:00 62 /min Universi ty of [place] [facility] Respiratory rate 2022-05-10 05:14:00 17 /min Univ ersity of [place] [facility] Oxygen saturation in 2022-05-10 05:14:00 99 /min University of Arterial blood by [place] Medi denzel Pulse oximetry Branch Body temperature 2022-05-10 02:44:00 36.44 [place] Univ ersity of [place] [facility] Body height 2022-05-10 02:44:00 167.6 cm Universi ty of [place] [facility] Body weight 2022-05-10 02:44:00 103.828 kg Universi ty of [place] [facility] BMI 2022-05-10 02:44:00 36.95 kg/m2 Universi ty of [place] [facility] Systolic blood 2021-12-24 17:26:00 147 mm[Hg] Univer sity of pressure [place] [facility] Diastolic blood 2021-12-24 17:26:00 80 mm[Hg] Unive rsity of pressure [place] [facility] Heart rate 2021-12-24 17:26:00 71 /min Universi ty of [place] [facility] Body temperature 2021-12-24 17:26:00 36.17 [place] Univ ersity of [place] [facility] Respiratory rate 2021-12-24 17:26:00 18 /min Univ ersity of [place] [facility] Body weight 2021-12-24 17:26:00 86.183 kg Universi ty of [place] [facility] BMI 2021-12-24 17:26:00 29.76 kg/m2 Universi ty of [place] [facility] Oxygen saturation in 2021-12-24 17:26:00 99 /min University of Arterial blood by [facility] Pulse oximetry Branch Systolic blood 2021-12-08 18:45:00 131 mm[Hg] Univer sity of pressure [place] [facility] Diastolic blood 2021-12-08 18:45:00 91 mm[Hg] Unive rsity of pressure [place] [facility] Heart rate 2021-12-08 18:45:00 86 /min Universi ty of [place] [facility] Body temperature 2021-12-08 18:45:00 36.72 [place] Univ ersity of [place] [facility] Respiratory rate 2021-12-08 18:45:00 18 /min Univ ersity of [place] [facility] Body weight 2021-12-08 18:45:00 86.183 kg Universi ty of [place] [facility] BMI 2021-12-08 18:45:00 29.76 kg/m2 Universi ty [facility] [place] [facility] Oxygen saturation in 2021-12-08 18:45:00 98 /min University of Arterial blood by [facility] Pulse oximetry Branch Systolic blood 2021-10-13 13:42:00 123 mm[Hg] Univer sity of pressure [facility] Branch Diastolic blood 2021-10-13 13:42:00 78 mm[Hg] Unive rsity of pressure [place] [facility] [facility] Heart rate 2021-10-13 13:42:00 86 /min [facility] Body temperature 2021-10-13 13:42:00 36.78 [place] Univ ersity of [facility] Respiratory rate 2021-10-13 13:42:00 18 /min [facility] Body weight 2021-10-13 13:42:00 86.183 kg [facility] BMI 2021-10-13 13:42:00 29.76 kg/m2 [facility] Oxygen saturation in 2021-10-13 13:42:00 98 /min University of Arterial blood by [facility] Pulse oximetry Branch Systolic blood 2021-09-23 16:00:00 128 mm[Hg] Univer sity of pressure [facility] Diastolic blood 2021-09-23 16:00:00 79 mm[Hg] Unive rsity of pressure [facility] Heart rate 2021-09-23 16:00:00 79 /min [facility] Body temperature 2021-09-23 16:00:00 36.72 [place] Univ [facility] Oxygen saturation in 2021-09-23 16:00:00 100 /min University of Arterial blood by [facility] Pulse oximetry Branch Respiratory rate 2021-09-23 14:25:00 18 /min Univ [facility] Body height 2021-09-23 14:25:00 170.2 cm [facility] Body weight 2021-09-23 14:25:00 86.183 kg [facility] BMI 2021-09-23 14:25:00 29.76 kg/m2 Universi ty [facility] Procedures Procedure Date / Time Performing Clinician Source Performed CONSENT/REFUSAL FOR 2023-02-27 14:29:44 Doctor Unassigned, No Un [facility] DIAGNOSIS AND TREATMENT Name Medical Branch COMP. METABOLIC PANEL 2023-01-25 22:42:00 Jessica Ballard [facility] ([id number]) Medical Branch ETHANOL 2023-01-25 22:42:00 Jessica Ballard [facility] CBC WITH DIFF 2023-01-25 22:42:00 Jessica Ballard [facility] URINALYSIS 2023-01-25 22:42:00 Jessica Ballard [facility] LACTIC ACID WHOLE BLOOD 2023-01-25 22:42:00 Jessica Ballard [facility] URINE DRUG (IMMUNOASSAY) 2023-01-25 22:42:00 Jessica Ballard [facility] Medical [facility] SCREEN W/O REFLEX POCT TEST 2023-01-25 22:26:00 Jessica Ballard [facility] CONSENT/REFUSAL FOR 2023-01-25 21:10:53 Doctor Unassigned, No Un [facility] [place] [facility] TREAT[facility] LIPASE 2022-05-10 03:37:00 Farzaneh Ma [facility] COMP. METABOLIC PANEL 2022-05-10 03:37:00 Farzaneh Ma [facility] ([id number]) [facility] CBC WITH DIFF 2022-05-10 03:37:00 Farzaneh Ma [facility] POCT TEST 2022-05-10 02:49:00 Farzaneh Ma [facility] URINALYSIS 2022-05-10 02:48:00 Farzaneh Ma [facility] NOTICE OF PRIVACY 2022-05-10 02:33:25 [facility]REFUSAL FOR 2022-05-10 02:31:34 Doctor Unassigned, No Un [facility] [place] DI[facility] TREATMENT Name [facility] CONSENT/REFUSAL FOR 2021-12-24 17:15:06 Doctor Unassigned, No Un [facility] [place] [facility]REAT[facility] NOTICE OF PRIVACY 2021-12-08 18:35:32 Doctor Unassigned, No Univ ersity [facility] Medical Branch CONSENT/REFUSAL FOR 2021-12-08 18:35:08 Doctor Unassigned, No Un [facility] [place] DIAGNOSIS AND TREATMENT Name Medical Branch ASSIGNMENT OF BENEFITS 2021-10-13 13:51:35 Doctor Unassigned, No [facility] Name Medical Branch CONSENT/REFUSAL FOR 2021-10-13 13:36:21 Doctor Unassigned, No [facility] [place] [facility] Name Medical Branch COMP. METABOLIC PANEL 2021-09-23 15:35:00 MataSridhar trinh [facility] ([id number]) Medical Branch LIPASE 2021-09-23 14:59:00 [place] [facility] CBC WITH DIFF 2021-09-23 14:59:00 [facility] CONSENT/REFUSAL FOR 2021-09-23 14:17:56 Doctor Unassigned, No [facility] [place] DIAGNOSIS AND TREATMENT Name [facility] Encounters Start End Encounter Admission Attending Care Care Encounter Source Date/Time Date/Time Type Type Clinicians Facility Department ID 2023-02-27 2023-02-27 Emergency [facility] [id number] Univers 09:51:00 11:40:00 FARZANEH busby [facility] 2023-02-27 2023-02-[address] [facility] ([place], [place]) [id number] Univers 09:51:00 11:40:00 Farzaneh OWENS [id number] [facility] 4.2.7.2.686 [facility] [id number] [address] 2023-01-25 2023-01-25 Emergency [facility] [id number] Univers 16:25:00 19:50:00 JESSICA busby [facility] 2023-01-25 2023-01-25 Emergency [facility] [id number] Univers 16:25:00 19:50:00 Jessica OWENS [id number] i ty [facility] 4.2.7.2.686 [facility] [id number] [address] 2022-05-09 2022-05-10 Emergency X [facility] ERT [id number] Univers 21:49:00 00:20:00 FARZANEH busby [facility] 2022-05-09 2022-05-10 Emergency [facility] [id number] Univers 21:49:00 00:20:00 Farzaneh Peter ROMAN [id number] ity [facility] 4.2.7.2.686 [facility] [id number] [address] 2021-12-24 2021-12-24 Emergency [facility] [id number] Univers 11:28:00 13:33:00 JAYY busby [facility] 2021-12-24 2021-12-24 Emergency [facility] [id number] Univers 11:28:00 13:33:00 Jayy OWENS [id number] i ty [facility] 4.2.7.2.686 [facility] [id number] [address] 2021-12-08 2021-12-08 Emergency [facility]RT [id number] Univers 12:45:00 14:51:00 SRIDHAR busby [facility] 2021-12-08 2021-12-08 Emergency [facility] [id number] Univers 12:45:00 14:51:00 Sridhar OWENS [id number] i asael [facility] 4.2.7.2.[address] [place] [id number] 2021-10-13 2021-10-13 Emergency [facility] [id number] Univers 07:44:00 07:58:00 LATHA ity [facility] 2021-10-13 2021-10-13 Emergency [facility] [id number] Univers 07:44:00 07:58:00 Latha OWENS [id number] ity [facility] 4.2.7.2.[address] [place] [id number] 2021-09-23 2021-09-23 Emergency X [facility] ERT [id number] Univers 08:30:00 10:37:00 SRIDHAR ity [facility] 2021-09-23 2021-09-23 Emergency , [place] [id number] Univers 08:30:00 10:37:00 Sridhar ROMAN [id number] i ty of [facility] 4.2.7.2.686 [facility] [id number] [facility] [address] [place] [address] 2020-11-25 2020-11-25 Emergency Kyra Medeiros [place] [id number] 15:24:00 20:37:00 Natwill Owens 350.1.13.10 [place] 4.2.7.2.686 [place] [id number] [facility] 2020-11-25 2020-11-25 Emergency X [facility] ERT [id number] Univers 15:14:00 15:14:00 ity [facility] 2020-10-31 2020-10-31 Emergency Jack Brower [place] [id number] 09:18:00 12:22:00 Gaby Custar [id number] [place] 4.2.7.2.686 [place] [id number] [facility] 2020-10-31 2020-10-31 Emergency X JACK BROWER [place] ERT [id number] Univers 09:18:00 09:18:00 ity [facility] 2020-09-11 2020-09-11 Emergency Kyra Medeiros [place] [id number] 14:32:00 16:08:00 Natwill Owens 350.1.13.10 [place] 4.2.7.2.686 [place] [id number] [facility] 2020-09-11 2020-09-11 Emergency X Kyra MEDEIROS [place] ERT [id number] Univers 14:32:00 14:32:00 ity [facility] 2020-02-03 2020-02-03 Emergency Giaviviana [place] [id number] 17:08:08 18:20:00 Anjali Custar 350.1.13.10 [place] 4.2.7.2.686 [place] [id number] 082020-02-03 2020-02-03 [facility] [id number] Univers 17:00:00 17:00:00 ANJALI [facility] 2020-02-03 2020-02-03 Orders Doctor DAVID [id number] 00:00:00 00:00:00 Only Unassigned, ANGIE 350.1.13.10 [place] [facility] 4.2.7.2.686 [id number] 009 2020-01-10 2020-01-11 Emergency [place] [id number] 23:46:02 01:01:00 Roman 350.1.13.10 [place] 4.2.7.2.686 [place] [id number] 084 2020-01-10 2020-01-10 Emergency X [place] ERT [id number] Univers 23:02:00 23:02:00 ity [facility] 2019-12-18 2019-12-18 Emergency X Kyra MEDEIROS [place] ERT [id number] Univers 17:24:37 18:57:00 ity [facility] 2019-12-18 2019-12-18 Emergency Kyra Medeiros [place] [id number] 17:24:37 18:57:00 Nat Owens 350.1.13.[address] [place] [id number] 084 2019-12-18 2019-12-18 Orders Doctor DAVID [id number] 00:00:00 00:00:00 Only Unassigned, ANGIE [id number] [place] [facility] 4.2.7.2.686 [id number] 009 2019-06-29 2019-06-29 Emergency [facility] [id number] 02:13:29 04:06:00 Jose David Owens 350.1.13.10 [place] 4.2.7.2.686 [place] [id number] 084 Results Test Description Test Time Test Comments Results Result [facility] e Comments ETHANOL 2023-01-25 ALCOHOL<10mg/dL0 Universi ty of 23:29:13 01/25/2023 6:29 [facility]<10 Dibcmapz59-839 Toxic>100 Depression of [employer]>400 Fatalities Reported COMP. METABOLIC PANEL ([id number]) 2023-01-25 23:23:54 Test Item Value Reference Range Interpretation Comme nts NA (test code = 0244489795) 138 mmol/L 135-145 K (test code = 3588855989) 4.3 mmol/L 3.5-5.0 CL (test code = 8926330260) 104 mmol/L 98-108 CO2 TOTAL (test code = 24 mmol/L 23-31 5103485876) AGAP (test code = 3093494815) 10 2-16 BUN (test code = 7192925633) 15 mg/dL 7-23 GLUCOSE (test code = 2174229439) 84 mg/dL 70-110 CREATININE (test code = 0.89 mg/dL 0.50-1.04 3497088028) TOTAL BILI (test code = 0.5 mg/dL 0.1-1.5 6272043454) CALCIUM (test code = 3970112877) 9.2 mg/dL 8.6-10.6 T PROTEIN (test code = 7.2 g/dL 6.3-8.2 5415819590) ALBUMIN (test code = 7448352191) 4.3 g/dL 3.5-5.0 ALK PHOS (test code = 2740590709) 37 U/L 34-122 ALTv (test code = 1742-6) 18 U/L 5-35 AST(SGOT) (test code = 21 U/L 13-40 9347741646) eGFR (test code = 9537712660) 74.0 mL/min/1.73m2 JASMYN (test code = JASMYN) Association [...] or urine or abnormalities in imaging tests). [facility] WITH [id number] 23:10:11 Test Item Value Reference Range Interpretation Comments WBC (test code = 7.27 See_Comment [Automated 6690-2) message] The sy stem which generated this result transmitted reference range : 4.30 - 11.10 10*3/?L. The reference range was not used to interpret this result as normal/abnormal . RBC (test code = 4.69 See_Comment [Automated 789-8) message] The sy stem which generated this result transmitted reference range : 3.93 - 5.25 10*6/?L. The reference range was not used to interpret this result as normal/abnormal . HGB (test code = 11.1 g/dL 11.6-15.0 L 718-7) HCT (test code = 36.9 % 35.7-45.2 4544-3) MCV (test code = 78.7 fL 80.6-95.5 L 787-2) MCH (test code = 23.7 pg 25.9-32.8 L 785-6) MCHC (test code = 30.1 g/dL 31.6-35.1 L 786-4) RDW-SD (test code = 46.2 fL 39.0-49.9 94219-1) RDW-CV (test code = 16.4 % 12.0-15.5 H 788-0) PLT (test code = 381 See_Comment H [Automated 777-3) message] The sy stem which generated this result transmitted reference range : 166 - 358 10*3/ ?L. The reference r juliano was not used to interpret this result as normal/abnormal . MPV (test code = 10.0 fL 9.5-12.9 88126-2) NRBC/100 WBC (test 0.0 See_Comment [Automat ed code = 1172176101) message] The system which generated this result transmitted reference range : 0.0 - 10.0 /100 WBCs. The refer ence range was not u sed to interpret th is result as normal/abnormal . NRBC x10^3 (test code See_Comment [Auto mated = 9954595268) message] The s ystem which generated this result transmitted reference range : 10*3/?L. The reference range was not used to interpret this result as normal/abnormal . GRAN MAT (NEUT) % 61.7 % (test code = 770-8) IMM GRAN % (test code 0.60 % = 6118885951) LYMPH % (test code = 28.1 % 736-9) MONO % (test code = 6.2 % 5905-5) EOS % (test code = 2.8 % 713-8) BASO % (test code = 0.6 % 706-2) GRAN MAT x10^3(ANC) 4.50 10*3/uL 1.88-7.09 (test code = 1501994946) IMM GRAN x10^3 (test 0.04 10*3/uL 0.00-0.06 code = 4294409659) LYMPH x10^3 (test code 2.04 10*3/uL 1.32-3.29 = 731-0) MONO x10^3 (test code 0.45 10*3/uL 0.33-0.92 = 742-7) EOS x10^3 (test code = 0.20 10*3/uL 0.03-0.39 711-2) BASO x10^3 (test code 0.04 10*3/uL 0.01-0.07 = 704-7) Lab Interpretation Abnormal (test code = 28635-1) [facility] [id number] 22:26:00 Test Item Value Reference Range Interpretation Comments POCT PREG (test code = 1605) neg On board controls acceptable with C present Line (test code = 3574) Lab Interpretation (test code = Normal 54230-8) [facility]. METABOLIC PANEL (15267)2022-05-10 04:28:49 Test Item Value Reference Range Interpretation Comments NA (test code = 138 mmol/L 135-145 4930833231) K (test code = 4.2 mmol/L 3.5-5.0 8855777607) CL (test code = 104 mmol/L 98-108 6969187139) CO2 TOTAL (test code 25 mmol/L 23-31 = 2746277742) AGAP (test code = 2-16 2271007205) BUN (test code = 9 mg/dL 7-23 2720708145) GLUCOSE (test code = 103 mg/dL 70-110 2258140736) CREATININE (test code 0.78 mg/dL 0.50-1.04 = 4770430418) TOTAL BILI (test code 0.3 mg/dL 0.1-1.1 = 5044103420) CALCIUM (test code = 9.4 mg/dL 8.6-10.6 5908671364) T PROTEIN (test code 7.1 g/dL 6.3-8.2 = 9404225825) ALBUMIN (test code = 4.4 g/dL 3.5-5.0 4632406813) ALK PHOS (test code = 55 U/L 34-122 7934437843) ALTv (test code = 25 U/L 5-35 1742-6) AST(SGOT) (test code 23 U/L 13-40 = 9359155212) eGFR (test code = mL/min/1.73m2 1384983290) JASMYN (test code = JASMYN) Association of [...] or abnormalities in imaging tests). [facility] 04:28:29 Test Item Value Reference Range Interpretation Comments LIPASE (test code = 0960794001) 58 U/L 0-220 Lab Interpretation (test code = Normal 19187-4) [facility] WITH [id number] 03:54:04 Test Item Value Reference Range Interpretation Comments WBC (test code = See_Comment [Automated 5790-2) message] The sy stem which generated this result transmitted reference range : 4.30 - 11.10 10*3/?L. The reference range was not used to interpret this result as normal/abnormal . RBC (test code = See_Comment [Automated 824-8) message] The sy stem which generated this [...] RDW-SD (test code = 46.1 fL 39.0-49.9 69270-1) RDW-CV (test code = 16.5 % 12.0-15.5 H 788-0) PLT (test code = See_Comment H [Automated 777-3) message] The sy stem which generated this result transmitted reference range : 166 - 358 10*3/ ?L. The reference r juliano was not used to interpret this result as normal/abnormal . MPV (test code = 10.0 fL 9.5-12.9 43381-4) NRBC/100 WBC (test See_Comment [Automat ed code = 6024287700) message] The system which generated this result transmitted reference range : 0.0 - 10.0 /100 WBCs. The refer ence range was not u sed to interpret th is result as normal/abnormal . NRBC x10^3 (test code <0.01 See_Comment [Auto mated = 8670956937) message] The s ystem which generated this result transmitted reference range : 10*3/?L. The reference range was not used to interpret this result as normal/abnormal . GRAN MAT (NEUT) % 57.9 % (test code = 770-8) IMM GRAN % (test code 0.10 % = 2842451975) LYMPH % (test code = 31.1 % 736-9) MONO % (test code = 7.2 % 5905-5) EOS % (test code = 3.4 % 713-8) BASO % (test code = 0.3 % 706-2) GRAN MAT x10^3(ANC) 4.08 10*3/uL 1.88-7.09 (test code = 4649308410) IMM GRAN x10^3 (test <0.03 0.00-0.06 code = 7672563146) LYMPH x10^3 (test code 2.19 10*3/uL 1.32-3.29 = 731-0) MONO x10^3 (test code 0.51 10*3/uL 0.33-0.92 = 742-7) EOS x10^3 (test code = 0.24 10*3/uL 0.03-0.39 711-2) BASO x10^3 (test code <0.03 0.01-0.07 = 704-7) Lab Interpretation Abnormal (test code = 04596-9) [facility] [id number] 02:49:00 Test Item Value Reference Range Interpretation Comments POCT PREG (test code = 1605) Negative On board controls acceptable with Positive C Line (test code = 3574) POCT PREG LOT # (test code = HCG [id number]) POCT PREG TEST DATE (test 08/31/2023 code = 3576) Lab Interpretation (test code = Normal 61634-6) [facility] METABOLIC PANEL (09997)2021-09-23 16:10:10 Test Item Value Reference Range Interpretation Comments NA (test code = 135 mmol/L 135-145 6638086592) K (test code = 4.5 mmol/L 3.5-5.0 4864426128) CL (test code = 101 mmol/L 98-108 1371466773) CO2 TOTAL (test code 28 mmol/L 23-31 = 7704270351) AGAP (test code = 2-16 6606831056) BUN (test code = 19 mg/dL 7-23 3764779776) GLUCOSE (test code = 94 mg/dL 70-110 9180441541) CREATININE (test code 0.83 mg/dL 0.50-1.04 = 9444295792) TOTAL BILI (test code 0.5 mg/dL 0.1-1.1 = 7503259461) CALCIUM (test code = 9.9 mg/dL 8.6-10.6 1334983234) T PROTEIN (test code 7.6 g/dL 6.3-8.2 = 2323967257) ALBUMIN (test code = 4.5 g/dL 3.5-5.0 0009478035) ALK PHOS (test code = 52 U/L 34-122 1889073343) ALTv (test code = 15 U/L 5-35 1742-6) AST(SGOT) (test code 21 U/L 13-40 = 5194883928) eGFR (test code = mL/min/1.73m2 6656086951) JASMYN (test code = JASMYN) Association of [...] or abnormalities in imaging tests). [facility]21-[facility]-23 15:52:35 Test Item Value Reference Range Interpretation Comments LIPASE (test code = 2079294643) 72 U/L 0-220 Lab Interpretation (test code = Normal 14138-1) [facility] WITH [id number] 15:37:27 Test Item Value Reference Range Interpretation Comments WBC (test code = See_Comment [Automated 2532-2) message] The sy stem which generated this result transmitted reference range : 4.30 - 11.10 10*3/?L. The reference range was not used to interpret this result as normal/abnormal . RBC (test code = See_Comment [Automated 902-9) message] The sy stem which generated this [...] RDW-SD (test code = 43.4 fL 39.0-49.9 67521-6) RDW-CV (test code = 14.0 % 12.0-15.5 788-0) PLT (test code = See_Comment H [Automated 777-3) message] The sy stem which generated this result transmitted reference range : 166 - 358 10*3/ ?L. The reference r juliano was not used to interpret this result as normal/abnormal . MPV (test code = 10.4 fL 9.5-12.9 83851-2) NRBC/100 WBC (test See_Comment [Automat ed code = 9186397737) message] The system which generated this result transmitted reference range : 0.0 - 10.0 /100 WBCs. The refer ence range was not u sed to interpret th is result as normal/abnormal . NRBC x10^3 (test code <0.01 See_Comment [Auto mated = 7163547982) message] The s ystem which generated this result transmitted reference range : 10*3/?L. The reference range was not used to interpret this result as normal/abnormal . GRAN MAT (NEUT) % 60.5 % (test code = 770-8) IMM GRAN % (test code 0.30 % = 8416536166) LYMPH % (test code = 28.4 % 736-9) MONO % (test code = 6.4 % 5905-5) EOS % (test code = 3.6 % 713-8) BASO % (test code = 0.8 % 706-2) GRAN MAT x10^3(ANC) 3.71 10*3/uL 1.88-7.09 (test code = 8872738030) IMM GRAN x10^3 (test <0.03 0.00-0.06 code = 6451621465) LYMPH x10^3 (test code 1.74 10*3/uL 1.32-3.29 = 731-0) MONO x10^3 (test code 0.39 10*3/uL 0.33-0.92 = 742-7) EOS x10^3 (test code = 0.22 10*3/uL 0.03-0.39 711-2) BASO x10^3 (test code 0.05 10*3/uL 0.01-0.07 = 704-7) Lab Interpretation Abnormal (test code = 25017-5) [facility]"
[2023-04-26 19:24] LABS: Specific Gravity 1.008 (1.005-1.030)
[2023-04-26 19:26] LABS: Specific Gravity 1.008 (1.005-1.030); Urine Bacteria <20 /HPF (<20); Urine Bilirubin NEGATIVE (Negative); Urine Blood Negative (Negative); Urine Clarity Turbid (Clear); Urine Color Colorless (Yellow); Urine Glucose NEGATIVE (Negative); Urine Protein NEGATIVE (Negative); Urine RBC <5 /HPF (None Seen); Urine Urobilinogen Normal (Normal); Urine pH 6.5 (5.0-7.0)
[2023-04-26 19:38] LABS: Absolute Lymphocytes (CBC) 2.1 K/uL (0.7-4.9); Hematocrit 34.9 % (36.0-45.0); MCV 74.1 fL (80-100); RBC Red Blood Cell Count 4.71 M/uL (3.86-4.86)
[2023-04-26] MEDS ORDERED: MORPHINE 4 MG/ML SYR ONE ×2 (19:42→22:33)
[2023-04-26] MEDS ORDERED: ONDANSETRON 4 MG/2 ML VIAL ONE (19:42)
[2023-04-26] MEDS ORDERED: NA CHLORIDE 0.9% 1,000 ML ONE (19:42)
[2023-04-26 20:01] LABS: Albumin 3.8 g/dL (3.4-5.0); Bilirubin Total 0.2 mg/dL (0.2-1.0); Potassium 3.7 mEq/L (3.5-5.1); Protein, Total 7.5 g/dL (6.4-8.2)
--- NOTE | 2023-04-26 20:50 | RAD REPORT ---
EXAM DESCRIPTION: CT - Abdomen Pelvis W Contrast - 04/26/2023 8:37 pm CLINICAL HISTORY: Abdominal pain COMPARISON: 2021 TECHNIQUE: Computed axial tomography of the abdomen pelvis was obtained. 100 cc Isovue-300 was admin istered intravenously. Oral contrast was not requested which limits evaluation of bowel and appendix All CT scans are performed using dose optimization technique as appropriate and may include automated exposure control or mA/KV adjustment according to patient size. FINDINGS: The liver, spleen, pancreas, adrenal and kidneys appear unremarkable. There is no evidence of diverticulitis. Normal appendix 16 millimeter irregularly-shaped left ovarian follicle has likely recently ruptured. No significant f ree fluid Small umbilical hernia IMPRESSION: 16 millimeter irregularly-shaped left ovarian follicle has likely recently ruptured. No significant free fluid
--- NOTE | 2023-04-26 22:12 | RAD REPORT ---
EXAM DESCRIPTION: Kwadwo Single View04/26/2023 10:05 pm CLINICAL HISTORY: Abdominal pain COMPARISON: 2021 FINDINGS: The lungs appear clear of acute infiltrate. The heart is normal size IMPRESSION: No acute abnormalities displayed
--- NOTE | 2023-04-26 22:15 | RAD REPORT ---
EXAM DESCRIPTION: US - Abdomen Exam Limited - 04/26/2023 10:01 pm CLINICAL HISTORY: Abdominal pain. COMPARISON: None. FINDINGS: The gallbladder wall is not thickened. A gallstone is not seen. The biliary tree is normal caliber. IMPRESSION: Unremarkable gallbladder ultrasound.
--- NOTE | 2023-04-26 22:36 | EDPHYS ---
Physician Documentation [facility] Name: Genesis Hu Age: 32 yrs Sex: Female : 1990 Arrival Date: 04/26/2023 Time: 18:34 Bed 15 Private MD: ED Physician Timmy Barerra HPI: 04/26 19:05 This 32 yrs old Female presents to ER via Ambulatory with complaints of Abdominal Pain. cp 19:05 The patient presents with abdominal pain in the right upper quadrant, right lower cp quadrant. Onset: The symptoms/episode began/occurred 1 week(s) ago. 19:05 Associated signs and symptoms: Pertinent positives: nausea, Pertinent negatives: cp constipation, diarrhea, active vomiting. The patient has been recently seen at an urgent care, for similar complaints, and was sent to the [facility] Emergency Department for further evaluation. Historical: - Allergies: 18:43 Amoxicillin; nj1 18:43 Bleach (Sodium Hypochlorite); nj1 18:43 Latex, Natural Rubber; nj1 18:43 PENICILLINS; nj1 - PMHx: 18:43 hiatal hernia; PCOS; peptic ulcer; nj1 - PSHx: 18:43 section; tubal ligation; nj1 - Immunization history:: Client reports having NOT received the Covid vaccine. - Social history:: Smoking status: Patient denies any tobacco usage or history of. ROS: 19:10 Constitutional: Negative for body aches, chills, fever, poor PO intake. cp 19:10 Eyes: Negative for injury, pain, redness, and discharge. cp 19:10 ENT: Negative for drainage from ear(s), ear pain, sore throat, difficulty swallowing, difficulty handling secretions. 19:10 Cardiovascular: Negative for chest pain. 19:10 Respiratory: Negative for cough, shortness of breath, wheezing. 19:10 Abdomen/GI: Positive for abdominal pain, nausea, of the epigastric area, right upper quadrant and right lower quadrant, Negative for diarrhea, constipation. 19:10 Back: Positive for radiated pain. 19:10 Neuro: Negative for altered mental status, dizziness, headache, weakness. 19:10 All other systems are negative. cp Exam: 19:20 Constitutional: The patient appears in no acute distress, alert, awake, cp non-diaphoretic, non-toxic, well developed, well nourished, uncomfortable. 19:20 Head/Face: Normocephalic, atraumatic. cp 19:20 Eyes: Periorbital structures: appear normal, Conjunctiva: normal, no exudate, no cp injection, Sclera: no appreciated abnormality, Lids and lashes: appear normal, bilaterally. 19:20 ENT: External ear(s): are unremarkable, Nose: is normal, Mouth: Lips: moist, Oral cp mucosa: pink and intact, moist, Posterior pharynx: is normal, airway is patent, no erythema, no exudate. 19:20 Chest/axilla: Inspection: normal. 19:20 Cardiovascular: Rate: normal, Rhythm: regular. 19:20 Respiratory: the patient does not display signs of respiratory distress, Respirations: normal, no use of accessory muscles, no retractions, labored breathing, is not present, Breath sounds: are clear throughout, no decreased breath sounds, no stridor, no wheezing. 19:20 Abdomen/GI: Inspection: abdomen appears normal, Bowel sounds: active, all quadrants, Palpation: soft, in all quadrants, moderate abdominal tenderness, in the anterior aspect of right lateral abdomen, right upper quadrant and right lower quadrant, rebound tenderness, is not appreciated, involuntary guarding, is not appreciated. 19:20 Back: CVA tenderness, is absent. 19:20 Skin: cellulitis, is not appreciated, no rash present. Vital Signs: 18:40 BP 131 / 79; Pulse 77; Resp 18; Temp 99.2(O); Pulse Ox 100% ; Weight 99.79 kg; Height 5 nj1 ft. 5 in. ; Pain 10/10; 21:26 BP 124 / 80; Pulse 77; Resp 17; Pulse Ox 100% on R/A; rv 22:15 BP 126 / 78; Pulse 69; Resp 17 S; Pulse Ox 100% on R/A; ha1 18:40 Body Mass Index 36.61 (99.79 kg, 165.1 cm) nj1 18:40 Pain Scale: Adult nj1 [employer] Coma Score: 22:55 Eye Response: spontaneous(4). Motor Response: obeys commands(6). Verbal Response: rv oriented(5). Total: 15. MDM: 18:52 Patient medically screened. cp 20:00 Differential diagnosis: appendicitis, cholecystitis, Cholelithiasis, diverticulitis, cp non-specific abd pain, pancreatitis, Peptic Ulcer Disease, Perf. Duodenal Ulcer, Perf. Gastric Ulcer, Pyelonephritis, Ureterolithiasis, urinary tract infection. 22:35 Data reviewed: vital signs, nurses notes, lab test result(s), radiologic studies, CT cp scan, plain films, ultrasound. 22:35 Consideration of Admission/Observation Escalation of care including cp admission/observation considered. I considered the following discharge prescriptions or medication management in the emergency department Medications were administered in the Emergency Department. See MAR. Counseling: I had a detailed discussion with the patient and/or guardian regarding: the historical points, exam findings, and any diagnostic results supporting the discharge/admit diagnosis, lab results, radiology results, the need for outpatient follow up, a wellness program manager, to return to the emergency department if symptoms worsen or persist or if there are any questions or concerns that arise at home. Response to treatment: the patient's symptoms have markedly improved after treatment, and as a result, I will discharge patient. Special discussion: Based on the patient's Hx, exam, and Dx evaluation, there is no indication for emergent surgery or inpatient Tx. It is understood by the patient/guardian that if the Sx's persist or worsen they need to return immediately for re-evaluation. 04/26 19:00 Order name: Urine W/Microscopic (UAM); Complete Time: 21:30 04/26 21:30 Interpretation: Normal except: [facility] Turbid; UESTR 25. 04/26 19:00 Order name: PREGU; Complete Time: 21:30 04/26 19:23 Order name: Test, Serum; Complete Time: 21:30 04/26 19: Order name: CBC with Diff; Complete Time: 21:30 04/26 21:30 Interpretation: Normal except: HGB 10.7; HCT 34.9; MCV 74.1; MCH 22.7; MCHC 30.6; RDW cp 17.1. 04/26 19: Order name: CMP; Complete Time: 21:30 04/26 21:30 Interpretation: Normal except: NA 134; AST 10; ALK 39; GLOB 3.7; A/G 1.0. 04/26 19: Order name: Lipase; Complete Time: 21:30 04/26 19:23 Order name: CT Abd/Pelvis - IV Contrast Only; Complete Time: 21:30 cp 04/26 21:32 Order name: XRAY Chest (1 view); Complete Time: 22:24 cp 04/26 22:24 Interpretation: Report review. cp 04/26 21:32 Order name: US Abdomen Limited: gallbladder; Complete Time: 22:24 cp 04/26 22:25 Interpretation: Report reviewed. cp 04/26 19:23 Order name: IV Saline Lock; Complete Time: 19:39 cp 04/26 19:23 Order name: Labs collected and sent; Complete Time: 19:39 cp 04/26 21:32 Order name: NPO; Complete Time: 21:34 cp Administered Medications: 19:39 Drug: NS 0.9% IV 1000 ml Route: IV; Rate: 1 bolus; Site: right antecubital; rv 21:30 Follow up: IV Status: Completed infusion; IV Intake: 1000ml rv 19:39 Drug: Ondansetron IVP 4 mg Route: IVP; Site: right antecubital; rv 21:29 Follow up: Response: No adverse reaction rv 19:39 Drug: morphine IVP or IV 4 mg Route: IVP; Infused Over: 4 mins; Site: right antecubital;rv 21:29 Follow up: Response: No adverse reaction; Pain is decreased rv 22:27 Drug: morphine IVP or IV 4 mg Route: IVP; Infused Over: 4 mins; Site: right antecubital;ha1 22:55 Follow up: Response: No adverse reaction rv Disposition Summary: 04/26/23 22:36 Discharge Ordered Location: Home cp Problem: new cp Symptoms: have improved cp Condition: Stable cp Diagnosis - Abdominal pain, unspecified cp Followup: cp - With: Guillermo Dumont MD - When: 2 - 3 days - Reason: Recheck today's complaints Discharge Instructions: - Discharge Summary Sheet cp - Abdominal Pain, Adult cp Forms: - Medication Reconciliation Form cp - Thank You Letter cp - Antibiotic Education cp - Prescription Opioid Use cp - [email or web address]_[email or web address] cp - Work release form rv Prescriptions: - Zofran 4 mg Oral Tablet - take 1 tablet by ORAL route every 12 hours As needed; 20 tablet; Refills: 0, cp Product Selection Permitted - Carafate 1 gram Oral Tablet - take 2 tablets by ORAL route every 12 hours take on an empty stomach, beginning cp on waking and last dose at bedtime. dissolve tablet in 6 oz warm water prior to ingestion; 100 tablet; Refills: 0, Product Selection Permitted - dicyclomine 20 mg Oral Tablet - take 1 tablet by ORAL route 4 times per day; 30 tablet; Refills: 0, Product cp Selection Permitted Signatures: Dispatcher [employer] EDAK Eddie Alonzo PA PA cp Vicente, Ronaldo RN RN Lynn Ramsay RN RN ha1 Alba Olsen RN RN nj1
--- NOTE | 2023-04-26 22:36 | ER ---
Nurse's Notes [facility] Name: Genesis Hu Age: 32 yrs Sex: Female : 1990 Arrival Date: 04/26/2023 Time: 18:34 Bed 15 Private MD: Diagnosis: Abdominal pain, unspecified Presentation: 04/26 18:40 Chief complaint: Patient states: Went to urgent care to be checked for abdominal pain nj1 that started about a week ago, had a negative test, given an IM injection for pain and told to come to ED for further testing. Coronavirus screen: Vaccine status: Patient reports being unvaccinated. Ebola Screen: Patient denies travel to an Ebola-affected area in the 21 days before illness onset. Initial Sepsis Screen: Does the patient meet any 2 criteria? No. Patient's initial sepsis screen is negative. Does the patient have a suspected source of infection? No. Patient's initial sepsis screen is negative. Risk Assessment: Do you want to hurt yourself or someone else? Patient reports no desire to harm self or others. Onset of symptoms was April 19, 2023. 18:40 Method Of Arrival: Ambulatory nj1 18:40 Acuity: KRISTIN 3 nj1 Historical: - Allergies: 18:43 Amoxicillin; nj1 18:43 Bleach (Sodium Hypochlorite); nj1 18:43 Latex, Natural Rubber; nj1 18:43 PENICILLINS; nj1 - PMHx: 18:43 hiatal hernia; PCOS; peptic ulcer; nj1 - PSHx: 18:43 section; tubal ligation; nj1 - Immunization history:: Client reports having NOT received the Covid vaccine. - Social history:: Smoking status: Patient denies any tobacco usage or history of. Screenin:00 [facility] ED Fall Risk Assessment (Adult) History of falling in the last 3 months, rv including since admission No falls in past 3 months (0 pts) Confusion or Disorientation No (0 pts) Intoxicated or Sedated No (0 pts) Impaired Gait No (0 pts) Mobility Assist Device Used No (0 pt) Altered Elimination No (0 pt) Score/Fall Risk Level 0 - 2 = Low Risk Oriented to surroundings, Maintained a safe environment, Educated pt \T\ family on fall prevention, incl call for assistance when getting out of bed, Assessed \T\ reinforced patient's understanding of fall precautions, Provided non-skid footwear, Hourly rounding (assess needs \T\ fall precautionary measures) done, Used ambulatory aids as needed (educated on \T\ assisted with), Used gait belt as appropriate. Abuse screen: Denies threats or abuse. Denies injuries from another. 19:00 Nutritional screening: No deficits noted. Tuberculosis screening: No symptoms or risk rv factors identified. Assessment: 19:00 General: Appears uncomfortable, Behavior is calm, cooperative. rv 19:00 Pain: Complains of pain in abdomen. Neuro: Level of Consciousness is awake, alert, rv obeys commands, Oriented to person, place, time, situation. Cardiovascular: Capillary refill < 3 seconds. Respiratory: Airway is patent Respiratory effort is even, unlabored. GI: Bowel sounds present X 4 quads. Abdomen is tender to palpation in right upper quadrant and right lower quadrant. : No signs and/or symptoms were reported regarding the genitourinary system. 22:25 Reassessment: Patient and/or family updated on plan of care and expected duration. Pain ha1 level reassessed. Patient is alert, oriented x 3, equal unlabored respirations, skin warm/dry/pink. pain 9/10. Vital Signs: 18:40 BP 131 / 79; Pulse 77; Resp 18; Temp 99.2(O); Pulse Ox 100% ; Weight 99.79 kg; Height 5 nj1 ft. 5 in. ; Pain 10/10; 21:26 BP 124 / 80; Pulse 77; Resp 17; Pulse Ox 100% on R/A; rv 22:15 BP 126 / 78; Pulse 69; Resp 17 S; Pulse Ox 100% on R/A; ha1 18:40 Body Mass Index 36.61 (99.79 kg, 165.1 cm) nj1 18:40 Pain Scale: Adult nj1 [employer] Coma Score: 22:55 Eye Response: spontaneous(4). Motor Response: obeys commands(6). Verbal Response: rv oriented(5). Total: 15. ED Course: 18:36 Patient arrived in ED. rg4 18:43 Triage completed. nj1 18:44 Arm band placed on right wrist. nj1 18:45 Eddie Alonzo PA is PHCP. cp 18:45 Timmy Barrera MD is Attending Physician. cp 19:00 Patient has correct armband on for positive identification. Bed in low position. Call rv light in reach. Side rails up X 1. Adult w/ patient. Client placed on continuous cardiac and pulse oximetry monitoring. NIBP monitoring applied. 19:25 Radiology exam delayed due to lab results not completed at this time. (BUN/Creatinine) eh4 test not completed at this time. IV insertion attempt and/or patient not having appropriate IV at this time. 19:30 No provider procedures requiring assistance completed. Inserted saline lock: 20 gauge rv in right antecubital area, using aseptic technique. Blood collected. 19:39 Carson Marin, RN is Primary Nurse. rv 19:39 CBC with Diff Sent. rv 19:39 CMP Sent. rv 19:39 Lipase Sent. rv 20:39 CT Abd/Pelvis - IV Contrast Only In Process Unspecified. EDMS 22:03 US Abdomen Limited: gallbladder In Process Unspecified. EDMS 22:07 XRAY Chest (1 view) In Process Unspecified. EDMS 22:35 Guillermo Dumont MD is Referral Physician. cp 22:56 IV discontinued, intact, bleeding controlled, No redness/swelling at site. Pressure rv dressing applied. Administered Medications: 19:39 Drug: NS 0.9% IV 1000 ml Route: IV; Rate: 1 bolus; Site: right antecubital; rv 21:30 Follow up: IV Status: Completed infusion; IV Intake: 1000ml rv 19:39 Drug: Ondansetron IVP 4 mg Route: IVP; Site: right antecubital; rv 21:29 Follow up: Response: No adverse reaction rv 19:39 Drug: morphine IVP or IV 4 mg Route: IVP; Infused Over: 4 mins; Site: right antecubital;rv 21:29 Follow up: Response: No adverse reaction; Pain is decreased rv 22:27 Drug: morphine IVP or IV 4 mg Route: IVP; Infused Over: 4 mins; Site: right antecubital;ha1 22:55 Follow up: Response: No adverse reaction rv Medication: 21:29 VIS not applicable for this client. rv Intake: 21:30 IV: 1000ml; Total: 1000ml. rv Outcome: 22:36 Discharge ordered by . cp 22:55 Discharged to home ambulatory. rv 22:55 Condition: improved 22:55 Discharge instructions given to patient, Instructed on discharge instructions, follow up and referral plans. medication usage, Demonstrated understanding of instructions, follow-up care, medications, Prescriptions given X 3. 22:56 Patient left the ED. rv Signatures: Dispatcher [employer] EDMS Eddie Alonzo PA PA cp Garcia, Rubi rg4 Carson Marin RN RN rv Lynn Ramsay RN RN ha1 [email or web address] Alba Olsen RN RN nj1
[2023-04-26 23:19] VITALS: O2SAT 100
[2023-04-26 23:21] VITALS: TEMP 99.2
[2023-04-26 23:23] VITALS: BP 126/78
== END 2023-04-26 22:56 | disposition home or self-care (01) ==
LOC: ER 18:34
DX: R10.11 Right upper quadrant pain (principal); R10.31 Right lower quadrant pain
CPT/HCPCS: 36415; 71045; 74177; 76705; 80053; 81001; 81025; 83690; 84703; 85025; J2405; J7030; Q9967

== ENCOUNTER 2023-06-20 21:48 | Emergency (ER) | payer SELFPAY ==
[2023-06-20] MEDS ORDERED: NA CHLORIDE 0.9% 1,000 ML ONE (22:43)
[2023-06-20] MEDS ORDERED: DIPHENHYDRAMINE 50 MG/ML VIAL ONE (22:43)
[2023-06-20] MEDS ORDERED: FAMOTIDINE 20 MG/2 ML VIAL IV ONE (22:43)
[2023-06-20] MEDS ORDERED: IPRATROPIUM BROM 0.5MG/2.5ML ONE (22:43)
[2023-06-20] MEDS ORDERED: ONDANSETRON 4 MG/2 ML VIAL ONE (22:43)
[2023-06-20] MEDS ORDERED: ALBUTEROL 2.5 MG/3 ML NEB SOL ONE (22:43)
[2023-06-20 22:44] LABS: Absolute Lymphocytes (CBC) 2.4 K/uL (0.7-4.9); Hematocrit 34.1 % (36.0-45.0); MCV 73.3 fL (80-100); MPV 7.8 fL (7.6-11.3); Platelets 373 thou/uL (152-406); RBC Red Blood Cell Count 4.64 M/uL (3.86-4.86)
[2023-06-20 22:52] LABS: Specific Gravity 1.015 (1.005-1.030)
[2023-06-20 22:54] LABS: Specific Gravity 1.015 (1.005-1.030); Urine Bacteria <20 /HPF (<20); Urine Bilirubin NEGATIVE (Negative); Urine Blood Negative (Negative); Urine Clarity Extremely Turbid (Clear); Urine Color Light-Yellow (Yellow); Urine Glucose NEGATIVE (Negative); Urine Mucus Slight /HPF (None Seen); Urine Protein NEGATIVE (Negative); Urine RBC None Seen /HPF (None Seen); Urine Urobilinogen Normal (Normal); Urine pH 6.5 (5.0-7.0)
[2023-06-20 23:00] LABS: Albumin 3.9 g/dL (3.4-5.0); Bilirubin Total 0.2 mg/dL (0.2-1.0); Potassium 3.6 mEq/L (3.5-5.1); Protein, Total 7.6 g/dL (6.4-8.2)
[2023-06-20] MEDS ORDERED: METHYLPREDNISOLONE 125 MG INJ ONE (23:38)
--- NOTE | 2023-06-20 23:49 | EDPHYS ---
Physician Documentation [facility] Name: Genesis Hu Age: 32 yrs Sex: Female : 1990 Arrival Date: 06/20/2023 Time: 21:48 Bed 13 Private MD: ED Physician Clark Pal HPI: 06/20 22:10 This 32 yrs old Female presents to ER via EMS with complaints of Insect Bite. cp 22:10 by a spider, at home. cp 22:10 Onset: The symptoms/episode began/occurred just prior to arrival. Associated signs and cp symptoms: Pertinent positives: pain at site, swelling at site, chest heaviness, Pertinent negatives: fever. Severity of symptoms: in the emergency department the symptoms are unchanged, despite EMS interventions. 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 - Social history:: Smoking status: Patient denies any tobacco usage or history of. ROS: 22:15 Constitutional: Negative for body aches, chills, fever, poor PO intake. cp 22:15 Eyes: Negative for injury, pain, redness, and discharge. cp 22:15 ENT: Negative for drainage from ear(s), ear pain, sore throat, difficulty swallowing, difficulty handling secretions. 22:15 Cardiovascular: Positive for chest heaviness, Negative for edema. 22:15 Respiratory: Positive for shortness of breath, at rest. 22:15 Abdomen/GI: Negative for abdominal pain, vomiting. 22:15 Neuro: Negative for altered mental status, headache, loss of consciousness, syncope, weakness. 22:15 All other systems are negative. Exam: 22:20 Constitutional: The patient appears in no acute distress, alert, awake, cp non-diaphoretic, non-toxic, well developed, well nourished. 22:20 Head/Face: Normocephalic, atraumatic. cp 22:20 Eyes: Periorbital structures: appear normal, Conjunctiva: normal, no exudate, no injection, Sclera: no appreciated abnormality, Lids and lashes: appear normal, bilaterally. 22:20 ENT: External ear(s): are unremarkable, Nose: is normal, Mouth: Lips: moist, Oral mucosa: pink and intact, moist, Posterior pharynx: is normal, airway is patent, no erythema, no exudate. 22:20 Neck: ROM/movement: is normal, is supple, without pain, no range of motions limitations. 22:20 Chest/axilla: Inspection: normal. 22:20 Cardiovascular: Rate: normal, Rhythm: regular, Edema: is not appreciated, JVD: is not appreciated. 22:20 Respiratory: the patient does not display signs of respiratory distress, Respirations: shallow respirations, that is mild, Breath sounds: are clear throughout, no decreased breath sounds, no stridor, no wheezing. 22:20 Abdomen/GI: Inspection: abdomen appears normal, Palpation: abdomen is soft and non-tender, in all quadrants. 22:20 Skin: cellulitis, is not appreciated, rash a mild rash is noted, on the distal right forearm. 22:20 Neuro: Motor: moves all fours, strength is normal, Sensation: is normal. Vital Signs: 22:00 BP 133 / 97; Pulse 94; Resp 17; Temp 98.4; Pulse Ox 98% ; Weight 99.79 kg; Height 5 ft. vc1 5 in. ; Pain 10/10; 22:44 BP 142 / 106; Pulse 84; Resp 16; Pulse Ox 100% ; vc1 23:12 BP 134 / 73; Pulse 79; Resp 20; Pulse Ox 100% ; sm8 22:00 Body Mass Index 36.61 (99.79 kg, 165.1 cm) vc1 22:00 Pain Scale: Adult vc1 MDM: 22:04 Patient medically screened. cp 23:00 Differential diagnosis: localized allergic reaction, anaphylaxis, anxiety. 23:47 Data reviewed: vital signs, nurses notes, lab test result(s). 23:47 I considered the following discharge prescriptions or medication management in the emergency department Medications were administered in the Emergency Department. See MAR. Counseling: I had a detailed discussion with the patient and/or guardian regarding the historical points, exam findings, and any diagnostic results supporting the discharge/admit diagnosis, lab results, to return to the emergency department if symptoms worsen or persist or if there are any questions or concerns that arise at home. Response to treatment: the patient's symptoms have markedly improved after treatment, and as a result, I will discharge patient. 06/20 22:01 Order name: CBC with Diff; Complete Time: 23:07 cp 06/20 23:46 Interpretation: Normal except: HGB 10.8; HCT 34.1; MCV 73.3; MCH 23.3; MCHC 31.7; RDW cp 17.1. 06/20 22:01 Order name: CMP; Complete Time: 23:07 cp 06/20 23:46 Interpretation: Normal except: CRE 1.04; GFR 74; AST 12; GLOB 3.7. cp 06/20 22:01 Order name: Urinalysis w/ reflexes; Complete Time: 23:07 cp 06/20 22:01 Order name: PREGU; Complete Time: 23:07 cp 06/20 22:01 Order name: IV Saline Lock; Complete Time: 22:44 cp 06/20 22:01 Order name: Labs collected and sent; Complete Time: 22:44 cp 06/20 23:46 Order name: Ice pack; Complete Time: 23:57 cp 06/20 23:46 Order name: Suman Wrap; Complete Time: 23:57 cp Administered Medications: 22:43 Drug: Famotidine IVP 20 mg Route: IVP; Site: left antecubital; vc1 22:43 Drug: diphenhydrAMINE IVP 50 mg Route: IVP; Site: left antecubital; vc1 22:43 Drug: DuoNeb Nebulize (2.5 mg - 0.5 mg) 3 ml Route: Nebulizer; vc1 22:44 Drug: NS 0.9% IV 1000 ml Route: IV; Rate: 1 bolus; Site: left antecubital; vc1 22:44 Drug: Ondansetron IVP 4 mg Route: IVP; Site: left antecubital; vc1 23:31 Drug: MethylPrednisoLONE IVP 125 mg Route: IVP; Site: left antecubital; vc1 Disposition Summary: 06/20/23 23:48 Discharge Ordered Location: Home cp Problem: new cp Symptoms: have improved cp Condition: Stable cp Diagnosis - Insect allergy status cp Followup: cp - With: Private Physician - When: 2 - 3 days - Reason: Worsening of condition Discharge Instructions: - Discharge Summary Sheet cp - Spider Bite cp Forms: - Medication Reconciliation Form cp - Thank You Letter cp - Antibiotic Education cp - Prescription Opioid Use cp - Patient Portal Instructions cp - Leadership Thank You Letter cp - Work release form vc1 Prescriptions: - albuterol sulfate 90 mcg/actuation Inhalation Aerosol Powder, Breath Activated - administer 1 inhalation by INHALATION route every 4-6 hours as needed for cp shortness of breath or wheezing; 1 unit; Refills: 0, Product Selection Permitted - Pepcid 20 mg Oral Tablet - take 1 tablet by ORAL route every 12 hours for 5 days; 10 tablet; Refills: 0, cp Product Selection Permitted - Zyrtec 10 mg Oral Tablet - take 1 tablet by ORAL route once daily As needed; 20 tablet; Refills: 0, cp Product Selection Permitted - Prednisone 20 mg Oral Tablet - take 2 tablets by ORAL route once daily for 5 days; 10 tablet; Refills: 0, cp Product Selection Permitted Signatures: Dispatcher [employer] EDEddie Wild PA PA cp Ekaterina Chin, RN RN vc1
--- NOTE | 2023-06-20 23:49 | ER ---
Nurse's Notes [facility] Name: Genesis Hu Age: 32 yrs Sex: Female : 1990 Arrival Date: 06/20/2023 Time: 21:48 Bed 13 Private MD: Diagnosis: Insect allergy status Presentation: 06/20 22:00 Chief complaint: EMS states: She walked through a spider web and knocked it down with vc1 her arms and felt a bite then burning and tingling to her right forearm. Now she can't move her fingers she has pain shooting up her arm. Coronavirus screen: Vaccine status: Patient reports being unvaccinated. Client denies travel out of the [place] in the last 14 days. At this time, the client does not indicate any symptoms associated with coronavirus-19. Ebola Screen: Patient negative for fever greater than or equal to 101.5 degrees Fahrenheit, and additional compatible Ebola Virus Disease symptoms Patient denies exposure to infectious person. Patient denies travel to an Ebola-affected area in the 21 days before illness onset. No symptoms or risks identified at this time. Initial Sepsis Screen: Does the patient meet any 2 criteria? No. Patient's initial sepsis screen is negative. Does the patient have a suspected source of infection? No. Patient's initial sepsis screen is negative. Risk Assessment: Do you want to hurt yourself or someone else? Patient reports no desire to harm self or others. Onset of symptoms was June 20, 2023. 22:00 Method Of Arrival: EMS: [facility] vc1 22:00 Acuity: KRISTIN 4 vc1 Triage Assessment: 22:03 Bite description: bite sustained to palmar aspect of right forearm by a spider, animal vc1 information: vaccination(s) is not applicable. General: Appears in no apparent distress. uncomfortable, Behavior is cooperative, anxious. Pain: Complains of pain in palmar aspect of right forearm Pain does not radiate. Pain currently is 10 out of 10 on a pain scale. Quality of pain is described as burning. EENT: No deficits noted. No signs and/or symptoms were reported regarding the EENT system. Neuro: Level of Consciousness is awake, alert, obeys commands, Oriented to person, place, time, situation, Appropriate for age. Cardiovascular: No deficits noted. Respiratory: Airway is patent Respiratory effort is even, unlabored, Respiratory pattern is regular, symmetrical. GI: No deficits noted. No signs and/or symptoms were reported involving the gastrointestinal system. : No deficits noted. No signs and/or symptoms were reported regarding the genitourinary system. Derm: Reports burning, pain that is 10 out of 10 on a pain scale. Derm: No deficits noted. No signs and/or symptoms reported regarding the dermatologic system. Musculoskeletal: No deficits noted. No signs and/or symptoms reported regarding the musculoskeletal system. 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 - Social history:: Smoking status: Patient denies any tobacco usage or history of. Screenin:06 [facility] ED Fall Risk Assessment (Adult) History of falling in the last 3 months, vc1 including since admission No falls in past 3 months (0 pts) Confusion or Disorientation No (0 pts) Intoxicated or Sedated No (0 pts) Impaired Gait No (0 pts) Mobility Assist Device Used No (0 pt) Altered Elimination No (0 pt) Score/Fall Risk Level 0 - 2 = Low Risk Oriented to surroundings, Maintained a safe environment, Educated pt \T\ family on fall prevention, incl call for assistance when getting out of bed. Abuse screen: Denies threats or abuse. Nutritional screening: No deficits noted. Tuberculosis screening: No symptoms or risk factors identified. Assessment: 22:07 Derm: Skin is intact, Skin is pink, warm \T\ dry. vc1 22:44 Reassessment: No changes from previously documented assessment. Patient and/or family vc1 updated on plan of care and expected duration. Pain level reassessed. Patient is alert, oriented x 3, equal unlabored respirations, skin warm/dry/pink. 06/21 00:03 Reassessment: No changes from previously documented assessment. Patient and/or family vc1 updated on plan of care and expected duration. Pain level reassessed. Patient states feeling better. Patient states symptoms have improved. Vital Signs: 06/20 22:00 BP 133 / 97; Pulse 94; Resp 17; Temp 98.4; Pulse Ox 98% ; Weight 99.79 kg; Height 5 ft. vc1 5 in. ; Pain 10/10; 22:44 BP 142 / 106; Pulse 84; Resp 16; Pulse Ox 100% ; vc1 23:12 BP 134 / 73; Pulse 79; Resp 20; Pulse Ox 100% ; sm8 22:00 Body Mass Index 36.61 (99.79 kg, 165.1 cm) vc1 22:00 Pain Scale: Adult vc1 ED Course: 21:58 Patient arrived in ED. rv1 21:59 Eddie Alonzo PA is PHCP. cp 21:59 Clark Pal MD is Attending Physician. cp 22:02 Triage completed. vc1 22:06 Arm band placed on left wrist. vc1 22:07 Patient has correct armband on for positive identification. Bed in low position. Pulse vc1 ox on. NIBP on. 22:25 PREGU Sent. sm8 22:25 Urinalysis w/ reflexes Sent. sm8 22:44 Ekaterina Chin, RN is Primary Nurse. vc1 22:44 Inserted saline lock: 22 gauge in left antecubital area, using aseptic technique. Blood vc1 collected. 06/21 00:02 No provider procedures requiring assistance completed. IV discontinued, intact, vc1 bleeding controlled, No redness/swelling at site. Pressure dressing applied. Administered Medications: 06/20 22:43 Drug: Famotidine IVP 20 mg Route: IVP; Site: left antecubital; vc1 22:43 Drug: diphenhydrAMINE IVP 50 mg Route: IVP; Site: left antecubital; vc1 22:43 Drug: DuoNeb Nebulize (2.5 mg - 0.5 mg) 3 ml Route: Nebulizer; vc1 22:44 Drug: NS 0.9% IV 1000 ml Route: IV; Rate: 1 bolus; Site: left antecubital; vc1 22:44 Drug: Ondansetron IVP 4 mg Route: IVP; Site: left antecubital; vc1 23:31 Drug: MethylPrednisoLONE IVP 125 mg Route: IVP; Site: left antecubital; vc1 Medication: 22:07 VIS not applicable for this client. vc1 Outcome: 23:48 Discharge ordered by MD. perkins 06/21 00:03 Discharged to home ambulatory. vc1 Condition: good Discharge instructions given to patient, Instructed on discharge instructions, follow up and referral plans. medication usage, Demonstrated understanding of instructions, follow-up care, medications, Prescriptions given X 3. 00:03 Patient left the ED. vc1 Signatures: Eddie Alonzo PA PA cp Calcote, Vanessa, RN RN vc1 Yoana Knight rv1 Abigail Neal 8
[2023-06-21 00:27] VITALS: TEMP 98.4
[2023-06-21 00:28] VITALS: O2SAT 100
[2023-06-21 00:29] VITALS: BP 134/73
== END 2023-06-21 00:03 | disposition home or self-care (01) ==
LOC: ER 21:48
DX: R21 Rash and other nonspecific skin eruption (principal); Z91.038 Other insect allergy status
CPT/HCPCS: 36415; 80053; 81001; 81025; 85025; 94640; 96374; 96375; 99285; J1200; J2405; J2930; J7030; J7613; J7644

== ENCOUNTER 2023-07-18 20:50 | Emergency (ER) | payer SELFPAY ==
[2023-07-18 21:41] LABS: Absolute Lymphocytes (CBC) 0.8 K/uL (0.7-4.9); Hematocrit 34.3 % (36.0-45.0); Lymphocytes % 21.4 % (15.3-44.8); MCV 72.9 fL (80-100); MPV 7.7 fL (7.6-11.3); Platelets 297 thou/uL (152-406)
[2023-07-18 21:44] LABS: Specific Gravity 1.007 (1.005-1.030)
[2023-07-18 21:47] LABS: Protime INR 1.05
[2023-07-18 21:48] LABS: Specific Gravity 1.007 (1.005-1.030); Urine Bacteria 20-50 /HPF (<20); Urine Bilirubin NEGATIVE (Negative); Urine Blood 3+ (OVER) (Negative); Urine Clarity Extremely Turbid (Clear); Urine Color Light-Brown (Yellow); Urine Glucose NEGATIVE (Negative); Urine Mucus Slight /HPF (None Seen); Urine Protein 1+ (Negative); Urine RBC >50 /HPF (None Seen); Urine Urobilinogen Normal (Normal); Urine pH 6.5 (5.0-7.0)
[2023-07-18] MEDS ORDERED: DIPHENHYDRAMINE 50 MG/ML VIAL ONE (21:49)
[2023-07-18] MEDS ORDERED: DICYCLOMINE HCL 10 MG CAP ONE (21:49)
[2023-07-18] MEDS ORDERED: METOCLOPRAMIDE 10 MG/2mL INJ ONE (21:49)
[2023-07-18] MEDS ORDERED: NA CHLORIDE 0.9% 1,000 ML ONE (21:50)
[2023-07-18] MEDS ORDERED: KETOROLAC 30 MG/ML INJ ONE (21:50)
[2023-07-18 22:04] LABS: Albumin 3.9 g/dL (3.4-5.0); Bilirubin Total 0.3 mg/dL (0.2-1.0); Potassium 3.4 mEq/L (3.5-5.1); Protein, Total 7.4 g/dL (6.4-8.2)
--- NOTE | 2023-07-18 22:14 | RAD REPORT ---
EXAM DESCRIPTION: US - Pelvis Complete - 07/18/2023 10:03 pm CLINICAL HISTORY: pelvic pain and excess bleeding Pelvic pain. COMPARISON: Transvaginal Study Probe dated 12/30/2022 TECHNIQUE: Sonographic grayscale and color flow images of the pelvis were obtained through transab dominal approach. FINDINGS: The uterus is normal in size, shape and echotexture. The uterus measures 9.3 cm length. The endometrial stripe measures 11 mm, normal in thickness, given the patient is currently menstruati ng. Both ovaries are normal in size, shape and echotexture. The right ovary measures 3.0 x 2.5 x 1.5 cm. The left ovary measures 3.4 x 3.1 x 1.9 cm. No ovarian or parovarian lesions. No adnexal masses. Normal Doppler blood flow was demonstrated to both ovaries. No significant pelvic ascites. IMPRESSION: Normal pelvic ultrasound.
--- NOTE | 2023-07-18 22:55 | ER ---
Nurse's Notes [facility] Name: Genesis Hu Age: 33 yrs Sex: Female : 1990 Arrival Date: 07/18/2023 Time: 20:50 Bed 19 Private MD: Diagnosis: Dysfunctional uterine bleeding, menorrhagia Presentation: 07/18 21:00 Chief complaint: Patient states: vaginal bleeding with large clots, generalized pf1 abdominal pain of 10 and back pain,onset 2 days. Patient stated this is her 2nd menstrual cycle in the past 4 weeks. 21:00 Coronavirus screen: Vaccine status: Patient reports being unvaccinated. Client denies 1 travel out of the [place] in the last 14 days. At this time, the client does not indicate any symptoms associated with coronavirus-19. Ebola Screen: Patient negative for fever greater than or equal to 101.5 degrees Fahrenheit, and additional compatible Ebola Virus Disease symptoms. Initial Sepsis Screen: Does the patient meet any 2 criteria? HR > 90 bpm. No. Patient's initial sepsis screen is negative. Does the patient have a suspected source of infection? No. Patient's initial sepsis screen is negative. Risk Assessment: Do you want to hurt yourself or someone else? Patient reports no desire to harm self or others. 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 Last tetanus immunization: > 10 years ago Flu vaccine is not up to date. - Social history:: Smoking status: Patient denies any tobacco usage or history of. Patient/guardian denies using alcohol, street drugs. - Family history:: not pertinent. Screenin:30 [facility] ED Fall Risk Assessment (Adult) History of falling in the last 3 months, me1 including since admission No falls in past 3 months (0 pts) Confusion or Disorientation No (0 pts) Intoxicated or Sedated No (0 pts) Impaired Gait No (0 pts) Mobility Assist Device Used No (0 pt) Altered Elimination No (0 pt) Score/Fall Risk Level 0 - 2 = Low Risk. Abuse screen: Denies threats or abuse. Nutritional screening: No deficits noted. Tuberculosis screening: No symptoms or risk factors identified. Assessment: 21:30 General: Appears uncomfortable, well groomed, well developed, well nourished, Behavior me1 is calm, cooperative, appropriate for age, Reports heavy vaginal bleeding with large clots, generalized abdominal pain that radiates to back 10/10 for the past 2 days. Pain: Complains of pain in abdomen Pain radiates to back Pain currently is 10 out of 10 on a pain scale. Quality of pain is described as crampy, Pain began 2-3 days ago. Is continuous. Neuro: Level of Consciousness is awake, alert, obeys commands, Oriented to person, place, time, situation, Appropriate for age. Cardiovascular: Capillary refill < 3 seconds Patient's skin is warm and dry. Respiratory: Airway is patent Respiratory effort is even, unlabored, Respiratory pattern is regular, symmetrical. : Reports vaginal bleeding that is bright red, with clots, heavy flow since 2 days ago. Vital Signs: 21:00 BP 143 / 96; Pulse 98; Resp 16; Temp 98.8; Pulse Ox 100% on R/A; Weight 99 kg; Height 5 pf1 ft. 6 in. ; Pain 10/10; 22:15 BP 114 / 83; Pulse 89; Resp 17; Pulse Ox 98% on R/A; me1 23:15 BP 122 / 79; Pulse 89; Resp 17; Pulse Ox 99% on R/A; me1 21:00 Body Mass Index 35.23 (99.00 kg, 167.64 cm) pf1 21:00 Pain Scale: Adult pf1 ED Course: 20:54 Patient arrived in ED. es 20:55 Arm band placed on Patient placed in waiting room. me1 21:01 Manjinder Platt MD is Attending Physician. sp4 21:14 Eddleman, Lenore, RN is Primary Nurse. me1 21:24 Triage completed. pf1 21:30 No provider procedures requiring assistance completed. me1 21:30 Patient has correct armband on for positive identification. Bed in low position. Call me1 light in reach. Side rails up X2. Provided Education on: POC. Verbalized understanding.. 21:34 Inserted saline lock: 22 gauge in left antecubital area, using aseptic technique. me1 21:34 PT-INR Sent. me1 21:34 CBC with Diff Sent. me1 21:34 CMP Sent. me1 21:34 Lipase Sent. me1 21:34 Test, Urine Sent. me1 21:34 Urinalysis w/ reflexes Sent. me1 22:04 US Pelvis Complete In Process Unspecified. EDMS 22:54 Shirley Mullen MD is Referral Physician. sp4 23:45 IV discontinued, intact, bleeding controlled, No redness/swelling at site. Pressure me1 dressing applied. Administered Medications: 22:19 Drug: Ketorolac IVP 30 mg Route: IVP; Site: left antecubital; me1 23:22 Follow up: Response: No adverse reaction; Pain is decreased me1 22:19 Drug: diphenhydrAMINE IVP 25 mg Route: IVP; Site: left antecubital; me1 23:22 Follow up: Response: No adverse reaction me1 22:19 Drug: metoCLOPramide IVP 10 mg Route: IVP; Site: left antecubital; me1 23:21 Follow up: Response: No adverse reaction; Nausea is decreased me1 22:19 Drug: Dicyclomine PO 20 mg Route: PO; me1 23:21 Follow up: Response: No adverse reaction; Pain is decreased me1 22:19 Drug: NS 0.9% IV 1000 ml Route: IV; Rate: 1 bolus; Site: left antecubital; me1 23:21 Follow up: IV Status: Completed infusion me1 Medication: 21:30 VIS not applicable for this client. me1 Outcome: 22:55 Discharge ordered by . sp4 23:45 Discharged to home ambulatory. me1 23:45 Condition: stable 23:45 Discharge instructions given to patient, Instructed on discharge instructions, follow up and referral plans. medication usage, Demonstrated understanding of instructions, follow-up care, medications, Prescriptions given X 1. 23:46 Patient left the ED. me1 Signatures: Dispatcher [employer] EDGretchen Gallegos Pamala RN RN pf1 Manjinder Platt MD MD sp4 Lenore Oconnor RN RN me1 Corrections: (The following items were deleted from the chart) 23:42 23:39 General: Appears uncomfortable, well groomed, well developed, well nourished, me1 Behavior is calm, cooperative, appropriate for age, Reports heavy vaginal bleeding with large clots, generalized abdominal pain that radiates to back 10/10 for the past 2 days. me1 23:42 23:39 Pain: Complains of pain in abdomen Pain radiates to back Pain currently is 10 out me1 of 10 on a pain scale. Quality of pain is described as crampy, Pain began 2-3 days ago. Is continuous, me1 23:42 23:39 Neuro: Level of Consciousness is awake, alert, obeys commands, Oriented to me1 person, place, time, situation, Appropriate for age me1 23:42 23:39 Cardiovascular: Capillary refill < 3 seconds Patient's skin is warm and dry. me1 me1 23:42 23:39 Respiratory: Airway is patent Respiratory effort is even, unlabored, Respiratory me1 pattern is regular, symmetrical, me1 23:42 23:39 : Reports vaginal bleeding that is bright red, with clots, heavy flow since 2 me1 days ago me1
--- NOTE | 2023-07-18 22:55 | EDPHYS ---
Physician Documentation [facility] Name: Genesis Hu Age: 33 yrs Sex: Female : 1990 Arrival Date: 07/18/2023 Time: 20:50 Bed 19 Private MD: ED Physician Manjinder Platt HPI: 07/18 21:01 This 33 yrs old Female presents to ER via Unassigned with complaints of sp4 Vaginal Bleeding, Abdominal Pain. 21:14 33-year-old female with history of polycystic ovarian syndrome presents. With moderate sp4 vaginal bleeding associated with pelvic pain starting 2 days ago. Patient states she has history of bilateral tubal ligation 9 years ago, history of heavy periods, history of GERD, she takes omeprazole daily. At this time patient is not on any oral contraceptives. Patient feels that she is anemic. . [facility]: 23:44 LMP 07/16/2023 me1 Historical: - Allergies: 21:24 Amoxicillin; pf1 21:24 Bleach (Sodium Hypochlorite); pf1 21:24 Latex, Natural Rubber; pf1 21:24 PENICILLINS; pf1 21:24 poison danilo; pf1 21:24 Bees; pf1 - PMHx: 21:24 hiatal hernia; PCOS; peptic ulcer; anxiety; ovarian cyst; pf1 - PSHx: 21:24 section; tubal ligation; laparoscopy; pf1 - Immunization history:: Adult Immunizations up to date, Client reports having NOT received the Covid vaccine. Last tetanus immunization: > 10 years ago Flu vaccine is not up to date. - Social history:: Smoking status: Patient denies any tobacco usage or history of. Patient/guardian denies using alcohol, street drugs. - Family history:: not pertinent. ROS: 21:14 Constitutional: Negative for fever, chills, and weight loss, : Positive vaginal sp4 bleeding, positive pelvic pain, positive pelvic cramps 21:14 All other systems are negative. Exam: 21:14 Constitutional: This is a well developed, well nourished patient who is awake, alert, sp4 and in no acute distress. Head/Face: Normocephalic, atraumatic. Eyes: Pupils equal round and reactive to light, extra-ocular motions intact. Lids and lashes normal. Conjunctiva and sclera are not injected. Cornea within normal limits. Periorbital areas with no swelling, redness, or edema. ENT: Nares patent. No nasal discharge, no septal abnormalities noted. Tympanic membranes are normal and external auditory canals are clear. Oropharynx with no redness, swelling, or masses, exudates, or evidence of obstruction, uvula midline. Mucous membranes moist. Neck: Trachea midline, no thyromegaly or masses palpated, and no cervical lymphadenopathy. Supple, full range of motion without nuchal rigidity, or vertebral point tenderness. Chest/axilla: Normal chest wall appearance and motion. Nontender with no deformity. No lesions are appreciated. Cardiovascular: Regular rate and rhythm with a normal S1 and S2. No gallops, murmurs, or rubs. Normal PMI, no JVD. No pulse deficits. Respiratory: Lungs have equal breath sounds bilaterally, clear to auscultation and percussion. No rales, rhonchi or wheezes noted. No increased work of breathing, no retractions or nasal flaring. Abdomen/GI: Soft, non-tender, with normal bowel sounds. No distension or tympany. No guarding or rebound. No evidence of tenderness throughout. Back: No spinal tenderness. No costovertebral tenderness. Skin: Warm, dry with normal turgor. Normal color with no rashes, no lesions, and no evidence of cellulitis. MS/ Extremity: Pulses equal, no cyanosis. Neurovascular intact. Full, normal range of motion. Neuro: Awake and alert, GCS 15, oriented to person, place, time, and situation. Cranial nerves II-XII grossly intact. Motor strength 5/5 in all extremities. Sensory grossly intact. Psych: Awake, alert, with orientation to person, place and time. Behavior, mood, and affect are within normal limits Vital Signs: 21:00 BP 143 / 96; Pulse 98; Resp 16; Temp 98.8; Pulse Ox 100% on R/A; Weight 99 kg; Height 5 pf1 ft. 6 in. ; Pain 10/10; 22:15 BP 114 / 83; Pulse 89; Resp 17; Pulse Ox 98% on R/A; me1 23:15 BP 122 / 79; Pulse 89; Resp 17; Pulse Ox 99% on R/A; me1 21:00 Body Mass Index 35.23 (99.00 kg, 167.64 cm) pf1 21:00 Pain Scale: Adult pf1 MDM: 21:02 Patient medically screened. sp4 22:43 Differential diagnosis: dysfunctional uterine bleeding, dysmenorrhea, menometrorrhagia, sp4 ovarian cyst. Data reviewed: vital signs, nurses notes, old medical records, lab test result(s), radiologic studies, ultrasound. Consideration of Admission/Observation Escalation of care including admission/observation considered. ED course: Ultrasound today is normal, hemoglobin is 11. 22:54 ED course: Patient will be prescribed oral contraceptives to try to minimize the extent sp4 of bleeding . We will refer patient to [facility] for maintenance of OCP. 07/18 21:02 Order name: CBC with Diff; Complete Time: 22:25 sp4 07/18 21:02 Order name: CMP sp4 07/18 21:02 Order name: Lipase [facility] 07/18 21:02 Order name: Test, Urine; Complete Time: 22:25 4 07/18 21:02 Order name: Urinalysis w/ reflexes; Complete Time: 22:25 4 07/18 21:02 Order name: PT-INR; Complete Time: 22:25 4 07/18 21:51 Order name: Urine Culture EDMN 07/18 21:13 Order name: US Pelvis Complete; Complete Time: 22:25 4 07/18 21:02 Order name: IV Saline Lock; Complete Time: 21:34 sp4 07/18 21:02 Order name: Labs collected and sent; Complete Time: 21:34 sp4 Administered Medications: 22:19 Drug: Ketorolac IVP 30 mg Route: IVP; Site: left antecubital; me1 23:22 Follow up: Response: No adverse reaction; Pain is decreased me1 22:19 Drug: diphenhydrAMINE IVP 25 mg Route: IVP; Site: left antecubital; me1 23:22 Follow up: Response: No adverse reaction me1 22:19 Drug: metoCLOPramide IVP 10 mg Route: IVP; Site: left antecubital; me1 23:21 Follow up: Response: No adverse reaction; Nausea is decreased me1 22:19 Drug: Dicyclomine PO 20 mg Route: PO; me1 23:21 Follow up: Response: No adverse reaction; Pain is decreased me1 22:19 Drug: NS 0.9% IV 1000 ml Route: IV; Rate: 1 bolus; Site: left antecubital; me1 23:21 Follow up: IV Status: Completed infusion me1 Disposition Summary: 07/18/23 22:55 Discharge Ordered Location: Home sp4 Problem: new sp4 Symptoms: have improved sp4 Condition: Stable sp4 Diagnosis - Dysfunctional uterine bleeding, menorrhagia sp4 Followup: sp4 - With: Shirley Mullen MD - When: 7 - 10 days - Reason: Recheck today's complaints Discharge Instructions: - Discharge Summary Sheet sp4 - Menorrhagia, [id number] sp4 Forms: - Patient Portal Instructions sp4 Prescriptions: - Sprintec (28) 0.25-35 mg-mcg Oral tablet - take 1 tablet by ORAL route daily; 1 Pack; Refills: 0, Product Selection sp4 Permitted Signatures: Dispatcher [employer] Libia Boles RN RN pf1 Manjinder Platt MD MD sp4 Lenore Oconnor RN RN me1
[2023-07-19 01:38] VITALS: TEMP 98.8
[2023-07-19 01:41] VITALS: BP 122/79; O2SAT 99
== END 2023-07-18 23:46 | disposition home or self-care (01) ==
LOC: ER 20:50
DX: N92.0 Excessive and frequent menstruation with regular cycle (principal)
CPT/HCPCS: 36415; 76856; 80053; 81001; 81025; 83690; 85025; 85610; 87086; 87088; 96361; 96374; 96375; 99284; J1200; J2765; J7030

== ENCOUNTER 2023-10-11 12:19 | Emergency (ER) | payer SELFPAY ==
[2023-10-11 14:06] LABS: SARS-CoV-2 Antigen Rapid Res Negative (Negative)
--- NOTE | 2023-10-11 14:18 | EDPHYS ---
Physician Documentation [facility] Name: Genesis Hu Age: 33 yrs Sex: Female : 1990 Arrival Date: 10/11/2023 Time: 12:19 Bed 11 Private MD: ED Physician Roland Us HPI: 10/11 12:36 This 33 yrs old Female presents to ER via Ambulatory with complaints of Sore Throat. sb4 12:36 The patient presents with sore throat. Onset: The symptoms/episode began/occurred 3 sb4 day(s) ago. Modifying factors: Denies contact with similarly ill indivduals. Associated signs and symptoms: Pertinent positives: cough, flu-like symptoms, Sore throat. The patient has experienced similar episodes in the past, multiple times. The patient has not recently seen a physician. Historical: - Allergies: 12:32 Amoxicillin; cm10 12:32 Bees; cm10 12:32 Bleach (Sodium Hypochlorite); cm10 12:32 Latex; cm10 12:32 PENICILLINS; cm10 12:32 POISON VIMAL; cm10 - PMHx: 12:32 Anxiety; hiatal hernia; Ovarian cyst; PCOS; peptic ulcer; cm10 - PSHx: 12:32 section; laparoscopy; tubal ligation; cm10 - Immunization history:: Adult Immunizations unknown. - Social history:: Smoking status: Patient denies any tobacco usage or history of. ROS: 12:36 Constitutional: Negative for fever, chills, and weight loss, sb4 12:36 ENT: Positive for sore throat, 12:36 Respiratory: Positive for cough, 12:36 All other systems are negative, Exam: 12:36 Constitutional: This is a well developed, well nourished patient who is awake, alert, sb4 and in no acute distress. Head/Face: Normocephalic, atraumatic. Eyes: Extra-ocular motions intact. Periorbital areas with no swelling, redness, or edema. Cardiovascular: Regular rate and rhythm with a normal S1 and S2. Respiratory: Lungs have equal breath sounds bilaterally, clear to auscultation and percussion. No rales, rhonchi or wheezes noted. No increased work of breathing, no retractions or nasal flaring. Abdomen/GI: Soft, non-tender, no distension. Skin: Warm, dry with normal turgor. Normal color with no rashes, no lesions, and no evidence of cellulitis. MS/ Extremity: Pulses equal, no cyanosis. Neurovascular intact. Full, normal range of motion. Neuro: Awake and alert, GCS 15, oriented to person, place, time, and situation. Motor strength 5/5 in all extremities. Sensory grossly intact. 12:36 ENT: Posterior pharynx: Tonsils: with erythema, tonsil stone/exudate present left upper tonsil, Uvula: normal, midline, swelling, that is mild, erythema, that is mild, Vital Signs: 12:31 BP 139 / 83; Pulse 72; Resp 16; Temp 97.3; Pulse Ox 100% ; Weight 96.62 kg; Height 5 cm10 ft. 4 in. ; Pain 7/10; 13:30 BP 134 / 85; Pulse 75; Resp 18; Pulse Ox 100% on R/A; me1 14:30 BP 126 / 75; Pulse 69; Resp 17; Pulse Ox 100% on R/A; me1 12:31 Body Mass Index 36.56 (96.62 kg, 162.56 cm) cm10 12:31 Pain Scale: Adult cm10 MDM: 12:36 Patient medically screened. sb4 12:38 Differential diagnosis: group A strep tonsillitis, influenza, pharyngitis, tonsillitis, sb4 upper respiratory infection, viral syndrome covid, flu, pneumonia. 13:54 Independent interpretation of the following test(s) in the Emergency Department X-Ray: sb4 My interpretation is my interpretation of the chest xray images is no acute consolidation/infiltrate. 14:17 Data reviewed: vital signs, nurses notes, lab test result(s), radiologic studies, and sb4 as a result, I will discharge patient. Counseling: I had a detailed discussion with the patient and/or guardian regarding the historical points, exam findings, and any diagnostic results supporting the discharge/admit diagnosis, lab results, radiology results, the need for outpatient follow up, an ENT specialist. 10/11 12:36 Order name: SARS RAPID; Complete Time: 14:07 sb4 10/11 12:36 Order name: Flu; Complete Time: 14:15 sb4 10/11 12:36 Order name: Strep; Complete Time: 14:15 sb4 10/11 14:16 Order name: Throat Culture EDMS 10/11 12:36 Order name: Chest Pa And Lat (2 Views) XRAY; Complete Time: 14:31 sb4 Administered Medications: No medications were administered Disposition: 13:42 I was immediately available on-site in the Emergency Department for consultation in the ms3 care of the patient. Disposition Summary: 10/11/23 14:17 Discharge Ordered Notes: Location: Home sb4 Problem: new sb4 Symptoms: are unchanged sb4 Condition: Stable sb4 Diagnosis - Acute recurrent tonsillitis, unspecified sb4 Followup: sb4 - With: Nhung Almaguer MD - When: As needed - Reason: Recheck today's complaints, Re-evaluation by your physician Followup: sb4 - With: Elyssa Thornton MD - When: As needed - Reason: Recheck today's complaints, Re-evaluation by your physician Discharge Instructions: - Discharge Summary Sheet sb4 - Tonsillitis, [id number] sb4 Forms: - Work release form sb4 - Medication Reconciliation Form sb4 - Thank You Letter sb4 - Antibiotic Education sb4 - Prescription Opioid Use sb4 - Patient Portal Instructions sb4 - Leadership Thank You Letter sb4 Prescriptions: - Doxycycline Hyclate 100 mg Oral Tablet - take 1 tablet ORAL route every 12 hours; 20 tablet; Refills: 0, Product sb4 Selection Permitted Signatures: Dispatcher [employer] EDMI Roland Us DO DO ms3 Leslie Brown PA-C PA-C sb4 Hailey Orantes, RN RN cm10
--- NOTE | 2023-10-11 14:18 | ER ---
Nurse's Notes [facility] Name: Genesis Hu Age: 33 yrs Sex: Female : 1990 Arrival Date: 10/11/2023 Time: 12:19 Bed 11 Private MD: Diagnosis: Acute recurrent tonsillitis, unspecified Presentation: 10/11 12:31 Chief complaint: Patient states: Sore throat onset 3 days ago. Pt states that today she cm10 developed a cough. Pt reports that her daughter recently had strep. Coronavirus screen: Vaccine status: Patient reports being unvaccinated. Client denies travel out of the [place] in the last 14 days. Ebola Screen: Patient denies travel to an Ebola-affected area in the 21 days before illness onset. No symptoms or risks identified at this time. Initial Sepsis Screen: Does the patient meet any 2 criteria? No. Patient's initial sepsis screen is negative. Does the patient have a suspected source of infection? No. Patient's initial sepsis screen is negative. Risk Assessment: Do you want to hurt yourself or someone else? Patient reports no desire to harm self or others. Onset of symptoms was October 11, 2023. 12:31 Method Of Arrival: Ambulatory cm10 12:31 Acuity: KRISTIN 4 cm10 Historical: - Allergies: 12:32 Amoxicillin; cm10 12:32 Bees; cm10 12:32 Bleach (Sodium Hypochlorite); cm10 12:32 Latex; cm10 12:32 PENICILLINS; cm10 12:32 POISON VIMAL; cm10 - PMHx: 12:32 Anxiety; hiatal hernia; Ovarian cyst; PCOS; peptic ulcer; cm10 - PSHx: 12:32 section; laparoscopy; tubal ligation; cm10 - Immunization history:: Adult Immunizations unknown. - Social history:: Smoking status: Patient denies any tobacco usage or history of. Screenin:19 [facility] ED Fall Risk Assessment (Adult) History of falling in the last 3 months, me1 including since admission No falls in past 3 months (0 pts) Confusion or Disorientation No (0 pts) Intoxicated or Sedated No (0 pts) Impaired Gait No (0 pts) Mobility Assist Device Used No (0 pt) Altered Elimination No (0 pt) Score/Fall Risk Level 0 - 2 = Low Risk Maintained a safe environment, Provided non-skid footwear, Hourly rounding (assess needs \T\ fall precautionary measures) done. Abuse screen: Denies threats or abuse. Nutritional screening: No deficits noted. Tuberculosis screening: No symptoms or risk factors identified. Assessment: 14:19 General: Appears uncomfortable, well groomed, well developed, well nourished, Behavior me1 is calm, cooperative, appropriate for age, Reports Sore throat onset 3 days ago. Pt states that today she developed a cough. Pt reports that her daughter recently had strep. Pain: Complains of pain in throat Pain does not radiate. Pain currently is 4 out of 10 on a pain scale. Quality of pain is described as tender, Pain began 2-3 days ago. Is continuous. Neuro: Level of Consciousness is awake, alert, obeys commands, Oriented to person, place, time, situation, Appropriate for age. Cardiovascular: Capillary refill < 3 seconds Patient's skin is warm and dry. Respiratory: Reports cough that is non-productive, Airway is patent Respiratory effort is even, unlabored, Respiratory pattern is regular, symmetrical, Breath sounds are clear bilaterally. EENT: Throat is reddened. Vital Signs: 12:31 BP 139 / 83; Pulse 72; Resp 16; Temp 97.3; Pulse Ox 100% ; Weight 96.62 kg; Height 5 cm10 ft. 4 in. ; Pain 7/10; 13:30 BP 134 / 85; Pulse 75; Resp 18; Pulse Ox 100% on R/A; me1 14:30 BP 126 / 75; Pulse 69; Resp 17; Pulse Ox 100% on R/A; me1 12:31 Body Mass Index 36.56 (96.62 kg, 162.56 cm) cm10 12:31 Pain Scale: Adult cm10 ED Course: 12:22 Patient arrived in ED. mr 12:22 Leslie Brown PA-C is PHCP. sb4 12:22 Roland Us DO is Attending Physician. sb4 12:32 Triage completed. cm10 12:33 Arm band placed on Patient placed in waiting room. cm10 13:18 Lenore Oconnor, RN is Primary Nurse. me1 13:29 Strep Sent. me1 13:30 Flu Sent. me1 13:30 SARS RAPID Sent. me1 13:54 Chest Pa And Lat (2 Views) XRAY In Process Unspecified. EDMS 14:17 Nhung Almaguer MD is Referral Physician. sb4 14:17 Elyssa Thornton MD is Referral Physician. sb4 14:19 Patient has correct armband on for positive identification. Bed in low position. Call me1 light in reach. Side rails up X 1. Provided Education on: POC. Verbalized understanding. . 14:19 No provider procedures requiring assistance completed. Patient did not have IV access me1 during this emergency room visit. Administered Medications: No medications were administered Medication: 14:19 VIS not applicable for this client. me1 Outcome: 14:17 Discharge ordered by MD. sb4 14:31 Discharged to home ambulatory, with significant other, me1 14:31 Condition: stable 14:31 Discharge instructions given to patient, significant other, Instructed on discharge instructions, follow up and referral plans. medication usage, Demonstrated understanding of instructions, follow-up care, medications, Prescriptions given X 1, 14:31 Patient left the ED. me1 Signatures: Dispatcher [employer] EDOR RojasMaria Isabel de, Reg Reg Leslie Gaitan, PA-C PA-C sb4 Hailey Orantes, RN RN cm10 Lenore Oconnor, RN RN me1 Corrections: (The following items were deleted from the chart) 14:19 12:31 Chief complaint: Patient states: Sore throat onset 3 days ago. Pt states that me1 today she developed a cough. Pt reports that her daughter recently had strep. cm10
--- NOTE | 2023-10-11 14:30 | RAD REPORT ---
EXAM DESCRIPTION: Kwadwo Castro And Jackie (2 Views)10/11/2023 1:53 pm CLINICAL HISTORY: Cough COMPARISON: April 2023 FINDINGS: The lungs appear clear of acute infiltrate. The heart is normal size IMPRESSION: No acute abnormalities displayed
[2023-10-11 14:37] VITALS: TEMP 97.3; O2SAT 100
[2023-10-11 14:39] VITALS: BP 126/75
== END 2023-10-11 14:31 | disposition home or self-care (01) ==
LOC: ER 12:19
DX: J03.91 Acute recurrent tonsillitis, unspecified (principal); Z11.52 Encounter for screening for COVID-19
CPT/HCPCS: 36415; 71046; 87070; 87081; 87804; 87811; 99283

== ENCOUNTER → 2023-10-31 | Emergency (ER) | payer SELFPAY ==
--- OUTSIDE RECORDS SUMMARY | 2023-10-31 16:22 | XMS REPORT | Continuity of Care Document ---
Author Name Unknown Address [address] [place] [address] [facility] thconnect Address 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 Name Role Phone PCP, PATIENT DOES NOT HAVE A Primary Care Physic anson Unavailable WILLIAM ASCENCIO Attending Clinician Unavailable William Garcia Attending Clinician [phone] Kyra MEDEIROS Attending Clinician Unavailable Kyra Sweeney Attending Clinician [phone] LIBIA BO Attending Clinician Unavailable Libia Bo NP Attending Clinician [phone] JESSICA BALLARD Attending Clinician Unavailable Jessica Ballard MD Attending Clinician [phone] AARONJAYY DRUMMOND Attending Clinician Unavailable Jayy Brandt Attending Clinician [phone] SRIDHAR MATA Attending Clinician Unavailable Sridhar Mata DO Attending Clinician [phone] LATHA WINSTON Attending Clinician UnavailLatha Lopez DO Attending Clinician [phone] Jack Brower MD Attending Clinician [phone] JACK BROWER Attending Clinician Unavailable Anjali Merida PA-C Attending Clinician [phone] ANJALI MERIDA Attending Clinician Unavailable Doctor Unassigned, [place] Attending Clinician U caitlin Valle MD, Jose David Suarez Attending Clinician [phone] Kyra MEDEIROS Admitting Clinician Unavailable JESSICA BALLARD Admitting Clinician Unavailable Payers Payer Name Policy Type Policy Number Effective Date Expirati on Date Source [employer]WORK [id number] 2022 00:00:00 MEDICAID PENDING PENDING 2021 00:00:00 Problems Condition Name Condition Details Condition Category Status Onset Date Resolution Date Last Treatment Date Treating Clinician Comments Source Abdominal pain Abdominal pain Disease Active 07-28 00:00: 00 Overview: Formattin g of this note might be different from the original. 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 1 hr- 47 [facility] Immune to varicella Immune to varicella Disease Active 07-05 00:00: 00 [facility] High-risk High-risk Disease Active 06-30 00:00: 00 Overview: Formattin g of this note might be different from the original. Medical records received. [facility]. DOS- 0. CC: 30 weeks w/ twins, vomiting black liquid. No evidence of hepatitis , pancreati tis, or liver dysfuncti on. Physiolog ic anemia. No UTI or ketonuria . 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 Medical records- 0- IUP at 33 weeks. Dichorion ic, diamnioti c twin gestation . presentat ion Vertex and transvers e. PTL. Primary low transvers e via Pfannenst iel incision. Right dermoid cystectom y. [facility] Bipolar disorder Bipolar disorder Disease Active 06-30 00:00: 00 [facility] Family history of congenital anomalies Family history of congenital anomalies Disease Active 06-30 00:00: 00 Overview: Formattin g of this note might be different from the original. Detailed US and Genetics. Mother born with spinal bifida ocarta and hole in the heart and born with heart murmur [facility] History of labor History of labor Disease Active 06-30 00:00: 00 Overview: Formattin g of this note might be different from the original. Delivered at 28 week via for PTL -Twins. Send to [facility] at 16 weeks [facility] Pain pelvic Pain pelvic Disease Active 06-30 00:00: 00 [facility] Rubella immune Rubella immune Disease Active 06-30 00:00: 00 [facility] Allergies, Adverse Reactions, Alerts Allergy Name Allergy Type Status Severity Reaction(s) Onset Date Inactive Date Treating Clinician Comments Source LATEX DRUG INGREDI Active ITCHING 05-09 00:00: 00 [facility] NUDIT BLEACH DRUG Active Swelling 05-09 00:00: 00 [facility] Latex Propensi ty to adverse reaction s Active Itching 05-09 00:00: 00 [facility] Nudit Bleach Propensi ty to adverse reaction s Active Swelling 05-09 00:00: 00 [facility] AMOXICIL DAVY DRUG INGREDI Active Anaphylaxis 01-09 00:00: 00 [facility] Amoxicil davy Propensi ty to adverse reaction s Active Anaphylaxis 01-09 00:00: 00 [facility] PENICILL IN DRUG INGREDI Active Anaphylaxis 2015-11 00:00: 00 [facility] Penicill in Propensi ty to adverse reaction s Active Anaphylaxis 2015-11 00:00: 00 [facility] BEE POLLEN DRUG INGREDI Active Unknown-Cmnt 12-01 00:00: 00 [facility] Bee Pollen Propensi ty to adverse reaction s Active Unknown - See comments 12-01 00:00: 00 [facility] Social History Social Habit Start Date Stop Date Quantity Comments [facility] 2023-07-28 00:00:00 2023-07-28 00:00:00 [facility] Alcohol intake 2023-07-28 00:00:00 2023-07-28 00:00:00 Current non-drinker of alcohol (finding) [facility] Exposure to SARS-CoV-2 (event) 2023-02-17 00:00:00 2023-02-27 09:35:00 Not sure [facility] Tobacco use and exposure 2013-06-30 00:00:00 2013-06-30 00:00:00 Smokeless tobacco non-user [facility] Sex Assigned At 1990 00:00:00 1990 00:00:00 [facility] Smoking Status Start Date Stop Date Source Never smoked tobacco [facility] Medications Ordered Medication Name Filled Medication Name Start Date Stop Date Current Medication? Ordering Clinician Indication Dosage Frequency Signature (SIG) Comments Components Source benzonatate 200 mg capsule 07-28 00:00: 00 Yes [id number] 200mg Take 1 capsule by mouth 3 (three) times daily as needed for Cough. [facility] fluticasone propionate 50 mcg/actuati on nasal spray 07-28 00:00: 00 Yes [id number] 2{spray } Use 2 Sprays in each nostril in the morning. [facility] iopamidol (ISOVUE 370-500 mL) injection 75 mL 04-30 01:15: 00 04-30 01:15 :00 No [id number] 75mL 75 mL, Intravenou s, ONCE, 1 dose, On Wed04/29/23 at 2015, Routine [facility] maalox:diph enhydrAMINE :lidocaine 2 % viscous 1:1:1 (FIRST-MOUT [facility] BLM) oral suspension 15 mL 04-30 00:45: 00 04-30 00:38 :00 No 15mL 15 mL, Oral (Swish & Swallow), ONCE, 1 dose, On Wed04/29/23 at 1945, Routine [facility] famotidine (PEPCID (PF)) injection 20 mg 04-29 23:45: 00 04-30 00:39 :00 No 20mg 20 mg, Slow IV Push, ONCE, 1 dose, On Wed04/29/23 at 1845, MARIELA [facility] levETIRAcet am (KEPPRA) in NACL (ISO-OS) 1,000 mg/100 mL RTU 01-26 00:30: 00 01-25 23:56 :00 No 1000mg 1,000 mg, IV Piggyback, ONCE, 1 dose, On Wed01/25/23 at 1930, Administer over 15 Minutes, 100 mL [facility] acetaminoph en (TYLENOL) tablet 975 mg 01-26 00:30: 00 01-25 23:42 :00 No 975mg 975 mg, Oral, ONCE, 1 dose, On Wed01/25/23 at 1930, MARIELA [facility] levETIRAcet am (KEPPRA) 500 mg tablet 01-25 00:00: 00 Yes [id number] 500mg Take 1 tablet by mouth in the morning and 1 tablet in the evening. [facility] levETIRAcet am (KEPPRA) 500 mg tablet 01-25 00:00: 00 Yes [id number] 500mg Take 1 tablet by mouth in the morning and 1 tablet in the evening. [facility] levETIRAcet am (KEPPRA) 500 mg tablet 01-25 00:00: 00 Yes [id number] 500mg Take 1 tablet by mouth in the morning and 1 tablet in the evening. [facility] levETIRAcet am (KEPPRA) 500 mg tablet 01-25 00:00: 00 Yes [id number] 500mg Take 1 tablet by mouth in the morning and 1 tablet in the evening. [facility] dicyclomine (BENTYL) injection 20 mg 05-10 04:15: 00 05-10 03:38 :00 No 20mg 20 mg, Intramuscu lar, ONCE, 1 dose, On 05/09/22 at 2315, Routine [facility] dicyclomine 20 mg tablet 05-10 00:00: 00 Yes [id number] 20mg Take 1 tablet by mouth 4 (four) times daily as needed for Abdominal pain. [facility] dicyclomine 20 mg tablet 05-10 00:00: 00 Yes [id number] 20mg Take 1 tablet by mouth 4 (four) times daily as needed for Abdominal pain. [facility] dicyclomine 20 mg tablet 05-10 00:00: 00 Yes [id number] 20mg Take 1 tablet by mouth 4 (four) times daily as needed for Abdominal pain. [facility] dicyclomine 20 mg tablet 05-10 00:00: 00 Yes [id number] 20mg Take 1 tablet by mouth 4 (four) times daily as needed for Abdominal pain. [facility] dicyclomine 20 mg tablet 05-10 00:00: 00 Yes [id number] 20mg Take 1 tablet by mouth 4 (four) times daily as needed for Abdominal pain. [facility] ferrous sulfate/vit C/folic ac (FERROUS SULFATE-C-F OLIC ACID ORAL) 05-09 23:56: 54 05-09 00:00 :00 No 1{tbl} Take 1 tablet by mouth daily. [facility] dicyclomine 20 mg tablet 05-09 00:00: 00 05-10 00:00 :00 No [id number] 20mg Take 1 tablet by mouth 4 (four) times daily as needed for Abdominal pain. [facility] clarithromy dominique 500 mg tablet 12-24 00:00: 00 Yes [id number] 500mg Take 1 tablet by mouth every 12 (twelve) hours. [facility] pantoprazol e 40 mg EC tablet 12-24 00:00: 00 Yes [id number] 40mg Take 1 tablet by mouth daily. [facility] pantoprazol e 40 mg EC tablet 12-24 00:00: 00 Yes [id number] 40mg Take 1 tablet by mouth daily. [facility] pantoprazol e 40 mg EC tablet 12-24 00:00: 00 Yes [id number] 40mg Take 1 tablet by mouth daily. [facility] pantoprazol e 40 mg EC tablet 12-24 00:00: 00 Yes [id number] 40mg Take 1 tablet by mouth daily. [facility] pantoprazol e 40 mg EC tablet 12-24 00:00: 00 Yes [id number] 40mg Take 1 tablet by mouth daily. [facility] pantoprazol e 40 mg EC tablet 12-24 00:00: 00 Yes [id number] 40mg Take 1 tablet by mouth daily. [facility] clarithromy dominique 500 mg tablet 12-24 00:00: 00 05-09 00:00 :00 No [id number] 500mg Take 1 tablet by mouth every 12 (twelve) hours. [facility] sucralfate 1 gram tablet 12-24 00:00: 00 01-24 04:59 :00 No [id number] 1g Take 1 tablet by mouth before meals and at bedtime for 30 days. [facility] metroNIDAZO LE 500 mg tablet 12-24 00:00: 00 01-08 05:59 :00 No [id number] 500mg Take 1 tablet by mouth every 8 (eight) hours for 14 days. [facility] sucralfate 1 gram tablet 12-24 00:00: 00 12-24 00:00 :00 No [id number] 1g Take 1 tablet by mouth before meals and at bedtime. [facility] maalox:diph enhydrAMINE :lidocaine 2 % viscous 1:1:1 ([facility] oral suspension 15 mL 12-08 21:30: 00 12-08 20:30 :00 No 15mL 15 mL, Oral, ONCE, 1 dose, On Wed12/08/21 at 1530, Routine [facility] sucralfate 1 gram tablet 12-08 00:00: 00 Yes [id number] 1g Take 1 tablet by mouth before meals and at bedtime. [facility] dicyclomine (BENTYL) 10 mg capsule 12-08 00:00: 00 Yes [id number] 10mg Take 1 capsule by mouth every 8 (eight) hours as needed for Abdominal pain. [facility] ondansetron 4 mg disintegrat ing tablet 12-08 00:00: 00 Yes [id number] 4mg Take 1 tablet by mouth every 8 (eight) hours as needed for Nausea and Vomiting (N/V). [facility] dicyclomine (BENTYL) 10 mg capsule 12-08 00:00: 00 Yes [id number] 10mg Take 1 capsule by mouth every 8 (eight) hours as needed for Abdominal pain. [facility] ondansetron 4 mg disintegrat ing tablet 12-08 00:00: 00 Yes [id number] 4mg Take 1 tablet by mouth every 8 (eight) hours as needed for Nausea and Vomiting (N/V). [facility] ondansetron 4 mg disintegrat ing tablet 12-08 00:00: 00 Yes [id number] 4mg Take 1 tablet by mouth every 8 (eight) hours as needed for Nausea and Vomiting (N/V). [facility] ondansetron 4 mg disintegrat ing tablet 12-08 00:00: 00 Yes [id number] 4mg Take 1 tablet by mouth every 8 (eight) hours as needed for Nausea and Vomiting (N/V). [facility] ondansetron 4 mg disintegrat ing tablet 12-08 00:00: 00 Yes [id number] 4mg Take 1 tablet by mouth every 8 (eight) hours as needed for Nausea and Vomiting (N/V). [facility] ondansetron 4 mg disintegrat ing tablet 12-08 00:00: 00 Yes [id number] 4mg Take 1 tablet by mouth every 8 (eight) hours as needed for Nausea and Vomiting (N/V). [facility] ondansetron 4 mg disintegrat ing tablet 12-08 00:00: 00 Yes [id number] 4mg Take 1 tablet by mouth every 8 (eight) hours as needed for Nausea and Vomiting (N/V). [facility] dicyclomine (BENTYL) 10 mg capsule 12-08 00:00: 00 05-09 00:00 :00 No [id number] 10mg Take 1 capsule by mouth every 8 (eight) hours as needed for Abdominal pain. [facility] omeprazole 20 mg capsule 12-08 00:00: 00 01-08 05:59 :00 No [id number] 20mg Take 1 capsule by mouth daily for 30 days. [facility] omeprazole 20 mg capsule 12-08 00:00: 00 01-08 05:59 :00 No [id number] 20mg Take 1 capsule by mouth daily for 30 days. [facility] sucralfate 1 gram tablet 12-08 00:00: 00 12-24 00:00 :00 No [id number] 1g Take 1 tablet by mouth before meals and at bedtime. [facility] bismuth-met ronidazole- tetracyclin e 140-125-125 mg per capsule 12-08 00:00: 00 12-23 05:59 :00 No [id number] 3{capsu le} Take 3 capsules by mouth before meals and at bedtime for 14 days. [facility] pantoprazol e (PROTONIX) 40 mg EC tablet 2020-11 00:00: 00 Yes [id number] 40mg Take 1 tablet by mouth daily. [facility] pantoprazol e (PROTONIX) 40 mg EC tablet 2020-11 00:00: 00 Yes [id number] 40mg Take 1 tablet by mouth daily. [facility] pantoprazol e (PROTONIX) 40 mg EC tablet 2020-11 00:00: 00 12-24 00:00 :00 No [id number] 40mg Take 1 tablet by mouth daily. [facility] sucralfate 1 gram tablet 2020-11 00:00: 00 11-13 05:59 :00 No [id number] 1g Take 1 tablet by mouth before meals and at bedtime for 30 days. [facility] dicyclomine (BENTYL) capsule 10 mg 2020-11 18:00: 00 Yes 10mg 10 mg, Oral, QID, First dose on Wed09/23/21 at 1200, Until Discontinu ed, Routine [facility] sucralfate (CARAFATE) tablet 1 g 2020-11 17:30: 00 Yes 1g 1 g, Oral, AC+HS, First dose on Wed09/23/21 at 1130, Until Discontinu ed, Routine [facility] pantoprazol e (PROTONIX) injection 40 mg 2020-11 15:45: 00 09-23 15:00 :00 No 40mg 40 mg, Slow IV Push, ONCE, 1 dose, On Wed09/23/21 at 0945 [facility] dicyclomine (BENTYL) 10 mg capsule 2020-11 00:00: 00 Yes [id number] 10mg Take 1 capsule by mouth every 8 (eight) hours as needed for Abdominal pain. [facility] ondansetron 4 mg disintegrat ing tablet 2020-11 00:00: 00 Yes [id number] 4mg Take 1 tablet by mouth every 8 (eight) hours as needed for Nausea and Vomiting (N/V). [facility] sucralfate 1 gram tablet 2020-11 00:00: 00 Yes [id number] 1g Take 1 tablet by mouth before meals and at bedtime. [facility] dicyclomine (BENTYL) 10 mg capsule 2020-11 00:00: 00 Yes [id number] 10mg Take 1 capsule by mouth every 8 (eight) hours as needed for Abdominal pain. [facility] ondansetron 4 mg disintegrat ing tablet 2020-11 00:00: 00 Yes [id number] 4mg Take 1 tablet by mouth every 8 (eight) hours as needed for Nausea and Vomiting (N/V). [facility] pantoprazol e (PROTONIX) 40 mg EC tablet 2020-11 00:00: 00 Yes [id number] 40mg Take 1 tablet by mouth daily. [facility] dicyclomine (BENTYL) 10 mg capsule 2020-11 00:00: 00 12-08 00:00 :00 No [id number] 10mg Take 1 capsule by mouth every 8 (eight) hours as needed for Abdominal pain. [facility] ondansetron 4 mg disintegrat ing tablet 2020-11 00:00: 00 12-08 00:00 :00 No [id number] 4mg Take 1 tablet by mouth every 8 (eight) hours as needed for Nausea and Vomiting (N/V). [facility] sucralfate 1 gram tablet 2020-11 00:00: 00 10-13 00:00 :00 No [id number] 1g Take 1 tablet by mouth before meals and at bedtime. [facility] pantoprazol e (PROTONIX) 40 mg EC tablet 2020-11 00:00: 00 10-13 00:00 :00 No [id number] 40mg Take 1 tablet by mouth daily. [facility] ciprofloxac in HCl 500 mg tablet 11-25 00:00: 00 Yes [id number] 500mg Take 1 tablet by mouth 2 (two) times daily. [facility] ciprofloxac in HCl 500 mg tablet 11-25 00:00: 00 10-13 00:00 :00 No [id number] 500mg Take 1 tablet by mouth 2 (two) times daily. [facility] ondansetron (ZOFRAN ODT) 4 mg disintegrat ing tablet 11-25 00:00: 00 09-23 00:00 :00 No [id number] 4mg Take 1 tablet by mouth every 8 (eight) hours as needed for Nausea and Vomiting (N/V). [facility] cyclobenzap rine 10 mg tablet 2019-11 00:00: 00 Yes [id number] 10mg Take 1 tablet by mouth 3 (three) times daily. [facility] cyclobenzap rine 10 mg tablet 2019-11 00:00: 00 Yes [id number] 10mg Take 1 tablet by mouth 3 (three) times daily. [facility] cyclobenzap rine 10 mg tablet 2019-11 00:00: 00 Yes [id number] 10mg Take 1 tablet by mouth 3 (three) times daily. [facility] cyclobenzap rine 10 mg tablet 2019-11 00:00: 00 Yes [id number] 10mg Take 1 tablet by mouth 3 (three) times daily. [facility] cyclobenzap rine 10 mg tablet 2019-11 00:00: 00 Yes [id number] 10mg Take 1 tablet by mouth 3 (three) times daily. [facility] cyclobenzap rine 10 mg tablet 2019-11 00:00: 00 Yes [id number] 10mg Take 1 tablet by mouth 3 (three) times daily. [facility] cyclobenzap rine 10 mg tablet 2019-11 00:00: 00 Yes [id number] 10mg Take 1 tablet by mouth 3 (three) times daily. [facility] cyclobenzap rine 10 mg tablet 2019-11 00:00: 00 Yes [id number] 10mg Take 1 tablet by mouth 3 (three) times daily. [facility] ibuprofen 600 mg tablet 2019-11 00:00: 00 Yes [id number] 600mg Take 1 tablet by mouth every 6 (six) hours as needed for Pain (scale 4-6). [facility] cyclobenzap rine 10 mg tablet 2019-11 00:00: 00 Yes [id number] 10mg Take 1 tablet by mouth 3 (three) times daily. [facility] ibuprofen 600 mg tablet 2019-11 00:00: 00 10-13 00:00 :00 No [id number] 600mg Take 1 tablet by mouth every 6 (six) hours as needed for Pain (scale 4-6). [facility] ferrous sulfate/vit C/folic ac (FERROUS SULFATE-C-F OLIC ACID ORAL) 02-02 17:08: 08 Yes 1{tbl} Take 1 tablet by mouth daily. [facility] ferrous sulfate/vit C/folic ac (FERROUS SULFATE-C-F OLIC ACID ORAL) 02-02 17:08: 08 Yes 1{tbl} Take 1 tablet by mouth daily. [facility] ferrous sulfate/vit C/folic ac (FERROUS SULFATE-C-F OLIC ACID ORAL) 02-02 17:08: 08 Yes 1{tbl} Take 1 tablet by mouth daily. [facility] ferrous sulfate/vit C/folic ac (FERROUS SULFATE-C-F OLIC ACID ORAL) 02-02 17:08: 08 Yes 1{tbl} Take 1 tablet by mouth daily. [facility] bromphenira mine-pseudo ephedrine-D M (BROMFED DM) 2-30-10 mg/5 mL syrup 02-02 00:00: 00 Yes [id number] 5mL Take 5 mL by mouth 4 (four) times daily as needed for Congestion /Allergies or Cough. [facility] bromphenira mine-pseudo ephedrine-D M (BROMFED DM) 2-30-10 mg/5 mL syrup 02-02 00:00: 00 Yes [id number] 5mL Take 5 mL by mouth 4 (four) times daily as needed for Congestion /Allergies or Cough. [facility] bromphenira mine-pseudo ephedrine-D M (BROMFED DM) 2-30-10 mg/5 mL syrup 02-02 00:00: 00 Yes [id number] 5mL Take 5 mL by mouth 4 (four) times daily as needed for Congestion /Allergies or Cough. [facility] methylPREDN ISolone 4 mg tablets 02-02 00:00: 00 Yes [id number] Take by mouth SEE-INSTRU CTIONS. follow package directions [facility] levoFLOXaci n (LEVAQUIN) 500 mg tablet 0 02-02 00:00: 00 Yes [id number] 500mg Take 1 tablet by mouth every 24 (twenty-fo ur) hours. [facility] bromphenira mine-pseudo ephedrine-D M (BROMFED DM) 2-30-10 mg/5 mL syrup 2019-0 - 00:00: 00 Yes [id number] 5mL Take 5 mL by mouth 4 (four) times daily as needed for Congestion /Allergies or Cough. [facility] bromphenira mine-pseudo ephedrine-D M (BROMFED DM) 2-30-10 mg/5 mL syrup 0 02-02 00:00: 00 05-09 00:00 :00 No [id number] 5mL Take 5 mL by mouth 4 (four) times daily as needed for Congestion /Allergies or Cough. [facility] methylPREDN ISolone 4 mg tablets 02-02 00:00: 00 10-13 00:00 :00 No [id number] Take by mouth SEE-INSTRU CTIONS. follow package directions [facility] levoFLOXaci n (LEVAQUIN) 500 mg tablet 02-02 00:00: 00 10-13 00:00 :00 No [id number] 500mg Take 1 tablet by mouth every 24 (twenty-fo ur) hours. [facility] Immunizations Ordered Immunization Name Filled Immunization Name Date Status Comments Source Td 2016-04-30 00:00:00 Completed [facility] Td 2016-04-30 00:00:00 Completed [facility] Td 2016-04-30 00:00:00 Completed [facility] Td 2016-04-30 00:00:00 Completed [facility] TD, NOS 2016-04-30 00:00:00 Completed [facility] TD, NOS 2016-04-30 00:00:00 Completed [facility] TD, NOS 2016-04-30 00:00:00 Completed [facility] Td 2016-04-30 00:00:00 Completed [facility] Rubella 2010-04-22 00:00:00 Completed [facility] Rubella 2010-04-22 00:00:00 Completed [facility] Rubella 2010-04-22 00:00:00 Completed [facility] Rubella 2010-04-22 00:00:00 Completed [facility] Rubella 2010-04-22 00:00:00 Completed [facility] Rubella 2010-04-22 00:00:00 Completed [facility] Rubella 2010-04-22 00:00:00 Completed [facility] Rubella 2010-04-22 00:00:00 Completed [facility] Td 2006-06-30 00:00:00 Completed [facility] Td 2006-06-30 00:00:00 Completed [facility] Td 2006-06-30 00:00:00 Completed [facility] Td 2006-06-30 00:00:00 Completed [facility] TD, NOS 2006-06-30 00:00:00 Completed [facility] TD, NOS 2006-06-30 00:00:00 Completed [facility] TD, NOS 2006-06-30 00:00:00 Completed [facility] Td 2006-06-30 00:00:00 Completed [facility] Rubella Unknown Completed [facility] TD, NOS Unknown Completed [facility] TD, NOS Unknown Completed [facility] Vital Signs Vital Name Observation Time Observation Value Comments S ource Systolic blood pressure 2023-07-28 14:01:54 128 mm[Hg] [facility] Diastolic blood pressure 2023-07-28 14:01:54 85 mm[Hg] [facility] Heart rate 2023-07-28 14:01:54 75 [facility] 2023-07-28 14:01:54 36.78 [place] [facility] Respiratory rate 2023-07-28 14:01:54 16 /min [facility] Body height 2023-07-28 13:52:00 165.1 cm [facility] Body weight 2023-07-28 13:52:00 96.616 kg [facility] BMI 2023-07-28 13:52:00 35.45 kg/m2 [facility] Oxygen saturation in Arterial blood by Pulse oximetry 2023-07-28 13:52:00 100 /min [facility] Systolic blood pressure 2023-04-30 01:00:00 146 mm[Hg] [facility] Diastolic blood pressure 2023-04-30 01:00:00 78 mm[Hg] [facility] Heart rate 2023-04-30 01:00:00 60 /min [facility] Oxygen saturation in Arterial blood by Pulse oximetry 2023-04-30 01:00:00 100 /min [facility] Body temperature 2023-04-30 00:36:00 37.33 [place] [facility] [facility] Respiratory rate 2023-04-30 00:36:00 16 /min [facility] Body height 2023-04-29 21:27:00 165.1 cm [facility] Body weight 2023-04-29 21:27:00 99.791 kg [facility] BMI 2023-04-29 21:27:00 36.61 kg/m2 [facility] Systolic blood pressure 2023-02-27 15:24:59 144 mm[Hg] [facility] Diastolic blood pressure 2023-02-27 15:24:59 92 mm[Hg] [facility] Heart rate 2023-02-27 15:24:59 87 /min [facility] 2023-02-27 15:24:59 36.61 [place] [facility] Respiratory rate 2023-02-27 15:24:59 16 /min [facility] Body height 2023-02-27 14:40:00 165.1 cm [facility] Body weight 2023-02-27 14:40:00 99.565 kg [facility] BMI 2023-02-27 14:40:00 36.53 kg/m2 [facility] Oxygen saturation in Arterial blood by Pulse oximetry 2023-02-27 14:40:00 98 /min [facility] Systolic blood pressure 2023-01-26 00:30:00 130 mm[Hg] [facility] Diastolic blood pressure 2023-01-26 00:30:00 78 mm[Hg] [facility] Heart rate 2023-01-26 00:30:00 73 /min [facility] Respiratory rate 2023-01-26 00:30:00 16 /min [facility] Oxygen saturation in Arterial blood by Pulse oximetry 2023-01-26 00:30:00 99 /min [facility] Body temperature 2023-01-25 21:24:00 37 [place] [facility] Body weight 2023-01-25 21:24:00 99.791 kg [facility] BMI 2023-01-25 21:24:00 35.51 kg/m2 [facility] Systolic blood pressure 2022-05-10 05:14:00 125 mm[Hg] [facility] Diastolic blood pressure 2022-05-10 05:14:00 81 mm[Hg] [facility] Heart rate 2022-05-10 05:14:00 62 /min [facility] Respiratory rate 2022-05-10 05:14:00 17 /min [facility] Oxygen saturation in Arterial blood by Pulse oximetry 2022-05-10 05:14:00 99 /min [facility] Body temperature 2022-05-10 02:44:00 36.44 [place] [facility] Body height 2022-05-10 02:44:00 167.6 cm [facility] Body weight 2022-05-10 02:44:00 103.828 kg [facility] BMI 2022-05-10 02:44:00 36.95 kg/m2 [facility] Systolic blood pressure 2021-12-24 17:26:00 147 mm[Hg] [facility] Diastolic blood pressure 2021-12-24 17:26:00 80 mm[Hg] [facility] Heart rate 2021-12-24 17:26:00 71 /min [facility] Body temperature 2021-12-24 17:26:00 36.17 [place] [facility] Respiratory rate 2021-12-24 17:26:00 18 /min [facility] Body weight 2021-12-24 17:26:00 86.183 kg [facility] BMI 2021-12-24 17:26:00 29.76 kg/m2 [facility] Oxygen saturation in Arterial blood by Pulse oximetry 2021-12-24 17:26:00 99 /min [facility] Systolic blood pressure 2021-12-08 18:45:00 131 mm[Hg] [facility] Diastolic blood pressure 2021-12-08 18:45:00 91 mm[Hg] [facility] Heart rate 2021-12-08 18:45:00 86 /min [facility] Body temperature 2021-12-08 18:45:00 36.72 [place] [facility] Respiratory rate 2021-12-08 18:45:00 18 /min [facility] Body weight 2021-12-08 18:45:00 86.183 kg [facility] BMI 2021-12-08 18:45:00 29.76 kg/m2 [facility] Oxygen saturation in Arterial blood by Pulse oximetry 2021-12-08 18:45:00 98 /min [facility] Systolic blood pressure 2021-10-13 13:42:00 123 mm[Hg] [facility] Diastolic blood pressure 2021-10-13 13:42:00 78 mm[Hg] [facility] Heart rate 2021-10-13 13:42:00 86 /min Unive [facility] Body temperature 2021-10-13 13:42:00 36.78 [place] [facility] Respiratory rate 2021-10-13 13:42:00 18 /min [facility] Body weight 2021-10-13 13:42:00 86.183 kg [facility] BMI 2021-10-13 13:42:00 29.76 kg/m2 [facility] Oxygen saturation in Arterial blood by Pulse oximetry 2021-10-13 13:42:00 98 /min [facility] Systolic blood pressure 2021-09-23 16:00:00 128 mm[Hg] [facility] Diastolic blood pressure 2021-09-23 16:00:00 79 mm[Hg] [facility] Heart rate 2021-09-23 16:00:00 79 /min [facility] Body temperature 2021-09-23 16:00:00 36.72 [place] [facility] Oxygen saturation in Arterial blood by Pulse oximetry 2021-09-23 16:00:00 100 /min [facility] Respiratory rate 2021-09-23 14:25:00 18 /min [facility] Body height 2021-09-23 14:25:00 170.2 cm [facility] Body weight 2021-09-23 14:25:00 86.183 kg [facility] BMI 2021-09-23 14:25:00 29.76 kg/m2 [facility] Procedures Procedure Date / Time Performed Performing Clinician Source RAPID STREP SCREEN FOR GROUP A 2023-07-28 14:04:00 William Ascencio [facility] NOTICE OF PRIVACY PRACTICES 2023-07-28 13:45:24 [place]assigned, [place] [facility] CONSENT/REFUSAL FOR DIAGNOSIS AND TREATMENT 2023-07-28 13:43:24 Doctor Unassigned, [place] [facility] POCT TEST 2023-04-30 00:37:00 Kyra Medeiros [facility] ASSIGNMENT OF BENEFITS 2023-04-29 23:20:32 Docto r Unassigned, [place] [facility] LIPASE 2023-04-29 23:10:00 Kyra Medeiros [facility] MAGNESIUM 2023-04-29 23:10:00 Kyra Medeiros [facility] COMP. METABOLIC PANEL ([id number]) 2023-04-29 23:10:00 Kyra Medeiros [facility] CBC WITH DIFF 2023-04-29 23:10:00 Kyra Medeiros [facility] URINALYSIS 2023-04-29 23:10:00 Kyra Medeiros [facility] US GALL BLADDER 2023-04-29 22:56:04 [facility] 2023-04-29 21:14:56 Doctor Unassigned, [place] [facility] CONSENT/REFUSAL FOR DIAGNOSIS AND TREATMENT 2023-02-27 14:29:44 Doctor Unassigned, [place] [facility] COMP. METABOLIC PANEL ([id number]) 2023-01-25 22:42:00 Jessica Ballard [facility] ETHANOL 2023-01-25 22:42:00 [facility] CBC WITH DIFF 2023-01-25 22:42:00 Jessica Ballard [facility] URINALYSIS 2023-01-25 22:42:00 [facility] LACTIC ACID WHOLE BLOOD 2023-01-25 22:42:00 Do desean Ballard [facility] URINE DRUG (IMMUNOASSAY) - COMPREHENSIVE DRUG SCREEN W/O REFLEX 2023-01-25 22:42:00 Jessica Ballard [facility] POCT TEST 2023-01-25 22:26:00 Andi Ballard [facility] CONSENT/REFUSAL FOR DIAGNOSIS AND TREATMENT 2023-01-25 21:10:53 Doctor Unassigned, [place] [facility] LIPASE 2022-05-10 03:37:00 Libia Bo [facility] COMP. METABOLIC PANEL ([id number]) 2022-05-10 03:37:00 Libia Bo [facility] CBC WITH DIFF 2022-05-10 03:37:00 Libia Bo [facility] POCT TEST 2022-05-10 02:49:00 Libia Bo [facility] URINALYSIS 2022-05-10 02:48:00 Libia Bo [facility] NOTICE OF PRIVACY PRACTICES 2022-05-10 02:33:25 Doctor Unassigned, [place] [facility] CONSENT/REFUSAL FOR DIAGNOSIS AND TREATMENT 2022-05-10 02:31:34 Doctor Unassigned, [place] [facility] CONSENT/REFUSAL FOR DIAGNOSIS AND TREATMENT 2021-12-24 17:15:06 Doctor Unassigned, [place] [facility] NOTICE OF PRIVACY PRACTICES 2021-12-08 18:35:32 Doctor Unassigned, [place] [facility] CONSENT/REFUSAL FOR DIAGNOSIS AND TREATMENT 2021-12-08 18:35:08 Doctor Unassigned, [place] [facility] ASSIGNMENT OF BENEFITS 2021-10-13 13:51:35 Docto r Unassigned, [place] [facility] CONSENT/REFUSAL FOR DIAGNOSIS AND TREATMENT 2021-10-13 13:36:21 Doctor Unassigned, [place] [facility] COMP. METABOLIC PANEL ([id number]) 2021-09-23 15:35:00 Sridhar Mata [facility] LIPASE 2021-09-23 14:59:00 Sridhar Mata [facility] CBC WITH DIFF 2021-09-23 14:59:00 [facility] CONSENT/REFUSAL FOR DIAGNOSIS AND TREATMENT 2021-09-23 14:17:56 Doctor Unassigned, [place] [facility] Encounters Start Date/Time End Date/Time Encounter Type Admission Type Attending [facility] Facility Care Department Encounter ID Source 2023-07-28 08:53:00 2023-07-28 09:59:00 Emergency X WILLIAM ASCENCIO [facility] ERT [id number] [facility] 2023-07-28 08:53:00 2023-07-28 09:59:00 Emergency William Ascencio [facility] 1.2.840.114 350.1.13.10 4.2.7.2.686 [id number] [facility] 2023-04-29 16:28:00 2023-04-29 20:37:00 Emergency X Kyra MEDEIROS [facility] ERT [id number] [facility] 2023-04-29 16:28:00 2023-04-29 20:37:00 Emergency Kyra Medeiros [facility] 1.2.840.114 350.1.13.10 4.2.7.2.686 [id number] [facility] 2023-02-27 09:51:00 2023-02-27 11:40:00 Emergency X LIBIA BO [facility] ERT [id number] [facility] 2023-02-27 09:51:00 2023-02-27 11:40:00 Emergency Libia Bo [facility] 1.2.840.114 350.1.13.10 4.2.7.2.686 [id number] [id number] [facility] 2023-01-25 16:25:00 2023-01-25 19:50:00 Emergency X JESSICA BALLARD [facility] ERT [id number] [facility] 2023-01-25 16:25:00 2023-01-25 19:50:00 Emergency Jessica Ballard [facility] 1.2.840.114 350.1.13.10 4.2.7.2.686 [id number] [facility] 2022-05-09 21:49:00 2022-05-10 00:20:00 Emergency X LIBIA BO [facility] ERT [id number] [facility] 2022-05-09 21:49:00 2022-05-10 00:20:00 Emergency Libia Bo [facility] 1.2.840.114 350.1.13.10 4.2.7.2.686 [id number] [id number] [facility] 2021-12-24 11:28:00 2021-12-24 13:33:00 Emergency X JAYY AARON [facility] ERT [id number] [facility] 2021-12-24 11:28:00 2021-12-24 13:33:00 Emergency Jayy Aaron [facility] 1.2.840.114 350.1.13.10 4.2.7.2.686 [id number] [facility] 2021-12-08 12:45:00 2021-12-08 14:51:00 Emergency SRIDHAR FRAGA [facility] ERT [id number] [facility] 2021-12-08 12:45:00 2021-12-08 14:51:00 Emergency Sridhar Mata [facility] 1.2.840.114 350.1.13.10 4.2.7.2.686 [id number] [facility] 2021-10-13 07:44:00 2021-10-13 07:58:00 Emergency LATHA HOOKER [facility] ERT [id number] [facility] 2021-10-13 07:44:00 2021-10-13 07:58:00 Emergency Latha Winston [place] [facility] 1.2.840.114 350.1.13.10 4.2.7.2.686 [id number] [facility] 2021-09-23 08:30:00 2021-09-23 10:37:00 Emergency SRIDHAR FRAGA [facility] ERT [id number] [facility] 2021-09-23 08:30:00 2021-09-23 10:37:00 Emergency Sridhar Mata [facility] 1.2.840.114 350.1.13.10 4.2.7.2.686 [id number] [facility] 2020-11-25 15:24:00 2020-11-25 20:37:00 Emergency Swapnil Kyra Nat [facility] 1.2.840.114 350.1.13.10 4.2.7.2.686 [id number] 2020-11-25 15:14:00 2020-11-25 15:14:00 Emergency X [facility] ERT [id number] [facility] 2020-10-31 09:18:00 2020-10-31 12:22:00 Emergency Jack Brower [facility] 1.2.840.114 350.1.13.10 4.2.7.2.686 [id number] 2020-10-31 09:18:00 2020-10-31 09:18:00 Emergency X JACK BROWER [facility] ERT [id number] [facility] 2020-09-11 14:32:00 2020-09-11 16:08:00 Emergency Kyra Medeiros [facility] 1.2.840.114 350.1.13.10 4.2.7.2.686 [id number] 2020-09-11 14:32:00 2020-09-11 14:32:00 Emergency X Kyra MEDEIROS [facility] ERT [id number] [facility] 2020-02-03 17:08:08 2020-02-03 18:20:00 Emergency Anjali Merida [facility] 1.2.840.114 350.1.13.10 4.2.7.2.686 [id number] 2020-02-03 17:00:00 2020-02-03 17:00:00 Emergency ANJALI DYER [facility] ERT [id number] [facility] 2020-02-03 00:00:00 2020-02-03 00:00:00 Orders Only Doctor Unassigned, [place] [facility] 1.2.840.114 350.1.13.10 4.2.7.2.686 [id number] 2020-01-10 23:46:02 2020-01-11 01:01:00 Emergency [facility] 1.2.840.114 350.1.13.10 4.2.7.2.686 [id number] 2020-01-10 23:02:00 2020-01-10 23:02:00 Emergency X [facility] ERT [id number] [facility] 2019-12-18 17:24:37 2019-12-18 18:57:00 Emergency X Kyra MEDEIROS [facility] ERT [id number] [facility] 2019-12-18 17:24:37 2019-12-18 18:57:00 Emergency Kyra Medeiros [facility] 1.2.840.114 350.1.13.10 4.2.7.2.686 [id number] 2019-12-18 00:00:00 2019-12-18 00:00:00 Orders Only Doctor Unassigned, [place] [facility] 1.2.840.114 350.1.13.10 4.2.7.2.686 [id number] 2019-06-29 02:13:29 2019-06-29 04:06:00 Emergency Jesseearltetebrittney Sony [facility] 1.2.840.114 350.1.13.10 4.2.7.2.686 [id number] [id number] Results Test Description Test Time Test Comments Results Result Co mments Source [facility] 23:48:53* Test Item Value Reference Range Interpretation Comme nts MAGNESIUM (test code = 1488097621) 2.0 mg/dL 1.7-2.4 Lab Interpretation (test cod e = 04850-5) [facility] (34779)2023-04-29 23:48:33* Test Item Value Reference Range Interpretation Comme nts NA (test code = 5027692365) 138 mmol/L 135-145 K (test code = 6167946798) 4.1 mmol/L 3.5-5.0 CL (test code = 7265604293) 104 mmol/L 98-108 CO2 TOTAL (test code = 3153502940) 25 mmol/L 23-31 AGAP (test code = 7292386385) 9 2-16 BUN (test code = 1814240486) 14 mg/dL 7-23 GLUCOSE (test code = 4800775843) 88 mg/dL 70-110 CREATININE (test code = 8875231908) 0.80 mg/dL 0.50-1.04 TOTAL BILI (test code = 4454732387) 0.4 mg/dL 0.1-1.1 CALCIUM (test code = 0463177235) 9.2 mg/dL 8.6-10.6 T PROTEIN (test code = 4556952903) 7.0 g/dL 6.3-8.2 ALBUMIN (test code = 6258693170) 4.3 g/dL 3.5-5.0 ALK PHOS (test code = 5858623375) 40 U/L 34-122 ALTv (test code = 1742-6) 18 U/L 5-35 AST(SGOT) (test code = 5670448179) 21 U/L 13-40 eGFR (test code = 8141095788) 83.7 mL/min/1.73m2 JASMYN (test code = JASMYN) Association [...] or urine or abnormalities in imaging tests). [facility] 23:48:33* Test Item Value Reference Range Interpretation Comme nts LIPASE (test code = 7662455786) 41 U/L 0-220 Lab Interpretation (test cod e = 73721-3) [facility] [id number] 23:37:31* Test Item Value Reference Range Interpretation Comme nts WBC (test code = 6690-2) 6.41 See_Comment [Automated [employer]] The system which generated this result transmitted reference range: 4.30 - 11.10 10*3/?L. The reference range was not used to interpret this result as normal/abnormal. RBC (test code = 789-8) 4.49 See_Comment [[employer]] The system which generated this result transmitted reference range: 3.93 - 5.25 10*6/?L. The reference range was not used to interpret this result as normal/abnormal. HGB (test code = 718-7) 10.6 g/dL 11.6-15.0 L HCT (test code = 4544-3) 33.8 % 35.7-45.2 L MCV (test code = 787-2) 75.3 fL 80.6-95.5 L MCH (test code = 785-6) 23.6 pg 25.9-32.8 L MCHC (test code = 786-4) 31.4 g/dL 31.6-35.1 L RDW-SD (test code = 07591-7) 44.7 fL 39.0-49.9 RDW-CV (test code = 788-0) 16.4 % 12.0-15.5 H PLT (test code = 777-3) 341 See_Comment [[employer]] The system which generated this result transmitted reference range: 166 - 358 10*3/?L. The reference range was not used to interpret this result as normal/abnormal. MPV (test code = 28266-0) 9.9 fL 9.5-12.9 NRBC/100 WBC (test code = 2244345505) 0.0 See_Comment [Automated me ssage] The system which generated this result transmitted reference range: 0.0 - 10.0 /100 WBCs. The reference range was not used to interpret this result as normal/abnormal. NRBC x10^3 (test code = 0500676373) See_Comment [Automated messa ge] The system which generated this result transmitted reference range: 10*3/?L. The reference range was not used to interpret this result as normal/abnormal. GRAN MAT (NEUT) % (test code = 770-8) 59.5 % IMM GRAN % (test code = 8271994685) 0.20 % LYMPH % (test code = 736-9) 28.9 % MONO % (test code = 5905-5) 7.8 % EOS % (test code = 713-8) 2.8 % BASO % (test code = 706-2) 0.8 % GRAN MAT x10^3(ANC) (test code = 9084395269) 3.82 10*3/uL 1.88-7.09 IMM GRAN x10^3 (test code = 9722122666) 0.00-0.06 LYMPH x10^3 (test code = 731-0) 1.85 10*3/uL 1.32-3.29 MONO x10^3 (test code = 742-7) 0.50 10*3/uL 0.33-0.92 EOS x10^3 (test code = 711-2) 0.18 10*3/uL 0.03-0.39 BASO x10^3 (test code = 704-7) 0.05 10*3/uL 0.01-0.07 Lab Interpretation (test code = 21349-7) [facility]normal [facility] 23:29:13 ALCOHOL<10mg/dL01/25/2023 6:29 [facility]10 [id number] Toxic>100 Depression of [employer]>400 Fatalities [facility]UnThe [facility]. METABOLIC PANEL (34543)2023-01-25 23:23:54* Test Item Value Reference Range Interpretation Comme nts NA (test code = 8878802616) 138 mmol/L 135-145 K (test code = 7890728070) 4.3 mmol/L 3.5-5.0 CL (test code = 0977109603) 104 mmol/L 98-108 CO2 TOTAL (test code = 5183129967) 24 mmol/L 23-31 AGAP (test code = 0752631517) 10 2-16 BUN (test code = 1498559771) 15 mg/dL 7-23 GLUCOSE (test code = 7240093550) 84 mg/dL 70-110 CREATININE (test code = 4511218316) 0.89 mg/dL 0.50-1.04 TOTAL BILI (test code = 1662177597) 0.5 mg/dL 0.1-1.1 CALCIUM (test code = 1634334051) 9.2 mg/dL 8.6-10.6 T PROTEIN (test code = 8572297030) 7.2 g/dL 6.3-8.2 ALBUMIN (test code = 1871656818) 4.3 g/dL 3.5-5.0 ALK PHOS (test code = 7324462292) 37 U/L 34-122 ALTv (test code = 1742-6) 18 U/L 5-35 AST(SGOT) (test code = 4726123101) 21 U/L 13-40 eGFR (test code = 5138979517) 74.0 mL/min/1.73m2 JASMYN (test code = JASMYN) [...] or urine or abnormalities in imaging tests). [facility] WITH [id number] 23:10:11* Test Item Value Reference Range Interpretation Comme nts WBC (test code = 6690-2) 7.27 See_Comment [[employer]] The system which generated this result transmitted reference range: 4.30 - 11.10 10*3/?L. The reference range was not used to interpret this result as normal/abnormal. RBC (test code = 789-8) 4.69 See_Comment [[employer]] The system which generated this result transmitted reference range: 3.93 - 5.25 10*6/?L. The reference range was not used to interpret this result as normal/abnormal. HGB (test code = 718-7) 11.1 g/dL 11.6-15.0 L HCT (test code = 4544-3) 36.9 % 35.7-45.2 MCV (test code = 787-2) 78.7 fL 80.6-95.5 L MCH (test code = 785-6) 23.7 pg 25.9-32.8 L MCHC (test code = 786-4) 30.1 g/dL 31.6-35.1 L RDW-SD (test code = 09042-1) 46.2 fL 39.0-49.9 RDW-CV (test code = 788-0) 16.4 % 12.0-15.5 H PLT (test code = 777-3) 381 See_Comment H [[employer]] The system which generated this result transmitted reference range: 166 - 358 10*3/?L. The reference range was not used to interpret this result as normal/abnormal. MPV (test code = 61990-2) 10.0 fL 9.5-12.9 NRBC/100 WBC (test code = 3807237041) 0.0 See_Comment [Automated me ssage] The system which generated this result transmitted reference range: 0.0 - 10.0 /100 WBCs. The reference range was not used to interpret this result as normal/abnormal. NRBC x10^3 (test code = 0038576617) See_Comment [Automated messa ge] The system which generated this result transmitted reference range: 10*3/?L. The reference range was not used to interpret this result as normal/abnormal. GRAN MAT (NEUT) % (test code = 770-8) 61.7 % IMM GRAN % (test code = 5028438863) 0.60 % LYMPH % (test code = 736-9) 28.1 % MONO % (test code = 5905-5) 6.2 % EOS % (test code = 713-8) 2.8 % BASO % (test code = 706-2) 0.6 % GRAN MAT x10^3(ANC) (test code = 4346110659) 4.50 10*3/uL 1.88-7.09 IMM GRAN x10^3 (test code = 1120605813) 0.04 10*3/uL 0.00-0.06 LYMPH x10^3 (test code = 731-0) 2.04 10*3/uL 1.32-3.29 MONO x10^3 (test code = 742-7) 0.45 10*3/uL 0.33-0.92 EOS x10^3 (test code = 711-2) 0.20 10*3/uL 0.03-0.39 BASO x10^3 (test code = 704-7) 0.04 10*3/uL 0.01-0.07 Lab Interpretation (test code = 93540-1) [facility]normal [facility] [id number] 22:26:00* Test Item Value Reference Range Interpretation Comme nts POCT PREG (test code = 1605) neg On board controls acceptable with C Line (test code = 3574) present Lab Interpretation (test cod e = 44822-9) Normal [facility] (10859)2022-05-10 04:28:49* Test Item Value Reference Range Interpretation Comme nts NA (test code = 2388931341) 138 mmol/L 135-145 K (test code = 7995925915) 4.2 mmol/L 3.5-5.0 CL (test code = 8734073425) 104 mmol/L 98-108 CO2 TOTAL (test code = 2893345356) 25 mmol/L 23-31 AGAP (test code = 6146204788) 2-16 BUN (test code = 6221495196) 9 mg/dL 7-23 GLUCOSE (test code = 9449673717) 103 mg/dL 70-110 CREATININE (test code = 3784252792) 0.78 mg/dL 0.50-1.04 TOTAL BILI (test code = 1413722718) 0.3 mg/dL 0.1-1.1 CALCIUM (test code = 5431088944) 9.4 mg/dL 8.6-10.6 T PROTEIN (test code = 6112172124) 7.1 g/dL 6.3-8.2 ALBUMIN (test code = 4160839048) 4.4 g/dL 3.5-5.0 ALK PHOS (test code = 3310841774) 55 U/L 34-122 ALTv (test code = 1742-6) 25 U/L 5-35 AST(SGOT) (test code = 9575700293) 23 U/L 13-40 eGFR (test code = 3966849286) mL/min/1.73m2 JASMYN (test code = JASMYN) Association [...] or urine or abnormalities in imaging tests). [facility] 04:28:29* Test Item Value Reference Range Interpretation Comme nts LIPASE (test code = 9473324015) 58 U/L 0-220 Lab Interpretation (test cod e = 16443-9) [facility] [id number] 03:54:04* Test Item Value Reference Range Interpretation Comme nts WBC (test code = 6690-2) See_Comment [Automated [employer]] The system which generated this result transmitted reference range: 4.30 - 11.10 10*3/?L. The reference range was not used to interpret this result as normal/abnormal. RBC (test code = 789-8) See_Comment [Automated [employer]] The system which generated this result transmitted reference range: 3.93 - 5.25 10*6/?L. The reference range was not used to interpret this result as normal/abnormal. HGB (test code = 718-7) 11.8 g/dL 11.6-15.0 HCT (test code = 4544-3) 37.4 % 35.7-45.2 MCV (test code = 787-2) 76.6 fL 80.6-95.5 L MCH (test code = 785-6) 24.2 pg 25.9-32.8 L MCHC (test code = 786-4) 31.6 g/dL 31.6-35.1 RDW-SD (test code = 16721-3) 46.1 fL 39.0-49.9 RDW-CV (test code = 788-0) 16.5 % 12.0-15.5 H PLT (test code = 777-3) See_Comment H [Automated messa ge] The system which generated this result transmitted reference range: 166 - 358 10*3/?L. The reference range was not used to interpret this result as normal/abnormal. MPV (test code = 34905-8) 10.0 fL 9.5-12.9 NRBC/100 WBC (test code = 0840930547) See_Comment [Automated me ssage] The system which generated this result transmitted reference range: 0.0 - 10.0 /100 WBCs. The reference range was not used to interpret this result as normal/abnormal. NRBC x10^3 (test code = 6264356195) <0.01 See_Comment [Automated messa ge] The system which generated this result transmitted reference range: 10*3/?L. The reference range was not used to interpret this result as normal/abnormal. GRAN MAT (NEUT) % (test code = 770-8) 57.9 % IMM GRAN % (test code = 5443488143) 0.10 % LYMPH % (test code = 736-9) 31.1 % MONO % (test code = 5905-5) 7.2 % EOS % (test code = 713-8) 3.4 % BASO % (test code = 706-2) 0.3 % GRAN MAT x10^3(ANC) (test code = 4014869894) 4.08 10*3/uL 1.88-7.09 IMM GRAN x10^3 (test code = 7735355981) <0.03 0.00-0.06 LYMPH x10^3 (test code = 731-0) 2.19 10*3/uL 1.32-3.29 MONO x10^3 (test code = 742-7) 0.51 10*3/uL 0.33-0.92 EOS x10^3 (test code = 711-2) 0.24 10*3/uL 0.03-0.39 BASO x10^3 (test code = 704-7) <0.03 0.01-0.07 Lab Interpretation (test code = 67499-0) Abnormal [facility] [id number] 02:49:00* Test Item Value Reference Range Interpretation Comme nts POCT PREG (test code = 1605) Negative On board controls acceptable with C Line (test code = 3574) Positive POCT PREG LOT # (test code = 3572) HCG [id number] POCT PREG TEST DATE ( test code = 3576) 08/31/2023 Lab Interpretation (test cod e = 80074-7) Normal [facility]. METABOLIC PANEL (37861)2021-09-23 16:10:10* Test Item Value Reference Range Interpretation Comme nts NA (test code = 9013185482) 135 mmol/L 135-145 K (test code = 9557872083) 4.5 mmol/L 3.5-5.0 CL (test code = 8385003982) 101 mmol/L 98-108 CO2 TOTAL (test code = 9283988152) 28 mmol/L 23-31 AGAP (test code = 9322986826) 2-16 BUN (test code = 8033914115) 19 mg/dL 7-23 GLUCOSE (test code = 8287581380) 94 mg/dL 70-110 CREATININE (test code = 7037551926) 0.83 mg/dL 0.50-1.04 TOTAL BILI (test code = 2658791612) 0.5 mg/dL 0.1-1.1 CALCIUM (test code = 3398567673) 9.9 mg/dL 8.6-10.6 T PROTEIN (test code = 1474069998) 7.6 g/dL 6.3-8.2 ALBUMIN (test code = 4064670008) 4.5 g/dL 3.5-5.0 ALK PHOS (test code = 3628169158) 52 U/L 34-122 ALTv (test code = 1742-6) 15 U/L 5-35 AST(SGOT) (test code = 0480810162) 21 U/L 13-40 eGFR (test code = 9096514761) mL/min/1.73m2 JASMYN (test code = JASMYN) Association [...] or urine or abnormalities in imaging tests). [facility] Test Item Value Reference Range Interpretation Comme nts LIPASE (test code = 8370337190) 72 U/L 0-220 Lab Interpretation (test cod e = 48175-8) [facility] [id number] 15:37:27* Test Item Value Reference Range Interpretation Comme nts WBC (test code = 6690-2) See_Comment [Automated [employer]] The system which generated this result transmitted reference range: 4.30 - 11.10 10*3/?L. The reference range was not used to interpret this result as normal/abnormal. RBC (test code = 789-8) See_Comment [Automated [employer]] The system which generated this result transmitted reference range: 3.93 - 5.25 10*6/?L. The reference range was not used to interpret this result as normal/abnormal. HGB (test code = 718-7) 13.2 g/dL 11.6-15.0 HCT (test code = 4544-3) 42.5 % 35.7-45.2 MCV (test code = 787-2) 85.3 fL 80.6-95.5 MCH (test code = 785-6) 26.5 pg 25.9-32.8 MCHC (test code = 786-4) 31.1 g/dL 31.6-35.1 L RDW-SD (test code = 97749-9) 43.4 fL 39.0-49.9 RDW-CV (test code = 788-0) 14.0 % 12.0-15.5 PLT (test code = 777-3) See_Comment H [Automated messa ge] The system which generated this result transmitted reference range: 166 - 358 10*3/?L. The reference range was not used to interpret this result as normal/abnormal. MPV (test code = 99497-2) 10.4 fL 9.5-12.9 NRBC/100 WBC (test code = 0419784113) See_Comment [Automated [employer] ssage] The system which generated this result transmitted reference range: 0.0 - 10.0 /100 WBCs. The reference range was not used to interpret this result as normal/abnormal. NRBC x10^3 (test code = 3762572378) <0.01 See_Comment [Automated messa ge] The system which generated this result transmitted reference range: 10*3/?L. The reference range was not used to interpret this result as normal/abnormal. GRAN MAT (NEUT) % (test code = 770-8) 60.5 % IMM GRAN % (test code = 4176879430) 0.30 % LYMPH % (test code = 736-9) 28.4 % MONO % (test code = 5905-5) 6.4 % EOS % (test code = 713-8) 3.6 % BASO % (test code = 706-2) 0.8 % GRAN MAT x10^3(ANC) (test code = 2680117213) 3.71 10*3/uL 1.88-7.09 IMM GRAN x10^3 (test code = 5657660815) <0.03 0.00-0.06 LYMPH x10^3 (test code = 731-0) 1.74 10*3/uL 1.32-3.29 MONO x10^3 (test code = 742-7) 0.39 10*3/uL 0.33-0.92 EOS x10^3 (test code = 711-2) 0.22 10*3/uL 0.03-0.39 BASO x10^3 (test code = 704-7) 0.05 10*3/uL 0.01-0.07 Lab Interpretation (test code = 17105-5) Abnormal [facility]"
[2023-10-31 17:16] LABS: SARS-CoV-2 Antigen Rapid Res Negative (Negative)
--- NOTE | 2023-10-31 18:05 | ER ---
Nurse's Notes [facility] Name: Genesis Hu Age: 33 yrs Sex: Female : 1990 Arrival Date: 10/31/2023 Time: 16:17 Bed 10 Private MD: Diagnosis: Acute upper respiratory infection, unspecified Presentation: 10/31 16:38 Chief complaint: Patient states: Pt c/o sore throat, chest congestion, and fever x 3 tl4 weeks. Pt was diagnosed with tonsilitis approx 3 weeks ago. Pt states she still does not feel better despite antibiotic. Coronavirus screen: Vaccine status: Patient reports being unvaccinated. chills, congestion, cough unrelated to allergies, fatigue, fever, sore throat. Ebola Screen: Patient negative for fever greater than or equal to 101.5 degrees Fahrenheit, and additional compatible Ebola Virus Disease symptoms Patient denies exposure to infectious person. Patient denies travel to an Ebola-affected area in the 21 days before illness onset. No symptoms or risks identified at this time. Initial Sepsis Screen: Does the patient meet any 2 criteria? No. Patient's initial sepsis screen is negative. Does the patient have a suspected source of infection? No. Patient's initial sepsis screen is negative. Risk Assessment: Do you want to hurt yourself or someone else? Patient reports no desire to harm self or others. Onset of symptoms was October 10, 2023. 16:38 Method Of Arrival: Ambulatory tl4 16:38 Acuity: KRISTIN 3 tl4 Triage Assessment: 16:43 General: Appears in no apparent distress. Behavior is calm, cooperative. Pain: tl4 Complains of pain in throat. EENT: Reports sore throat. Historical: - Allergies: 16:42 POISON VIMAL; tl4 16:42 PENICILLINS; tl4 16:42 Latex; tl4 16:42 Bleach (Sodium Hypochlorite); tl4 16:42 Bees; tl4 16:42 Amoxicillin; tl4 - PMHx: 16:42 Anxiety; hiatal hernia; Ovarian cyst; PCOS; peptic ulcer; tl4 - PSHx: 16:42 section; laparoscopy; tubal ligation; tl4 - Immunization history:: Adult Immunizations unknown. - Social history:: Smoking status: Patient denies any tobacco usage or history of. Screenin:38 [facility] ED Fall Risk Assessment (Adult) History of falling in the last 3 months, bp including since admission No falls in past 3 months (0 pts). Abuse screen: Denies threats or abuse. Denies injuries from another. Nutritional screening: No deficits noted. Tuberculosis screening: No symptoms or risk factors identified. Assessment: 18:38 Respiratory: Airway is patent Respiratory effort is even, unlabored, Breath sounds are bp clear bilaterally. EENT: Nares are clear. Vital Signs: 16:38 BP 136 / 77; Pulse 74; Resp 18; Pulse Ox 100% on R/A; Weight 96.62 kg; Height 5 ft. 5 tl4 in. ; Pain 5/10; 16:38 Body Mass Index 35.44 (96.62 kg, 165.1 cm) tl4 16:38 Pain Scale: Adult tl4 ED Course: 16:18 Patient arrived in ED. ts1 16:37 Xin Green FNP is PHCP. jh7 16:37 Timmy Barrera MD is Attending Physician. jh7 16:42 Triage completed. tl4 16:44 Arm band placed on left wrist. tl4 16:52 Flu Sent. tl4 16:52 SARS RAPID Sent. tl4 16:52 Strep Sent. tl4 17:12 Farhat Woo, RN is Primary Nurse. bp 17:35 [place] Screen Profile Sent. bp 18:01 PHCP role handed off by Xin Green FNP kb 18:01 Charity Bates [facility]C [facility] kb 18:38 Patient has correct armband on for positive identification. bp 18:38 No provider procedures requiring assistance completed. Patient did not have IV access bp during this emergency room visit. Administered Medications: No medications were administered Outcome: 18:04 Discharge ordered by . kb 18:38 Discharged to home ambulatory, bp 18:38 Condition: stable 18:38 Discharge instructions given to patient, Instructed on discharge instructions, follow up and referral plans. Demonstrated understanding of instructions, follow-up care, 18:39 Patient left the ED. bp Signatures: Charity Bates FNP-C FNP-Farhat Morin, RN RN Xin Gallegos FNP FNP [facility] Emma Dickey PAS PAS ts1 [place], Bill tl4
--- NOTE | 2023-10-31 18:05 | EDPHYS ---
Physician Documentation [facility] Name: Genesis Hu Age: 33 yrs Sex: Female : 1990 Arrival Date: 10/31/2023 Time: 16:17 Bed 10 Private MD: ED Physician Timmy Barrera HPI: 10/31 16:38 This 33 yrs old Female presents to ER via Ambulatory with complaints of Sore Throat, jh7 Cough, Fever. 16:38 The patient presents with sore throat. The patient describes throat pain as burning, jh7 constant. Onset: The symptoms/episode began/occurred 3 week(s) ago. Associated signs and symptoms: Pertinent positives: cough, fever, body aches, malaise. 33-year-old female presents to the ER for sore throat for 3 weeks. She reports she was diagnosed with tonsillitis but still does not feel any better. She also reports intermittent fever and a cough that just started. Reports that she had a fever yesterday but did not remember how high her temperature was.. Historical: - Allergies: 16:42 POISON VIMAL; tl4 16:42 PENICILLINS; tl4 16:42 Latex; tl4 16:42 Bleach (Sodium Hypochlorite); tl4 16:42 Bees; tl4 16:42 Amoxicillin; tl4 - PMHx: 16:42 Anxiety; hiatal hernia; Ovarian cyst; PCOS; peptic ulcer; tl4 - PSHx: 16:42 section; laparoscopy; tubal ligation; tl4 - Immunization history:: Adult Immunizations unknown. - Social history:: Smoking status: Patient denies any tobacco usage or history of. ROS: 16:38 Eyes: Negative for injury, pain, redness, and discharge, Neck: Negative for injury, jh7 pain, and swelling, Cardiovascular: Negative for chest pain, palpitations, and edema, Abdomen/GI: Negative for abdominal pain, nausea, vomiting, diarrhea, and constipation, Back: Negative for injury and pain, MS/Extremity: Negative for injury and deformity, Skin: Negative for injury, rash, and discoloration, Neuro: Negative for headache, weakness, numbness, tingling, and seizure, 16:38 Constitutional: Positive for body aches, fever, 16:38 ENT: Positive for sore throat, 16:38 Respiratory: Positive for cough, 16:38 All other systems are negative, Exam: 16:38 Constitutional: This is a well developed, well nourished patient who is awake, alert, jh7 and in no acute distress. Head/Face: Normocephalic, atraumatic. Eyes: Pupils equal round and reactive to light, extra-ocular motions intact. Lids and lashes normal. Conjunctiva and sclera are non-icteric and not injected. Cornea within normal limits. Periorbital areas with no swelling, redness, or edema. ENT: Nares patent. No nasal discharge, no septal abnormalities noted. Oropharynx with no redness, swelling, or masses, exudates, or evidence of obstruction, uvula midline. Mucous membranes moist. Small left tonsil stone present. Neck: Trachea midline, no thyromegaly or masses palpated, and no cervical lymphadenopathy. Supple, full range of motion without nuchal rigidity, or vertebral point tenderness. No Meningismus. Cardiovascular: Regular rate and rhythm with a normal S1 and S2. No gallops, murmurs, or rubs. Normal PMI, no JVD. No pulse deficits. Respiratory: Lungs have equal breath sounds bilaterally, clear to auscultation and percussion. No rales, rhonchi or wheezes noted. No increased work of breathing, no retractions or nasal flaring. Abdomen/GI: Soft, non-tender, with normal bowel sounds. No distension or tympany. No guarding or rebound. No evidence of tenderness throughout. Skin: Warm, dry with normal turgor. Normal color with no rashes, no lesions, and no evidence of cellulitis. MS/ Extremity: Pulses equal, no cyanosis. Neurovascular intact. Full, normal range of motion. Neuro: Awake and alert, GCS 15, oriented to person, place, time, and situation. Motor strength 5/5 in all extremities. Sensory grossly intact. Normal gait. Vital Signs: 16:38 BP 136 / 77; Pulse 74; Resp 18; Pulse Ox 100% on R/A; Weight 96.62 kg; Height 5 ft. 5 tl4 in. ; Pain 5/10; 16:38 Body Mass Index 35.44 (96.62 kg, 165.1 cm) tl4 16:38 Pain Scale: Adult tl4 MDM: 16:37 Patient medically screened. [facility] 18:04 Differential diagnosis: flu, covid, strep, mono. Data reviewed: vital signs, nurses kb notes. I considered the following discharge prescriptions or medication management in the emergency department I discussed and recommended Over The Counter medications, Antibiotics: At this time antibiotics are not recommended, Antivirals: At this time, antivirals are not recommended. Counseling: I had a detailed discussion with the patient and/or guardian regarding the historical points, exam findings, and any diagnostic results supporting the discharge/admit diagnosis, lab results, the need for outpatient follow up, a family practitioner, to return to the emergency department if symptoms worsen or persist or if there are any questions or concerns that arise at home. 10/31 16:37 Order name: Strep [facility] 10/31 16:37 Order name: SARS RAPID; Complete Time: 17:24 [facility] 10/31 16:37 Order name: Flu; Complete Time: 17:48 [facility] 10/31 16:49 Order name: [place] Screen Profile; Complete Time: 18:03 [facility] 10/31 17:50 Order name: Throat Culture EDMS Administered Medications: No medications were administered Disposition: 11/01 08:57 Co-signature as Attending Physician, Timmy Barrera MD I reviewed the patient's care rn provided by the Advanced Practice Provider and agree with the diagnosis and treatment plan. Disposition Summary: 10/31/23 18:04 Discharge Ordered Notes: Location: Home kb Condition: Stable kb Diagnosis - Acute upper respiratory infection, unspecified kb Followup: kb - With: Emergency Department - When: As needed - Reason: Worsening of condition Followup: kb - With: Private Physician - When: 2 - 3 days - Reason: Recheck today's complaints, Continuance of care, Re-evaluation by your physician Discharge Instructions: - Discharge Summary Sheet kb - Upper Respiratory Infection, Adult, [id number] kb - Viral Respiratory Infection, [id number] kb Forms: - Medication Reconciliation Form kb - Thank You Letter kb - Antibiotic Education kb - Prescription Opioid Use kb - Patient Portal Instructions kb - Leadership Thank You Letter kb Signatures: Dispatcher [employer] EDCharity Mckinney, TRISTIN GIRARD-Timmy Ch MD MD rn Hadash, Jennifer, SHAJI [employer] 7 Logda, Bill 4 Corrections: (The following items were deleted from the chart) 10/31 17:48 16:38 33-year-old female presents to the ER for sore throat for 3 weeks. She reports jh7 she was diagnosed with tonsillitis but still does not feel any better. She also reports intermittent cough and intermittent fever. Reports that she had a fever yesterday but did not remember how high her temperature was.. jh7 17:50 16:38 Constitutional: This is a well developed, well nourished patient who is awake, jh7 alert, and in no acute distress. Head/Face: Normocephalic, atraumatic. Eyes: Pupils equal round and reactive to light, extra-ocular motions intact. Lids and lashes normal. Conjunctiva and sclera are non-icteric and not injected. Cornea within normal limits. Periorbital areas with no swelling, redness, or edema. ENT: Nares patent. No nasal discharge, no septal abnormalities noted. Oropharynx with no redness, swelling, or masses, exudates, or evidence of obstruction, uvula midline. Mucous membranes moist. Neck: Trachea midline, no thyromegaly or masses palpated, and no cervical lymphadenopathy. Supple, full range of motion without nuchal rigidity, or vertebral point tenderness. No Meningismus. Cardiovascular: Regular rate and rhythm with a normal S1 and S2. No gallops, murmurs, or rubs. Normal PMI, no JVD. No pulse deficits. Respiratory: Lungs have equal breath sounds bilaterally, clear to auscultation and percussion. No rales, rhonchi or wheezes noted. No increased work of breathing, no retractions or nasal flaring. Abdomen/GI: Soft, non-tender, with normal bowel sounds. No distension or tympany. No guarding or rebound. No evidence of tenderness throughout. Skin: Warm, dry with normal turgor. Normal color with no rashes, no lesions, and no evidence of cellulitis. MS/ Extremity: Pulses equal, no cyanosis. Neurovascular intact. Full, normal range of motion. Neuro: Awake and alert, GCS 15, oriented to person, place, time, and situation. Motor strength 5/5 in all extremities. Sensory grossly intact. Normal gait. [facility]
[2023-10-31 18:58] VITALS: BP 136/77; O2SAT 100
== END ==
LOC: ER 16:17
DX: J06.9 Acute upper respiratory infection, unspecified (principal); Z11.52 Encounter for screening for COVID-19
CPT/HCPCS: 36415; 86308; 87070; 87081; 87804; 87811; 99283

== ENCOUNTER 2024-03-14 12:56 | Emergency (ER) | payer OTHER ==
[2024-03-14] MEDS ORDERED: AZITHROMYCIN 250 MG TAB ONE (13:26)
[2024-03-14] MEDS ORDERED: CEFTRIAXONE 1000 MG/VIAL ONE (13:50)
[2024-03-14] MEDS ORDERED: dexAMETHasone 10 MG/ML VIAL ONE (13:50)
[2024-03-14] MEDS ORDERED: NA CHLORIDE 0.9% 1,000 ML ONE (13:51)
[2024-03-14 14:08] LABS: SARS-CoV-2 Antigen CONTROL BLUE LINE VIS/BG OK; SARS-CoV-2 Antigen Rapid Res Negative (Negative)
--- NOTE | 2024-03-14 14:24 | RAD REPORT ---
EXAM DESCRIPTION: CT - Soft Tissue Neck W/Contr CLINICAL HISTORY: SORE THROAT Neck pain and swelling COMPARISON: <Comparisons> TECHNIQUE All CT scans are performed using dose optimization technique as appropriate and may includ e automated exposure control or mA/KV adjustment according to patient size. FINDINGS: Nasopharyngeal tissues are normal in appearance. Fossa Rosenmller are normal. Parapharyngeal fat triangles are symmetric. Tongue base structures are normal. No peritonsillar abscess. No prevertebral fluid. Normal thyroid gland. The vocal cords are normal in appearance. Salivary glands are normal in appearance. Upper lung angeles are clear. Included intracranial contents are unremarkable. IMPRESSION: No acute abnormality detected.
[2024-03-14 14:53] LABS: Absolute Eosinophils 0.1 K/uL (0-0.5); Absolute Lymphocytes (CBC) 2.1 K/uL (0.7-4.9); Absolute Monocytes 0.4 K/uL (0.1-1.3); Absolute Neutrophil 6.8 K/uL (1.8-8.0); Basophils % 0.4 % (0-1.3); Eosinophils % 1.1 % (0-4.4); Hematocrit 31.5 % (36.0-45.0); Hemoglobin 9.3 g/dL (12.0-15.0); Lymphocytes % 22.2 % (15.3-44.8); MCH 19.8 pg (27.0-35.0); MCHC 29.5 g/dL (32.0-36.0); MCV 67.2 fL (80-100); MPV 8.3 fL (7.6-11.3); Monocytes % 4.2 % (3.3-12.3); Neutrophils % 72.1 % (41.7-73.7); Platelets 379 thou/uL (152-406); RBC Red Blood Cell Count 4.68 M/uL (3.86-4.86); Red Cell Distribution Width 19.7 % (12.1-15.2)
[2024-03-14 14:58] LABS: Calcium Oxalate Crystals- Ur Few /HPF (None Seen); Urine Bacteria <20 /HPF (<20); Urine Bilirubin NEGATIVE (Negative); Urine Blood Negative (Negative); Urine Clarity Extremely Turbid (Clear); Urine Color Colorless (Yellow); Urine Culture Reflex Order NOT NEEDED; Urine Glucose NEGATIVE (Negative); Urine Ketones NEGATIVE (Negative); Urine Microscopic Reflex YN ORDER UMIC; Urine Mucus Slight /HPF (None Seen); Urine Nitrite NEGATIVE (Negative); Urine Protein NEGATIVE (Negative); Urine RBC <5 /HPF (None Seen); Urine Urobilinogen Normal (Normal); Urine WBC <5 /HPF (<5)
--- NOTE | 2024-03-14 14:59 | ER ---
Nurse's Notes [facility] Name: Genesis Hu Age: 33 yrs Sex: Female : 1990 Arrival Date: 03/14/2024 Time: 12:56 Bed 2 Private MD: Diagnosis: Acute pharyngitis, unspecified;Acute tonsillitis, unspecified-peritonsillitis Presentation: 03/14 13:09 Chief complaint: Patient states: sever red tonsils and feels like there is an abscess iw on left side , symptoms X 2 days. Coronavirus screen: At this time, the client does not indicate any symptoms associated with coronavirus-19. Ebola Screen: Patient negative for fever greater than or equal to 101.5 degrees Fahrenheit, and additional compatible Ebola Virus Disease symptoms Patient denies exposure to infectious person. Patient denies travel to an Ebola-affected area in the 21 days before illness onset. No symptoms or risks identified at this time. Initial Sepsis Screen: Does the patient meet any 2 criteria? No. Patient's initial sepsis screen is negative. Does the patient have a suspected source of infection? No. Patient's initial sepsis screen is negative. Risk Assessment: Do you want to hurt yourself or someone else? Patient reports no desire to harm self or others. Onset of symptoms was March 12, 2024. 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 - Infectious Disease History:: Denies. - Social history:: Smoking status: Patient denies any tobacco usage or history of. Screenin:20 [facility] ED Fall Risk Assessment (Adult) History of falling in the last 3 months, me1 including since admission No falls in past 3 months (0 pts) Confusion or Disorientation No (0 pts) Intoxicated or Sedated No (0 pts) Impaired Gait No (0 pts) Mobility Assist Device Used No (0 pt) Altered Elimination No (0 pt) Score/Fall Risk Level 0 - 2 = Low Risk Maintained a safe environment, Provided non-skid footwear, Hourly rounding (assess needs \T\ fall precautionary measures) done. Abuse screen: Denies threats or abuse. Nutritional screening: No deficits noted. Tuberculosis screening: No symptoms or risk factors identified. Assessment: 13:20 General: Appears uncomfortable, ill, well groomed, well developed, well nourished, me1 Behavior is calm, cooperative, appropriate for age, Reports severe red tonsils and feels like there is an abscess on left side , symptoms X 2 days. Pain: Complains of pain in throat Pain does not radiate. Pain currently is 7 out of 10 on a pain scale. Quality of pain is described as sharp, Pain began gradually, 2-3 days ago. Is continuous. Neuro: Level of Consciousness is awake, alert, obeys commands, Oriented to person, place, time, situation, Appropriate for age. Cardiovascular: Capillary refill < 3 seconds Patient's skin is warm and dry. Respiratory: Airway is patent Respiratory effort is even, unlabored, Respiratory pattern is regular, symmetrical, Breath sounds are clear bilaterally. GI: No signs and/or symptoms were reported involving the gastrointestinal system. : No signs and/or symptoms were reported regarding the genitourinary system. EENT: Throat is reddened has enlarged tonsils. Derm: Skin is intact, is healthy with good turgor, Skin is pink, warm \T\ dry. Musculoskeletal: No signs and/or symptoms reported regarding the musculoskeletal system. Vital Signs: 13:09 BP 134 / 94; Pulse 75; Resp 16; Pulse Ox 99% on R/A; Weight 89.81 kg; Height 5 ft. 4 iw in. ; Pain 8/10; 14:30 BP 128 / 72; Pulse 59; Resp 18; Pulse Ox 100% on R/A; me1 14:41 BP 146 / 91; Pulse 71; Resp 18; Pulse Ox 100% on R/A; me1 15:00 BP 122 / 62; Pulse 68; Resp 16; Pulse Ox 99% on R/A; me1 13:09 Body Mass Index 33.99 (89.81 kg, 162.56 cm) iw 13:09 Pain Scale: Adult ED Course: 13:01 Patient arrived in ED. mr 13:02 Eddie Danielle MD is Attending Physician. sarah 13:10 Triage completed. iw 13:11 Arm band placed on. iw 13:20 Patient has correct armband on for positive identification. Bed in low position. Call me1 light in reach. Side rails up X 1. Provided Education on: POC. Verbalized understanding. . Client placed on continuous cardiac and pulse oximetry monitoring. NIBP monitoring applied. Pulse ox on. NIBP on. 13:20 No provider procedures requiring assistance completed. me1 13:24 Lenore Oconnor, IRENE is Primary Nurse. me1 13:36 Flu and/or RSV swab sent to lab. Strep swab sent to lab. me1 14:07 Soft Tissue Neck W/Contr In Process Unspecified. EDMS 14:07 Inserted saline lock: 20 gauge in left antecubital area, using aseptic technique. Blood kc6 collected. 14:07 PREGU Sent. kc6 14:07 Urinalysis w/ reflexes Sent. kc6 14:07 Comprehensive Metabolic Panel Sent. kc6 14:07 CBC with Diff Sent. kc6 14:59 Elyssa Thornton MD is Referral Physician. sarah 15:32 IV discontinued, intact, bleeding controlled, No redness/swelling at site. Pressure me1 dressing applied. Administered Medications: 13:36 Drug: AZITHromycin PO 500 mg PO once Route: PO; me1 15:33 Follow up: Response: No adverse reaction me1 14:34 Drug: NS 0.9% IV 1000 ml IV at 1 bolus Per protocol; 1000 mL bolus Route: IV; Rate: 1 me1 bolus; Site: left antecubital; 15:33 Follow up: IV Status: Completed infusion; IV Intake: 1000ml me1 14:34 Drug: Decadron - Dexamethasone IVP 10 mg IVP once Route: IVP; Site: left antecubital; me1 15:33 Follow up: Response: No adverse reaction me1 14:34 Drug: Rocephin IV 1 grams IV at per protocol once; Given slow IV push per pharmacy me1 instructions Route: IV; Rate: per protocol; Site: left antecubital; 15:33 Follow up: Response: No adverse reaction; IV Status: Completed infusion me1 Medication: 13:20 VIS not applicable for this client. me1 Intake: 15:33 IV: 1000ml; Total: 1000ml. me1 Outcome: 14:59 Discharge ordered by . sarah 15:32 Discharged to home ambulatory, me1 15:32 Condition: stable 15:32 Discharge instructions given to patient, Instructed on discharge instructions, follow up and referral plans. medication usage, Demonstrated understanding of instructions, follow-up care, medications, Prescriptions given X 2, 15:34 Patient left the ED. me1 Signatures: Dispatcher [employer] EDMS Eddie Danielle MD MD cha Rivera, Maria Isabel, Reg Reg mr Veronica Mcdermott RN RN iw Katrina Rae RN RN kc6 Lenore Oconnor RN RN me1 Corrections: (The following items were deleted from the chart) 14:38 13:09 Chief complaint: Patient states: sever red tonsils and feels like there is an me1 abscess on left side , symptoms X 2 days iw
--- NOTE | 2024-03-14 14:59 | EDPHYS ---
Physician Documentation [facility] Name: Genesis Hu Age: 33 yrs Sex: Female : 1990 Arrival Date: 03/14/2024 Time: 12:56 Bed 2 Private MD: ED Physician Eddie Danielle HPI: 03/14 13:48 This 33 yrs old Female presents to ER via Ambulatory with complaints of Sore sarah Throat. 13:48 The patient presents with sore throat. The patient describes throat pain as constant, sarah raw. Onset: The symptoms/episode began/occurred 3 day(s) ago. Severity of symptoms: At their worst the symptoms were mild, moderate, in the emergency department the symptoms are unchanged. Modifying factors: The symptoms are alleviated by nothing, the symptoms are aggravated by swallowing. Associated signs and symptoms: The patient has no apparent associated signs or symptoms. The patient has experienced similar episodes in the past, several times, issues with right tonsil. 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 - Infectious Disease History:: Denies. - Social history:: Smoking status: Patient denies any tobacco usage or history of. ROS: 13:50 Constitutional: Negative for fever, chills, and weight loss, Eyes: Negative for injury, sarah pain, redness, and discharge, Neck: Negative for injury, pain, and swelling, Cardiovascular: Negative for chest pain, palpitations, and edema, Respiratory: Negative for shortness of breath, cough, wheezing, and pleuritic chest pain, Abdomen/GI: Negative for abdominal pain, nausea, vomiting, diarrhea, and constipation, Back: Negative for injury and pain, : Negative for injury, bleeding, discharge, and swelling, MS/Extremity: Negative for injury and deformity, Skin: Negative for injury, rash, and discoloration, Neuro: Negative for headache, weakness, numbness, tingling, and seizure, Psych: Negative for depression, anxiety, suicide ideation, homicidal ideation, and hallucinations, Allergy/Immunology: Negative for hives, rash, and allergies, Endocrine: Negative for neck swelling, polydipsia, polyuria, polyphagia, and marked weight changes, Hematologic/Lymphatic: Negative for swollen nodes, abnormal bleeding, and unusual bruising, 13:50 ENT: Positive for sore throat, Exam: 13:50 Constitutional: This is a well developed, well nourished patient who is awake, alert, sarah and in no acute distress. Head/Face: Normocephalic, atraumatic. Eyes: Pupils equal round and reactive to light, extra-ocular motions intact. Lids and lashes normal. Conjunctiva and sclera are non-icteric and not injected. Cornea within normal limits. Periorbital areas with no swelling, redness, or edema. Neck: Trachea midline, no thyromegaly or masses palpated, and no cervical lymphadenopathy. Supple, full range of motion without nuchal rigidity, or vertebral point tenderness. No Meningismus. Chest/axilla: Normal chest wall appearance and motion. Nontender with no deformity. No lesions are appreciated. Cardiovascular: Regular rate and rhythm with a normal S1 and S2. No gallops, murmurs, or rubs. Normal PMI, no JVD. No pulse deficits. Respiratory: Lungs have equal breath sounds bilaterally, clear to auscultation and percussion. No rales, rhonchi or wheezes noted. No increased work of breathing, no retractions or nasal flaring. Abdomen/GI: Soft, non-tender, with normal bowel sounds. No distension or tympany. No guarding or rebound. No evidence of tenderness throughout. Back: No spinal tenderness. No costovertebral tenderness. Full range of motion. Skin: Warm, dry with normal turgor. Normal color with no rashes, no lesions, and no evidence of cellulitis. MS/ Extremity: Pulses equal, no cyanosis. Neurovascular intact. Full, normal range of motion. Neuro: Awake and alert, GCS 15, oriented to person, place, time, and situation. Cranial nerves II-XII grossly intact. Motor strength 5/5 in all extremities. Sensory grossly intact. Cerebellar exam normal. Normal gait. Psych: Awake, alert, with orientation to person, place and time. Behavior, mood, and affect are within normal limits. 13:50 ENT: TM's: are normal, Posterior pharynx: Airway: normal, no evidence of obstruction, Tonsils: are normal in appearance, enlarged on the right, enlarged on the left, bilaterally enlarged, with erythema, Uvula: normal, swelling, is not appreciated, erythema, that is mild, exudate, is not appreciated, peritonsillar mass, is not appreciated, pooling of secretions, is not appreciated, Vital Signs: 13:09 BP 134 / 94; Pulse 75; Resp 16; Pulse Ox 99% on R/A; Weight 89.81 kg; Height 5 ft. 4 iw in. ; Pain 8/10; 14:30 BP 128 / 72; Pulse 59; Resp 18; Pulse Ox 100% on R/A; me1 14:41 BP 146 / 91; Pulse 71; Resp 18; Pulse Ox 100% on R/A; me1 15:00 BP 122 / 62; Pulse 68; Resp 16; Pulse Ox 99% on R/A; me1 13:09 Body Mass Index 33.99 (89.81 kg, 162.56 cm) iw 13:09 Pain Scale: Adult iw MDM: 13:02 Patient medically screened. [facility] 13:50 Differential diagnosis: gingivostomatitis, group A strep tonsillitis, influenza, sarah laryngitis, belinda's angina, lymphoma, mononucleosis, peritonsillar abscess chlamydia pharyngitis, neisseria gonorrheoeae pharangitis, Mycoplasma Pharyngitis pharyngitis, tonsillitis, upper respiratory infection, viral syndrome. Data reviewed: vital signs, nurses notes, lab test result(s), radiologic studies, CT scan. Consideration of Admission/Observation Escalation of care including admission/observation considered. I considered the following discharge prescriptions or medication management in the emergency department Medications were administered in the Emergency Department. See MAR. Independent interpretation of the following test(s) in the Emergency Department CT Scan: My interpretation is ct soft tissue neck. Test considered but Not performed: MRI: no mri soft tissue. Historians other than the Patient: pt well informed. Care significantly affected by the following chronic conditions: anxiety, hh, ovarian cyst, pcos, pud. 03/14 13:47 Order name: SARS-COV-2 Antigen Rapid EDMS 03/14 13:47 Order name: Influenza Screen (A EDMS 03/14 13:47 Order name: Group A Streptococcus Rapid Sc EDMS 03/14 14:08 Order name: SARS-COV-2 Antigen Rapid; Complete Time: 14:58 EDMS 03/14 14:10 Order name: Group A Streptococcus Rapid Sc; Complete Time: 14:58 EDMS 03/14 14:11 Order name: Throat Culture; Complete Time: 14:58 EDMS 03/14 14:25 Order name: Influenza Screen (A ; Complete Time: 14:58 EDMS 03/14 14:27 Order name: Throat Culture EDMS 03/14 14:48 Order name: Comprehensive Metabolic Panel EDMS 03/14 14:48 Order name: Bilirubin Direct EDMS 03/14 14:48 Order name: CBC with Automated Diff EDMS 03/14 14:48 Order name: Urinalysis w/ reflexes EDMS 03/14 14:48 Order name: Test, Urine EDMS 03/14 14:55 Order name: Test, Urine; Complete Time: 14:58 EDMS 03/14 14:58 Order name: Urinalysis w/ reflexes EDMS 03/14 15:14 Order name: Comprehensive Metabolic Panel EDMS 03/14 15:14 Order name: Bilirubin Direct EDMS 03/14 15:21 Order name: CBC with Automated Diff EDMS 03/14 15:21 Order name: CBC Smear Scan EDMS 03/14 15:22 Order name: CBC Smear Scan EDMS 03/14 13:53 Order name: Soft Tissue Neck W/Contr EDMS 03/14 14:25 Order name: CT; Complete Time: 14:58 EDMS Administered Medications: 13:36 Drug: AZITHromycin PO 500 mg PO once Route: PO; me1 15:33 Follow up: Response: No adverse reaction me1 14:34 Drug: NS 0.9% IV 1000 ml IV at 1 bolus Per protocol; 1000 mL bolus Route: IV; Rate: 1 me1 bolus; Site: left antecubital; 15:33 Follow up: IV Status: Completed infusion; IV Intake: 1000ml me1 14:34 Drug: Decadron - Dexamethasone IVP 10 mg IVP once Route: IVP; Site: left antecubital; me1 15:33 Follow up: Response: No adverse reaction me1 14:34 Drug: Rocephin IV 1 grams IV at per protocol once; Given slow IV push per pharmacy me1 instructions Route: IV; Rate: per protocol; Site: left antecubital; 15:33 Follow up: Response: No adverse reaction; IV Status: Completed infusion me1 Disposition Summary: 03/14/24 14:59 Discharge Ordered Notes: Location: Home sarah Problem: new sarah Symptoms: have improved sarah Condition: Stable sarah Diagnosis - Acute pharyngitis, unspecified sarah - Acute tonsillitis, unspecified - peritonsillitis sarah Followup: sarah - With: Private Physician - When: 2 - 3 days - Reason: Recheck today's complaints, Continuance of care, Re-evaluation by your physician Followup: sarah - With: Elyssa Thornton MD - When: 1 - 2 days - Reason: Recheck today's complaints, Re-evaluation by your physician Discharge Instructions: - Discharge Summary Sheet sarah - Pharyngitis sarah - Sore Throat sarah - Tonsillitis sarah - Tonsillitis, [id number] sarah - Pharyngitis, [id number] sarah - Peritonsillar Cellulitis sarah - Sore Throat, [id number] sarah Forms: - Medication Reconciliation Form sarah - Antibiotic Education sarah - Prescription Opioid Use sarah - Patient Portal Instructions [facility] - Leadership Thank You Letter [facility] Prescriptions: - dexamethasone 4 mg Oral tablet - take 1 tablet ORAL route daily; 4 tablet; Refills: 0, Product Selection [facility] Permitted - Clindamycin HCl 300 mg Oral Capsule - take 1 capsule ORAL route every 6 hours for 10 days; 40 capsule; Refills: 0, [facility] Product Selection Permitted Signatures: 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 EDMS EDMS 13:03 13:03 Influenza Screen (A \T\ B)+BA.LAB.BRZ ordered. EDMS EDMS 13:03 13:03 SARS-COV-2 Antigen Rapid+I.LAB.BRZ ordered. EDMS EDMS
[2024-03-14 15:10] LABS: ALT/SGPT 19 U/L (13-56); Albumin 4.1 g/dL (3.4-5.0); Albumin/Globulin Ratio 1.2 (1.1-1.8); Alkaline Phosphatase 33 U/L (45-117); Anion Gap 8.8 mEq/L (5.0-15.0); BUN Blood Urea Nitrogen 11 mg/dL (7-18); Bicarbonate 25 mEq/L (21-32); Bilirubin Direct 0.2 mg/dL (0-0.2); Bilirubin Total 0.6 mg/dL (0.2-1.0); Globulin 3.4 g/dL (2.3-3.5); Glomerular Filtration Rate 103 ml/min (=/>90); Glucose Level 79 mg/dL (74-106); Potassium 3.8 mEq/L (3.5-5.1); Protein, Total 7.5 g/dL (6.4-8.2); Sodium Level 136 mEq/L (136-145)
[2024-03-14 15:13] LABS: AST/SGOT < 10 U/L (15-37)
[2024-03-14 15:20] LABS: Blood Morphology Comment NOTED (NOT SEEN); Hypochromasia 2+; Microcytosis 1+; Platelet Estimate ADEQ; White Blood Cell Scan OK (OK)
[2024-03-14 19:09] VITALS: BP 122/62; O2SAT 99
== END 2024-03-14 15:34 | disposition home or self-care (01) ==
LOC: ER 12:56
DX: J03.90 Acute tonsillitis, unspecified (principal); Z11.52 Encounter for screening for COVID-19; Z88.0 Allergy status to penicillin; Z88.1 Allergy status to other antibiotic agents; Z88.8 Allergy status to other drugs, medicaments and biological substances; Z91.030 Bee allergy status; Z91.048 Other nonmedicinal substance allergy status
CPT/HCPCS: 96365; 87070; 85025; 81001; 36415; 81025; 87081; 82248; 80053; 87804 ×2; 70491; 96375; 99284; 87811; Q9967; J1100; J7030; J0696

== ENCOUNTER 2024-04-12 07:12 | Emergency (ER) | payer OTHER, SELFPAY ==
--- OUTSIDE RECORDS SUMMARY | 2024-04-12 07:17 | XMS REPORT | Continuity of Care Document ---
Author Name Unknown Address [address] [facility] [address] [place] [address] [facility] thconnect Address [address] [place] [address] Care Team Providers Care Hand Sizer Name Role Phone PCP, PATIENT DOES NOT HAVE A Primary Care Physic anson Unavailable MONICA PECK Attending Clinician UnavailMonica Tanner MD Attending Clinician [phone] SRIDHAR MATA Attending Clinician Unavailable Sridhar Mata DO Attending Clinician [phone] JESSICA BALLARD Attending Clinician Unavailable Jessica Ballard MD Attending Clinician [phone] WILLIAM ASCENCIO Attending Clinician Unavailable William Garcia Attending Clinician [phone] Kyra MEDEIROS Attending Clinician Unavailable Kyra Sweeney Attending Clinician [phone] LIBIA BO Attending Clinician Unavailable Libia Bo NP Attending Clinician GALEN JAYY Marcial Attending Clinician Unavailable Galen PACJayy S Attending Clinician [phone] LATHA WINSTON Attending Clinician Unavailab Latha Weiss DO Attending Clinician [phone] Jack Brower MD Attending Clinician [phone] JACK BROWER Attending Clinician Unavailable Anjali Merida PA-C Attending Clinician [phone] ANJALI MERIDA Attending Clinician Unavailable Doctor Unassigned, [place] Attending Clinician U caitlin Valle MD, Jose David Suarez Attending Clinician [phone] JESSICA BALLARD Admitting Clinician Unavailable Kyra MEDEIROS Admitting Clinician Unavailable Payers Payer Name Policy Type Policy Number Effective Date Expirati on Date Source FRANCISCO J ePaisa - Payments Anytime | Anywhere [facility] [id number] 2023 00:00:00 [employer]WORK [id number] 2022 00:00:00 MEDICAID PENDING PENDING 2021 00:00:00 Problems Condition Name Condition Details Condition Category Status Onset Date Resolution Date Last Treatment Date Treating Clinician Comments Source Abdominal pain Abdominal pain Disease Active 07-28 00:00: 00 Overview: Formattin g of this note might be different from the original. ICD10 Diagnosis Term [employer] Utility [facility] Abnormal glucose tolerance test Abnormal glucose tolerance test Disease Active 07-06 00:00: 00 Overview: Formattin g of this note might be different from the original. 1 hr- 47 [facility] Immune to varicella Immune to varicella Disease Active 07-05 00:00: 00 [facility] High-risk High-risk Disease Active 06-30 00:00: 00 Overview: Formattin g of this note might be different from the original. Medical records received. [facility]. DOS- 0. CC: 30 weeks w/ twins, vomiting black liquid. No evidence of hepatitis , pancreati tis, or liver dysfuncti on. Physiolog ic anemia. No UTI or ketonuria . ICD10 Diagnosis Term [employer] Utility [facility] History of History of Disease Active 06-30 00:00: 00 Overview: Formattin g of this note might be different from the original. Medical records- 0- IUP at 33 weeks. Dichorion ic, diamnioti c twin gestation . presentat ion Vertex and transvers e. PTL. Primary low transvers e via Pfannenst iel incision. Right dermoid cystectom y. [facility] Bipolar disorder Bipolar disorder Disease Active 06-30 00:00: 00 [facility] Family history of congenital anomalies Family history of congenital anomalies Disease Active 06-30 00:00: 00 Overview: Formattin g of this note might be different from the original. Detailed US and Genetics. Mother born with spinal bifida ocarta and hole in the heart and born with heart murmur [facility] History of labor History of labor Disease Active 06-30 00:00: 00 Overview: Formattin g of this note might be different from the original. Delivered at 28 week via for PTL -Twins. Send to [facility] at 16 weeks [facility] Pain pelvic Pain pelvic Disease Active 06-30 00:00: 00 [facility] Rubella immune Rubella immune Disease Active 06-30 00:00: 00 [facility] Allergies, Adverse Reactions, Alerts Allergy Name Allergy Type Status Severity Reaction(s) Onset Date Inactive Date Treating Clinician Comments Source LATEX DRUG INGREDI Active ITCHING 05-09 00:00: 00 [facility] NUDIT BLEACH DRUG Active Swelling 05-09 00:00: 00 [facility] Latex Propensi ty to adverse reaction s Active Itching 05-09 00:00: 00 [facility] Nudit Bleach Propensi ty to adverse reaction s Active Swelling 05-09 00:00: 00 [facility] AMOXICIL DAVY DRUG INGREDI Active Anaphylaxis 01-09 00:00: 00 [facility] Amoxicil davy Propensi ty to adverse reaction s Active Anaphylaxis 01-09 00:00: 00 [facility] PENICILL IN DRUG INGREDI Active Anaphylaxis 2015-11 00:00: 00 [facility] Penicill in Propensi ty to adverse reaction s Active Anaphylaxis 2015-11 00:00: 00 [facility] BEE POLLEN DRUG INGREDI Active Unknown-Cmnt 12-01 00:00: 00 [facility] Bee Pollen Propensi ty to adverse reaction s Active Unknown - See comments 12-01 00:00: 00 [facility] Social History Social Habit Start Date Stop Date Quantity Comments Source [facility] of Social function 2023-12-24 00:00:00 2023-12-24 00:00:00 [facility] Alcohol intake 2023-12-24 00:00:00 2023-12-24 00:00:00 Current non-drinker of alcohol (finding) [facility] Exposure to SARS-CoV-2 (event) 2023-02-17 00:00:00 2023-02-27 09:35:00 Not sure [facility] Tobacco use and exposure 2013-06-30 00:00:00 2013-06-30 00:00:00 Smokeless tobacco non-user [facility] Sex Assigned At 1990 00:00:00 1990 00:00:00 [facility] Smoking Status Start Date Stop Date Source Never smoked tobacco [facility] Medications Ordered Medication Name Filled Medication Name Start Date Stop Date Current Medication? Ordering Clinician Indication Dosage Frequency Signature (SIG) Comments Components Source dexamethaso ne (DECADRON PHOSPHATE) injection 10 mg 12-22 16:30: 00 12-22 15:21 :00 No 10mg 10 mg, Oral, ONCE, 1 dose, On Wed12/22/23 at 1030, Routine [facility] clindamycin 300 mg capsule 2024-0 2-14 00:00: 00 12-26 05:59 :00 No [id number] 300mg Take 1 capsule by mouth 4 (four) times daily for 10 days. [facility] benzonatate 200 mg capsule 07-28 00:00: 00 Yes [id number] 200mg Take 1 capsule by mouth 3 (three) times daily as needed for Cough. [facility] fluticasone propionate 50 mcg/actuati on nasal spray 07-28 00:00: 00 Yes [id number] 2{spray } Use 2 Sprays in each nostril in the morning. [facility] iopamidol (ISOVUE 370-500 mL) injection 75 mL 04-30 01:15: 00 04-30 01:15 :00 No [id number] 75mL 75 mL, Intravenou s, ONCE, 1 dose, On Wed04/29/23 at 2015, Routine [facility] maalox:diph enhydrAMINE :lidocaine 2 % viscous 1:1:1 (FIRST-MOUT HWASH BLM) oral suspension 15 mL 04-30 00:45: 00 04-30 00:38 :00 No 15mL 15 mL, Oral (Swish & Swallow), ONCE, 1 dose, On Wed04/29/23 at 1945, Routine [facility] famotidine (PEPCID (PF)) injection 20 mg 04-29 23:45: 00 04-30 00:39 :00 No 20mg 20 mg, Slow IV Push, ONCE, 1 dose, On Wed04/29/23 at 1845, MARIELA [facility] levETIRAcet am (KEPPRA) in NACL (ISO-OS) 1,000 mg/100 mL RTU 01-26 00:30: 00 01-25 23:56 :00 No 1000mg 1,000 mg, IV Piggyback, ONCE, 1 dose, On Wed01/25/23 at 1930, Administer over 15 Minutes, 100 mL [facility] acetaminoph en (TYLENOL) tablet 975 mg 01-26 00:30: 00 01-25 23:42 :00 No 975mg 975 mg, Oral, ONCE, 1 dose, On 01/25/23 at 1930, MARIELA [facility] levETIRAcet am (KEPPRA) 500 mg tablet 01-25 00:00: 00 Yes [id number] 500mg Take 1 tablet by mouth in the morning and 1 tablet in the evening. [facility] dicyclomine (BENTYL) injection 20 mg 05-10 04:15: 00 05-10 03:38 :00 No 20mg 20 mg, Intramuscu lar, ONCE, 1 dose, On 05/09/22 at 2315, Routine [facility] dicyclomine 20 mg tablet 05-10 00:00: 00 Yes [id number] 20mg Take 1 tablet by mouth 4 (four) times daily as needed for Abdominal pain. [facility] ferrous sulfate/vit C/folic ac (FERROUS SULFATE-C-F OLIC ACID ORAL) 05-09 23:56: 54 05-09 00:00 :00 No 1{tbl} Take 1 tablet by mouth daily. [facility] dicyclomine 20 mg tablet 05-09 00:00: 00 05-10 00:00 :00 No [id number] 20mg Take 1 tablet by mouth 4 (four) times daily as needed for Abdominal pain. [facility] clarithromy dominique 500 mg tablet 12-24 00:00: 00 Yes [id number] 500mg Take 1 tablet by mouth every 12 (twelve) hours. [facility] pantoprazol e 40 mg EC tablet 12-24 00:00: 00 Yes [id number] 40mg Take 1 tablet by mouth daily. [facility] metroNIDAZO LE 500 mg tablet 12-24 00:00: 00 01-08 05:59 :00 No [id number] 500mg Take 1 tablet by mouth every 8 (eight) hours for 14 days. [facility] sucralfate 1 gram tablet 12-24 00:00: 00 12-24 00:00 :00 No [id number] 1g Take 1 tablet by mouth before meals and at bedtime. [facility] maalox:diph enhydrAMINE :lidocaine 2 % viscous 1:1:1 (FIRST-MOUT HWASH BLM) oral suspension 15 mL 12-08 21:30: 00 12-08 20:30 :00 No 15mL 15 mL, Oral, ONCE, 1 dose, On Wed12/08/21 at 1530, Routine [facility] sucralfate 1 gram tablet 12-08 00:00: 00 Yes [id number] 1g Take 1 tablet by mouth before meals and at bedtime. [facility] ondansetron 4 mg disintegrat ing tablet 12-08 00:00: 00 Yes [id number] 4mg Take 1 tablet by mouth every 8 (eight) hours as needed for Nausea and Vomiting (N/V). [facility] dicyclomine (BENTYL) 10 mg capsule 12-08 00:00: 00 05-09 00:00 :00 No [id number] 10mg Take 1 capsule by mouth every 8 (eight) hours as needed for Abdominal pain. [facility] omeprazole 20 mg capsule 12-08 00:00: 00 01-08 05:59 :00 No [id number] 20mg Take 1 capsule by mouth daily for 30 days. [facility] bismuth-met ronidazole- tetracyclin e 140-125-125 mg per capsule 12-08 00:00: 00 12-23 05:59 :00 No [id number] 3{capsu le} Take 3 capsules by mouth before meals and at bedtime for 14 days. [facility] pantoprazol e (PROTONIX) 40 mg EC tablet 2020-11 00:00: 00 12-24 00:00 :00 No [id number] 40mg Take 1 tablet by mouth daily. [facility] sucralfate 1 gram tablet 2020-11 00:00: 00 11-13 05:59 :00 No [id number] 1g Take 1 tablet by mouth before meals and at bedtime for 30 days. [facility] dicyclomine (BENTYL) capsule 10 mg 2020-11 18:00: 00 Yes 10mg 10 mg, Oral, QID, First dose on Wed09/23/21 at 1200, Until Discontinu ed, Routine [facility] sucralfate (CARAFATE) tablet 1 g 2020-11 17:30: 00 Yes 1g 1 g, Oral, AC+HS, First dose on Wed09/23/21 at 1130, Until Discontinu ed, Routine [facility] pantoprazol e (PROTONIX) injection 40 mg 2020-11 15:45: 00 09-23 15:00 :00 No 40mg 40 mg, Slow IV Push, ONCE, 1 dose, On Wed09/23/21 at 0945 [facility] dicyclomine (BENTYL) 10 mg capsule 2020-11 00:00: 00 Yes [id number] 10mg Take 1 capsule by mouth every 8 (eight) hours as needed for Abdominal pain. [facility] ondansetron 4 mg disintegrat ing tablet 2020-11 00:00: 00 Yes [id number] 4mg Take 1 tablet by mouth every 8 (eight) hours as needed for Nausea and Vomiting (N/V). [facility] sucralfate 1 gram tablet 2020-11 00:00: 00 10-13 00:00 :00 No [id number] 1g Take 1 tablet by mouth before meals and at bedtime. [facility] pantoprazol e (PROTONIX) 40 mg EC tablet 2020-11 00:00: 00 10-13 00:00 :00 No [id number] 40mg Take 1 tablet by mouth daily. [facility] ciprofloxac in HCl 500 mg tablet 11-25 00:00: 00 10-13 00:00 :00 No [id number] 500mg Take 1 tablet by mouth 2 (two) times daily. [facility] ondansetron (ZOFRAN ODT) 4 mg disintegrat ing tablet 11-25 00:00: 00 09-23 00:00 :00 No [id number] 4mg Take 1 tablet by mouth every 8 (eight) hours as needed for Nausea and Vomiting (N/V). [facility] cyclobenzap rine 10 mg tablet 2019-11 00:00: 00 Yes [id number] 10mg Take 1 tablet by mouth 3 (three) times daily. [facility] ibuprofen 600 mg tablet 2019-11 00:00: 00 10-13 00:00 :00 No [id number] 600mg Take 1 tablet by mouth every 6 (six) hours as needed for Pain (scale 4-6). [facility] ferrous sulfate/vit C/folic ac (FERROUS SULFATE-C-F OLIC ACID ORAL) 4 17:08: 08 Yes 1{tbl} Take 1 tablet by mouth daily. [facility] bromphenira mine-pseudo ephedrine-D M (BROMFED DM) 2-30-10 mg/5 mL syrup 4-04 00:00: 00 05-09 00:00 :00 No [id number] 5mL Take 5 mL by mouth 4 (four) times daily as needed for Congestion /Allergies or Cough. [facility] methylPREDN ISolone 4 mg tablets 02-02 00:00: 10-13 00:00 :00 No [id number] Take by mouth SEE-INSTRU CTIONS. follow package directions [facility] levoFLOXaci n (LEVAQUIN) 500 mg tablet 4-04 00:00: 00 10-13 00:00 :00 No [id number] 500mg Take 1 tablet by mouth every 24 (twenty-fo ur) hours. [facility] Immunizations Ordered Immunization Name Filled Immunization Name Date Status Comments Source Td 2016-04-30 00:00:00 Completed [facility] Td 2016-04-30 00:00:00 Completed [facility] Td 2016-04-30 00:00:00 Completed [facility] Td 2016-04-30 00:00:[address] [facility] TD, NOS 2016-04-30 00:00:[address] [facility] TD, NOS 2016-04-30 00:00:[address] [facility] TD, NOS 2016-04-30 00:00:00 Completed [facility] Td 2016-04-30 00:00:00 Completed [facility] Rubella 2010-04-22 00:00:00 Completed [facility] Rubella 2010-04-22 00:00:00 Completed [facility] Rubella 2010-04-22 00:00:00 Completed [facility] Rubella 2010-04-22 00:00:00 Completed [facility] Rubella 2010-04-22 00:00:00 Completed [facility] Rubella 2010-04-22 00:00:00 Completed [facility] Rubella 2010-04-22 00:00:00 Completed [facility] Rubella 2010-04-22 00:00:00 Completed [facility] Td 2006-06-30 00:00:00 Completed [facility] Td 2006-06-30 00:00:00 Completed [facility] Td 2006-06-30 00:00:00 Completed [facility] Td 2006-06-30 00:00:[address] [facility] TD, NOS 2006-06-30 00:00:[address] [facility] TD, NOS 2006-06-30 00:00:[address] [facility] TD, NOS 2006-06-30 00:00:[address] [facility] Td 2006-06-30 00:00:[address] [facility] Rubella Unknown Completed [facility] TD, NOS Unknown Completed [facility] TD, NOS Unknown Completed [facility] Rubella Unknown Completed [facility] TD, NOS Unknown Completed [facility] TD, NOS Unknown Completed [facility] Rubella Unknown Completed [facility] TD, NOS Unknown Completed [facility] TD, NOS Unknown Completed [facility] Rubella Unknown Completed [facility] TD, NOS Unknown Completed [facility] TD, NOS Unknown Completed [facility] Rubella Unknown Completed [facility] TD, NOS Unknown Completed [facility] TD, NOS Unknown Completed [facility] Vital Signs Vital Name Observation Time Observation Value Comments Marcial koo Body weight 2023-12-24 15:32:00 95.255 kg [facility] BMI 2023-12-24 15:32:00 34.95 kg/m2 [facility] Systolic blood pressure 2023-12-22 13:44:00 140 mm[Hg] [facility] Diastolic blood pressure 2023-12-22 13:44:00 77 mm[Hg] [facility] Heart rate 2023-12-22 13:44:00 84 /min Un[facility] Body temperature 2023-12-22 13:44:00 36.89 [place] [facility] Respiratory rate 2023-12-22 13:44:00 16 /min [facility] Body height 2023-12-22 13:44:00 165.1 cm Univ [facility] Body weight 2023-12-22 13:44:00 95.255 kg [facility] BMI 2023-12-22 13:44:00 34.95 kg/m2 [facility] Oxygen saturation in Arterial blood by Pulse oximetry 2023-12-22 13:44:00 100 /min [facility] Systolic blood pressure 2023-12-16 04:30:00 131 mm[Hg] [facility] Diastolic blood pressure 2023-12-16 04:30:00 86 mm[Hg] [facility] Heart rate 2023-12-16 04:30:00 84 /min Un[facility] Body temperature 2023-12-16 04:30:00 36.72 [place] [facility] Respiratory rate 2023-12-16 04:30:00 16 /min [facility] Oxygen saturation in Arterial blood by Pulse oximetry 2023-12-16 04:30:00 100 /min [facility] Body height 2023-12-16 02:14:00 165.1 cm [facility] Body weight 2023-12-16 02:14:00 95.255 kg [facility] BMI 2023-12-16 02:14:00 34[facility]95 [facility] 2023-07-28 14:01:54 128 mm[Hg] [facility] Diastolic blood pressure 2023-07-28 14:01:54 85 mm[Hg] [facility] Heart rate 2023-07-28 14:01:54 75 /min [facility] Body temperature 2023-07-28 14:01:54 36.78 [place] [facility] Respiratory rate 2023-07-28 14:01:54 16 /min [facility] Body height 2023-07-28 13:52:00 165.1 cm [facility] Body weight 2023-07-28 13:52:00 96.616 kg [facility] BMI 2023-07-28 13:52:00 35.45 kg/m2 [facility] Oxygen saturation in Arterial blood by Pulse oximetry 2023-07-28 13:52:00 100 /min [facility] Systolic blood pressure 2023-04-30 01:00:00 146 mm[Hg] [facility] Diastolic blood pressure 2023-04-30 01:00:00 78 mm[Hg] [facility] Heart rate 2023-04-30 01:00:00 60 [facility] Oxygen saturation in Arterial blood by Pulse oximetry 2023-04-30 01:00:00 100 /min [facility] Body temperature 2023-04-30 00:36:00 37.33 [place] [facility] Respiratory rate 2023-04-30 00:36:00 16 /min [facility] Body height 2023-04-29 21:27:00 [facility] 2023-04-29 21:27:00 99.791 kg [facility] BMI 2023-04-29 21:27:00 36.61 kg/m2 [facility] Systolic blood pressure 2023-02-27 15:24:59 144 mm[Hg] [facility] Diastolic blood pressure 2023-02-27 15:24:59 92 mm[Hg] [facility] Heart rate 2023-02-27 15:24:59 87 /min [facility] Body temperature 2023-02-27 15:24:59 36.61 [place] [facility] Respiratory rate 2023-02-27 15:24:59 16 /min [facility] Body height 2023-02-27 14:40:00 165.1 cm [facility] Body weight 2023-02-27 14:40:00 99.565 kg [facility] BMI 2023-02-27 14:40:00 36.53 kg/m2 [facility] Oxygen saturation in Arterial blood by Pulse oximetry 2023-02-27 14:40:00 98 /min [facility] Systolic blood pressure 2023-01-26 00:30:00 130 mm[Hg] [facility] Diastolic blood pressure 2023-01-26 00:30:00 78 mm[Hg] [facility] Heart rate 2023-01-26 00:30:00 73 /min [facility] Respiratory rate 2023-01-26 00:30:00 16 /min [facility] Oxygen saturation in Arterial blood by Pulse oximetry 2023-01-26 00:30:00 99 /min [facility] Body temperature 2023-01-25 21:24:00 37 [place] [facility] Body weight 2023-01-25 21:24:00 99.791 kg [facility] BMI 2023-01-25 21:24:00 35.51 kg/m2 [facility] Systolic blood pressure 2022-05-10 05:14:00 125 mm[Hg] [facility] Diastolic blood pressure 2022-05-10 05:14:00 81 mm[Hg] [facility] Heart rate 2022-05-10 05:14:00 62 /min [facility] Respiratory rate 2022-05-10 05:14:00 17 /min [facility] Oxygen saturation in Arterial blood by Pulse oximetry 2022-05-10 05:14:00 99 /min [facility] Body temperature 2022-05-10 02:44:00 36.44 [place] [facility] Body height 2022-05-10 02:44:00 167.6 cm [facility] Body weight 2022-05-10 02:44:00 103.828 kg [facility] BMI 2022-05-10 02:44:00 36.95 kg/m2 [facility] Systolic blood pressure 2021-12-24 17:26:00 147 mm[Hg] [facility] Diastolic blood pressure 2021-12-24 17:26:00 80 mm[Hg] [facility] Heart rate 2021-12-24 17:26:00 71 /min [facility] Body temperature 2021-12-24 17:26:00 36.17 [place] [facility] Respiratory rate 2021-12-24 17:26:00 18 /min [facility] Body weight 2021-12-24 17:26:00 86.183 kg [facility] BMI 2021-12-24 17:26:00 29.76 kg/m2 [facility] Oxygen saturation in Arterial blood by Pulse oximetry 2021-12-24 17:26:00 99 /min [facility] Systolic blood pressure 2021-12-08 18:45:00 131 mm[Hg] [facility] Diastolic blood pressure 2021-12-08 18:45:00 91 mm[Hg] [facility] Heart rate 2021-12-08 18:45:00 86 [facility] Body temperature 2021-12-08 18:45:00 36.72 [place] [facility] Respiratory rate 2021-12-08 18:45:00 18 /min [facility] Body weight 2021-12-08 18:45:00 86.183 kg [facility] BMI 2021-12-08 18:45:00 29.76 kg/m2 [facility] Oxygen saturation in Arterial blood by Pulse oximetry 2021-12-08 18:45:00 98 /min [facility] Systolic blood pressure 2021-10-13 13:42:00 123 mm[Hg] [facility] Diastolic blood pressure 2021-10-13 13:42:00 78 mm[Hg] [facility] Heart rate 2021-10-13 13:42:00 86 /min [facility] Body temperature 2021-10-13 13:42:00 36.78 [place] [facility] Respiratory rate 2021-10-13 13:42:00 18 /min [facility] Body weight 2021-10-13 13:42:00 86.183 kg [facility] BMI 2021-10-13 13:42:00 29.76 kg/m2 [facility] Oxygen saturation in Arterial blood by Pulse oximetry 2021-10-13 13:42:00 98 /min [facility] Systolic blood pressure 2021-09-23 16:00:00 128 mm[Hg] [facility] Diastolic blood pressure 2021-09-23 16:00:00 79 mm[Hg] [facility] Heart rate 2021-09-23 16:00:00 79 /min [facility] Body temperature 2021-09-23 16:00:00 36.72 [place] [facility] Oxygen saturation in Arterial blood by Pulse oximetry 2021-09-23 16:00:00 100 /min [facility] Respiratory rate 2021-09-23 14:25:00 18 /min [facility] Body height 2021-09-23 14:25:00 170.2 cm [facility] Body weight 2021-09-23 14:25:00 86.183 kg [facility] BMI 2021-09-23 14:25:00 29.76 kg/m2 [facility] Procedures Procedure Date / Time Performed Performing Clinician Source ASSIGNMENT OF BENEFITS 2023-12-22 14:35:54 Docto r Unassigned, [place] [facility] RAPID STREP SCREEN FOR GROUP A 2023-12-22 13:47:00 Sridhar Mata [facility] RAPID INFLUENZA A/B 2023-12-22 13:47:00 Omari Mata [facility] COVID-19 (ID NOW RAPID TESTING) 2023-12-22 13:47:00 Singer Sridhar [facility] CONSENT/REFUSAL FOR DIAGNOSIS AND TREATMENT 2023-12-22 13:39:22 Doctor Unassigned, [place] [facility] ASSIGNMENT OF BENEFITS 2023-12-16 03:08:00 Docto r Unassigned, [place] [facility] POCT TEST 2023-12-16 03:04:00 Andi Ballard [facility] URINALYSIS 2023-12-16 02:39:[address] [facility] RAPID STREP SCREEN FOR GROUP A 2023-12-16 02:39:00 Jessica Ballard [facility] CONSENT/REFUSAL FOR DIAGNOSIS AND TREATMENT 2023-12-16 02:05:58 Doctor Unassigned, [place] [facility] RAPID STREP SCREEN FOR GROUP A 2023-07-28 14:04:00 William Ascencio [facility] NOTICE OF PRIVACY PRACTICES 2023-07-28 13:45:24 Doctor Unassigned, [place] [facility] CONSENT/REFUSAL FOR DIAGNOSIS AND TREATMENT 2023-07-28 13:43:24 Doctor Unassigned, [place] [facility] POCT TEST 2023-04-30 00:37:00 Kyra Medeiros [facility] ASSIGNMENT OF BENEFITS 2023-04-29 23:20:32 Docto r Unassigned, [place] [facility] LIPASE 2023-04-29 23:10:00 Kyra Medeiros [facility] MAGNESIUM 2023-04-29 23:10:00 Kyra Medeiros [facility] COMP. METABOLIC PANEL (04730) 2023-04-29 23:10:00 Kyra Medeiros [facility] CBC WITH DIFF 2023-04-29 23:10:00 [facility]23-04-29 23:10:00 Kyra Medeirose [facility] US GALL BLADDER 2023-04-29 22:56:04 Kyra Medeiros Un [facility] CONSENT/REFUSAL FOR DIAGNOSIS AND TREATMENT 2023-04-29 21:14:56 Doctor Unassigned, [place] [facility] CONSENT/REFUSAL FOR DIAGNOSIS AND TREATMENT 2023-02-27 14:29:44 Doctor Unassigned, [place] [facility] COMP. METABOLIC PANEL ([id number]) 2023-01-25 22:42:00 Jessica Ballard [facility] ETHANOL 2023-01-25 22:42:00 Jessica Ballard [facility] CBC WITH DIFF 2023-01-25 22:42:00 Jessica Ballard [facility] URINALYSIS 2023-01-25 22:42:00 Jessica Ballard [facility] LACTIC ACID WHOLE BLOOD 2023-01-25 22:42:00 Do desean Ballard [facility] URINE DRUG (IMMUNOASSAY) - COMPREHENSIVE DRUG SCREEN W/O REFLEX 2023-01-25 22:42:00 Jessica Ballard [facility] POCT TEST 2023-01-25 22:26:00 Andi Ballard [facility] CONSENT/REFUSAL FOR DIAGNOSIS AND TREATMENT 2023-01-25 21:10:53 Doctor Unassigned, [place] [facility] LIPASE 2022-05-10 03:37:00 Libia Bo [facility] COMP. METABOLIC PANEL (10745) 2022-05-10 03:37:00 Libia Bo [facility] CBC WITH DIFF 2022-05-10 03:37:00 Libia Bo [facility] POCT TEST 2022-05-10 02:49:00 Libia Bo [facility] URINALYSIS 2022-05-10 02:48:00 Libia Bo [facility] NOTICE OF PRIVACY PRACTICES 2022-05-10 02:33:25 Doctor Unassigned, [place] [facility] CONSENT/REFUSAL FOR DIAGNOSIS AND TREATMENT 2022-05-10 02:31:34 Doctor Unassigned, [place] [facility] CONSENT/REFUSAL FOR DIAGNOSIS AND TREATMENT 2021-12-24 17:15:06 Doctor Unassigned, [place] [facility] NOTICE OF PRIVACY PRACTICES 2021-12-08 18:35:32 Doctor Unassigned, [place] [facility] CONSENT/REFUSAL FOR DIAGNOSIS AND TREATMENT 2021-12-08 18:35:08 Doctor Unassigned, [place] [facility] ASSIGNMENT OF BENEFITS 2021-10-13 13:51:35 Docto r Unassigned, [place] [facility] CONSENT/REFUSAL FOR DIAGNOSIS AND TREATMENT 2021-10-13 13:36:21 Doctor Unassigned, [place] [facility] COMP. METABOLIC PANEL (97129) 2021-09-23 15:35:00 Sridhar Mata [facility] LIPASE 2021-09-23 14:59:00 Sridhar Mata [facility] CBC WITH DIFF 2021-09-23 14:59:00 Sridhar Mata [facility] CONSENT/REFUSAL FOR DIAGNOSIS AND TREATMENT 2021-09-23 14:17:56 Doctor Unassigned, [place] [facility] Encounters Start Date/Time End Date/Time Encounter Type Admission Type Attending [facility] Emergency Department Facility Care Department Encounter ID Source 2023-12-31 09:30:00 2023-12-31 09:30:00 Outpatient R MONICA PECK [facility] [id number] [facility] 2023-12-24 09:15:00 2023-12-24 10:53:52 Outpatient R MONICA PECK [facility] [id number] [facility] 2023-12-24 09:15:00 2023-12-24 10:53:52 Office Visit Monica Peck [facility] ..840.114 350.1.13.10 4.2.7.2.686 [id number] [facility] 2023-12-22 07:49:00 2023-12-22 10:01:00 Emergency X SRIDHAR MATA [facility] ERT [id number] [facility] 2023-12-22 07:49:00 2023-12-22 10:01:00 Emergency Sridhar Mata [facility] 1.2840.114 350.1.13.10 4.2.7.2.686 [id number] [id number] [facility] 2023-12-15 20:20:00 2023-12-15 22:37:00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
--- NOTE | 2024-04-12 08:02 | RAD REPORT ---
EXAM DESCRIPTION: RAD - Foot Left 3 View - 04/12/2024 7:53 am CLINICAL HISTORY: PAIN COMPARISON: No comparisons FINDINGS: No fracture or dislocation is seen. Small calcaneal spurs are present.
--- NOTE | 2024-04-12 08:07 | EDPHYS ---
Physician Documentation [facility] Name: Genesis Hu Age: 33 yrs Sex: Female : 1990 Arrival Date: 04/12/2024 Time: 07:12 Bed 7 Private MD: ED Physician Timmy Barrera HPI: 04/12 07:29 This 33 yrs old Female presents to ER via Unassigned with complaints of Foot Injury - rn left kicked microwave. 07:29 The patient presents with an injury, pain. The complaints affect the left foot. Onset: rn The symptoms/episode began/occurred just prior to arrival. Modifying factors: The symptoms are alleviated by nothing, the symptoms are aggravated by weight bearing, movement. Severity of symptoms: At their worst the symptoms were moderate, in the emergency department the symptoms are unchanged. The patient has not experienced similar symptoms in the past. Patient reports accidentally kicked a microwave that was on the floor this morning. Was barefoot. Reports pain to the lateral side of the left foot and the fifth toe.. Historical: - Allergies: 07:24 Amoxicillin; ld1 07:24 Bees; ld1 07:24 Bleach (Sodium Hypochlorite); ld1 07:24 PENICILLINS; ld1 07:24 POISON VIMAL; ld1 - PMHx: 07:24 Anxiety; hiatal hernia; Ovarian cyst; PCOS; peptic ulcer; ld1 - PSHx: 07:24 section; tubal ligation; laparoscopy; ld1 - Immunization history:: Adult Immunizations up to date. - Infectious Disease History:: Denies. - Social history:: Smoking status: Patient denies any tobacco usage or history of. - Family history:: not pertinent. - Hospitalizations: : No recent hospitalization is reported. ROS: 07:29 MS/extremity: Positive for pain, swelling, Negative for laceration, puncture, rn Exam: 07:29 Constitutional: This is a well developed, well nourished patient who is awake, alert, rn and in no acute distress. MS/ Extremity: Pulses equal, no cyanosis. Neurovascular intact. Mild tenderness along the lateral left foot, ecchymosis and swelling at the fifth toe. No laceration or bleeding. Vital Signs: 07:27 BP 135 / 74; Pulse 89; Resp 18; Temp 97.8; Pulse Ox 100% ; Weight 88.45 kg; Height 5 ap3 ft. 4 in. ; Pain 10/10; 07:40 BP 122 / 75; Pulse 71; Resp 18; Pulse Ox 100% on R/A; Pain 8/10; ld1 07:27 Body Mass Index 33.47 (88.45 kg, 162.56 cm) ap3 07:27 Pain Scale: Adult ap3 07:40 Pain Scale: Adult ld1 MDM: 07:18 Patient medically screened. rn 08:06 Differential diagnosis: fracture, sprain. Data reviewed: vital signs, nurses notes, rn radiologic studies, plain films, and as a result, I will discharge patient. Counseling: I had a detailed discussion with the patient and/or guardian regarding the historical points, exam findings, and any diagnostic results supporting the discharge/admit diagnosis, radiology results, the need for outpatient follow up, to return to the emergency department if symptoms worsen or persist or if there are any questions or concerns that arise at home. Special discussion: I discussed with the patient/guardian in detail that at this point there is no indication for admission to the hospital. It is understood, however, that if the symptoms persist or worsen the patient needs to return immediately for re-evaluation. 04/12 07:24 Order name: XRAY Foot LEFT 3 View; Complete Time: 08:06 rn Administered Medications: No medications were administered Disposition Summary: 04/12/24 08:07 Discharge Ordered Notes: Location: Home rn Problem: new rn Symptoms: have improved rn Condition: Stable rn Diagnosis - Contusion of left foot rn Followup: rn - With: Private Physician - When: As needed - Reason: Recheck today's complaints, Re-evaluation by your physician Discharge Instructions: - Discharge Summary Sheet rn - Foot Contusion rn Forms: - Medication Reconciliation Form rn - Antibiotic cad intern - Prescription Opioid Use rn - Patient Portal Instructions rn - Leadership Thank You Letter rn - Work release form ko1 Signatures: Dispatcher [employer] Timmy Anderson MD MD rn Sims, Lauren, RN RN ld1
--- NOTE | 2024-04-12 08:07 | ER ---
Nurse's Notes [facility] Name: Genesis Hu Age: 33 yrs Sex: Female : 1990 Arrival Date: 04/12/2024 Time: 07:12 Bed 7 Private MD: Diagnosis: Contusion of left foot Presentation: 04/12 07:27 Chief complaint: Patient states: she kicked a microwave, which is on the floor, with ap3 the outside of her bare left foot. patient is complaining of pain to left pinky toe. patient currently rates her pain as a 10/10 on the pain scale at this time. Coronavirus screen: At this time, the client does not indicate any symptoms associated with coronavirus-19. Ebola Screen: No symptoms or risks identified at this time. Initial Sepsis Screen: Does the patient meet any 2 criteria? No. Patient's initial sepsis screen is negative. Does the patient have a suspected source of infection? No. Patient's initial sepsis screen is negative. Risk Assessment: Do you want to hurt yourself or someone else? Patient reports no desire to harm self or others. Onset of symptoms was April 12, 2024. 07:27 Method Of Arrival: Wheelchair ap3 07:27 Acuity: KRISTIN 4 ap3 Triage Assessment: 07:29 General: Appears in no apparent distress. Behavior is calm, cooperative, appropriate ap3 for age. Pain: Complains of pain in left fifth toe and Left fifth toenail Pain currently is 10 out of 10 on a pain scale. Pain began suddenly. Neuro: Level of Consciousness is awake, alert, obeys commands, Oriented to person, place, time, situation, Appropriate for age Speech is normal. Cardiovascular: Patient's skin is warm and dry. Respiratory: Airway is patent Respiratory effort is even, unlabored, Respiratory pattern is regular, symmetrical. Musculoskeletal: Reports pain in left foot. Historical: - Allergies: 07:24 Amoxicillin; ld1 07:24 Bees; ld1 07:24 Bleach (Sodium Hypochlorite); ld1 07:24 PENICILLINS; ld1 07:24 POISON VIMAL; ld1 - PMHx: 07:24 Anxiety; hiatal hernia; Ovarian cyst; PCOS; peptic ulcer; ld1 - PSHx: 07:24 section; tubal ligation; laparoscopy; ld1 - Immunization history:: Adult Immunizations up to date. - Infectious Disease History:: Denies. - Social history:: Smoking status: Patient denies any tobacco usage or history of. - Family history:: not pertinent. - Hospitalizations: : No recent hospitalization is reported. Screenin:30 Abuse screen: Denies threats or abuse. Nutritional screening: No deficits noted. ap3 Tuberculosis screening: No symptoms or risk factors identified. 07:40 [facility] ED Fall Risk Assessment (Adult) History of falling in the last 3 months, ld1 including since admission No falls in past 3 months (0 pts). Assessment: 07:40 Reassessment: Patient appears in no apparent distress at this time. General: Appears in ld1 no apparent distress. comfortable, Behavior is calm, cooperative, appropriate for age. Pain: Complains of pain in left foot and Left fifth toenail and left fifth toe Pain does not radiate. Pain currently is 8 out of 10 on a pain scale. Quality of pain is described as throbbing, Pain began suddenly, Is continuous. Neuro: Level of Consciousness is awake, alert, obeys commands, Oriented to person, place, time, situation. Cardiovascular: Capillary refill < 3 seconds Patient's skin is warm and dry. Respiratory: Airway is patent Respiratory effort is even, unlabored. GI: Abdomen is flat, non-distended. : No signs and/or symptoms were reported regarding the genitourinary system. EENT: No signs and/or symptoms were reported regarding the EENT system. Derm: No signs and/or symptoms reported regarding the dermatologic system. Musculoskeletal: No signs and/or symptoms reported regarding the musculoskeletal system. Vital Signs: 07:27 BP 135 / 74; Pulse 89; Resp 18; Temp 97.8; Pulse Ox 100% ; Weight 88.45 kg; Height 5 ap3 ft. 4 in. ; Pain 10/10; 07:40 BP 122 / 75; Pulse 71; Resp 18; Pulse Ox 100% on R/A; Pain 8/10; ld1 07:27 Body Mass Index 33.47 (88.45 kg, 162.56 cm) ap3 07:27 Pain Scale: Adult ap3 07:40 Pain Scale: Adult ld1 ED Course: 07:17 Patient arrived in ED. im 07:18 Timmy Barrera MD is Attending Physician. rn 07:24 Alia Us, RN is Primary Nurse. ld1 07:29 Triage completed. ap3 07:30 Arm band placed on right wrist. ap3 07:30 Patient has correct armband on for positive identification. Call light in reach. Side ap3 rails up X 1. Provided Education on: call light education. Pulse ox on. NIBP on. 07:40 No provider procedures requiring assistance completed. ld1 07:55 XRAY Foot LEFT 3 View In Process Unspecified. EDMS 08:25 Patient did not have IV access during this emergency room visit. ko1 Administered Medications: No medications were administered Medication: 07:40 VIS not applicable for this client. ld1 Outcome: 08:07 Discharge ordered by . rn 08:25 Discharged to home ambulatory, ko1 08:25 Condition: good 08:25 Discharge instructions given to patient, Instructed on discharge instructions, follow up and referral plans. Demonstrated understanding of instructions, follow-up care, 08:25 Patient left the ED. ko1 Signatures: Dispatcher [employer] EDUT Timmy Barrera MD MD rn Prokisch, Amanda RN RN ap3 Alia Us, RN RN ld1 Nenita Mazariegos, IRENE RN ko1 Clara Cr
[2024-04-12 08:46] VITALS: BP 122/75; TEMP 97.8; O2SAT 100
== END 2024-04-12 08:25 | disposition home or self-care (01) ==
LOC: ER 07:12
DX: S90.32XA Contusion of left foot, initial encounter (principal); W22.09XA Striking against other stationary object, initial encounter; Z91.030 Bee allergy status; Z88.0 Allergy status to penicillin; Z91.048 Other nonmedicinal substance allergy status; Z91.09 Other allergy status, other than to drugs and biological substances
CPT/HCPCS: 99283

== ENCOUNTER 2024-06-07 09:52 | Emergency (ER) | payer OTHER ==
[2024-06-07 11:03] LABS: SARS-CoV-2 Antigen CONTROL BLUE LINE VIS/BG OK; SARS-CoV-2 Antigen Rapid Res Negative (Negative)
--- NOTE | 2024-06-07 11:21 | ER ---
Nurse's Notes [facility] Name: Genesis Hu Age: 33 yrs Sex: Female : 1990 Arrival Date: 06/07/2024 Time: 09:52 Bed 12 Private MD: Diagnosis: Acute pharyngitis, unspecified Presentation: 06/07 10:18 Chief complaint: Patient states: she started having pain in her throat, fever and ap3 chills approx 2 days ago. Coronavirus screen: Client presents with at least one sign or symptom that may indicate coronavirus-19. Ebola Screen: No symptoms or risks identified at this time. Initial Sepsis Screen: Does the patient meet any 2 criteria? No. Patient's initial sepsis screen is negative. Does the patient have a suspected source of infection? No. Patient's initial sepsis screen is negative. Risk Assessment: Do you want to hurt yourself or someone else? Patient reports no desire to harm self or others. Onset of symptoms was June 05, 2024. 10:18 Method Of Arrival: Ambulatory ap3 10:18 Acuity: KRISTIN 4 ap3 Triage Assessment: 10:20 General: Appears in no apparent distress. Behavior is calm, cooperative, appropriate ap3 for age, Reports chills for fever for feeling ill for. Pain: Complains of pain in throat. EENT: Reports pain when swallowing. Neuro: Level of Consciousness is awake, alert, obeys commands, Oriented to person, place, time, situation, Appropriate for age. Cardiovascular: Patient's skin is warm and dry. Respiratory: Airway is patent Respiratory effort is even, unlabored, Respiratory pattern is regular, symmetrical. 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 - Infectious Disease History:: Denies. - Social history:: Smoking status: Patient denies any tobacco usage or history of. - Family history:: not pertinent. Screenin:20 [facility] ED Fall Risk Assessment (Adult) History of falling in the last 3 months, ap3 including since admission No falls in past 3 months (0 pts) Confusion or Disorientation No (0 pts) Intoxicated or Sedated No (0 pts) Impaired Gait No (0 pts) Mobility Assist Device Used No (0 pt) Altered Elimination No (0 pt) Score/Fall Risk Level 0 - 2 = Low Risk Oriented to surroundings, Maintained a safe environment, Educated pt \T\ family on fall prevention, incl call for assistance when getting out of bed, Assessed \T\ reinforced patient's understanding of fall precautions, Hourly rounding (assess needs \T\ fall precautionary measures) done, Used ambulatory aids as needed (educated on \T\ assisted with), Used gait belt as appropriate. Abuse screen: Denies threats or abuse. Nutritional screening: No deficits noted. Tuberculosis screening: No symptoms or risk factors identified. Assessment: 11:52 EENT: Throat is clear. ap3 11:53 Respiratory: ap3 Vital Signs: 10:18 BP 129 / 81; Pulse 70; Resp 17; Temp 97.9; Pulse Ox 100% ; Weight 90.72 kg; Height 5 ap3 ft. 4 in. ; Pain 8/10; 10:18 Body Mass Index 34.33 (90.72 kg, 162.56 cm) ap3 10:18 Pain Scale: Adult ap3 ED Course: 09:55 Patient arrived in ED. im 09:56 Eddie Danielle MD is Attending Physician. sarah 10:19 Triage completed. ap3 10:20 Arm band placed on right wrist. ap3 10:21 Patient has correct armband on for positive identification. ap3 10:26 COVID swab sent to lab. Flu and/or RSV swab sent to lab. Strep swab sent to lab. ap3 11:20 Jill Aguila RN is Primary Nurse. ap3 11:51 No provider procedures requiring assistance completed. Patient did not have IV access ap3 during this emergency room visit. 11:52 Provided Education on: discharge instructions. ap3 Administered Medications: 11:25 Drug: AZITHromycin PO 500 mg PO once Route: PO; ap3 11:53 Follow up: Response: No adverse reaction ap3 Medication: 11:52 VIS not applicable for this client. ap3 Outcome: 11:21 Discharge ordered by . sarah 11:52 Discharged to home ambulatory, ap3 11:52 Condition: good 11:52 Discharge instructions given to patient, Instructed on discharge instructions, follow up and referral plans. medication usage, Demonstrated understanding of instructions, follow-up care, medications, Prescriptions given X 2, 11:53 Patient left the ED. ap3 Signatures: Eddie Danielle MD MD cha Prokisch, Amanda, RN RN ap3 Clara Cr
[2024-06-07] MEDS ORDERED: AZITHROMYCIN 250 MG TAB ONE (11:22)
--- NOTE | 2024-06-07 11:22 | EDPHYS ---
Physician Documentation [facility] Name: Genesis Hu Age: 33 yrs Sex: Female : 1990 Arrival Date: 06/07/2024 Time: 09:52 Bed 12 Private MD: ED Physician Eddie Danielle HPI: 06/07 10:31 This 33 yrs old Female presents to ER via Ambulatory with complaints of Sore sarah Throat, Fever. 10:31 The patient presents with sore throat. The patient describes throat pain as burning, sarah constant. Onset: The symptoms/episode began/occurred 2 day(s) ago. Severity of symptoms: At their worst the symptoms were mild, in the emergency department the symptoms are unchanged. Modifying factors: The symptoms are alleviated by fluids, the symptoms are aggravated by foods, swallowing, Patient's oral intake status: good. Associated signs and symptoms: The patient has no apparent associated signs or symptoms. The patient has experienced similar episodes in the past, multiple times. 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 - Infectious Disease History:: Denies. - Social history:: Smoking status: Patient denies any tobacco usage or history of. - Family history:: not pertinent. ROS: 10:31 Constitutional: Negative for fever, chills, and weight loss, Eyes: Negative for injury, sarah pain, redness, and discharge, Neck: Negative for injury, pain, and swelling, Cardiovascular: Negative for chest pain, palpitations, and edema, Respiratory: Negative for shortness of breath, cough, wheezing, and pleuritic chest pain, Abdomen/GI: Negative for abdominal pain, nausea, vomiting, diarrhea, and constipation, Back: Negative for injury and pain, : Negative for injury, bleeding, discharge, and swelling, MS/Extremity: Negative for injury and deformity, Skin: Negative for injury, rash, and discoloration, Neuro: Negative for headache, weakness, numbness, tingling, and seizure, Psych: Negative for depression, anxiety, suicide ideation, homicidal ideation, and hallucinations, Allergy/Immunology: Negative for hives, rash, and allergies, Endocrine: Negative for neck swelling, polydipsia, polyuria, polyphagia, and marked weight changes, Hematologic/Lymphatic: Negative for swollen nodes, abnormal bleeding, and unusual bruising, 10:31 ENT: Positive for sore throat, Exam: 10:31 Constitutional: This is a well developed, well nourished patient who is awake, alert, sarah and in no acute distress. Head/Face: Normocephalic, atraumatic. Eyes: Pupils equal round and reactive to light, extra-ocular motions intact. Lids and lashes normal. Conjunctiva and sclera are non-icteric and not injected. Cornea within normal limits. Periorbital areas with no swelling, redness, or edema. Neck: Trachea midline, no thyromegaly or masses palpated, and no cervical lymphadenopathy. Supple, full range of motion without nuchal rigidity, or vertebral point tenderness. No Meningismus. Chest/axilla: Normal chest wall appearance and motion. Nontender with no deformity. No lesions are appreciated. Cardiovascular: Regular rate and rhythm with a normal S1 and S2. No gallops, murmurs, or rubs. Normal PMI, no JVD. No pulse deficits. Respiratory: Lungs have equal breath sounds bilaterally, clear to auscultation and percussion. No rales, rhonchi or wheezes noted. No increased work of breathing, no retractions or nasal flaring. Abdomen/GI: Soft, non-tender, with normal bowel sounds. No distension or tympany. No guarding or rebound. No evidence of tenderness throughout. Back: No spinal tenderness. No costovertebral tenderness. Full range of motion. Skin: Warm, dry with normal turgor. Normal color with no rashes, no lesions, and no evidence of cellulitis. MS/ Extremity: Pulses equal, no cyanosis. Neurovascular intact. Full, normal range of motion. Neuro: Awake and alert, GCS 15, oriented to person, place, time, and situation. Cranial nerves II-XII grossly intact. Motor strength 5/5 in all extremities. Sensory grossly intact. Cerebellar exam normal. Normal gait. Psych: Awake, alert, with orientation to person, place and time. Behavior, mood, and affect are within normal limits. 10:31 ENT: Posterior pharynx: Airway: normal, no evidence of obstruction, Tonsils: with erythema, Uvula: midline, non-edematous, no erythema, swelling, that is mild, erythema, that is mild, exudate, is not appreciated, peritonsillar mass, is not appreciated, pooling of secretions, is not appreciated, Vital Signs: 10:18 BP 129 / 81; Pulse 70; Resp 17; Temp 97.9; Pulse Ox 100% ; Weight 90.72 kg; Height 5 ap3 ft. 4 in. ; Pain 8/10; 10:18 Body Mass Index 34.33 (90.72 kg, 162.56 cm) ap3 10:18 Pain Scale: Adult ap3 MDM: 09:56 Patient medically screened. [facility] 10:34 Differential diagnosis: cocksackie virus, epiglottitis, gingivostomatitis, group A sarah strep tonsillitis, influenza, laryngitis, mononucleosis, pharyngitis, tonsillitis, tracheobronchitis, upper respiratory infection, uvulitis, viral syndrome. Data reviewed: vital signs, nurses notes, lab test result(s). Consideration of Admission/Observation Escalation of care including admission/observation considered. I considered the following discharge prescriptions or medication management in the emergency department Medications were administered in the Emergency Department. See MAR. Test considered but Not performed: Labs: no labs. Historians other than the Patient: pt well informed. Care significantly affected by the following chronic conditions: anxiety, hital hernia, pcos, pud. Counseling: I had a detailed discussion with the patient and/or guardian regarding the historical points, exam findings, and any diagnostic results supporting the discharge/admit diagnosis, lab results, the need for outpatient follow up, for definitive care, a family practitioner. 06/07 09:56 Order name: Strep [facility] 06/07 09:56 Order name: Flu; Complete Time: 11:21 [facility] 06/07 09:56 Order name: SARS RAPID; Complete Time: 11:21 [facility] 06/07 11:07 Order name: Throat Culture EDMS Administered Medications: 11:25 Drug: AZITHromycin PO 500 mg PO once Route: PO; ap3 11:53 Follow up: Response: No adverse reaction ap3 Disposition Summary: 06/07/24 11:21 Discharge Ordered Notes: Location: Home [facility] Problem: new sarah Symptoms: have improved sarah Condition: Stable sarah Diagnosis - Acute pharyngitis, unspecified sarah Followup: sarah - With: Private Physician - When: 2 - 3 days - Reason: Recheck today's complaints, Continuance of care, Re-evaluation by your physician Discharge Instructions: - Discharge Summary Sheet sarah - Pharyngitis sarah - Sore Throat sarah - Upper Respiratory Infection, Adult sarah - Upper Respiratory Infection, Adult, [id number] sarah - Pharyngitis, [id number] [facility] Forms: - Medication Reconciliation Form [facility] - Antibiotic Education sarah - Prescription Opioid Use sarah - Patient Portal Instructions [facility] - Leadership Thank You Letter [facility] - Work release form ap3 Prescriptions: - Tessalon Perles 100 mg Oral capsule - take 2 capsule ORAL route every 8 hours As needed; 30 capsule; Refills: 0, [facility] Product Selection Permitted - Zithromax 500 mg Oral Tablet - take 1 tablet ORAL route once daily for 5 days; 5 tablet; Refills: 0, Product [facility] Selection Permitted Signatures: Dispatcher [employer] Eddie Aguilar MD MD cha Prokisch, Amanda, RN RN ap3
[2024-06-07 13:11] VITALS: BP 129/81; TEMP 97.9; O2SAT 100
== END 2024-06-07 11:53 | disposition home or self-care (01) ==
LOC: ER 09:52
DX: J02.9 Acute pharyngitis, unspecified (principal); Z11.52 Encounter for screening for COVID-19
CPT/HCPCS: 36415; 87070; 87081; 87804; 87811

== ENCOUNTER 2024-09-06 18:00 | Emergency (ER) | payer OTHER ==
[2024-09-06] MEDS ORDERED: KETOROLAC 30 MG/ML INJ ONE (19:26)
--- NOTE | 2024-09-06 20:16 | ER ---
Nurse's Notes [facility] Name: Genesis Hu Age: 34 yrs Sex: Female : 1990 Arrival Date: 09/06/2024 Time: 18:00 Bed 12 Private MD: Diagnosis: Sprain of other specified parts of right knee;Fall on same level, unspecified;Fall on same level from slipping, tripping and stumbling without subsequent striking against object Presentation: 09/06 18:32 Chief complaint: Patient states: Pain to her right leg from hip to ankle s/p slip and cm10 fall today. Coronavirus screen: Client denies travel out of the [place] in the last 14 days. Ebola Screen: Patient denies travel to an Ebola-affected area in the 21 days before illness onset. No symptoms or risks identified at this time. Initial Sepsis Screen: Does the patient meet any 2 criteria? HR > 90 bpm. Does the patient have a suspected source of infection? No. Patient's initial sepsis screen is negative. Risk Assessment: Do you want to hurt yourself or someone else? Patient reports no desire to harm self or others. Onset of symptoms was September 06, 2024. 18:32 Method Of Arrival: Ambulatory cm10 18:32 Acuity: KRISTIN 4 cm10 Triage Assessment: 18:34 General: Appears in no apparent distress. uncomfortable, Behavior is calm, cooperative. cm10 Neuro: No deficits noted. Level of Consciousness is awake, alert, obeys commands, Oriented to person, place, time, situation, Appropriate for age. Respiratory: No deficits noted. Airway is patent Respiratory effort is even, unlabored, Respiratory pattern is regular, symmetrical. Historical: - Allergies: 18:33 Amoxicillin; cm10 18:33 Bees; cm10 18:33 Bleach (Sodium Hypochlorite); cm10 18:33 PENICILLINS; cm10 18:33 POISON VIMAL; cm10 18:33 Latex, Natural Rubber; cm10 18:33 Mushrooms; cm10 - PMHx: 18:33 Anxiety; hiatal hernia; Ovarian cyst; PCOS; peptic ulcer; Seizure; cm10 - PSHx: 18:33 section; laparoscopy; tubal ligation; cm10 - Immunization history:: Adult Immunizations up to date. - Infectious Disease History:: Denies. - Social history:: Smoking status: Patient denies any tobacco usage or history of. Screenin:35 [facility] ED Fall Risk Assessment (Adult) History of falling in the last 3 months, rs5 including since admission Yes- single mechanical fall (1 pt) Confusion or Disorientation No (0 pts) Intoxicated or Sedated No (0 pts) Impaired Gait Yes (1 pt) Mobility Assist Device Used No (0 pt) Altered Elimination No (0 pt) Score/Fall Risk Level 0 - 2 = Low Risk Oriented to surroundings, Maintained a safe environment. Abuse screen:. Nutritional screening: No deficits noted. Tuberculosis screening: No symptoms or risk factors identified. Assessment: 18:35 General: Appears in no apparent distress. uncomfortable, Behavior is calm, cooperative. rs5 Pain: Complains of pain in right leg Pain currently is 8 out of 10 on a pain scale. Quality of pain is described as aching, Is continuous. Neuro: Level of Consciousness is awake, alert, obeys commands, Oriented to person, place, time, situation. Cardiovascular: Patient's skin is warm and dry. Respiratory: Airway is patent Respiratory effort is even, unlabored, Respiratory pattern is regular, symmetrical. GI: Abdomen is round non-distended, Abd is soft and non tender X 4 quads. : No signs and/or symptoms were reported regarding the genitourinary system. EENT: No signs and/or symptoms were reported regarding the EENT system. Derm: Skin is intact, Skin is pink, warm \T\ dry. Musculoskeletal: Range of motion: limited in right leg. 18:45 Reassessment: Patient and/or family updated on plan of care and expected duration. Pain rs5 level reassessed. Patient is alert, oriented x 3, equal unlabored respirations, skin warm/dry/pink. 19:22 Reassessment: Patient appears in no apparent distress at this time. Patient and/or jb4 family updated on plan of care and expected duration. Pain level reassessed. Patient is alert, oriented x 3, equal unlabored respirations, skin warm/dry/pink. 20:36 Reassessment: Patient appears in no apparent distress at this time. Patient and/or jb4 family updated on plan of care and expected duration. Pain level reassessed. Patient is alert, oriented x 3, equal unlabored respirations, skin warm/dry/pink. Vital Signs: 18:32 BP 127 / 77; Pulse 97; Resp 18; Temp 98.3(TE); Pulse Ox 100% ; Weight 96.62 kg; Height cm10 5 ft. 4 in. ; Pain 10/10; 18:32 Body Mass Index 36.56 (96.62 kg, 162.56 cm) cm10 18:32 Pain Scale: Adult cm10 ED Course: 18:02 Patient arrived in ED. im 18:13 Valerie Mendes MD is Attending Physician. gb1 18:33 Triage completed. cm10 18:34 Arm band placed on right wrist. Patient placed in waiting room. cm10 18:35 Patient has correct armband on for positive identification. Placed in gown. Bed in low rs5 position. Call light in reach. Side rails up X2. 18:35 No provider procedures requiring assistance completed. rs5 18:43 Fitz Warren, RN is Primary Nurse. rs5 18:57 Primary Nurse role handed off by Fitz Warren RN jb4 18:57 Peter Charles, RN is Primary Nurse. jb4 19:51 Knee Right 3 View XRAY In Process Unspecified. EDMS 20:36 Provided Education on: discharge instructions.. jb4 20:36 Patient did not have IV access during this emergency room visit. jb4 Administered Medications: 19:38 Drug: Ketorolac IM 60 mg IM once Route: IM; Site: right gluteus; jb4 Medication: 18:45 VIS not applicable for this client. rs5 Outcome: 20:15 Discharge ordered by . gb1 20:36 Discharged to home ambulatory, jb4 20:36 Condition: stable 20:36 Discharge instructions given to patient, Instructed on discharge instructions, follow up and referral plans. medication usage, Demonstrated understanding of instructions, follow-up care, medications, Prescriptions given X 1, 20:37 Patient left the ED. jb4 Signatures: Dispatcher [employer] EDMS Peter Charles, RN RN jb4 Fitz Warren, RN IRENE rs5 Clara Cr Clarissa, RN RN cm10 Blocker, Gina, MD MD gb1
--- NOTE | 2024-09-06 20:16 | EDPHYS ---
Physician Documentation [facility] Name: Genesis Hu Age: 34 yrs Sex: Female : 1990 Arrival Date: 09/06/2024 Time: 18:00 Bed 12 Private MD: ED Physician Valerie Mendes HPI: 09/06 19:17 This 34 yrs old Female presents to ER via Ambulatory with complaints of Fall gb1 Injury. 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 She is able to walk but it is painful. She has a history of anxiety, hiatal hernia, ovarian cyst, PCOS, peptic ulcers and seizures. It is worse when she flexes her knee. She denies any head strike or loss of consciousness.. Historical: - Allergies: 18:33 Amoxicillin; cm10 18:33 Bees; cm10 18:33 Bleach (Sodium Hypochlorite); cm10 18:33 PENICILLINS; cm10 18:33 POISON VIMAL; cm10 18:33 Latex, Natural Rubber; cm10 18:33 Mushrooms; cm10 - PMHx: 18:33 Anxiety; hiatal hernia; Ovarian cyst; PCOS; peptic ulcer; Seizure; cm10 - PSHx: 18:33 section; laparoscopy; tubal ligation; cm10 - Immunization history:: Adult Immunizations up to date. - Infectious Disease History:: Denies. - Social history:: Smoking status: Patient denies any tobacco usage or history of. Exam: 19:17 Constitutional: This is a well developed, well nourished patient who is awake, alert, gb1 and in no acute distress. Head/Face: Normocephalic, atraumatic. Eyes: Pupils equal round and reactive to light, extra-ocular motions intact. Lids and lashes normal. Conjunctiva and sclera are non-icteric and not injected. Cornea within normal limits. Periorbital areas with no swelling, redness, or edema. ENT: Nares patent. No nasal discharge, no septal abnormalities noted. Tympanic membranes are normal and external auditory canals are clear. Oropharynx with no redness, swelling, or masses, exudates, or evidence of obstruction, uvula midline. Mucous membranes moist. Neck: Trachea midline, no thyromegaly or masses palpated, and no cervical lymphadenopathy. Supple, full range of motion without nuchal rigidity, or vertebral point tenderness. No Meningismus. Chest/axilla: Normal chest wall appearance and motion. Nontender with no deformity. No lesions are appreciated. Cardiovascular: Regular rate and rhythm with a normal S1 and S2. No gallops, murmurs, or rubs. Normal PMI, no JVD. No pulse deficits. Respiratory: Lungs have equal breath sounds bilaterally, clear to auscultation and percussion. No rales, rhonchi or wheezes noted. No increased work of breathing, no retractions or nasal flaring. Abdomen/GI: Soft, non-tender, with normal bowel sounds. No distension or tympany. No guarding or rebound. No evidence of tenderness throughout. Skin: Warm, dry with normal turgor. Normal color with no rashes, no lesions, and no evidence of cellulitis. MS/ Extremity: Pulses equal, no cyanosis. Neurovascular intact. Full, limited range of motion due to pain in the right knee. No obvious deformities or any sign of patella riding high. Vital Signs: 18:32 BP 127 / 77; Pulse 97; Resp 18; Temp 98.3(TE); Pulse Ox 100% ; Weight 96.62 kg; Height cm10 5 ft. 4 in. ; Pain 10/10; 18:32 Body Mass Index 36.56 (96.62 kg, 162.56 cm) cm10 18:32 Pain Scale: Adult cm10 MDM: 18:41 Medical Screening Exam initiated gb1 19:17 Data reviewed: radiologic studies, plain films. gb1 20:16 ED course: The right knee was negative for any fracture or dislocation. No sign of gb1 patella fracture. Patient I would do recommend to take NSAIDs for pain and follow-up as an outpatient as needed with an MRI and consultation with her primary care doctor.. 09/06 19:15 Order name: Knee Right 3 View XRAY gb1 Administered Medications: 19:38 Drug: Ketorolac IM 60 mg IM once Route: IM; Site: right gluteus; jb4 Disposition Summary: 09/06/24 20:15 Discharge Ordered Notes: Location: Home gb1 Condition: Stable gb1 Diagnosis - Sprain of other specified parts of right knee gb1 - Fall on same level, unspecified gb1 - Fall on same level from slipping, tripping and stumbling without subsequent gb1 striking against object Followup: gb1 - With: Private Physician - When: - Reason: Recheck today's complaints Discharge Instructions: - Discharge Summary Sheet gb1 - Acute Knee Pain, Adult gb1 - Knee Sprain, Adult, [id number] gb1 Forms: - Medication Reconciliation Form gb1 - Antibiotic Education gb1 - Prescription Opioid Use gb1 - Patient Portal Instructions gb1 - Leadership Thank You Letter gb1 Prescriptions: - Ibuprofen 800 mg Oral Tablet - take 1 tablet ORAL route every 8 hours As needed take with food; 30 tablet; gb1 Refills: 0, Product Selection Permitted Signatures: Dispatcher [employer] EDPeter Rhodes RN RN jb4 Hailey Orantes RN RN cm10 Valerie Mendes MD MD gb1
[2024-09-06 20:42] VITALS: BP 127/77; TEMP 98.3; O2SAT 100
--- NOTE | 2024-09-06 20:44 | RAD REPORT ---
EXAM: XR Knee Right 3 View HISTORY: [facility] MAIN PAIN Bed Name: 12 COMPARISON: None TECHNIQUE: 3 views of the right knee were obtained. FINDINGS: No knee effusion is seen. There is no evidence of acute fracture or dislocation. Mild dege nerative changes along the patellofemoral articulation, stable. No soft tissue swelling or other soft tissue abnormality is present. IMPRESSION: Mild patellofemoral degenerative changes.
== END 2024-09-06 20:37 | disposition home or self-care (01) ==
LOC: ER 18:00
DX: S83.8X1A Sprain of other specified parts of right knee, initial encounter (principal); W01.0XXA Fall on same level from slipping, tripping and stumbling without subsequent striking against object, initial encounter; Y92.511 Restaurant or cafe as the place of occurrence of the external cause; Y99.0 Civilian activity done for income or pay